=== PATIENT | female | born 1995 | race Caucasian/White ===

== ENCOUNTER 2023-12-08 09:33 | Outpatient (OUT) | payer MEDICAID, SELFPAY ==
--- NOTE | 2023-12-08 09:36 | US_ITS ---
[address] [address] Patient Name: ZAINAB SAAVEDRA MRN: [id number] date: 1995 Sex: F Assigned Patient Location: [facility] Current Patient Location: [facility] Accession/Order Number: [id number] Exam Date: 12/08/2023 09:40 Report Date: 12/08/2023 10:17 At the request of: SHERRY REYNA Procedure: US OB transvaginal EXAMINATION: US OB transvaginal HISTORY: MISSED MENSES COMPARISON: No relevant comparison available. FINDINGS: GESTATIONAL SAC: Present and normal appearing. YOLK SAC: Present and normal appearing. POLE: Present and normal appearing. CARDIAC: Present. UTERUS: Normal size and appearance. OVARIES: Right: Normal. Left: Normal. CERVIX: 3.9 cm in length and closed. CUL-DE-SAC: Normal. OTHER: None. AGE BY LMP: 9 weeks 3 days EBEN BY LMP: 07/09/2024 AGE BY US CRL: 9 weeks 3 days EBEN BY US CRL: 07/09/2024 US/US OB transvaginal IMPRESSION: 1. Single live intrauterine . Electronically authenticated by: SUKHWINDER RASHID Date: 12/08/2023 10:17
== END 2023-12-08 09:34 | disposition home or self-care (01) ==
LOC: NOMS 09:34
PROVIDERS: PCP Family Medicine; Visit Provider Obstetrics & Gynecology
DX: Z34.91 Encounter for supervision of normal pregnancy, unspecified, first trimester (principal); Z3A.09 9 weeks gestation of pregnancy; N92.6 Irregular menstruation, unspecified
CPT/HCPCS: 76817

== ENCOUNTER 2024-02-06 20:04 | Outpatient (REF) | payer MEDICAID, SELFPAY | END 2024-02-06 20:05 | disposition home or self-care (01) | LOC: LAB 20:04 | PROVIDERS: PCP Family Medicine; Visit Provider Obstetrics & Gynecology | DX: Z01.419 Encounter for gynecological examination (general) (routine) without abnormal findings (principal) | CPT/HCPCS: 87624; 88175 ==

== ENCOUNTER 2024-02-16 12:31 | Outpatient (OUT) | payer MEDICAID, SELFPAY ==
--- OUTSIDE RECORDS SUMMARY | 2024-02-16 12:39 | XMS_ITS | CCD ---
Author Organization [facility] Inform ion Partnership [facility] Care Team Providers Care Account Services Specialist Name Role Phone Trang Harrison Unavailable Unavailable Prema Abraham Unavailable Unavaila ble PREMA ABRAHAM Admitting Unavailable PREMA ABRAHAM Attending Unavailable PREMA ABRAHAM Primary Care Unavailable ALLISON TOWNSEND V Consulting Unavailable PREMA ABRAHAM Consulting Unavailable Prema Abraham MD Primary Care Provider Prema Abraham MD Primary Care Provider PREMA ABRAHAM Primary Care Unavailable SHERRY REYNA Referring Unavailable PREMA ABRAHAM Referring Unavailable PREMA ABRAHAM Primary Care Unavailable SURESH DIAZ Attending Unavailable PREMA ABRAHAM Referring Unavailable PREMA ABRAHAM Primary Care Unavailable PREMA ABRAHAM Referring Unavailable PREMA ABRAHAM Primary Care Unavailable PREMA ABRAHAM Referring Unavailable SHERRY REYNA Attending Unavailable Medications Current Medications Medication Drug Class(es) Dates Sig (Normalized) Sig (Original) benzonatate 100 mg oral capsule (2 sources) Non-narcotic Antitussive Start: 10-08-2023 take 1 capsule by mouth three times daily as needed for cough benzonatate (TESSALON PERLES) 100 mg capsule Take 1 capsule (100 mg total) by mouth 3 (three) times a day as needed for cough. 21 capsule 0 10/08/2023 Active cholecalciferol 0.025 mg chewable tablet (3 sources) Vitamin D cholecalciferol, vitamin D3, 25 mcg (1,000 unit) tablet,chewable Chew and swallow daily. 0 Active inFLIXimab-abda 100 mg injection (4 sources) Tumor Necrosis Factor Leo inFLIXimab-abda (RENFLEXIS) 100 mg injection Infuse 5 mg/kg into a venous catheter once. 0 Active inFLIXimab-axxq (AVSOLA) 100 mg injection Infuse 5 mg/kg into a venous catheter every 60 (sixty) days. 0 Active ondansetron 4 mg disintegrating oral tablet (2 sources) Serotonin-3 Receptor Antagonist Start: 10-08-2023 take 1 tablet by mouth every eight hours as needed for nausea ondansetron ODT (ZOFRAN ODT) 4 mg disintegrating tablet Dissolve 1 tablet (4 mg total) on tongue every 8 (eight) hours as needed for nausea for up to 10 doses. 10 tablet 0 10/08/2023 Active vit37/iron/folic acid (PRENATA ORAL) (3 sources) vit37/iron/folic acid (PRENATA ORAL) Take by mouth daily. 0 Active tiZANidine 4 mg oral tablet (3 sources) Central alpha-2 Adrenergic Agonist Start: 08-17-2021 tiZANidine (ZANAFLEX) 4 mg tablet Take 4 mg by mouth as needed in the morning and 4 mg as needed in the evening. 0 08/17/2021 Active vitamin b12 2.5 mg sublingual tablet (3 sources) Vitamin B12 take 1 tablet under the tongue once daily cyanocobalamin, vitamin B-12, 2,500 mcg tablet, sublingual Place 1 tablet under the tongue once daily. 0 Active Completed/Discontinued Medications Medication Drug Class(es) Dates Sig (Normalized) Sig (Original) inFLIXimab-axxq (AVSOLA) 5 mg/kg = 300 mg in sodium chloride 0.9 % 250 mL IVPB (2 sources) Start: 10-25-2023 End: 10-25-2023 inFLIXimab-axxq (AVSOLA) 5 mg/kg = 300 mg in sodium chloride 0.9 % 250 mL IVPB Start: 08-30-2023 End: 08-30-2023 inFLIXimab-axxq (AVSOLA) 5 m g/kg = 300 mg in sodium chloride 0.9 % 250 mL IVPB 1000 ml sodium chloride 9 mg /ml injection (2 sources) Start: 10-25-2023 End: 10-25-2023 sodium chloride 0.9 % infusi on Start: 08-30-2023 End: 08-30-2023 sodium chloride 0.9 % infusi on Problems Active Problems Problem Classification Problem Date Documented Da te Episodic/Chronic Genitourinary congenital anomalies (3 sources) Congenital hydronephrosis; Translations: [Congenital hydronephrosis] Onset: 12-03-2019 12-03-2019 Chronic Influenza (1 source) Influenza due to other identified influenza virus with other respiratory manifestations; Translations: [Influenza due to other identified influenza virus with other respiratory manifestations] Onset: 10-08-2023 Episodic Menstrual disorders (1 source) Irregular menstruation, unspecified; Translations: [Irregular menstruation, unspecified] Onset: 12-11-2023 Chronic Other skin disorders (1 source) Skin problem Onset: 10-08-2023 Episodic Regional enteritis and ulcerative colitis (11 sources) Crohn's disease of small AND large intestines; Translations: [Crohn's disease of both small and large intestine with unspecified complications] Onset: 12-03-2019 08-30-2023 Chronic Spondylosis; intervertebral disc disorders; other back problems (4 sources) Sciatica, right side; Translations: [SCIATICA RIGHT SIDE] Onset: 09-17-2019 Episodic Unclassified (1 source) Cold Like Symptoms Onset: 10-08-2023 Unclassified (1 source) Bleeding from stomach Onset: 10-08-2023 Unclassified (1 source) Outpatient Infusion Onset: 10-25-2023 Past or Other Problems Problem Classification Problem Date Documented Da te Episodic/Chronic Anal and rectal conditions (4 sources) Stricture of rectum; 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] Onset: 04-14-2020 04-14-2020 Episodic Mood disorders (3 sources) Mood disorders Onset: 03-04-2021 03-04-2021 Nutritional deficiencies (3 sources) Deficiency of macronutrients; Translations: [Unspecified severe protein-calorie malnutrition] Onset: 12-03-2019 Resolved: 04-14-2020 04-14-2020 Chronic Open wounds of head; neck; and trunk (3 sources) Finding of sacral region; Translations: [Unspecified open wound of lower back and pelvis without penetration into retroperitoneum, initial encounter] Onset: 10-30-2019 10-30-2019 Episodic Other gastrointestinal disorders (3 sources) Abdominal wall fistula; 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] Onset: 10-23-2019 10-23-2019 Episodic Ovarian cyst (3 sources) Cyst of right ovary; Translations: [Unspecified ovarian cyst, right side] Onset: 11-11-2021 11-11-2021 Episodic Results Test Name Value Interpretation Reference Range Facility CBC AND AUTO DIFFon 12-11-19 24 ABSOLUTE BASOPHIL 0.0 X10E9/L Normal 0.0-0.2 [facility] Comment on above: Performed By: #### C AGNES, 1989-11, HA1C, CBCA, 5196-1, 21065-8, 48657-0, 2132-9, 82358-1, 8014-3, 34411-9 #### [facility] ([id number]) [address], [address] [place] [address] ABSOLUTE NEUTROPHIL 5.5 X10E9/L Normal 1.5-6.6 [facility] Comment on above: Performed By: #### C AGNES, 1989-11, HA1C, CBCA, 5196-1, 32474-2, 82808-7, 2132-9, 91324-0, 8014-3, 42332-0 #### [facility] ([id number]) [address], [address] [place] [address] Basophils/100 WBC (Bld) 0.3 % Normal [facility] Comment on above: Performed By: #### C AGNES, 1989-11, HA1C, CBCA, 5196-1, 63778-4, 92825-1, 2132-9, 65954-3, 8014-3, 91949-6 #### [facility] ([id number]) [address], [address] [place] [address] Eosinophils (Bld) [#/Vol] 0.2 10*3/uL Normal 0.0-0.4 [facility] Comment on above: Performed By: #### C AGNES, 1989-11, HA1C, CBCA, 5196-1, 34427-1, 94072-8, 2132-9, 74564-6, 8014-3, 96368-6 #### [facility] ([id number]) [address], [address] [place] [address] Eosinophils/100 WBC (Bld) 2.6 % Normal [facility] Comment on above: Performed By: #### C AGNES, 1989-11, HA1C, CBCA, 5196-1, 42078-9, 19092-5, 2131-9, 99858-1, 8014-3, 33345-8 #### [facility] ([id number]) [address], [address] [place] [address] Erythrocyte distribution width (RBC) [Ratio] 13.3 % Normal 11.5-15.0 [facility] Comment on above: Performed By: #### C AGNES, 1989-11, HA1C, CBCA, 5196-1, 71765-4, 72496-2, 2131-9, 99952-6, 8014-3, 52204-0 #### [facility] ([id number]) [address], [address] [place] [address] Hematocrit (Bld) [Volume fraction] 40.5 % Normal 35-47 [facility] Comment on above: Performed By: #### C AGNES, 1989-11, HA1C, CBCA, 5196-1, 73974-4, 21716-7, 2131-9, 83025-6, 8014-3, 99526-5 #### [facility] ([id number]) [address], [address] [place] [address] Hemoglobin (Bld) [Mass/Vol] 14.2 g/dL Normal 11.7-15.5 [facility] Comment on above: Performed By: #### C AGNES, 1987-11, HA1C, CBCA, 5196-1, 57557-6, 94712-2, 2131-9, 75024-7, 8014-3, 25303-7 #### [facility] ([id number]) [address], [address] [place] [address] Lymphocytes (Bld) [#/Vol] 1.3 10*3/uL Normal 1.0-3.5 [facility] Comment on above: Performed By: #### C AGNES, 1989-11, HA1C, CBCA, 5196-1, 49663-0, 19788-8, 2132-9, 42611-1, 8014-3, 07313-4 #### [facility] ([id number]) [address], [address] [place] [address] Lymphocytes/100 WBC (Bld) 18.2 % Normal [facility] Comment on above: Performed By: #### C AGNES, 1989-11, HA1C, CBCA, 5196-1, 49403-5, 09577-8, 2131-9, 10137-5, 8014-3, 56070-0 #### [facility] ([id number]) [address], [address] [place] [address] MCH (RBC) [Entitic mass] 30.7 pg Normal 27-34 [facility] Comment on above: Performed By: #### C AGNES, 1989-11, HA1C, CBCA, 5196-1, 78969-2, 95433-6, 2131-9, 89809-3, 8014-3, 75008-0 #### [facility] ([id number]) [address], [address] [place] [address] MCHC (RBC) [Mass/Vol] 35.2 g/dL Normal 32-36 [facility] Comment on above: Performed By: #### C AGNES, 1987-11, HA1C, CBCA, 5196-1, 18303-8, 27340-7, 2131-9, 18804-9, 8014-3, 18515-1 #### [facility] ([id number]) [address], [address] [place] [address] MCV (RBC) [Entitic vol] 87 fL Normal 80-100 [facility] Comment on above: Performed By: #### C AGNES, 1989-11, HA1C, CBCA, 5196-1, 99455-0, 18931-7, 2131-9, 10852-2, 8014-3, 55783-6 #### [facility] ([id number]) [address], [address] [place] [address] Monocytes (Bld) [#/Vol] 0.4 10*3/uL Normal 0-0.9 [facility] Comment on above: Performed By: #### C AGNES, 1989-11, HA1C, CBCA, 5196-1, 23535-7, 36300-8, 2131-9, 93439-5, 8014-3, 63965-8 #### [facility] ([id number]) [address], [address] [place] [address] Monocytes/100 WBC (Bld) 5.1 % Normal [facility] Comment on above: Performed By: #### C AGNES, 1989-11, HA1C, CBCA, 5196-1, 25355-8, 91375-1, 9, 89821-1, 8014-3, 66545-6 #### [facility] ([id number]) [address], [address] [place] [address] Neutrophils/100 WBC (Bld) 73.8 % Normal [facility] Comment on above: Performed By: #### C AGNES, 1989-11, HA1C, CBCA, 5196-1, 71323-5, 79286-0, 2131-9, 96302-9, 8014-3, 45465-7 #### [facility] ([id number]) [address], [address] [place] [address] Platelet mean volume (Bld) [Entitic vol] 9.1 fL Normal 7-12 [facility] Comment on above: Performed By: #### C AGNES, 1987-11, HA1C, CBCA, 5196-1, 03702-1, 70917-5, 2131-9, 52284-0, 8014-3, 26244-3 #### [facility] ([id number]) [address], [address] [place] [address] Platelets (Bld) [#/Vol] 254 10*3/uL Normal 150-450 [facility] Comment on above: Performed By: #### C AGNES, 1987-11, HA1C, CBCA, 5196-1, 54621-5, 68928-7, 2132-9, 23664-5, 8014-3, 07660-3 #### [facility] ([id number]) [address], [address] [place] [address] RBC COUNT 4.63 X10E12/L Normal 3.80-5.20 [facility] Comment on above: Performed By: #### C AGNES, 1987-11, HA1C, CBCA, 5196-1, 63972-4, 00922-8, 2132-9, 33205-6, 8014-3, 71671-1 #### [facility] ([id number]) [address], [address] [place] [address] WBC (Bld) [#/Vol] 7.4 10*3/uL Normal 4.0-11.0 [facility] Comment on above: Performed By: #### Clyde ALARCON, 1989-11, HA1C, CBCA, 5196-1, 95210-5, 43082-2, 2132-9, 52359-5, 8014-3, 90216-0 #### [facility] ([id number]) [address], [address] [place] [address] COMPREHENSIVE METABOLIC PANE Jesse 12-11-2023 Albumin [Mass/Vol] 4.3 g/dL Normal 3.2-5.3 [facility] Comment on above: Performed By: #### Clyde ALARCON, 1989-11, HA1C, CBCA, 5196-1, 58150-4, 72415-5, 2132-9, 42190-6, 8014-3, 47990-0 #### [facility] ([id number]) [address], [address] [place] [address] ALP [Catalytic activity/Vol] 48 U/L Normal 39-130 [facility] Comment on above: Performed By: #### C AGNES, 1989-11, HA1C, CBCA, 5196-1, 38832-6, 96678-5, 2132-9, 45319-8, 8014-3, 29781-7 #### [facility] ([id number]) [address], [address] [place] [address] ALT [Catalytic activity/Vol] 13 U/L Normal 0-31 [facility] Comment on above: Performed By: #### C AGNES, 1989-11, HA1C, CBCA, 5196-1, 74949-6, 11632-0, 2131-9, 68250-9, 8014-3, 05873-4 #### [facility] ([id number]) [address], [address] [place] [address] Anion gap [Moles/Vol] 10 mmol/L Normal 5-15 [facility] Comment on above: Performed By: #### C AGNES, 1989-11, HA1C, CBCA, 5196-1, 02694-8, 86663-7, 2131-9, 46299-6, 8014-3, 15062-5 #### [facility] ([id number]) [address], [address] [place] [address] AST [Catalytic activity/Vol] 17 U/L Normal 0-41 [facility] Comment on above: Performed By: #### C AGNES, 1987-11, HA1C, CBCA, 5196-1, 40591-5, 69321-0, 2132-9, 69800-4, 8014-3, 11024-1 #### [facility] ([id number]) [address], [address] [place] [address] Bilirubin [Mass/Vol] 0.7 mg/dL Normal 0.3-1.2 [facility] Comment on above: Performed By: #### C AGNES, 1987-11, HA1C, CBCA, 5196-1, 49406-6, 33967-3, 2131-9, 55984-3, 8014-3, 62299-7 #### [facility] ([id number]) [address], [address] [place] [address] Calcium [Mass/Vol] 9.5 mg/dL Normal 8.5-10.5 [facility] Comment on above: Performed By: #### C AGNES, 1987-11, HA1C, CBCA, 5196-1, 81117-9, 06504-9, 2131-9, 94625-9, 8014-3, 89751-1 #### [facility] ([id number]) [address], [address] [place] [address] Chloride [Moles/Vol] 104 mmol/L Normal 98-109 [facility] Comment on above: Performed By: #### C AGNES, 1987-11, HA1C, CBCA, 5196-1, 80820-6, 92218-5, 2131-9, 70938-6, 8014-3, 11486-3 #### [facility] ([id number]) [address], [address] [place] [address] CO2 [Moles/Vol] 23 mmol/L Normal 22-32 [facility] Comment on above: Performed By: #### C AGNES, 1987-11, HA1C, CBCA, 5196-1, 07145-3, 28574-2, 2131-9, 20184-3, 8014-3, 03390-3 #### [facility] ([id number]) [address], [address] [place] [address] Creatinine [Mass/Vol] 0.49 mg/dL Normal 0.40-1.00 [facility] Comment on above: Result Comment: METH OD TRACEABLE TO IDMS STANDARD Performed By: #### C AGNES, 1989-11, HA1C, CBCA, 5196-1, 27619-3, 35257-8, 2131-9, 46241-1, 8014-3, 28849-7 #### [facility] ([id number]) [address], [address] [place] [address] eGFR (CKD-EPI) NON-RACE DEPENDENT >90 Normal >59 [facility] Comment on above: Result Comment: Reported eGFR is based on the CKD-EPI 2020 equation that does not use a race coefficient. Performed By: #### C AGNES, 1987-11, HA1C, CBCA, 5196-1, 90646-6, 06925-7, 2131-9, 17344-0, 8014-3, 98822-5 #### [facility] ([id number]) [address], [address] [place] [address] Glucose [Mass/Vol] 92 mg/dL Normal 65-99 [facility] Comment on above: Performed By: #### C AGNES, 1987-11, HA1C, CBCA, 5196-1, 99371-2, 62181-5, 2131-9, 17126-5, 8014-3, 06770-9 #### [facility] ([id number]) [address], [address] [place] [address] Potassium [Moles/Vol] 4.1 mmol/L Normal 3.5-5.0 [facility] Comment on above: Performed By: #### Clyde ALARCON, 1989-11, HA1C, CBCA, 5196-1, 59996-5, 87667-9, 2131-9, 35296-1, 8014-3, 29197-9 #### [facility] ([id number]) [address], [address] [place] [address] Protein [Mass/Vol] 7.5 g/dL Normal 6.0-8.0 [facility] Comment on above: Performed By: #### C AGNES, 1987-11, HA1C, CBCA, 5196-1, 64929-8, 12376-4, 2132-9, 04100-1, 8014-3, 68826-5 #### [facility] ([id number]) [address], [address] [place] [address] Sodium [Moles/Vol] 137 mmol/L Normal 134-146 [facility] Comment on above: Performed By: #### C AGNES, 1987-11, HA1C, CBCA, 5196-1, 50579-4, 55911-3, 2132-03, 55695-2, 8014-3, 93717-8 #### [facility] ([id number]) [address], [address] [place] [address] Urea nitrogen [Mass/Vol] 6 mg/dL Normal 5-23 [facility] Comment on above: Performed By: #### C AGNES, 1987-11, HA1C, CBCA, 5196-1, 64291-5, 65877-7, 2132-03, 49664-7, 8014-3, 58204-0 #### [facility] ([id number]) [address], [address] [place] [address] CRP [Mass/Vol]on 12-11-2023 C REACTIVE PROTEIN 0.5 mg/dL Normal 0.000-0.744 [facility] Comment on above: Performed By: #### C AGNES, 1989-11, HA1C, CBCA, 5196-1, 50935-0, 85963-8, 2132-03, 99426-2, 8014-3, 02537-3 #### [facility] ([id number]) [address], [address] [place] [address] HBV surface Ag IA Qlon 12-10 HEPATITIS B SURF AG Negative Normal NEG [facility] Comment on above: Performed By: #### C AGNES, 1989-11, HA1C, CBCA, 5196-1, 75589-7, 97315-5, 9, 59926-6, 8014-3, 93579-4 #### [facility] ([id number]) [address], [address] [place] [address] HCV Ab IA Qlon 12-11-2023 ANTI HCV W/PCR REFLX Non-Reactive Normal NRCT Pr [facility] Comment on above: Result Comment: If recent infection suspected, recommend repeat testing (>2 months). Cnkqgh-fh-bnrxec ratio is <0.80. Performed By: #### C AGNES, 1989-11, HA1C, CBCA, 5196-1, 95092-8, 05353-8, 2131-9, 14443-4, 8014-3, 09300-5 #### [facility] ([id number]) [address], [address] [place] [address] HGB A1C (GLYCO-HGB)on 2023 Glucose [Mass/Vol] 103 mg/dL Normal [facility] Comment on above: Performed By: #### C AGNES, 1989-11, HA1C, CBCA, 5196-1, 15038-3, 97354-9, 2131-9, 59523-3, 8014-3, 62162-3 #### [facility] ([id number]) [address], [address] [place] [address] HbA1c (Bld) [Mass fraction] 5.2 % Normal 4.4-5.6 [facility] Comment on above: Result Comment: NOTE ADA Guidelines Result HgbA1c Normal : less than 5.7 % Prediabetes : 5.7 % to 6.4 % Diabetes : > 6.4 % Use with caution in patients with abnormal hemoglobin variants as the half-life of red blood cells and in vivo glycation rates are affected. Performed By: #### C AGNES, 1989-11, HA1C, CBCA, 5196-1, 30034-5, 57187-7, 2131-9, 80978-1, 8014-3, 13463-8 #### [facility] ([id number]) [address] [place] [address], [address] [place] [address] HIV 1+2 Ab+HIV1 p24 Ag IA Ql on 12-11-2023 HIV 1 and 2 Ab/Ag Screen Non-Reactive Normal NRCT [facility] Comment on above: Result Comment: This information has been disclosed to you from confidential records protected from disclosure by state law. You shall make no further disclosure of this information without the specific, written and informed release of the individual to whom it pertains, or as otherwise permitted by state law. A general authorization for the release of medical or other information is not sufficient for the purpose of the release of HIV test results or diagnoses. Performed By: #### C AGNES, 1989-11, HA1C, CBCA, 5196-1, 16876-0, 80919-7, 2132-03, 57843-4, 8014-3, 76382-1 #### [facility] ([id number]) [address] [place] [address], [address] [place] [address] Rubella virus IgG Qn (S)on 0 12-11-2023 RUBELLA IgG 30 IU/mL Normal [facility] Comment on above: Result Comment: Interpretation-------- <8 NEGATIVE-considered Not Immune 8-9 EQUIVOCAL-consider retesting with new specimen >9 POSITIVE-considered Immune Performed By: #### C AGNES, 1987-11, HA1C, CBCA, 5196-1, 59774-9, 59898-1, 9, 02548-2, 8014-3, 11112-8 #### [facility] ([id number]) [address] [place] [address], [address] [place] [address] T. pallidum IgG+IgM IA Ql (S )on 12-11-2023 Syphilis Total <0.2 Normal 0.0-0.8 [facility] Comment on above: Result Comment: NON REACTIVE No serologic evidence of infection to Treponema pallidum (syphilis). Repeat testing may be considered in patients with suspected acute or primary syphilis in 2 to 4 weeks. Performed By: #### C AGNES, 1989-11, HA1C, CBCA, 5196-1, 24425-4, 69673-9, 9, 35411-9, 8014-3, 96190-1 #### [facility] ([id number]) [facility], [address] [place] [address] VITAMIN B12on 12-11-2023 Cobalamin (Vitamin B12) [Mass/Vol] 142 pg/mL Low 180-914 [facility] Comment on above: Performed By: #### C AGNES, 1989-11, HA1C, CBCA, 519-1, 75961-2, 66483-7, 2132-03, 70558-6, 8014-3, 29403-3 #### [facility] ([id number]) [address], [address] [place] [address] Vitamin D+Metabolites [Mass/ Vol]on 12-11-2023 VITAMIN D 25 HYD TOT 21.8 ng/mL Low 30-100 [facility] Comment on above: Result Comment: Vitamin D status 25 [place] Vitamin D Deficiency <20 ng/mL Insufficiency 20-29 ng/mL Sufficiency 30-100 ng/mL Toxicity >100 ng/mL NOTE: A pediatric reference range has not been established by the charter boat captain of this kit. The [employer] recommends a Vitamin D level of = or >20ng/mL in infants and children. Performed By: #### C AGNES, 1989-11, HA1C, CBCA, 5196-1, 13225-6, 08421-5, 9, 02368-7, 8014-3, 51243-7 #### [facility] ([id number]) [address], [address] [place] [address] SARS/FLU A+B/RSV by NAAT/Mol elanaularon 10-08-2023 SARS/FLU A+B/RSV by NAAT/Molecular FLU A PCR Negative (qualifier value) FLU B PCR Positive (qualifier value) RSV by PCR Negative (qualifier value) SARS CoV 2 Not detected (qualifier value) NOTE The Xpert Xpress SARS-CoV-2/Flu/RSV Plus test is a rapid, multiplexed real-time RT-PCR test intended for the simultaneous qualitative detection and differentiation of SARS-CoV-2, influenza A, influenza B and respiratory syncytial virus (RSV) viral RNA from individuals suspected of respiratory viral infection consistent with COVID-19 by their healthcare provider. This test has not been validated in asymptomatic patients. The Xpert Xpress SARS-CoV-2 test is intended for use by qualified and trained operators who are performing tests using either [employer] or [employer] systems and is limited to laboratories that meet the CLIA requirements to perform high and moderate complexity tests. The Xpert Xpress SARS-CoV-2/Flu/RSV Plus is only for use under the Food and Drug Administration's Emergency Use Authorization. Results are for the simultaneous detection and differentiation of SARS-CoV-2, influenza A, influenza B and RSV nucleic acids in clinical specimens. SARS-CoV-2, influenza A, influenza B and RSV RNA identified by this test are generally detectable in upper respiratory samples during the acute phase of infection. Positive results are indicative of the presence of the identified virus, but do not rule out bacterial infection or co-infection with other pathogens not detected by this test. Clinical correlation with patient history and other diagnostic information is necessary to determine patient infection status. The agent detected may not be the definite cause of disease. Negative results do not preclude SARS-CoV-2, influenza A, influenza B and RSV infection and should not be used as the sole basis for treatment or other patient management decisions. Negative results must be combined with clinical observations, patient history and epidemiological information. An Invalid result may occur with specimen-associated inhibition unable to be resolved with specimen repeat. Fact Sheet for Healthcare Providers: https://www.fda.gov/media /601956/download Fact Sheet for Patients: https://www.fda.gov/media /848761/download Normal [facility] Comment on above: Performed By: #### C OVFLR #### [facility] ([id number]) [address] [place] [address], [place] [address] Consultation Noteon 12-18-19 20 Consultation Note [id number] Normal [facility] Ambulatory Patient Education on 06-04-2018 Ambulatory Patient Education Patient Education MaterialsName: Zainab Maldonado Current Date: 06/04/2018 11:43:12 [place] 1995 following sheet(s) are the Patient Education Leaflets for Zainab Maldonado Normal [facility] Gastroenterology Office/Clin ic Noteon 06-04-2018 Gastroenterology Office/Clinic Note Chief Complaint CrohnsHistory of Present Illness Ms. Maldonado is a 22 year old who presents for management of her recently diagnosed Crohn's disease. She states that the pain started in September of 2017 - adding that prior to this she had no related symptoms. She states that she then developed vomiting which led to her visit to her PCP. She states that an MRI was ordered which showed that there were lesions in her bowels which led to her being referred to Dr. Bowers at [facility] in [place]. She states that she had a colonoscopy done and was told that she needed to start Prednisone 60mg daily and has been on that dose with no further instructions since her diagnostic colonoscopy in March 2018. She states that no other blood tests were done. IBD diagnosis year: 04/17/2018 Type of IBD: Crohn's ileo-colitis Surgeries: on October 2016; no other abdominal surgeries Medications for IBD: No medications other than steroids. Currently on 20mg three times a day which she states she was placed on indefinitely. Extra-intestinal manifestations: Denies any rashes or aphthous ulcers Blood in stool: None Number of BMs: About 2-3 per day Stool consistency: Loose stools History of C-diff: None Current Symptoms: She reports that her only symptoms are abdominal pain and cramping which is intermittent FH of IBD: None FH of colon cancer: None Tobacco use: Does not NSAID use: None DEXA: Never had one Vaccines: Never received vaccine Pap smear: Last done at the time of in 2017 Dermatology: None. No family history of skin cancer Nutrition: No dietary restrictions Anemia: Reports that she was told that she has anemia Imaging history: CT done in February 2018 Endoscopy history: Colonoscopy done on 04/17/2018 at [facility] Constitutional: 45 pound weight loss since September 2017, fever, malaise or weakness Head, Neck, Eyes: No sinus infections, redness, discharge, bleeding, hearing loss Respiratory: No wheezing, shortness of breath, or breathing difficulty. Cardiovascular: No chest pain, syncope, palpitations Gastrointestinal: See HPI Musculoskeletal: No degenerative bone disease, arthralgia, injury, deformity, muscle atrophy, no fibromyalgia Integument: No contact dermatitis, no melanoma, no rash, skin color changes Neurological: No focal weakness, numbness, tingling, seizure, no TIA, Parkinson?s disease Endocrine: No prior history of DM II, no hypo or hyperthyroid concerns Lymphatics: No prior history of lymphadenopathy Psychiatric: No history of depression, anxiety Hematologic/Oncologic: No easy bruising, no bleeding disorders All other systems are negativePhysical Exam Vitals & Measurements BP: 110/82 HT: 155 cm WT: 52.95 kg BMI: 22.04 General: Thin woman in no acute distress HEENT: PERRLA, EOMI Respiratory: CTABL, no wheezing Cardiovascular: RRR, no gallops or rubs Gastrointestinal: Non-distended, no surgical scars noted, positive bowel sounds on all quadrants, non-tender to palpation. Rectal/: Deferred Integument: No lesions noted Neurological: Alert and oriented to person, place and time. Lymphatics: No cervical or inguinal lymphadenopathy Psychiatric: Appropriate appearance, pleasant and conversational Additional Vitals Body Mass Index Measured: 22.04 kg/m2 BP Position/Location: Sitting, Left arm Peripheral Pulse Rate: 125 bpm HighAssessment/Plan Crohn's disease Ms. Maldonado is a 22 year old woman with a new diagnosis of Crohn's ileo-colitis who is biologic naive, on 60mg of oral steroids since 04/17/2018. She states that she has no health insurance and has no means of paying for any tests or medications. It is possible that this is the reason she was placed on steroids at the OSH GI physician. She states that she is about to apply for medicaid and will return for additional testing once this is done. - Will start with compassionate use application for Remicade or Humira. Likely Remicade since she will likely have medicaid. - She mentioned that she will refuse all vaccines; cannot start biologics without vaccination and testing for hepatitis viruses, TB testing and pneumonia testing. - Will hold off on additional tests as she has reported her financial concern and need to obtain her insurance first. F/U in 2-4 weeks - sooner if possible. Will order taper for steroids so she can some down to 40mg daily.Physician Comments Attestation: I attest that I saw the patient for the entirety of the clinic visit ? spending approximately 45 minutes with greater than 70% of the time spent being face to face. Labs, prior imaging, prior notes, pertinent additional OSH records were also reviewed.Problem List/Past Medical History Ongoing No qualifying data Historical No qualifying dataMedications predniSONE 20 mg oral tablet, 20 mg, 1 tabs, Oral, DailyAllergies No Known AllergiesSocial History Alcohol Never Substance Abuse Denies All Tobacco Never (less than 100 in lifetime) Use:. Stay at home motherFamily History Family history is unknown Brother (36) has DM II Mother (56) : IBS Father (57): GERDDiagnostic Results No qualifying data available. No qualifying data available. No qualifying data available. No qualifying data available.Electronically signed by _Hunter KHAN, Trang N 06/05/18 15:[facility] Crohn's disease involving the ascending colon, cecum, terminal ileum IC valve was visualized and abnormal with ulceration and stenosis Pathology report: Ileum:mild acute and chronic ileitis with tall and slender, intact intestinal villi lining the ileum Colon, ascending: active colitis with rare crypt abscesses, cryptitis and focal srchitectural distortion. Findings are consistent with CD in this settingElectronically signed by _Trang Harrison MD 06/05/18 15:58 EST [facility] Vital Signs Date Time Vital Sign Value Performing Clinician Yoseph bradford 10-25-2023 11:28-0400 Body temperature 99.1 [degF] [facility] 10-25-2023 11:28-0400 Diastolic blood pressure 62 mm[Hg] [facility] 2 [facility] 10-25-2023 11:28-0400 Heart rate 74 /min [facility] 10-25-2023 11:28-0400 Respiratory rate 18 /min [facility] 10-25-2023 11:28-0400 Systolic blood pressure 97 mm[Hg] [facility] 10-25-2023 08:54-0400 Body mass index (BMI) [Ratio] 25.32 kg/m2 [facility] 2 [facility] 10-25-2023 08:54-0400 Body weight 60.78 kg [facility] 2 [facility] 08-30-2023 11:44-0500 Body temperature 98.2 [degF] [facility] 1 [facility] 08-30-2023 11:44-0500 Diastolic blood pressure 68 mm[Hg] [facility] 1 [facility] 08-30-2023 11:44-0500 Heart rate 73 /min [facility] 1 [facility] 08-30-2023 11:44-0500 SaO2% (BldA) [Mass fraction] 98 % [facility] 1 [facility] 08-30-2023 11:44-0500 Systolic blood pressure 99 mm[Hg] [facility] 1 [facility] 08-30-2023 09:00-0500 Body mass index (BMI) [Ratio] 26.38 kg/m2 [facility] 1 [facility] 08-30-2023 09:00-0500 Body weight 63.32 kg [facility] 1 [facility] Encounters Encounter Date Encounter Type Care Provider Facility Start: 01-09-2024 End: 01-09-2024 ambulatory SHERRY IRVINGO Not Available Start: 12-20-2023 End: 12-20-2023 ambulatory PREMA Green JARAD [facility] Start: 12-11-2023 End: 12-12-2023 ambulatory SHERRY R AXEL [facility] Start: 12-08-2023 End: 12-08-2023 ambulatory SHERRY IRVINGO Not Available Start: 11-30-2023 End: 11-30-2023 ambulatory SURESH DIAZ [facility] Start: 10-25-2023 End: 10-25-2023 ambulatory [facility] 2 [facility] Comment on above: Crohn's disease of s mall and large intestines with complication (CMS-HCC) (Primary Dx) Start: 10-24-2023 Telephone encounter Amanda Khan [facility] Start: 10-08-2023 End: 10-08-2023 Emergency department patient visit PREMA ABRAHAM [facility] Start: 08-30-2023 End: 08-30-2023 [facility] Comment on above: Crohn's disease of s mall and large intestines with complication (CMS-HCC) (Primary Dx) Start: 09-17-2019 End: 09-18-2019 Patient encounter procedure PREMA ABRAHAM Facility: Start: 06-04-2018 End: 06-05-2018 Patient encounter procedure Trang Harrison Facility:[facility]astroenterol ogy [facility] Procedures Date Procedure Procedure Detail Performing Clinician Start: 11-30-2023 Follow-up visit Follow-up SURESH Noa VICFERNANDO Start: 11-11-2021 Microscopic observat ion [Identifier] in Cervix by Cyto stain [facility] 1 Start: 03-04-2021 Adult depression scr eening assessment [facility] 1 Start: 04-14-2020 H/O: colostomy Colostomy status [facility] 1 Start: 12-03-2019 H/O: ileostomy Ileostomy status [facility] 1 Plan of Treatment Date Care Activity Detail Author Start: 11-11-2024 Screening for malign ant neoplasm of cervix Pap Smear [facility] Start: 10-24-2024 Adult BMI Screening Adult BMI Screen ing [facility] Start: 10-07-2024 Tobacco Screening Tobacco Screening [facility] Start: 08-30-2024 Adult BMI Screening Adult BMI Screen ing [facility] Start: 05-10-2024 Tobacco Screening Tobacco Screening [facility] Start: 03-31-2024 Influenza vaccination Influenza Vacc ine [facility] Start: 12-20-2023 End: 12-20-2023 ambulatory 12/20/2023 9:00 AM EDT Infusion [facility] [address] [place] [phone] [facility] Start: 11-30-2023 End: 11-30-2023 Patient encounter procedure 11/30/2023 9:30 AM EDT Office Visit [facility] [address] [place] [phone] Suresh Diaz MD [address] [place] [place] [place] [address] [place] [address] [facility] Start: 10-25-2023 End: 10-25-2023 ambulatory 10/25/2023 9:00 AM EDT Infusion [facility] [address] [place] [phone] [facility] Start: 03-31-2023 Influenza vaccination Influenza Vacc [facility] Start: 03-04-2022 Depression Screening Depression Scre ening [facility] Start: 2012 DTaP,Tdap and Td Vaccines (1 - Tdap) DTaP,Tdap and Td Vaccines (1 - Tdap) [facility] End: 10-24-2024 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[employer] Lab Routine Crohn's disease of small and large intestines with complication (CMS-HCC) 1 Occurrences starting 10/25/2023 until 10/24/2024 [facility] Work Phone: Comment on above: 1 Occurrences starti ng 10/25/2023 until 10/24/2024 Payers Date Payer Category Payer Medicaid ANTH MEDICAID [facility] MEDICAID [id number] 2022-Present [address] [place] [address] [id number] 2022 Medicaid [id number] 1995 Unknown [id number] 1995 Unknown [id number] 1995 Unknown [id number] 1993 Unknown [id number] 1993 Unknown [id number] 1993 Unknown [id number] 1993 Unknown [id number] 1993 Unknown [id number] [id number] 1993 Unknown [id number] 1993 Unknown [id number] 1961 Self-pay [id number] 07-31-1799 Self-pay Social History Date Type Detail Facility Start: 07-05-2022 Tobacco smoking stat [facility] Never smoked tobacco [facility] Start: 07-05-2022 Tobacco use and exposure Smoke less tobacco non-user [facility] Start: 05-10-2023 End: 10-08-2023 Alcohol intake Current drinker of alcohol (finding) [facility] Start: 08-10-2020 End: 05-10-2023 Alcohol intake [facility] Start: 08-06-2020 End: 08-10-2020 Social connection and isolation panel [facility] Do you belong to any clubs or organizations such as hindu groups, unions, fraternal or athletic groups, or school groups? No [facility] Are you now , , , , never or living with a partner? [facility] How often to you hav e a drink containing alcohol? 2-4 times a month [facility] Average Number of Drinks Not on file [facility] Do you feel stress - tense, restless, nervous, or anxious, or unable to sleep at night because your mind is troubled all the time - these days [OSQ] Only a little [facility] Start: 12-22-2021 Alcohol Comment socially [facility] Start: 1995 Sex Assigned At Not on file [facility] Goals Date Patient Goal Desired Activity /State Personal health goal Comment on above: Formatting of this n ote might be different from the original. Evaluation of progress towards goal: Patient plans to return home with [facility] History of Present illness Narrative 10-25-2023 Paddy Vargas RN - 10/25/2023 9:00 AM EDTMbenedicto Osorio RN - 10/25/2023 9:00 AM Anika Vargas RN - 10/25/2023 9:00 AM EDT Note Date & Type Note Facility 10-25-2023 History of Presen t illness Narrative 0900 Patient here for Avsola infusion. Patient denies any recent infections, open wounds, recent/future surgery, or insurance changes . IV started with 22g needle to right AC by paddy gill x 1 attempt . Patient tolerated well. Avsola x 2 vials, lot# [id number], exp date Avsola x 1 vial, lot# [id number], exp date 02/27/2027 Time out performed with JAIRO Oh. 300 mg of avsola to be mixed and administered to patient per current treatment plan orders. 1128 am patient infusion complete. IV discontinued, catheter intact, vitals WNL. Patient tolerated infusion well Patient due for their Tuberculosis lab draw; order printed and given to patient. Instructed patient to have drawn; patient verbalized understanding of info given. documented in this encounter [facility] Note 10-24-2023 Telephone Encounter - Amanda Cole RN - 10/24/2023 1:26 PM EDTTelephone Encounter - Jayda Teixeira RN - 10/24/2023 1:26 PM EDT Note Date & Type Note Facility 10-24-2023 Miscellaneous Notes Formattin g of this note might be different from the original. Patient currently receiving Avsola 5mg/kg every 8 weeks. 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 Prior auth request forms completed for Remicade 5mg/kg to be given every 56 days, faxed to [phone] Remicade approved for 5mg/kg (400mg) for 7 visits from 10/25/2023-10/23/2024. Auth # [id number] Referral placed. Therapy plan updated. Flowsheet updated. documented in this encounter [facility] Telephone encounter Note 10-24-2023 Telephone Encounter - Amanda Cole RN - 10/24/2023 1:26 PM EDT Note Date & Type Note Facility 10-24-2023 Telephone encounter Note Patient currently receiving Avsola 5mg/kg every 8 weeks. 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 Prior auth request forms completed for Remicade 5mg/kg to be given every 56 days, faxed to [phone] [facility] Telephone encounter Note 10-24-2023 Telephone Encounter - Jayda Teixeira RN - 10/24/2023 1:26 PM EDT Note Date & Type Note Facility 10-24-2023 Telephone encount er Note Remicade approved for 5mg/kg (400mg) for 7 visits from 10/25/2023-10/23/2024. Auth # [id number] Referral placed. Therapy plan updated. Flowsheet updated. [facility] History of Present illness Narrative 08-30-2023 Juan M Osorio RN - 08/30/2023 9:00 AM ESTMocameron Osorio RN - 08/30/2023 9:00 AM EST Note Date & Type Note Facility 08-30-2023 History of Presen t illness Narrative 0906 Patient here for Avsola infusion. Patient denies any recent infections, open wounds, recent/future surgery, or insurance changes . Site cleansed with alcohol. IV started with 22g needle by Juan M GILL in right antecube. Patient tolerated well. 1142 patient infusion complete. IV discontinued at 1142. Patient tolerated infusion well. documented [facility] this [facility] Note Date & Type Note Facility Evaluation note Diagnosis Crohn's disease of small and large intestines with complication (CMS-HCC)- Primary documented in this encounter [facility] Evaluation note Note Date & Type Note Facility Evaluation note Diagnosis Crohn's disease of small and large intestines with complication (CMS-HCC)- Primary documented in this encounter [facility] Instructions Note Date & Type Note Facility Instructions Not on filedocumented in this en counter [facility] Instructions Note Date & Type Note Facility Instructions Not on filedocumented in this en counter [facility] Instructions Note Date & Type Note Facility Instructions Not on filedocumented in this en counter [facility] Summary Purpose Family History No Family History Records FoundNo Family History Records FoundNo Family History Records FoundNo Family History Records FoundNo Family History Records FoundNo Family History Records Found Advance Directives No Advanced Directives Records FoundLatest Code Status on File Code Status Date Activated Date Inactivated Comments Full Code 08/06/2020 1:34 PM 08/12/2020 7:54 PM Additional Source Comments INFORMATION SOURCE (unrecogn ized section and content) DATE CREATED AUTHOR 07/08/2018 [facility] DATE CREATED AUTHOR AUTHOR'S ORGANIZ ATION 09/20/2019 [facility] DATE CREATED AUTHOR AUTHOR'S ORGANIZ ATION 12/18/2019 [facility] DATE CREATED AUTHOR AUTHOR'S ORGANIZ ATION 12/12/2023 [facility] DATE CREATED AUTHOR AUTHOR'S ORGANIZ ATION 12/22/2023 [facility] DATE CREATED AUTHOR AUTHOR'S ORGANIZ ATION 01/09/2024 [facility] Specialists EPIC Reason for Visit (unrecogniz ed section and content) Reason Comments Outpatient Infusion [facility] Specialty Diagnoses / Procedures Referred By Theodore kohli Referred To Contact Gastroenterology Diagnoses Crohn's disease of both small and large intestine with unspecified complications Renflexis 400mg q8 weeks, 7 visits, 02.02.23 - 24, HK/CF, Crohn's Procedures INJECTION, INFLIXIMAB-AXXQ, BIOSIMILAR, (AVSOLA), 10 MG INFUSION Prema Abraham MD [address] [place] [id number] [facility] [address] [place] [id number] Referral ID Status Reason Start Date Expiration Date V isits Requested Visits Authorized [id number] Authorized 02/02/2023 02/02/2024 7 7 Reason Comments Outpatient Infusion [facility] Care Teams (unrecognized sec tion and content) Account Services Specialist Relationship Specialty Start Date End Date Prema Abraham MD [address] [place] [address] PCP - General Family Medicine 12/17/19 Account Services Specialist Relationship Specialty Start Date End Date Prema Abraham MD [address] [place] [address] PCP - General Family Medicine 10/08/23 Account Services Specialist Relationship Specialty Start Date End Date Prema Abraham MD [address] [place] [address] PCP - General Family Medicine 10/08/23 FOR RECORDS PERTAINING TO PATIENTS WHO ARE OR HAVE BEEN ENROLLED IN A CHEMICAL DEPENDENCY/SUBSTANCEABUSE PROGRAM, SOME INFORMATION MAY BE OMITTED. This clinical summary was aggregated from multiple sources. Caution should be exercised in using it in the provision of clinical care. This summary normalizes information from multiple sources, and as a consequence, information in this document may materially change the coding, format and clinical context of patient data. In addition, data may be omitted in some cases. CLINICAL DECISIONS SHOULD BE BASED ON THE PRIMARY CLINICAL RECORDS. [employer] provides no warranty or guarantee of the accuracy or completeness of information in this document.
[2024-02-19 18:08] LABS: AFP Value 80.1 ng/mL (.); Gest. Age on Collection Date 19.4 weeks (.); Insulin Dep Diabetes No (.); Maternal Age At EDD 30.9 yr (.); OSBR Risk 1 IN 3920 (.); Results Report (.)
== END 2024-02-16 12:32 | disposition home or self-care (01) ==
LOC: LAB 12:32
PROVIDERS: PCP Family Medicine; Visit Provider Obstetrics & Gynecology
DX: Z34.92 Encounter for supervision of normal pregnancy, unspecified, second trimester (principal); Z3A.18 18 weeks gestation of pregnancy
CPT/HCPCS: 36415; 82105

== ENCOUNTER 2024-03-27 09:31 | Outpatient (OUT) | payer MEDICAID, SELFPAY ==
--- OUTSIDE RECORDS SUMMARY | 2024-03-27 09:50 | XMS_ITS | CCD ---
Author Organization [facility] Inform ion Partnership [facility] Care Team Providers Care Distribution Agent Name Role Phone Trang Harrison Unavailable Unavailable Prema Abraham Unavailable UnavailPREMA Plasencia Admitting Unavailable PREMA ABRAHAM Attending Unavailable PREMA ABRAHAM Primary Care Unavailable ALLISON TOWNSEND V Consulting Unavailable PREMA ABRAHAM Consulting Unavailable Prema Abraham MD Primary Care Provider [phone] Prema Abraham MD Primary Care Provider PREMA ABRAHAM Primary Care Unavailable SHERRY REYNA Referring Unavailable PREMA ABRAHAM Referring Unavailable SHERRY REYNA Attending Unavailable SHERRY REYNA Attending Unavailable CARLOS ANDREWS Attending Unavailable PREMA ABRAHAM Referring Unavailable PREMA ABRAHAM Primary Care Unavailable SURESH DIAZ Attending Unavailable PREMA ABRAHAM Referring Unavailable PREMA ABRAHAM Primary Care Unavailable PREMA ABRAHAM Referring Unavailable SHERRY REYNA Referring Unavailable MAYCO ROMAN Attending Unavailable JANNA MACDONALD Referring Unavailab SURESH Garces Attending Unavailable PREMA ABRAHAM Primary Care Unavailable YADIRA CHAU Attending Unavaila MAYCO Veras Referring Unavailable PREMA ABRAHAM Primary Care Unavailable YADIRA CHAU Referring Unavaila PREMA Mahan Primary Care Unavailable PREMA ABRAHAM Referring Unavailable PREMA ABRAHAM Primary Care Unavailable Medications Current Medications Medication Drug Class(es) [...] Active Problems Problem Classification Problem Date Documented Date Episodic/Chronic Cardiac and circulatory congenital anomalies (1 source) Other specified congenital malformations of heart; Translations: [Other specified congenital malformations of heart] Onset: 03-19-2024 Chronic Genitourinary congenital anomalies (3 sources) Congenital hydronephrosis; Translations: [Congenital hydronephrosis] Onset: 12-03-2019 12-03-2019 Chronic Influenza (1 source) Influenza due to other identified influenza virus with other respiratory manifestations; Translations: [Influenza due to other identified influenza virus with other respiratory manifestations] Onset: 10-08-2023 Episodic Menstrual disorders (1 source) Irregular menstruation, unspecified; Translations: [Irregular menstruation, unspecified] Onset: 12-11-2023 Chronic Nutritional deficiencies (4 sources) Deficiency of macronutrients; Translations: [Unspecified severe protein-calorie malnutrition] Onset: 12-03-2019 Resolved: 04-14-2020 04-14-2020 Chronic Nutritional deficiencies (1 source) Deficiency of other specified B group vitamins; Translations: [Deficiency of other specified B group vitamins] Onset: 02-29-2024 Episodic Other complications of (1 source) Supervision of high risk , unspecified, unspecified trimester; Translations: [Supervision of high risk , unspecified, unspecified trimester] Onset: 02-20-2024 Episodic Other screening for suspected conditions (not mental disorders or infectious disease) (3 sources) Encounter for other specified screening; Translations: [Encounter for screening for congenital cardiac abnormalities] Onset: 02-20-2024 Episodic Other skin disorders (1 source) Skin problem Onset: 10-08-2023 Episodic Previous (1 source) Maternal care for unspecified type scar from previous delivery; Translations: [Maternal care for unspecified type scar from previous delivery] Onset: 02-20-2024 Episodic Regional enteritis and ulcerative colitis (13 sources) Crohn's disease of small AND large intestines; Translations: [Crohn's disease of both small and large intestine with unspecified complications] Onset: 12-03-2019 08-30-2023 Chronic Spondylosis; intervertebral disc disorders; other back problems (4 sources) Sciatica, right side; Translations: [SCIATICA RIGHT SIDE] Onset: 09-17-2019 Episodic Unclassified (1 source) Cold Like Symptoms Onset: 10-08-2023 Unclassified (1 source) Bleeding from stomach Onset: 10-08-2023 Unclassified (2 sources) Outpatient Infusion Onset: 10-25-2023 Unclassified (1 source) Maternal care for other (suspected) abnormality and damage, cardiac anomalies, not applicable or unspecified; Translations: [Maternal care for other (suspected) abnormality and damage, cardiac anomalies, not applicable or unspecified] Onset: 03-19-2024 Unclassified (1 source) Hx C/S Onset: 02-20-2024 Past or Other Problems Problem Classification Problem Date Documented Da te Episodic/Chronic Anal and rectal conditions (4 sources) Stricture of rectum; 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 Comment on above: Performed By: #### C AGNES, 1987-11, HA1C, CBCA, 5196-1, 61878-9, 37827-2, 2131-9, 03860-1, 8014-3, 42496-0 #### [facility] ([id number]) [address], [address] [place] [address] Basophils/100 WBC (Bld) 0.3 % Normal [facility] Comment on above: Performed By: #### C AGNES, 1987-11, HA1C, CBCA, 5196-1, 42987-4, 76107-8, 2131-9, 06793-2, 8014-3, 75949-9 #### [facility] ([id number]) [address], [address] [place] [address] Eosinophils (Bld) [#/Vol] 0.2 10*3/uL Normal 0.0-0.4 [facility] Comment on above: Performed By: #### C AGNES, 1987-11, HA1C, CBCA, 5196-1, 75877-0, 21761-6, 2131-9, 08340-0, 8014-3, 80621-8 #### [facility] ([id number]) [address], [address] [place] [address] Eosinophils/100 WBC (Bld) 2.6 % Normal [facility] Comment on above: Performed By: #### C AGNES, 1987-11, HA1C, CBCA, 5196-1, 08465-5, 29751-5, 2131-9, 77774-0, 8014-3, 99173-4 #### [facility] ([id number]) [address], [address] [place] [address] Erythrocyte distribution width (RBC) [Ratio] 13.3 % Normal 11.5-15.0 [facility] Comment on above: Performed By: #### Clyde ALARCON, 1989-11, HA1C, CBCA, 5196-1, 68757-4, 38995-1, 2132-9, 95524-5, 8014-3, 68881-0 #### [facility] ([id number]) [address], [address] [place] [address] Hematocrit (Bld) [Volume fraction] 40.5 % Normal 35-47 [facility] Comment on above: Performed By: #### C AGNES, 1987-11, HA1C, CBCA, 5196-1, 28810-2, 85898-7, 2132-9, 35688-9, 8014-3, 09805-9 #### [facility] ([id number]) [address], [address] [place] [address] Hemoglobin (Bld) [Mass/Vol] 14.2 g/dL Normal 11.7-15.5 [facility] Comment on above: Performed By: #### Clyde ALARCON, 1989-11, HA1C, CBCA, 5196-1, 76485-3, 21272-6, 2132-9, 45582-2, 8014-3, 67532-5 #### [facility] ([id number]) [address], [address] [place] [address] Lymphocytes (Bld) [#/Vol] 1.3 10*3/uL Normal 1.0-3.5 [facility] Comment on above: Performed By: #### Clyde ALARCON, 1989-11, HA1C, CBCA, 5196-1, 85893-2, 04541-8, 2132-9, 99455-1, 8014-3, 22171-1 #### [facility] ([id number]) [address], [address] [place] [address] Lymphocytes/100 WBC (Bld) 18.2 % Normal [facility] Comment on above: Performed By: #### C AGNES, 1987-11, HA1C, CBCA, 5196-1, 52007-1, 80845-4, 2132-9, 40698-3, 8014-3, 59002-2 #### [facility] ([id number]) [address], [address] [place] [address] MCH (RBC) [Entitic mass] 30.7 pg Normal 27-34 [facility] Comment on above: Performed By: #### C AGNES, 1987-11, HA1C, CBCA, 5196-1, 18852-1, 98126-9, 2131-9, 26620-0, 8014-3, 06294-6 #### [facility] ([id number]) [address], [address] [place] [address] MCHC (RBC) [Mass/Vol] 35.2 g/dL Normal 32-36 [facility] Comment on above: Performed By: #### C AGNES, 1987-11, HA1C, CBCA, 5196-1, 33738-4, 50801-7, 2131-9, 06790-3, 8014-3, 83393-1 #### [facility] ([id number]) [address], [address] [place] [address] MCV (RBC) [Entitic vol] 87 fL Normal 80-100 [facility] Comment on above: Performed By: #### C AGNES, 1987-11, HA1C, CBCA, 5196-1, 11132-1, 62376-0, 213-9, 88872-5, 8014-3, 65223-5 #### [facility] ([id number]) [address], [address] [place] [address] Monocytes (Bld) [#/Vol] 0.4 10*3/uL Normal 0-0.9 [facility] Comment on above: Performed By: #### C AGNES, 1987-11, HA1C, CBCA, 5196-1, 36244-0, 61985-3, 2132-9, 56812-7, 8014-3, 98477-7 #### [facility] ([id number]) [address], [address] [place] [address] Monocytes/100 WBC (Bld) 5.1 % Normal [facility] Comment on above: Performed By: #### C AGNES, 1987-11, HA1C, CBCA, 5196-1, 64333-4, 33498-6, 2132-9, 93491-2, 8014-3, 92983-9 #### [facility] ([id number]) [address], [address] [place] [address] Neutrophils/100 WBC (Bld) 73.8 % Normal [facility] Comment on above: Performed By: #### C AGNES, 1987-11, HA1C, CBCA, 5196-1, 75905-3, 93293-3, 2-9, 02773-1, 8014-3, 68618-5 #### [facility] ([id number]) [address], [address] [place] [address] Platelet mean volume (Bld) [Entitic vol] 9.1 fL Normal 7-12 [facility] Comment on above: Performed By: #### C AGNES, 1987-11, HA1C, CBCA, 5196-1, 23847-2, 85035-9, 2131-9, 59179-8, 8014-3, 29273-4 #### [facility] ([id number]) [address], [address] [place] [address] Platelets (Bld) [#/Vol] 254 10*3/uL Normal 150-450 [facility] Comment on above: Performed By: #### C AGNES, 1987-11, HA1C, CBCA, 5196-1, 90617-3, 91433-6, 2132-9, 32475-0, 8014-3, 40073-8 #### [facility] ([id number]) [address] [facility], [address] [place] [address] RBC COUNT 4.63 X10E12/L Normal 3.80-5.20 [facility] Comment on above: Performed By: #### C AGNES, 1987-11, HA1C, CBCA, 5196-1, 74197-8, 57472-0, 2131-9, 49228-3, 8014-3, 56351-2 #### [facility] ([id number]) [address] [facility], [address] [place] [address] WBC (Bld) [#/Vol] 7.4 10*3/uL Normal 4.0-11.0 [facility] Comment on above: Performed By: #### C AGNES, 1987-11, HA1C, CBCA, 5196-1, 54159-3, 83710-2, 2131-9, 72464-6, 8014-3, 34986-7 #### [facility] ([id number]) [address] [facility], [address] [place] [address] COMPREHENSIVE METABOLIC PANE Jesse 12-11-2023 Albumin [Mass/Vol] 4.3 g/dL Normal 3.2-5.3 [facility] Comment on above: Performed By: #### C AGNES, 1987-11, HA1C, CBCA, 5196-1, 58443-1, 23094-0, 9, 76598-2, 8014-3, 67855-7 #### [facility] ([id number]) [address] [facility], [address] [place] [address] ALP [Catalytic activity/Vol] 48 U/L Normal 39-130 [facility] Comment on above: Performed By: #### C AGNES, 1987-11, HA1C, CBCA, 5196-1, 32075-9, 70849-6, 2131-9, 39648-9, 8014-3, 57215-2 #### [facility] ([id number]) [address], [address] [place] [address] ALT [Catalytic activity/Vol] 13 U/L Normal 0-31 [facility] Comment on above: Performed By: #### C AGNES, 1987-11, HA1C, CBCA, 5196-1, 53888-6, 15654-7, 2132-9, 01729-1, 8014-3, 83485-2 #### [facility] ([id number]) [address], [address] [place] [address] Anion gap [Moles/Vol] 10 mmol/L Normal 5-15 [facility] Comment on above: Performed By: #### C AGNES, 1987-11, HA1C, CBCA, 5196-1, 59142-9, 77162-3, 2-9, 41891-7, 8014-3, 68964-9 #### [facility] ([id number]) [address], [address] [place] [address] AST [Catalytic activity/Vol] 17 U/L Normal 0-41 [facility] Comment on above: Performed By: #### C AGNES, 1987-11, HA1C, CBCA, 5196-1, 51219-5, 52366-3, 2132-9, 80156-9, 8014-3, 25609-0 #### [facility] ([id number]) [address], [address] [place] [address] Bilirubin [Mass/Vol] 0.7 mg/dL Normal 0.3-1.[address] [facility] Comment on above: Performed By: #### C AGNES, 1987-11, HA1C, CBCA, 5196-1, 13762-2, 83163-9, 2132-9, 99104-8, 8014-3, 24926-6 #### [facility] ([id number]) [address], [address] [place] [address] Calcium [Mass/Vol] 9.5 mg/dL Normal 8.5-10.5 [facility] Comment on above: Performed By: #### C MP, 1987-11, HA1C, CBCA, 5196-1, 19399-7, 79165-6, 2131-9, 13197-1, 8014-3, 89943-6 #### [facility] ([id number]) [address], [address] [place] [address] Chloride [Moles/Vol] 104 mmol/L Normal 98-[address] [facility] Comment on above: Performed By: #### C AGNES, 1987-11, HA1C, CBCA, 5196-1, 98736-4, 95384-7, 2131-9, 51031-9, 8014-3, 45756-9 #### [facility] ([id number]) [address], [address] [place] [address] CO2 [Moles/Vol] 23 mmol/L Normal 22-32 [facility] Comment on above: Performed By: #### C AGNES, 1987-11, HA1C, CBCA, 5196-1, 86503-2, 44262-6, 2131-9, 67634-4, 8014-3, 88249-3 #### [facility] ([id number]) [address], [address] [place] [address] Creatinine [Mass/Vol] 0.49 mg/dL Normal 0.40-1.00 [facility] Comment on above: Result Comment: METH OD TRACEABLE TO IDMS STANDARD Performed By: #### C AGNES, 1987-11, HA1C, CBCA, 5196-1, 76444-5, 85731-1, 2131-9, 14776-9, 8014-3, 63068-3 #### [facility] ([id number]) [address], [address] [place] [address] eGFR (CKD-EPI) NON-RACE DEPENDENT >90 Normal >59 [facility] Comment on above: Result Comment: Reported eGFR is based on the CKD-EPI 2020 equation that does not use a race coefficient. Performed By: #### C AGNES, 1987-11, HA1C, CBCA, 5196-1, 18051-4, 15126-3, 2131-9, 88856-1, 8014-3, 33366-6 #### [facility] ([id number]) [address], [address] [place] [address] Glucose [Mass/Vol] 92 mg/dL Normal 65-99 [facility] Comment on above: Performed By: #### C AGNES, 1987-11, HA1C, CBCA, 5196-1, 36220-5, 53545-8, 2131-9, 33121-2, 8014-3, 61225-8 #### [facility] ([id number]) [address], [address] [place] [address] Potassium [Moles/Vol] 4.1 mmol/L Normal 3.5-5.0 [facility] Comment on above: Performed By: #### C AGNES, 1987-11, HA1C, CBCA, 5196-1, 75156-4, 81241-1, 2131-9, 61367-4, 8014-3, 21564-5 #### [facility] ([id number]) [address], [address] [place] [address] Protein [Mass/Vol] 7.5 g/dL Normal 6.0-8.0 [facility] Comment on above: Performed By: #### C AGNES, 1987-11, HA1C, CBCA, 5196-1, 21695-1, 32303-0, 2131-9, 39458-1, 8014-3, 76775-8 #### [facility] ([id number]) [address], [address] [place] [address] Sodium [Moles/Vol] 137 mmol/L Normal 134-146 [facility] Comment on above: Performed By: #### C AGNES, 1987-11, HA1C, CBCA, 5196-1, 16179-0, 18195-7, 2132-9, 61121-5, 8014-3, 09263-1 #### [facility] ([id number]) [address] [facility], [address] [place] [address] Urea nitrogen [Mass/Vol] 6 mg/dL Normal 5-23 [facility] Comment on above: Performed By: #### C AGNES, 1987-11, HA1C, CBCA, 5196-1, 83947-1, 19741-9, 2132-9, 38893-6, 8014-3, 16333-5 #### [facility] ([id number]) [address] [facility], [address] [place] [address] CRP [Mass/Vol]on 12-11-2023 C REACTIVE PROTEIN 0.5 mg/dL Normal 0.000-0.744 [facility] Comment on above: Performed By: #### C AGNES, 1987-11, HA1C, CBCA, 5196-1, 54102-5, 09473-3, 2132-9, 76959-2, 8014-3, 02529-8 #### [facility] ([id number]) [address] [facility], [address] [place] [address] HBV surface Ag IA Qlon 12-10 HEPATITIS B SURF AG Negative Normal NEG [facility] Comment on above: Performed By: #### C AGNES, 1987-11, HA1C, CBCA, 5196-1, 69917-5, 52692-5, 2132-9, 17855-5, 8014-3, 07086-9 #### [facility] ([id number]) [address] [facility], [address] [place] [address] HCV Ab IA Qlon 12-11-2023 ANTI HCV W/PCR REFLX Non-Reactive Normal NRCT Pr [facility] Comment on above: Result Comment: If recent infection suspected, recommend repeat testing (>2 months). Caarcu-gf-rwkyge ratio is <0.80. Performed By: #### C AGNES, 1987-11, HA1C, CBCA, 5196-1, 74401-6, 40781-2, 2-9, 69006-8, 8014-3, 09921-0 #### [facility] ([id number]) [address] [facility], [address] [place] [address] HGB A1C (GLYCO-HGB)on 2023 Glucose [Mass/Vol] 103 mg/dL Normal [facility] Comment on above: Performed By: #### C AGNES, 1987-11, HA1C, CBCA, 5196-1, 45814-7, 48019-6, 2131-9, 97156-8, 8014-3, 54374-0 #### [facility] ([id number]) [address] [facility], [address] [place] [address] HbA1c (Bld) [Mass fraction] 5.2 % Normal 4.4-5.6 [facility] Comment on above: Result Comment: NOTE ADA Guidelines Result HgbA1c Normal : less than 5.7 % Prediabetes : 5.7 % to 6.4 % Diabetes : > 6.4 % Use with caution in patients with abnormal hemoglobin variants as the half-life of red blood cells and in vivo glycation rates are affected. Performed By: #### C AGNES, 1987-11, HA1C, CBCA, 5196-1, 82910-7, 54770-6, 2131-9, 67518-7, 8014-3, 08223-8 #### [facility] ([id number]) [address] [facility], [address] [place] [address] HIV 1+2 Ab+HIV1 p24 Ag IA Ql on 12-11-2023 HIV 1 and 2 Ab/Ag Screen Non-Reactive Normal NRCT [facility] Comment on above: Result Comment: This [...] #### C AGNES, 1987-11, HA1C, CBCA, 5196-1, 43529-0, 89513-8, 2131-9, 75691-3, 8014-3, 01726-1 #### [facility] ([id number]) [address] [place] [address], [address] [place] [address] Rubella virus IgG Qn (S)on 0 12-11-2023 RUBELLA IgG 30 IU/mL Normal [facility] Comment on above: Result Comment: Interpretation-------- <8 NEGATIVE-considered Not Immune 8-9 EQUIVOCAL-consider retesting with new specimen >9 POSITIVE-considered Immune Performed By: #### Clyde ALARCON, 1989-11, HA1C, CBCA, 5196-1, 49165-7, 09138-2, 9, 33992-4, 8014-3, 23236-4 #### [facility] ([id number]) [address] [place] [address], [address] [place] [address] T. pallidum IgG+IgM IA Ql (S )on 12-11-2023 Syphilis Total <0.2 Normal 0.0-0.8 [facility] Comment on above: Result Comment: NON REACTIVE No serologic evidence of infection to Treponema pallidum (syphilis). Repeat testing may be considered in patients with suspected acute or primary syphilis in 2 to 4 weeks. Performed By: ###Em Tang MP, 1989-11, HA1C, CBCA, 5196-1, 44931-3, 15941-6, 9, 70658-8, 8014-3, 62018-4 #### [facility] ([id number]) [address] [place] [address], [address] [place] [address] VITAMIN B12on 12-11-2023 Cobalamin (Vitamin B12) [Mass/Vol] 142 pg/mL Low 180-914 [facility] Comment on above: Performed By: #### C AGNES, 1989-11, HA1C, CBCA, 5196-1, 14610-0, 91581-8, 2132-03, 96678-8, 8014-3, 73651-4 #### [facility] ([id number]) [address] [place] [address], [address] [place] [address] Vitamin D+Metabolites [Mass/ Vol]on 12-11-2023 VITAMIN D 25 HYD TOT 21.8 ng/mL Low 30-[address] [facility] Comment on above: Result Comment: Vitamin D status 25 [place] Vitamin D Deficiency <20 ng/mL Insufficiency 20-29 ng/mL Sufficiency 30-100 ng/mL Toxicity >100 ng/mL NOTE: A pediatric reference range has not been established by the paste up copy camera operator of this kit. The [place] [employer] recommends a Vitamin D level of = or >20ng/mL in infants and children. Performed By: #### C AGNES, 1989-11, HA1C, CBCA, 5196-1, 55514-6, 75354-6, 9, 99182-8, 8014-3, 09110-1 #### [facility] ([id number]) [address] [place] [address], [address] [place] [address] SARS/FLU A+B/RSV by NAAT/Mol ecularon 10-08-2023 SARS/FLU A+B/RSV by NAAT/Molecular FLU A [...] operators who are performing tests using either [employer] or [employer] systems and is limited to laboratories that [...] repeat. Fact Sheet for Healthcare Providers: https://www.fda.gov/media /055019/download Fact Sheet for Patients: https://www.fda.gov/media /097405/download Normal [facility] Comment on above: Performed By: #### C OVFLR #### [facility] ([id number]) [address] [place] [address], [place] [address] Consultation Noteon 12-18-19 Consultation Note [id number] Normal [facility] Ambulatory Patient Education on 06-04-2018 Ambulatory Patient Education Patient Education MaterialsName: Zainab Maldonado Current Date: 06/04/2018 11:43:12 [place] 1995 following sheet(s) are the Patient Education Leaflets for Zainab Maldonado Normal [facility] Gastroenterology Office/Clin ic Noteon 06-04-2018 Gastroenterology Office/Clinic [...] her being referred to Dr. Bowers at [facility] in [place]. She states that she had a colonoscopy [...] Last done at the time of in 2016 Dermatology: None. No family history of skin cancer Nutrition: No dietary restrictions Anemia: Reports that she was told that she has anemia Imaging history: CT done in February 2018 Endoscopy history: Colonoscopy done on 04/17/2018 at [facility] Constitutional: 45 pound weight loss [...] she was placed on steroids at the [facility] physician. She states that she is [...] available. No qualifying data available.Electronically signed by _Trang Harrison MD 06/05/18 15:52 EST[facility] records: Colonoscopy 04/17/2018 Crohn's disease involving the [...] _Trang Harrison MD 06/05/18 15:58 EST [facility] Vital Signs Date Time Vital Sign Value Performing Clinician Daxi sanchez 10-25-2023 11:28-0400 Body temperature 99.1 [degF] [facility] 2 [facility] 10-25-2023 11:28-0400 Diastolic blood pressure 62 mm[Hg] [facility] 2 [facility] 10-25-2023 11:28-0400 Heart rate 74 /min [facility] 2 [facility] 10-25-2023 11:28-0400 Respiratory rate 18 /min [facility] 2 [facility] 10-25-2023 11:28-0400 Systolic blood pressure 97 mm[Hg] [facility] 2 [facility] 10-25-2023 08:54-0400 Body mass index (BMI) [Ratio] 25.32 kg/m2 [facility] 2 [facility] 10-25-2023 08:54-0400 Body weight 60.78 kg [facility] [place] [facility] 08-30-2023 11:44-0500 Body temperature 98.2 [degF] [facility] 1 [facility] 08-30-2023 11:44-0500 Diastolic blood pressure 68 mm[Hg] [facility] 1 [facility] 08-30-2023 11:44-0500 Heart rate 73 /min [facility] 1 [facility] 08-30-2023 11:44-0500 SaO2% (BldA) [Mass fraction] 98 % [facility] 1 [facility] 08-30-2023 11:44-0500 Systolic blood pressure 99 mm[Hg] [facility] 1 [facility] 08-30-2023 09:00-0500 Body mass index (BMI) [Ratio] 26.38 kg/m2 [facility] 1 [facility] 08-30-2023 09:00-0500 Body weight 63.32 kg [facility] 1 [facility] Encounters Encounter Date Encounter Type Care Provider Facility Start: 03-19-2024 End: 03-19-2024 ambulatory YADIRA CHAU [facility] Start: 03-05-2024 End: 03-05-2024 ambulatory CARLOS ANDREWS Not Available Start: 02-29-2024 End: 02-29-2024 ambulatory SURESH DIAZ [facility] Start: 02-20-2024 End: 02-20-2024 ambulatory SHERRY R AXEL [facility] Start: 02-14-2024 End: 02-14-2024 ambulatory PREMA E [facility] Start: 02-06-2024 End: 02-06-2024 ambulatory SHERRY AXEL Not Available Start: 01-09-2024 End: 01-09-2024 ambulatory SHERRY AXEL Not Available Start: 12-20-2023 End: 12-20-2023 ambulatory PREMA [facility] Start: 12-11-2023 End: 12-12-2023 ambulatory SHERRY R AXEL [facility] Start: 12-08-2023 End: 12-08-2023 ambulatory SHERRY AXEL Not Available Start: 11-30-2023 End: 11-30-2023 ambulatory SURESH Latham JOE [facility] Start: 10-25-2023 End: 10-25-2023 ambulatory [facility] Infusion Chair 2 [facility] Comment on above: Crohn's disease of s mall and large intestines with complication ([facility]) (Primary Dx) Start: 10-24-2023 Telephone encounter Amanda Cole RN [facility] Start: 10-08-2023 End: 10-08-2023 Emergency department patient visit PREMA ABRAHAM [facility] Start: 08-30-2023 End: 08-30-2023 [facility] 1 [facility] Comment on above: Crohn's disease of s mall and large intestines with complication ([facility]) (Primary Dx) Start: 09-17-2019 End: 09-18-2019 Patient encounter procedure PREMA ABRAHAM Facility:[facility] Start: 06-04-2018 End: 06-05-2018 Patient encounter procedure Trang Harrison Facility:[facility] Procedures Date Procedure Procedure Detail Performing Clinician Start: 11-30-2023 Follow-up visit Follow-up SURESH Noa JOE Start: 11-11-2021 Microscopic observat ion [Identifier] in Cervix by Cyto stain [facility] 1 Start: 03-04-2021 Adult depression scr eening assessment [facility] 1 Start: 04-14-2020 H/O: colostomy Colostomy status [facility] 1 Start: 12-03-2019 H/O: ileostomy Ileostomy status [facility] 1 Plan of Treatment Date Care Activity Detail Author Start: 11-11-2024 Screening for malign ant neoplasm of cervix Pap Smear [facility] Start: 10-24-2024 Adult BMI Screening Adult BMI Screen ing [facility] Start: 10-07-2024 Tobacco Screening Tobacco Screening [facility] Start: 08-30-2024 Adult BMI Screening Adult BMI Screen ing [facility] Start: 05-10-2024 Tobacco Screening Tobacco Screening [facility] Start: 03-31-2024 Influenza vaccination Influenza Vacc ine [facility] Start: 12-20-2023 End: 12-20-2023 ambulatory 12/20/2023 9:00 AM EDT Infusion [facility] [address] [place] [address] [address] [place] [phone] [facility] Start: 11-30-2023 End: 11-30-2023 Patient encounter procedure 11/30/2023 9:30 AM EDT Office Visit [facility] [address] [place] [address] [address] [place] [phone] Suresh Diaz MD [address] [facility] [address] [place] [address] [facility] Start: 10-25-2023 End: 10-25-2023 ambulatory 10/25/2023 9:00 AM EDT Infusion [facility] [address] [place] [address] [address] [place] [phone] [facility] Start: 03-31-2023 Influenza vaccination Influenza Vacc ine [facility] Start: 03-04-2022 Depression Screening Depression Scre ening [facility] Start: 2012 DTaP,Tdap and Td Vaccines (1 - Tdap) DTaP,Tdap and Td Vaccines (1 - Tdap) [facility] End: 10-24-2024 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[employer] [facility] Lab Routine Crohn's disease of small and large intestines with complication ([facility]) 1 Occurrences starting 10/25/2023 until 10/24/2024 [facility] Work Phone: Comment on above: 1 Occurrences starti ng 10/25/2023 until 10/24/2024 Payers Date Payer Category Payer Medicaid ANTH MEDICAID [facility] MEDICAID [id number] 2022-Present [address] [place] [address] [id number] 2022 Medicaid [id number] 1993 Unknown [id number] [id number] 1993 Unknown [id number] 2.16.840.1.872208.3.579.2.593 1993 Unknown [id number] 2.16.840.1.474609.3.579.2.1286 1993 Unknown [id number] 2.16.840.1.089015.3.579.2.1286 1993 Unknown [id number] 2.16.840.1.159502.3.579.2.1286 1993 Unknown [id number] 2.16.840.1.807411.3.579.2.1259 1993 Unknown [id number] 2.16.840.1.489941.3.579.2.1259 1993 Unknown [id number] 2.16.840.1.934499.3.579.2.1259 1993 Unknown [id number] 2.16.840.1.718531.3.579.2.1259 1993 Unknown [id number] 2.16.840.1.950566.3.579.2.1286 1993 Unknown [id number] 2.16.840.1.346148.3.579.2.1286 1993 Unknown [id number] 2.16.840.1.367105.3.579.2.1286 1993 Unknown [id number] 2.16.840.1.979852.3.579.2.1286 1993 Unknown [id number] 2.16.840.1.546813.3.579.2.1286 1993 Unknown [id number] 2.16.840.1.377151.3.579.2.1286 1993 Unknown [id number] 2.16.840.1.627696.3.579.2.1286 1993 Unknown [id number] 2.16.840.1.846959.3.579.2.1286 1993 Unknown [id number] 2.16.840.1.422283.3.579.2.1286 1959 Self-pay [id number] 07-31-1799 Self-pay Social History Date Type Detail Facility Start: 07-05-2022 Tobacco smoking stat [facility] Never smoked tobacco [facility] Start: 07-05-2022 Tobacco use and exposure Smoke less tobacco non-user [facility] Start: 05-10-2023 End: 10-08-2023 Alcohol intake Current drinker of alcohol (finding) [facility] Start: 08-10-2020 End: 05-10-2023 Alcohol intake [facility] Start: 08-06-2020 End: 08-10-2020 Social connection and isolation panel [facility] Do you belong to any clubs or organizations such as voodoo groups, unions, fraternal or athletic groups, or school groups? No [facility] Are you now , , , , never or living with a partner? [facility] How often to you hav e a drink containing alcohol? 2-4 times a month [facility] Average Number of Drinks Not on file [facility] Do you feel stress - tense, restless, nervous, or anxious, or unable to sleep at night because your mind is troubled all the time - these days [OSQ] Only a little [employer] [facility] Start: 12-22-2021 Alcohol Comment socially [employer] [facility] Start: 1995 Sex Assigned At Not on file [facility] [employer] [facility] Goals Date Patient Goal Desired Activity /State Personal health goal Comment on above: Formatting of this n ote might be different from the original. Evaluation of progress towards goal: Patient plans to return home with [facility] History of Present illness Narrative 10-25-2023 Paddy Vargas RN - 10/25/2023 9:00 AM EDShraddha Osorio RN - 10/25/2023 9:00 AM EDYoselyn Vargas RN - 10/25/2023 9:00 AM EDT Note Date & Type Note Facility 10-25-2023 History of Presen t illness Narrative 0900 Patient here for Avsola infusion. Patient denies any recent infections, open wounds, recent/future surgery, or insurance changes . IV started with 22g needle to right AC by paddy gill x 1 attempt . Patient tolerated well. Avsola x 2 vials, lot# [id number], exp date Avsola x 1 vial, lot# [id number], exp date 02/27/2027 Time out performed with [...] of info given. [facility] 10-24-2023 Telephone Encounter - Amanda Cole RN - 10/24/2023 1:26 PM EDTTelephone Encounter - Jayda Teixeira RN - 10/24/2023 1:26 PM EDT Note Date & Type Note Facility 10-24-2023 Miscellaneous Notes Formattin g of this note might be different from the original. Patient currently receiving Avsola 5mg/kg every 8 weeks. 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 Prior auth request forms completed for Remicade 5mg/kg to be given every 56 days, faxed to [phone] Remicade approved for 5mg/kg (400mg) for 7 visits from 10/25/2023-10/23/2024. Auth # [id number] Referral placed. Therapy plan updated. Flowsheet updated. documented in this encounter [facility] Telephone encounter Note 10-24-2023 Telephone Encounter - Amanda Cole RN - 10/24/2023 1:26 PM EDT Note Date & Type Note Facility 10-24-2023 Telephone encounter Note Patient currently receiving Avsola 5mg/kg every 8 weeks. 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 Prior auth request forms completed for Remicade 5mg/kg to be given every 56 days, faxed to [phone] [facility] Telephone encounter Note 10-24-2023 Telephone Encounter - Jayda Teixeira RN - 10/24/2023 1:26 PM EDT Note Date & Type Note Facility 10-24-2023 Telephone encount er Note Remicade approved for 5mg/kg (400mg) for 7 visits from 10/25/2023-10/23/2024. Auth # [id number] Referral placed. Therapy plan updated. Flowsheet updated. [facility] History of Present illness Narrative 08-30-2023 Juan [...] tolerated infusion well. documented in this encounter [facility] Evaluation note Note Date & Type Note Facility Evaluation note Diagnosis Crohn's disease of small and large intestines with complication (CMS-HCC)- Primary documented in this encounter [facility] Evaluation note Note Date & Type Note Facility Evaluation note Diagnosis Crohn's disease of small and large intestines with complication ([facility])- Primary documented in this encounter [facility] Instructions Note Date & Type Note Facility Instructions Not on filedocumented in this en counter [facility] Instructions Note Date & Type Note Facility Instructions Not on filedocumented in this en counter [facility] Instructions Note Date & Type Note Facility Instructions Not on filedocumented in this en counter [facility] Summary Purpose Family History No Family [...] section and content) DATE CREATED AUTHOR 07/08/2018 [facility] DATE CREATED AUTHOR AUTHOR'S ORGANIZ ATION 09/20/2019 [facility] [place] [facility] DATE CREATED AUTHOR AUTHOR'S ORGANIZ ATION 12/18/2019 Rashawn Butcher [facility] DATE CREATED AUTHOR AUTHOR'S ORGANIZ ATION 12/12/2023 [facility] DATE CREATED AUTHOR AUTHOR'S ORGANIZ ATION 02/17/2024 [facility] DATE CREATED AUTHOR AUTHOR'S ORGANIZ ATION 03/07/2024 [facility] DATE CREATED AUTHOR AUTHOR'S ORGANIZ ATION 03/20/2024 [facility] Reason for Visit (unrecogniz ed section and content) Reason Comments Outpatient Infusion [facility] Specialty Diagnoses / Procedures Referred By Theodore kohli Referred To Contact Gastroenterology Diagnoses Crohn's disease of both small and large intestine with unspecified complications Renflexis 400mg q8 weeks, 7 visits, 02.02.23 - 02.02.24, HK/CF, Crohn's Procedures INJECTION, INFLIXIMAB-AXXQ, BIOSIMILAR, (AVSOLA), 10 MG INFUSION Prema Abraham MD [address] [place] [id number] [phone] Referral ID Status Reason Start Date Expiration Date V isits Requested Visits Authorized [id number] Authorized 02/02/2023 02/02/2024 7 7 Reason Comments Outpatient Infusion [facility] Care Teams (unrecognized sec tion and content) Distribution Agent Relationship Specialty Start Date End Date Prema Abraham MD [address] [place], [place] [id number] PCP - General Family Medicine 12/17/19 Distribution Agent Relationship Specialty Start Date End Date Prema Abraham MD [address] [place] [id number] PCP - General Family Medicine 10/08/23 Distribution Agent Relationship Specialty Start Date End Date Prema Abraham MD [address] [place], [place] [phone] PCP - General Family Medicine 10/08/23 FOR [...] BE BASED ON THE PRIMARY CLINICAL RECORDS. [employer] [facility]. provides no warranty or guarantee of the accuracy or completeness of information in this document.
[2024-03-27 10:45] LABS: Basophils Percent Auto 0.2 % (0.2-2.0); Eosinophils Absolute Auto 0.1 10^3/uL (0.0-0.7); Eosinophils Percent Auto 1.2 % (0.9-7.0); Hematocrit 35.4 % (36.0-48.0); Hemoglobin 11.8 g/dL (12.0-16.0); Immature Granulocytes Abs Auto 0.02 10^3/uL (0.00-0.03); Immature Granulocytes Pct Auto 0.2 % (0.0-0.5); Lymphocytes Percent Auto 10.4 % (20.5-60.0); Mean Corpuscular HGB Conc 33.3 g/dL (29.9-35.2); Mean Corpuscular Hemoglobin 31.2 pg (26.7-34.0); Mean Corpuscular Volume 93.7 fL (81.0-99.0); Mean Platelet Volume 9.3 fL (9.5-13.5); Monocytes Absolute Auto 0.4 10^3/uL (0.3-0.8); Monocytes Percent Auto 3.5 % (1.7-12.0); Neutrophils Absolute Auto 8.5 10^3/uL (1.4-6.5); Neutrophils Percent Auto 84.5 % (43.0-75.0); Platelet Count 260 10^3/uL (150-450); Red Blood Count 3.78 10^6/uL (4.20-5.40); Red Cell Distribution Width 12.9 % (11.0-15.0)
[2024-03-27 11:22] LABS: Glucose 1 Hour 98 mg/dL (<130)
== END 2024-03-27 09:32 | disposition home or self-care (01) ==
LOC: LAB 09:31
PROVIDERS: PCP Family Medicine; Visit Provider Obstetrics & Gynecology
DX: Z13.1 Encounter for screening for diabetes mellitus (principal)
CPT/HCPCS: 36415; 82950; 85025

== ENCOUNTER 2024-05-21 07:03 | Outpatient (OUT) | payer MEDICAID, SELFPAY ==
--- OUTSIDE RECORDS SUMMARY | 2024-05-21 07:06 | XMS_ITS | CCD ---
Author Organization [facility] Care Team Providers Care Shotblast Equipment Operator Name Role Phone Trang Harrison Unavailable Unavailable Prema Abraham Unavailable Unavaila PREMA Mahan Admitting Unavailable PREMA ABRAHAM Attending Unavailable PREMA ABRAHAM Primary Care Unavailable ALLISON TOWNSEND V Consulting Unavailable PREMA ABRAHAM Consulting Unavailable Prema Abraham MD Primary Care Provider [phone] Prema Abraham MD Primary Care Provider PREMA ABRAHAM Primary Care Unavailable SHERRY HORAN Referring Unavailable PREMA ABRAHAM Referring Unavailable PREMA ABRAHAM Primary Care Unavailable PREMA ABRAHAM Referring Unavailable PREMA ABRAHAM Primary Care Unavailable SURESH DIAZ Referring Unavailable Unavailable Primary Care Provider UnavailPrema Sheriff MD Primary Care Provider [phone] PREMA ABRAHAM Referring Unavailable PREMA ABRAHAM Primary Care Unavailable SURESH DIAZ Attending Unavailable PREMA ABRAHAM Referring Unavailable PREMA ABRAHAM Primary Care Unavailable PREMA ABRAHAM Referring Unavailable SHERRY HORAN Referring Unavailable DEVYN ROMAN Attending Unavailable JANNA MACDONALD Referring Unavailab SURESH Garces Attending Unavailable PREMA ABRAHAM Primary Care Unavailable YADIRA CHAU Attending Unavaila ble DEVYN ROMAN Referring Unavailable PREMA ABRAHAM Primary Care Unavailable YADIRA CHAU Referring Unavaila ble PREMA ABRAHAM Primary Care Unavailable SHERRY HORAN Referring Unavailable PREMA ABRAHAM Primary Care Unavailable DEVYN ROMAN Attending Unavailable ANGEL KAUFMAN Referring Unavailable PREMA ABRAHAM Primary Care Unavailable SHERRY HORAN R Referring Unavailable PREMA ABRAHAM Primary Care Unavailable AUNG, SHERRY R Referring Unavailable ABRAHAM, PREMA E Primary Care Unavailable DEVYN ROMAN Attending Unavailable AUNG, SHERRY R Referring Unavailable ABRAHAM, PREMA E Primary Care Unavailable AUNG, SHERRY R Referring Unavailable ABRAHAM, PREMA E Primary Care Unavailable ABRAHAM, PREMA E Referring Unavailable ABRAHAM, PREMA E Primary Care Unavailable ARTPORTIA Referring Unavailable ABRAHAM, PREMA E Primary Care Unavailable ABRAHAM, PREMA E Referring Unavailable ABRAHAM, PREMA E Primary Care Unavailable AUNG, SHERRY Attending Unavailable AUNG, SHERRY Attending Unavailable SAYRA ANDREWS Attending Unavailable AUNG, SHERRY Attending Unavailable SAYRA ANDREWS Attending Unavailable AUNG, SHERRY Attending Unavailable Medications Current Medications Medication Drug [...] 10/08/2023 Active cholecalciferol 0.025 mg chewable tablet (11 sources) Vitamin D cholecalciferol, vitamin D3, 25 mcg (1,000 unit) tablet,chewable Chew and swallow daily. Active folic acid 1 mg oral tablet (2 sources) Start: 04-01-2024 folic acid (FOLVITE) 1 mg tablet Take 1 tablet (1,000 mcg total) by mouth. 04/01/2024 Active inFLIXimab-axxq 100 mg injection (13 sources) Tumor Necrosis Factor Leo Start: 12-06-2020 inFLIXimab-axxq (Avsola) 100 MG injection Infuse 5 mg/kg into a venous catheter every 2 months 12/06/2020 Active inFLIXimab-axxq (AVSOLA) 100 mg injection Infuse 5 mg/kg into a venous catheter every 60 (sixty) days. Active inFLIXimab-abda (RENFLEXIS) 100 mg injection Infuse 5 mg/kg into a venous catheter once. 0 Active ondansetron 4 mg disintegrating oral tablet (2 sources) Serotonin-3 Receptor Antagonist Start: 10-08-2023 take 1 tablet by mouth every eight hours as needed for nausea ondansetron ODT (ZOFRAN ODT) 4 mg disintegrating tablet Dissolve 1 tablet (4 mg total) on tongue every 8 (eight) hours as needed for nausea for up to 10 doses. 10 tablet 0 10/08/2023 Active Vit-Fe Fumarate-FA (GOODSENSE VITAMINS PO) (6 sources) Start: 11-16-2023 take 1 dose by mouth once daily Vit-Fe Fumarate-FA (GOODSENSE VITAMINS PO) 1 each Daily 11/16/2023 Active vit37/iron/folic acid (PRENATA ORAL) (6 sources) vit37/iron/folic acid (PRENATA ORAL) Take by mouth daily. Active vit37/i diana/folic acid (PRENATA ORAL) Take by mouth daily. 0 Active pyridoxine hydrochloride 25 mg oral tablet (2 sources) Start: 04-03-2024 vitamin B-6 25 MG tablet Take 1 tablet (25 mg total) by mouth. 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] Onset: 03-19-2024 05-17-2024 Chronic Genitourinary congenital anomalies (6 sources) Congenital hydronephrosis; Translations: [Congenital hydronephrosis] Onset: 12-03-2019 12-03-2019 Chronic Menstrual disorders (1 source) Irregular menstruation, unspecified; Translations: [Irregular menstruation, unspecified] Onset: 12-11-2023 Chronic Nutritional deficiencies (7 sources) Deficiency of macronutrients; Translations: [Unspecified severe protein-calorie malnutrition] Onset: 12-03-2019 Resolved: 04-14-2020 04-14-2020 Chronic Nutritional deficiencies (1 source) Deficiency of other specified B group vitamins; Translations: [Deficiency of other specified B group vitamins] Onset: 02-29-2024 Episodic Other complications of ; puerperium affecting management of mother (2 sources) 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 05-17-2024 Episodic Other complications of (6 sources) growth restriction; Translations: [Maternal care for other known or suspected poor growth, unspecified trimester, not applicable or unspecified] 05-15-2024 Episodic Other complications of (3 sources) Poor growth affecting management; Translations: [Maternal care for other known or suspected poor growth, third trimester, not applicable or unspecified] Onset: 04-17-2024 04-17-2024 Episodic Other complications of (1 source) Diseases of the digestive system complicating , third trimester; Translations: [Diseases of the digestive system complicating , third trimester] Onset: 04-30-2024 Episodic Other complications of (1 source) Abnormal ultrasonic finding on screening of mother; Translations: [Abnormal ultrasonic finding on screening of mother] Onset: 03-28-2024 Episodic Other complications of (1 source) Diseases of the digestive system complicating , second trimester; Translations: [Diseases of the digestive system complicating , second trimester] Onset: 03-28-2024 Episodic Other complications of (1 source) Maternal care for other known or suspected poor growth, unspecified trimester, not applicable or unspecified; Translations: [Maternal care for other known or suspected poor growth, unspecified trimester, not applicable or unspecified] Onset: 03-28-2024 Episodic Other complications of (1 source) Supervision of high risk , unspecified, unspecified trimester; Translations: [Supervision of high risk , unspecified, unspecified trimester] Onset: 02-20-2024 Episodic Other and delivery including normal (4 sources) Third trimester ; Translations: [Encounter for supervision of normal , unspecified, third trimester] 05-02-2024 Episodic Other screening for suspected conditions (not mental disorders or infectious disease) (4 sources) Encounter for other screening follow-up; Translations: [Encounter for other specified screening] Onset: 02-20-2024 Episodic Previous (1 source) Maternal care for unspecified type scar from previous delivery; Translations: [Maternal care for unspecified type scar from previous delivery] Onset: 02-20-2024 Episodic Regional enteritis and ulcerative colitis (20 sources) Crohn's disease of small AND large intestines; Translations: [Crohn's disease of both small and large intestine with unspecified complications] Onset: 12-03-2019 08-30-2023 Chronic Residual codes; unclassified (2 sources) Gestation period, 30 weeks; Translations: [30 weeks gestation of ] 05-02-2024 Episodic Residual codes; unclassified (2 sources) Gestation period, 32 weeks; Translations: [32 weeks gestation of ] 05-16-2024 Episodic Spondylosis; intervertebral disc disorders; other back problems [...] Da te Episodic/Chronic Anal and rectal conditions (7 sources) Stricture of rectum; 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] Onset: 04-14-2020 04-14-2020 Episodic Influenza (1 source) Influenza due to other identified influenza virus with other respiratory manifestations; Translations: [Influenza due to other identified influenza virus with other respiratory manifestations] Onset: 10-08-2023 Episodic Mood disorders (6 sources) Mood disorders Onset: 03-04-2021 03-04-2021 Open wounds of head; neck; and trunk (6 sources) Finding of sacral region; Translations: [Unspecified open wound of lower back and pelvis without penetration into retroperitoneum, initial encounter] Onset: 10-30-2019 10-30-2019 Episodic Other gastrointestinal disorders (6 sources) Abdominal wall fistula; 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] Onset: 10-23-2019 10-23-2019 Episodic Other skin disorders (1 source) Skin problem Onset: 10-08-2023 Episodic Ovarian cyst (6 sources) Cyst of right ovary; Translations: [Unspecified ovarian cyst, right side] Onset: 11-11-2021 11-11-2021 Episodic Results Test Name Value Interpretation Reference Range Facility Urinalysis macro (dipstick) panel (U)on 05-16-2024 Bilirubin, UA Negative Negative - 4(70) +++ mg/dL [facility] Blood, UA Positive Negative - 50 Kal/mcL [facility] Comment on above: trace-intact Clarity, UA Clear [facility] Color, UA Yellow [facility] Glucose, UA Negative Negative - 1999(110) ++++ mg/dL [facility] Interpretation and review of laboratory results Abnormal [facility] Ketones, UA Negative Negative - 160(16) ++++ mg/dL [facility] Leukocytes, UA Negative Negative - 500+++ Sandra/mcL [facility] Nitrite, UA Negative Negative - Positive [facility] pH, UA 6 5 - 9 [facility] Protein, UA Negative Negative - 2000(20) ++++ mg/dL [facility] Spec Grav, UA 1.025 1 - 1.03 [facility] Urobilinogen, UA 0.2 0.2 - 12 mg/dL [facility] No Panel Informationon 05-15 Patient Name: Kishor Maldonado Patient : 1995 NST Objective Findings: Variability: Moderate Decelerations: None Accelerations: Yes Acoustic Stimulator: No Baseline: 130 BPM Uterine Irritability: Yes Contractions: Not present Comments: Uterine irritability noted, intercourse this morning. [facility] instructions/handout and labor precautions reviewed. NST Interpretation: Nonstress Test Interpretation: Reactive (Devyn Roman MD) NST performed by: Aislinn Richardson RN 05/15/2024 4:30 PM [facility] stim IFN-g p venkat (Bld)on 03-29-2024 Mitogen minus Nil Result 1.22 IU/mL Normal [facility] Comment on above: Performed By: #### C AGNES, 1989-11, HA1C, CBCA, 5196-1, 21316-4, 64807-5, 2132-9, 93486-2, 8014-3, 59582-9 #### [facility] ([id number]) [address] [place] [address], [address] [place] [address] Nil Result 0.02 IU/mL Normal [facility] Comment on above: Result Comment: NOTE Test Performed by: [facility] [address] [place] [address] Hi Lo Driver: Donnie Sanon Ph.D.; CLIA# [id number] Performed By: #### C AGNES, 1989-11, HA1C, CBCA, 5196-1, 63945-4, 18871-5, 2-9, 01910-2, 8014-3, 45743-0 #### [facility] ([id number]) [address] [facility] [facility] [address], [address] [place] [address] QuantiFERON-Tb Gold Plus Result Negative Normal Negative [facility] Comment on above: Result Comment: NOTE No interferon-gamma response to M. tuberculosis antigens was detected. Latent infection with M. tuberculosis is unlikely. A single negative result does not exclude infection with M. tuberculosis. In patients at high risk for M.tuberculosis infection, a second test should be considered in accordance with the 2017 ATS/IDSA/CDC Clinical Practice Guidelines for Diagnosis of Tuberculosis in Adults and Children [Jenny GOMEZ et. al. Clin. Infect. Dis. 2017;64(2):111-115]. The reference range for the 'TB1 Ag minus Nil Result' and 'TB2 Ag minus Nil Result' is an Interferon-gamma level <0.35 IU/mL. Performed By: #### C AGNES, 1989-11, HA1C, CBCA, 5196-1, 37908-6, 27075-8, 2132-9, 54438-0, 8014-3, 75056-4 #### [facility] ([id number]) [address] [place] [address], [address] [place] [address] TB1 Ag minus Nil Result NEG 0.01 Normal [facility] Comment on above: Performed By: #### C AGNES, 1989-11, HA1C, CBCA, 5196-1, 94330-2, 23873-4, 2132-9, 57733-7, 8014-3, 85558-3 #### [facility] ([id number]) [address] [place] [address], [address] [place] [address] TB2 Ag minus Nil Result NEG 0.01 Normal [facility] Comment on above: Performed By: #### C AGNES, 1989-11, HA1C, CBCA, 5196-1, 95123-6, 56252-3, 2132-9, 61372-4, 8014-3, 09852-7 #### [facility] ([id number]) [address] [place] [address], [address] [place] [address] CBC AND AUTO DIFFon -13-20 24 ABSOLUTE BASOPHIL 0.0 X10E9/L Normal 0.0-0.2 [facility] Comment on above: Performed By: #### C AGNES, 1989-11, HA1C, CBCA, 5196-1, 67715-1, 13463-8, 2132-9, 09486-9, 8014-3, 03792-2 #### [facility] ([id number]) [address] [place] [address], [address] [place] [address] ABSOLUTE NEUTROPHIL 5.5 X10E9/L Normal 1.5-6.6 [facility] Comment on above: Performed By: #### C AGNES, 1989-11, HA1C, CBCA, 5196-1, 90566-3, 92280-6, 2132-9, 12134-8, 8014-3, 79871-1 #### [facility] ([id number]) [address], [address] [place] [address] Basophils/100 WBC (Bld) 0.3 % Normal [facility] Comment on above: Performed By: #### C AGNES, 1989-11, HA1C, CBCA, 5196-1, 23359-0, 03997-3, 2-9, 11927-9, 8014-3, 41027-5 #### [facility] ([id number]) [address], [address] [place] [address] Eosinophils (Bld) [#/Vol] 0.2 10*3/uL Normal 0.0-0.4 [facility] Comment on above: Performed By: #### C AGNES, 1989-11, HA1C, CBCA, 5196-1, 71292-9, 03364-9, 2-9, 75740-1, 8014-3, 13772-7 #### [facility] ([id number]) [address], [address] [place] [address] Eosinophils/100 WBC (Bld) 2.6 % Normal [facility] Comment on above: Performed By: #### C AGNES, 1989-11, HA1C, CBCA, 5196-1, 34949-8, 49872-7, 2132-9, 95358-3, 8014-3, 83498-3 #### [facility] ([id number]) [address], [address] [place] [address] Erythrocyte distribution width (RBC) [Ratio] 13.3 % Normal 11.5-15.0 [facility] Comment on above: Performed By: #### C AGNES, 1989-11, HA1C, CBCA, 5196-1, 61243-3, 77852-5, 2131-9, 55108-2, 8014-3, 96865-3 #### [facility] ([id number]) [address], [address] [place] [address] Hematocrit (Bld) [Volume fraction] 40.5 % Normal 35-47 [facility] Comment on above: Performed By: #### C AGNES, 1989-11, HA1C, CBCA, 5196-1, 97347-2, 48288-5, 2131-9, 67901-2, 8014-3, 88256-1 #### [facility] ([id number]) [address], [address] [place] [address] Hemoglobin (Bld) [Mass/Vol] 14.2 g/dL Normal 11.7-15.5 [facility] Comment on above: Performed By: #### C AGNES, 1989-11, HA1C, CBCA, 5196-1, 14713-7, 23818-2, 2131-9, 56886-3, 8014-3, 48911-2 #### [facility] ([id number]) [address], [address] [place] [address] Lymphocytes (Bld) [#/Vol] 1.3 10*3/uL Normal 1.0-3.5 [facility] Comment on above: Performed By: #### C AGNES, 1989-11, HA1C, CBCA, 5196-1, 07319-4, 84221-4, 2131-9, 26746-7, 8014-3, 37996-0 #### [facility] ([id number]) [address], [address] [place] [address] Lymphocytes/100 WBC (Bld) 18.2 % Normal [facility] Comment on above: Performed By: #### C AGNES, 1989-11, HA1C, CBCA, 5196-1, 13103-6, 54257-9, 2132-9, 82027-5, 8014-3, 40301-3 #### [facility] ([id number]) [address], [address] [place] [address] MCH (RBC) [Entitic mass] 30.7 pg Normal 27-34 [facility] Comment on above: Performed By: #### C AGNES, 1989-11, HA1C, CBCA, 5196-1, 31157-3, 92524-7, 2131-9, 61336-1, 8014-3, 01863-9 #### [facility] ([id number]) [address] [facility], [address] [place] [address] MCHC (RBC) [Mass/Vol] 35.2 g/dL Normal 32-36 [facility] Comment on above: Performed By: #### C AGNES, 1989-11, HA1C, CBCA, 5196-1, 80622-7, 20036-6, 2131-9, 65620-7, 8014-3, 72890-7 #### [facility] ([id number]) [address] [facility], [address] [place] [address] MCV (RBC) [Entitic vol] 87 fL Normal 80-100 [facility] Comment on above: Performed By: #### C AGNES, 1989-11, HA1C, CBCA, 5196-1, 69664-9, 24211-7, 2131-9, 20784-9, 8014-3, 26154-6 #### [facility] ([id number]) [address], [address] [place] [address] Monocytes (Bld) [#/Vol] 0.4 10*3/uL Normal 0-0.9 [facility] Comment on above: Performed By: #### C AGNES, 1989-11, HA1C, CBCA, 5196-1, 60736-3, 95103-5, 2132-9, 66879-3, 8014-3, 88661-9 #### [facility] ([id number]) [address], [address] [place] [address] Monocytes/100 WBC (Bld) 5.1 % Normal [facility] Comment on above: Performed By: #### C AGNES, 1989-11, HA1C, CBCA, 5196-1, 10204-8, 13280-1, 2131-9, 33011-5, 8014-3, 56545-3 #### [facility] ([id number]) [address], [address] [place] [address] Neutrophils/100 WBC (Bld) 73.8 % Normal [facility] Comment on above: Performed By: #### C AGNES, 1989-11, HA1C, CBCA, 5196-1, 39232-2, 30245-1, 2131-9, 25138-0, 8014-3, 76396-2 #### [facility] ([id number]) [address], [address] [place] [address] Platelet mean volume (Bld) [Entitic vol] 9.1 fL Normal 7-12 [facility] Comment on above: Performed By: #### C AGNES, 1989-11, HA1C, CBCA, 5196-1, 34486-8, 17129-0, 2131-9, 41486-4, 8014-3, 90390-8 #### [facility] ([id number]) [address], [address] [place] [address] Platelets (Bld) [#/Vol] 254 10*3/uL Normal 150-450 [facility] Comment on above: Performed By: #### C AGNES, 1989-11, HA1C, CBCA, 5196-1, 06861-7, 85902-3, 2131-9, 96803-3, 8014-3, 74166-8 #### [facility] ([id number]) [address], [address] [place] [address] RBC COUNT 4.63 X10E12/L Normal 3.80-5.20 [facility] Comment on above: Performed By: #### C AGNES, 1989-11, HA1C, CBCA, 5196-1, 53330-7, 18846-6, 2132-9, 36502-8, 8014-3, 87092-3 #### [facility] ([id number]) [address] [facility], [address] [place] [address] WBC (Bld) [#/Vol] 7.4 10*3/uL Normal 4.0-11.0 [facility] Comment on above: Performed By: #### C AGNES, 1989-11, HA1C, CBCA, 5196-1, 51077-0, 44616-3, 2131-9, 81354-6, 8014-3, 67201-8 #### [facility] ([id number]) [address] [facility], [address] [place] [address] COMPREHENSIVE METABOLIC PANE Jesse 12-11-2023 Albumin [Mass/Vol] 4.3 g/dL Normal 3.2-5.3 [facility] Comment on above: Performed By: #### C AGNES, 1989-11, HA1C, CBCA, 5196-1, 74906-6, 12644-6, 2131-9, 99765-3, 8014-3, 18549-7 #### [facility] ([id number]) [address] [facility], [address] [place] [address] ALP [Catalytic activity/Vol] 48 U/L Normal 39-130 [facility] Comment on above: Performed By: #### C AGNES, 1989-11, HA1C, CBCA, 5196-1, 31273-8, 85134-0, 2131-9, 97026-5, 8014-3, 04338-9 #### [facility] ([id number]) [address] [facility], [address] [place] [address] ALT [Catalytic activity/Vol] 13 U/L Normal 0-31 [facility] Comment on above: Performed By: #### C AGNES, 1989-11, HA1C, CBCA, 5196-1, 64476-3, 25924-2, 2131-9, 21859-5, 8014-3, 78023-6 #### [facility] ([id number]) [address], [address] [place] [address] Anion gap [Moles/Vol] 10 mmol/L Normal 5-15 [facility] Comment on above: Performed By: #### C AGNES, 1989-11, HA1C, CBCA, 5196-1, 27901-2, 81309-3, 2131-9, 05174-3, 8014-3, 56064-4 #### [facility] ([id number]) [address], [address] [place] [address] AST [Catalytic activity/Vol] 17 U/L Normal 0-41 [facility] Comment on above: Performed By: #### C AGNES, 1989-11, HA1C, CBCA, 5196-1, 35053-5, 87983-2, 2131-9, 42443-6, 8014-3, 36560-7 #### [facility] ([id number]) [address], [address] [place] [address] Bilirubin [Mass/Vol] 0.7 mg/dL Normal 0.3-1.2 [facility] Comment on above: Performed By: #### C AGNES, 1989-11, HA1C, CBCA, 5196-1, 12638-5, 93603-4, 2131-9, 19924-3, 8014-3, 56963-9 #### [facility] ([id number]) [address], [address] [place] [address] Calcium [Mass/Vol] 9.5 mg/dL Normal 8.5-10.5 [facility] Comment on above: Performed By: #### C AGNES, 1989-11, HA1C, CBCA, 5196-1, 13190-3, 98044-2, 2132-9, 63342-1, 8014-3, 23168-4 #### [facility] ([id number]) [address] [facility], [address] [place] [address] Chloride [Moles/Vol] 104 mmol/L Normal 98-109 [facility] Comment on above: Performed By: #### C AGNES, 1989-11, HA1C, CBCA, 5196-1, 01754-2, 05513-6, 2-9, 15502-9, 8014-3, 89198-8 #### [facility] ([id number]) [address] [address] [facility] [address] [place] [address] CO2 [Moles/Vol] 23 mmol/L Normal 22-32 [facility] Comment on above: Performed By: #### C AGNES, 1989-11, HA1C, CBCA, 5196-1, 91596-8, 66289-4, 2132-9, 99068-4, 8014-3, 98908-4 #### [facility] ([id number]) [address] [facility] [facility] [address] [place] [address] Creatinine [Mass/Vol] 0.49 mg/dL Normal 0.40-1.00 [facility] Comment on above: Result Comment: METH OD TRACEABLE TO IDMS STANDARD Performed By: #### C AGNES, 1989-11, HA1C, CBCA, 5196-1, 48558-4, 47056-7, 2-9, 78337-9, 8014-3, 97811-6 #### [facility] ([id number]) [address] [facility] [place] [address] eGFR (CKD-EPI) NON-RACE DEPENDENT >90 Normal >59 [facility] Comment on above: Result Comment: Reported eGFR is based on the CKD-EPI 2020 equation that does not use a race coefficient. Performed By: #### C AGNES, 1989-11, HA1C, CBCA, 5196-1, 36636-4, 06214-0, 2132-9, 92039-0, 8014-3, 56867-7 #### [facility] ([id number]) [address] [facility], [address] [place] [address] Glucose [Mass/Vol] 92 mg/dL Normal 65-99 [facility] Comment on above: Performed By: #### C AGNES, 1989-11, HA1C, CBCA, 5196-1, 62605-5, 47399-9, 2131-9, 85573-6, 8014-3, 48949-8 #### [facility] ([id number]) [address] [facility], [address] [place] [address] Potassium [Moles/Vol] 4.1 mmol/L Normal 3.5-5.0 [facility] Comment on above: Performed By: #### C AGNES, 1989-11, HA1C, CBCA, 5196-1, 85931-0, 37445-6, 2131-9, 84050-9, 8014-3, 89595-1 #### [facility] ([id number]) [address] [facility], [address] [place] [address] Protein [Mass/Vol] 7.5 g/dL Normal 6.0-8.0 [facility] Comment on above: Performed By: #### C AGNES, 1989-11, HA1C, CBCA, 5196-1, 41472-0, 76884-9, 2131-9, 34621-5, 8014-3, 07859-0 #### [facility] ([id number]) [address], [address] [place] [address] Sodium [Moles/Vol] 137 mmol/L Normal 134-146 [facility] Comment on above: Performed By: #### C AGNES, 1989-11, HA1C, CBCA, 5196-1, 49403-4, 06479-3, 2131-9, 05253-2, 8014-3, 68914-7 #### [facility] ([id number]) [address], [address] [place] [address] Urea nitrogen [Mass/Vol] 6 mg/dL Normal 5-23 [facility] Comment on above: Performed By: #### C AGNES, 1989-11, HA1C, CBCA, 5196-1, 68860-9, 81814-1, 2131-9, 52318-9, 8014-3, 56455-8 #### [facility] ([id number]) [address], [address] [place] [address] CRP [Mass/Vol]on 12-11-2023 C REACTIVE PROTEIN 0.5 mg/dL Normal 0.000-0.744 [facility] Comment on above: Performed By: #### C AGNES, 1989-11, HA1C, CBCA, 5196-1, 65465-1, 49609-4, 9, 01354-2, 8014-3, 09132-8 #### [facility] ([id number]) [address], [address] [place] [address] HBV surface Ag IA Qlon 12-10 HEPATITIS B SURF AG Negative Normal NEG [facility] Comment on above: Performed By: #### C AGNES, 1989-11, HA1C, CBCA, 5196-1, 67459-7, 35862-9, 9, 31751-2, 8014-3, 31535-3 #### [facility] ([id number]) [address], [address] [place] [address] HCV Ab IA Qlon 12-11-2023 ANTI HCV W/PCR REFLX Non-Reactive Normal NRCT Pr [facility] Comment on above: Result Comment: If recent infection suspected, recommend repeat testing (>2 months). Ifvuzm-tk-mycaen ratio is <0.80. Performed By: #### C AGNES, 1989-11, HA1C, CBCA, 5196-1, 35664-4, 18400-4, 2131-9, 46388-9, 8014-3, 83687-3 #### [facility] ([id number]) [address] [place] [address], [address] [place] [address] HGB A1C (GLYCO-HGB)on 2023 Glucose [Mass/Vol] 103 mg/dL Normal [facility] Comment on above: Performed By: #### C AGNES, 1989-11, HA1C, CBCA, 5196-1, 01139-9, 43385-2, 2131-9, 77678-3, 8014-3, 99920-7 #### [facility] ([id number]) [address] [place] [address], [facility] [address] [place] [address] HbA1c (Bld) [Mass fraction] 5.2 % Normal 4.4-5.6 [facility] Comment on above: Result Comment: NOTE ADA Guidelines Result HgbA1c Normal : less than 5.7 % Prediabetes : 5.7 % to 6.4 % Diabetes : > 6.4 % Use with caution in patients with abnormal hemoglobin variants as the half-life of red blood cells and in vivo glycation rates are affected. Performed By: #### C AGNES, 1989-11, HA1C, CBCA, 5196-1, 07902-0, 36079-9, 2131-9, 57729-4, 8014-3, 42879-3 #### [facility] ([id number]) [address], [address] [place] [address] HIV 1+2 Ab+HIV1 p24 Ag IA Ql on 12-11-2023 HIV 1 and 2 Ab/Ag Screen Non-Reactive Normal NRCT [facility] Comment on above: Result Comment: This [...] #### C AGNES, 1989-11, HA1C, CBCA, 5196-1, 96096-0, 77318-1, 9, 50916-6, 8014-3, 70284-4 #### [facility] ([id number]) [address] [place] [address], [address] [place] [address] Rubella virus IgG Qn (S)on 12-11-2023 RUBELLA IgG 30 IU/mL Normal [facility] Comment on above: Result Comment: Interpretation-------- <8 NEGATIVE-considered Not Immune 8-9 EQUIVOCAL-consider retesting with new specimen >9 POSITIVE-considered Immune Performed By: #### Clyde ALARCON, 1989-11, HA1C, CBCA, 5196-1, 02573-5, 94664-6, 9, 71267-0, 8014-3, 78711-0 #### [facility] ([id number]) [address] [place] [address], [address] [place] [address] T. pallidum IgG+IgM IA Ql (S )on 12-11-2023 Syphilis Total <0.2 Normal 0.0-0.8 [facility] Comment on above: Result Comment: NON REACTIVE No serologic evidence of infection to Treponema pallidum (syphilis). Repeat testing may be considered in patients with suspected acute or primary syphilis in 2 to 4 weeks. Performed By: #### Clyde ALARCON, 1989-11, HA1C, CBCA, 5196-1, 76165-2, 98528-3, 2131-9, 94231-6, 8014-3, 07297-8 #### [facility] ([id number]) [address], [address] [place] [address] VITAMIN B12on 12-11-2023 Cobalamin (Vitamin B12) [Mass/Vol] 142 pg/mL Low 180-914 [facility] Comment on above: Performed By: #### C AGNES, 1989-11, HA1C, CBCA, 5196-1, 37394-4, 58532-1, 9, 86512-2, 8014-3, 20685-3 #### [facility] ([id number]) [address], [address] [place] [address] Vitamin D+Metabolites [Mass/ Vol]on 12-11-2023 VITAMIN D 25 HYD TOT 21.8 ng/mL Low 30-100 [facility] Comment on above: Result Comment: Vitamin D status 25 [place] Vitamin D Deficiency <20 ng/mL Insufficiency 20-29 ng/mL Sufficiency 30-100 ng/mL Toxicity >100 ng/mL NOTE: A pediatric reference range has not been established by the hot car operator of this kit. The [place] [employer] recommends a Vitamin D level of = or >20ng/mL in infants and children. Performed By: #### C , 1989-11, HA1C, CBCA, 5196-1, 27940-7, 20779-1, 9, 96686-7, 8014-3, 81931-7 #### [facility] ([id number]) [address], [address] [place] [address] SARS/FLU A+B/RSV by NAAT/Mol ecularon 10-08-2023 SARS/FLU [...] operators who are performing tests using either [facility] or [employer] systems and is limited to laboratories that [...] repeat. Fact Sheet for Healthcare Providers: https://www.fda.gov/media /272558/download Fact Sheet for Patients: https://www.fda.gov/media /031175/download [facility] Comment on above: Performed By: #### C OVVAR #### [facility] ([id number]) [address] [place] [address], [place] [address] Consultation Noteon 12-18-19 20 Consultation Note [id number]:12 7 Normal [facility] Ambulatory Patient Education on 06-04-2018 Ambulatory Patient Education Patient Education MaterialsName: Comfort Maldonado Current Date: 06/04/2018 11:43:12 [place] 1995 following sheet(s) are the Patient Education Leaflets for Comfort Maldonado Normal [facility] Gastroenterology Office/Clin ic Noteon 06-04-2018 Gastroenterology [...] her being referred to Dr. Bowers at [facility] in [place]. She states that she had a colonoscopy [...] Endoscopy history: Colonoscopy done on 04/17/[address] [facility] Constitutional: 45 pound weight loss since September [...] she was placed on steroids at the [facility] GI physician. She states that she is [...] _Trang Harrison MD 06/05/18 15:58 EST Normal [facility] Vital Signs Date Time Vital Sign Value Performing Clinician Facility 05-16-2024 09:01-0400 Body weight 70.67 kg Sherry Horan [employer] Work Phone: [facility] 05-16-2024 09:01-0400 Diastolic blood pressure 64 mm[Hg] Sherry Aung DO Work Phone: [facility] 05-16-2024 09:01-0400 Systolic blood pressure 120 mm[Hg] Sherry Aung DO Work Phone: [facility] 05-15-2024 16:05-0400 Diastolic blood pressure 72 mm[Hg] [address] 05-15-2024 16:05-0400 Heart rate 93 /min [address] 05-15-2024 16:05-0400 Systolic blood pressure 110 mm[Hg] [address] 05-02-2024 09:35-0400 Body weight 68.58 kg Sayra BROWN Work Phone: [facility] 05-02-2024 09:35-0400 Diastolic blood pressure 68 mm[Hg] Sayra BROWN Work Phone: [facility] 05-02-2024 09:35-0400 Systolic blood pressure 110 mm[Hg] Sayra BROWN Work Phone: [facility] 10-25-2023 11:28-0400 Body temperature 99.1 [degF] [facility] 2 [facility] 10-25-2023 11:28-0400 Diastolic blood pressure 62 mm[Hg] [facility] 2 [facility] 10-25-2023 11:28-0400 Heart rate 74 /min [facility] 2 [facility] 10-25-2023 11:28-0400 Respiratory rate 18 /min [facility] 2 [facility] 10-25-2023 11:28-0400 Systolic blood pressure 97 mm[Hg] [facility] 2 [facility] 10-25-2023 08:54-0400 Body mass index (BMI) [Ratio] 25.32 kg/m2 [facility] 2 [facility] 10-25-2023 08:54-0400 Body weight 60.78 kg [facility] 2 [facility] 08-30-2023 11:44-0500 Body temperature 98.2 [degF] [facility] 1 [facility] 08-30-2023 11:44-0500 Diastolic blood pressure 68 mm[Hg] [facility] 1 [facility] 08-30-2023 11:44-0500 Heart rate 73 /min [facility] 1 [facility] 08-30-2023 11:44-0500 SaO2% (BldA) [Mass fraction] 98 % [facility] 1 [facility] 08-30-2023 11:44-0500 Systolic blood pressure 99 mm[Hg] [facility] 1 [facility] 08-30-2023 09:00-0500 Body mass index (BMI) [Ratio] 26.38 kg/m2 [facility] 1 [facility] 08-30-2023 09:00-0500 Body weight 63.32 kg [facility] 1 [facility] Encounters Encounter Date Encounter Type Care Provider Facility Start: 05-17-2024 End: 05-17-2024 Orders Only Akila Snider RN [facility] Comment on above: growth restric tion antepartum (Primary Dx); Crohn's disease of both small and large intestine with intestinal obstruction (CMS-HCC); 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 Start: 05-16-2024 End: 05-16-2024 Bamboo flowsheet Sherry Aung DO Work Phone: [facility] Start: 05-16-2024 End: 05-16-2024 Bamboo flowsheet Sherry Aung DO Work Phone: [facility] Start: 05-16-2024 End: 05-16-2024 Office outpatient visit 15 minutes Sherry Aung DO Work Phone: [facility] Comment on above: 32 weeks gestation o f ; Third trimester Start: 05-16-2024 End: 05-16-2024 ambulatory SHERRY AUNG Not Available Start: 05-15-2024 End: 05-15-2024 Orders Only Jenni Owen CMA [facility] Comment on above: growth restric tion antepartum (Primary Dx) Crohn's disease of b oth small and large intestine with intestinal obstruction (CMS-HCC) (Primary Dx); growth restriction antepartum Start: 05-02-2024 End: 05-02-2024 Bamboo flowsheet Sayra BROWN Work Phone: [facility] Start: 05-02-2024 End: 05-02-2024 Bamboo flowsheet Sayra BROWN Work Phone: [facility] Start: 05-02-2024 End: 05-02-2024 Office outpatient visit 15 minutes Sayra BROWN Work Phone: [facility] Comment on above: 30 weeks gestation o f (Primary Dx); Third trimester Start: 05-02-2024 End: 05-02-2024 ambulatory SAYRA ANDREWS Not Available Start: 04-30-2024 End: 04-30-2024 ambulatory [facility] Start: 04-17-2024 End: 04-17-2024 ambulatory [facility] Start: 04-10-2024 End: 04-10-2024 ambulatory [facility] Start: 04-04-2024 End: 04-04-2024 [facility] Start: 04-02-2024 End: 04-02-2024 ambulatory [facility] Start: 03-29-2024 End: 03-29-2024 ambulatory [facility] Start: 03-28-2024 End: 03-28-2024 ambulatory [facility] Start: 03-28-2024 End: 03-28-2024 ambulatory [facility] Start: 03-19-2024 End: 03-19-2024 ambulatory YADIRA CHAU [facility] Start: 03-05-2024 End: 03-05-2024 ambulatory SAYRA ANDREWS Not Available Start: 02-29-2024 End: 02-29-2024 ambulatory SURESH Noa HOIDJean [facility] Start: 02-20-2024 End: 02-20-2024 [facility] Start: 02-14-2024 End: 02-14-2024 ambulatory PREMA ABRAHAM [facility] Start: 02-06-2024 End: 02-06-2024 ambulatory SHERRY AUNG Not Available Start: 01-09-2024 End: 01-09-2024 ambulatory SHERRY AUNG Not Available Start: 12-20-2023 End: 12-20-2023 ambulatory PREMA ABRAHAM [facility] Start: 12-11-2023 End: 12-11-2023 ambulatory SHERRY R AUNG [facility] Start: 12-08-2023 End: 12-08-2023 ambulatory SHERRY AUNG Not Available Start: 11-30-2023 End: 11-30-2023 ambulatory SURESH DIAZ [facility] Start: 10-25-2023 End: 10-25-2023 ambulatory [facility] Dh Infusion Chair 2 [facility] Comment on above: Crohn's disease of s mall and large intestines with complication ([facility]) (Primary Dx) Start: 10-24-2023 Telephone encounter Amanda [facility] Start: 10-08-2023 End: 10-08-2023 Emergency department patient visit PREMA ABRAHAM [facility] Start: 08-30-2023 End: 08-30-2023 ambulatory [facility] Infusion Chair 1 [facility] Comment on above: Crohn's disease of s mall and large intestines with complication ([facility]) (Primary Dx) Start: 09-17-2019 End: 09-18-2019 Patient encounter procedure PREMA ABRAHAM Facility:[facility] Start: 06-04-2018 End: 06-05-2018 Patient encounter procedure Trang Harrison [facility] Procedures Date Procedure Procedure Detail Performing Clinician Start: 05-16-2024 Urnls dip stick/tabl et rgnt non-auto w/o micrscp Sherry Aung DO Work Phone: Start: 05-15-2024 nonstress test Na colin Roman MD Work Phone: Start: 02-06-2024 Microscopic observat ion [Identifier] in Cervix by Cyto stain Jenni Owen [facility] Start: 11-30-2023 Follow-up visit Follow-up SURESH DIAZ Start: 11-11-2021 Microscopic observat ion [Identifier] in Cervix by Cyto stain [facility] 1 Start: 03-04-2021 Adult depression scr eening assessment [facility] 1 Start: 04-14-2020 H/O: colostomy Colostomy status [facility] 1 Start: 12-03-2019 H/O: ileostomy Ileostomy status [facility] 1 Plan of Treatment Date Care Activity Detail Author Start: 02-05-2027 Screening for malign ant neoplasm of cervix Pap Smear [facility] [id number] Start: 05-17-2025 End: 05-17-2025 US MFM with or without consult US MFM with or without consult Imaging Routine growth restriction antepartum Crohn's disease of both small and large intestine with intestinal obstruction (CMS-HCC) 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 Expected: 05/17/2025 (Approximate), Expires: 05/17/2025 [employer] Work Phone: Comment on above: Expected: 05/17/2025 (Approximate), Expires: 05/17/2025 Start: 05-15-2025 Tobacco Screening Tobacco Screening [facility] [employer] [facility] Start: 04-17-2025 Adult BMI Screening Adult BMI Screen ing [facility] [employer] [facility] Start: 11-11-2024 Screening for malign ant neoplasm of cervix [facility] Start: 10-24-2024 Adult BMI Screening Adult BMI Screen ing [facility] [employer] [facility] Start: 10-07-2024 Tobacco Screening [facility] Screening [facility] Start: 08-30-2024 Adult BMI Screening Adult BMI Screen ing [facility] Start: 06-11-2024 End: 06-11-2024 Patient encounter procedure [facility] Start: 06-05-2024 End: 06-05-2024 ambulatory 06/05/2024 9:00 AM EST Infusion [facility] [address] [id number] [facility] Start: 06-03-2024 End: 06-03-2024 Patient encounter procedure 06/03/2024 8:30 AM EST Routine [facility] [address] [place] [address] Sherry Horan DO [address] [place] [address] [facility] Start: 05-30-2024 End: 05-30-2024 Patient encounter procedure 05/30/2024 3:00 PM EDT Appointment [facility] [address] [place] [id number] [facility] Start: 05-16-2024 End: 05-16-2024 Patient encounter procedure [facility] Comment on above: Arrived Start: 05-10-2024 Tobacco Screening Tobacco Screening [facility] Start: 05-02-2024 End: 05-02-2024 Patient encounter procedure 05/02/2024 9:30 AM EDT Routine [facility] [address] [place] [address] Sayra Andrews PA [address] [place] [address] Arrived [facility] Comment on above: Arrived Start: 03-31-2024 Influenza vaccination Influenza Vacc ine [facility] Start: 12-20-2023 End: 12-20-2023 ambulatory 12/20/2023 9:00 AM EDT Infusion [facility] [address] [place] [id number] [facility] Start: 11-30-2023 End: 11-30-2023 Patient encounter procedure 11/30/2023 9:30 AM EDT Office Visit [facility] [address] [place] [phone] Suresh Diaz MD [address] [place] [address] [facility] Start: 10-25-2023 End: 10-25-2023 ambulatory 10/25/2023 9:00 AM EDT Infusion [facility] [address] [place] [phone] [facility] Start: 03-31-2023 Influenza vaccination Influenza Vacc ine [facility] Start: 03-04-2022 Depression Screening Depression Scre ening [facility] Start: 2012 DTaP,Tdap and Td Vaccines (1 - Tdap) DTaP,Tdap and Td Vaccines (1 - Tdap) [facility] Start: 2011 Adult BMI Follow Up Plan Adult BMI Follow Up Plan [facility] Start: 2005 Depression Screening Depression Scre ening [facility] End: 10-24-2024 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[employer] Lab Routine Crohn's disease of small and large intestines with complication ([facility]-H[facility]) 1 Occurrences starting 10/25/2023 until 10/24/2024 [facility] Work Phone: Comment on above: 1 Occurrences starti ng 10/25/2023 until 10/24/2024 Payers Date Payer Category Payer Medicaid [id number] 2022 Medicaid [id number] 1995 Unknown [id number] 2.16.8 40.1.253945.3.579.2.196 1993 Unknown [id number] 2.16.84 0.1.148883.3.579.2.593 1993 Unknown [id number] 2.16.8 40.1.944667.3.579.2.1286 1993 Unknown [id number] 2.16.8 40.1.007714.3.579.2.1286 1993 Unknown [id number] 2.16.8 40.1.729156.3.579.2.1285 1993 Unknown [id number] 2.16.8 40.1.862024.3.579.2.1285 1993 Unknown [id number] 2.16.8 40.1.896556.3.579.2.1285 1993 Unknown [id number] 2.16.8 40.1.595795.3.579.2.1285 1993 Unknown [id number] 2.16.8 40.1.323515.3.579.2.1285 1993 Unknown [id number] 2.16.8 40.1.685597.3.579.2.1285 1993 Unknown [id number] 2.16.8 40.1.190966.3.579.2.1285 1993 Unknown [id number] 2.16.8 40.1.555370.3.579.2.1285 1993 Unknown [id number] 2.16.8 40.1.329140.3.579.2.1285 1993 Unknown [id number] 2.16.8 40.1.451098.3.579.2.1285 1993 Unknown [id number] 2.16.8 40.1.497212.3.579.2.1285 1993 Unknown [id number] 2.16.8 40.1.998740.3.579.2.1285 1993 Unknown [id number] 2.16.8 40.1.996725.3.579.2.1285 1993 Unknown [id number] 2.16.8 40.1.145320.3.579.2.1285 1993 Unknown [id number] 2.16.8 40.1.356654.3.579.2.1285 1993 Unknown [id number] 2.16.8 40.1.433697.3.579.2.1286 1993 Unknown [id number] 2.16.8 40.1.029967.3.579.2.1286 1993 Unknown [id number] 2.16.8 40.1.016915.3.579.2.1286 1993 Unknown [id number] 2.16.8 40.1.784858.3.579.2.1286 1993 Unknown [id number] 2.16.8 40.1.505118.3.579.2.1286 1993 Unknown [id number] 2.16.84 0.1.405998.3.579.2.1259 1993 Unknown [id number] 2.16.84 0.1.393295.3.579.2.1259 1993 Unknown [id number] 2.16.84 0.1.288379.3.579.2.9 1993 Unknown [id number] 2.16.84 0.1.756461.3.579.2.1259 1993 Unknown [id number] 2.16.84 0.1.101007.3.579.2.1259 1993 Unknown [id number] 2.16.84 0.1.577969.3.579.2.1259 1993 Unknown [id number] 2.16.84 0.1.223593.3.579.2.1259 1959 Self-pay [id number] 07-31-1799 Self-pay Social History Date Type Detail Facility Start: 07-05-2022 End: 12-08-2023 Tobacco smoking status NYIS Never smoked tobacco [facility] Start: 07-05-2022 End: 12-08-2023 Tobacco use and exposure Smokeless tobacco non-user [facility] Start: 05-10-2023 End: 10-08-2023 Alcohol intake Current drinker of alcohol (finding) [facility] Start: 08-10-2020 End: 05-10-2023 Alcohol intake [facility] Start: 08-06-2020 End: 08-10-2020 Social connection and isolation panel [facility] Do you belong to any clubs or organizations such as jew groups, unions, fraternal or athletic groups, or school groups? No [facility] Are you now , , , , never or living with a partner? [facility] How often to you hav e a drink containing alcohol? 2-4 times a month [facility] Average Number of Drinks Not on file [facility] Do you feel stress - tense, restless, nervous, or anxious, or unable to sleep at night because your mind is troubled all the time - these days [OSQ] Only a little [facility] Start: 12-22-2021 Alcohol Comment socially [facility] Start: 1995 Sex Assigned At Not on file [facility] Start: 05-02-2024 End: 05-15-2024 Alcoholic beverage intake Ex-drinker (finding) [facility] Start: 10-17-2023 [facility] Start: 10-16-2019 Sex Female (finding) [facility] Goals Date Patient Goal Desired Activity /State Personal health goal Comment on above: Formatting of this n ote might be different from the original. Evaluation of progress towards goal: Patient plans to return home with [facility] Clinical Notes 08-30-2023 to 05-16-2024 Paddy Garza LPN - 05/16/2024 9:00 AM Chandler Richardson RN - 05/15/2024 3:15 PM STEPHANIE Alarcon - 05/02/2024 9:30 AM Anika Vargas RN - 10/25/2023 9:00 AM EDT Note Date & Type Note Facility 05-16-2024 History of Presen t illness Narrative Reason for Appointment: Patient ID: Comfort Maldonado is a 28 y.o. female who presents for Routine Visit Patient presents today for Return OB appointment. MEDICATIONS Current Outpatient Medications Medication Instructions Cholecalciferol 25 MCG (1000 UT) chewable tablet Daily RT inFLIXimab-axxq (Avsola) 100 MG injection 5 mg/kg, Every 2 months Vit-Fe Fumarate-FA (GOODSENSE VITAMINS PO) 1 each, Daily ALLERGIES No Known Allergies PROBLEMS Active Ambulatory Problems Diagnosis Date Noted No Active Ambulatory Problems Resolved Ambulatory Problems Diagnosis Date Noted No Resolved Ambulatory Problems Past Medical History: Diagnosis Date Crohn's disease (CMS/HCC) Genital warts Herpes Ovarian cyst HISTORY PAST MEDICAL HISTORY SOCIAL HISTORY Past Medical History: Diagnosis Date Crohn's disease (CMS/HCC) Genital warts Herpes Ovarian cyst Social History Tobacco Use Smoking status: Never Smokeless tobacco: Never Substance Use Topics Alcohol use: Not Currently Drug use: Not Currently Types: Marijuana FAMILY HISTORY Family History Problem Relation Name Age of Onset Diabetes Father SURGICAL HISTORY Past Surgical History: Procedure Laterality Date ABDOMINAL SURGERY BOWEL RESECTION SECTION, LOW TRANSVERSE REVIEW OF SYSTEMS Review of Systems: Review of Systems All other systems reviewed and are negative. OBJECTIVE Objective: Physical Exam Constitutional: Appearance: Normal appearance. She is well-developed. Cardiovascular: Rate and Rhythm: Normal rate and regular rhythm. Pulmonary: Effort: Pulmonary effort is normal. Breath sounds: Normal breath sounds. Abdominal: General: Bowel sounds are normal. There is no distension. Palpations: Abdomen is soft. Tenderness: There is no abdominal tenderness. There is no guarding or rebound. Musculoskeletal: General: No swelling. Normal range of motion. Right lower leg: No edema. Left lower leg: No edema. Neurological: Mental Status: She is alert and oriented to person, place, and time. Skin: General: Skin is warm and dry. Psychiatric: Mood and Affect: Mood normal. Behavior: Behavior normal. Vitals and nursing note reviewed. Exam conducted with a spanish professor present. Vitals: There is no height or weight on file to calculate BMI. BP: 120/64 Patient's last menstrual period was 10/03/2023. ASSESSMENT & PLAN ICD-10-CM 1. 32 weeks gestation of Z3A.32 POCT urinalysis dipstick manually resulted 2. Third trimester Z34.93 POCT urinalysis dipstick manually resulted Patient presents today for a routine obstetrics appointment. Patient is currently 32w2d with a Estimated Date of Delivery: 07/09/24. Discussed recent [facility] appointment with patient and delivery due to SGA & Crohn's Disease. Nursing will obtain office note from MFM appointment yesterday. Patient given order to have NST/BPP done locally at [facility]. Documented by Paddy Garza LPN on behalf of: Sherry Horan DO documented in this encounter [facility] 05-15-2024 History of Presen t illness Narrative Denies cramping or contractions. Denies LOF, abnormal vaginal discharge or vaginal bleeding. +FM per patient. Denies headache, epigastric pain, visual disturbance or swelling. Uterine irritability noted, intercourse this morning. Instructed to notify physician if experiencing any of the following: intermittent low back pain abdominal or menstrual like cramping that is comes and goes or is constant vaginal pressure uterine contractions that are regular and timeable water breaks or feels a gush of fluid any vaginal bleeding that is heavier than a menstrual period decrease or absence of baby movement Advised to drink plenty of fluids, take all prescribed medications, and to keep all scheduled appointments documented in this encounter [facility] 05-02-2024 History of Presen t illness Narrative Reason for Appointment: Patient ID: Comfort Maldonado is a 28 y.o. female who presents for Routine Visit Patient presents today for Return OB appointment. MEDICATIONS Current Outpatient Medications Medication Instructions Cholecalciferol 25 MCG (1000 UT) chewable tablet Oral, Daily RT inFLIXimab-axxq (Avsola) 100 MG injection 5 mg/kg, Intravenous, Every 2 months Vit-Fe Fumarate-FA (GOODSENSE VITAMINS PO) 1 each, Daily ALLERGIES No Known Allergies PROBLEMS Active Ambulatory Problems Diagnosis Date Noted No Active Ambulatory Problems Resolved Ambulatory Problems Diagnosis Date Noted No Resolved Ambulatory Problems Past Medical History: Diagnosis Date Crohn's disease (CMS/HCC) Genital warts Herpes Ovarian cyst HISTORY PAST MEDICAL HISTORY SOCIAL HISTORY Past Medical History: Diagnosis Date Crohn's disease (CMS/HCC) Genital warts Herpes Ovarian cyst Social History Tobacco Use Smoking status: Never Smokeless tobacco: Never Substance Use Topics Alcohol use: Not Currently Drug use: Not Currently Types: Marijuana FAMILY HISTORY Family History Problem Relation Name Age of Onset Diabetes Father SURGICAL HISTORY Past Surgical History: Procedure Laterality Date ABDOMINAL SURGERY BOWEL RESECTION SECTION, LOW TRANSVERSE REVIEW OF SYSTEMS Review of Systems: Review of Systems Constitutional: Negative. HENT: Negative. Eyes: Negative. Respiratory: Negative. Cardiovascular: Negative. Gastrointestinal: Negative. Genitourinary: Negative. Musculoskeletal: Negative. Skin: Negative. Neurological: Negative. All other systems reviewed and are negative. Hematological: Negative. Endocrine: Negative. Allergic/Immunologic: Negative. OBJECTIVE Objective: Physical Exam Constitutional: Appearance: Normal appearance. She is normal weight. HENT: Head: Normocephalic. Cardiovascular: Rate and Rhythm: Normal rate. Pulses: Normal pulses. Pulmonary: Effort: Pulmonary effort is normal. Breath sounds: Normal breath sounds. Abdominal: Palpations: Abdomen is soft. Musculoskeletal: General: Normal range of motion. Neurological: General: No focal deficit present. Mental Status: She is alert and oriented to person, place, and time. Psychiatric: Mood and Affect: Mood normal. Behavior: Behavior normal. Thought Content: Thought content normal. Judgment: Judgment normal. Vitals and nursing note reviewed. Vitals: There is no height or weight on file to calculate BMI. BP: 110/68 Patient's last menstrual period was 10/03/2023. ASSESSMENT & PLAN ICD-10-CM 1. Third trimester Z34.93 Return OB: Patient presents today for a routine obstetrics appointment. Patient is currently 30w2d . Patient states she is doing well but has complaints of being tired due to current . Patient has verbalizes frequent movement. labor precautions was discussed/given and patient was instructed to perform kick counts three times a day. No orders of the defined types were placed in this encounter. Follow Up: Patient is to return to office in 2 week for routine OB appointment. Documented by STEPHANIE Thorne on behalf of: STEPHANIE Thorne documented in this encounter [facility] 10-25-2023 History of Presen t illness Narrative 0900 Patient here for Avsola infusion. Patient denies any recent infections, open wounds, recent/future surgery, or insurance changes . IV started with 22g needle to right AC by paddy gill x 1 attempt . Patient tolerated well. Avsola x 2 vials, lot# [id number], exp date Avsola x 1 vial, lot# [id number], exp date 02/27/2027 Time out performed with [...] of info given. [facility] Miscellaneous Notes Formattin g of this note might be different from the original. Patient currently receiving Avsola 5mg/kg every 8 weeks. However due to hot car operator delay we are unable to obtain medication. Prior auth request forms completed for Remicade 5mg/kg to be given every 56 days, faxed to [phone] Remicade approved for 5mg/kg (400mg) for 7 visits from 10/25/2023-10/23/2024. Auth # [id number] Referral placed. Therapy plan updated. Flowsheet updated. documented in this [facility]-24-2023 Telephone encount er Note Patient currently receiving Avsola 5mg/kg every 8 weeks. However due to hot car operator delay we are unable to obtain medication. Prior auth request forms completed for Remicade 5mg/kg to be given every 56 days, faxed to [phone] [facility] 10-24-2023 Telephone encount er Note Remicade approved for 5mg/kg (400mg) for 7 visits from 10/25/2023-10/23/2024. Auth # [id number] Referral placed. Therapy plan updated. Flowsheet updated. [facility] 08-30-2023 History of Presen t illness Narrative 0906 Patient here for Avsola infusion. Patient denies any recent infections, open wounds, recent/future surgery, or insurance changes . Site cleansed with alcohol. IV started with 22g needle by Juan M GILL in right antecube. Patient tolerated well. 1142 patient infusion complete. IV discontinued at 1142. Patient tolerated infusion well. documented in this encounter [facility] Evaluation note Diagnosis Crohn's disease of small and large intestines with complication (CMS-HCC)- Primary [facility] Diagnosis Crohn's disease of small and large intestines with complication (CMS-HCC)- Primary [facility] Diagnosis 30 weeks gestation of - Primary Third trimester state, incidental documented in this encounter [facility]* Diagnosis Crohn's disease of both small and large intestine with intestinal obstruction (CMS-HCC)- Primary growth restriction antepartum growth restriction antepartum- Primary [facility] Diagnosis Crohn's disease of both small and large intestine with intestinal obstruction (CMS-HCC)- Primary growth restriction antepartum [facility] Diagnosis 32 weeks gestation of Third trimester state, incidental documented [facility] encounter [facility] Diagnosis growth restriction antepartum- Primary Crohn's disease of both small and large intestine with intestinal obstruction (CMS-HCC) 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 [facility] filedocumented in this [facility] filedocumented in this [facility] filedocumented in this [facility] filedocumented in this encounter [facility] Summary Purpose Family History No Family History Records FoundNo Family History Records FoundNo Family History Records FoundNo Family History Records FoundNo Family History Records FoundNo Family History Records FoundNo Family History Records Found Advance Directives Latest Code Status on File Code Status Date Activated Date Inactivated Comments Full Code 08/06/2020 1:34 PM 08/12/2020 7:54 PM Date Activated Date Inactivated Comments 08/06/2020 1:34 PM 08/12/2020 7:54 PM Date Activated Date Inactivated Comments 08/06/2020 1:34 PM 08/12/2020 7:54 PM Additional Source Comments INFORMATION SOURCE (unrecogn ized section and content) DATE CREATED AUTHOR 07/08/2018 [facility] DATE CREATED AUTHOR AUTHOR'S ORGANIZ ATION 09/20/2019 [facility] DATE CREATED AUTHOR AUTHOR'S ORGANIZ ATION 12/18/2019 [facility] DATE CREATED AUTHOR AUTHOR'S ORGANIZ ATION 04/03/2024 [facility] DATE CREATED AUTHOR AUTHOR'S ORGANIZ ATION 04/12/2024 [facility] DATE CREATED AUTHOR AUTHOR'S ORGANIZ ATION 05/18/2024 [facility] DATE CREATED AUTHOR AUTHOR'S ORGANIZ ATION 05/18/2024 [facility] EPIC Reason for Visit (unrecogniz ed section and content) Reason Comments Outpatient Infusion Avsola Specialty Diagnoses / Procedures Referred By Theodore kohli Referred To Contact Gastroenterology Diagnoses Crohn's disease of both small and large intestine with unspecified complications Renflexis 400mg q8 weeks, 7 visits, 02.02.23 - 02.02.24, HK/CF, Crohn's Procedures INJECTION, INFLIXIMAB-AXXQ, BIOSIMILAR, (AVSOLA), 10 [place] [address] [place] [id number] [facility] [address] [place] [address] Referral ID Status Reason Start Date Expiration Date V isits Requested Visits Authorized [id number] Authorized 02/02/2023 02/02/2024 7 7 Reason Comments Outpatient Infusion Avsola Reason Comments Routine Visit Reason Comments add on NST for [facility]GR Specialty Diagnoses / Procedures Referred By Contac t Referred To Contact Maternal and Medicine Diagnoses growth restriction antepartum Procedures nonstress test - Maternal Medicine Devyn Roman MD [address] [facility] [address], [address] [place] [address] Phone: tel: fax: Maternal- Medicine at [address] [place] [address] Phone: tel: fax: Referral ID Status Reason Start Date Expiration Date V isits Requested Visits Authorized [id number] Pending Review 05/15/2024 05/15/2025 1 1 Care Teams (unrecognized sec tion and content) [employer] Operator Relationship Specialty Start Date End Date Prema Abraham MD [address] [place], [place] [id number] PCP - General Family Medicine 12/17/19 [employer] Operator Relationship Specialty [place] [address] [place] [id number] PCP - General Family Medicine 10/08/23 [employer] Operator Relationship Specialty [place] [address] [place] [id number] PCP - General Family Medicine 10/08/23 [employer] Equipment Operator Relationship Specialty Start Date End Date Prema Abraham MD [address] [place] [address] PCP - General Family Medicine 02/29/24 [employer] Equipment Operator Relationship Specialty Start Date End Date Prema Abraham MD [address] [place] [address] PCP - General Family Medicine 02/29/24 [employer] Equipment Operator Relationship Specialty Start Date End Date Prema Abraham MD [address] [place], [place] [id number] PCP - General Family Medicine 02/29/24 FOR RECORDS PERTAINING TO PATIENTS WHO ARE [...] BE BASED ON THE PRIMARY CLINICAL RECORDS. [email or web address] provides no warranty or guarantee of the accuracy or completeness of information in this document.
--- NOTE | 2024-05-21 08:28 | US_ITS ---
[address] [address] Patient Name: ZAINAB SAAVEDRA MRN: [id number] date: 1995 Sex: F Assigned Patient Location: US Current Patient Location: Accession/Order Number: [id number] Exam Date: 05/21/2024 09:00 Report Date: 05/21/2024 10:29 At the request of: SHERRY REYNA Procedure: US OB BPP w non-stress EXAMINATION: US OB BPP w non-stress HISTORY: Crohn's disease with complication COMPARISON: No relevant comparison available. TECHNIQUE: Ultrasound biophysical profile was performed in the radiology department. non-reactive stress testing was performed by nursing staff in the birthing center. FINDINGS: BREATHING MOVEMENTS: 2 GROSS BODY MOVEMENTS: 2 TONE: 2 QUALITATIVE AMNIOTIC FLUID VOLUME: 2 PRESENTATION: BREECH HEART RATE: 146.74 bpm AMNIOTIC FLUID VOLUME: 18.0 cm GESTATIONAL AGE: 33 weeks 0 days US/US OB BPP w non-stress IMPRESSION: Total biophysical profile score: 8 Electronically authenticated by: ALLISON TOWNSEND Date: 05/21/2024 10:29
[2024-05-21 09:23] VITALS: BP 126/85; PULSE 106
== END 2024-05-21 09:48 | disposition home or self-care (01) ==
LOC: US 07:03 → FBC 08:52
PROVIDERS: PCP Family Medicine; Visit Provider Obstetrics & Gynecology
DX: K50.919 Crohn's disease, unspecified, with unspecified complications (principal); O99.891 Other specified diseases and conditions complicating pregnancy; Z3A.33 33 weeks gestation of pregnancy
CPT/HCPCS: 76818

== ENCOUNTER 2024-05-24 07:15 | Outpatient (OUT) | payer MEDICAID, SELFPAY ==
--- OUTSIDE RECORDS SUMMARY | 2024-05-24 07:19 | XMS_ITS | CCD ---
Author Organization [facility] Care Team Providers Care Osteopathic Physician Name Role Phone Trang Harrison Unavailable Unavailable Prema Abraham Unavailable Unavaila PREMA Mahan Admitting Unavailable PREMA ABRAHAM Attending Unavailable PREMA ABRAHAM Primary Care Unavailable ALLISON TOWNSEND V Consulting Unavailable PREMA ABRAHAM Consulting Unavailable Prema Abraham MD Primary Care Provider [phone] Prema Abraham MD Primary Care Provider PREMA ABRAHAM Primary Care Unavailable SHERRY HORAN Referring Unavailable PREMA ABRAHAM Referring Unavailable PREMA ABRAHAM Primary Care Unavailable PREMA ABRAHAM Referring Unavailable PREMA ABRAHAM Primary Care Unavailable SURESH DIAZ Referring Unavailable Unavailable Primary Care Provider UnavailPrema Sheriff MD Primary Care Provider [phone] PREMA ABRAHAM Referring Unavailable PREMA ABRAHAM Primary [...] UA Negative Negative - 4(70) +++ mg/dL [facility] Blood, UA Positive Negative - 50 Kal/mcL [facility] Comment on above: trace-intact Clarity, UA Clear [facility] Color, UA Yellow [facility] Glucose, UA Negative Negative - 1999(110) ++++ mg/dL [facility] Interpretation and review of laboratory results Abnormal [facility] Ketones, UA Negative Negative - 160(16) ++++ mg/dL [facility] Leukocytes, UA Negative Negative - 500+++ Sandra/mcL [facility] Nitrite, UA Negative Negative - Positive [facility] pH, UA 6 5 - 9 [facility] Protein, UA Negative Negative - 2000(20) ++++ mg/dL [facility] Spec Grav, UA 1.025 1 - 1.03 [facility] Urobilinogen, UA 0.2 0.2 - 12 mg/dL [facility] No Panel Informationon 05-15 Patient Name: Kishor Maldonado Patient : 1995 NST Objective Findings: Variability: Moderate Decelerations: None Accelerations: Yes Acoustic Stimulator: No Baseline: 130 BPM Uterine Irritability: Yes Contractions: Not present Comments: Uterine irritability noted, intercourse this morning. [facility] instructions/handout and labor precautions reviewed. NST Interpretation: Nonstress Test Interpretation: Reactive (Devyn Roman MD) NST performed by: Aislinn Richardson RN 05/15/2024 4:30 PM [facility] M. tuberculosis stim IFN-g p venkat (Bld)on 03-29-2024 Mitogen minus Nil Result 1.22 IU/mL Normal [facility] Comment on above: Performed By: #### C AGNES, 1989-11, HA1C, CBCA, 5196-1, 59797-4, 90350-2, 2132-9, 42184-4, 8014-3, 02410-1 #### [facility] ([id number]) [address] [place] [address], [address] [place] [address] Nil Result 0.02 IU/mL Normal [facility] Comment on above: Result Comment: NOTE Test Performed by: [facility] [address] [place] [address] Financial Services Director: Donnie Sanon Ph.D.; CLIA# [id number] Performed By: #### C AGNES, 1989-11, HA1C, CBCA, 5196-1, 36883-8, 63614-3, 2-9, 75977-6, 8014-3, 64755-9 #### [facility] ([id number]) [address] [facility], [address] [place] [address] QuantiFERON-Tb Gold Plus Result Negative Normal Negative [facility] Comment on above: Result Comment: NOTE No [...] #### C AGNES, 1989-11, HA1C, CBCA, 5196-1, 93624-0, 61707-4, 2132-9, 80486-5, 8014-3, 73674-3 #### [facility] ([id number]) [address] [place] [address], [address] [place] [address] TB1 Ag minus Nil Result NEG 0.01 Normal [facility] Comment on above: Performed By: #### C AGNES, 1989-11, HA1C, CBCA, 5196-1, 68108-5, 12176-3, 2132-9, 96328-6, 8014-3, 25582-1 #### [facility] ([id number]) [address] [place] [address], [address] [place] [address] TB2 Ag minus Nil Result NEG 0.01 Normal [facility] Comment on above: Performed By: #### C AGNES, 1989-11, HA1C, CBCA, 5196-1, 39143-1, 09928-4, 2132-9, 48269-9, 8014-3, 44079-5 #### [facility] ([id number]) [address] [place] [address], [address] [place] [address] CBC AND AUTO DIFFon -13-20 24 ABSOLUTE BASOPHIL 0.0 X10E9/L Normal 0.0-0.2 [facility] Comment on above: Performed By: #### C AGNES, 1989-11, HA1C, CBCA, 5196-1, 01628-2, 85658-9, 2132-9, 94345-2, 8014-3, 28136-3 #### [facility] ([id number]) [address] [place] [address], [address] [place] [address] ABSOLUTE NEUTROPHIL 5.5 X10E9/L Normal 1.5-6.6 [facility] Comment on above: Performed By: #### C AGNES, 1989-11, HA1C, CBCA, 5196-1, 66141-3, 23867-2, 2132-9, 03550-6, 8014-3, 33721-9 #### [facility] ([id number]) [address], [address] [place] [address] Basophils/100 WBC (Bld) 0.3 % Normal [facility] Comment on above: Performed By: #### C AGNES, 1989-11, HA1C, CBCA, 5196-1, 23664-7, 98037-2, 2-9, 85065-6, 8014-3, 81707-4 #### [facility] ([id number]) [address], [address] [place] [address] Eosinophils (Bld) [#/Vol] 0.2 10*3/uL Normal 0.0-0.4 [facility] Comment on above: Performed By: #### C AGNES, 1989-11, HA1C, CBCA, 5196-1, 80571-2, 64810-5, 2-9, 26349-6, 8014-3, 49233-2 #### [facility] ([id number]) [address], [address] [place] [address] Eosinophils/100 WBC (Bld) 2.6 % Normal [facility] Comment on above: Performed By: #### C AGNES, 1989-11, HA1C, CBCA, 5196-1, 68388-8, 66747-7, 2132-9, 94861-0, 8014-3, 10111-1 #### [facility] ([id number]) [address], [address] [place] [address] Erythrocyte distribution width (RBC) [Ratio] 13.3 % Normal 11.5-15.0 [facility] Comment on above: Performed By: #### C AGNES, 1987-11, HA1C, CBCA, 5196-1, 24881-3, 95631-7, 2131-9, 66941-4, 8014-3, 38088-7 #### [facility] ([id number]) [address], [address] [place] [address] Hematocrit (Bld) [Volume fraction] 40.5 % Normal 35-47 [facility] Comment on above: Performed By: #### C AGNES, 1989-11, HA1C, CBCA, 5196-1, 86190-4, 98297-0, 2131-9, 74974-6, 8014-3, 79846-4 #### [facility] ([id number]) [address], [address] [place] [address] Hemoglobin (Bld) [Mass/Vol] 14.2 g/dL Normal 11.7-15.5 [facility] Comment on above: Performed By: #### C AGNES, 1989-11, HA1C, CBCA, 5196-1, 63171-5, 94015-2, 2131-9, 05684-3, 8014-3, 03124-0 #### [facility] ([id number]) [address], [address] [place] [address] Lymphocytes (Bld) [#/Vol] 1.3 10*3/uL Normal 1.0-3.5 [facility] Comment on above: Performed By: #### C AGNES, 1989-11, HA1C, CBCA, 5196-1, 56773-7, 04678-0, 2131-9, 05771-9, 8014-3, 07956-1 #### [facility] ([id number]) [address], [address] [place] [address] Lymphocytes/100 WBC (Bld) 18.2 % Normal [facility] Comment on above: Performed By: #### C AGNES, 1989-11, HA1C, CBCA, 5196-1, 76567-7, 54229-0, 2132-9, 13745-7, 8014-3, 69194-6 #### [facility] ([id number]) [address], [address] [place] [address] MCH (RBC) [Entitic mass] 30.7 pg Normal 27-34 [facility] Comment on above: Performed By: #### C AGNES, 1989-11, HA1C, CBCA, 5196-1, 49762-8, 42897-8, 2131-9, 59820-3, 8014-3, 47726-8 #### [facility] ([id number]) [address], [address] [place] [address] MCHC (RBC) [Mass/Vol] 35.2 g/dL Normal 32-36 [facility] Comment on above: Performed By: #### C AGNES, 1989-11, HA1C, CBCA, 5196-1, 67093-6, 15251-7, 2131-9, 37074-8, 8014-3, 22592-0 #### [facility] ([id number]) [address] [facility] [address], [address] [place] [address] MCV (RBC) [Entitic vol] 87 fL Normal 80-100 [facility] Comment on above: Performed By: #### C AGNES, 1989-11, HA1C, CBCA, 5196-1, 88027-9, 62953-7, 2131-9, 17980-8, 8014-3, 66277-6 #### [facility] ([id number]) [address], [address] [place] [address] Monocytes (Bld) [#/Vol] 0.4 10*3/uL Normal 0-0.9 [facility] Comment on above: Performed By: #### C AGNES, 1989-11, HA1C, CBCA, 5196-1, 67772-1, 68760-5, 2132-9, 78183-3, 8014-3, 94454-4 #### [facility] ([id number]) [address], [address] [place] [address] Monocytes/100 WBC (Bld) 5.1 % Normal [facility] Comment on above: Performed By: #### C AGNES, 1989-11, HA1C, CBCA, 5196-1, 87012-0, 84564-9, 2131-9, 75419-7, 8014-3, 60479-7 #### [facility] ([id number]) [address], [address] [place] [address] Neutrophils/100 WBC (Bld) 73.8 % Normal [facility] Comment on above: Performed By: #### C AGNES, 1989-11, HA1C, CBCA, 5196-1, 55460-6, 88333-9, 2131-9, 69210-5, 8014-3, 79006-4 #### [facility] ([id number]) [address], [address] [place] [address] Platelet mean volume (Bld) [Entitic vol] 9.1 fL Normal 7-12 [facility] Comment on above: Performed By: #### C AGNES, 1989-11, HA1C, CBCA, 5196-1, 71883-7, 88619-2, 2131-9, 35183-7, 8014-3, 08493-3 #### [facility] ([id number]) [address], [address] [place] [address] Platelets (Bld) [#/Vol] 254 10*3/uL Normal 150-450 [facility] Comment on above: Performed By: #### C AGNES, 1989-11, HA1C, CBCA, 5196-1, 97903-0, 29519-0, 2131-9, 78631-8, 8014-3, 02812-9 #### [facility] ([id number]) [address] [facility], [address] [place] [address] RBC COUNT 4.63 X10E12/L Normal 3.80-5.20 [facility] Comment on above: Performed By: #### C AGNES, 1989-11, HA1C, CBCA, 5196-1, 78414-8, 16188-0, 2132-9, 47380-5, 8014-3, 66164-0 #### [facility] ([id number]) [address], [address] [place] [address] WBC (Bld) [#/Vol] 7.4 10*3/uL Normal 4.0-11.0 [facility] Comment on above: Performed By: #### C AGNES, 1989-11, HA1C, CBCA, 5196-1, 73288-7, 67432-2, 2131-9, 11001-6, 8014-3, 03331-2 #### [facility] ([id number]) [address], [address] [place] [address] COMPREHENSIVE METABOLIC PANE Jesse 12-11-2023 Albumin [Mass/Vol] 4.3 g/dL Normal 3.2-5.3 [facility] Comment on above: Performed By: #### C AGNES, 1989-11, HA1C, CBCA, 5196-1, 91682-1, 06625-9, 2131-9, 54984-0, 8014-3, 19151-5 #### [facility] ([id number]) [address], [address] [place] [address] ALP [Catalytic activity/Vol] 48 U/L Normal 39-130 [facility] Comment on above: Performed By: #### C AGNES, 1989-11, HA1C, CBCA, 5196-1, 06122-8, 98997-1, 2131-9, 93028-1, 8014-3, 66506-6 #### [facility] ([id number]) [address], [address] [place] [address] ALT [Catalytic activity/Vol] 13 U/L Normal 0-31 [facility] Comment on above: Performed By: #### C AGNES, 1989-11, HA1C, CBCA, 5196-1, 73252-9, 06237-6, 2131-9, 68067-1, 8014-3, 31993-9 #### [facility] ([id number]) [address], [address] [place] [address] Anion gap [Moles/Vol] 10 mmol/L Normal 5-15 [facility] Comment on above: Performed By: #### C AGNES, 1989-11, HA1C, CBCA, 5196-1, 65533-0, 77517-9, 2131-9, 00802-6, 8014-3, 20300-7 #### [facility] ([id number]) [address], [address] [place] [address] AST [Catalytic activity/Vol] 17 U/L Normal 0-41 [facility] Comment on above: Performed By: #### C AGNES, 1989-11, HA1C, CBCA, 5196-1, 10259-3, 33986-8, 2131-9, 42455-5, 8014-3, 64757-3 #### [facility] ([id number]) [address], [address] [place] [address] Bilirubin [Mass/Vol] 0.7 mg/dL Normal 0.3-1.2 [facility] Comment on above: Performed By: #### C AGNES, 1989-11, HA1C, CBCA, 5196-1, 86951-4, 25730-9, 2131-9, 19140-1, 8014-3, 14495-8 #### [facility] ([id number]) [address], [address] [place] [address] Calcium [Mass/Vol] 9.5 mg/dL Normal 8.5-10.5 [facility] Comment on above: Performed By: #### C AGNES, 1989-11, HA1C, CBCA, 5196-1, 84741-6, 08253-8, 2132-9, 45711-3, 8014-3, 13779-2 #### [facility] ([id number]) [address], [address] [place] [address] Chloride [Moles/Vol] 104 mmol/L Normal 98-109 [facility] Comment on above: Performed By: #### C AGNES, 1989-11, HA1C, CBCA, 5196-1, 28656-1, 10523-8, 2-9, 41126-9, 8014-3, 66729-3 #### [facility] ([id number]) [address] [facility] [facility] [address] [place] [address] CO2 [Moles/Vol] 23 mmol/L Normal 22-32 [facility] Comment on above: Performed By: #### C AGNES, 1989-11, HA1C, CBCA, 5196-1, 41403-4, 17330-9, 2132-9, 65857-9, 8014-3, 39639-6 #### [facility] ([id number]) [address] [facility] [facility] [address] [place] [address] Creatinine [Mass/Vol] 0.49 mg/dL Normal 0.40-1.00 [facility] Comment on above: Result Comment: METH OD TRACEABLE TO IDMS STANDARD Performed By: #### C AGNES, 1989-11, HA1C, CBCA, 5196-1, 18424-9, 61369-9, 2-9, 32968-2, 8014-3, 20649-0 #### [facility] ([id number]) [address] [facility] [address] [place] [address] eGFR (CKD-EPI) NON-RACE DEPENDENT >90 Normal >59 [facility] Comment on above: Result Comment: Reported eGFR is based on the CKD-EPI 2020 equation that does not use a race coefficient. Performed By: #### C AGNES, 1989-11, HA1C, CBCA, 5196-1, 78950-1, 55345-4, 2132-9, 70480-4, 8014-3, 82814-4 #### [facility] ([id number]) [address] [place] [address] Glucose [Mass/Vol] 92 mg/dL Normal 65-99 [facility] Comment on above: Performed By: #### C AGNES, 1989-11, HA1C, CBCA, 5196-1, 21314-7, 81480-4, 2131-9, 66147-3, 8014-3, 74366-6 #### [facility] ([id number]) [address] [facility] [place] [address] Potassium [Moles/Vol] 4.1 mmol/L Normal 3.5-5.0 [facility] Comment on above: Performed By: #### C AGNES, 1989-11, HA1C, CBCA, 5196-1, 73429-2, 69873-5, 2131-9, 23428-3, 8014-3, 64744-6 #### [facility] ([id number]) [address] [facility] [address] [place] [address] Protein [Mass/Vol] 7.5 g/dL Normal 6.0-8.0 [facility] Comment on above: Performed By: #### C AGNES, 1989-11, HA1C, CBCA, 5196-1, 29336-8, 18547-7, 2131-9, 67777-1, 8014-3, 77933-9 #### [facility] ([id number]) [address], [address] [place] [address] Sodium [Moles/Vol] 137 mmol/L Normal 134-146 [facility] Comment on above: Performed By: #### C AGNES, 1989-11, HA1C, CBCA, 5196-1, 47555-5, 27704-4, 2131-9, 79343-0, 8014-3, 28681-3 #### [facility] ([id number]) [address], [address] [place] [address] Urea nitrogen [Mass/Vol] 6 mg/dL Normal 5-23 [facility] Comment on above: Performed By: #### C AGNES, 1989-11, HA1C, CBCA, 5196-1, 97319-7, 63130-3, 2131-9, 25296-9, 8014-3, 92711-8 #### [facility] ([id number]) [address], [address] [place] [address] CRP [Mass/Vol]on 12-11-2023 C REACTIVE PROTEIN 0.5 mg/dL Normal 0.000-0.744 [facility] Comment on above: Performed By: #### C AGNES, 1989-11, HA1C, CBCA, 5196-1, 04803-6, 31740-4, 9, 32773-1, 8014-3, 93569-3 #### [facility] ([id number]) [address], [address] [place] [address] HBV surface Ag IA Qlon 12-10 HEPATITIS B SURF AG Negative Normal NEG [facility] Comment on above: Performed By: #### C AGNES, 1989-11, HA1C, CBCA, 5196-1, 51424-6, 72040-2, 9, 23016-5, 8014-3, 88785-1 #### [facility] ([id number]) [address], [address] [place] [address] HCV Ab IA Qlon 12-11-2023 ANTI HCV W/PCR REFLX Non-Reactive Normal NRCT Pr [facility] Comment on above: Result Comment: If recent infection suspected, recommend repeat testing (>2 months). Mrpefg-zo-lmvtef ratio is <0.80. Performed By: #### C AGNES, 1989-11, HA1C, CBCA, 5196-1, 76569-6, 53177-6, 2131-9, 63637-2, 8014-3, 14169-9 #### [facility] ([id number]) [address] [place] [address], [address] [place] [address] HGB A1C (GLYCO-HGB)on 2023 Glucose [Mass/Vol] 103 mg/dL Normal [facility] Comment on above: Performed By: #### C AGNES, 1989-11, HA1C, CBCA, 5196-1, 74723-3, 00526-4, 2131-9, 47286-2, 8014-3, 32930-4 #### [facility] ([id number]) [address] [place] [address], [facility] [address] [place] [address] HbA1c (Bld) [Mass fraction] 5.2 % Normal 4.4-5.6 [facility] Comment on above: Result Comment: NOTE ADA Guidelines Result HgbA1c Normal : less than 5.7 % Prediabetes : 5.7 % to 6.4 % Diabetes : > 6.4 % Use with caution in patients with abnormal hemoglobin variants as the half-life of red blood cells and in vivo glycation rates are affected. Performed By: #### C AGNES, 1989-11, HA1C, CBCA, 5196-1, 14454-9, 93881-1, 2131-9, 45631-4, 8014-3, 51264-6 #### [facility] ([id number]) [address] [facility], [address] [place] [address] HIV 1+2 Ab+HIV1 p24 Ag IA Ql on 12-11-2023 HIV 1 and 2 Ab/Ag Screen Non-Reactive Normal NRCT [facility] Comment on above: Result Comment: This information [...] #### C AGNES, 1989-11, HA1C, CBCA, 5196-1, 38325-8, 63720-1, 9, 96678-3, 8014-3, 10181-5 #### [facility] ([id number]) [address] [place] [address], [address] [place] [address] Rubella virus IgG Qn (S)on 12-11-2023 RUBELLA IgG 30 IU/mL Normal [facility] Comment on above: Result Comment: Interpretation-------- <8 NEGATIVE-considered Not Immune 8-9 EQUIVOCAL-consider retesting with new specimen >9 POSITIVE-considered Immune Performed By: #### Clyde ALARCON, 1989-11, HA1C, CBCA, 5196-1, 29313-3, 61287-3, 9, 84224-5, 8014-3, 07041-7 #### [facility] ([id number]) [address] [place] [address], [address] [place] [address] T. pallidum IgG+IgM IA Ql (S )on 12-11-2023 Syphilis Total <0.2 Normal 0.0-0.8 [facility] Comment on above: Result Comment: NON REACTIVE No serologic evidence of infection to Treponema pallidum (syphilis). Repeat testing may be considered in patients with suspected acute or primary syphilis in 2 to 4 weeks. Performed By: #### Clyde ALARCON, 1989-11, HA1C, CBCA, 5196-1, 98522-6, 87166-6, 2131-9, 59049-0, 8014-3, 38492-6 #### [facility] ([id number]) [address] [facility], [address] [place] [address] VITAMIN B12on 12-11-2023 Cobalamin (Vitamin B12) [Mass/Vol] 142 pg/mL Low 180-914 [facility] Comment on above: Performed By: #### C AGNES, 1989-11, HA1C, CBCA, 5196-1, 63048-1, 58904-6, 9, 22442-6, 8014-3, 75842-0 #### [facility] ([id number]) [address] [facility], [address] [place] [address] Vitamin D+Metabolites [Mass/ Vol]on 12-11-2023 VITAMIN D 25 HYD TOT 21.8 ng/mL Low 30-100 [facility] Comment on above: Result Comment: Vitamin D status 25 [place] Vitamin D Deficiency <20 ng/mL Insufficiency 20-29 ng/mL Sufficiency 30-100 ng/mL Toxicity >100 ng/mL NOTE: A pediatric reference range has not been established by the bed laster of this kit. The [place] [employer] recommends a Vitamin D level of = or >20ng/mL in infants and children. Performed By: #### C , 1989-11, HA1C, CBCA, 5196-1, 34414-6, 70343-7, 9, 80671-8, 8014-3, 84947-8 #### [facility] ([id number]) [address] [facility], [address] [place] [address] SARS/FLU A+B/RSV by NAAT/Mol ecularon 10-08-2023 SARS/FLU [...] operators who are performing tests using either [employer] or [employer] systems and is limited to laboratories that [...] repeat. Fact Sheet for Healthcare Providers: https://www.fda.gov/media /114639/download Fact Sheet for Patients: https://www.fda.gov/media /246088/download [facility] Comment on above: Performed By: #### C OVAKR #### [facility] ([id number]) [address] [place] [address], [place] [address] Consultation Noteon 12-18-19 20 Consultation Note [id number]#[id number]:12 7 Normal [facility] Ambulatory Patient Education on 06-04-2018 Ambulatory Patient Education Patient Education MaterialsName: Comfort Maldonado Current Date: 06/04/2018 11:43:12 [place] 1995 following sheet(s) are the Patient Education Leaflets for Comfort Maldonado Normal [facility] Gastroenterology Office/Clin ic Noteon 06-04-2018 Gastroenterology [...] her being referred to Dr. Bowers at [facility] in [place]. She states that she had a colonoscopy [...] Endoscopy history: Colonoscopy done on 04/17/2018 at [facility] Constitutional: 45 pound weight loss since September [...] she was placed on steroids at the [facility] GI physician. She states that she is [...] MD 06/05/18 15:58 EST Normal [facility] Vital Signs Date Time Vital Sign Value Performing Clinician Facility 05-16-2024 09:01-0400 Body weight 70.67 kg Sherry Horan Jeeran Work Phone: [facility] 05-16-2024 09:01-0400 Diastolic blood pressure 64 mm[Hg] Sherry Aung DO Work Phone: [facility] 05-16-2024 09:01-0400 Systolic blood pressure 120 mm[Hg] Sherry Aung DO Work Phone: [facility] 05-15-2024 16:05-0400 Diastolic blood pressure 72 mm[Hg] [facility] 05-15-2024 16:05-0400 Heart rate 93 /min [address] 05-15-2024 16:05-0400 Systolic blood pressure 110 mm[Hg] [address] 05-02-2024 09:35-0400 Body weight 68.58 kg Sayra BROWN Work Phone: [facility] 05-02-2024 09:35-0400 Diastolic blood pressure 68 mm[Hg] Sayra BROWN Work Phone: [facility] 05-02-2024 09:35-0400 Systolic blood pressure 110 mm[Hg] Sayra BROWN Work Phone: [facility] 10-25-2023 11:28-0400 Body temperature 99.1 [degF] [facility] 2 [facility] 10-25-2023 11:28-0400 Diastolic blood pressure 62 mm[Hg] [facility] 2 [facility] 10-25-2023 11:28-0400 Heart rate 74 /min [facility] 2 [facility] 10-25-2023 11:28-0400 Respiratory rate 18 /min [facility] 2 [facility] 10-25-2023 11:28-0400 Systolic blood pressure 97 mm[Hg] [facility] 2 [facility] 10-25-2023 08:54-0400 Body mass index (BMI) [Ratio] 25.32 kg/m2 [facility] 2 [facility] 10-25-2023 08:54-0400 Body weight 60.[address] [facility] 2 [facility] 08-30-2023 11:44-0500 Body temperature 98.2 [degF] [facility] 1 [facility] 08-30-2023 11:44-0500 Diastolic blood pressure 68 mm[Hg] [facility] 1 [facility] 08-30-2023 11:44-0500 Heart rate 73 /min [facility] 1 [facility] 08-30-2023 11:44-0500 SaO2% (BldA) [Mass fraction] 98 % [facility] [facility] 1 [facility] 08-30-2023 11:44-0500 Systolic blood pressure 99 mm[Hg] [facility] 1 [facility] 08-30-2023 09:00-0500 Body mass index (BMI) [Ratio] 26.38 kg/m2 [facility] 1 [facility] 08-30-2023 09:00-0500 Body weight 63.[address] 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 Start: 05-16-2024 End: 05-16-2024 Bamboo flowsheet Sherry Aung DO Work Phone: [facility] Start: 05-16-2024 End: 05-16-2024 Bamboo flowsheet Sherry Aung DO Work Phone: [facility] Start: 05-16-2024 End: 05-16-2024 Office outpatient visit 15 minutes Sherry Aung DO Work Phone: [facility] Comment on above: 32 weeks gestation o f ; Third trimester Start: 05-16-2024 End: 05-16-2024 ambulatory SHERRY AUNG Not Available Start: 05-15-2024 End: 05-15-2024 Orders Only Jenni Owen CMA Maternal- Medicine at [facility] Comment on above: growth restric tion antepartum [...] Not Available Start: 04-30-2024 End: 04-30-2024 ambulatory [facility] Start: 04-17-2024 End: 04-17-2024 ambulatory [facility] Start: 04-10-2024 End: 04-10-[address] [facility] Start: 04-04-2024 End: 04-04-2024 [facility] Start: 04-02-2024 End: 04-02-2024 ambulatory [facility] Start: 03-29-2024 End: 03-29-2024 ambulatory [facility] Start: 03-28-2024 End: 03-28-[address] [facility] Start: 03-28-2024 End: 03-28-2024 ambulatory [facility] Start: 03-19-2024 End: 03-19-2024 ambulatory YADIRA CHAU [facility] Start: 03-05-2024 End: 03-05-2024 ambulatory SAYRA ANDREWS Not Available Start: 02-29-2024 End: 02-29-2024 ambulatory SURESH Noa HOTXJean [facility] Start: 02-20-2024 End: 02-20-2024 [facility] Start: 02-14-2024 End: 02-14-2024 ambulatory PREMA ABRAHAM [facility] Start: 02-06-2024 End: 02-06-2024 ambulatory SHERRY AUNG Not Available Start: 01-09-2024 End: 01-09-2024 ambulatory SHERRY AUNG Not Available Start: 12-20-2023 End: 12-20-2023 ambulatory PREMA ABRAHAM [facility] Start: 12-11-2023 End: 12-11-2023 ambulatory SHERRY R AUNG [facility] Start: 12-08-2023 End: 12-08-2023 ambulatory SHERRY AUNG Not Available Start: 11-30-2023 End: 11-30-2023 ambulatory SURESH DIAZ [facility] Start: 10-25-2023 End: 10-25-[address] [facility] Dh Infusion Chair 2 [facility] Comment on above: Crohn's disease of s mall and large intestines with complication ([facility]-HCC) (Primary Dx) Start: 10-24-2023 Telephone encounter Amanda [facility] Start: 10-08-2023 End: 10-08-2023 Emergency department patient visit PREMA ABRAHAM [facility] Start: 08-30-2023 End: 08-30-2023 ambulatory [facility] Infusion Chair 1 [facility] Comment on above: Crohn's disease of s mall and large intestines with complication ([facility]-HCC) (Primary Dx) Start: 09-17-2019 End: 09-18-2019 Patient encounter procedure PREMA ABRAHAM Facility:[facility] Start: 06-04-2018 End: 06-05-2018 Patient encounter procedure Trang Harrison Facility:[facility] Procedures Date Procedure Procedure Detail Performing Clinician Start: 05-16-2024 Urnls dip stick/tabl et rgnt non-auto w/o micrscp Sherry Aung DO Work Phone: Start: 05-15-2024 nonstress test Na colin Roman MD Work Phone: Start: 02-06-2024 Microscopic observat ion [Identifier] in Cervix by Cyto stain Jenni Owen [facility] Start: 11-30-2023 Follow-up visit Follow-up SURESH DIAZ Start: 11-11-2021 Microscopic observat ion [Identifier] in Cervix by Cyto stain [facility] 1 Start: 03-04-2021 Adult depression scr eening assessment [facility] 1 Start: 04-14-2020 H/O: colostomy Colostomy status [facility] 1 Start: 12-03-2019 H/O: ileostomy Ileostomy status 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 Expected: 05/17/2025 (Approximate), Expires: 05/17/2025 [employer] Work Phone: Comment on above: Expected: 05/17/2025 (Approximate), Expires: 05/17/2025 Start: 05-15-2025 Tobacco Screening Tobacco Screening [facility] [employer] [facility] Start: 04-17-2025 Adult BMI Screening Adult BMI Screen ing [facility] [employer] [facility] Start: 11-11-2024 Screening for malign ant neoplasm [facility] Start: 10-24-2024 Adult BMI Screening Adult BMI Screen ing [facility] [employer] [facility] Start: 10-07-2024 Tobacco [facility] Start: 08-30-2024 Adult BMI Screening [facility] Start: 06-11-2024 End: 06-11-2024 Patient encounter procedure [facility] Start: 06-05-2024 End: 06-05-2024 ambulatory 06/05/2024 9:00 AM EST Infusion [facility] [address] [id number] [facility] Start: 06-03-2024 End: 06-03-2024 Patient encounter procedure 06/03/2024 8:30 AM EST Routine [facility] [address] [place] [phone] Sherry Horan DO [address] [place] [address] [facility] Start: 05-30-2024 End: 05-30-2024 Patient encounter procedure 05/30/2024 3:00 PM EDT Appointment [facility] [address] [place] [phone] [facility] Start: 05-16-2024 End: 05-16-2024 Patient encounter procedure [facility] Comment on above: Arrived Start: 05-10-2024 Tobacco Screening Tobacco Screening [facility] Start: 05-02-2024 End: 05-02-2024 Patient encounter procedure 05/02/2024 9:30 AM EDT Routine [facility] [address] [place] [address] Sayra Andrews PA [address] [place] [address] Arrived [facility] Comment on above: Arrived Start: 03-31-2024 Influenza vaccination Influenza Vacc ine [facility] Start: 12-20-2023 End: 12-20-2023 ambulatory 12/20/2023 9:00 AM EDT Infusion [facility] [address] [place] [phone] [facility] Start: 11-30-2023 End: 11-30-2023 Patient encounter procedure 11/30/2023 9:30 AM EDT Office Visit [facility] [address] [place] [phone] Suresh Diaz MD [address] [place] [address] [facility] Start: 10-25-2023 End: 10-25-2023 ambulatory 10/25/2023 9:00 AM EDT Infusion [facility] [address] [place] [phone] [facility] Start: 03-31-2023 Influenza vaccination Influenza Vacc ine [facility] Start: 03-04-2022 Depression Screening Depression Scre ening [facility] Start: 2012 DTaP,Tdap and Td Vaccines (1 - Tdap) DTaP,Tdap and Td Vaccines (1 - Tdap) [facility] Start: 2011 Adult BMI Follow Up Plan Adult BMI Follow Up Plan [facility] Start: 2005 Depression Screening Depression Scre ening [facility] End: 10-24-2024 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[employer] Lab Routine Crohn's disease of small and large intestines with complication ([facility]-HCC) 1 Occurrences starting 10/25/2023 until 10/24/2024 [facility] Work Phone: Comment on above: 1 Occurrences starti ng 10/25/2023 until 10/24/2024 Payers Date Payer Category Payer Medicaid [id number] 2022 Medicaid [id number] 1993 Unknown [id number] 2.16.8 40.1.696444.3.579.2.196 1993 Unknown [id number] 2.16.84 0.1.945561.3.579.2.593 1993 Unknown [id number] 2.16.8 40.1.885371.3.579.2.1286 1993 Unknown [id number] 2.16.8 40.1.407158.3.579.2.1286 1993 Unknown [id number] 2.16.8 40.1.794799.3.579.2.1285 1993 Unknown [id number] 2.16.8 40.1.462072.3.579.2.1285 1993 Unknown [id number] 2.16.8 40.1.825249.3.579.2.1285 1993 Unknown [id number] 2.16.8 40.1.988426.3.579.2.1285 1993 Unknown [id number] 2.16.8 40.1.288465.3.579.2.1285 1993 Unknown [id number] 2.16.8 40.1.929152.3.579.2.1285 1993 Unknown [id number] 2.16.8 40.1.180724.3.579.2.1285 1993 Unknown [id number] 2.16.8 40.1.712622.3.579.2.1285 1993 Unknown [id number] 2.16.8 40.1.793746.3.579.2.1285 1993 Unknown [id number] 2.16.8 40.1.860062.3.579.2.1285 1993 Unknown [id number] 2.16.8 40.1.250012.3.579.2.1285 1993 Unknown [id number] 2.16.8 40.1.318200.3.579.2.1285 1993 Unknown [id number] 2.16.8 40.1.454133.3.579.2.1285 1993 Unknown [id number] 2.16.8 40.1.290341.3.579.2.1285 1993 Unknown [id number] 2.16.8 40.1.252313.3.579.2.1285 1993 Unknown [id number] 2.16.8 40.1.142484.3.579.2.1286 1993 Unknown [id number] 2.16.8 40.1.294839.3.579.2.1286 1993 Unknown [id number] 2.16.8 40.1.930724.3.579.2.1286 1993 Unknown [id number] 2.16.8 40.1.944775.3.579.2.1286 1993 Unknown [id number] 2.16.8 40.1.191079.3.579.2.1286 1993 Unknown [id number] 2.16.84 0.1.553398.3.579.2.1259 1993 Unknown [id number] 2.16.84 0.1.434875.3.579.2.1259 1993 Unknown [id number] 2.16.84 0.1.020544.3.579.2.9 1993 Unknown [id number] 2.16.84 0.1.344197.3.579.2.1259 1993 Unknown [id number] 2.16.84 0.1.030946.3.579.2.1259 1993 Unknown [id number] 2.16.84 0.1.564704.3.579.2.1259 1993 Unknown [id number] 2.16.84 0.1.331122.3.579.2.1259 1959 Self-pay [id number] 07-31-1799 Self-pay Social History Date Type Detail Facility Start: 07-05-2022 End: 12-08-2023 Tobacco smoking status MEIS Never smoked tobacco [facility] Start: 07-05-2022 End: 12-08-2023 Tobacco use and exposure Smokeless tobacco non-user [facility] Start: 05-10-2023 End: 10-08-2023 Alcohol intake Current drinker of alcohol (finding) [facility] Start: 08-10-2020 End: 05-10-2023 Alcohol intake [facility] Start: 08-06-2020 End: 08-10-2020 Social connection and isolation panel [facility] Do you belong to any clubs or organizations such as zoroastrian groups, unions, fraternal or athletic groups, or school groups? No [facility] Are you now , , , , never or living with a partner? [facility] How often to you hav e a drink containing alcohol? 2-4 times a month [facility] Average Number of Drinks Not on file [facility] Do you feel stress - tense, restless, nervous, or anxious, or unable to sleep at night because your mind is troubled all the time - these days [OSQ] Only a little [facility] Start: 12-22-2021 Alcohol Comment socially [facility] Start: 1993 Sex Assigned At Not on file P [facility] Start: 05-02-2024 End: 05-15-2024 Alcoholic beverage intake Ex-drinker (finding) [facility] Start: 10-17-2023 [facility] Start: 10-16-2019 Sex Female (finding) [facility] Goals Date Patient Goal Desired Activity /State Personal health goal Comment on above: Formatting of this n ote might be different from the original. Evaluation of progress towards goal: Patient plans to return home with [facility] Clinical Notes 08-30-2023 to 05-16-2024 Paddy Garza [...] nursing note reviewed. Exam conducted with a pastrycook's assistant present. Vitals: There is no height or [...] Estimated Date of Delivery: 07/09/24. Discussed recent [facility] appointment with patient and delivery due to SGA & Crohn's Disease. Nursing will obtain office note from MFM appointment yesterday. Patient given order to have NST/BPP done locally at [facility]. Documented by Paddy Garza LPN on behalf of: Sherry Horan DO documented in this encounter [facility] 05-15-2024 History of Presen t illness Narrative [...] all scheduled appointments documented in this encounter [facility] 05-02-2024 History of Presen t [...] of: STEPHANIE Thorne documented in this encounter [facility] 10-25-2023 History of Presen t illness Narrative 0900 Patient here for Avsola infusion. Patient denies any recent infections, open wounds, recent/future surgery, or insurance changes . IV started with 22g needle to right AC by paddy gill x 1 attempt . Patient tolerated well. Avsola x 2 vials, lot# [id number], exp date Avsola x 1 vial, lot# [id number], exp date 02/27/2027 Time out performed with [...] of info given. [facility] 10-24-2023 Miscellaneous Notes Formattin g of this note might be different from the original. Patient currently receiving Avsola 5mg/kg every 8 weeks. However due to bed laster delay we are unable to obtain medication. Prior auth request forms completed for Remicade 5mg/kg to be given every 56 days, faxed to [phone] Remicade approved for 5mg/kg (400mg) for 7 visits from 10/25/2023-10/23/2024. Auth # [id number] Referral placed. Therapy plan updated. Flowsheet updated. [facility] 10-24-2023 Telephone encount er Note Patient currently receiving Avsola 5mg/kg every 8 weeks. However due to bed laster delay we are unable to obtain medication. Prior auth request forms completed for Remicade 5mg/kg to be given every 56 days, faxed to [phone] [facility] 10-24-2023 Telephone encount er Note Remicade approved for 5mg/kg (400mg) for 7 visits from 10/25/2023-10/23/2024. Auth # [id number] Referral placed. Therapy plan updated. Flowsheet updated. [facility] 08-30-2023 History of Presen t illness Narrative 0906 Patient here for Avsola infusion. Patient denies any recent infections, open wounds, recent/future surgery, or insurance changes . Site cleansed with alcohol. IV started with 22g needle by Juan M GILL in right antecube. Patient tolerated well. 1142 patient infusion complete. IV discontinued at 1142. Patient tolerated infusion well. documented in this encounter [facility] Evaluation note Diagnosis Crohn's disease of small and large intestines with complication (CMS-HCC)- Primary documented in this encounter [facility]* Diagnosis Crohn's disease of small and large intestines with complication (CMS-HCC)- Primary documented in this encounter [facility]* Diagnosis 30 weeks gestation of - Primary Third trimester state, incidental documented in this encounter [facility]* Diagnosis Crohn's disease of both small and large intestine with intestinal obstruction (CMS-HCC)- Primary growth restriction antepartum growth restriction antepartum- Primary documented in this encounter [facility]* Diagnosis Crohn's disease of both small and large intestine with intestinal obstruction (CMS-HCC)- Primary growth restriction antepartum documented [facility] encounter [facility]* Diagnosis 32 weeks gestation of [...] Health SystemInstructionsNot on filedocumented in this encounter [facility] Summary Purpose Family History No [...] content) DATE CREATED AUTHOR 07/08/[address] [facility] DATE CREATED AUTHOR AUTHOR'S ORGANIZ ATION 09/20/2019 [facility] DATE CREATED AUTHOR AUTHOR'S ORGANIZ ATION 12/18/2019 [facility] DATE CREATED AUTHOR AUTHOR'S ORGANIZ ATION 04/03/2024 [facility] DATE CREATED AUTHOR AUTHOR'S ORGANIZ ATION 04/12/2024 [facility] DATE CREATED AUTHOR AUTHOR'S ORGANIZ ATION 05/18/2024 [facility] DATE CREATED AUTHOR AUTHOR'S ORGANIZ ATION 05/18/2024 [facility] dical Specialists EPIC Reason for Visit (unrecogniz ed section and content) Reason Comments Outpatient Infusion [facility] Specialty Diagnoses / Procedures Referred By Theodore kohli Referred To Contact Gastroenterology Diagnoses Crohn's disease of both small and large intestine with unspecified complications Renflexis 400mg q8 weeks, 7 visits, 02.02.23 - 02.02.24, HK/CF, Crohn's Procedures INJECTION, INFLIXIMAB-AXXQ, BIOSIMILAR, (AVSOLA), 10 [place] [address] [place] [address] [facility] [address] [place] [address] Referral ID Status Reason Start Date Expiration Date V isits Requested Visits Authorized [id number] Authorized 02/02/2023 02/02/2024 7 7 Reason Comments Outpatient Infusion [facility] Reason Comments Routine Visit Reason Comments add on NST for [facility] Specialty Diagnoses / Procedures Referred By Contac t Referred To Contact Maternal and Medicine Diagnoses growth restriction antepartum Procedures nonstress test - Maternal Medicine Devyn Roman MD [address] [facility] [place], [address] [place] [address] Phone: tel: fax: Maternal- Medicine at [address] [place] [address] Phone: tel: fax: Referral ID Status Reason Start Date Expiration Date V isits Requested Visits Authorized [id number] Pending Review 05/15/2024 05/15/2025 1 1 Care Teams (unrecognized sec tion and content) Osteopathic Physician Relationship Specialty Start Date End Date Prema Abraham MD [address] [place], [place] [id number] PCP - General Family Medicine 12/17/19 Osteopathic Physician Relationship Specialty [place] [address] [place] [address] PCP - General Family Medicine 10/08/23 Osteopathic Physician Relationship Specialty [place] [address] [place] [address] PCP - General Family Medicine 10/08/23 Osteopathic Physician Relationship Specialty Start Date End Date Prema Abraham MD [address] [place] [address] PCP - General Family Medicine 02/29/24 Osteopathic Physician Relationship Specialty Start Date End Date Prema Abraham MD [address] [place] [address] PCP - General Family Medicine 02/29/24 Osteopathic Physician Relationship Specialty Start Date End Date Prema Abraham MD [address] [place], [place] [phone] PCP - General Family Medicine 02/29/24 FOR [...] BE BASED ON THE PRIMARY CLINICAL RECORDS. [employer] provides no warranty or guarantee of the accuracy or completeness of information in this document.
[2024-05-24 15:18] VITALS: BP 123/75; PULSE 97
== END 2024-05-24 15:55 | disposition home or self-care (01) ==
LOC: FBCO 07:15 → FBC 15:12
PROVIDERS: PCP Family Medicine; Visit Provider Obstetrics & Gynecology
DX: O36.5930 Maternal care for other known or suspected poor fetal growth, third trimester, not applicable or unspecified (principal)
CPT/HCPCS: 59025

== ENCOUNTER 2024-05-28 07:10 | Outpatient (OUT) | payer MEDICAID, SELFPAY ==
--- OUTSIDE RECORDS SUMMARY | 2024-05-28 07:13 | XMS_ITS | CCD ---
Author Organization [facility] Care Team Providers Care Nut Roaster Name Role Phone Trang Harrison Unavailable Unavailable Prema Abraham Unavailable Unavaila PREMA Mahan Admitting Unavailable PREMA ABRAHAM Attending Unavailable PREMA ABRAHAM Primary Care Unavailable ALLISON TOWNSEND V Consulting Unavailable PREMA ABRAHAM Consulting Unavailable Prema Abraham MD Primary Care Provider [phone] Prema Abraham MD Primary Care Provider PREMA ABRAHAM Primary Care Unavailable SHERRY HORAN Referring Unavailable PREMA ABRAHAM Referring Unavailable PREMA ABRAHAM Primary Care Unavailable PREMA ABRAHAM Referring Unavailable PREMA ABRAHAM Primary Care Unavailable SURESH DIAZ Referring Unavailable Unavailable Primary Care Provider UnavailPrema Sheriff MD Primary Care Provider [phone] PREMA ABRAHAM Referring Unavailable PREMA ABRAHAM Primary Care Unavailable SURESH DIAZ Attending Unavailable PREMA ABRAHAM Referring Unavailable PREMA ABRAHAM Primary Care Unavailable PREMA ABRAHAM Referring Unavailable SHERRY HORAN Referring Unavailable EDVYN ROMAN Attending Unavailable JANNA MACDONALD Referring Unavailab [...] Unavailable ABRAHAM, PREMA E Primary Care Unavailable UANG, SHERRY R Referring Unavailable ABRAHAM, PREMA E Primary Care Unavailable ARBAHAM, PREMA E Referring Unavailable ABRAHAM, PREMA E [...] UA Negative Negative - 4(70) +++ mg/dL [facility] Blood, UA Positive Negative - 50 Kal/mcL [facility] Comment on above: trace-intact Clarity, UA Clear [facility] Color, UA Yellow [facility] Glucose, UA Negative Negative - 1999(110) ++++ mg/dL [facility] Interpretation and review of laboratory results Abnormal [facility] Ketones, UA Negative Negative - 160(16) ++++ mg/dL [facility] Leukocytes, UA Negative Negative - 500+++ Sandra/mcL [facility] Nitrite, UA Negative Negative - Positive [facility] pH, UA 6 5 - 9 [facility] Protein, UA Negative Negative - 2000(20) ++++ mg/dL [facility] Spec Grav, UA 1.025 1 - 1.03 [facility] Urobilinogen, UA 0.2 0.2 - 12 mg/dL [facility] No Panel Informationon 05-15 Patient Name: Kishor Maldonado Patient : 1995 NST Objective Findings: Variability: Moderate Decelerations: None Accelerations: Yes Acoustic Stimulator: No Baseline: 130 BPM Uterine Irritability: Yes Contractions: Not present Comments: Uterine irritability noted, intercourse this morning. [facility] instructions/handout and labor precautions reviewed. NST Interpretation: Nonstress Test Interpretation: Reactive (Devyn Roman MD) NST performed by: Aislinn Richardson RN 05/15/2024 4:30 PM [facility] M. tuberculosis stim IFN-g p venkat (Bld)on 03-29-2024 Mitogen minus Nil Result 1.22 IU/mL Normal [facility] Comment on above: Performed By: #### C AGNES, 1989-11, HA1C, CBCA, 5196-1, 20702-4, 92252-5, 2132-9, 11996-3, 8014-3, 53530-2 #### [facility] ([id number]) [address] [place] [address], [address] [place] [address] Nil Result 0.02 IU/mL Normal [facility] [place] Comment on above: Result Comment: NOTE Test Performed by: [facility] [address] [place] [address] Breadman: Donnie Sanon Ph.D.; CLIA# [id number] Performed By: #### C AGNES, 1989-11, HA1C, CBCA, 5196-1, 35086-7, 38311-0, 2-9, 61413-8, 8014-3, 53926-8 #### [facility] ([id number]) [address] [facility], [address] [place] [address] QuantiFERON-Tb Gold Plus Result Negative Normal Negative [facility] [place] Comment on above: Result Comment: NOTE No [...] #### C AGNES, 1989-11, HA1C, CBCA, 5196-1, 53909-3, 42786-1, 2132-9, 84397-6, 8014-3, 03148-8 #### [facility] ([id number]) [address] [place] [address], [address] [place] [address] TB1 Ag minus Nil Result NEG 0.01 Normal [facility] [place] Comment on above: Performed By: #### C AGNES, 1989-11, HA1C, CBCA, 5196-1, 67876-6, 78074-7, 2132-9, 88911-7, 8014-3, 84161-4 #### [facility] ([id number]) [address] [place] [address], [address] [place] [address] TB2 Ag minus Nil Result NEG 0.01 Normal [facility] Comment on above: Performed By: #### C AGNES, 1989-11, HA1C, CBCA, 5196-1, 23295-5, 65734-8, 2132-9, 19642-5, 8014-3, 11685-3 #### [facility] ([id number]) [address] [place] [address], [address] [place] [address] CBC AND AUTO DIFFon -13-20 24 ABSOLUTE BASOPHIL 0.0 X10E9/L Normal 0.0-0.2 [facility] Comment on above: Performed By: #### C AGNES, 1989-11, HA1C, CBCA, 5196-1, 63499-7, 16904-9, 2132-9, 68551-2, 8014-3, 61865-9 #### [facility] ([id number]) [address] [place] [address], [address] [place] [address] ABSOLUTE NEUTROPHIL 5.5 X10E9/L Normal 1.5-6.6 [facility] Comment on above: Performed By: #### C AGNES, 1989-11, HA1C, CBCA, 5196-1, 53328-6, 86653-9, 2132-9, 33107-6, 8014-3, 18397-7 #### [facility] ([id number]) [address], [address] [place] [address] Basophils/100 WBC (Bld) 0.3 % Normal [facility] [place] Comment on above: Performed By: #### C AGNES, 1989-11, HA1C, CBCA, 5196-1, 17836-1, 67906-1, 2-9, 41683-7, 8014-3, 02490-3 #### [facility] ([id number]) [address], [address] [place] [address] Eosinophils (Bld) [#/Vol] 0.2 10*3/uL Normal 0.0-0.4 [facility] [place] Comment on above: Performed By: #### C AGNES, 1989-11, HA1C, CBCA, 5196-1, 20141-1, 26592-7, 2-9, 00276-2, 8014-3, 45770-7 #### [facility] ([id number]) [address], [address] [place] [address] Eosinophils/100 WBC (Bld) 2.6 % Normal [facility] [place] Comment on above: Performed By: #### C AGNES, 1989-11, HA1C, CBCA, 5196-1, 08967-5, 24382-7, 2132-9, 37772-1, 8014-3, 39621-3 #### [facility] ([id number]) [address], [address] [place] [address] Erythrocyte distribution width (RBC) [Ratio] 13.3 % Normal 11.5-15.0 [facility] [place] Comment on above: Performed By: #### C AGNES, 1989-11, HA1C, CBCA, 5196-1, 92476-4, 85299-8, 2131-9, 40207-6, 8014-3, 10651-7 #### [facility] ([id number]) [address], [address] [place] [address] Hematocrit (Bld) [Volume fraction] 40.5 % Normal 35-47 [facility] [place] Comment on above: Performed By: #### C AGNES, 1989-11, HA1C, CBCA, 5196-1, 73123-1, 09624-9, 2131-9, 15176-9, 8014-3, 97865-0 #### [facility] ([id number]) [address], [address] [place] [address] Hemoglobin (Bld) [Mass/Vol] 14.2 g/dL Normal 11.7-15.5 [facility] [place] Comment on above: Performed By: #### C AGNES, 1989-11, HA1C, CBCA, 5196-1, 97494-3, 42354-2, 2131-9, 23644-1, 8014-3, 62113-0 #### [facility] ([id number]) [address], [address] [place] [address] Lymphocytes (Bld) [#/Vol] 1.3 10*3/uL Normal 1.0-3.5 [facility] [place] Comment on above: Performed By: #### C AGNES, 1989-11, HA1C, CBCA, 5196-1, 46384-7, 97627-4, 2131-9, 45241-3, 8014-3, 18754-2 #### [facility] ([id number]) [address], [address] [place] [address] Lymphocytes/100 WBC (Bld) 18.2 % Normal [facility] [place] Comment on above: Performed By: #### C AGNES, 1989-11, HA1C, CBCA, 5196-1, 87480-9, 35313-2, 2132-9, 85568-9, 8014-3, 73980-6 #### [facility] ([id number]) [address], [address] [place] [address] MCH (RBC) [Entitic mass] 30.7 pg Normal 27-34 [facility] [place] Comment on above: Performed By: #### C AGNES, 1989-11, HA1C, CBCA, 5196-1, 24634-7, 99534-9, 2131-9, 24703-9, 8014-3, 39343-7 #### [facility] ([id number]) [address] [facility], [address] [place] [address] MCHC (RBC) [Mass/Vol] 35.2 g/dL Normal 32-36 [facility] [place] Comment on above: Performed By: #### C AGNES, 1989-11, HA1C, CBCA, 5196-1, 72761-9, 20778-8, 2131-9, 47806-5, 8014-3, 06117-1 #### [facility] ([id number]) [address] [facility], [address] [place] [address] MCV (RBC) [Entitic vol] 87 fL Normal 80-100 [facility] Comment on above: Performed By: #### C AGNES, 1989-11, HA1C, CBCA, 5196-1, 38532-6, 38077-2, 2131-9, 52875-3, 8014-3, 10645-9 #### [facility] ([id number]) [address], [address] [place] [address] Monocytes (Bld) [#/Vol] 0.4 10*3/uL Normal 0-0.9 [facility] [place] Comment on above: Performed By: #### C AGNES, 1989-11, HA1C, CBCA, 5196-1, 47403-6, 68363-7, 2132-9, 76140-8, 8014-3, 28324-5 #### [facility] ([id number]) [address], [address] [place] [address] Monocytes/100 WBC (Bld) 5.1 % Normal [facility] Comment on above: Performed By: #### C AGNES, 1989-11, HA1C, CBCA, 5196-1, 00224-9, 62911-9, 2131-9, 03050-7, 8014-3, 43528-3 #### [facility] ([id number]) [address], [address] [place] [address] Neutrophils/100 WBC (Bld) 73.8 % Normal [facility] [place] Comment on above: Performed By: #### C AGNES, 1989-11, HA1C, CBCA, 5196-1, 06552-9, 80648-4, 2131-9, 14129-7, 8014-3, 74089-0 #### [facility] ([id number]) [address], [address] [place] [address] Platelet mean volume (Bld) [Entitic vol] 9.1 fL Normal 7-12 [facility] [place] Comment on above: Performed By: #### C AGNES, 1989-11, HA1C, CBCA, 5196-1, 08201-5, 25961-1, 2131-9, 86329-7, 8014-3, 74551-7 #### [facility] ([id number]) [address], [address] [place] [address] Platelets (Bld) [#/Vol] 254 10*3/uL Normal 150-450 [facility] [place] Comment on above: Performed By: #### C AGNES, 1989-11, HA1C, CBCA, 5196-1, 48626-0, 50320-7, 2131-9, 89301-5, 8014-3, 12025-2 #### [facility] ([id number]) [address] [facility], [address] [place] [address] RBC COUNT 4.63 X10E12/L Normal 3.80-5.20 [facility] Comment on above: Performed By: #### C AGNES, 1989-11, HA1C, CBCA, 5196-1, 94319-0, 27498-3, 2132-9, 18389-6, 8014-3, 80502-2 #### [facility] ([id number]) [address] [facility], [address] [place] [address] WBC (Bld) [#/Vol] 7.4 10*3/uL Normal 4.0-11.0 [facility] Comment on above: Performed By: #### C AGNES, 1989-11, HA1C, CBCA, 5196-1, 09130-9, 77221-9, 2131-9, 63277-6, 8014-3, 27687-6 #### [facility] ([id number]) [address] [facility], [address] [place] [address] COMPREHENSIVE METABOLIC PANE Jsese 12-11-2023 Albumin [Mass/Vol] 4.3 g/dL Normal 3.2-5.3 [facility] Comment on above: Performed By: #### C AGNES, 1989-11, HA1C, CBCA, 5196-1, 22004-4, 51626-2, 2131-9, 54237-2, 8014-3, 02485-5 #### [facility] ([id number]) [address] [facility], [address] [place] [address] ALP [Catalytic activity/Vol] 48 U/L Normal 39-130 [facility] [place] Comment on above: Performed By: #### C AGNES, 1989-11, HA1C, CBCA, 5196-1, 13958-8, 94163-3, 2131-9, 56892-8, 8014-3, 14560-4 #### [facility] ([id number]) [address] [facility], [address] [place] [address] ALT [Catalytic activity/Vol] 13 U/L Normal 0-31 [facility] [place] Comment on above: Performed By: #### C AGNES, 1989-11, HA1C, CBCA, 5196-1, 20228-0, 19332-8, 2131-9, 74372-3, 8014-3, 35774-2 #### [facility] ([id number]) [address], [address] [place] [address] Anion gap [Moles/Vol] 10 mmol/L Normal 5-15 [facility] [place] Comment on above: Performed By: #### C AGNES, 1989-11, HA1C, CBCA, 5196-1, 12787-2, 37686-1, 2131-9, 18733-6, 8014-3, 26728-2 #### [facility] ([id number]) [address], [address] [place] [address] AST [Catalytic activity/Vol] 17 U/L Normal 0-41 [facility] Comment on above: Performed By: #### C AGNES, 1989-11, HA1C, CBCA, 5196-1, 26812-8, 65795-1, 2131-9, 14611-6, 8014-3, 54343-5 #### [facility] ([id number]) [address], [address] [place] [address] Bilirubin [Mass/Vol] 0.7 mg/dL Normal 0.3-1.2 [facility] Comment on above: Performed By: #### C AGNES, 1989-11, HA1C, CBCA, 5196-1, 43635-1, 55126-8, 2131-9, 67744-8, 8014-3, 13700-2 #### [facility] ([id number]) [address], [address] [place] [address] Calcium [Mass/Vol] 9.5 mg/dL Normal 8.5-10.5 [facility] Comment on above: Performed By: #### C AGNES, 1989-11, HA1C, CBCA, 5196-1, 36567-1, 51071-9, 2132-9, 64013-6, 8014-3, 38268-6 #### [facility] ([id number]) [address] [facility], [address] [place] [address] Chloride [Moles/Vol] 104 mmol/L Normal 98-109 [facility] Comment on above: Performed By: #### C AGNES, 1989-11, HA1C, CBCA, 5196-1, 67662-4, 64103-0, 2-9, 20845-0, 8014-3, 91376-4 #### [facility] ([id number]) [address] [facility], [facility] [address] [place] [address] CO2 [Moles/Vol] 23 mmol/L Normal 22-32 [facility] Comment on above: Performed By: #### C AGNES, 1989-11, HA1C, CBCA, 5196-1, 84844-5, 28934-1, 2132-9, 77845-7, 8014-3, 21353-4 #### [facility] ([id number]) [address] [facility], [facility] [address] [place] [address] Creatinine [Mass/Vol] 0.49 mg/dL Normal 0.40-1.00 [facility] [place] Comment on above: Result Comment: METH OD TRACEABLE TO IDMS STANDARD Performed By: #### C AGNES, 1989-11, HA1C, CBCA, 5196-1, 15709-1, 79572-2, 2-9, 08076-9, 8014-3, 95407-6 #### [facility] ([id number]) [address] [facility] [address] [place] [address] eGFR (CKD-EPI) NON-RACE DEPENDENT >90 Normal >59 [facility] Comment on above: Result Comment: Reported eGFR is based on the CKD-EPI 2020 equation that does not use a race coefficient. Performed By: #### C AGNES, 1989-11, HA1C, CBCA, 5196-1, 24833-1, 48084-0, 2132-9, 96887-7, 8014-3, 58156-0 #### [facility] ([id number]) [address] [facility], [address] [place] [address] Glucose [Mass/Vol] 92 mg/dL Normal 65-99 [facility] Comment on above: Performed By: #### C AGNES, 1989-11, HA1C, CBCA, 5196-1, 42145-5, 09330-8, 2131-9, 89311-3, 8014-3, 02724-8 #### [facility] ([id number]) [address] [facility], [address] [place] [address] Potassium [Moles/Vol] 4.1 mmol/L Normal 3.5-5.0 [facility] Comment on above: Performed By: #### C AGNES, 1989-11, HA1C, CBCA, 5196-1, 75717-3, 44672-6, 2131-9, 21439-1, 8014-3, 07489-0 #### [facility] ([id number]) [address] [facility], [address] [place] [address] Protein [Mass/Vol] 7.5 g/dL Normal 6.0-8.0 [facility] Comment on above: Performed By: #### C AGNES, 1989-11, HA1C, CBCA, 5196-1, 68485-3, 22068-8, 2131-9, 89110-7, 8014-3, 75421-4 #### [facility] ([id number]) [address], [address] [place] [address] Sodium [Moles/Vol] 137 mmol/L Normal 134-146 [facility] Comment on above: Performed By: #### C AGNES, 1989-11, HA1C, CBCA, 5196-1, 60497-5, 71867-5, 2131-9, 85079-3, 8014-3, 14319-9 #### [facility] ([id number]) [address], [address] [place] [address] Urea nitrogen [Mass/Vol] 6 mg/dL Normal 5-23 [facility] Comment on above: Performed By: #### C AGNES, 1989-11, HA1C, CBCA, 5196-1, 22957-0, 40007-7, 2131-9, 91473-9, 8014-3, 85468-1 #### [facility] ([id number]) [address], [address] [place] [address] CRP [Mass/Vol]on 12-11-2023 C REACTIVE PROTEIN 0.5 mg/dL Normal 0.000-0.744 [facility] Comment on above: Performed By: #### C AGNES, 1989-11, HA1C, CBCA, 5196-1, 30817-8, 78846-4, 9, 12730-2, 8014-3, 67973-7 #### [facility] ([id number]) [address], [address] [place] [address] HBV surface Ag IA Qlon 12-10 HEPATITIS B SURF AG Negative Normal NEG [facility] Comment on above: Performed By: #### C AGNES, 1989-11, HA1C, CBCA, 5196-1, 81620-6, 10243-1, 9, 00637-3, 8014-3, 34575-0 #### [facility] ([id number]) [address], [address] [place] [address] HCV Ab IA Qlon 12-11-2023 ANTI HCV W/PCR REFLX Non-Reactive Normal NRCT Pr [facility] Comment on above: Result Comment: If recent infection suspected, recommend repeat testing (>2 months). Ywampv-ey-wzlffi ratio is <0.80. Performed By: #### C AGNES, 1989-11, HA1C, CBCA, 5196-1, 41299-4, 23583-3, 2131-9, 58455-3, 8014-3, 84636-8 #### [facility] ([id number]) [address] [place] [address], [address] [place] [address] HGB A1C (GLYCO-HGB)on 2023 Glucose [Mass/Vol] 103 mg/dL Normal [facility] Comment on above: Performed By: #### C AGNES, 1989-11, HA1C, CBCA, 5196-1, 17974-9, 17122-7, 2131-9, 04335-5, 8014-3, 69783-9 #### [facility] ([id number]) [address] [place] [address], [facility] [address] [place] [address] HbA1c (Bld) [Mass fraction] 5.2 % Normal 4.4-5.6 [facility] Comment on above: Result Comment: NOTE ADA Guidelines Result HgbA1c Normal : less than 5.7 % Prediabetes : 5.7 % to 6.4 % Diabetes : > 6.4 % Use with caution in patients with abnormal hemoglobin variants as the half-life of red blood cells and in vivo glycation rates are affected. Performed By: #### C AGNES, 1989-11, HA1C, CBCA, 5196-1, 44692-5, 75884-9, 2131-9, 19957-7, 8014-3, 39046-4 #### [facility] ([id number]) [address] [facility], [address] [place] [address] HIV 1+2 Ab+HIV1 p24 Ag IA Ql on 12-11-2023 HIV 1 and 2 Ab/Ag Screen Non-Reactive Normal NRCT [facility] Comment on above: Result Comment: This information [...] #### C AGNES, 1989-11, HA1C, CBCA, 5196-1, 57913-9, 38886-1, 9, 80168-4, 8014-3, 88339-6 #### [facility] ([id number]) [address] [place] [address], [address] [place] [address] Rubella virus IgG Qn (S)on 12-11-2023 RUBELLA IgG 30 IU/mL Normal [facility] Comment on above: Result Comment: Interpretation-------- <8 NEGATIVE-considered Not Immune 8-9 EQUIVOCAL-consider retesting with new specimen >9 POSITIVE-considered Immune Performed By: #### Clyde ALARCON, 1989-11, HA1C, CBCA, 5196-1, 22313-5, 24546-4, 9, 16389-0, 8014-3, 09762-2 #### [facility] ([id number]) [address] [place] [address], [address] [place] [address] T. pallidum IgG+IgM IA Ql (S )on 12-11-2023 Syphilis Total <0.2 Normal 0.0-0.8 [facility] Comment on above: Result Comment: NON REACTIVE No serologic evidence of infection to Treponema pallidum (syphilis). Repeat testing may be considered in patients with suspected acute or primary syphilis in 2 to 4 weeks. Performed By: #### Clyde ALARCON, 1989-11, HA1C, CBCA, 5196-1, 87059-5, 45466-0, 2131-9, 57603-7, 8014-3, 32959-5 #### [facility] ([id number]) [address] [facility], [address] [place] [address] VITAMIN B12on 12-11-2023 Cobalamin (Vitamin B12) [Mass/Vol] 142 pg/mL Low 180-914 [facility] Comment on above: Performed By: #### C AGNES, 1989-11, HA1C, CBCA, 5196-1, 26574-7, 00890-1, 9, 02485-4, 8014-3, 25997-9 #### [facility] ([id number]) [address] [facility], [address] [place] [address] Vitamin D+Metabolites [Mass/ Vol]on 12-11-2023 VITAMIN D 25 HYD TOT 21.8 ng/mL Low 30-100 [facility] Comment on above: Result Comment: Vitamin D status 25 [place] Vitamin D Deficiency <20 ng/mL Insufficiency 20-29 ng/mL Sufficiency 30-100 ng/mL Toxicity >100 ng/mL NOTE: A pediatric reference range has not been established by the nurse practitioner of this kit. The [place] [employer] recommends a Vitamin D level of = or >20ng/mL in infants and children. Performed By: #### C , 1989-11, HA1C, CBCA, 5196-1, 94973-6, 82502-7, 9, 60660-4, 8014-3, 06607-8 #### [facility] ([id number]) [address] [facility], [address] [place] [address] SARS/FLU A+B/RSV by NAAT/Mol ecularon 10-08-2023 SARS/FLU [...] operators who are performing tests using either [employer] or [employer] systems and is limited to laboratories that [...] repeat. Fact Sheet for Healthcare Providers: https://www.fda.gov/media /384080/download Fact Sheet for Patients: https://www.fda.gov/media /497405/download [facility] Comment on above: Performed By: #### C OVMOR #### [facility] ([id number]) [address] [place] [address], [place] [address] Consultation Noteon 12-18-19 20 Consultation Note [id number] 7 Normal [facility] Ambulatory Patient Education on 06-04-2018 Ambulatory Patient Education Patient Education MaterialsName: Comfort Maldonado Current Date: 06/04/2018 11:43:12 [place] 1995 following sheet(s) are the Patient Education Leaflets for Comfort Maldonado Normal [facility] Gastroenterology Office/Clin ic Noteon 06-04-2018 Gastroenterology [...] her being referred to Dr. Bowers at [facility] in [place]. She states that she had a colonoscopy [...] Colonoscopy done on 04/17/2018 at [facility] Constitutional: 45 pound weight loss since September [...] she was placed on steroids at the [facility] physician. She states that she is [...] MD 06/05/18 15:58 EST Normal [facility] Vital Signs Date Time Vital Sign Value Performing Clinician Facility 05-16-2024 09:01-0400 Body weight 70.67 kg Sherry Horan Changers Work Phone: [facility] 05-16-2024 09:01-0400 Diastolic blood pressure 64 mm[Hg] Sherry Aung DO Work Phone: [facility] 05-16-2024 09:01-0400 Systolic blood pressure 120 mm[Hg] Sherry Aung DO Work Phone: [facility] 05-15-2024 16:05-0400 Diastolic blood pressure 72 mm[Hg] [address] 05-15-2024 16:05-0400 Heart rate 93 /min [address] 05-15-2024 16:05-0400 Systolic blood pressure 110 mm[Hg] [address] 05-02-2024 09:35-0400 Body weight 68.58 kg Sayra BROWN Work Phone: [facility] 05-02-2024 09:35-0400 Diastolic blood pressure 68 mm[Hg] Sayra BROWN Work Phone: [facility] 05-02-2024 09:35-0400 Systolic blood pressure 110 mm[Hg] Sayra BROWN Work Phone: [facility] 10-25-2023 11:28-0400 Body temperature 99.1 [degF] [facility] [address] [facility] 10-25-2023 11:28-0400 Diastolic blood pressure 62 mm[Hg] [facility] 2 [facility] 10-25-2023 11:28-0400 Heart rate 74 /min [facility] 2 [facility] 10-25-2023 11:28-0400 Respiratory rate 18 /min [facility] [address] [facility] 10-25-2023 11:28-0400 Systolic blood pressure 97 mm[Hg] [facility] 2 [facility] 10-25-2023 08:54-0400 Body mass index (BMI) [Ratio] 25.32 kg/m2 [facility] 2 [facility] 10-25-2023 08:54-0400 Body weight 60.78 kg [facility] 2 [facility] 08-30-2023 11:44-0500 Body temperature 98.2 [degF] [facility] 1 [facility] 08-30-2023 11:44-0500 Diastolic blood pressure 68 mm[Hg] [facility] 1 [facility] 08-30-2023 11:44-0500 Heart rate 73 /min [facility] 1 [facility] 08-30-2023 11:44-0500 SaO2% (BldA) [Mass fraction] 98 % [facility] 1 [facility] 08-30-2023 11:44-0500 Systolic blood pressure 99 mm[Hg] [facility] 1 [facility] 08-30-2023 09:00-0500 Body mass index (BMI) [Ratio] 26.38 kg/m2 [facility] 1 [facility] 08-30-2023 09:00-0500 Body weight 63.32 kg [facility] 1 [facility] Encounters Encounter Date Encounter Type Care Provider Facility Start: 05-17-2024 End: 05-17-2024 Orders Only Akila Snider RN M[facility]- Medicine at [facility] Comment on above: growth restric tion antepartum (Primary Dx); Crohn's disease of both small and large intestine with intestinal obstruction (CMS-HCC); 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 Start: 05-16-2024 End: 05-16-2024 Bamboo flowsheet Sherry Aung DO Work Phone: [facility] Start: 05-16-2024 End: 05-16-2024 Bamboo flowsheet Sherry Aung DO Work Phone: [facility] Start: 05-16-2024 End: 05-16-2024 Office outpatient visit 15 minutes Sherry Aung DO Work Phone: [facility] Comment on above: 32 weeks gestation o f ; Third trimester Start: 05-16-2024 End: 05-16-2024 ambulatory SHERRY AUNG Not Available Start: 05-15-2024 End: 05-15-2024 Orders Only Jenni Owen CMA M[facility]- Medicine at [facility] Comment on above: growth restric [...] Not Available Start: 04-30-2024 End: 04-30-2024 ambulatory [facility] Start: 04-17-2024 End: 04-17-2024 ambulatory [facility] Start: 04-10-2024 End: 04-10-2024 ambulatory [facility] Start: 04-04-2024 End: 04-04-2024 [facility] Start: 04-02-2024 End: 04-02-2024 ambulatory [facility] Start: 03-29-2024 End: 03-29-2024 ambulatory [facility] Start: 03-28-2024 End: 03-28-2024 ambulatory [facility] Start: 03-28-2024 End: 03-28-2024 ambulatory [facility] Start: 03-19-2024 End: 03-19-2024 ambulatory YADIRA CHAU [facility] Start: 03-05-2024 End: 03-05-2024 ambulatory SAYRA ANDREWS Not Available Start: 02-29-2024 End: 02-29-2024 ambulatory SURESH Noa HOUTJean [facility] Start: 02-20-2024 End: 02-20-2024 ambulatory [facility] Start: 02-14-2024 End: 02-14-2024 ambulatory PREMA ABRAHAM [facility] Start: 02-06-2024 End: 02-06-2024 ambulatory SHERRY AUNG Not Available Start: 01-09-2024 End: 01-09-2024 ambulatory SHERRY AUNG Not Available Start: 12-20-2023 End: 12-20-2023 ambulatory PREMA ABRAHAM [facility] Start: 12-11-2023 End: 12-11-2023 ambulatory SHERRY R AUNG [facility] Start: 12-08-2023 End: 12-08-2023 ambulatory SHERRY AUNG Not Available Start: 11-30-2023 End: 11-30-2023 ambulatory SURESH DIAZ [facility] Start: 10-25-2023 End: 10-25-2023 ambulatory [facility] Dh Infusion Chair 2 [facility] Comment on above: Crohn's disease of s mall and large intestines with complication ([facility]-H[facility]) (Primary Dx) Start: 10-24-2023 Telephone encounter Amanda [facility] Start: 10-08-2023 End: 10-08-2023 Emergency department patient visit PREMA ABRAHAM [facility] Start: 08-30-2023 End: 08-30-2023 ambulatory [facility] Infusion Chair 1 [facility] Comment on above: Crohn's disease of s mall and large intestines with complication ([facility]-H[facility]) (Primary Dx) Start: 09-17-2019 End: 09-18-2019 Patient encounter procedure PREMA ABRAHAM Facility:[facility] Start: 06-04-2018 End: 06-05-2018 Patient encounter procedure Trang Harrison Facility:[facility] Procedures Date Procedure Procedure Detail Performing Clinician Start: 05-16-2024 Urnls dip stick/tabl et rgnt non-auto w/o micrscp Sherry Aung DO Work Phone: Start: 05-15-2024 nonstress test Na colin Roman MD Work Phone: Start: 02-06-2024 Microscopic observat ion [Identifier] in Cervix by Cyto stain Jenni Owen [facility] Start: 11-30-2023 Follow-up visit Follow-up SURESH DIAZ Start: 11-11-2021 Microscopic observat ion [Identifier] in Cervix by Cyto stain [facility] 1 Start: 03-04-2021 Adult depression scr eening assessment [facility] 1 Start: 04-14-2020 H/O: colostomy Colostomy status [facility] 1 Start: 12-03-2019 H/O: ileostomy Ileostomy status [facility] 1 Plan of Treatment Date Care Activity Detail Author Start: 02-05-2027 Screening for malign ant neoplasm of cervix Pap Smear [facility] [employer] Start: 05-17-2025 End: 05-17-2025 US MFM with or without consult US MFM with or without consult Imaging Routine growth restriction antepartum Crohn's disease of both small and large intestine with intestinal obstruction (CMS-HCC) 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 Work Phone: Comment on above: Expected: 05/17/2025 (Approximate), Expires: 05/17/2025 Start: 05-15-2025 Tobacco Screening Tobacco Screening [facility] [facility] Start: 04-17-2025 Adult BMI Screening Adult BMI Screen ing [facility] [employer] [facility] Start: 11-11-2024 Screening for malign ant neoplasm of cervix [facility] [employer] Start: 10-24-2024 Adult BMI Screening Adult BMI Screen ing [facility] [employer] [facility] Start: 10-07-2024 Tobacco Screening [facility] [employer] Start: 08-30-2024 Adult BMI Screening [facility] Screen [facility] Start: 06-11-2024 End: 06-11-2024 Patient encounter procedure [facility] Start: 06-05-2024 End: 06-05-2024 ambulatory 06/05/2024 9:00 AM EST Infusion [facility] [address] [id number] [facility] Start: 06-03-2024 End: 06-03-2024 Patient encounter procedure 06/03/2024 8:30 AM EST Routine [facility] [address] [place] [address] Sherry Horan DO [address] [place] [address] [facility] Start: 05-30-2024 End: 05-30-2024 Patient encounter procedure 05/30/2024 3:00 PM EDT Appointment [facility] [address] [place] [phone] [facility] Start: 05-16-2024 End: 05-16-2024 Patient encounter procedure [facility] Comment on above: Arrived Start: 05-10-2024 Tobacco Screening Tobacco Screening [facility] Start: 05-02-2024 End: 05-02-2024 Patient encounter procedure 05/02/2024 9:30 AM EDT Routine [facility] [address] [place] [address] Sayra Andrews PA [address] [place] [address] Arrived [facility] Comment on above: Arrived Start: 03-31-2024 Influenza vaccination Influenza Vacc ine [facility] Start: 12-20-2023 End: 12-20-2023 ambulatory 12/20/2023 9:00 AM EDT Infusion [facility] [address] [place] [id number] [facility] Start: 11-30-2023 End: 11-30-2023 Patient encounter procedure 11/30/2023 9:30 AM EDT Office Visit [facility] [address] [place] [phone] Suresh Diaz MD [address] [place] [address] [facility] Start: 10-25-2023 End: 10-25-2023 ambulatory 10/25/2023 9:00 AM EDT Infusion [facility] [address] [place] [phone] [facility] Start: 03-31-2023 Influenza vaccination Influenza Vacc ine [facility] Start: 03-04-2022 Depression Screening Depression Scre ening [facility] Start: 2012 DTaP,Tdap and Td Vaccines (1 - Tdap) DTaP,Tdap and Td Vaccines (1 - Tdap) [facility] Start: 2011 Adult BMI Follow Up Plan Adult BMI Follow Up Plan [facility] Start: 2005 Depression Screening Depression Scre ening [facility] End: 10-24-2024 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[employer] Lab Routine Crohn's disease of small and large intestines with complication ([facility]-HCC) 1 Occurrences starting 10/25/2023 until 10/24/2024 [facility] Work Phone: Comment on above: 1 Occurrences starti ng 10/25/2023 until 10/24/2024 Payers Date Payer Category Payer Medicaid [id number] 2022 Medicaid [id number] 1993 Unknown [id number] 2.16.8 40.1.966656.3.579.2.196 1993 Unknown [id number] 2.16.84 0.1.254635.3.579.2.593 1993 Unknown [id number] 2.16.8 40.1.362531.3.579.2.1286 1993 Unknown [id number] 2.16.8 40.1.326118.3.579.2.1286 1993 Unknown [id number] 2.16.8 40.1.645262.3.579.2.1285 1993 Unknown [id number] 2.16.8 40.1.305380.3.579.2.1285 1993 Unknown [id number] 2.16.8 40.1.490566.3.579.2.1285 1993 Unknown [id number] 2.16.8 40.1.487866.3.579.2.1285 1993 Unknown [id number] 2.16.8 40.1.042510.3.579.2.1285 1993 Unknown [id number] 2.16.8 40.1.966713.3.579.2.1285 1993 Unknown [id number] 2.16.8 40.1.294983.3.579.2.1285 1993 Unknown [id number] 2.16.8 40.1.966927.3.579.2.1285 1993 Unknown [id number] 2.16.8 40.1.395688.3.579.2.1285 1993 Unknown [id number] 2.16.8 40.1.467397.3.579.2.1285 1993 Unknown [id number] 2.16.8 40.1.437039.3.579.2.1285 1993 Unknown [id number] 2.16.8 40.1.519340.3.579.2.1285 1993 Unknown [id number] 2.16.8 40.1.686347.3.579.2.1285 1993 Unknown [id number] 2.16.8 40.1.680055.3.579.2.1285 1993 Unknown [id number] 2.16.8 40.1.677142.3.579.2.1285 1993 Unknown [id number] 2.16.8 40.1.929435.3.579.2.1286 1993 Unknown [id number] 2.16.8 40.1.052467.3.579.2.1286 1993 Unknown [id number] 2.16.8 40.1.408591.3.579.2.1286 1993 Unknown [id number] 2.16.8 40.1.603495.3.579.2.1286 1993 Unknown [id number] 2.16.8 40.1.451624.3.579.2.1286 1993 Unknown [id number] 2.16.84 0.1.019075.3.579.2.1259 1993 Unknown [id number] 2.16.84 0.1.554837.3.579.2.1259 1993 Unknown [id number] 2.16.84 0.1.849838.3.579.2.9 1993 Unknown [id number] 2.16.84 0.1.251560.3.579.2.1259 1993 Unknown [id number] 2.16.84 0.1.623475.3.579.2.1259 1993 Unknown [id number] 2.16.84 0.1.068245.3.579.2.1259 1993 Unknown [id number] 2.16.84 0.1.869395.3.579.2.1259 1959 Self-pay [id number] 07-31-1799 Self-pay Social History Date Type Detail Facility Start: 07-05-2022 End: 12-08-2023 Tobacco smoking status NVIS Never smoked tobacco [facility] Start: 07-05-2022 End: 12-08-2023 Tobacco use and exposure Smokeless tobacco non-user [facility] Start: 05-10-2023 End: 10-08-2023 Alcohol intake Current drinker of alcohol (finding) [facility] Start: 08-10-2020 End: 05-10-2023 Alcohol intake [facility] Start: 08-06-2020 End: 08-10-2020 Social connection and isolation panel [facility] Do you belong to any clubs or organizations such as yazdanism groups, unions, fraternal or athletic groups, or school groups? No [facility] Are you now , , , , never or living with a partner? [facility] How often to you hav e a drink containing alcohol? 2-4 times a month [facility] Average Number of Drinks Not on file [facility] Do you feel stress - tense, restless, nervous, or anxious, or unable to sleep at night because your mind is troubled all the time - these days [OSQ] Only a little [facility] Start: 12-22-2021 Alcohol Comment socially [facility] Start: 1995 Sex Assigned At Not on file P [facility] Start: 05-02-2024 End: 05-15-2024 Alcoholic beverage intake Ex-drinker (finding) [facility] Start: 10-17-2023 [facility] Start: 10-16-2019 Sex Female (finding) [facility] Goals Date Patient Goal Desired Activity /State Personal health goal Comment on above: Formatting of this n ote might be different from the original. Evaluation of progress towards goal: Patient plans to return home with [facility] Clinical Notes 08-30-2023 to 05-16-2024 Paddy Garza [...] nursing note reviewed. Exam conducted with a cashier and salesperson present. Vitals: There is no height or [...] Estimated Date of Delivery: 07/09/24. Discussed recent [facility] appointment with patient and delivery due to SGA & Crohn's Disease. Nursing will obtain office note from MFM appointment yesterday. Patient given order to have NST/BPP done locally at [facility]. Documented by Paddy Garza LPN on behalf of: Sherry Horan DO documented in this encounter [facility] 05-15-2024 History of Presen t illness [...] all scheduled appointments documented in this encounter [facility] 05-02-2024 History of Presen t illness [...] of: STEPHANIE Thorne documented in this encounter [facility] 10-25-2023 History of Presen t illness Narrative 0900 Patient here for Avsola infusion. Patient denies any recent infections, open wounds, recent/future surgery, or insurance changes . IV started with 22g needle to right AC by paddy gill x 1 attempt . Patient tolerated well. Avsola x 2 vials, lot# [id number], exp date Avsola x 1 vial, lot# [id number], exp date 02/27/2027 Time out performed with [...] of info given. documented [facility] this [facility] 10-24-2023 Miscellaneous Notes Formattin g of this note might be different from the original. Patient currently receiving Avsola 5mg/kg every 8 weeks. However due to nurse practitioner delay we are unable to obtain medication. Prior auth request forms completed for Remicade 5mg/kg to be given every 56 days, faxed to [phone] Remicade approved for 5mg/kg (400mg) for 7 visits from 10/25/2023-10/23/2024. Auth # [id number] Referral placed. Therapy plan updated. Flowsheet updated. documented in this encounter [facility] 10-24-2023 Telephone encount er Note Patient currently receiving Avsola 5mg/kg every 8 weeks. However due to nurse practitioner delay we are unable to obtain medication. Prior auth request forms completed for Remicade 5mg/kg to be given every 56 days, faxed to [phone] [facility] 10-24-2023 Telephone encount er Note Remicade approved for 5mg/kg (400mg) for 7 visits from 10/25/2023-10/23/2024. Auth # [id number] Referral placed. Therapy plan updated. Flowsheet updated. [facility] 08-30-2023 History of Presen t illness [...] well. documented in this encounter [facility] Evaluation note Diagnosis Crohn's disease of small and large intestines with complication (CMS-HCC)- Primary documented in this encounter [facility] Diagnosis Crohn's disease of small and large intestines with complication (CMS-HCC)- Primary documented in this encounter [facility]* Diagnosis 30 weeks gestation of - Primary Third trimester state, incidental documented in this encounter [facility]* Diagnosis Crohn's disease of both small and large intestine with intestinal obstruction (CMS-HCC)- Primary growth restriction antepartum growth restriction antepartum- Primary documented in this encounter [facility] Diagnosis Crohn's disease of both small and large intestine with intestinal obstruction (CMS-HCC)- Primary growth restriction antepartum documented in this encounter [facility] Diagnosis 32 weeks gestation [...] Health SystemInstructionsNot on filedocumented in this encounter [facility] Summary Purpose Family History [...] content) DATE CREATED AUTHOR 07/08/2018 [facility] DATE CREATED AUTHOR AUTHOR'S ORGANIZ ATION 09/20/2019 [facility] DATE CREATED AUTHOR AUTHOR'S ORGANIZ ATION 12/18/2019 [facility] DATE CREATED AUTHOR AUTHOR'S ORGANIZ ATION 04/03/2024 [facility] DATE CREATED AUTHOR AUTHOR'S ORGANIZ ATION 04/12/2024 [facility] DATE CREATED AUTHOR AUTHOR'S ORGANIZ ATION 05/18/2024 [facility] DATE CREATED AUTHOR AUTHOR'S ORGANIZ ATION 05/18/[address] [facility] dical Specialists EPIC Reason for [...] (AVSOLA), 10 [place] [address] [place] [address] [facility] [address] [place] [address] Referral ID Status Reason Start Date Expiration Date V isits Requested Visits Authorized [id number] Authorized 02/02/2023 02/02/2024 7 7 Reason Comments Outpatient Infusion Avsola Reason Comments Routine Visit Reason Comments add on NST for FGR Specialty Diagnoses / Procedures Referred By Contac t Referred To Contact Maternal and Medicine Diagnoses growth restriction antepartum Procedures nonstress test - Maternal Medicine Devyn Roman MD [address] [address] [place] [address] Phone: tel: fax: Maternal- Medicine at [address] [place] [address] Phone: tel: fax: Referral ID Status Reason Start Date Expiration Date V isits Requested Visits Authorized [id number] Pending Review 05/15/2024 05/15/2025 1 1 Care Teams (unrecognized sec tion and content) Nut Roaster Relationship Specialty Start Date End Date Prema Abraham MD [address] [place], [place] [id number] PCP - General Family Medicine 12/17/19 Nut Roaster Relationship Specialty [place] [address] [place] [address] PCP - General Family Medicine 10/08/23 Nut Roaster Relationship Specialty [place] [address] [place] [address] PCP - General Family Medicine 10/08/23 Nut Roaster Relationship Specialty Start Date End Date Prema Abraham MD [address] [place] [address] PCP - General Family Medicine 02/29/24 Nut Roaster Relationship Specialty Start Date End Date Prema Abraham MD [address] [place] [address] PCP - General Family Medicine 02/29/24 Nut Roaster Relationship Specialty Start Date End Date Prema Abraham MD [address] [place], [place] [id number] PCP - General Family Medicine 02/29/24 FOR [...] BE BASED ON THE PRIMARY CLINICAL RECORDS. [employer] To Get Approved For. provides no warranty or guarantee of the accuracy or completeness of information in this document.
--- NOTE | 2024-05-28 08:54 | US_ITS ---
[address] [address] Patient Name: ZAINAB SAAVEDRA MRN: [id number] date: 1995 Sex: F Assigned Patient Location: US Current Patient Location: US Accession/Order Number: [id number] Exam Date: 05/28/2024 09:15 Report Date: 05/28/2024 11:32 At the request of: SHERRY REYNA Procedure: US OB BPP w non-stress EXAMINATION: US OB BPP w non-stress HISTORY:Crohn's disease with complication COMPARISON: Ultrasound OB biophysical 05/21/2024 TECHNIQUE: Ultrasound biophysical profile was performed in the radiology department. BREATHING MOVEMENTS: 2 GROSS BODY MOVEMENTS: 2 TONE: 2 QUALITATIVE AMNIOTIC FLUID VOLUME: 2 PRESENTATION: BREECH HEART RATE: 135.68 bpm AMNIOTIC FLUID VOLUME: 16.72 cm GESTATIONAL AGE: 89 Day US/US OB BPP w non-stress IMPRESSION: Total biophysical profile score: 8 Electronically authenticated by: SUKHWINDER RASHID Date: 05/28/2024 11:32
[2024-05-28 08:58] VITALS: BP 138/74; PULSE 134
[2024-05-28 09:09] VITALS: BP 127/79; PULSE 118
== END 2024-05-28 09:49 | disposition home or self-care (01) ==
LOC: US 07:10 → FBC 08:50
PROVIDERS: PCP Family Medicine; Visit Provider Obstetrics & Gynecology
DX: O99.283 Endocrine, nutritional and metabolic diseases complicating pregnancy, third trimester (principal); Z3A.34 34 weeks gestation of pregnancy
CPT/HCPCS: 76818

== ENCOUNTER 2024-05-31 07:15 | Outpatient (OUT) | payer MEDICAID, SELFPAY ==
--- OUTSIDE RECORDS SUMMARY | 2024-05-31 07:18 | XMS_ITS | CCD ---
Author Organization [facility] Care Team Providers Care Client Retention Specialist Name Role Phone Trang Harrison Unavailable Unavailable Prema Abraham Unavailable Unavaila PREMA Mahan Admitting Unavailable PREMA ABRAHAM Attending Unavailable PREMA ABRAHAM Primary Care Unavailable ALLISON TOWNSEND V Consulting Unavailable PREMA ABRAHAM Consulting Unavailable Prema Abraham MD Primary Care Provider [phone] Prema Abraham MD Primary Care Provider PREMA ABRAHAM Primary Care Unavailable SHERRY HORAN Referring Unavailable PREMA ABRAHAM Referring Unavailable PREMA ABRAHAM Primary Care Unavailable PREMA ABRAHAM Referring Unavailable PREMA ABRAHAM Primary Care Unavailable SURESH DIAZ Referring Unavailable Unavailable Primary Care Provider UnavailPrema Sheriff MD Primary Care Provider [phone] PREMA ABRAHAM Referring Unavailable PREMA ABRAHAM Primary [...] UA Negative Negative - 4(70) +++ mg/dL [facility] Blood, UA Positive Negative - 50 Kal/mcL [facility] Comment on above: trace-intact Clarity, UA Clear [facility] Color, UA Yellow [facility] Glucose, UA Negative Negative - 1999(110) ++++ mg/dL [facility] Interpretation and review of laboratory results Abnormal [facility] Ketones, UA Negative Negative - 160(16) ++++ mg/dL [facility] Leukocytes, UA Negative Negative - 500+++ Sandra/mcL [facility] Nitrite, UA Negative Negative - Positive [facility] pH, UA 6 5 - 9 [facility] Protein, UA Negative Negative - 2000(20) ++++ mg/dL [facility] Spec Grav, UA 1.025 1 - 1.03 [facility] Urobilinogen, UA 0.2 0.2 - 12 mg/dL [facility] No Panel Informationon 05-15 Patient Name: Kishor Maldonado Patient : 1995 NST Objective Findings: Variability: Moderate Decelerations: None Accelerations: Yes Acoustic Stimulator: No Baseline: 130 BPM Uterine Irritability: Yes Contractions: Not present Comments: Uterine irritability noted, intercourse this morning. [facility] instructions/handout and labor precautions reviewed. NST Interpretation: Nonstress Test Interpretation: Reactive (Devyn Roman MD) NST performed by: Aislinn Richardson RN 05/15/2024 4:[address] [facility] IFN-g p venkat (Bld)on 03-29-2024 Mitogen minus Nil Result 1.22 IU/mL Normal [facility] Comment on above: Performed By: #### C AGNES, 1989-11, HA1C, CBCA, 5196-1, 63043-0, 62930-2, 2132-9, 81526-0, 8014-3, 13225-3 #### [facility] ([id number]) [address] [place] [address], [address] [place] [address] Nil Result 0.02 IU/mL Normal [facility] Comment on above: Result Comment: NOTE Test Performed by: [facility] [address] [place] [address] Medic Technician: Donnie Sanon Ph.D.; CLIA# [id number] Performed By: #### C AGNES, 1989-11, HA1C, CBCA, 5196-1, 80858-5, 80961-8, 2-9, 42987-3, 8014-3, 40614-8 #### [facility] ([id number]) [address] [facility], [address] [place] [address] QuantiFERON-Tb Gold Plus Result Negative Normal Negative [facility] Comment on above: Result Comment: [...] #### C AGNES, 1989-11, HA1C, CBCA, 5196-1, 29925-6, 70654-7, 2132-9, 69579-8, 8014-3, 12982-9 #### [facility] ([id number]) [address] [place] [address], [address] [place] [address] TB1 Ag minus Nil Result NEG 0.01 Normal [facility] Comment on above: Performed By: #### C AGNES, 1989-11, HA1C, CBCA, 5196-1, 92497-7, 82530-5, 2132-9, 33701-7, 8014-3, 83037-0 #### [facility] ([id number]) [address] [place] [address], [address] [place] [address] TB2 Ag minus Nil Result NEG 0.01 Normal [facility] Comment on above: Performed By: #### C AGNES, 1989-11, HA1C, CBCA, 5196-1, 50287-2, 56638-8, 2132-9, 30185-9, 8014-3, 72793-1 #### [facility] ([id number]) [address] [place] [address], [address] [place] [address] CBC AND AUTO DIFFon -13-20 24 ABSOLUTE BASOPHIL 0.0 X10E9/L Normal 0.0-0.2 [facility] Comment on above: Performed By: #### C AGNES, 1989-11, HA1C, CBCA, 5196-1, 16960-3, 80716-4, 2132-9, 45273-0, 8014-3, 01214-8 #### [facility] ([id number]) [address] [place] [address], [address] [place] [address] ABSOLUTE NEUTROPHIL 5.5 X10E9/L Normal 1.5-6.6 [facility] Comment on above: Performed By: #### C AGNES, 1989-11, HA1C, CBCA, 5196-1, 14681-7, 18517-1, 2132-9, 50073-6, 8014-3, 68655-4 #### [facility] ([id number]) [address], [address] [place] [address] Basophils/100 WBC (Bld) 0.3 % Normal [facility] Comment on above: Performed By: #### C AGNES, 1989-11, HA1C, CBCA, 5196-1, 62240-3, 60278-7, 2-9, 90921-9, 8014-3, 25922-2 #### [facility] ([id number]) [address], [address] [place] [address] Eosinophils (Bld) [#/Vol] 0.2 10*3/uL Normal 0.0-0.4 [facility] Comment on above: Performed By: #### C AGNES, 1989-11, HA1C, CBCA, 5196-1, 75106-4, 98292-9, 2-9, 22244-0, 8014-3, 30542-0 #### [facility] ([id number]) [address], [address] [place] [address] Eosinophils/100 WBC (Bld) 2.6 % Normal [facility] Comment on above: Performed By: #### C AGNES, 1989-11, HA1C, CBCA, 5196-1, 75427-8, 49335-4, 2132-9, 44619-3, 8014-3, 54423-1 #### [facility] ([id number]) [address], [address] [place] [address] Erythrocyte distribution width (RBC) [Ratio] 13.3 % Normal 11.5-15.0 [facility] Comment on above: Performed By: #### C AGNES, 1989-11, HA1C, CBCA, 5196-1, 33458-6, 18353-5, 2131-9, 41647-4, 8014-3, 74950-8 #### [facility] ([id number]) [address], [address] [place] [address] Hematocrit (Bld) [Volume fraction] 40.5 % Normal 35-47 [facility] Comment on above: Performed By: #### C AGNES, 1989-11, HA1C, CBCA, 5196-1, 95441-4, 25721-1, 2131-9, 88270-5, 8014-3, 80130-5 #### [facility] ([id number]) [address], [address] [place] [address] Hemoglobin (Bld) [Mass/Vol] 14.2 g/dL Normal 11.7-15.5 [facility] Comment on above: Performed By: #### C AGNES, 1989-11, HA1C, CBCA, 5196-1, 60735-3, 53467-2, 2131-9, 63633-4, 8014-3, 00003-3 #### [facility] ([id number]) [address], [address] [place] [address] Lymphocytes (Bld) [#/Vol] 1.3 10*3/uL Normal 1.0-3.5 [facility] Comment on above: Performed By: #### C AGNES, 1989-11, HA1C, CBCA, 5196-1, 47638-4, 13455-7, 2131-9, 82699-1, 8014-3, 80818-5 #### [facility] ([id number]) [address], [address] [place] [address] Lymphocytes/100 WBC (Bld) 18.2 % Normal [facility] Comment on above: Performed By: #### C AGNES, 1989-11, HA1C, CBCA, 5196-1, 59731-8, 14553-9, 2132-9, 80324-0, 8014-3, 02782-7 #### [facility] ([id number]) [address], [address] [place] [address] MCH (RBC) [Entitic mass] 30.7 pg Normal 27-34 [facility] Comment on above: Performed By: #### C AGNES, 1989-11, HA1C, CBCA, 5196-1, 66633-0, 57735-4, 2131-9, 22513-9, 8014-3, 14482-9 #### [facility] ([id number]) [address], [address] [place] [address] MCHC (RBC) [Mass/Vol] 35.2 g/dL Normal 32-36 [facility] Comment on above: Performed By: #### C AGNES, 1989-11, HA1C, CBCA, 5196-1, 92280-4, 49838-9, 2131-9, 90734-6, 8014-3, 76453-3 #### [facility] ([id number]) [address] [facility], [address] [place] [address] MCV (RBC) [Entitic vol] 87 fL Normal 80-100 [facility] Comment on above: Performed By: #### C AGNES, 1989-11, HA1C, CBCA, 5196-1, 71477-1, 69783-3, 2131-9, 04463-9, 8014-3, 22957-1 #### [facility] ([id number]) [address], [address] [place] [address] Monocytes (Bld) [#/Vol] 0.4 10*3/uL Normal 0-0.9 [facility] Comment on above: Performed By: #### C AGNES, 1989-11, HA1C, CBCA, 5196-1, 36994-2, 24104-6, 2132-9, 32466-9, 8014-3, 57912-4 #### [facility] ([id number]) [address], [address] [place] [address] Monocytes/100 WBC (Bld) 5.1 % Normal [facility] Comment on above: Performed By: #### C AGNES, 1989-11, HA1C, CBCA, 5196-1, 62250-7, 50619-6, 2131-9, 34580-1, 8014-3, 38098-4 #### [facility] ([id number]) [address], [address] [place] [address] Neutrophils/100 WBC (Bld) 73.8 % Normal [facility] Comment on above: Performed By: #### C AGNES, 1989-11, HA1C, CBCA, 5196-1, 41761-1, 17047-6, 2131-9, 34707-8, 8014-3, 47297-4 #### [facility] ([id number]) [address], [address] [place] [address] Platelet mean volume (Bld) [Entitic vol] 9.1 fL Normal 7-12 [facility] Comment on above: Performed By: #### C AGNES, 1989-11, HA1C, CBCA, 5196-1, 49844-3, 86206-2, 2131-9, 09709-4, 8014-3, 31473-6 #### [facility] ([id number]) [address], [address] [place] [address] Platelets (Bld) [#/Vol] 254 10*3/uL Normal 150-450 [facility] Comment on above: Performed By: #### C AGNES, 1989-11, HA1C, CBCA, 5196-1, 24069-2, 34723-5, 2131-9, 38727-5, 8014-3, 42753-8 #### [facility] ([id number]) [address] [facility], [address] [place] [address] RBC COUNT 4.63 X10E12/L Normal 3.80-5.20 [facility] Comment on above: Performed By: #### C AGNES, 1989-11, HA1C, CBCA, 5196-1, 22033-6, 05644-2, 2132-9, 44356-5, 8014-3, 92653-9 #### [facility] ([id number]) [address], [address] [place] [address] WBC (Bld) [#/Vol] 7.4 10*3/uL Normal 4.0-11.0 [facility] Comment on above: Performed By: #### C AGNES, 1989-11, HA1C, CBCA, 5196-1, 89979-5, 22130-3, 2131-9, 84311-4, 8014-3, 04626-1 #### [facility] ([id number]) [address], [address] [place] [address] COMPREHENSIVE METABOLIC PANE Jesse 12-11-2023 Albumin [Mass/Vol] 4.3 g/dL Normal 3.2-5.3 [facility] Comment on above: Performed By: #### C AGNES, 1989-11, HA1C, CBCA, 5196-1, 54344-2, 33040-7, 2131-9, 76729-0, 8014-3, 12591-9 #### [facility] ([id number]) [address], [address] [place] [address] ALP [Catalytic activity/Vol] 48 U/L Normal 39-130 [facility] Comment on above: Performed By: #### C AGNES, 1989-11, HA1C, CBCA, 5196-1, 47812-6, 91560-5, 2131-9, 95842-5, 8014-3, 40992-5 #### [facility] ([id number]) [address] [facility], [address] [place] [address] ALT [Catalytic activity/Vol] 13 U/L Normal 0-31 [facility] Comment on above: Performed By: #### C AGNES, 1989-11, HA1C, CBCA, 5196-1, 88661-4, 40011-7, 2131-9, 96670-8, 8014-3, 03589-2 #### [facility] ([id number]) [address], [address] [place] [address] Anion gap [Moles/Vol] 10 mmol/L Normal 5-15 [facility] Comment on above: Performed By: #### C AGNES, 1989-11, HA1C, CBCA, 5196-1, 29976-9, 89708-8, 2131-9, 21094-3, 8014-3, 11633-2 #### [facility] ([id number]) [address], [address] [place] [address] AST [Catalytic activity/Vol] 17 U/L Normal 0-41 [facility] Comment on above: Performed By: #### C AGNES, 1989-11, HA1C, CBCA, 5196-1, 13862-9, 38387-3, 2131-9, 90874-3, 8014-3, 92945-4 #### [facility] ([id number]) [address], [address] [place] [address] Bilirubin [Mass/Vol] 0.7 mg/dL Normal 0.3-1.2 [facility] Comment on above: Performed By: #### C AGNES, 1989-11, HA1C, CBCA, 5196-1, 59492-6, 84487-8, 2131-9, 02775-5, 8014-3, 33386-6 #### [facility] ([id number]) [address], [address] [place] [address] Calcium [Mass/Vol] 9.5 mg/dL Normal 8.5-10.5 [facility] Comment on above: Performed By: #### C AGNES, 1989-11, HA1C, CBCA, 5196-1, 27461-5, 23256-7, 2132-9, 91011-2, 8014-3, 98611-7 #### [facility] ([id number]) [address] [facility], [address] [place] [address] Chloride [Moles/Vol] 104 mmol/L Normal 98-109 [facility] Comment on above: Performed By: #### C AGNES, 1989-11, HA1C, CBCA, 5196-1, 76932-0, 67978-6, 2-9, 96528-9, 8014-3, 71480-9 #### [facility] ([id number]) [address] [facility] [facility] [address] [place] [address] CO2 [Moles/Vol] 23 mmol/L Normal 22-32 [facility] Comment on above: Performed By: #### C AGNES, 1989-11, HA1C, CBCA, 5196-1, 09386-8, 59011-6, 2132-9, 46757-5, 8014-3, 51807-2 #### [facility] ([id number]) [address] [facility] [facility] [address] [place] [address] Creatinine [Mass/Vol] 0.49 mg/dL Normal 0.40-1.00 [facility] Comment on above: Result Comment: METH OD TRACEABLE TO IDMS STANDARD Performed By: #### C AGNES, 1989-11, HA1C, CBCA, 5196-1, 44534-4, 33936-4, 2-9, 63168-4, 8014-3, 28663-9 #### [facility] ([id number]) [address] [facility] [address] [place] [address] eGFR (CKD-EPI) NON-RACE DEPENDENT >90 Normal >59 [facility] Comment on above: Result Comment: Reported eGFR is based on the CKD-EPI 2020 equation that does not use a race coefficient. Performed By: #### C AGNES, 1989-11, HA1C, CBCA, 5196-1, 43716-9, 24206-3, 2132-9, 89556-2, 8014-3, 14739-2 #### [facility] ([id number]) [address] [facility], [address] [place] [address] Glucose [Mass/Vol] 92 mg/dL Normal 65-99 [facility] Comment on above: Performed By: #### C AGNES, 1989-11, HA1C, CBCA, 5196-1, 35596-7, 43588-5, 2131-9, 11409-4, 8014-3, 68463-3 #### [facility] ([id number]) [address] [facility] [facility], [address] [place] [address] Potassium [Moles/Vol] 4.1 mmol/L Normal 3.5-5.0 [facility] Comment on above: Performed By: #### C AGNES, 1989-11, HA1C, CBCA, 5196-1, 55409-2, 93399-2, 2131-9, 03484-0, 8014-3, 18251-5 #### [facility] ([id number]) [address] [facility] [facility], [address] [place] [address] Protein [Mass/Vol] 7.5 g/dL Normal 6.0-8.0 [facility] Comment on above: Performed By: #### C AGNES, 1989-11, HA1C, CBCA, 5196-1, 17986-2, 09365-4, 2131-9, 27080-1, 8014-3, 70553-8 #### [facility] ([id number]) [address], [address] [place] [address] Sodium [Moles/Vol] 137 mmol/L Normal 134-146 [facility] Comment on above: Performed By: #### C AGNES, 1989-11, HA1C, CBCA, 5196-1, 54387-6, 75300-5, 2131-9, 43711-4, 8014-3, 39474-2 #### [facility] ([id number]) [address], [address] [place] [address] Urea nitrogen [Mass/Vol] 6 mg/dL Normal 5-23 [facility] Comment on above: Performed By: #### C AGNES, 1989-11, HA1C, CBCA, 5196-1, 49031-0, 74228-9, 2131-9, 24206-4, 8014-3, 14730-1 #### [facility] ([id number]) [address], [address] [place] [address] CRP [Mass/Vol]on 12-11-2023 C REACTIVE PROTEIN 0.5 mg/dL Normal 0.000-0.744 [facility] Comment on above: Performed By: #### C AGNES, 1989-11, HA1C, CBCA, 5196-1, 56679-8, 38732-0, 9, 36707-2, 8014-3, 03664-3 #### [facility] ([id number]) [address], [address] [place] [address] HBV surface Ag IA Qlon 12-10 HEPATITIS B SURF AG Negative Normal NEG [facility] Comment on above: Performed By: #### C AGNES, 1989-11, HA1C, CBCA, 5196-1, 45404-6, 82198-7, 9, 56335-4, 8014-3, 13648-5 #### [facility] ([id number]) [address], [address] [place] [address] HCV Ab IA Qlon 12-11-2023 ANTI HCV W/PCR REFLX Non-Reactive Normal NRCT Pr [facility] Comment on above: Result Comment: If recent infection suspected, recommend repeat testing (>2 months). Ahjmok-kb-bmisra ratio is <0.80. Performed By: #### C AGNES, 1989-11, HA1C, CBCA, 5196-1, 00455-3, 96880-9, 2131-9, 08022-2, 8014-3, 61406-3 #### [facility] ([id number]) [address] [place] [address], [address] [place] [address] HGB A1C (GLYCO-HGB)on 2023 Glucose [Mass/Vol] 103 mg/dL Normal [facility] Comment on above: Performed By: #### C AGNES, 1989-11, HA1C, CBCA, 5196-1, 79707-9, 23923-7, 2131-9, 37067-2, 8014-3, 84150-3 #### [facility] ([id number]) [address] [place] [address], [facility] [address] [place] [address] HbA1c (Bld) [Mass fraction] 5.2 % Normal 4.4-5.6 [facility] Comment on above: Result Comment: NOTE ADA Guidelines Result HgbA1c Normal : less than 5.7 % Prediabetes : 5.7 % to 6.4 % Diabetes : > 6.4 % Use with caution in patients with abnormal hemoglobin variants as the half-life of red blood cells and in vivo glycation rates are affected. Performed By: #### C AGNES, 1989-11, HA1C, CBCA, 5196-1, 36889-5, 98359-9, 2131-9, 27706-0, 8014-3, 01828-5 #### [facility] ([id number]) [address] [facility], [address] [place] [address] HIV 1+2 Ab+HIV1 p24 Ag IA Ql on 12-11-2023 HIV 1 and 2 Ab/Ag Screen Non-Reactive Normal NRCT [facility] Comment on above: Result Comment: [...] #### C AGNES, 1989-11, HA1C, CBCA, 5196-1, 78671-4, 24892-0, 9, 39299-6, 8014-3, 59759-1 #### [facility] ([id number]) [address] [place] [address], [address] [place] [address] Rubella virus IgG Qn (S)on 12-11-2023 RUBELLA IgG 30 IU/mL Normal [facility] Comment on above: Result Comment: Interpretation-------- <8 NEGATIVE-considered Not Immune 8-9 EQUIVOCAL-consider retesting with new specimen >9 POSITIVE-considered Immune Performed By: #### Clyde ALARCON, 1989-11, HA1C, CBCA, 5196-1, 14374-4, 65064-9, 9, 27507-0, 8014-3, 61807-9 #### [facility] ([id number]) [address] [place] [address], [address] [place] [address] T. pallidum IgG+IgM IA Ql (S )on 12-11-2023 Syphilis Total <0.2 Normal 0.0-0.8 [facility] Comment on above: Result Comment: NON REACTIVE No serologic evidence of infection to Treponema pallidum (syphilis). Repeat testing may be considered in patients with suspected acute or primary syphilis in 2 to 4 weeks. Performed By: #### Clyde ALARCON, 1989-11, HA1C, CBCA, 5196-1, 16601-5, 23640-6, 2131-9, 63766-1, 8014-3, 32127-4 #### [facility] ([id number]) [address] [facility], [address] [place] [address] VITAMIN B12on 12-11-2023 Cobalamin (Vitamin B12) [Mass/Vol] 142 pg/mL Low 180-914 [facility] Comment on above: Performed By: #### C AGNES, 1989-11, HA1C, CBCA, 5196-1, 26576-9, 44501-5, 9, 72469-2, 8014-3, 41458-1 #### [facility] ([id number]) [address] [facility], [address] [place] [address] Vitamin D+Metabolites [Mass/ Vol]on 12-11-2023 VITAMIN D 25 HYD TOT 21.8 ng/mL Low 30-100 [facility] Comment on above: Result Comment: Vitamin D status 25 [place] Vitamin D Deficiency <20 ng/mL Insufficiency 20-29 ng/mL Sufficiency 30-100 ng/mL Toxicity >100 ng/mL NOTE: A pediatric reference range has not been established by the rock mason apprentice of this kit. The [place] [employer] recommends a Vitamin D level of = or >20ng/mL in infants and children. Performed By: #### C , 1989-11, HA1C, CBCA, 5196-1, 14213-4, 12064-9, 9, 96358-3, 8014-3, 80497-6 #### [facility] ([id number]) [address] [facility], [address] [place] [address] SARS/FLU A+B/RSV by NAAT/Mol ecularon 10-08-2023 SARS/FLU [...] operators who are performing tests using either Sprooki or Leikr systems and is limited to laboratories that [...] repeat. Fact Sheet for Healthcare Providers: https://www.fda.gov/media /472070/download Fact Sheet for Patients: https://www.fda.gov/media /254536/download [facility] Comment on above: Performed By: #### C OVMIR #### [facility] ([id number]) [address] [place] [address], [place] [address] Consultation Noteon 12-18-19 20 Consultation Note [id number]:12 7 Normal [facility] Ambulatory Patient Education on 06-04-2018 Ambulatory Patient Education Patient Education MaterialsName: Comfort Maldonado Current Date: 06/04/2018 11:43:12 [place] 1995 following sheet(s) are the Patient Education Leaflets for Comfort Maldonado Normal [facility] Gastroenterology Office/Clin ic Noteon 06-04-2018 Gastroenterology Office/Clinic [...] her being referred to Dr. Bowers at [facility] in [place]. She states that she had a colonoscopy [...] Endoscopy history: Colonoscopy done on 04/17/2018 at [facility] Constitutional: 45 pound weight loss since [...] she was placed on steroids at the [facility] GI physician. She states that she is [...] _Trang Harrison MD 06/05/18 15:58 EST Normal [facility] Vital Signs Date Time Vital Sign Value Performing Clinician Facility 05-16-2024 09:01-0400 Body weight 70.67 kg Sherry Horan [facility] Work Phone: [facility] 05-16-2024 09:01-0400 Diastolic blood pressure 64 mm[Hg] Sherry Aung DO Work Phone: [facility] 05-16-2024 09:01-0400 Systolic blood pressure 120 mm[Hg] Sherry Aung DO Work Phone: [facility] 05-15-2024 16:05-0400 Diastolic blood pressure 72 mm[Hg] [address] 05-15-2024 16:05-0400 Heart rate 93 /min [address] 05-15-2024 16:05-0400 Systolic blood pressure 110 mm[Hg] [address] 05-02-2024 09:35-0400 Body weight 68.58 kg Sayra BROWN Work Phone: [facility] 05-02-2024 09:35-0400 Diastolic blood pressure 68 mm[Hg] Sayra BROWN Work Phone: [facility] 05-02-2024 09:35-0400 Systolic blood pressure 110 mm[Hg] Sayra BROWN Work Phone: [facility] 10-25-2023 11:28-0400 Body temperature 99.1 [degF] [facility] 10-25-2023 11:28-0400 Diastolic blood pressure 62 mm[Hg] [facility] 10-25-2023 11:28-0400 Heart rate 74 /min [facility] 10-25-2023 11:28-0400 Respiratory rate 18 /min [facility] 10-25-2023 11:28-0400 Systolic blood pressure 97 mm[Hg] [facility] 10-25-2023 08:54-0400 Body mass index (BMI) [Ratio] 25.32 kg/m2 [facility] 10-25-2023 08:54-0400 Body weight 60.78 kg [facility] 08-30-2023 11:44-0500 Body temperature 98.2 [degF] [facility] 08-30-2023 11:44-0500 Diastolic blood pressure 68 mm[Hg] [facility] 08-30-2023 11:44-0500 Heart rate 73 /min [facility] 08-30-2023 11:44-0500 SaO2% (BldA) [Mass fraction] 98 % [facility] 08-30-2023 11:44-0500 Systolic blood pressure 99 mm[Hg] [facility] 08-30-2023 09:00-0500 Body mass index (BMI) [Ratio] 26.38 kg/m2 [facility] 08-30-2023 09:00-0500 Body weight 63.32 kg [facility] Encounters Encounter Date Encounter Type Care Provider Facility Start: 05-17-2024 End: 05-17-2024 Orders Only Akila Snider RN [facility] Comment on above: growth restric tion antepartum (Primary Dx); Crohn's disease of both small and large intestine with intestinal obstruction (CMS-HCC); 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 Start: 05-16-2024 End: 05-16-2024 Bamboo flowsheet Sherry Aung DO Work Phone: [facility] Start: 05-16-2024 End: 05-16-2024 Bamboo flowsheet Sherry Aung DO Work Phone: [facility] Start: 05-16-2024 End: 05-16-2024 Office outpatient visit 15 minutes Sherry Aung DO Work Phone: [facility] OB Comment on above: 32 weeks gestation o f ; Third trimester Start: 05-16-2024 End: 05-16-2024 ambulatory SHERRY AUNG Not Available Start: 05-15-2024 End: 05-15-2024 Orders Only Jenni Owen CMA [facility] Comment on above: growth restric tion antepartum [...] Not Available Start: 04-30-2024 End: 04-30-2024 ambulatory [facility] Start: 04-17-2024 End: 04-17-2024 ambulatory [facility] Start: 04-10-2024 End: 04-10-2024 ambulatory [facility] Start: 04-04-2024 End: 04-04-2024 [facility] Start: 04-02-2024 End: 04-02-2024 ambulatory [facility] Start: 03-29-2024 End: 03-29-2024 ambulatory [facility] Start: 03-28-2024 End: 03-28-2024 ambulatory [facility] Start: 03-28-2024 End: 03-28-2024 ambulatory [facility] Start: 03-19-2024 End: 03-19-2024 ambulatory YADIRA CHAU [facility] Start: 03-05-2024 End: 03-05-2024 ambulatory SAYRA ANDREWS Not Available Start: 02-29-2024 End: 02-29-2024 ambulatory SURESH Noa HOWIJean [facility] Start: 02-20-2024 End: 02-20-2024 ambulatory [facility] Start: 02-14-2024 End: 02-14-2024 ambulatory PREMA ABRAHAM [facility] Start: 02-06-2024 End: 02-06-2024 ambulatory SHERRY AUNG Not Available Start: 01-09-2024 End: 01-09-2024 ambulatory SHERRY AUNG Not Available Start: 12-20-2023 End: 12-20-2023 ambulatory PREMA ABRAHAM [facility] Start: 12-11-2023 End: 12-11-2023 ambulatory SHERRY R AUNG [facility] Start: 12-08-2023 End: 12-08-2023 ambulatory SHERRY AUNG Not Available Start: 11-30-2023 End: 11-30-2023 ambulatory SURESH DIAZ [facility] Start: 10-25-2023 End: 10-25-2023 ambulatory [facility] Dh Infusion Chair 2 [facility] Comment on above: Crohn's disease of s mall and large intestines with complication ([facility]) (Primary Dx) Start: 10-24-2023 Telephone encounter Amanda [facility] Start: 10-08-2023 End: 10-08-2023 Emergency department patient visit PREMA ABRAHAM [facility] Start: 08-30-2023 End: 08-30-2023 ambulatory [facility] Infusion Chair 1 [facility] Comment on above: Crohn's disease of s mall and large intestines with complication ([facility]) (Primary Dx) Start: 09-17-2019 End: 09-18-2019 Patient [...] in Cervix by Cyto stain Jenni Owen [facility] Start: 11-30-2023 Follow-up visit Follow-up SURESH DIAZ Start: 11-11-2021 Microscopic observat ion [Identifier] in Cervix by Cyto stain [facility] 1 Start: 03-04-2021 Adult depression scr eening assessment [facility] 1 Start: 04-14-2020 H/O: colostomy Colostomy status [facility] 1 Start: 12-03-2019 H/O: ileostomy Ileostomy status [facility] 1 Plan of Treatment Date Care Activity Detail Author Start: 02-05-2027 Screening for malign ant neoplasm of cervix Pap Smear [facility] Peixe Urbano Start: 05-17-2025 End: 05-17-2025 US MFM with or without consult US MFM with or without consult Imaging Routine growth restriction antepartum Crohn's disease of both small and large intestine with intestinal obstruction (CMS-HCC) 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 Expected: 05/17/2025 (Approximate), Expires: 05/17/2025 [email or web address] Work Phone: Comment on above: Expected: 05/17/2025 (Approximate), Expires: 05/17/2025 Start: 05-15-2025 Tobacco Screening Tobacco Screening [facility] [employer] [facility] Start: 04-17-2025 Adult BMI Screening Adult BMI Screen ing [facility] [employer] [facility] Start: 11-11-2024 Screening for malign ant neoplasm of cervix [facility] Start: 10-24-2024 Adult BMI Screening Adult BMI Screen ing [facility] [employer] [facility] Start: 10-07-2024 Tobacco Screening [facility] Start: 08-30-2024 Adult BMI Screening [facility] Start: 06-11-2024 End: 06-11-2024 Patient encounter procedure [facility] Start: 06-05-2024 End: 06-05-2024 ambulatory 06/05/2024 9:00 AM EST Infusion [facility] [address] [phone] [facility] Start: 06-03-2024 End: 06-03-2024 Patient encounter procedure 06/03/2024 8:30 AM EST Routine [facility] [address] [place] [id number] Sherry Horan DO [address] [place] [address] [facility] Start: 05-30-2024 End: 05-30-2024 Patient encounter procedure 05/30/2024 3:00 PM EDT Appointment [facility] [address] [place] [phone] [facility] Start: 05-16-2024 End: 05-16-2024 Patient encounter procedure [facility] Comment on above: Arrived Start: 05-10-2024 Tobacco Screening Tobacco Screening [facility] Start: 05-02-2024 End: 05-02-2024 Patient encounter procedure 05/02/2024 9:30 AM EDT Routine [facility] [address] [place] [id number] Sayra Andrews PA [address] [place] [address] Arrived [facility] Comment on above: Arrived Start: 03-31-2024 Influenza vaccination Influenza Vacc ine [facility] Start: 12-20-2023 End: 12-20-2023 ambulatory 12/20/2023 9:00 AM EDT Infusion [facility] [address] [place] [phone] [facility] Start: 11-30-2023 End: 11-30-2023 Patient encounter procedure 11/30/2023 9:30 AM EDT Office Visit [facility] [address] [place] [phone] Suresh Diaz MD [address] [place] [address] [facility] Start: 10-25-2023 End: 10-25-2023 ambulatory 10/25/2023 9:00 AM EDT Infusion [facility] [address] [place] [phone] [facility] Start: 03-31-2023 Influenza vaccination Influenza Vacc ine [facility] Start: 03-04-2022 Depression Screening Depression Scre ening [facility] Start: 2012 DTaP,Tdap and Td Vaccines (1 - Tdap) DTaP,Tdap and Td Vaccines (1 - Tdap) [facility] Start: 2011 Adult BMI Follow Up Plan Adult BMI Follow Up Plan [facility] Start: 2005 Depression Screening Depression Scre ening [facility] End: 10-24-2024 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[employer] Lab Routine Crohn's disease of small and large intestines with complication ([facility]) 1 Occurrences starting 10/25/2023 until 10/24/2024 [facility] Work Phone: Comment on above: 1 Occurrences starti ng 10/25/2023 until 10/24/2024 Payers Date Payer Category Payer Medicaid [id number] 2022 Medicaid [id number] 1993 Unknown [id number] 2.16.8 40.1.913645.3.579.2.196 1993 Unknown [id number] 2.16.84 0.1.605175.3.579.2.593 1993 Unknown [id number] 2.16.8 40.1.436177.3.579.2.1286 1993 Unknown [id number] 2.16.8 40.1.382947.3.579.2.1286 1993 Unknown [id number] 2.16.8 40.1.903202.3.579.2.1285 1993 Unknown [id number] 2.16.8 40.1.887969.3.579.2.1285 1993 Unknown [id number] 2.16.8 40.1.618854.3.579.2.1285 1993 Unknown [id number] 2.16.8 40.1.349811.3.579.2.1285 1993 Unknown [id number] 2.16.8 40.1.961466.3.579.2.1285 1993 Unknown [id number] 2.16.8 40.1.152770.3.579.2.1285 1993 Unknown [id number] 2.16.8 40.1.958682.3.579.2.1285 1993 Unknown [id number] 2.16.8 40.1.229309.3.579.2.1285 1993 Unknown [id number] 2.16.8 40.1.949697.3.579.2.1285 1993 Unknown [id number] 2.16.8 40.1.176653.3.579.2.1285 1993 Unknown [id number] 2.16.8 40.1.304344.3.579.2.1285 1993 Unknown [id number] 2.16.8 40.1.141763.3.579.2.1285 1993 Unknown [id number] 2.16.8 40.1.900022.3.579.2.1285 1993 Unknown [id number] 2.16.8 40.1.841380.3.579.2.1285 1993 Unknown [id number] 2.16.8 40.1.838788.3.579.2.1285 1993 Unknown [id number] 2.16.8 40.1.496087.3.579.2.1286 1993 Unknown [id number] 2.16.8 40.1.918929.3.579.2.1286 1993 Unknown [id number] 2.16.8 40.1.938838.3.579.2.1286 1993 Unknown [id number] 2.16.8 40.1.821128.3.579.2.1286 1993 Unknown [id number] 2.16.8 40.1.024052.3.579.2.1286 1993 Unknown [id number] 2.16.84 0.1.328784.3.579.2.1259 1993 Unknown [id number] 2.16.84 0.1.272307.3.579.2.1259 1993 Unknown [id number] 2.16.84 0.1.068554.3.579.2.9 1993 Unknown [id number] 2.16.84 0.1.358812.3.579.2.1259 1993 Unknown [id number] 2.16.84 0.1.700182.3.579.2.1259 1993 Unknown [id number] 2.16.84 0.1.586172.3.579.2.1259 1993 Unknown [id number] 2.16.84 0.1.493839.3.579.2.1259 1959 Self-pay [id number] 07-31-1799 Self-pay Social History Date Type Detail Facility Start: 07-05-2022 End: 12-08-2023 Tobacco smoking status NMIS Never smoked tobacco [facility] Start: 07-05-2022 End: 12-08-2023 Tobacco use and exposure Smokeless tobacco non-user [facility] Start: 05-10-2023 End: 10-08-2023 Alcohol intake Current drinker of alcohol (finding) [facility] Start: 08-10-2020 End: 05-10-2023 Alcohol intake [facility] Start: 08-06-2020 End: 08-10-2020 Social connection and isolation panel [facility] Do you belong to any clubs or organizations such as anabaptist groups, unions, fraternal or athletic groups, or school groups? No [facility] Are you now , , , , never or living with a partner? [facility] How often to you hav e a drink containing alcohol? 2-4 times a month [facility] Average Number of Drinks Not on file [facility] Do you feel stress - tense, restless, nervous, or anxious, or unable to sleep at night because your mind is troubled all the time - these days [OSQ] Only a little [facility] Start: 12-22-2021 Alcohol Comment socially [facility] Start: 1995 Sex Assigned At Not on file P [facility] Start: 05-02-2024 End: 05-15-2024 Alcoholic beverage intake Ex-drinker (finding) [facility] Start: 10-17-2023 [facility] Start: 10-16-2019 Sex Female (finding) [facility] Goals Date Patient Goal Desired Activity /State Personal health goal Comment on above: Formatting of this n ote might be different from the original. Evaluation of progress towards goal: Patient plans to return home with [facility] Clinical Notes 08-30-2023 to 05-16-2024 Paddy [...] nursing note reviewed. Exam conducted with a industrial engineer present. Vitals: There is no height or [...] Estimated Date of Delivery: 07/09/24. Discussed recent [facility] appointment with patient and delivery due to SGA & Crohn's Disease. Nursing will obtain office note from MFM appointment yesterday. Patient given order to have NST/BPP done locally at [facility]. Documented by Paddy Garza LPN on behalf of: Sherry Horan DO documented in this encounter [facility] 05-15-2024 History of Presen t illness [...] all scheduled appointments documented in this encounter [facility] 05-02-2024 History of Presen t illness [...] of: STEPHANIE Thorne documented in this encounter [facility] 10-25-2023 History of Presen t illness Narrative 0900 Patient here for Avsola infusion. Patient denies any recent infections, open wounds, recent/future surgery, or insurance changes . IV started with 22g needle to right AC by paddy gill x 1 attempt . Patient tolerated well. Avsola x 2 vials, lot# [id number], exp date Avsola x 1 vial, lot# [id number], exp date 02/27/2027 Time out performed with [...] of info given. [facility] 10-24-2023 Miscellaneous Notes Formattin g of this note might be different from the original. Patient currently receiving Avsola 5mg/kg every 8 weeks. 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 Prior auth request forms completed for Remicade 5mg/kg to be given every 56 days, faxed to [phone] Remicade approved for 5mg/kg (400mg) for 7 visits from 10/25/2023-10/23/2024. Auth # [id number] Referral placed. Therapy plan updated. Flowsheet updated. documented [facility] this [facility] 10-24-2023 Telephone encount er Note Patient currently receiving Avsola 5mg/kg every 8 weeks. 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 Prior auth request forms completed for Remicade 5mg/kg to be given every 56 days, faxed to [phone] [facility] 10-24-2023 Telephone encount er Note Remicade approved for 5mg/kg (400mg) for 7 visits from 10/25/2023-10/23/2024. Auth # [id number] Referral placed. Therapy plan updated. Flowsheet updated. [facility] 08-30-2023 History of Presen t illness Narrative 0906 Patient here for Avsola infusion. Patient denies any recent infections, open wounds, recent/future surgery, or insurance changes . Site cleansed with alcohol. IV started with 22g needle by Juan M GILL in right antecube. Patient tolerated well. 1142 patient infusion complete. IV discontinued at 1142. Patient tolerated infusion well. documented in this encounter [facility] Evaluation note Diagnosis Crohn's disease of small and large intestines with complication (CMS-HCC)- Primary documented in this encounter [facility]* Diagnosis Crohn's disease of small and large intestines with complication (CMS-HCC)- Primary documented in this encounter [facility]* Diagnosis 30 weeks gestation of - Primary Third trimester state, incidental documented in this encounter [facility]* Diagnosis Crohn's disease of both small and large intestine with intestinal obstruction (CMS-HCC)- Primary growth restriction antepartum growth restriction antepartum- Primary documented in this encounter [facility]* Diagnosis Crohn's disease of both small and large intestine with intestinal obstruction (CMS-HCC)- Primary growth restriction antepartum documented in this encounter [facility]* Diagnosis 32 weeks gestation of [...] Health SystemInstructionsNot on filedocumented in this encounter [facility] Summary Purpose Family History No [...] section and content) DATE CREATED AUTHOR 07/08/2018 [facility] DATE CREATED AUTHOR AUTHOR'S ORGANIZ ATION 09/20/2019 [facility] DATE CREATED AUTHOR AUTHOR'S ORGANIZ ATION 12/18/2019 [facility] DATE CREATED AUTHOR AUTHOR'S ORGANIZ ATION 04/03/2024 [facility] DATE CREATED AUTHOR AUTHOR'S ORGANIZ ATION 04/12/2024 [facility] DATE CREATED AUTHOR AUTHOR'S ORGANIZ ATION 05/18/2024 [facility] DATE CREATED AUTHOR AUTHOR'S ORGANIZ ATION 05/18/2024 [facility] dical Specialists EPIC Reason for [...] (AVSOLA), 10 [place] [address] [place] [id number] [facility] [address] [place] [address] Referral ID Status Reason Start Date Expiration Date V isits Requested Visits Authorized [id number] Authorized 02/02/2023 02/02/2024 7 7 Reason Comments Outpatient Infusion Avsola Reason Comments Routine Visit Reason Comments add on NST for FGR Specialty Diagnoses / Procedures Referred By Contac t Referred To Contact [facility]aternal and Medicine Diagnoses growth restriction antepartum Procedures nonstress test - Maternal Medicine Devyn Roman MD [address] [facility] [address] [address] [place] [place] [address] Phone: tel: fax: Maternal- Medicine at [address] [place] [address] Phone: tel: fax: Referral ID Status Reason Start Date Expiration Date V isits Requested Visits Authorized [id number] Pending Review 05/15/2024 05/15/2025 1 1 Care Teams (unrecognized sec tion and content) Client Retention Specialist Relationship Specialty Start Date End Date Prema Abraham MD [address] [place], [place] [id number] PCP - General Family Medicine 12/17/19 Client Retention Specialist Relationship Specialty [place] [address] [place] [address] PCP - General Family Medicine 10/08/23 Client Retention Specialist Relationship Specialty [place] [address] [place] [address] PCP - General Family Medicine 10/08/23 Client Retention Specialist Relationship Specialty Start Date End Date Prema Abraham MD [address] [place] [address] PCP - General Family Medicine 02/29/24 Client Retention Specialist Relationship Specialty Start Date End Date Prema Abraham MD [address] [place] [address] PCP - General Family Medicine 02/29/24 Client Retention Specialist Relationship Specialty Start Date End Date Prema Abraham MD [address] [place], [place] [phone] PCP - General Family Medicine 02/29/24 FOR [...] BE BASED ON THE PRIMARY CLINICAL RECORDS. [employer] provides no warranty or guarantee of the accuracy or completeness of information in this document.
[2024-05-31 08:55] VITALS: BP 129/87; PULSE 117
== END 2024-05-31 09:18 | disposition home or self-care (01) ==
LOC: FBCO 07:15 → FBC 08:49
PROVIDERS: PCP Family Medicine; Visit Provider Obstetrics & Gynecology
DX: O99.613 Diseases of the digestive system complicating pregnancy, third trimester (principal); K50.90 Crohn's disease, unspecified, without complications; Z3A.34 34 weeks gestation of pregnancy
CPT/HCPCS: 59025

== ENCOUNTER 2024-06-04 07:09 | Outpatient (OUT) | payer MEDICAID, SELFPAY ==
--- OUTSIDE RECORDS SUMMARY | 2024-06-04 07:12 | XMS_ITS | CCD ---
Author Organization [facility] Care Team Providers Care Supervisor Evaporator Name Role Phone Trang Harrison Unavailable Unavailable Prema Abraham Unavailable Unavaila PREMA Mahan Admitting Unavailable PREMA ABRAHAM Attending Unavailable PREMA ABRAHAM Primary Care Unavailable ALLISON TOWNSEND V Consulting Unavailable PREMA ABRAHAM Consulting Unavailable Prema Abraham MD Primary Care Provider [phone] Prema Abraham MD Primary Care Provider PREMA ABRAHAM Primary Care Unavailable SHERRY HORAN Referring Unavailable PREMA ABRAHAM Referring Unavailable PREMA ABRAHAM Primary Care Unavailable PREMA ABRAHAM Referring Unavailable PREMA ABRAHAM Primary Care Unavailable SURESH DIAZ Referring Unavailable Unavailable Primary Care Provider UnavailPrema Sheriff MD Primary Care Provider [phone] PREMA ABRAHAM Referring Unavailable PREMA ABRAHAM Primary Care Unavailable SURESH DIAZ Attending Unavailable PREMA ABRAHAM Referring Unavailable PREMA ABRAHAM Primary Care Unavailable PREMA ABRAHAM Referring Unavailable SHERRY HORAN Referring Unavailable DEVYN ROMAN Attending Unavailable JANNA MACDONALD Referring Unavailable SURESH DIAZ Attending Unavailable PREMA ABRAHAM Primary Care Unavailable YADIRA CHAU Attending Unavaila ble DEVYN ROMAN Referring Unavailable PREMA ABRAHAM Primary Care Unavailable YADIRA CHAU Referring Unavaila PREMA Mahan Primary Care Unavailable SHERRY HORAN R Referring Unavailable PREMA ABRAHAM Primary Care Unavailable DEVYN ROMAN Attending Unavailable ANGEL KAUFMAN Referring Unavailable PREMA ABRAHAM E Primary Care Unavailable SHERRY HORAN R Referring Unavailable PREMA ABRAHAM Primary Care Unavailable SHERRY HORAN R Referring Unavailable ABRAHAM, PREMA E Primary Care Unavailable DEVYN ROMAN Attending Unavailable AUNG, SHERRY R Referring Unavailable ABRAHAM, PREMA E Primary Care Unavailable AUNG, SHERRY R Referring Unavailable ABRAHAM, PREMA E Primary Care Unavailable ABRAHAM, PREMA E Referring Unavailable ABRAHAM, PREMA E Primary Care Unavailable PORTIA CORDOVA Referring Unavailable ABRAHAM, PREMA E Primary Care Unavailable ABRAHAM, PREMA E Referring Unavailable ABRAHAM, PREMA E Primary Care Unavailable AUNG, SHERRY R Referring Unavailable ABRAHAM, PREMA E Primary Care Unavailable AUNG, SHERRY Attending Unavailable AUNG, SHERRY Attending Unavailable JULIANA, SAYRA Attending Unavailable AUNG, SHERRY Attending Unavailable JULIANA, SAYRA Attending Unavailable AUNG, SHERRY Attending Unavailable AUNG, SHERRY Attending Unavailable Medications [...] 10/08/2023 Active cholecalciferol 0.025 mg chewable tablet (12 sources) Vitamin D Cholecalciferol 25 MCG (1000 UT) chewable tablet Chew Daily Active folic acid 1 mg oral tablet (2 sources) Start: 04-01-2024 folic acid (FOLVITE) 1 mg tablet Take 1 tablet (1,000 mcg total) by mouth. 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] Onset: 03-19-2024 05-17-2024 Chronic Genitourinary congenital anomalies (6 sources) Congenital hydronephrosis; Translations: [Congenital hydronephrosis] Onset: 12-03-2019 12-03-2019 Chronic Menstrual disorders (1 source) Irregular menstruation, unspecified; Translations: [Irregular menstruation, unspecified] Onset: 12-11-2023 Chronic Nutritional deficiencies (7 sources) Deficiency of macronutrients; Translations: [Unspecified severe protein-calorie malnutrition] Onset: 12-03-2019 Resolved: 04-14-2020 04-14-2020 Chronic Other complications of ; puerperium affecting management [...] applicable or unspecified] Onset: 03-28-2024 Episodic Other and delivery including normal (4 sources) Third trimester ; Translations: [Encounter for supervision of normal , unspecified, third trimester] 05-02-2024 Episodic Other screening for suspected conditions (not mental disorders or infectious disease) (4 sources) Encounter for other screening follow-up; Translations: [Encounter for other specified screening] Onset: 02-20-2024 Episodic Regional enteritis and ulcerative [...] (6 sources) Mood disorders Onset: 03-04-2021 03-04-2021 Nutritional deficiencies (1 source) Deficiency of other specified B group vitamins; Translations: [Deficiency of other specified B group vitamins] Onset: 02-29-2024 Episodic Open wounds of head; neck; and trunk (6 sources) Finding of sacral region; Translations: [Unspecified open wound of lower back and pelvis without penetration into retroperitoneum, initial encounter] Onset: 10-30-2019 10-30-2019 Episodic Other complications of (1 source) Supervision of high risk , unspecified, unspecified trimester; Translations: [Supervision of high risk , unspecified, unspecified trimester] Onset: 02-20-2024 Episodic Other gastrointestinal disorders (6 sources) Abdominal wall fistula; 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] Onset: 10-23-2019 10-23-2019 Episodic Other skin disorders (1 source) Skin problem Onset: 10-08-2023 Episodic Ovarian cyst (6 sources) Cyst of right ovary; Translations: [Unspecified ovarian cyst, right side] Onset: 11-11-2021 11-11-2021 Episodic Previous (1 source) Maternal care for unspecified type scar from previous delivery; Translations: [Maternal care for unspecified type scar from previous delivery] Onset: 02-20-2024 Episodic Results Test Name Value Interpretation Reference Range Facility Urinalysis macro (dipstick) panel (U)on 05-16-2024 Bilirubin, UA Negative Negative - 4(70) +++ mg/dL [facility] Blood, UA Positive Negative - 50 Kal/mcL [facility] Comment on above: trace-intact Clarity, UA Clear [facility] Color, UA Yellow [facility] Glucose, UA Negative Negative - 1999(110) ++++ mg/dL [facility] Interpretation and review of laboratory results Abnormal [facility] Ketones, UA Negative Negative - 160(16) ++++ mg/dL [facility] Leukocytes, UA Negative Negative - 500+++ Sandra/mcL [facility] Nitrite, UA Negative Negative - Positive [facility] pH, UA 6 5 - 9 [facility] Protein, UA Negative Negative - 2000(20) ++++ mg/dL [facility] Spec Grav, UA 1.025 1 - 1.03 [facility] Urobilinogen, UA 0.2 0.2 - 12 mg/dL [facility] No Panel Informationon 05-15 Patient Name: Kishor Maldonado Patient : 1995 NST Objective Findings: Variability: Moderate Decelerations: None Accelerations: Yes Acoustic Stimulator: No Baseline: 130 BPM Uterine Irritability: Yes Contractions: Not present Comments: Uterine irritability noted, intercourse this morning. [facility] instructions/handout and labor precautions reviewed. NST Interpretation: Nonstress Test Interpretation: Reactive (Devyn Roman MD) NST performed by: Aislinn Richardson RN 05/15/2024 4:30 PM [facility] M. tuberculosis stim IFN-g p venkat (Bld)on 03-29-2024 Mitogen minus Nil Result 1.22 IU/mL Normal [facility] Comment on above: Performed By: #### C AGNES, 1989-11, HA1C, CBCA, 5196-1, 19487-4, 41432-5, 2132-9, 69694-4, 8014-3, 16660-5 #### [facility] ([id number]) [address], [address] [place] [address] Nil Result 0.02 IU/mL Normal [facility] Comment on above: Result Comment: NOTE Test Performed by: [facility] [address] [place] [address] Contact Center Specialist: Donnie Sanon Ph.D.; CLIA# [id number] Performed By: #### C AGNES, 1989-11, HA1C, CBCA, 5196-1, 03379-7, 72002-1, 2-9, 52564-0, 8014-3, 27991-0 #### [facility] ([id number]) [address], [address] [place] [address] QuantiFERON-Tb Gold Plus Result Negative Normal Negative [facility] Comment on above: Result Comment: NOTE [...] #### C AGNES, 1989-11, HA1C, CBCA, 5196-1, 49886-7, 22880-0, 2132-9, 49652-9, 8014-3, 87086-2 #### [facility] ([id number]) Counts include 234 beds at the [facility], [address] [place] [address] TB1 Ag minus Nil Result NEG 0.01 Normal [facility] Comment on above: Performed By: #### C AGNES, 1989-11, HA1C, CBCA, 5196-1, 61179-1, 40061-2, 2132-9, 32907-9, 8014-3, 11445-1 #### [facility] ([id number]) [address], [address] [place] [address] TB2 Ag minus Nil Result NEG 0.01 Normal [facility] Comment on above: Performed By: #### C AGNES, 1989-11, HA1C, CBCA, 5196-1, 94375-6, 96279-8, 2132-9, 28432-0, 8014-3, 42016-7 #### [facility] ([id number]) [address], [address] [place] [address] CBC AND AUTO DIFFon 12-11-19 24 ABSOLUTE BASOPHIL 0.0 X10E9/L Normal 0.0-0.2 [facility] Comment on above: Performed By: #### C AGNES, 1989-11, HA1C, CBCA, 5196-1, 23236-1, 04485-7, 2132-9, 84008-4, 8014-3, 47013-6 #### [facility] ([id number]) [address], [address] [place] [address] ABSOLUTE NEUTROPHIL 5.5 X10E9/L Normal 1.5-6.6 [facility] Comment on above: Performed By: #### C AGNES, 1989-11, HA1C, CBCA, 5196-1, 28447-3, 61057-3, 2132-9, 88201-4, 8014-3, 07362-8 #### [facility] ([id number]) [address], [address] [place] [address] Basophils/100 WBC (Bld) 0.3 % Normal [facility] Comment on above: Performed By: #### C AGNES, 1989-11, HA1C, CBCA, 5196-1, 20652-0, 88601-4, 2-9, 55486-2, 8014-3, 41126-9 #### [facility] ([id number]) [address], [address] [place] [address] Eosinophils (Bld) [#/Vol] 0.2 10*3/uL Normal 0.0-0.4 [facility] Comment on above: Performed By: #### C AGNES, 1989-11, HA1C, CBCA, 5196-1, 39618-3, 14025-5, 2-9, 82740-8, 8014-3, 40127-2 #### [facility] ([id number]) [address], [address] [place] [address] Eosinophils/100 WBC (Bld) 2.6 % Normal [facility] Comment on above: Performed By: #### C AGNES, 1989-11, HA1C, CBCA, 5196-1, 79959-6, 43524-9, 2-9, 46251-4, 8014-3, 13868-4 #### [facility] ([id number]) [address], [address] [place] [address] Erythrocyte distribution width (RBC) [Ratio] 13.3 % Normal 11.5-15.0 [facility] Comment on above: Performed By: #### C AGNES, 1989-11, HA1C, CBCA, 5196-1, 17706-8, 09505-2, 2131-9, 81447-4, 8014-3, 19495-9 #### [facility] ([id number]) [address], [address] [place] [address] Hematocrit (Bld) [Volume fraction] 40.5 % Normal 35-47 [facility] Comment on above: Performed By: #### C AGNES, 1989-11, HA1C, CBCA, 5196-1, 36849-6, 79026-5, 2131-9, 30979-3, 8014-3, 58645-0 #### [facility] ([id number]) [address], [address] [place] [address] Hemoglobin (Bld) [Mass/Vol] 14.2 g/dL Normal 11.7-15.5 [facility] Comment on above: Performed By: #### C AGNES, 1989-11, HA1C, CBCA, 5196-1, 46459-0, 48701-0, 2131-9, 88151-4, 8014-3, 02344-1 #### [facility] ([id number]) [address], [address] [place] [address] Lymphocytes (Bld) [#/Vol] 1.3 10*3/uL Normal 1.0-3.5 [facility] Comment on above: Performed By: #### C AGNES, 1989-11, HA1C, CBCA, 5196-1, 78136-5, 40618-5, 2131-9, 56695-8, 8014-3, 88689-8 #### [facility] ([id number]) [address], [address] [place] [address] Lymphocytes/100 WBC (Bld) 18.2 % Normal [facility] Comment on above: Performed By: #### C AGNES, 1989-11, HA1C, CBCA, 5196-1, 50703-0, 43175-4, 2132-9, 77781-3, 8014-3, 06438-8 #### [facility] ([id number]) [address], [address] [place] [address] MCH (RBC) [Entitic mass] 30.7 pg Normal 27-34 [facility] Comment on above: Performed By: #### C AGNES, 1989-11, HA1C, CBCA, 5196-1, 98595-4, 13193-5, 2132-9, 77773-3, 8014-3, 97504-4 #### [facility] ([id number]) [address], [address] [place] [address] MCHC (RBC) [Mass/Vol] 35.2 g/dL Normal 32-36 [facility] Comment on above: Performed By: #### C AGNES, 1989-11, HA1C, CBCA, 5196-1, 77680-7, 02898-7, 2132-9, 83445-1, 8014-3, 81309-0 #### [facility] ([id number]) [address], [address] [place] [address] MCV (RBC) [Entitic vol] 87 fL Normal 80-100 [facility] Comment on above: Performed By: #### C AGNES, 1989-11, HA1C, CBCA, 5196-1, 07221-2, 13547-7, 2132-9, 80710-1, 8014-3, 51769-0 #### [facility] ([id number]) [address], [address] [place] [address] Monocytes (Bld) [#/Vol] 0.4 10*3/uL Normal 0-0.9 [facility] Comment on above: Performed By: #### C AGNES, 1989-11, HA1C, CBCA, 5196-1, 20829-1, 08404-9, 2132-9, 24162-3, 8014-3, 91735-5 #### [facility] ([id number]) [address], [address] [place] [address] Monocytes/100 WBC (Bld) 5.1 % Normal [facility] Comment on above: Performed By: #### C AGNES, 1989-11, HA1C, CBCA, 5196-1, 88110-0, 67807-4, 2132-9, 02361-6, 8014-3, 73297-9 #### [facility] ([id number]) [address], [address] [place] [address] Neutrophils/100 WBC (Bld) 73.8 % Normal [facility] Comment on above: Performed By: #### C AGNES, 1989-11, HA1C, CBCA, 5196-1, 61874-4, 80498-1, 2131-9, 50812-7, 8014-3, 32187-4 #### [facility] ([id number]) [address], [address] [place] [address] Platelet mean volume (Bld) [Entitic vol] 9.1 fL Normal 7-12 [facility] Comment on above: Performed By: #### C AGNES, 1989-11, HA1C, CBCA, 5196-1, 04914-9, 73486-5, 2131-9, 38521-6, 8014-3, 12150-8 #### [facility] ([id number]) [address], [address] [place] [address] Platelets (Bld) [#/Vol] 254 10*3/uL Normal 150-450 [facility] Comment on above: Performed By: #### C AGNES, 1989-11, HA1C, CBCA, 5196-1, 98614-4, 15490-9, 2132-9, 71432-7, 8014-3, 77734-0 #### [facility] ([id number]) [address], [address] [place] [address] RBC COUNT 4.63 X10E12/L Normal 3.80-5.20 [facility] Comment on above: Performed By: #### C AGNES, 1989-11, HA1C, CBCA, 5196-1, 75139-2, 84466-5, 2132-9, 18248-7, 8014-3, 27136-3 #### [facility] ([id number]) [address], [address] [place] [address] WBC (Bld) [#/Vol] 7.4 10*3/uL Normal 4.0-11.0 [facility] Comment on above: Performed By: #### C AGNES, 1989-11, HA1C, CBCA, 5196-1, 17106-0, 01314-6, 2132-9, 33635-6, 8014-3, 81349-0 #### [facility] ([id number]) [address], [address] [place] [address] COMPREHENSIVE METABOLIC PANE Jesse 12-11-2023 Albumin [Mass/Vol] 4.3 g/dL Normal 3.2-5.3 [facility] Comment on above: Performed By: #### C AGNES, 1989-11, HA1C, CBCA, 5196-1, 02071-9, 49121-9, 2132-9, 77312-4, 8014-3, 52680-0 #### [facility] ([id number]) [address], [address] [place] [address] ALP [Catalytic activity/Vol] 48 U/L Normal 39-130 [facility] Comment on above: Performed By: #### C AGNES, 1989-11, HA1C, CBCA, 5196-1, 56790-2, 21228-8, 2132-9, 85216-0, 8014-3, 51423-6 #### [facility] ([id number]) [address], [address] [place] [address] ALT [Catalytic activity/Vol] 13 U/L Normal 0-31 [facility] Comment on above: Performed By: #### C AGNES, 1989-11, HA1C, CBCA, 5196-1, 97804-7, 60809-9, 2131-9, 64329-9, 8014-3, 31604-4 #### [facility] ([id number]) [address], [address] [place] [address] Anion gap [Moles/Vol] 10 mmol/L Normal 5-15 [facility] Comment on above: Performed By: #### C AGNES, 1989-11, HA1C, CBCA, 5196-1, 91079-2, 53636-4, 2131-9, 81920-3, 8014-3, 43273-2 #### [facility] ([id number]) [address], [address] [place] [address] AST [Catalytic activity/Vol] 17 U/L Normal 0-41 [facility] Comment on above: Performed By: #### C AGNES, 1989-11, HA1C, CBCA, 5196-1, 15809-0, 76608-9, 2131-9, 21507-7, 8014-3, 63445-3 #### [facility] ([id number]) [address], [address] [place] [address] Bilirubin [Mass/Vol] 0.7 mg/dL Normal 0.3-1.2 [facility] Comment on above: Performed By: #### C AGNES, 1989-11, HA1C, CBCA, 5196-1, 71418-2, 73349-1, 2131-9, 89670-6, 8014-3, 56212-4 #### [facility] ([id number]) [address], [address] [place] [address] Calcium [Mass/Vol] 9.5 mg/dL Normal 8.5-10.5 [facility] Comment on above: Performed By: #### C MP, 1989-11, HA1C, CBCA, 5196-1, 94731-0, 87908-4, 2132-9, 16066-7, 8014-3, 24506-0 #### [facility] ([id number]) [address], [address] [place] [address] Chloride [Moles/Vol] 104 mmol/L Normal 98-109 [facility] Comment on above: Performed By: #### C AGNES, 1989-11, HA1C, CBCA, 5196-1, 42266-7, 70544-7, 2132-9, 64545-0, 8014-3, 23211-3 #### [facility] ([id number]) [address] [place] [address] CO2 [Moles/Vol] 23 mmol/L Normal 22-32 [facility] Comment on above: Performed By: #### C AGNES, 1989-11, HA1C, CBCA, 5196-1, 10503-3, 89157-4, 2132-9, 45469-1, 8014-3, 72186-0 #### [facility] ([id number]) [address], [address] [place] [address] Creatinine [Mass/Vol] 0.49 mg/dL Normal 0.40-1.00 [facility] Comment on above: Result Comment: METH OD TRACEABLE TO IDMS STANDARD Performed By: #### C AGNES, 1989-11, HA1C, CBCA, 5196-1, 91513-5, 53505-6, 2132-9, 72128-5, 8014-3, 67198-8 #### [facility] ([id number]) [address], [address] [place] [address] eGFR (CKD-EPI) NON-RACE DEPENDENT >90 Normal >59 [facility] Comment on above: Result Comment: Reported eGFR is based on the CKD-EPI 2020 equation that does not use a race coefficient. Performed By: #### C AGNES, 1989-11, HA1C, CBCA, 5196-1, 22779-0, 78413-5, 2131-9, 53467-2, 8014-3, 77143-6 #### [facility] ([id number]) [address], [address] [place] [address] Glucose [Mass/Vol] 92 mg/dL Normal 65-99 [facility] Comment on above: Performed By: #### C AGNES, 1989-11, HA1C, CBCA, 5196-1, 51388-7, 95148-5, 2131-9, 62309-0, 8014-3, 89884-5 #### [facility] ([id number]) [address], [address] [place] [address] Potassium [Moles/Vol] 4.1 mmol/L Normal 3.5-5.0 [facility] Comment on above: Performed By: #### C AGNES, 1989-11, HA1C, CBCA, 5196-1, 83032-9, 61221-9, 2131-9, 90033-3, 8014-3, 40203-4 #### [facility] ([id number]) [address], [address] [place] [address] Protein [Mass/Vol] 7.5 g/dL Normal 6.0-8.0 [facility] Comment on above: Performed By: #### C AGNES, 1989-11, HA1C, CBCA, 5196-1, 45916-2, 86247-3, 2131-9, 80280-2, 8014-3, 70401-5 #### [facility] ([id number]) [address], [address] [place] [address] Sodium [Moles/Vol] 137 mmol/L Normal 134-146 [facility] Comment on above: Performed By: #### C AGNES, 1989-11, HA1C, CBCA, 5196-1, 32854-8, 07534-1, 2131-9, 12888-2, 8014-3, 95708-8 #### [facility] ([id number]) [address], [address] [place] [address] Urea nitrogen [Mass/Vol] 6 mg/dL Normal 5-23 [facility] Comment on above: Performed By: #### C AGNES, 1989-11, HA1C, CBCA, 5196-1, 74779-4, 81976-8, 2131-9, 45590-0, 8014-3, 63357-4 #### [facility] ([id number]) [address], [address] [place] [address] CRP [Mass/Vol]on 12-11-2023 C REACTIVE PROTEIN 0.5 mg/dL Normal 0.000-0.744 [facility] Comment on above: Performed By: #### C AGNES, 1989-11, HA1C, CBCA, 5196-1, 97989-1, 60558-7, 9, 66459-1, 8014-3, 87550-4 #### [facility] ([id number]) [address], [address] [place] [address] HBV surface Ag IA [facility] 12-10 HEPATITIS B SURF AG Negative Normal NEG [facility] Comment on above: Performed By: #### C AGNES, 1989-11, HA1C, CBCA, 5196-1, 70202-4, 15258-2, 9, 40671-3, 8014-3, 72694-6 #### [facility] ([id number]) [address], [address] [place] [address] HCV Ab IA [facility] 12-11-2023 ANTI HCV W/PCR REFLX Non-Reactive Normal NRCT Pr [facility] Comment on above: Result Comment: If recent infection suspected, recommend repeat testing (>2 months). Qpynps-lv-eeopok ratio is <0.80. Performed By: #### C AGNES, 1989-11, HA1C, CBCA, 5196-1, 24270-5, 37851-5, 2132-9, 77815-0, 8014-3, 10359-9 #### [facility] ([id number]) [address] [place] [address], [address] [place] [address] HGB A1C (GLYCO-HGB)on 2023 Glucose [Mass/Vol] 103 mg/dL Normal [facility] Comment on above: Performed By: #### C AGNES, 1989-11, HA1C, CBCA, 5196-1, 45746-4, 23938-7, 2131-9, 54699-6, 8014-3, 44508-1 #### [facility] ([id number]) [address] [place] [address], [facility] [address] [place] [address] HbA1c (Bld) [Mass fraction] 5.2 % Normal 4.4-5.6 [facility] Comment on above: Result Comment: NOTE ADA Guidelines Result HgbA1c Normal : less than 5.7 % Prediabetes : 5.7 % to 6.4 % Diabetes : > 6.4 % Use with caution in patients with abnormal hemoglobin variants as the half-life of red blood cells and in vivo glycation rates are affected. Performed By: #### C AGNES, 1989-11, HA1C, CBCA, 5196-1, 19916-6, 92505-7, 2131-9, 31931-1, 8014-3, 33163-3 #### [facility] ([id number]) [address] [place] [address], [facility] [address] [place] [address] HIV 1+2 Ab+HIV1 p24 Ag IA Ql on 12-11-2023 HIV 1 and 2 Ab/Ag Screen Non-Reactive Normal NRCT [facility] Comment on above: Result Comment: This [...] test results or diagnoses. Performed By: #### Clyde ALARCON, 1989-11, HA1C, CBCA, 5196-1, 76635-9, 32100-4, 2131-9, 73327-2, 8014-3, 12865-4 #### [facility] ([id number]) [address] [place] [address], [address] [place] [address] Rubella virus IgG Qn (S)on 0 12-11-2023 RUBELLA IgG 30 IU/mL Normal [facility] Comment on above: Result Comment: Interpretation-------- <8 NEGATIVE-considered Not Immune 8-9 EQUIVOCAL-consider retesting with new specimen >9 POSITIVE-considered Immune Performed By: #### Clyde ALARCON, 1989-11, HA1C, CBCA, 5196-1, 08374-9, 53215-7, 2131-9, 96816-3, 8014-3, 59628-9 #### [facility] ([id number]) [address] [place] [address], [address] [place] [address] T. pallidum IgG+IgM IA Ql (S )on 12-11-2023 Syphilis Total <0.2 Normal 0.0-0.8 [facility] Comment on above: Result Comment: NON REACTIVE No serologic evidence of infection to Treponema pallidum (syphilis). Repeat testing may be considered in patients with suspected acute or primary syphilis in 2 to 4 weeks. Performed By: ###Em Tang MP, 1989-11, HA1C, CBCA, 5196-1, 00940-0, 49597-7, 2131-9, 30921-0, 8014-3, 48191-0 #### [facility] ([id number]) [address] [facility], [address] [place] [address] VITAMIN B12on 12-11-2023 Cobalamin (Vitamin B12) [Mass/Vol] 142 pg/mL Low [phone] [facility] Comment on above: Performed By: #### C AGNES, 1989-11, HA1C, CBCA, 5196-1, 80853-1, 45460-3, 2132-03, 09152-3, 8014-3, 82465-9 #### [facility] ([id number]) [address] [facility], [address] [place] [address] Vitamin D+Metabolites [Mass/ Vol]on 12-11-2023 VITAMIN D 25 HYD TOT 21.8 ng/mL Low 30-100 [facility] Comment on above: Result Comment: Vitamin D status 25 [place] Vitamin D Deficiency <20 ng/mL Insufficiency 20-29 ng/mL Sufficiency 30-100 ng/mL Toxicity >100 ng/mL NOTE: A pediatric reference range has not been established by the laser beam machine operator of this kit. The [place] [employer] recommends a Vitamin D level of = or >20ng/mL in infants and children. Performed By: #### C , 1989-11, HA1C, CBCA, 5196-1, 04266-8, 73204-2, 2132-03, 07729-8, 8014-3, 88869-2 #### [facility] ([id number]) [address] [facility], [address] [place] [address] SARS/FLU A+B/RSV by NAAT/Mol ecularon 10-08-2023 SARS/FLU [...] operators who are performing tests using either Sinch or Novalact systems and is limited to laboratories that [...] repeat. Fact Sheet for Healthcare Providers: https://www.fda.gov/media /488348/download Fact Sheet for Patients: https://www.fda.gov/media /523616/download Normal [facility] Comment on above: Performed By: #### C OVFLR #### [facility] ([id number]) [address] [place] [address], [place] [address] Consultation Noteon 12-18-19 20 Consultation Note [id number]:12 7 Normal [facility] Ambulatory Patient Education on 06-04-2018 Ambulatory Patient Education Patient Education MaterialsName: Comfort Maldonado Current Date: 06/04/2018 11:43:12 [place] 1995 following sheet(s) are the Patient Education Leaflets for Comfort Maldonado [facility] Gastroenterology Office/Clin ic Noteon 06-04-2018 Gastroenterology Office/Clinic [...] her being referred to Dr. Bowers at [facility] in [place]. She states that she had a colonoscopy [...] Endoscopy history: Colonoscopy done on 04/17/2018 at [facility] Constitutional: 45 pound weight loss [...] she was placed on steroids at the [facility] GI physician. She states that she is [...] _Trang Harrison MD 06/05/18 15:58 EST Normal [facility] Vital Signs Date Time Vital Sign Value Performing Clinician Facility 05-16-2024 09:01-0400 Body weight 70.67 kg Sherry Horan DO Work Phone: [facility] 05-16-2024 09:01-0400 Diastolic blood pressure 64 mm[Hg] Sherry Aung DO Work Phone: [facility] 05-16-2024 09:01-0400 Systolic blood pressure 120 mm[Hg] Sherry Aung DO Work Phone: [facility] 05-15-2024 16:05-0400 Diastolic blood pressure 72 mm[Hg] [facility] 05-15-2024 16:05-0400 Heart rate 93 /min [address] 05-15-2024 16:05-0400 Systolic blood pressure 110 mm[Hg] [address] 05-02-2024 09:35-0400 Body weight 68.58 kg Sayra BROWN Work Phone: [facility] 05-02-2024 09:35-0400 Diastolic blood pressure 68 mm[Hg] Sayra BROWN Work Phone: [facility] 05-02-2024 09:35-0400 Systolic blood pressure 110 mm[Hg] Sayra BROWN Work Phone: [facility] 10-25-2023 11:28-0400 Body temperature 99.1 [degF] [facility] 10-25-2023 11:28-0400 Diastolic blood pressure 62 mm[Hg] [facility] 10-25-2023 11:28-0400 Heart rate 74 /min [facility] 10-25-2023 11:28-0400 Respiratory rate 18 /min [facility] 10-25-2023 11:28-0400 Systolic blood pressure 97 mm[Hg] [facility] 10-25-2023 08:54-0400 Body mass index (BMI) [Ratio] 25.32 kg/m2 [facility] 10-25-2023 08:54-0400 Body weight 60.[address] [facility] 08-30-2023 11:44-0500 Body temperature 98.2 [degF] [facility] 08-30-2023 11:44-0500 Diastolic blood pressure 68 mm[Hg] [facility] 08-30-2023 11:44-0500 Heart rate 73 /min [facility] 08-30-2023 11:44-0500 SaO2% (BldA) [Mass fraction] 98 % [facility] 08-30-2023 11:44-0500 Systolic blood pressure 99 mm[Hg] [facility] 08-30-2023 09:00-0500 Body mass index (BMI) [Ratio] 26.38 kg/m2 [facility] 08-30-2023 09:00-0500 Body weight 63.[address] [facility] Encounters Encounter Date Encounter Type Care Provider Facility Start: 06-03-2024 End: 06-03-2024 Bamboo Digitalsmithsheet Sherry Aung DO Work Phone: [facility] Start: 06-03-2024 End: 06-03-2024 Bamboo flowsheet Sherry Aung DO Work Phone: [facility] Start: 06-03-2024 End: 06-03-2024 ambulatory SHERRY AUNG Not Available Start: 05-30-2024 End: 05-30-2024 ambulatory SHERRY R [facility] Start: 05-17-2024 End: 05-17-2024 Orders Only Akila Snider RN Maternal- Medicine at [facility] Comment on above: growth restric tion antepartum (Primary Dx); Crohn's disease of both small and large intestine with intestinal obstruction (CMS-HCC); 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 Start: 05-16-2024 End: 05-16-2024 Bamboo flowsheet Sherry Aung DO Work Phone: [facility] Start: 05-16-2024 End: 05-16-2024 Bamboo flowsheet Sherry Aung DO Work Phone: [facility] Start: 05-16-2024 End: 05-16-2024 Office outpatient visit 15 minutes Sherry Aung DO Work Phone: [facility] Comment on above: 32 weeks gestation o f ; Third trimester Start: 05-16-2024 End: 05-16-2024 ambulatory SHERRY AUNG Not Available Start: 05-15-2024 End: 05-15-2024 Orders Only Jenni Owen [facility] Maternal- Medicine at [facility] Comment on above: growth restric tion antepartum [...] Not Available Start: 04-30-2024 End: 04-30-2024 ambulatory [facility] Start: 04-17-2024 End: 04-17-2024 ambulatory SHERRY R [facility] Start: 04-10-2024 End: 04-10-2024 ambulatory [facility] Start: 04-04-2024 End: 04-04-2024 ambulatory SHERRY AUNG Not Available Start: 04-02-2024 End: 04-02-[address] [facility] Start: 03-29-2024 End: 03-29-2024 ambulatory [facility] Start: 03-28-2024 End: 03-28-2024 ambulatory DEVYN ROMAN [facility] Start: 03-28-2024 End: 03-28-2024 ambulatory SHERRY R [facility] Start: 03-19-2024 End: 03-19-2024 ambulatory YADIRA CHAU [facility] Start: 03-05-2024 End: 03-05-2024 ambulatory SAYRA ANDREWS Not Available Start: 02-29-2024 End: 02-29-2024 ambulatory SURESH DIAZ [facility] Start: 02-20-2024 End: 02-20-2024 ambulatory SHERRY R [facility] Start: 02-14-2024 End: 02-14-2024 ambulatory PREMA [facility] Start: 02-06-2024 End: 02-06-2024 ambulatory SHERRY AUNG Not Available Start: 01-09-2024 End: 01-09-2024 ambulatory SHERRY AUNG Not Available Start: 12-20-2023 End: 12-20-2023 ambulatory PREMA Green ABRAHAM [facility] Start: 12-11-2023 End: 12-11-2023 ambulatory SHERRY R [facility] Start: 12-08-2023 End: 12-08-2023 ambulatory SHERRY AUNG Not Available Start: 11-30-2023 End: 11-30-[address] [facility] Start: 10-25-2023 End: 10-25-2023 [facility] 2 [facility] Comment on above: Crohn's disease of s mall and large intestines with complication (CMS-HCC) (Primary Dx) Start: 10-24-2023 Telephone encounter Amanda [facility] Start: 10-08-2023 End: 10-08-2023 Emergency department patient visit PREMA ABRAHAM [facility] Start: 08-30-2023 End: 08-30-[address] [facility] Infusion Chair 1 [facility] Comment on above: Crohn's disease of s mall and large intestines with complication (CMS-HCC) (Primary Dx) Start: 09-17-2019 End: 09-18-2019 Patient encounter procedure PREMA ABARHAM Facility: Start: 06-04-2018 End: 06-05-2018 Patient encounter procedure Trang Cornelius Terrazasdi Facility:[facility] Procedures Date Procedure Procedure Detail Performing Clinician Start: 05-16-2024 Urnls dip stick/tabl et rgnt non-auto w/o micrscp Sherry Horan DO Work Phone: Start: 05-15-2024 nonstress test Na colin Roman MD Work Phone: Start: 02-06-2024 Microscopic observat ion [Identifier] in Cervix by Cyto stain Jenni Owen CMA Start: 11-30-2023 Follow-up visit Follow-up SURESH Latham JOE Start: 11-11-2021 Microscopic observat ion [Identifier] in Cervix by Cyto stain Wlc 1 Start: 03-04-2021 Adult depression scr eening assessment Wl 1 Start: 04-14-2020 H/O: colostomy Colostomy status Wlc 1 Start: 12-03-2019 H/O: ileostomy Ileostomy status Wlc 1 Plan of Treatment Date Care Activity Detail Author Start: 02-05-2027 Screening for malign ant neoplasm of cervix Pap Smear [facility] Start: 05-17-2025 End: 05-17-2025 US MFM with or without consult US MFM with or without consult Imaging Routine growth restriction antepartum Crohn's disease of both small and large intestine with intestinal obstruction (CMS-HCC) 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 Expected: 05/17/2025 (Approximate), Expires: 05/17/2025 Cylex Work Phone: Comment on above: Expected: 05/17/2025 (Approximate), Expires: 05/17/2025 Start: 05-15-2025 Tobacco Screening Tobacco Screening [facility] Start: 04-17-2025 Adult BMI Screening Adult BMI Screen ing [facility] Start: 11-11-2024 Screening for malign ant neoplasm of cervix Pap Smear [facility] Start: 10-24-2024 Adult BMI Screening Adult BMI Screen ing [facility] Start: 10-07-2024 Tobacco Screening Tobacco Screening [facility] Start: 08-30-2024 Adult BMI Screening Adult BMI Screen ing [facility] Start: 06-11-2024 End: 06-11-2024 Patient encounter procedure Maternal- Medicine at [facility] Start: 06-05-2024 End: 06-05-2024 ambulatory 06/05/2024 9:00 AM EST Infusion [facility] [address] [facility] [address] [place] [address] [facility] Start: 06-03-2024 End: 06-03-2024 Patient encounter procedure [facility] Comment on above: Arrived Start: 05-30-2024 End: 05-30-2024 Patient encounter procedure 05/30/2024 3:00 PM EDT Appointment [facility] [address] [place] [address] [facility] Start: 05-16-2024 End: 05-16-2024 Patient encounter procedure [facility] Comment on above: Arrived Start: 05-10-2024 Tobacco Screening Tobacco Screening [facility] Start: 05-02-2024 End: 05-02-2024 Patient encounter procedure 05/02/2024 9:30 AM EDT Routine [facility] [address] [place] [address] Sayra Andrews PA [address] [place] [address] Arrived [facility] Comment on above: Arrived Start: 03-31-2024 Influenza vaccination Influenza Vacc ine [facility] Start: 12-20-2023 End: 12-20-2023 ambulatory 12/20/2023 9:00 AM EDT Infusion [facility] [address] [place] [address] [facility] Start: 11-30-2023 End: 11-30-2023 Patient encounter procedure 11/30/2023 9:30 AM EDT Office Visit [facility] [address] [place] [address] Suresh Diaz MD [address] [facility] [address] [place] [address] [facility] Start: 10-25-2023 End: 10-25-2023 ambulatory 10/25/2023 9:00 AM EDT Infusion [facility] [address] [place] [address] [facility] Start: 03-31-2023 Influenza vaccination Influenza Vacc ine [facility] Start: 03-04-2022 Depression Screening Depression Scre ing [facility] Start: 2012 DTaP,Tdap and Td Vaccines (1 - Tdap) DTaP,Tdap and Td Vaccines (1 - Tdap) [facility] Start: 2011 Adult BMI Follow Up Plan Adult BMI Follow Up Plan [facility] Start: 2005 Depression Screening Depression Scre [facility] End: 10-24-2024 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Quantiferon Gold Lab Routine Crohn's disease of small and large intestines with complication ([facility]-HCC) 1 Occurrences starting 10/25/2023 until 10/24/2024 [facility] Work Phone: Comment on above: 1 Occurrences starti ng 10/25/2023 until 10/24/2024 Payers Date Payer Category Payer Medicaid [id number] 2022 Medicaid [id number] 1995 Unknown [id number] 2.16.8 40.1.705079.3.579.2.196 1993 Unknown [id number] 2.16.84 0.1.614980.3.579.2.593 1993 Unknown [id number] 2.16.8 40.1.297624.3.579.2.1285 1993 Unknown [id number] 2.16.8 40.1.254244.3.579.2.1285 1993 Unknown [id number] 2.16.8 40.1.776664.3.579.2.1285 1993 Unknown [id number] 2.16.8 40.1.912641.3.579.2.1285 1993 Unknown [id number] 2.16.8 40.1.760283.3.579.2.1285 1993 Unknown [id number] 2.16.8 40.1.579793.3.579.2.1285 1993 Unknown [id number] 2.16.8 40.1.124671.3.579.2.1285 1993 Unknown [id number] 2.16.8 40.1.275478.3.579.2.1285 1993 Unknown [id number] 2.16.8 40.1.244072.3.579.2.1285 1993 Unknown [id number] 2.16.8 40.1.363326.3.579.2.1285 1993 Unknown [id number] 2.16.8 40.1.880148.3.579.2.1285 1993 Unknown [id number] 2.16.8 40.1.720857.3.579.2.1285 1993 Unknown [id number] 2.16.8 40.1.788616.3.579.2.1285 1993 Unknown [id number] 2.16.8 40.1.328819.3.579.2.1285 1993 Unknown [id number] 2.16.8 40.1.617210.3.579.2.1285 1993 Unknown [id number] 2.16.8 40.1.391103.3.579.2.1286 1993 Unknown [id number] 2.16.8 40.1.276266.3.579.2.1286 1993 Unknown [id number] 2.16.8 40.1.651004.3.579.2.1286 1993 Unknown [id number] 2.16.8 40.1.852575.3.579.2.1286 1993 Unknown [id number] 2.16.8 40.1.779357.3.579.2.1286 1993 Unknown [id number] 2.16.8 40.1.683573.3.579.2.1286 1993 Unknown [id number] 2.16.8 40.1.027492.3.579.2.1286 1993 Unknown [id number] 2.16.8 40.1.201621.3.579.2.1286 1993 Unknown [id number] 2.16.84 0.1.258636.3.579.2.1259 1993 Unknown [id number] 2.16.84 0.1.529380.3.579.2.9 1993 Unknown [id number] 2.16.84 0.1.972616.3.579.2.1259 1993 Unknown [id number] 2.16.84 0.1.308664.3.579.2.9 1993 Unknown [id number] 2.16.84 0.1.830059.3.579.2.1259 1993 Unknown [id number] 2.16.84 0.1.328622.3.579.2.1258 1993 Unknown [id number] 2.16.84 0.1.092081.3.579.2.9 1993 Unknown [id number] 2.16.84 0.1.314710.3.579.2.1259 1959 Self-pay [id number] 07-31-1799 Self-pay Social History Date Type Detail Facility Start: 07-05-2022 End: 12-08-2023 Tobacco smoking status NHIS Never smoked tobacco [facility] Start: 07-05-2022 End: 12-08-2023 Tobacco use and exposure Smokeless tobacco non-user [facility] Start: 05-10-2023 End: 10-08-2023 Alcohol intake Current drinker of alcohol (finding) [facility] Start: 05-10-2023 End: 12-08-2023 Alcohol intake [facility] Start: 08-06-2020 End: 12-08-2023 Social connection and isolation panel [facility] Do you belong to any clubs or organizations such as sikhism groups, unions, fraternal or athletic groups, or school groups? No [facility] Are you now , , , , never or living with a partner? [facility] How often to you hav e a drink containing alcohol? 2-4 times a month [facility] Average Number of Drinks Not on file [facility] Do you feel stress - tense, restless, nervous, or anxious, or unable to sleep at night because your mind is troubled all the time - these days [OSQ] Only a little [facility] Start: 12-22-2021 Alcohol Comment socially [facility] Start: 1995 Sex Assigned At Not on file P [facility] Start: 05-02-2024 End: 05-16-2024 Alcoholic beverage intake Ex-drinker (finding) [facility] Start: 10-17-2023 [facility] Start: 10-16-2019 Sex Female (finding) [facility] Goals Date Patient Goal Desired Activity /State Personal health goal Comment on above: Formatting of this n ote might be different from the original. Evaluation of progress towards goal: Patient plans to return home with [facility] Clinical Notes 08-30-2023 to 05-16-2024 Paddy [...] nursing note reviewed. Exam conducted with a customer quality specialist present. Vitals: There is no height or [...] Estimated Date of Delivery: 07/09/24. Discussed recent [facility] appointment with patient and delivery due to SGA & Crohn's Disease. Nursing will obtain office note from MFM appointment yesterday. Patient given order to have NST/BPP done locally at [facility]. Documented by Paddy Garza LPN on behalf of: Sherry Horan DO documented in this encounter [facility] 05-15-2024 History of Presen t illness Narrative [...] all scheduled appointments documented in this encounter [facility] 05-02-2024 History of Presen t illness [...] of: STEPHANIE Thorne documented in this encounter [facility] 10-25-2023 History of Presen t illness Narrative 0900 Patient here for Avsola infusion. Patient denies any recent infections, open wounds, recent/future surgery, or insurance changes . IV started with 22g needle to right AC by paddy gill x 1 attempt . Patient tolerated well. Avsola x 2 vials, lot# [id number], exp date Avsola x 1 vial, lot# [id number], exp date 02/27/2027 Time out performed with [...] of info given. documented in this encounter [facility] 10-24-2023 Miscellaneous Notes Formattin g of this note might be different from the original. Patient currently receiving Avsola 5mg/kg every 8 weeks. 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 Prior auth request forms completed for Remicade 5mg/kg to be given every 56 days, faxed to [phone] Remicade approved for 5mg/kg (400mg) for 7 visits from 10/25/2023-10/23/2024. Auth # [id number] Referral placed. Therapy plan updated. Flowsheet updated. documented in this encounter [facility] 10-24-2023 Telephone encount er Note Patient currently receiving Avsola 5mg/kg every 8 weeks. 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 Prior auth request forms completed for Remicade 5mg/kg to be given every 56 days, faxed to [phone] [facility] 10-24-2023 Telephone encount er Note Remicade approved for 5mg/kg (400mg) for 7 visits from 10/25/2023-10/23/2024. Auth # [id number] Referral placed. Therapy plan updated. Flowsheet updated. [facility] 08-30-2023 History of Presen t illness Narrative 0906 Patient here for Avsola infusion. Patient denies any recent infections, open wounds, recent/future surgery, or insurance changes . Site cleansed with alcohol. IV started with 22g needle by Juan M GILL in right antecube. Patient tolerated well. 1142 patient infusion complete. IV discontinued at 1142. Patient tolerated infusion well. documented in this encounter [facility] Evaluation note Diagnosis Crohn's disease of small and large intestines with complication (CMS-HCC)- Primary documented in this encounter [facility]* Diagnosis Crohn's disease of small and large intestines with complication (CMS-HCC)- Primary documented in this encounter [facility]* Diagnosis 30 weeks gestation of - Primary Third trimester state, incidental documented in this encounter [facility] Healthcare[facility]* Diagnosis Crohn's disease of both small and large intestine with intestinal obstruction (CMS-HCC)- Primary growth restriction antepartum growth restriction antepartum- Primary [facility] Diagnosis Crohn's disease of both small and large intestine with intestinal obstruction (CMS-HCC)- Primary growth restriction antepartum [facility] Diagnosis 32 weeks [...] Health SystemInstructionsNot on filedocumented in this encounter [facility] Summary Purpose Family History No [...] section and content) DATE CREATED AUTHOR 07/08/2018 [facility] DATE CREATED AUTHOR AUTHOR'S ORGANIZ ATION 09/20/2019 [facility] DATE CREATED AUTHOR AUTHOR'S ORGANIZ ATION 12/18/2019 [facility] DATE CREATED AUTHOR AUTHOR'S ORGANIZ ATION 04/03/2024 [facility] DATE CREATED AUTHOR AUTHOR'S ORGANIZ ATION 04/12/20[facility] DATE CREATED AUTHOR AUTHOR'S ORGANIZ ATION 06/01/2024 [facility] DATE CREATED AUTHOR AUTHOR'S ORGANIZ ATION 06/03/2024 [facility] d[facility] Specialists EPIC Reason for Visit (unrecogniz ed section and content) Reason Comments Outpatient Infusion [facility] Specialty Diagnoses / Procedures Referred By Contac t Referred To Contact Gastroenterology Diagnoses Crohn's disease of both small and large intestine with unspecified complications Renflexis 400mg q8 weeks, 7 visits, 02.02.23 - 24, HK/CF, Crohn's Procedures INJECTION, INFLIXIMAB-AXXQ, BIOSIMILAR, (AVSOLA), 10 MG INFUSION Prema Abraham MD [address] [place] [address] [address] Referral ID Status Reason Start Date Expiration Date V isits Requested Visits Authorized [id number] Authorized 02/02/2023 02/02/2024 7 7 Reason Comments Outpatient Infusion [facility] Reason Comments Routine Visit Reason Comments add on NST for [facility] Specialty Diagnoses / Procedures Referred By Contac t Referred To Contact Maternal and Medicine Diagnoses growth restriction antepartum Procedures nonstress test - Maternal Medicine Devyn Roman MD [address] [facility] [address] [place] [address] Phone: tel: fax: Maternal- Medicine at [facility] [address] [place] [address] Phone: tel: fax: Referral ID Status Reason Start Date Expiration Date V isits Requested Visits Authorized [id number] Pending Review 05/15/2024 05/15/2025 1 1 Care Teams (unrecognized sec tion and content) Supervisor Evaporator Relationship Specialty Start Date End Date Prema Abraham MD [address] [place] [address] PCP - General Family Medicine 5/19/20 Supervisor Evaporator Relationship Specialty Start Date End Date Prema Abraham MD [address] [place] [address] PCP - General Family Medicine 10/08/23 Supervisor Evaporator Relationship Specialty Start Date End Date Prema Abraham MD [address] [place] [address] [id number] PCP - General Family [place] [facility] 10/08/23 Supervisor Evaporator Relationship Specialty Start Date End Date Prema Abraham MD [address] [place] [address] [phone] PCP - General Family [facility] 02/29/24 Supervisor Evaporator Relationship Specialty Start Date End Date Prema Abraham MD [address] [place] [address] [phone] PCP - [facility] 02/29/24 Supervisor Evaporator Relationship Specialty Start Date End Date Prema Abraham MD [address] [place] [address] [phone] PCP - General Family [facility] 02/29/24 FOR RECORDS PERTAINING TO PATIENTS WHO [...] BE BASED ON THE PRIMARY CLINICAL RECORDS. [employer] [facility]. provides no warranty or guarantee of the accuracy or completeness of information in this document.
--- NOTE | 2024-06-04 08:57 | US_ITS ---
[address] [address] Patient Name: ZAINAB SAAVEDRA MRN: [id number] date: 1995 Sex: F Assigned Patient Location: [facility] Current Patient Location: Accession/Order Number: [id number] Exam Date: 06/04/2024 09:00 Report Date: 06/04/2024 09:51 At the request of: SHERRY REYNA Procedure: US OB BPP w non-stress EXAMINATION: US OB BPP w non-stress HISTORY: Crohn's disease with complication COMPARISON: No relevant comparison available. TECHNIQUE: Ultrasound biophysical profile was performed in the radiology department. non-reactive stress testing was performed by nursing staff in the birthing center. FINDINGS: BREATHING MOVEMENTS: 2 GROSS BODY MOVEMENTS: 2 TONE: 2 QUALITATIVE AMNIOTIC FLUID VOLUME: 2 PRESENTATION: CEPHALIC HEART RATE: 133.00 bpm AMNIOTIC FLUID VOLUME: 15.9 cm GESTATIONAL AGE: 35 weeks 0 days US/US OB BPP w non-stress IMPRESSION: Total biophysical profile score: 8 Electronically authenticated by: ALLISON TOWNSEND Date: 06/04/2024 09:51
[2024-06-04 09:00] VITALS: BP 127/87; PULSE 110
== END 2024-06-04 09:38 | disposition home or self-care (01) ==
LOC: US 07:09 → FBC 08:55
PROVIDERS: PCP Family Medicine; Visit Provider Obstetrics & Gynecology
DX: O99.613 Diseases of the digestive system complicating pregnancy, third trimester (principal); Z3A.35 35 weeks gestation of pregnancy
CPT/HCPCS: 76818

== ENCOUNTER 2024-06-07 07:07 | Outpatient (OUT) | payer MEDICAID, SELFPAY ==
--- OUTSIDE RECORDS SUMMARY | 2024-06-07 07:10 | XMS_ITS | CCD ---
Author Organization [facility] Care Team Providers Care Card Services Specialist Name Role Phone Trang Harrison Unavailable Unavailable Prema Abraham Unavailable Unavaila PREMA Mahan Admitting Unavailable PREMA ABRAHAM Attending Unavailable PREMA ABRAHAM Primary Care Unavailable ALLISON TOWNSEND V Consulting Unavailable PREMA ABRAHAM Consulting Unavailable Prema Abraham MD Primary Care Provider Prema Abraham MD Primary Care Provider PREMA ABRAHAM Primary Care Unavailable AUNG, SHERRY R Referring Unavailable PREMA ABRAHAM Referring Unavailable PREMA ABRAHAM Primary Care Unavailable Unavailable Primary Care Provider UnavailPrema Sheriff MD Primary Care Provider PREMA ABRAHAM Referring Unavailable PREMA ABRAHAM Primary Care Unavailable SURESH DIAZ Attending Unavailable PREMA ABRAHAM Referring Unavailable PREMA ABRAHAM E Primary Care Unavailable PREMA ABRAHAM Referring Unavailable AUNG, SHERRY R Referring Unavailable DEVYN ROMAN Attending Unavailable JANNA MACDONALD Referring Unavailable SURESH DIAZ Attending Unavailable PREMA ABRAHAM E Primary Care Unavailable YADIRA CHAU Attending Unavaila ble DEVYN ROMAN Referring Unavailable PREMA ABRAHAM E Primary Care Unavailable YADIRA CHAU Referring Unavaila ble PREMA ABRAHAM E Primary Care Unavailable AUNG, SHERRY R Referring Unavailable PREMA ABRAHAM E Primary Care Unavailable DEVYN ROMAN Attending Unavailable ANGEL KAUFMAN Referring Unavailable PREMA ABRAHAM E Primary Care Unavailable AUNG, SHERRY R Referring Unavailable PREMA ABRAHAM E Primary Care Unavailable AUNG, SHERRY R Referring Unavailable PREMA ABRAHAM E Primary Care Unavailable DEVYN ROMAN Attending [...] SHERRY Attending Unavailable AUNG, SHERRY Attending Unavailable ABRAHAM, PREMA E Referring Unavailable ABRAHAM, PREMA E Primary Care Unavailable LIVIAVINCESURESH KING Referring Unavailable ABRAHAM, PREMA E Referring Unavailable ABRAHAM, PREMA E Primary Care Unavailable Medications Current Medications Medication [...] 10/08/2023 Active cholecalciferol 0.025 mg chewable tablet (15 sources) Vitamin D cholecalciferol, vitamin D3, 25 mcg (1,000 unit) tablet,chewable Chew and swallow daily. Active folic acid 1 mg oral tablet (3 sources) Start: 04-01-2024 folic acid (FOLVITE) 1 mg tablet Take 1 tablet (1,000 mcg total) by mouth. 04/01/2024 Active inFLIXimab-axxq 100 mg injection (17 sources) Tumor Necrosis Factor Leo Start: 12-06-2020 [...] 10 tablet 0 10/08/2023 Active Vit-Fe Fumarate-FA ([employer] VITAMINS PO) (9 sources) Start: 11-16-2023 take 1 dose by mouth once daily Vit-Fe Fumarate-FA ([employer] VITAMINS PO) 1 each Daily 11/16/2023 Active vit37/iron/folic acid (PRENATA ORAL) (7 sources) vit37/iron/folic acid (PRENATA ORAL) Take by mouth daily. Active vit37/i diana/folic acid (PRENATA ORAL) Take by mouth daily. 0 Active pyridoxine hydrochloride 25 mg oral tablet (3 sources) Start: 04-03-2024 vitamin B-6 25 MG [...] Drug Class(es) Dates Sig (Normalized) Sig (Original) inFLIXimab (REMICADE) 5 mg/kg = 300 mg in sodium chloride 0.9 % 250 mL IVPB (1 source) Start: 06-05-2024 End: 06-05-2024 300 mg (rounded from 319 mg = 5 mg/kg 63.8 kg), intravenous, Once, On Mon06/05/24 at 0930, For 1 dose, Infuse over at least 2 hours: For 250 mL total volume: 10 mL/hr x 15 min, then 20 mL/hr x 15 min, then 40 mL/hr x 15 min, then 80 mL/hr x 15 min, then 150 mL/hr x 30 min, then 250 mL/hr until infusion complete. Adjust rates respectively for other volumes. Look-alike/sound-ali ke medication - verify indication for use. Administer using 0.2 - 1.2 micron filter. 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] Onset: 12-03-2019 12-03-2019 Chronic Menstrual disorders (1 source) Irregular menstruation, unspecified; Translations: [Irregular menstruation, unspecified] Onset: 12-11-2023 Chronic Other complications of ; puerperium affecting management of mother (2 sources) 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 05-17-2024 Episodic Other complications of (6 sources) growth restriction; Translations: [Maternal care for other known or suspected poor growth, unspecified trimester, not applicable or unspecified] 05-15-2024 Episodic Other complications of (4 sources) Poor growth affecting management; Translations: [Maternal [...] 03-28-2024 Episodic Other and delivery including normal (6 sources) Third trimester ; Translations: [Encounter for [...] [32 weeks gestation of ] 05-16-2024 Episodic Residual codes; unclassified (2 sources) Gestation period, 34 weeks; Translations: [34 weeks gestation of ] 06-03-2024 Episodic Spondylosis; intervertebral disc disorders; other back problems (4 sources) Sciatica, right side; Translations: [SCIATICA RIGHT SIDE] Onset: 09-17-2019 Episodic Unclassified (1 source) Cold Like Symptoms Onset: 10-08-2023 Unclassified (1 source) Bleeding from stomach Onset: 10-08-2023 Unclassified (1 source) Maternal care for other (suspected) abnormality and damage, cardiac anomalies, not applicable or unspecified; Translations: [Maternal care for other (suspected) abnormality and damage, cardiac anomalies, not applicable or unspecified] Onset: 03-19-2024 Unclassified (1 source) Hx C/S Onset: 02-20-2024 Unclassified (2 sources) Outpatient Infusion Onset: 10-25-2023 Past or Other Problems Problem Classification Problem Date Documented Da te Episodic/Chronic Anal and rectal conditions (8 sources) Stricture of rectum; 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] Onset: 04-14-2020 04-14-2020 Episodic Influenza (1 source) Influenza due to other identified influenza virus with other respiratory manifestations; Translations: [Influenza due to other identified influenza virus with other respiratory manifestations] Onset: 10-08-2023 Episodic Mood disorders (7 sources) Mood disorders Onset: 03-04-2021 03-04-2021 Nutritional deficiencies (8 sources) Deficiency of macronutrients; Translations: [Unspecified severe protein-calorie malnutrition] Onset: 12-03-2019 Resolved: 04-14-2020 04-14-2020 Chronic Nutritional deficiencies (1 source) Deficiency of other specified B group vitamins; Translations: [Deficiency of other specified B group vitamins] Onset: 02-29-2024 Episodic Open wounds of head; neck; and trunk (7 sources) Finding of sacral region; Translations: [Unspecified open wound of lower back and pelvis without penetration into retroperitoneum, initial encounter] Onset: 10-30-2019 10-30-2019 Episodic Other complications of (1 source) Supervision of high risk , unspecified, unspecified trimester; Translations: [Supervision of high risk , unspecified, unspecified trimester] Onset: 02-20-2024 Episodic Other gastrointestinal disorders (7 sources) Abdominal wall fistula; 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] Onset: 10-23-2019 10-23-2019 Episodic Other skin disorders (1 source) Skin problem Onset: 10-08-2023 Episodic Ovarian cyst (7 sources) Cyst of right ovary; Translations: [Unspecified ovarian cyst, right side] Onset: 11-11-2021 11-11-2021 Episodic Previous (1 source) Maternal care for unspecified type scar from previous delivery; Translations: [Maternal care for unspecified type scar from previous delivery] Onset: 02-20-2024 Episodic Results Test Name Value Interpretation Reference Range Facility Urinalysis macro (dipstick) panel (U)on 06-03-2024 Bilirubin, UA Negative Negative - 4(70) +++ mg/dL [facility] Blood, UA Negative Negative - 50 Kal/mcL [facility] Clarity, UA Clear [facility] Color, UA Yellow [facility] Glucose, UA Negative Negative - 1999(110) ++++ mg/dL [facility] Interpretation and review of laboratory results Normal [facility] Ketones, UA Negative Negative - 160(16) ++++ mg/dL [facility] Leukocytes, UA Negative Negative - 500+++ Sandra/mcL [facility] Nitrite, UA Negative Negative - Positive [facility] pH, UA 5.5 5 - 9 [facility] Protein, UA Negative Negative - 1999(20) ++++ mg/dL [facility] Spec Grav, UA 1.03 1 - 1.03 [facility] Urobilinogen, UA 0.2 0.2 - 12 mg/dL [facility] Urinalysis macro (dipstick) panel (U)on 05-16-2024 Bilirubin, UA Negative Negative - 4(70) +++ mg/dL [facility] Blood, UA Positive Negative - 50 Kal/mcL [facility] Comment on above: trace-intact Clarity, UA Clear [facility] Color, UA Yellow [facility] Glucose, UA Negative Negative - 1999(110) ++++ mg/dL [facility] Interpretation and review of laboratory results Abnormal [facility] Ketones, UA Negative Negative - 160(16) ++++ mg/dL [facility] Leukocytes, UA Negative Negative - 500+++ Sandra/mcL [facility] Nitrite, UA Negative Negative - Positive [facility] pH, UA 6 5 - 9 [facility] Protein, UA Negative Negative - 1999(20) ++++ mg/dL [facility] Spec Grav, UA 1.025 1 - 1.03 [facility] Urobilinogen, UA 0.2 0.2 - 12 mg/dL [facility] No Panel Informationon 05-15 Patient Name: Kishor Maldonado Patient : 1995 NST Objective Findings: Variability: Moderate Decelerations: None Accelerations: Yes Acoustic Stimulator: No Baseline: 130 BPM Uterine Irritability: Yes Contractions: Not present Comments: Uterine irritability noted, intercourse this morning. [facility] instructions/handout and labor precautions reviewed. NST Interpretation: Nonstress Test Interpretation: Reactive (Devyn Roman MD) NST performed by: Aislinn Richardson RN 05/15/2024 4:30 PM [facility] M. tuberculosis stim IFN-g p venkat (Bld)on 03-29-2024 Mitogen minus Nil Result 1.22 IU/mL Normal [facility] Comment on above: Performed By: #### C AGNES, 1989-11, HA1C, CBCA, 5196-1, 39525-6, 06314-6, 2132-9, 79496-1, 8014-3, 43766-7 #### [facility] ([id number]) [address], [address] [place] [address] Nil Result 0.02 IU/mL Normal [facility] Comment on above: Result Comment: NOTE Test Performed by: [facility] [address] [facility] [address] [place] [address] Principal Statistical Programmer: Donnie Sanon Ph.D.; CLIA# [id number] Performed By: #### C AGNES, 1989-11, HA1C, CBCA, 5196-1, 31942-9, 01693-4, 2132-9, 98849-5, 8014-3, 86902-4 #### [facility] ([id number]) [address], [address] [place] [address] QuantiFERON-Tb Gold Plus Result Negative Normal Negative [facility] Comment on above: Result Comment: [...] #### C AGNES, 1989-11, HA1C, CBCA, 5196-1, 49864-4, 90546-8, 2132-9, 06009-3, 8014-3, 15524-2 #### [facility] ([id number]) [address], [address] [place] [address] TB1 Ag minus Nil Result NEG 0.01 Normal [facility] Comment on above: Performed By: #### C AGNES, 1989-11, HA1C, CBCA, 5196-1, 65613-4, 27377-8, 2132-9, 75731-5, 8014-3, 40047-0 #### [facility] ([id number]) [address], [address] [place] [address] TB2 Ag minus Nil Result NEG 0.01 Normal [facility] Comment on above: Performed By: #### C AGNES, 1989-11, HA1C, CBCA, 5196-1, 22089-2, 14701-9, 2132-9, 64035-3, 8014-3, 42137-8 #### [facility] ([id number]) [address], [address] [place] [address] CBC AND AUTO DIFFon 12-11-19 24 ABSOLUTE BASOPHIL 0.0 X10E9/L Normal 0.0-0.2 [facility] Comment on above: Performed By: #### C AGNES, 1989-11, HA1C, CBCA, 5196-1, 03598-4, 88917-8, 2132-9, 64525-3, 8014-3, 50595-6 #### [facility] ([id number]) [address], [address] [place] [address] ABSOLUTE NEUTROPHIL 5.5 X10E9/L Normal 1.5-6.6 [facility] Comment on above: Performed By: #### C AGNES, 1989-11, HA1C, CBCA, 5196-1, 81870-5, 46107-6, 2-9, 01409-9, 8014-3, 53683-6 #### [facility] ([id number]) [address], [address] [place] [address] Basophils/100 WBC (Bld) 0.3 % Normal [facility] Comment on above: Performed By: #### C AGNES, 1989-11, HA1C, CBCA, 5196-1, 65333-6, 92727-1, 2-9, 13406-8, 8014-3, 22710-1 #### [facility] ([id number]) [address], [address] [place] [address] Eosinophils (Bld) [#/Vol] 0.2 10*3/uL Normal 0.0-0.4 [facility] Comment on above: Performed By: #### C AGNES, 1989-11, HA1C, CBCA, 5196-1, 99142-4, 21032-4, 2131-9, 96350-9, 8014-3, 21204-8 #### [facility] ([id number]) [address], [address] [place] [address] Eosinophils/100 WBC (Bld) 2.6 % Normal [facility] Comment on above: Performed By: #### C AGNES, 1989-11, HA1C, CBCA, 5196-1, 55233-1, 98099-3, 2-9, 60952-1, 8014-3, 21322-9 #### [facility] ([id number]) [address], [address] [place] [address] Erythrocyte distribution width (RBC) [Ratio] 13.3 % Normal 11.5-15.0 [facility] Comment on above: Performed By: #### C AGNES, 1989-11, HA1C, CBCA, 5196-1, 01787-6, 45407-4, 2132-9, 59991-1, 8014-3, 81952-5 #### [facility] ([id number]) [address], [address] [place] [address] Hematocrit (Bld) [Volume fraction] 40.5 % Normal 35-47 [facility] Comment on above: Performed By: #### C AGNES, 1989-11, HA1C, CBCA, 5196-1, 32173-7, 04409-5, 2-9, 68889-8, 8014-3, 86811-4 #### [facility] ([id number]) [address], [address] [place] [address] Hemoglobin (Bld) [Mass/Vol] 14.2 g/dL Normal 11.7-15.5 [facility] Comment on above: Performed By: #### Clyde ALARCON, 1989-11, HA1C, CBCA, 5196-1, 13929-0, 09469-3, 2-9, 71453-5, 8014-3, 87624-1 #### [facility] ([id number]) [address], [address] [place] [address] Lymphocytes (Bld) [#/Vol] 1.3 10*3/uL Normal 1.0-3.5 [facility] Comment on above: Performed By: #### Clyde ALARCON, 1989-11, HA1C, CBCA, 5196-1, 05869-2, 79412-5, 2131-9, 45850-0, 8014-3, 96935-2 #### [facility] ([id number]) [address], [address] [place] [address] Lymphocytes/100 WBC (Bld) 18.2 % Normal [facility] Comment on above: Performed By: #### Clyde ALARCON, 1989-11, HA1C, CBCA, 5196-1, 20732-8, 43821-9, 2132-9, 64982-1, 8014-3, 97541-4 #### [facility] ([id number]) [address], [address] [place] [address] MCH (RBC) [Entitic mass] 30.7 pg Normal 27-34 [facility] Comment on above: Performed By: #### C AGNES, 1989-11, HA1C, CBCA, 5196-1, 90337-3, 32733-7, 2131-9, 29111-8, 8014-3, 17440-6 #### [facility] ([id number]) [address], [address] [place] [address] MCHC (RBC) [Mass/Vol] 35.2 g/dL Normal 32-36 [facility] Comment on above: Performed By: #### C AGNES, 1989-11, HA1C, CBCA, 5196-1, 88870-4, 45455-8, 2131-9, 81520-7, 8014-3, 79901-5 #### [facility] ([id number]) [address], [address] [place] [address] MCV (RBC) [Entitic vol] 87 fL Normal 80-100 [facility] Comment on above: Performed By: #### C AGNES, 1989-11, HA1C, CBCA, 5196-1, 87434-0, 18152-3, 2131-9, 74459-0, 8014-3, 44895-1 #### [facility] ([id number]) [address], [address] [place] [address] Monocytes (Bld) [#/Vol] 0.4 10*3/uL Normal 0-0.9 [facility] Comment on above: Performed By: #### C AGNES, 1989-11, HA1C, CBCA, 5196-1, 28722-6, 03389-8, 2131-9, 85846-7, 8014-3, 89247-6 #### [facility] ([id number]) [address], [address] [place] [address] Monocytes/100 WBC (Bld) 5.1 % Normal [facility] Comment on above: Performed By: #### C AGNES, 1989-11, HA1C, CBCA, 5196-1, 42481-1, 76460-0, 2-9, 77095-6, 8014-3, 96138-2 #### [facility] ([id number]) [address], [address] [place] [address] Neutrophils/100 WBC (Bld) 73.8 % Normal [facility] Comment on above: Performed By: #### C AGNES, 1989-11, HA1C, CBCA, 5196-1, 86224-0, 39045-3, 2131-9, 16402-0, 8014-3, 70352-3 #### [facility] ([id number]) [address], [address] [place] [address] Platelet mean volume (Bld) [Entitic vol] 9.1 fL Normal 7-12 [facility] Comment on above: Performed By: #### C AGNES, 1989-11, HA1C, CBCA, 5196-1, 73620-4, 11778-2, 2131-9, 58359-2, 8014-3, 51939-7 #### [facility] ([id number]) [address], [address] [place] [address] Platelets (Bld) [#/Vol] 254 10*3/uL Normal 150-450 [facility] Comment on above: Performed By: #### C AGNES, 1989-11, HA1C, CBCA, 5196-1, 85810-9, 23000-7, 2131-9, 82691-7, 8014-3, 43044-3 #### [facility] ([id number]) [address], [address] [place] [address] RBC COUNT 4.63 X10E12/L Normal 3.80-5.20 [facility] Comment on above: Performed By: #### C AGNES, 1989-11, HA1C, CBCA, 5196-1, 15972-9, 27478-1, 2131-9, 62420-7, 8014-3, 97888-6 #### [facility] ([id number]) [address], [address] [place] [address] WBC (Bld) [#/Vol] 7.4 10*3/uL Normal 4.0-11.0 [facility] Comment on above: Performed By: #### C AGNES, 1989-11, HA1C, CBCA, 5196-1, 40590-9, 74629-4, 2131-9, 13177-2, 8014-3, 47112-7 #### [facility] ([id number]) [address], [address] [place] [address] COMPREHENSIVE METABOLIC PANE Jesse 12-11-2023 Albumin [Mass/Vol] 4.3 g/dL Normal 3.2-5.3 [facility] Comment on above: Performed By: #### C AGNES, 1989-11, HA1C, CBCA, 5196-1, 39707-8, 87757-8, 2131-9, 03912-8, 8014-3, 70748-1 #### [facility] ([id number]) [address], [address] [place] [address] ALP [Catalytic activity/Vol] 48 U/L Normal 39-130 [facility] Comment on above: Performed By: #### C AGNES, 1989-11, HA1C, CBCA, 5196-1, 85739-4, 26795-5, 2131-9, 14040-1, 8014-3, 87098-7 #### [facility] ([id number]) [address], [address] [place] [address] ALT [Catalytic activity/Vol] 13 U/L Normal 0-31 [facility] Comment on above: Performed By: #### C AGNES, 1989-11, HA1C, CBCA, 5196-1, 89989-4, 46295-7, 2132-9, 25634-7, 8014-3, 71260-6 #### [facility] ([id number]) [address] [place] [address] Anion gap [Moles/Vol] 10 mmol/L Normal 5-15 [facility] Comment on above: Performed By: #### C AGNES, 1989-11, HA1C, CBCA, 5196-1, 16063-3, 40429-9, 2131-9, 16813-5, 8014-3, 48327-0 #### [facility] ([id number]) [address] [place] [address] AST [Catalytic activity/Vol] 17 U/L Normal 0-41 [facility] Comment on above: Performed By: #### C AGNES, 1989-11, HA1C, CBCA, 5196-1, 97428-6, 87202-9, 2131-9, 54989-9, 8014-3, 99991-3 #### [facility] ([id number]) [address] [place] [address] Bilirubin [Mass/Vol] 0.7 mg/dL Normal 0.3-1.2 [facility] Comment on above: Performed By: #### C AGNES, 1989-11, HA1C, CBCA, 5196-1, 60162-0, 28134-7, 2131-9, 25703-0, 8014-3, 94227-0 #### [facility] ([id number]) [address], [address] [place] [address] Calcium [Mass/Vol] 9.5 mg/dL Normal 8.5-10.5 [facility] Comment on above: Performed By: #### C AGNES, 1989-11, HA1C, CBCA, 5196-1, 41155-7, 36458-1, 2131-9, 42897-6, 8014-3, 90810-2 #### [facility] ([id number]) [address], [address] [place] [address] Chloride [Moles/Vol] 104 mmol/L Normal 98-109 [facility] Comment on above: Performed By: #### C AGNES, 1989-11, HA1C, CBCA, 5196-1, 73142-1, 32854-6, 2132-03, 01333-0, 8014-3, 41417-1 #### [facility] ([id number]) [address], [address] [place] [address] CO2 [Moles/Vol] 23 mmol/L Normal 22-32 [facility] Comment on above: Performed By: #### C AGNES, 1989-11, HA1C, CBCA, 5196-1, 97878-0, 97928-1, 2132-03, 60659-8, 8014-3, 12119-0 #### [facility] ([id number]) [address], [address] [place] [address] Creatinine [Mass/Vol] 0.49 mg/dL Normal 0.40-1.00 [facility] Comment on above: Result Comment: METH OD TRACEABLE TO IDMS STANDARD Performed By: #### C AGNES, 1989-11, HA1C, CBCA, 5196-1, 73446-7, 36576-3, 2132-03, 22708-9, 8014-3, 41498-4 #### [facility] ([id number]) [address], [address] [place] [address] eGFR (CKD-EPI) NON-RACE DEPENDENT >90 Normal >59 [facility] Comment on above: Result Comment: Reported eGFR is based on the CKD-EPI 2020 equation that does not use a race coefficient. Performed By: #### C AGNES, 1989-11, HA1C, CBCA, 5196-1, 73045-7, 97313-1, 2132-03, 54197-9, 8014-3, 72008-7 #### [facility] ([id number]) [address], [address] [place] [address] Glucose [Mass/Vol] 92 mg/dL Normal 65-99 [facility] Comment on above: Performed By: #### C AGNES, 1989-11, HA1C, CBCA, 5196-1, 21639-5, 15780-9, 2131-9, 49569-8, 8014-3, 28935-4 #### [facility] ([id number]) [address], [address] [place] [address] Potassium [Moles/Vol] 4.1 mmol/L Normal 3.5-5.0 [facility] Comment on above: Performed By: #### C AGNES, 1989-11, HA1C, CBCA, 5196-1, 94235-2, 92817-8, 2131-9, 97902-8, 8014-3, 46897-7 #### [facility] ([id number]) [address], [address] [place] [address] Protein [Mass/Vol] 7.5 g/dL Normal 6.0-8.0 [facility] Comment on above: Performed By: #### C AGNES, 1989-11, HA1C, CBCA, 5196-1, 98206-2, 18379-0, 2131-9, 86801-8, 8014-3, 00115-5 #### [facility] ([id number]) [address], [address] [place] [address] Sodium [Moles/Vol] 137 mmol/L Normal 134-146 [facility] Comment on above: Performed By: #### C AGNES, 1989-11, HA1C, CBCA, 5196-1, 78704-9, 47712-4, 2131-9, 06128-4, 8014-3, 00315-9 #### [facility] ([id number]) [address], [address] [place] [address] Urea nitrogen [Mass/Vol] 6 mg/dL Normal 5-23 [facility] Comment on above: Performed By: #### C AGNES, 1989-11, HA1C, CBCA, 5196-1, 25999-7, 24626-5, 2132-9, 32978-8, 8014-3, 28153-2 #### [facility] ([id number]) [address], [address] [place] [address] CRP [Mass/Vol]on 12-11-2023 C REACTIVE PROTEIN 0.5 mg/dL Normal 0.000-0.744 [facility] [place] Comment on above: Performed By: #### C AGNES, 1989-11, HA1C, CBCA, 5196-1, 08001-1, 91123-1, 2132-9, 19175-8, 8014-3, 52312-5 #### [facility] ([id number]) [address], [address] [place] [address] HBV surface Ag IA Qlon 12-10 HEPATITIS B SURF AG Negative Normal NEG [facility] Comment on above: Performed By: #### C AGNES, 1989-11, HA1C, CBCA, 5196-1, 81676-5, 50951-4, 2132-9, 10255-9, 8014-3, 92039-3 #### [facility] ([id number]) [address], [address] [place] [address] HCV Ab IA Qlon 12-11-2023 ANTI HCV W/PCR REFLX Non-Reactive Normal NRCT Pr [facility] Comment on above: Result Comment: If recent infection suspected, recommend repeat testing (>2 months). Cfhmnu-vr-eocwhs ratio is <0.80. Performed By: #### C AGNES, 1989-11, HA1C, CBCA, 5196-1, 51922-3, 89637-0, 2132-9, 42203-2, 8014-3, 85543-4 #### [facility] ([id number]) [address] [place] [address], [address] [place] [address] HGB A1C (GLYCO-HGB)on 2023 Glucose [Mass/Vol] 103 mg/dL Normal [facility] Comment on above: Performed By: #### C AGNES, 1989-11, HA1C, CBCA, 5196-1, 41986-4, 74650-1, 2131-9, 25629-1, 8014-3, 78752-9 #### [facility] ([id number]) [address] [place] [address], [address] [place] [address] HbA1c (Bld) [Mass fraction] 5.2 % Normal 4.4-5.6 [facility] Comment on above: Result Comment: NOTE ADA Guidelines Result HgbA1c Normal : less than 5.7 % Prediabetes : 5.7 % to 6.4 % Diabetes : > 6.4 % Use with caution in patients with abnormal hemoglobin variants as the half-life of red blood cells and in vivo glycation rates are affected. Performed By: #### C AGNSE, 1989-11, HA1C, CBCA, 5196-1, 72059-4, 93348-7, 2131-9, 98091-7, 8014-3, 37283-7 #### [facility] ([id number]) [address] [place] [address], [address] [place] [address] HIV 1+2 Ab+HIV1 p24 Ag IA Ql on 12-11-2023 HIV 1 and 2 Ab/Ag Screen Non-Reactive Normal NRCT [facility] Comment on above: Result Comment: [...] #### Clyde ALARCON, 1989-11, HA1C, CBCA, 5196-1, 39891-6, 41476-5, 2132-9, 63750-2, 8014-3, 11167-4 #### [facility] ([id number]) [address] [place] [address], [address] [place] [address] Rubella virus IgG Qn (S)on 0 12-11-2023 RUBELLA IgG 30 IU/mL Normal [facility] Comment on above: Result Comment: Interpretation-------- <8 NEGATIVE-considered Not Immune 8-9 EQUIVOCAL-consider retesting with new specimen >9 POSITIVE-considered Immune Performed By: #### Clyde ALARCON, 1989-11, HA1C, CBCA, 5196-1, 27166-5, 62736-8, 2132-9, 81461-5, 8014-3, 90464-4 #### [facility] ([id number]) [address] [place] [address], [address] [place] [address] T. pallidum IgG+IgM IA Ql (S )on 12-11-2023 Syphilis Total <0.2 Normal 0.0-0.8 [facility] Comment on above: Result Comment: NON REACTIVE No serologic evidence of infection to Treponema pallidum (syphilis). Repeat testing may be considered in patients with suspected acute or primary syphilis in 2 to 4 weeks. Performed By: ###Em Tang MP, 1989-11, HA1C, CBCA, 5196-1, 61496-4, 15974-7, 2132-9, 67387-5, 8014-3, 94557-3 #### [facility] ([id number]) [address] [place] [address], [address] [place] [address] VITAMIN B12on 12-11-2023 Cobalamin (Vitamin B12) [Mass/Vol] 142 pg/mL Low 180-914 [facility] Comment on above: Performed By: #### C AGNES, 1989-11, HA1C, CBCA, 5196-1, 15494-8, 03256-1, 2132-9, 91878-1, 8014-3, 19854-0 #### [facility] ([id number]) [address] [place] [address], [address] [place] [address] Vitamin D+Metabolites [Mass/ Vol]on 12-11-2023 VITAMIN D 25 HYD TOT 21.8 ng/mL Low 30-100 [facility] Comment on above: Result Comment: Vitamin D status 25 [place] Vitamin D Deficiency <20 ng/mL Insufficiency 20-29 ng/mL Sufficiency 30-100 ng/mL Toxicity >100 ng/mL NOTE: A pediatric reference range has not been established by the regional otr company driver of this kit. The [place] [employer] recommends a Vitamin D level of = or >20ng/mL in infants and children. Performed By: #### C AGNES, 1989-11, HA1C, CBCA, 5196-1, 04306-2, 93408-3, 2-9, 45038-9, 8014-3, 15070-4 #### [facility] ([id number]) [address] [place] [address], [address] [place] [address] SARS/FLU A+B/RSV by NAAT/Mol ecularon 10-08-2023 SARS/FLU [...] operators who are performing tests using either [employer] or [employer] systems and is limited to laboratories that [...] repeat. Fact Sheet for Healthcare Providers: https://www.fda.gov/media /403830/download Fact Sheet for Patients: https://www.fda.gov/media /565993/download Normal [facility] Comment on above: Performed By: #### C OVFLR #### [facility] ([id number]) [address] [place] [address], [place] [address] Consultation Noteon 12-18-19 Consultation Note [id number] 7 Normal [facility] Ambulatory Patient Education on 06-04-2018 Ambulatory Patient Education Patient Education MaterialsName: Comfort Maldonado Current Date: 06/04/2018 11:43:12 [place] 1995 following sheet(s) are the Patient Education Leaflets for Comfort Maldonado Normal [facility] Gastroenterology Office/Clin ic Noteon 06-04-2018 Gastroenterology [...] her being referred to Dr. Bowers at [facility] in [place]. She states that she had a colonoscopy [...] Endoscopy history: Colonoscopy done on 04/17/2018 at [facility] Constitutional: 45 pound weight loss since [...] was placed on steroids at the [facility] GI physician. She states that she [...] _Trang Harrison MD 06/05/18 15:58 EST Normal [facility] Vital Signs Date Time Vital Sign Value Performing Clinician Facility 06-05-2024 09:00-0500 Body mass index (BMI) [Ratio] 26.55 kg/m2 [facility] 06-05-2024 09:00-0500 Body temperature 98.4 [degF] [facility] [address] [facility] 06-05-2024 09:00-0500 Body weight 63.78 kg [facility] 1 [facility] 06-05-2024 09:00-0500 Diastolic blood pressure 73 mm[Hg] [facility] 1 [facility] 06-05-2024 09:00-0500 Heart rate 99 /min [facility] 1 [facility] 06-05-2024 09:00-0500 Respiratory rate 16 /min [facility] 1 [facility] 06-05-2024 09:00-0500 Systolic blood pressure 114 mm[Hg] [facility] 1 [facility] 06-03-2024 08:25-0500 Body weight 70.76 kg Sherry Aung DO Work Phone: [facility] 06-03-2024 08:25-0500 Diastolic blood pressure 68 mm[Hg] Sherry Aung DO Work Phone: [facility] 06-03-2024 08:25-0500 Systolic blood pressure 114 mm[Hg] Sherry Aung DO Work Phone: [facility] 05-16-2024 09:01-0400 Body weight 70.67 kg Sherry Aung DO Work Phone: [facility] 05-16-2024 09:01-0400 Diastolic blood pressure 64 mm[Hg] Sherry Aung DO Work Phone: [facility] 05-16-2024 09:01-0400 Systolic blood pressure 120 mm[Hg] Sherry Aung DO Work Phone: [facility] 05-15-2024 16:05-0400 Diastolic blood pressure 72 mm[Hg] [address] 05-15-2024 16:05-0400 Heart rate 93 /min [address] 05-15-2024 16:05-0400 Systolic blood pressure 110 mm[Hg] [address] 05-02-2024 09:35-0400 Body weight 68.58 kg Sayra BROWN Work Phone: [facility] 05-02-2024 09:35-0400 Diastolic blood pressure 68 mm[Hg] Sayra BROWN Work Phone: [facility] 05-02-2024 09:35-0400 Systolic blood pressure 110 mm[Hg] Sayra BROWN Work Phone: [facility] 10-25-2023 11:28-0400 Body temperature 99.1 [degF] [facility] 2 [facility] 10-25-2023 11:28-0400 Diastolic blood pressure 62 mm[Hg] [facility] 10-25-2023 11:28-0400 Heart rate 74 /min [facility] 10-25-2023 11:28-0400 Respiratory rate 18 /min [facility] 2 [facility] 10-25-2023 11:28-0400 Systolic blood pressure 97 mm[Hg] [facility] 2 [facility] 10-25-2023 08:54-0400 Body mass index (BMI) [Ratio] 25.32 kg/m2 [facility] 2 [facility] 10-25-2023 08:54-0400 Body weight 60.78 kg [facility] 2 [facility] 08-30-2023 11:44-0500 Body temperature 98.2 [degF] [facility] 1 [facility] 08-30-2023 11:44-0500 Diastolic blood pressure 68 mm[Hg] [facility] 1 [facility] 08-30-2023 11:44-0500 Heart rate 73 /min [facility] 1 [facility] 08-30-2023 11:44-0500 SaO2% (BldA) [Mass fraction] 98 % [facility] 1 [facility] 08-30-2023 11:44-0500 Systolic blood pressure 99 mm[Hg] [facility] 1 [facility] 08-30-2023 09:00-0500 Body mass index (BMI) [Ratio] 26.38 kg/m2 [facility] 1 [facility] 08-30-2023 09:00-0500 Body weight 63.32 kg [facility] 1 [facility] Encounters Encounter Date Encounter Type Care Provider Facility Start: 06-05-2024 End: [facility]05[facility] [address] [facility] Comment on above: Crohn's disease of s mall and large intestines with complication (CMS-HCC) (Primary Dx) Start: 06-03-2024 End: 06-03-2024 Bamboo flowsheet Sherry Aung DO Work Phone: [facility] Start: 06-03-2024 End: 06-03-2024 Bamboo flowsheet Sherry Aung DO Work Phone: [facility] Start: 06-03-2024 End: 06-03-2024 Office outpatient visit 15 minutes Sherry Aung DO Work Phone: [facility] Comment on above: Third trimester preg delfina; 34 weeks gestation of Start: 06-03-2024 End: 06-03-2024 ambulatory SHERRY AUNG Not Available Start: 05-30-2024 End: 05-30[facility] Start: 05-17-2024 End: 05-17-2024 Orders Only Akila Snider RN [facility] Comment on above: growth restric tion antepartum (Primary Dx); Crohn's disease of both small and large intestine with intestinal obstruction (CMS-HCC); 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 Start: 05-16-2024 End: 05-16-2024 Bamboo flowsheet Sherry Aung DO Work Phone: [facility] Start: 05-16-2024 End: 05-16-2024 Bamboo flowsheet Sherry Aung DO Work Phone: [facility] Start: 05-16-2024 End: 05-16-2024 Office outpatient visit 15 minutes Sherry Aung DO Work Phone: [facility] Comment on above: 32 weeks gestation o f ; Third trimester Start: 05-16-2024 End: 05-16-2024 ambulatory SHERRY AUNG Not Available Start: 05-15-2024 End: 05-15-2024 Orders Only Jenni Owen CMA [facility] at [facility] Comment on above: growth restric tion antepartum [...] Not Available Start: 04-30-2024 End: 04-30-2024 ambulatory [facility] Start: 04-17-2024 End: 04-17-2024 ambulatory [facility] Start: 04-10-2024 End: 04-10-2024 ambulatory [facility] Start: 04-04-2024 End: 04-04-2024 ambulatory [facility] Not Available Start: 04-02-2024 End: 04-02-2024 ambulatory [facility] Start: 03-29-2024 End: 03-29-2024 ambulatory [facility] Start: 03-28-2024 End: 03-28-2024 ambulatory [facility] Start: 03-28-2024 End: 03-28-2024 ambulatory [facility] Start: 03-19-2024 End: 03-19-2024 ambulatory YADIRA Miranda [facility] Start: 03-05-2024 End: 03-05-2024 ambulatory SAYRA ANDREWS Not Available Start: 02-29-2024 End: 02-29-2024 ambulatory SURESH L [facility] Start: 02-20-2024 End: 02-20-2024 ambulatory SHERRY R [facility] Start: 02-14-2024 End: 02-14-2024 ambulatory [facility] Start: 02-06-2024 End: 02-06-2024 ambulatory SHERRY AUNG Not Available Start: 01-09-2024 End: 01-09-2024 ambulatory SHERRY AUNG Not Available Start: 12-20-2023 End: 12-20-2023 ambulatory [facility] Start: 12-11-2023 End: 12-11-2023 [facility] Start: 12-08-2023 End: 12-08-2023 ambulatory SHERRY AUNG Not Available Start: 11-30-2023 End: 11-30-2023 ambulatory [facility] Start: 10-25-2023 End: 10-25-2023 ambulatory [facility] Infusion Chair 2 [facility] Comment on above: Crohn's disease of s mall and large intestines with complication ([facility]-H[facility]) (Primary Dx) Start: 10-24-2023 Telephone encounter [facility] Start: 10-08-2023 End: 10-08-2023 Emergency department patient visit PREMAANKIT ABRAHAM [facility] Start: 08-30-2023 End: 08-30-2023 ambulatory [facility] Infusion [facility] 1 [facility] Comment on above: Crohn's disease of s mall and large intestines with complication ([facility]-HCC) (Primary Dx) Start: 09-17-2019 End: 09-18-2019 Patient encounter procedure PREMA ABRAHAM Facility:[facility] Start: 06-04-2018 End: 06-05-2018 Patient encounter procedure Trang Harrison [facility] Procedures Date Procedure Procedure Detail Performing Clinician Start: 06-03-2024 Urnls dip stick/tabl et rgnt non-auto w/o micrscp Sherry Aung DO Work Phone: Start: 05-16-2024 Urnls dip stick/tabl et rgnt non-auto w/o micrscp Sherry Aung DO Work Phone: Start: 05-15-2024 nonstress test Na colin Roman MD Work Phone: Start: 02-06-2024 Microscopic observat ion [Identifier] in Cervix by Cyto stain Jenni Owen CMA Start: 11-30-2023 Follow-up visit Follow-up SURESH DIAZ Start: 11-11-2021 Microscopic observat ion [Identifier] in Cervix by Cyto stain [facility] 1 Start: 03-04-2021 Adult depression scr eening assessment [facility] 1 Start: 04-14-2020 H/O: colostomy Colostomy status [facility] 1 Start: 12-03-2019 H/O: ileostomy Ileostomy status [facility] 1 Plan of Treatment Date Care Activity Detail Author Start: 02-05-2027 Screening for malign ant neoplasm of cervix Pap Smear [facility] Start: 06-05-2025 Adult BMI Screening Adult [facility] Screen [facility] Start: 05-17-2025 End: 05-17-2025 US MFM with or without consult US MFM with or without consult Imaging Routine growth restriction antepartum Crohn's disease of both small and large intestine with intestinal obstruction (CMS-HCC) 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 Expected: 05/17/2025 (Approximate), Expires: 05/17/2025 [employer] Work Phone: Comment on above: Expected: 05/17/2025 (Approximate), Expires: 05/17/2025 Start: 05-15-2025 Tobacco Screening Tobacco Screening [facility] Start: 04-17-2025 Adult BMI Screening Adult BMI Screen ing [facility] Start: 11-11-2024 Screening for malign ant neoplasm of cervix Pap Smear [employer] Start: 10-24-2024 Adult BMI Screening Adult BMI Screen ing [facility] Start: 10-07-2024 Tobacco Screening Tobacco Screening [facility] Start: 08-30-2024 Adult BMI Screening Adult BMI Screen ing [facility] Start: 08-12-2024 End: 08-12-2024 Patient encounter procedure 08/12/2024 8:30 AM EST Office Visit [facility] [address] [place] [phone] Suresh Diaz MD [address] [facility] [address] [place] [address] [facility] Start: 08-01-2024 End: 08-01-2024 ambulatory 08/01/2024 9:30 AM EST Infusion [facility] [address] [place] [phone] [facility] Start: 06-11-2024 End: 06-11-2024 Patient encounter procedure [facility] Start: 06-10-2024 End: 06-10-2024 Patient encounter procedure 06/10/2024 8:30 AM EST Routine [facility] [address] [place] [address] Sherry Horan DO [address] [place] [address] [facility] Start: 06-05-2024 End: 06-05-2024 ambulatory 06/05/2024 9:00 AM EST Infusion [facility] [address] [address] [place] [address] [facility] Start: 06-03-2024 End: 06-03-2024 Patient encounter procedure [facility] Comment on above: Arrived Start: 05-30-2024 End: 05-30-2024 Patient encounter procedure 05/30/2024 3:00 PM EDT Appointment [facility] [address] [place] [address] [facility] Start: 05-16-2024 End: 05-16-2024 Patient encounter procedure [facility] Comment on above: Arrived Start: 05-10-2024 Tobacco Screening Tobacco Screening [facility] Start: 05-02-2024 End: 05-02-2024 Patient encounter procedure 05/02/2024 9:30 AM EDT Routine [facility] [address] [place] [address] Sayra Andrews PA [address] [place], [place] [id number] Arrived [facility] Comment on above: Arrived Start: 03-31-2024 Influenza vaccination Influenza Vacc ine [facility] Start: 12-20-2023 End: 12-20-2023 ambulatory 12/20/2023 9:00 AM EDT Infusion [facility] [address] [place] [phone] [facility] Start: 11-30-2023 End: 11-30-2023 Patient encounter procedure 11/30/2023 9:30 AM EDT Office Visit [facility] [address] [facility] [address] [place] [phone] Suresh Diaz MD [address] [facility] [address] [place] [address] [facility] Start: 10-25-2023 End: 10-25-2023 ambulatory 10/25/2023 9:00 AM EDT Infusion [facility] [address] [place] [phone] [facility] Start: 03-31-2023 Influenza vaccination Influenza Vacc ine [facility] Start: 03-04-2022 Depression Screening Depression Scre [facility] Start: 2012 DTaP,Tdap and Td Vaccines (1 - Tdap) DTaP,Tdap and Td Vaccines (1 - Tdap) [facility] Start: 2011 Adult BMI Follow Up Plan Adult BMI Follow Up Plan [facility] Start: 2005 Depression Screening Depression Scre mamie [facility] End: 10-24-2024 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[employer] [facility] Lab Routine Crohn's disease of small and large intestines with complication ([facility]-H[facility]) 1 Occurrences starting 10/25/2023 until 10/24/2024 [employer] Work Phone: Comment on above: 1 Occurrences starti ng 10/25/2023 until 10/24/2024 Payers Date Payer Category Payer Medicaid [id number] 2022 Medicaid [id number] 1995 Unknown [id number] 2.16.8 40.1.638897.3.579.2.196 1993 Unknown [id number] 2.16.84 0.1.896050.3.579.2.593 1993 Unknown [id number] 2.16.8 40.1.938624.3.579.2.1286 1993 Unknown [id number] 2.16.8 40.1.282751.3.579.2.1286 1993 Unknown [id number] 2.16.8 40.1.900352.3.579.2.1286 1993 Unknown [id number] 2.16.8 40.1.491671.3.579.2.1286 1993 Unknown [id number] 2.16.8 40.1.086640.3.579.2.1286 1993 Unknown [id number] 2.16.8 40.1.419899.3.579.2.1286 1993 Unknown [id number] 2.16.8 40.1.425023.3.579.2.1286 1993 Unknown [id number] 2.16.8 40.1.932033.3.579.2.1286 1993 Unknown [id number] 2.16.8 40.1.589893.3.579.2.1286 1993 Unknown [id number] 2.16.8 40.1.516642.3.579.2.1285 1993 Unknown [id number] 2.16.8 40.1.464865.3.579.2.1285 1993 Unknown [id number] 2.16.8 40.1.858315.3.579.2.1285 1993 Unknown [id number] 2.16.8 40.1.254723.3.579.2.1285 1993 Unknown [id number] 2.16.8 40.1.599732.3.579.2.1285 1993 Unknown [id number] 2.16.8 40.1.535685.3.579.2.1285 1993 Unknown [id number] 2.16.8 40.1.881589.3.579.2.1285 1993 Unknown [id number] 2.16.8 40.1.008708.3.579.2.1285 1993 Unknown [id number] 2.16.8 40.1.320711.3.579.2.1285 1993 Unknown [id number] 2.16.8 40.1.916201.3.579.2.1285 1993 Unknown [id number] 2.16.8 40.1.847935.3.579.2.1285 1993 Unknown [id number] 2.16.8 40.1.244638.3.579.2.128 1993 Unknown [id number] 2.16.84 0.1.381069.3.579.2.9 1993 Unknown [id number] 2.16.84 0.1.702022.3.579.2.1259 1993 Unknown [id number] 2.16.84 0.1.309475.3.579.2.1259 1993 Unknown [id number] 2.16.84 0.1.151630.3.579.2.1259 1993 Unknown [id number] 2.16.84 0.1.769384.3.579.2.1259 1993 Unknown [id number] 2.16.84 0.1.763762.3.579.2.1259 1993 Unknown [id number] 2.16.84 0.1.493922.3.579.2.1259 1993 Unknown [id number] 2.16.84 0.1.771462.3.579.2.1259 1993 Unknown [id number] 2.16.8 40.1.108301.3.579.2.1286 1993 Unknown [id number] 2.16.8 40.1.778134.3.579.2.1286 1993 Unknown [id number] 2.16.8 40.1.893943.3.579.2.1286 1959 Self-pay [id number] 07-31-1799 Self-pay Social History Date Type Detail Facility Start: 07-05-2022 End: 12-08-2023 Tobacco smoking status AZIS Never smoked tobacco [facility] Start: 07-05-2022 End: 12-08-2023 Tobacco use and exposure Smokeless tobacco non-user [facility] Start: 05-10-2023 End: 10-08-2023 Alcohol intake Current drinker of alcohol (finding) [facility] Start: 08-10-2020 End: 05-10-2023 Alcohol intake [facility] Start: 08-06-2020 End: 08-10-2020 Social connection and isolation panel [facility] Do you belong to any clubs or organizations such as pentecostalism groups, unions, fraternal or athletic groups, or school groups? No [facility] Are you now , , , , never or living with a partner? [facility] How often to you hav e a drink containing alcohol? 2-4 times a month [facility] Average Number of Drinks Not on file [facility] Do you feel stress - tense, restless, nervous, or anxious, or unable to sleep at night because your mind is troubled all the time - these days [OSQ] Only a little [facility] Start: 12-22-2021 Alcohol Comment socially [facility] Start: 1995 Sex Assigned At Not on file [facility] Start: 05-02-2024 End: 05-15-2024 Alcoholic beverage intake Ex-drinker (finding) [facility] Start: 10-17-2023 [facility] Start: 10-16-2019 Sex Female (finding) [facility] Goals Date Patient Goal Desired Activity /State Personal health goal Comment on above: Formatting of this n ote might be different from the original. Evaluation of progress towards goal: Patient plans to return home with [facility] Clinical Notes 08-30-2023 to 06-05-2024 Renuka Abdalla RN - 06/05/2024 9:00 AM Amador Abdalla RN - 06/05/2024 9:00 AM Eleazar Garza LPN - 06/03/2024 8:30 AM Eleazar Garza LPN - 05/16/2024 9:00 AM EDT Note Date & Type Note Facility 06-05-2024 History of Presen t illness Narrative IV Infusion START time: 914 Patient here for Entyvio infusion. Patient denies any recent infections, open wounds, recent/future surgery, or insurance changes. IV started with 22g needle to Right AC by Renuka Middleton RN x1 attempt. Patient tolerated well. Remicade Lot# [id number] Exp- 08/27/2026 Time out performed prior to medication administration. Name, , medication(s) verified IV Infusion END time: 1125 patient infusion complete. IV discontinued, catheter intact, vitals WNL. Patient tolerated infusion well PIV flushed with 10 ml of 0.9% NS after medication infused documented in this encounter [facility] 06-03-2024 History of Presen t illness Narrative Reason [...] nursing note reviewed. Exam conducted with a tong carrier present. Vitals: There is no height or weight on file to calculate BMI. BP: 114/68 Patient's last menstrual period was 10/03/2023. ASSESSMENT & PLAN ICD-10-CM 1. Third trimester Z34.93 POCT urinalysis dipstick manually resulted 2. 34 weeks gestation of Z3A.34 Patient presents today for a routine obstetrics appointment. Patient is currently 34w6d with a Estimated Date of Delivery: 07/09/24. Patient to return to clinic in 1 weeks for routine OB appointment with GBS and LARS's consent to be signed. Documented by Paddy Garza LPN on behalf of: Sherry Horan DO documented in this encounter [facility] 05-16-2024 History of Presen t illness Narrative [...] nursing note reviewed. Exam conducted with a tong carrier present. Vitals: There is no height or [...] Estimated Date of Delivery: 07/09/24. Discussed recent [facility] appointment with patient and delivery due to SGA & Crohn's Disease. Nursing will obtain office note from MFM appointment yesterday. Patient given order to have NST/BPP done locally at [facility]. Documented by Paddy Garza LPN on behalf of: Sherry Horan DO documented in this encounter [facility] 05-15-2024 History of Presen t illness Narrative [...] all scheduled appointments documented in this encounter [facility] 05-02-2024 History of Presen t illness [...] of: STEPHANIE Thorne documented in this encounter [facility] 10-25-2023 History of Presen t illness Narrative 0900 Patient here for Avsola infusion. Patient denies any recent infections, open wounds, recent/future surgery, or insurance changes . IV started with 22g needle to right AC by paddy gill x 1 attempt . Patient tolerated well. Avsola x 2 vials, lot# [id number], exp date Avsola x 1 vial, lot# [id number], exp date 02/27/2027 Time out performed with AJIRO Oh. 300 mg of avsola to be [...] [facility] Miscellaneous Notes Formattin g of this note might be different from the original. Patient currently receiving Avsola 5mg/kg every 8 weeks. 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 Prior auth request forms completed for Remicade 5mg/kg to be given every 56 days, faxed to [phone] Remicade approved for 5mg/kg (400mg) for 7 visits from 10/25/2023-10/23/2024. Auth # [id number] Referral placed. Therapy plan updated. Flowsheet updated. documented in this encounter [facility] 10-24-2023 Telephone encount er Note Patient currently receiving Avsola 5mg/kg every 8 weeks. 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 Prior auth request forms completed for Remicade 5mg/kg to be given every 56 days, faxed to [phone] [facility] 10-24-2023 Telephone encount er Note Remicade approved for 5mg/kg (400mg) for 7 visits from 10/25/2023-10/23/2024. Auth # [id number] Referral placed. Therapy plan updated. Flowsheet updated. [facility] 08-30-2023 History of Presen t illness Narrative 0906 Patient here for Avsola infusion. Patient denies any recent infections, open wounds, recent/future surgery, or insurance changes . Site cleansed with alcohol. IV started with 22g needle by Juan M GILL in right antecube. Patient tolerated well. 1142 patient infusion complete. IV discontinued at 1142. Patient tolerated infusion well. documented in this encounter [facility] Evaluation note Diagnosis Crohn's disease of small and large intestines with complication (CMS-HCC)- Primary [facility] Diagnosis Crohn's disease of small and large intestines with complication (CMS-HCC)- Primary [facility] Diagnosis 30 weeks gestation of - Primary Third trimester state, incidental [facility] Diagnosis Crohn's disease of both small and large intestine with intestinal obstruction (CMS-HCC)- Primary growth restriction antepartum growth restriction antepartum- Primary [facility] Diagnosis Crohn's disease of both small and large intestine with intestinal obstruction (CMS-HCC)- Primary growth restriction antepartum [facility] Diagnosis 32 weeks gestation of Third trimester state, incidental documented in this encounter [facility]* Diagnosis growth restriction antepartum- Primary Crohn's disease of both small and large intestine with intestinal obstruction (CMS-HCC) 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 [facility] Diagnosis Third trimester state, incidental 34 weeks gestation of documented in this encounter [facility]* Diagnosis Crohn's disease of small and large intestines with complication (CMS-HCC)- Primary [facility] filedocumented in this [facility] filedocumented in this [facility] filedocumented in this encounter [facility] filedocumented in this [facility] filed[facility]ed in this encounter [facility] Summary Purpose Family History No [...] section and content) DATE CREATED AUTHOR 07/08/2018 [facility] DATE CREATED AUTHOR AUTHOR'S ORGANIZ ATION [facility] DATE CREATED AUTHOR AUTHOR'S ORGANIZ ATION 12/18/2019 [facility] DATE CREATED AUTHOR AUTHOR'S ORGANIZ ATION 04/03/2024 [facility] DATE CREATED AUTHOR AUTHOR'S ORGANIZ ATION 06/01/2024 [facility] DATE CREATED AUTHOR AUTHOR'S ORGANIZ ATION 06/03/2024 [facility] EPIC DATE CREATED AUTHOR AUTHOR'S ORGANIZ ATION 06/06/2024 [facility] Reason for Visit (unrecogniz ed section and content) Reason Comments Outpatient Infusion Avsola Specialty Diagnoses / Procedures Referred By Theodore kohli Referred To Contact Gastroenterology Diagnoses Crohn's disease of both small and large intestine with unspecified complications Renflexis 400mg q8 weeks, 7 visits, 02.02.23 - 24, HK/CF, Crohn's Procedures INJECTION, INFLIXIMAB-AXXQ, BIOSIMILAR, (AVSOLA), 10 MG INFUSION Prema Abraham MD [address] [place] [address] [address] Referral ID Status Reason Start Date Expiration Date V isits Requested Visits Authorized [id number] Authorized 02/02/2023 02/02/2024 7 7 Reason Comments Outpatient Infusion Avsola Reason Comments Routine Visit Reason Comments add on NST for [facility] Specialty Diagnoses / Procedures Referred By Theodore kohli Referred To Contact Maternal and Medicine Diagnoses growth restriction antepartum Procedures nonstress test - Maternal Medicine Devyn Roman MD [address], [address] [place] [address] Phone: tel: fax: [facility]- Medicine at [facility] [address] [place] [address] Phone: tel: fax: Referral ID Status Reason Start Date Expiration Date V isits Requested Visits Authorized [id number] Pending Review 05/15/2024 05/15/2025 1 1 Reason Comments Outpatient Infusion Remicade Specialty Diagnoses / Procedures Referred By Theodore kohli Referred To Contact Gastroenterology Diagnoses Crohn's disease of both small and large intestine with unspecified complications Remicade 5mg/kg every 56 days ( 400 mg) Auth'd from 10/25/2023-10/23/2024 for 7 Visits, HK/CF, Crohn's Procedures [place] INFLIXIMAB [place] [address] [place] [id number] Phone: tel: fax: [facility] [address] [address] Phone: tel: fax: Referral ID Status Reason Start Date Expiration Date V isits Requested Visits Authorized [id number] Authorized 12/20/2023 12/19/2024 7 7 Care Teams (unrecognized sec tion and content) Card Services Specialist Relationship Specialty Start Date End Date Prema Abraham MD [address] [place], [place] [id number] PCP - General Family Medicine 12/17/19 Card Services Specialist Relationship Specialty Start Date End Date Prema Abraham MD [address] [place] [address] [phone] PCP - General Family Medicine 10/08/23 Card Services Specialist Relationship Specialty Start Date End Date Prema Abraham MD [address] [place] [address] [phone] PCP - General Family Medicine 10/08/23 Card Services Specialist Relationship Specialty Start Date End Date Prema Abraham MD [address] [place] [address] [phone] PCP - General Family Medicine 02/29/24 Card Services Specialist Relationship Specialty Start Date End Date Prema Abraham MD [address] [place] [id number] PCP - General Family Medicine 02/29/24 Card Services Specialist Relationship Specialty Start Date End Date Prema Abraham MD [address] [place] [address] [id number] PCP - General Family Medicine 02/29/24 Card Services Specialist Relationship Specialty Start Date End Date Prema Abraham MD [address] [place] [address] [phone] PCP - General Family Medicine 02/29/24 FOR [...] BE BASED ON THE PRIMARY CLINICAL RECORDS. [employer] [facility]. provides no warranty or guarantee of the accuracy or completeness of information in this document.
[2024-06-07 09:05] VITALS: BP 131/88; PULSE 95
== END 2024-06-07 10:01 | disposition home or self-care (01) ==
LOC: FBCO 07:07 → FBC 08:50
PROVIDERS: PCP Family Medicine; Visit Provider Obstetrics & Gynecology
DX: O26.893 Other specified pregnancy related conditions, third trimester (principal); O99.613 Diseases of the digestive system complicating pregnancy, third trimester; Z3A.35 35 weeks gestation of pregnancy
CPT/HCPCS: 59025

== ENCOUNTER 2024-06-10 20:29 | Outpatient (REF) | payer MEDICAID, SELFPAY ==
--- OUTSIDE RECORDS SUMMARY | 2024-06-10 20:33 | XMS_ITS | CCD ---
Author Organization [facility] Care Team Providers Care Workcell Operator Name Role Phone Trang Harrison Unavailable Unavailable Prema Abraham Unavailable Unavaila PREMA Mahan Admitting Unavailable PREMA ABRAHAM Attending Unavailable PREMA ABRAHAM Primary Care Unavailable ALLISON TOWNSEND V Consulting Unavailable PREMA ABRAHAM Consulting Unavailable Prema Abraham MD Primary Care Provider [phone] Prema Abraham MD Primary Care Provider [phone] PREMA ABRAHAM Primary Care Unavailable AUNG, SHERRY [...] Care Unavailable YADIRA CHAU Attending Unavaila ble ABEL, DEVYN Referring Unavailable PREMA ABRAHAM E Primary Care Unavailable YADIRA CHAU Referring Unavaila ble PREMA ABRAHAM E Primary Care Unavailable AUNG, SHERRY R Referring Unavailable PREMA ABRAHAM E Primary Care Unavailable DEVYN ROMAN Attending Unavailable ANGEL KAUFMAN Referring Unavailable VIGNESH ABRAHAMIA E Primary Care Unavailable AUNG, SEHRRY R Referring Unavailable VIGNESH ABRAHAMIA E Primary Care Unavailable AUNG, SHERRY R [...] 10/08/2023 Active cholecalciferol 0.025 mg chewable tablet (18 sources) Vitamin D Cholecalciferol 25 MCG (1000 UT) chewable tablet Chew Daily Active folic acid 1 mg oral tablet (3 sources) Start: 04-01-2024 folic acid (FOLVITE) 1 mg tablet Take 1 tablet (1,000 mcg total) by mouth. 04/01/2024 Active inFLIXimab-axxq 100 mg injection (20 sources) Tumor Necrosis Factor Leo Start: 12-06-2020 [...] 10 tablet 0 10/08/2023 Active Vit-Fe Fumarate-FA ([employer] TechnologiesENSE VITAMINS PO) (12 sources) Start: 11-16-2023 take 1 dose by mouth once daily Vit-Fe Fumarate-FA (Ocision VITAMINS PO) 1 each Daily 11/16/2023 Active [...] needed in the evening. 0 08/17/2021 Active valACYclovir 1000 mg oral tablet (2 sources) Herpesvirus Nucleoside Analog DNA Polymerase Inhibitor, Herpes Simplex Virus Nucleoside Analog DNA Polymerase Inhibitor, Herpes Zoster Virus Nucleoside Analog DNA Polymerase Inhibitor Start: 06-10-2024 End: 06-20-2024 valACYclovir (Valtrex) 1 g tablet Indications: Herpes Take 0.5 tablets (500 mg) by mouth in the morning and 0.5 tablets (500 mg) before bedtime. Do all this for 10 days. AFTER 10 days then daily until delivery.. 50 tablet 1 06/10/2024 06/20/2024 Active vitamin b12 2.5 mg sublingual tablet [...] 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 10-18-2024 Episodic Other complications of (6 sources) growth [...] 03-28-2024 Episodic Other and delivery including normal (8 sources) Third trimester ; Translations: [Encounter for [...] [34 weeks gestation of ] 06-03-2024 Episodic Residual codes; unclassified (2 sources) Gestation period, 35 weeks; Translations: [35 weeks gestation of ] 06-10-2024 Episodic Spondylosis; intervertebral disc disorders; other back [...] Unclassified (2 sources) Outpatient Infusion Onset: 10-25-2023 Viral infection (2 sources) Herpes simplex; Translations: [Herpesviral infection, unspecified] 06-10-2024 Episodic Past or Other Problems Problem Classification Problem [...] Range Facility Urinalysis macro (dipstick) panel (U)on 06-10-2024 Bilirubin, UA Negative Negative - 4(70) +++ mg/dL [facility] Blood, UA Positive Negative - 50 Kal/mcL [facility] Clarity, UA Clear [facility] Color, UA Yellow [facility] Glucose, UA Negative Negative - 1999(110) ++++ mg/dL [facility] Interpretation and review of laboratory results Abnormal [facility] Ketones, UA Negative Negative - 160(16) ++++ mg/dL [facility] Leukocytes, UA Negative Negative - 500+++ Sandra/mcL [facility] Nitrite, UA Negative Negative - Positive [facility] pH, UA 6 5 - 9 [facility] Protein, UA Negative Negative - 2000(20) ++++ mg/dL [facility] Spec Grav, UA 1.02 1 - 1.03 [facility] Urobilinogen, UA 1.0 0.2 - 12 mg/dL [facility] Urinalysis macro (dipstick) panel (U)on 06-03-2024 Bilirubin, UA Negative Negative - 4(70) +++ mg/dL [facility] Blood, UA Negative Negative - 50 Kal/mcL [facility] Clarity, UA Clear [facility] Color, UA Yellow [facility] Glucose, UA Negative Negative - 1999(110) ++++ mg/dL [facility] Interpretation and review of laboratory results Normal [facility] Ketones, UA Negative Negative - 160(16) ++++ mg/dL [facility] Leukocytes, UA Negative Negative - 500+++ Sandra/mcL [facility] Nitrite, UA Negative Negative - Positive [facility] pH, UA 5.5 5 - 9 [facility] Protein, UA Negative Negative - 1999(20) ++++ mg/dL [facility] Spec Grav, UA 1.03 1 - 1.03 [facility] Urobilinogen, UA 0.2 0.2 - 12 mg/dL [facility] Urinalysis macro (dipstick) panel (U)on 05-16-2024 Bilirubin, UA Negative Negative - 4(70) +++ mg/dL [facility] Blood, UA Positive Negative - 50 Kal/mcL [facility] Comment on above: trace-intact Clarity, UA Clear [facility] Color, UA Yellow [facility] Glucose, UA Negative Negative - 1999(110) ++++ mg/dL [facility] Interpretation and review of laboratory results Abnormal [facility] Ketones, UA Negative Negative - 160(16) ++++ mg/dL [facility] Leukocytes, UA Negative Negative - 500+++ Sandra/mcL [facility] Nitrite, UA Negative Negative - Positive [facility] pH, UA 6 5 - 9 [facility] Protein, UA Negative Negative - 1999(20) ++++ mg/dL [facility] Spec Grav, UA 1.025 1 - 1.03 [facility] Urobilinogen, UA 0.2 0.2 - 12 mg/dL [facility] No Panel Informationon 05-15 Patient Name: Kishor Maldonado Patient : 1995 NST Objective Findings: Variability: Moderate Decelerations: None Accelerations: Yes Acoustic Stimulator: No Baseline: 130 BPM Uterine Irritability: Yes Contractions: Not present Comments: Uterine irritability noted, intercourse this morning. [facility] instructions/handout and labor precautions reviewed. NST Interpretation: Nonstress Test Interpretation: Reactive (Devyn Roman MD) NST performed by: Aislinn Richardson RN 05/15/2024 4:30 PM [facility] M. tuberculosis stim IFN-g p venkat (Bld)on 03-29-2024 Mitogen minus Nil Result 1.22 IU/mL Normal [facility] Comment on above: Performed By: #### C AGNES, 1989-11, HA1C, CBCA, 5196-1, 55474-9, 41077-0, 2132-9, 30721-0, 8014-3, 68883-8 #### [facility] ([id number]) [address] [facility], [address] [place] [address] Nil Result 0.02 IU/mL Normal [facility] Comment on above: Result Comment: NOTE Test Performed by: [facility] [address] [place] [address] Assistant Professor Of Physics: Donnie Sanon Ph.D.; CLIA# [id number] Performed By: #### C AGNES, 1989-11, HA1C, CBCA, 5196-1, 06472-0, 80071-5, 2131-9, 16388-0, 8014-3, 39773-8 #### [facility] ([id number]) [address] [place] [address], [address] [place] [address] QuantiFERON-Tb Gold Plus Result Negative Normal Negative [facility] Comment on above: Result Comment: NOTE [...] #### C AGNES, 1989-11, HA1C, CBCA, 5196-1, 48214-7, 80035-6, 2-9, 48885-5, 8014-3, 62852-2 #### [facility] ([id number]) [address] [facility], [address] [place] [address] TB1 Ag minus Nil Result NEG 0.01 Normal [facility] Comment on above: Performed By: #### C AGNES, 1989-11, HA1C, CBCA, 5196-1, 90104-3, 91343-6, 2-9, 19786-3, 8014-3, 93119-2 #### [facility] ([id number]) [address], [address] [place] [address] TB2 Ag minus Nil Result NEG 0.01 Normal [facility] Comment on above: Performed By: #### C AGNES, 1989-11, HA1C, CBCA, 5196-1, 32444-6, 94439-0, 2131-9, 18652-8, 8014-3, 65694-6 #### [facility] ([id number]) [address], [address] [place] [address] CBC AND AUTO DIFFon 12-11-19 24 ABSOLUTE BASOPHIL 0.0 X10E9/L Normal 0.0-0.2 [facility] Comment on above: Performed By: #### Clyde ALARCON, 1989-11, HA1C, CBCA, 5196-1, 06530-5, 07074-1, 2131-9, 32746-4, 8014-3, 47062-6 #### [facility] ([id number]) [address], [address] [place] [address] ABSOLUTE NEUTROPHIL 5.5 X10E9/L Normal 1.5-6.6 [facility] Comment on above: Performed By: #### C AGNES, 1989-11, HA1C, CBCA, 5196-1, 13216-7, 00319-4, 2131-9, 98236-5, 8014-3, 20826-6 #### [facility] ([id number]) [address], [address] [place] [address] Basophils/100 WBC (Bld) 0.3 % Normal [facility] Comment on above: Performed By: #### C AGNES, 1989-11, HA1C, CBCA, 5196-1, 34859-3, 29314-0, 2132-9, 57594-4, 8014-3, 50462-4 #### [facility] ([id number]) [address], [address] [place] [address] Eosinophils (Bld) [#/Vol] 0.2 10*3/uL Normal 0.0-0.4 [facility] Comment on above: Performed By: #### C AGNES, 1989-11, HA1C, CBCA, 5196-1, 09626-9, 76403-1, 2131-9, 68648-3, 8014-3, 20457-0 #### [facility] ([id number]) [address], [address] [place] [address] Eosinophils/100 WBC (Bld) 2.6 % Normal [facility] Comment on above: Performed By: #### C AGNES, 1989-11, HA1C, CBCA, 5196-1, 27245-2, 43755-3, 2131-9, 33779-8, 8014-3, 07840-4 #### [facility] ([id number]) [address], [address] [place] [address] Erythrocyte distribution width (RBC) [Ratio] 13.3 % Normal 11.5-15.0 [facility] Comment on above: Performed By: #### C AGNES, 1989-11, HA1C, CBCA, 5196-1, 84283-4, 75655-5, 2131-9, 77947-5, 8014-3, 05906-8 #### [facility] ([id number]) [address], [address] [place] [address] Hematocrit (Bld) [Volume fraction] 40.5 % Normal 35-47 [facility] Comment on above: Performed By: #### C AGNES, 1989-11, HA1C, CBCA, 5196-1, 77592-3, 38112-0, 2132-9, 30984-9, 8014-3, 75911-6 #### [facility] ([id number]) [address] [facility], [address] [place] [address] Hemoglobin (Bld) [Mass/Vol] 14.2 g/dL Normal 11.7-15.5 [facility] Comment on above: Performed By: #### C AGNES, 1989-11, HA1C, CBCA, 5196-1, 07033-7, 09230-0, 2132-9, 21542-8, 8014-3, 99391-8 #### [facility] ([id number]) [address] [facility], [address] [place] [address] Lymphocytes (Bld) [#/Vol] 1.3 10*3/uL Normal 1.0-3.5 [facility] Comment on above: Performed By: #### C AGNES, 1989-11, HA1C, CBCA, 5196-1, 79052-9, 93748-0, 2-9, 74503-7, 8014-3, 40844-7 #### [facility] ([id number]) [address] [facility], [address] [place] [address] Lymphocytes/100 WBC (Bld) 18.2 % Normal [facility] Comment on above: Performed By: #### C AGNES, 1989-11, HA1C, CBCA, 5196-1, 72757-9, 88733-9, 2-9, 15294-8, 8014-3, 53296-7 #### [facility] ([id number]) [address] [facility], [address] [place] [address] MCH (RBC) [Entitic mass] 30.7 pg Normal 27-34 [facility] Comment on above: Performed By: #### C AGNES, 1989-11, HA1C, CBCA, 5196-1, 10675-4, 11665-2, 2132-9, 05863-0, 8014-3, 99701-3 #### [facility] ([id number]) [address], [address] [place] [address] MCHC (RBC) [Mass/Vol] 35.2 g/dL Normal 32-36 [facility] Comment on above: Performed By: #### C AGNES, 1989-11, HA1C, CBCA, 5196-1, 90473-1, 83267-2, 2131-9, 11957-1, 8014-3, 59150-6 #### [facility] ([id number]) [address], [address] [place] [address] MCV (RBC) [Entitic vol] 87 fL Normal 80-100 [facility] Comment on above: Performed By: #### C AGNES, 1989-11, HA1C, CBCA, 5196-1, 52307-3, 91367-3, 2131-9, 52279-8, 8014-3, 40046-5 #### [facility] ([id number]) [address], [address] [place] [address] Monocytes (Bld) [#/Vol] 0.4 10*3/uL Normal 0-0.9 [facility] Comment on above: Performed By: #### C AGNES, 1989-11, HA1C, CBCA, 5196-1, 81982-5, 68183-6, 2131-9, 72248-7, 8014-3, 04809-2 #### [facility] ([id number]) [address], [address] [place] [address] Monocytes/100 WBC (Bld) 5.1 % Normal [facility] Comment on above: Performed By: #### C AGNES, 1989-11, HA1C, CBCA, 5196-1, 46958-0, 77159-1, 2131-9, 13492-1, 8014-3, 91537-7 #### [facility] ([id number]) [address], [address] [place] [address] Neutrophils/100 WBC (Bld) 73.8 % Normal [facility] Comment on above: Performed By: #### Clyde ALARCON, 1989-11, HA1C, CBCA, 5196-1, 86128-6, 73695-0, 2131-9, 21413-1, 8014-3, 91943-0 #### [facility] ([id number]) [address], [address] [place] [address] Platelet mean volume (Bld) [Entitic vol] 9.1 fL Normal 7-12 [facility] Comment on above: Performed By: #### Clyde ALARCON, 1989-11, HA1C, CBCA, 5196-1, 13886-9, 72787-7, 2131-9, 98819-9, 8014-3, 16106-1 #### [facility] ([id number]) [address] [address] [place] [address] Platelets (Bld) [#/Vol] 254 10*3/uL Normal 150-450 [facility] Comment on above: Performed By: #### Clyde ALARCON, 1989-11, HA1C, CBCA, 5196-1, 22162-5, 59291-0, 2131-9, 38700-2, 8014-3, 87812-1 #### [facility] ([id number]) [address], [address] [place] [address] RBC COUNT 4.63 X10E12/L Normal 3.80-5.20 [facility] Comment on above: Performed By: #### Clyde ALARCON, 1989-11, HA1C, CBCA, 5196-1, 86077-8, 98417-2, 2131-9, 99821-9, 8014-3, 31807-6 #### [facility] ([id number]) [address], [address] [place] [address] WBC (Bld) [#/Vol] 7.4 10*3/uL Normal 4.0-11.0 [facility] Comment on above: Performed By: #### C MP, 1989-11, HA1C, CBCA, 5196-1, 62713-5, 89652-2, 2131-9, 43559-4, 8014-3, 58169-2 #### [facility] ([id number]) [address], [address] [place] [address] COMPREHENSIVE METABOLIC PANE Jesse 12-11-2023 Albumin [Mass/Vol] 4.3 g/dL Normal 3.2-5.3 [facility] Comment on above: Performed By: #### C AGNES, 1989-11, HA1C, CBCA, 5196-1, 54323-9, 63506-9, 2131-9, 00083-1, 8014-3, 77726-8 #### [facility] ([id number]) [address], [address] [place] [address] ALP [Catalytic activity/Vol] 48 U/L Normal 39-130 [facility] Comment on above: Performed By: #### C AGNES, 1989-11, HA1C, CBCA, 5196-1, 64548-1, 05829-2, 2131-9, 44885-9, 8014-3, 51778-3 #### [facility] ([id number]) [address], [address] [place] [address] ALT [Catalytic activity/Vol] 13 U/L Normal 0-31 [facility] Comment on above: Performed By: #### C AGNES, 1989-11, HA1C, CBCA, 5196-1, 43451-7, 60209-4, 2131-9, 93800-7, 8014-3, 34610-2 #### [facility] ([id number]) [address], [address] [place] [address] Anion gap [Moles/Vol] 10 mmol/L Normal 5-15 [facility] Comment on above: Performed By: #### C AGNES, 1989-11, HA1C, CBCA, 5196-1, 85837-5, 70800-9, 213-9, 74515-8, 8014-3, 96613-3 #### [facility] ([id number]) [address] [facility], [address] [place] [address] AST [Catalytic activity/Vol] 17 U/L Normal 0-41 [facility] Comment on above: Performed By: #### C AGNES, 1989-11, HA1C, CBCA, 5196-1, 82194-7, 41505-2, 2131-9, 90320-1, 8014-3, 76736-0 #### [facility] ([id number]) [address] [facility], [address] [place] [address] Bilirubin [Mass/Vol] 0.7 mg/dL Normal 0.3-1.2 [facility] Comment on above: Performed By: #### C AGNES, 1989-11, HA1C, CBCA, 5196-1, 28471-1, 46589-5, 2131-9, 83012-5, 8014-3, 41767-2 #### [facility] ([id number]) [address] [facility], [address] [place] [address] Calcium [Mass/Vol] 9.5 mg/dL Normal 8.5-10.5 [facility] Comment on above: Performed By: #### C AGNES, 1989-11, HA1C, CBCA, 5196-1, 76145-6, 47014-1, 2131-9, 89413-5, 8014-3, 19603-9 #### [facility] ([id number]) [address], [address] [place] [address] Chloride [Moles/Vol] 104 mmol/L Normal 98-109 [facility] Comment on above: Performed By: #### C AGNES, 1989-11, HA1C, CBCA, 5196-1, 26978-1, 89705-6, 2131-9, 93508-4, 8014-3, 75476-2 #### [facility] ([id number]) [address], [address] [place] [address] CO2 [Moles/Vol] 23 mmol/L Normal 22-32 [facility] Comment on above: Performed By: #### C AGNES, 1989-11, HA1C, CBCA, 5196-1, 02438-1, 51333-8, 2131-9, 23521-5, 8014-3, 56759-9 #### [facility] ([id number]) [address], [address] [place] [address] Creatinine [Mass/Vol] 0.49 mg/dL Normal 0.40-1.00 [facility] Comment on above: Result Comment: METH OD TRACEABLE TO IDMS STANDARD Performed By: #### C AGNES, 1989-11, HA1C, CBCA, 5196-1, 21223-1, 18742-3, 2131-9, 26239-7, 8014-3, 55918-5 #### [facility] ([id number]) [address], [address] [place] [address] eGFR (CKD-EPI) NON-RACE DEPENDENT >90 Normal >59 [facility] Comment on above: Result Comment: Reported eGFR is based on the CKD-EPI 2020 equation that does not use a race coefficient. Performed By: #### C AGNES, 1989-11, HA1C, CBCA, 5196-1, 43939-7, 93489-2, 2131-9, 44608-2, 8014-3, 04187-4 #### [facility] ([id number]) [address], [address] [place] [address] Glucose [Mass/Vol] 92 mg/dL Normal 65-99 [facility] Comment on above: Performed By: #### C AGNES, 1989-11, HA1C, CBCA, 5196-1, 75245-9, 46495-8, 2131-9, 52929-4, 8014-3, 02040-3 #### [facility] ([id number]) [address], [address] [place] [address] Potassium [Moles/Vol] 4.1 mmol/L Normal 3.5-5.0 [facility] Comment on above: Performed By: #### C AGNES, 1989-11, HA1C, CBCA, 5196-1, 23156-2, 34440-3, 2131-9, 08498-5, 8014-3, 40983-3 #### [facility] ([id number]) [address], [address] [place] [address] Protein [Mass/Vol] 7.5 g/dL Normal 6.0-8.0 [facility] Comment on above: Performed By: #### C AGNES, 1989-11, HA1C, CBCA, 5196-1, 42246-0, 01908-1, 2131-9, 80925-7, 8014-3, 14374-6 #### [facility] ([id number]) [address], [address] [place] [address] Sodium [Moles/Vol] 137 mmol/L Normal 134-146 [facility] Comment on above: Performed By: #### C AGNES, 1989-11, HA1C, CBCA, 5196-1, 61531-0, 24424-3, 2131-9, 96735-3, 8014-3, 08285-3 #### [facility] ([id number]) [address], [address] [place] [address] Urea nitrogen [Mass/Vol] 6 mg/dL Normal 5-23 [facility] Comment on above: Performed By: #### C AGNES, 1989-11, HA1C, CBCA, 5196-1, 42710-9, 27552-5, 2131-9, 75849-2, 8014-3, 46929-6 #### [facility] ([id number]) [address], [address] [place] [address] CRP [Mass/Vol]on 12-11-2023 C REACTIVE PROTEIN 0.5 mg/dL Normal 0.000-0.744 [facility] Comment on above: Performed By: #### C AGNES, 1989-11, HA1C, CBCA, 5196-1, 15869-3, 59492-1, 2132-9, 61087-3, 8014-3, 13079-3 #### [facility] ([id number]) [address] [facility], [address] [place] [address] HBV surface Ag IA Qlon 12-10 HEPATITIS B SURF AG Negative Normal NEG [facility] Comment on above: Performed By: #### C AGNES, 1989-11, HA1C, CBCA, 5196-1, 37077-3, 58327-5, 2131-9, 13755-4, 8014-3, 14790-1 #### [facility] ([id number]) [address] [place] [address], [address] [place] [address] HCV Ab IA Qlon 12-11-2023 ANTI HCV W/PCR REFLX Non-Reactive Normal NRCT [facility] Comment on above: Result Comment: If recent infection suspected, recommend repeat testing (>2 months). Xrbyja-hg-ojijul ratio is <0.80. Performed By: #### C AGNES, 1989-11, HA1C, CBCA, 5196-1, 49303-3, 88693-8, 2131-9, 70522-1, 8014-3, 56996-9 #### [facility] ([id number]) [address] [place] [address], [address] [place] [address] HGB A1C (GLYCO-HGB)on 2023 Glucose [Mass/Vol] 103 mg/dL Normal [facility] Comment on above: Performed By: #### C AGNES, 1989-11, HA1C, CBCA, 5196-1, 88127-0, 28626-8, 2132-9, 33628-7, 8014-3, 09404-2 #### [facility] ([id number]) [address] [facility], [address] [place] [address] HbA1c (Bld) [Mass fraction] 5.2 % Normal 4.4-5.6 [facility] Comment on above: Result Comment: NOTE ADA Guidelines Result HgbA1c Normal : less than 5.7 % Prediabetes : 5.7 % to 6.4 % Diabetes : > 6.4 % Use with caution in patients with abnormal hemoglobin variants as the half-life of red blood cells and in vivo glycation rates are affected. Performed By: #### Clyde ALARCON, 1989-11, HA1C, CBCA, 6-1, 76436-8, 20443-2, 9, 61284-6, 8014-3, 41280-8 #### [facility] ([id number]) [address] [facility], [address] [place] [address] HIV 1+2 Ab+HIV1 p24 Ag IA Ql on 12-11-2023 HIV 1 and 2 Ab/Ag Screen Non-Reactive Normal NRCT [facility] Comment on above: Result Comment: This [...] By: #### Clyde ALARCON, 1989-11, HA1C, CBCA, 6-1, 33346-3, 96492-0, 9, 26039-0, 8014-3, 81025-2 #### [facility] ([id number]) [address] [facility], [address] [place] [address] Rubella virus IgG Qn (S)on 0 12-11-2023 RUBELLA IgG 30 IU/mL Normal [facility] Comment on above: Result Comment: Interpretation-------- <8 NEGATIVE-considered Not Immune 8-9 EQUIVOCAL-consider retesting with new specimen >9 POSITIVE-considered Immune Performed By: #### C AGNES, 1989-11, HA1C, CBCA, 5196-1, 15819-7, 46921-8, 2131-9, 75003-6, 8014-3, 55708-4 #### [facility] ([id number]) [address] [facility], [address] [address] T. pallidum IgG+IgM IA Ql (S )on 12-11-2023 Syphilis Total <0.2 Normal 0.0-0.8 [facility] Comment on above: Result Comment: NON REACTIVE No serologic evidence of infection to Treponema pallidum (syphilis). Repeat testing may be considered in patients with suspected acute or primary syphilis in 2 to 4 weeks. Performed By: #### C AGNES, 1989-11, HA1C, CBCA, 5196-1, 26718-4, 88780-5, 2131-9, 60323-1, 8014-3, 50723-3 #### [facility] ([id number]) [address] [facility] [address] [place] [address] VITAMIN B12on 12-11-2023 Cobalamin (Vitamin B12) [Mass/Vol] 142 pg/mL Low 180-914 [facility] Comment on above: Performed By: #### C ANGES, 1989-11, HA1C, CBCA, 5196-1, 32506-9, 36032-9, 2131-9, 35938-9, 8014-3, 50547-0 #### [facility] ([id number]) [address] [facility], [address] [place] [address] Vitamin D+Metabolites [Mass/ Vol]on 12-11-2023 VITAMIN D 25 HYD TOT 21.8 ng/mL Low 30-100 [facility] Comment on above: Result Comment: Vitamin D status 25 [place] Vitamin D Deficiency <20 ng/mL Insufficiency 20-29 ng/mL Sufficiency 30-100 ng/mL Toxicity >100 ng/mL NOTE: A pediatric reference range has not been established by the telecommunicator supervisor of this kit. The [place] [employer] recommends a Vitamin D level of = or >20ng/mL in infants and children. Performed By: #### C MP, 1989-, HA1C, CBCA, 5196-1, 48655-3, 10696-4, 2132-9, 93323-8, 8014-3, 96855-7 #### [facility] ([id number]) [address], [address] [place] [address] SARS/FLU A+B/RSV by NAAT/Mol ecularon 10-08-2023 SARS/FLU [...] operators who are performing tests using either SimuForm DX or LicenseMetrics systems and is limited to laboratories that [...] repeat. Fact Sheet for Healthcare Providers: https://www.fda.gov/media /526961/download Fact Sheet for Patients: https://www.fda.gov/media /756682/download [facility] Comment on above: Performed By: #### C OVFLR #### [facility] ([id number]) [address] [place] [address], [place] [address] Consultation Noteon 12-18-19 20 Consultation Note [id number] Normal [facility] Ambulatory Patient Education on 06-04-2018 Ambulatory Patient Education Patient Education MaterialsName: Comfort Maldonado Current Date: 06/04/2018 11:43:12 [place] 1995 following sheet(s) are the Patient Education Leaflets for Comfort Maldonado Normal [facility] Gastroenterology Office/Clin ic Noteon 06-04-2018 Gastroenterology Office/Clinic [...] her being referred to Dr. Bowers at [facility] in [place]. She states that she had a colonoscopy [...] _Trang Harrison MD 06/05/18 15:58 EST Normal [facility] Vital Signs Date Time Vital Sign Value Performing Clinician Facility 06-10-2024 08:43-0500 Body weight 72.12 kg Sherry Aung DO Work Phone: [facility] 06-10-2024 08:43-0500 Diastolic blood pressure 70 mm[Hg] Sherry Aung DO Work Phone: [facility] 06-10-2024 08:43-0500 Systolic blood pressure 110 mm[Hg] Sherry Aung DO Work Phone: [facility] 06-05-2024 09:00-0500 Body mass index (BMI) [Ratio] 26.55 kg/m2 [facility] 1 [facility] 06-05-2024 09:00-0500 Body temperature 98.4 [degF] [facility] 1 [facility] 06-05-2024 09:00-0500 Body weight 63.78 kg Ppl[facility] 1 [facility] 06-05-2024 09:00-0500 Diastolic blood pressure 73 mm[Hg] [facility] 1 [facility] 06-05-2024 09:00-0500 Heart rate 99 /min [facility] 1 [facility] 06-05-2024 09:00-0500 Respiratory rate 16 /min [facility] 1 [facility] 06-05-2024 09:00-0500 Systolic blood pressure 114 mm[Hg] [facility] 1 [facility] 06-03-2024 08:25-0500 Body weight 70.76 kg Sherry Aung DO Work Phone: [facility] 06-03-2024 08:25-0500 Diastolic blood pressure 68 mm[Hg] Sherry Aung DO Work Phone: [facility] 06-03-2024 08:25-0500 Systolic blood pressure 114 mm[Hg] Sherry Aung DO Work Phone: [facility] 05-16-2024 09:01-0400 Body weight 70.67 kg Sherry Uang DO Work Phone: [facility] 05-16-2024 09:01-0400 Diastolic blood pressure 64 mm[Hg] Sherry Aung DO Work Phone: [facility] 05-16-2024 09:01-0400 Systolic blood pressure 120 mm[Hg] Sherry Aung DO Work Phone: [facility] 05-15-2024 16:05-0400 Diastolic blood pressure 72 mm[Hg] [address] 05-15-2024 16:05-0400 Heart rate 93 /min [address] 05-15-2024 16:05-0400 Systolic blood pressure 110 mm[Hg] [address] 05-02-2024 09:35-0400 Body weight 68.58 kg Sayra BROWN Work Phone: [facility] 05-02-2024 09:35-0400 Diastolic blood pressure 68 mm[Hg] Sayra BROWN Work Phone: [facility] 05-02-2024 09:35-0400 Systolic blood pressure 110 mm[Hg] Sayra BROWN Work Phone: [facility] 10-25-2023 11:28-0400 Body temperature 99.1 [degF] Wl 2 [facility] 10-25-2023 11:28-0400 Diastolic blood pressure 62 mm[Hg] [facility] 2 [facility] 10-25-2023 11:28-0400 Heart rate 74 /min Wl 2 [facility] 10-25-2023 11:28-0400 Respiratory rate 18 /min Wl 2 [facility] 10-25-2023 11:28-0400 Systolic blood pressure 97 mm[Hg] [facility] 2 [facility] 10-25-2023 08:54-0400 Body mass index (BMI) [Ratio] 25.32 kg/m2 [facility] 2 [facility] 10-25-2023 08:54-0400 Body weight 60.78 kg [facility] 2 [facility] 08-30-2023 11:44-0500 Body temperature 98.2 [degF] [facility] 1 [facility] 08-30-2023 11:44-0500 Diastolic blood pressure 68 mm[Hg] [facility] 1 [facility] 08-30-2023 11:44-0500 Heart rate 73 /min [facility] 1 [facility] 08-30-2023 11:44-0500 SaO2% (BldA) [Mass fraction] 98 % [facility] 1 [facility] 08-30-2023 11:44-0500 Systolic blood pressure 99 mm[Hg] [facility] 1 [facility] 08-30-2023 09:00-0500 Body mass index (BMI) [Ratio] 26.38 kg/m2 [facility] 1 [facility] 08-30-2023 09:00-0500 Body weight 63.32 kg [facility] 1 [facility] Encounters Encounter Date Encounter Type Care Provider Facility Start: 06-10-2024 End: 06-10-2024 Carlosboo flowsheet Sherry Horan DO Work Phone: [facility] Start: 06-10-2024 End: 06-10-2024 Bamboo flowsheet Sherry Aung DO Work Phone: [facility] Start: 06-10-2024 End: 06-10-2024 Office outpatient visit 15 minutes Sherry Aung DO Work Phone: [facility] Comment on above: Third trimester preg delfina; 35 weeks gestation of ; Herpes Start: 06-05-2024 End: 06-05-[address] [facility] Infusion Chair 1 [facility] Comment on above: Crohn's disease of s mall and large intestines with complication (CMS-HCC) (Primary Dx) Start: 06-03-2024 End: 06-03-2024 Bamboo flowsheet Sherry Aung DO Work Phone: [facility] Start: 06-03-2024 End: 06-03-2024 Bamboo flowsheet Sherry Aung DO Work Phone: [facility] Start: 06-03-2024 End: 06-03-2024 Office outpatient visit 15 minutes Sherry Aung DO Work Phone: [facility] Comment on above: Third trimester preg delfina; 34 weeks gestation of Start: 06-03-2024 End: 06-03-2024 ambulatory SHERRY AUNG Not Available Start: 05-30-2024 End: 05-30-2024 ambulatory SHERRY R AUNG [facility] Start: 05-17-2024 End: 05-17-2024 Orders Only Akila Snider RN [facility] at [facility] Comment on above: growth restric tion antepartum (Primary Dx); Crohn's disease of both small and large intestine with intestinal obstruction (CMS-HCC); 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 Start: 05-16-2024 End: 05-16-2024 Bamboo flowsheet Sherry Aung DO Work Phone: [facility] Start: 05-16-2024 End: 05-16-2024 Bamboo flowsheet Sherry Aung DO Work Phone: [facility] Start: 05-16-2024 End: 05-16-2024 Office outpatient visit 15 minutes Sherry Aung DO Work Phone: [facility] Comment on above: 32 weeks gestation o f ; Third trimester Start: 05-16-2024 End: 05-16-2024 ambulatory SHERRY AUNG Not Available Start: 05-15-2024 End: 05-15-2024 Orders Only Jenni Brayden [facility]- [facility] at [facility] Comment on above: growth restric tion antepartum (Primary Dx) Crohn's disease of b oth small and large intestine with intestinal obstruction (CMS-HCC) (Primary Dx); growth restriction antepartum Start: 05-02-2024 End: 05-02-2024 Bamboo flowsheet Sayra BROWN Work Phone: [facility] Start: 05-02-2024 End: 05-02-2024 Bamboo flowsheet Sayra BROWN Work Phone: [facility] Start: 05-02-2024 End: 05-02-2024 Office outpatient visit 15 minutes Sayra BROWN Work Phone: [facility] Comment on above: 30 weeks gestation o f (Primary Dx); Third trimester Start: 05-02-2024 End: 05-02-2024 ambulatory SAYRA ANDREWS Not Available Start: 04-30-2024 End: 04-30-2024 ambulatory SHERRY R [facility] Start: 04-17-2024 End: 04-17-2024 ambulatory SHERRY R [facility] Start: 04-10-2024 End: 04-10-2024 ambulatory PREMA ABRAHAM [facility] Start: 04-04-2024 End: 04-04-2024 ambulatory SHERRY AUNG Not Available Start: 04-02-2024 End: 04-02-2024 ambulatory SHERRY [facility] Start: 03-29-2024 End: 03-29-2024 ambulatory [facility] Start: 03-28-2024 End: 03-28-2024 ambulatory DEVYN NICOLASHID [facility] Start: 03-28-2024 End: 03-28-2024 ambulatory SHERRY R [facility] Start: 03-19-2024 End: 03-19-2024 ambulatory YADIRA CHAU [facility] Start: 03-05-2024 End: 03-05-2024 ambulatory SAYRA ANDREWS Not Available Start: 02-29-2024 End: 02-29-2024 ambulatory SURESH [facility] Start: 02-20-2024 End: 02-20-2024 ambulatory SHERRY R [facility] Start: 02-14-2024 End: 02-14-2024 ambulatory [facility] Start: 02-06-2024 End: 02-06-2024 ambulatory SHERRY AUNG Not Available Start: 01-09-2024 End: 01-09-2024 ambulatory SHERRY AUNG Not Available Start: 12-20-2023 End: 12-20-2023 ambulatory PREMA [facility] Start: 12-11-2023 End: 12-11-2023 ambulatory SHERRY R [facility] Start: 12-08-2023 End: 12-08-2023 ambulatory SHERRY AUNG Not Available Start: 11-30-2023 End: 11-30-2023 [facility] Start: 10-25-2023 End: 10-25-2023 ambulatory [facility] Comment on above: Crohn's disease of s mall and large intestines with complication ([facility]-HCC) (Primary Dx) Start: 10-24-2023 Telephone encounter Amanda [facility] Start: 10-08-2023 End: 10-08-2023 Emergency department patient visit PREMA Peter ABRAHAM [facility] Start: 08-30-2023 End: 08-30-2023 ambulatory [facility] Infusion Chair 1 [facility] Comment on above: Crohn's disease of s mall and large intestines with complication (CMS-HCC) (Primary Dx) Start: 09-17-2019 End: 09-18-2019 Patient encounter procedure PREMA ABRAHAM Facility: Start: 06-04-2018 End: 06-05-2018 Patient encounter procedure Trang Harrison Facility:[facility] Procedures Date Procedure Procedure Detail Performing Clinician Start: 06-10-2024 Urnls dip stick/tabl et rgnt non-auto w/o micrscp Sherry Aung DO Work Phone: Start: 06-03-2024 Urnls dip stick/tabl et rgnt non-auto w/o micrscp Sherry Aung DO Work Phone: Start: 05-16-2024 Urnls dip stick/tabl et rgnt non-auto w/o micrscp Sherry Aung DO Work Phone: Start: 05-15-2024 nonstress test Na colin Roman MD Work Phone: Start: 02-06-2024 Microscopic observat ion [Identifier] in Cervix by Cyto stain Jenni Owen DIALYSIS TECHNICIAN Start: 11-30-2023 Follow-up visit Follow-up SURESH Noa JOE Start: 11-11-2021 Microscopic observat ion [Identifier] in Cervix by Cyto stain [facility] 1 Start: 03-04-2021 Adult depression scr eening assessment [facility] 1 Start: 04-14-2020 H/O: colostomy Colostomy status [facility] 1 Start: 12-03-2019 H/O: ileostomy Ileostomy status [facility] 1 Plan of Treatment Date Care Activity Detail Author Start: 02-05-2027 Screening for malign ant neoplasm of cervix Pap Smear [facility] Start: 06-05-2025 Adult BMI Screening Adult BMI Screen ing [facility] Start: 05-17-2025 End: 05-17-2025 US MFM with or without consult US MFM with or without consult Imaging Routine growth restriction antepartum Crohn's disease of both small and large intestine with intestinal obstruction (CMS-HCC) 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 Expected: 05/17/2025 (Approximate), Expires: 05/17/2025 [facility] Work Phone: Comment on above: Expected: 05/17/2025 (Approximate), Expires: 05/17/2025 Start: 05-15-2025 Tobacco Screening Tobacco Screening [facility] Start: 04-17-2025 Adult BMI Screening Adult BMI Screen ing [facility] Start: 11-11-2024 Screening for malign ant neoplasm of cervix Pap Smear [facility] Start: 10-24-2024 Adult BMI Screening Adult BMI Screen ing [facility] Start: 10-07-2024 Tobacco Screening Tobacco Screening [facility] Start: 08-30-2024 Adult BMI Screening Adult BMI Screen ing [facility] Start: 08-12-2024 End: 08-12-2024 Patient encounter procedure 08/12/2024 8:30 AM EST Office Visit [facility] [address] [facility] [facility] [address] [place] [address] Suresh Diaz MD [address], [facility] [address] [place] [address] [facility] Start: 08-01-2024 End: 08-01-2024 ambulatory 08/01/2024 9:30 AM EST Infusion [facility] [address] [facility] [place] [id number] [facility] Start: 06-17-2024 End: 06-17-2024 Patient encounter procedure 06/17/2024 1:50 PM EST Routine [facility] [address] [place] [address] Sayra Andrews PA [address] [place] [address] [facility] Start: 06-11-2024 End: 06-11-2024 Patient encounter procedure [facility] Start: 06-10-2024 End: 06-10-2025 Strep B DNA probe, amplification Strep B DNA probe, amplification Lab Routine Third trimester Expected: 06/10/2024 (Approximate), Expires: 06/10/2025 [facility] Work Phone: Comment on above: Expected: 06/10/2024 (Approximate), Expires: 06/10/2025 Start: 06-10-2024 End: 06-10-2024 Patient encounter procedure [facility] Comment on above: Arrived Start: 06-05-2024 End: 06-05-2024 ambulatory 06/05/2024 9:00 AM EST Infusion [facility] [address] [address] [facility] Start: 06-03-2024 End: 06-03-2024 Patient encounter procedure [facility] Comment on above: Arrived Start: 05-30-2024 End: 05-30-2024 Patient encounter procedure 05/30/2024 3:00 PM EDT Appointment [facility] [address] [facility] [place] [address] [facility] Start: 05-16-2024 End: 05-16-2024 Patient encounter procedure [facility] Comment on above: Arrived Start: 05-10-2024 Tobacco Screening Tobacco Screening [facility] Start: 05-02-2024 End: 05-02-2024 Patient encounter procedure 05/02/2024 9:30 AM EDT Routine [facility] [address] [place] [id number] Sayra Andrews PA [address] [place] [address] Arrived [facility] Comment on above: Arrived Start: 03-31-2024 Influenza vaccination Influenza Vacc ine [facility] Start: 12-20-2023 End: 12-20-2023 ambulatory 12/20/2023 9:00 AM EDT Infusion [facility] [address] [facility] [place] [address] [facility] Start: 11-30-2023 End: 11-30-2023 Patient encounter procedure 11/30/2023 9:30 AM EDT Office Visit [facility] [address] [facility] [place] [address] Suresh Diaz MD [address] [facility], [place] [place] [address] [facility] Start: 10-25-2023 End: 10-25-2023 ambulatory 10/25/2023 9:00 AM EDT Infusion [facility] [address] [facility] [place] [address] [facility] Start: 03-31-2023 Influenza vaccination Influenza Vacc ine [facility] Start: 03-04-2022 Depression Screening Depression Scre ening [facility] Start: 2012 DTaP,Tdap and Td Vaccines (1 - Tdap) DTaP,Tdap and Td Vaccines (1 - Tdap) [facility] Start: 2011 Adult BMI Follow Up Plan Adult BMI Follow Up Plan [facility] Start: 2005 Depression Screening Depression Scre ening [facility] End: 10-24-2024 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Quantiferon Gold Lab Routine Crohn's disease of small and large intestines with complication ([facility]-HCC) 1 Occurrences starting 10/25/2023 until 10/24/2024 [facility] Work Phone: Comment on above: 1 Occurrences starti ng 10/25/2023 until 10/24/2024 Payers Date Payer Category Payer Medicaid [id number] 2022 Medicaid [id number] 1995 Unknown [id number] 2.16.8 40.1.297076.3.579.2.196 1993 Unknown [id number] 2.16.84 0.1.977621.3.579.2.593 1993 Unknown [id number] 2.16.8 40.1.978635.3.579.2.1286 1993 Unknown [id number] 2.16.8 40.1.422020.3.579.2.1285 1993 Unknown [id number] 2.16.8 40.1.070562.3.579.2.1285 1993 Unknown [id number] 2.16.8 40.1.078284.3.579.2.1285 1993 Unknown [id number] 2.16.8 40.1.657647.3.579.2.1285 1993 Unknown [id number] 2.16.8 40.1.852932.3.579.2.1285 1993 Unknown [id number] 2.16.8 40.1.056129.3.579.2.1285 1993 Unknown [id number] 2.16.8 40.1.081124.3.579.2.1285 1993 Unknown [id number] 2.16.8 40.1.126866.3.579.2.1285 1993 Unknown [id number] 2.16.8 40.1.946266.3.579.2.1285 1993 Unknown [id number] 2.16.8 40.1.375875.3.579.2.1285 1993 Unknown [id number] 2.16.8 40.1.814278.3.579.2.1285 1993 Unknown [id number] 2.16.8 40.1.242449.3.579.2.1285 1993 Unknown [id number] 2.16.8 40.1.909258.3.579.2.1285 1993 Unknown [id number] 2.16.8 40.1.025340.3.579.2.1286 1993 Unknown [id number] 2.16.8 40.1.269928.3.579.2.1286 1993 Unknown [id number] 2.16.8 40.1.786996.3.579.2.1286 1993 Unknown [id number] 2.16.8 40.1.478963.3.579.2.1286 1993 Unknown [id number] 2.16.8 40.1.117202.3.579.2.1286 1993 Unknown [id number] 2.16.8 40.1.420393.3.579.2.1286 1993 Unknown [id number] 2.16.8 40.1.626214.3.579.2.1286 1993 Unknown [id number] 2.16.84 0.1.827266.3.579.2.1259 1993 Unknown [id number] 2.16.84 0.1.227649.3.579.2.1259 1993 Unknown [id number] 2.16.84 0.1.917250.3.579.2.1259 1993 Unknown [id number] 2.16.84 0.1.739735.3.579.2.9 1993 Unknown [id number] 2.16.84 0.1.126850.3.579.2.1259 1993 Unknown [id number] 2.16.84 0.1.725806.3.579.2.1259 1993 Unknown [id number] 2.16.84 0.1.200421.3.579.2.1259 1993 Unknown [id number] 2.16.84 0.1.521697.3.579.2.1259 1993 Unknown [id number] 2.16.8 40.1.208857.3.579.2.1286 1993 Unknown [id number] 2.16.8 40.1.911957.3.579.2.1286 1993 Unknown [id number] 2.16.8 40.1.451803.3.579.2.1286 1959 Self-pay [id number] 07-31-1799 Self-pay Social History Date Type Detail Facility Start: 07-05-2022 End: 12-08-2023 Tobacco smoking status NHIS Never smoked tobacco [facility] Start: 07-05-2022 End: 12-08-2023 Tobacco use and exposure Smokeless tobacco non-user [facility] Start: 05-10-2023 End: 10-08-2023 Alcohol intake Current drinker of alcohol (finding) [facility] Start: 05-10-2023 End: 12-08-2023 Alcohol intake [facility] Start: 08-06-2020 End: 12-08-2023 Social connection and isolation panel [facility] Do you belong to any clubs or organizations such as buddhism groups, unions, fraMENA OPPORTUNITIES or athletic groups, or school groups? No [facility] Are you now , , , , never or living with a partner? [facility] How often to you hav e a drink containing alcohol? 2-4 times a month [facility] Average Number of Drinks Not on file [facility] Do you feel stress - tense, restless, nervous, or anxious, or unable to sleep at night because your mind is troubled all the time - these days [OSQ] Only a little [facility] Start: 12-22-2021 Alcohol Comment socially [facility] Start: 1995 Sex Assigned At Not on file P [facility] Start: 05-02-2024 End: 06-03-2024 Alcoholic beverage intake Ex-drinker (finding) [facility] Start: 10-17-2023 [facility] Start: 10-16-2019 Sex Female (finding) [facility] Goals Date Patient Goal Desired Activity /State Personal health goal Comment on above: Formatting of this n ote might be different from the original. Evaluation of progress towards goal: Patient plans to return home with [facility] Clinical Notes 08-30-2023 to 06-10-2024 Paddy Garza LPN - 06/10/2024 8:30 AM Amador Abdalla RN - 06/05/2024 9:00 AM Amador Abdalla RN - 06/05/2024 9:00 AM Eleazar Garza LPN - 06/03/2024 8:30 AM EST Note Date & Type Note Facility 06-10-2024 History of Presen t illness Narrative Reason [...] Constitutional: Appearance: Normal appearance. She is well-developed. Genitourinary: Vulva normal. Cardiovascular: Rate and Rhythm: Normal rate and [...] nursing note reviewed. Exam conducted with a machinist set up present. Vitals: There is no height or weight on file to calculate BMI. BP: 110/70 Patient's last menstrual period was 10/03/2023. ASSESSMENT & PLAN ICD-10-CM 1. Third trimester Z34.93 POCT urinalysis dipstick manually resulted Strep B DNA probe, amplification 2. 35 weeks gestation of Z3A.35 POCT urinalysis dipstick manually resulted Patient is doing well but has complaints of being tired and having maternal discomfort due to . Patient verbalized frequent movement and was instructed to perform kick counts three times per day. labor precautions were given, LARC consent was signed/declined, and GBS was obtained. Patient is setup for on 07/19/2024 Orders Placed This Encounter Procedures Strep B DNA probe, amplification POCT urinalysis dipstick manually resulted Follow Up: Patient is to return to office in 1 week for routine OB appointment Documented by Paddy Garza LPN on behalf of: Sherry Horan DO documented in this encounter [facility] 06-05-2024 History of Presen t illness Narrative IV Infusion START time: 914 Patient here for Entyvio infusion. Patient denies any recent infections, open wounds, recent/future surgery, or insurance changes. IV started with 22g needle to Right AC by Renuka Middleton RN x1 attempt. Patient tolerated well. Remicade Lot# [id number] Exp- 08/27/2026 Time out performed prior to medication administration. Name, , medication(s) verified IV Infusion END time: 1125 patient infusion complete. IV discontinued, catheter intact, vitals WNL. Patient tolerated infusion well PIV flushed with 10 ml of 0.9% NS after medication infused documented in this encounter [facility] 06-03-2024 History of Presen t illness Narrative [...] nursing note reviewed. Exam conducted with a machinist set up present. Vitals: There is no height or [...] Sherry Horan DO documented in this encounter [facility] 05-16-2024 History of Presen t illness Narrative [...] nursing note reviewed. Exam conducted with a machinist set up present. Vitals: There is no height or [...] Estimated Date of Delivery: 07/09/24. Discussed recent [facility] appointment with patient and delivery due to SGA & Crohn's Disease. Nursing will obtain office note from MFM appointment yesterday. Patient given order to have NST/BPP done locally at [facility]. Documented by Paddy Garza LPN on behalf of: Sherry Horan DO documented in this encounter [facility] 05-15-2024 History of Presen t [...] all scheduled appointments documented in this encounter [facility] 05-02-2024 History of Presen t illness [...] of: STEPHANIE Thorne documented in this encounter [facility] 10-25-2023 History of Presen t illness Narrative 0900 Patient here for Avsola infusion. Patient denies any recent infections, open wounds, recent/future surgery, or insurance changes . IV started with 22g needle to right AC by paddy gill x 1 attempt . Patient tolerated well. Avsola x 2 vials, lot# [id number], exp date Avsola x 1 vial, lot# [id number], exp date 02/27/2027 Time out performed with [...] of info given. documented in this encounter [facility] 10-24-2023 Miscellaneous Notes Formattin g of this note might be different from the original. Patient currently receiving Avsola 5mg/kg every 8 weeks. However due to telecommunicator supervisor delay we are unable to obtain medication. Prior auth request forms completed for Remicade 5mg/kg to be given every 56 days, faxed to [phone] Remicade approved for 5mg/kg (400mg) for 7 visits from 10/25/2023-10/23/2024. Auth # [id number] Referral placed. Therapy plan updated. Flowsheet updated. documented in this encounter [facility] 10-24-2023 Telephone encount er Note Patient currently receiving Avsola 5mg/kg every 8 weeks. However due to telecommunicator supervisor delay we are unable to obtain medication. Prior auth request forms completed for Remicade 5mg/kg to be given every 56 days, faxed to [phone] [facility] 10-24-2023 Telephone encount er Note Remicade approved for 5mg/kg (400mg) for 7 visits from 10/25/2023-10/23/2024. Auth # [id number] Referral placed. Therapy plan updated. Flowsheet updated. [facility] 08-30-2023 History of Presen t illness Narrative 0906 Patient here for Avsola infusion. Patient denies any recent infections, open wounds, recent/future surgery, or insurance changes . Site cleansed with alcohol. IV started with 22g needle by Juan M GILL in right antecube. Patient tolerated well. 1142 patient infusion complete. IV discontinued at 1142. Patient tolerated infusion well. documented in this encounter [facility] Evaluation note Diagnosis Crohn's disease of small and large intestines with complication (CMS-HCC)- Primary [facility] Diagnosis Crohn's disease of small and large intestines with complication (CMS-HCC)- Primary [facility]* Diagnosis 30 weeks gestation of - Primary Third trimester state, incidental documented in this encounter [facility]* Diagnosis Crohn's disease of both small and large intestine with intestinal obstruction (CMS-HCC)- Primary growth restriction antepartum growth restriction antepartum- Primary documented in [facility] Diagnosis Crohn's disease of both small and large intestine with intestinal obstruction (CMS-HCC)- Primary growth restriction antepartum [facility] Diagnosis 32 weeks gestation of Third trimester state, incidental documented in this encounter [facility]* Diagnosis growth restriction antepartum- Primary Crohn's disease of both small and large intestine with intestinal obstruction (CMS-HCC) 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 documented in this encounter [facility]* Diagnosis Third trimester state, incidental 34 weeks gestation of documented in this encounter [facility]* Diagnosis Crohn's disease of small and large intestines with complication (CMS-HCC)- Primary [facility]* Diagnosis Third trimester state, incidental 35 weeks gestation of Herpes Herpes simplex without mention of complication documented in this encounter [facility] HealthcareInstructionsNot on filedocumented in this encounterPro[facility] SystemInstructionsNot on filedocumented in this encounterProSt. [facility] SystemInstructionsNot on filedocumented in this encounterProSt. [facility] SystemInstructionsNot on filedocumented in this encounterProMer[facility] InstructionsNot on filedocumented in this encounterProMercy Health St[facility] Summary Purpose Family History No Family [...] section and content) DATE CREATED AUTHOR 07/08/2018 [facility] DATE CREATED AUTHOR AUTHOR'S ORGANIZ ATION 09/20/2019 [facility] DATE CREATED AUTHOR AUTHOR'S ORGANIZ ATION 12/18/2019 [facility] DATE CREATED AUTHOR AUTHOR'S ORGANIZ ATION 04/03/2024 [facility] DATE CREATED AUTHOR AUTHOR'S ORGANIZ ATION 06/01/2024 [facility] DATE CREATED AUTHOR AUTHOR'S ORGANIZ ATION 06/03/2024 [facility] EPIC DATE CREATED AUTHOR AUTHOR'S ORGANIZ ATION 06/06/2024 [facility] Reason for Visit (unrecogniz ed section and content) Reason Comments Outpatient Infusion Avsola Specialty Diagnoses / Procedures Referred By Contac t Referred To Contact Gastroenterology Diagnoses Crohn's disease of both small and large intestine with unspecified complications Renflexis 400mg q8 weeks, 7 visits, 02.02.23 - 24, [facility], Crohn's Procedures INJECTION, INFLIXIMAB-AXXQ, BIOSIMILAR, (AVSOLA), 10 MG INFUSION Prema Abraham MD [address] [place] [address] [facility] [address] [address] Referral ID Status Reason Start Date Expiration Date V isits Requested Visits Authorized [id number] Authorized 02/02/2023 02/02/2024 7 7 Reason Comments Outpatient Infusion Avsola Reason Comments Routine Visit Reason Comments add on NST for [facility] Specialty Diagnoses / Procedures Referred By Contac t Referred To Contact Maternal and Medicine Diagnoses growth restriction antepartum Procedures nonstress test - Maternal Medicine Devyn Roman MD [address] [place] [address] Phone: tel: fax: Maternal- Medicine at [facility] [address] [place] [address] Phone: tel: fax: Referral ID Status Reason Start Date Expiration Date V isits Requested Visits Authorized [id number] Pending Review 05/15/2024 05/15/2025 1 1 Reason Comments Outpatient Infusion Remicade Specialty Diagnoses / Procedures Referred By Contmarkus t Referred To Contact Gastroenterology Diagnoses Crohn's disease of both small and large intestine with unspecified complications Remicade 5mg/kg every 56 days ( 400 mg) Auth'd from 10/25/2023-10/23/2024 for 7 Visits, [facility], Crohn's Procedures RI INFLIXIMAB INJECTION INFUSION Prema Abraham MD [address] [place] [id number] Phone: tel: fax: [facility] [address] [place] [phone] Phone: tel: fax: Referral ID Status Reason Start Date Expiration Date V isits Requested Visits Authorized [id number] Authorized 12/20/2023 12/19/2024 7 7 Care Teams (unrecognized sec tion and content) Workcell Operator Relationship Specialty Start Date End Date Prema Abraham MD [address] [place], [place] [id number] PCP - General Family Medicine 12/17/19 Workcell Operator Relationship Specialty Start Date End Date Prema Abraham MD [address] [place] [id number] PCP - General Family Medicine 10/08/23 Workcell Operator Relationship Specialty Start Date End Date Prema Abraham MD [address] [place] [address] PCP - General Family Medicine 10/08/23 Workcell Operator Relationship Specialty Start Date End Date Prema Abraham MD [address] [place] [address] PCP - General Family Medicine 02/29/24 Workcell Operator Relationship Specialty Start Date End Date Prema Abraham MD [address] [place] [address] PCP - General Family Medicine 02/29/24 Workcell Operator Relationship Specialty Start Date End Date Prema Abraham MD [address] [place], [place] [id number] PCP - General Family Medicine 02/29/24 Workcell Operator Relationship Specialty Start Date End Date Prema Abraham MD [address] [place] [phone] PCP - General Family Medicine 02/29/24 FOR [...] BE BASED ON THE PRIMARY CLINICAL RECORDS. [employer] [facility]. provides no warranty or guarantee of the accuracy or completeness of information in this document.
== END 2024-06-10 20:30 | disposition home or self-care (01) ==
LOC: LAB 20:29
PROVIDERS: PCP Family Medicine; Visit Provider Obstetrics & Gynecology
DX: Z34.93 Encounter for supervision of normal pregnancy, unspecified, third trimester (principal); Z3A.35 35 weeks gestation of pregnancy
CPT/HCPCS: 87081; 87150

== ENCOUNTER 2024-06-11 07:38 | Outpatient (OUT) | payer MEDICAID, SELFPAY ==
--- OUTSIDE RECORDS SUMMARY | 2024-06-11 07:42 | XMS_ITS | CCD ---
Author Organization [facility] Care Team Providers Care Outreach Director Name Role Phone Trang Harrison Unavailable Unavailable Prema Abraham Unavailable Unavaila PREMA Mahan Admitting Unavailable PREMA ABRAHAM Attending Unavailable PREMA ABRAHAM Primary Care Unavailable ALLISON TOWNSEND V Consulting Unavailable PREMA ABRAHAM Consulting Unavailable Prema Abraham MD Primary Care Provider [phone] Prema Abraham MD Primary Care Provider [phone] PREMA ABRAHAM Primary Care Unavailable AUNG, SHERRY [...] Care Unavailable AUNG, SHERRY R Referring Unavailable VIGNESH ABRAHAMIA E Primary [...] Unavailable ABRAHAM, PREMA E Primary Care Unavailable SURESH DIAZ Referring Unavailable ABRAHAM, PREMA E Referring Unavailable ABRAHAM, PREMA E Primary Care Unavailable AUNG, SHERRY Attending Unavailable AUNG, SHERRY Attending Unavailable JULIANA, SAYRA Attending Unavailable AUNG, SHERRY Attending Unavailable JULIANA, SAYRA Attending Unavailable AUNG, SHERRY Attending Unavailable AUNG, SHERRY Attending Unavailable AUNG, [...] 10 tablet 0 10/08/2023 Active Vit-Fe Fumarate-FA (KlipfolioENSE VITAMINS PO) (12 sources) Start: 11-16-2023 take 1 dose by mouth once daily Vit-Fe Fumarate-FA (Curverider VITAMINS PO) 1 each Daily 11/16/2023 Active [...] UA Negative Negative - 4(70) +++ mg/dL [facility] Blood, UA Positive Negative - 50 Kal/mcL [facility] Clarity, UA Clear [facility] Color, UA Yellow [facility] Glucose, UA Negative Negative - 1999(110) ++++ mg/dL [facility] Interpretation and review of laboratory results Abnormal [facility] Ketones, UA Negative Negative - 160(16) ++++ mg/dL [facility] Leukocytes, UA Negative Negative - 500+++ Sandra/mcL [facility] Nitrite, UA Negative Negative - Positive [facility] pH, UA 6 5 - 9 [facility] Protein, UA Negative Negative - 2000(20) ++++ mg/dL [facility] Spec Grav, UA 1.02 1 - 1.03 [facility] Urobilinogen, UA 1.0 0.2 - 12 mg/dL [facility] Urinalysis macro (dipstick) panel (U)on 06-03-2024 Bilirubin, UA Negative Negative - 4(70) +++ mg/dL [facility] Blood, UA Negative Negative - 50 Kal/mcL [facility] Clarity, UA Clear [facility] Color, UA Yellow [facility] Glucose, UA Negative Negative - 1999(110) ++++ mg/dL [facility] Interpretation and review of laboratory results Normal [facility] Ketones, UA Negative Negative - 160(16) ++++ mg/dL [facility] Leukocytes, UA Negative Negative - 500+++ Sandra/mcL [facility] Nitrite, UA Negative Negative - Positive [facility] pH, UA 5.5 5 - 9 [facility] Protein, UA Negative Negative - 2000(20) ++++ mg/dL [facility] Spec Grav, UA 1.03 1 - 1.03 [facility] Urobilinogen, UA 0.2 0.2 - 12 mg/dL [facility] Urinalysis macro (dipstick) panel (U)on 05-16-2024 Bilirubin, UA Negative Negative - 4(70) +++ mg/dL [facility] Blood, UA Positive Negative - 50 Kal/mcL [facility] Comment on above: trace-intact Clarity, UA Clear [facility] Color, UA Yellow [facility] Glucose, UA Negative Negative - 1999(110) ++++ mg/dL [facility] Interpretation and review of laboratory results Abnormal [facility] Ketones, UA Negative Negative - 160(16) ++++ mg/dL [facility] Leukocytes, UA Negative Negative - 500+++ Sandra/mcL [facility] Nitrite, UA Negative Negative - Positive [facility] pH, UA 6 5 - 9 [facility] Protein, UA Negative Negative - 2000(20) ++++ mg/dL [facility] Spec Grav, UA 1.025 1 - 1.03 [facility] Urobilinogen, UA 0.2 0.2 - 12 mg/dL [facility] No Panel Informationon 05-15 Patient Name: Kishor Maldonado Patient : 1995 NST Objective Findings: Variability: Moderate Decelerations: None Accelerations: Yes Acoustic Stimulator: No Baseline: 130 BPM Uterine Irritability: Yes Contractions: Not present Comments: Uterine irritability noted, intercourse this morning. [facility] instructions/handout and labor precautions reviewed. NST Interpretation: Nonstress Test Interpretation: Reactive (Devyn Roman MD) NST performed by: Aislinn Richardson RN 05/15/2024 4:30 PM [facility] M. tuberculosis stim IFN-g p venkat (Kwadwod)on 03-29-2024 Mitogen minus Nil Result 1.22 IU/mL Normal [facility] Comment on above: Performed By: #### C AGNES, 1989-11, HA1C, CBCA, 5196-1, 93470-1, 32583-7, 2132-9, 55083-5, 8014-3, 42957-5 #### [facility] ([id number]) [address] [facility], [address] [place] [address] Nil Result 0.02 IU/mL Normal [facility] Comment on above: Result Comment: NOTE Test Performed by: [facility] [address] [place] [address] Rugby Union Footballer: Donnie Sanon Ph.D.; CLIA# [id number] Performed By: #### C AGNES, 1989-11, HA1C, CBCA, 5196-1, 85730-8, 63527-9, 2131-9, 87778-1, 8014-3, 46285-7 #### [facility] ([id number]) [address] [facility], [address] [place] [address] QuantiFERON-Tb Gold Plus Result Negative Normal Negative [facility] Comment on above: Result Comment: NOTE [...] Diagnosis of Tuberculosis in Adults and Children [Messiinsohkanu GOMEZ et. al. Clin. Infect. Dis. 2017;64(2):111-115]. The reference range for the 'TB1 Ag minus Nil Result' and 'TB2 Ag minus Nil Result' is an Interferon-gamma level <0.35 IU/mL. Performed By: #### C AGNES, 1989-11, HA1C, CBCA, 5196-1, 36116-2, 83076-4, 2132-9, 52573-6, 8014-3, 22844-0 #### [facility] ([id number]) [address], [address] [place] [address] TB1 Ag minus Nil Result NEG 0.01 Normal [facility] Comment on above: Performed By: #### C AGNES, 1989-11, HA1C, CBCA, 5196-1, 14523-9, 15314-1, 2132-9, 01821-5, 8014-3, 15947-1 #### [facility] ([id number]) [address], [address] [place] [address] TB2 Ag minus Nil Result NEG 0.01 Normal [facility] Comment on above: Performed By: #### C AGNES, 1989-11, HA1C, CBCA, 5196-1, 54502-4, 06200-2, 2-9, 63050-5, 8014-3, 52184-2 #### [facility] ([id number]) [address], [address] [place] [address] CBC AND AUTO DIFFon 12-11-19 24 ABSOLUTE BASOPHIL 0.0 X10E9/L Normal 0.0-0.2 [facility] Comment on above: Performed By: #### C AGNES, 1989-11, HA1C, CBCA, 5196-1, 92319-1, 71253-7, 2-9, 87133-8, 8014-3, 07604-5 #### [facility] ([id number]) [address], [address] [place] [address] ABSOLUTE NEUTROPHIL 5.5 X10E9/L Normal 1.5-6.6 [facility] Comment on above: Performed By: #### C AGNES, 1989-11, HA1C, CBCA, 5196-1, 62708-4, 57844-6, 2131-9, 54518-9, 8014-3, 26562-1 #### [facility] ([id number]) [address], [address] [place] [address] Basophils/100 WBC (Bld) 0.3 % Normal [facility] Comment on above: Performed By: #### C AGNES, 1989-11, HA1C, CBCA, 5196-1, 70268-0, 59394-6, 2-9, 25973-8, 8014-3, 57778-7 #### [facility] ([id number]) [address], [address] [place] [address] Eosinophils (Bld) [#/Vol] 0.2 10*3/uL Normal 0.0-0.4 [facility] Comment on above: Performed By: #### C AGNES, 1989-11, HA1C, CBCA, 5196-1, 55884-6, 49026-6, 2131-9, 01939-6, 8014-3, 32944-5 #### [facility] ([id number]) [address], [address] [place] [address] Eosinophils/100 WBC (Bld) 2.6 % Normal [facility] Comment on above: Performed By: #### C AGNES, 1989-11, HA1C, CBCA, 5196-1, 45268-2, 63724-2, 2131-9, 24521-2, 8014-3, 65496-6 #### [facility] ([id number]) [address], [address] [place] [address] Erythrocyte distribution width (RBC) [Ratio] 13.3 % Normal 11.5-15.0 [facility] Comment on above: Performed By: #### C AGNES, 1989-11, HA1C, CBCA, 5196-1, 27641-9, 47897-1, 2131-9, 66155-5, 8014-3, 54393-3 #### [facility] ([id number]) [address], [address] [place] [address] Hematocrit (Bld) [Volume fraction] 40.5 % Normal 35-47 [facility] Comment on above: Performed By: #### C AGNES, 1989-11, HA1C, CBCA, 5196-1, 12499-6, 96290-6, 2132-9, 72644-4, 8014-3, 56857-0 #### [facility] ([id number]) [address], [address] [place] [address] Hemoglobin (Bld) [Mass/Vol] 14.2 g/dL Normal 11.7-15.5 [facility] Comment on above: Performed By: #### C AGNES, 1989-11, HA1C, CBCA, 5196-1, 34863-2, 82360-6, 2131-9, 72873-6, 8014-3, 08854-5 #### [facility] ([id number]) [address] [facility], [address] [place] [address] Lymphocytes (Bld) [#/Vol] 1.3 10*3/uL Normal 1.0-3.5 [facility] Comment on above: Performed By: #### C AGNES, 1989-11, HA1C, CBCA, 5196-1, 29159-6, 33024-0, 2131-9, 75657-7, 8014-3, 41581-1 #### [facility] ([id number]) [address] [facility], [address] [place] [address] Lymphocytes/100 WBC (Bld) 18.2 % Normal [facility] Comment on above: Performed By: #### C AGNES, 1989-11, HA1C, CBCA, 5196-1, 42884-0, 68644-9, 2131-9, 51877-6, 8014-3, 35505-5 #### [facility] ([id number]) [address], [address] [place] [address] MCH (RBC) [Entitic mass] 30.7 pg Normal 27-34 [facility] Comment on above: Performed By: #### C AGNES, 1989-11, HA1C, CBCA, 5196-1, 18818-0, 13279-7, 2132-9, 46872-1, 8014-3, 44193-4 #### [facility] ([id number]) [address], [address] [place] [address] MCHC (RBC) [Mass/Vol] 35.2 g/dL Normal 32-36 [facility] Comment on above: Performed By: #### C AGNES, 1989-11, HA1C, CBCA, 5196-1, 22588-5, 59603-2, 2132-03, 61088-3, 8014-3, 52303-0 #### [facility] ([id number]) [address], [address] [place] [address] MCV (RBC) [Entitic vol] 87 fL Normal 80-100 [facility] Comment on above: Performed By: #### C AGNES, 1989-11, HA1C, CBCA, 6-1, 40142-1, 25997-4, 2132-03, 08915-1, 8014-3, 98326-9 #### [facility] ([id number]) [address], [address] [place] [address] Monocytes (Bld) [#/Vol] 0.4 10*3/uL Normal 0-0.9 [facility] Comment on above: Performed By: #### C AGNES, 1989-11, HA1C, CBCA, 5196-1, 02260-9, 70086-1, 2132-03, 60121-7, 8014-3, 40047-5 #### [facility] ([id number]) [address], [address] [place] [address] Monocytes/100 WBC (Bld) 5.1 % Normal [facility] Comment on above: Performed By: #### C AGNES, 1989-11, HA1C, CBCA, 5196-1, 26120-4, 41669-2, 9, 00634-6, 8014-3, 48561-5 #### [facility] ([id number]) [address], [address] [place] [address] Neutrophils/100 WBC (Bld) 73.8 % Normal [facility] Comment on above: Performed By: #### C AGNES, 1989-11, HA1C, CBCA, 5196-1, 35366-6, 58879-9, 2132-9, 60973-7, 8014-3, 18953-0 #### [facility] ([id number]) [address], [address] [place] [address] Platelet mean volume (Bld) [Entitic vol] 9.1 fL Normal 7-12 [facility] Comment on above: Performed By: #### C AGNES, 1989-11, HA1C, CBCA, 5196-1, 36079-5, 37758-5, 2-9, 47468-6, 8014-3, 30751-4 #### [facility] ([id number]) [address], [address] [place] [address] Platelets (Bld) [#/Vol] 254 10*3/uL Normal 150-450 [facility] Comment on above: Performed By: #### C AGNES, 1989-11, HA1C, CBCA, 5196-1, 41719-2, 55371-2, 2132-9, 66542-4, 8014-3, 82923-3 #### [facility] ([id number]) [address], [address] [place] [address] RBC COUNT 4.63 X10E12/L Normal 3.80-5.20 [facility] Comment on above: Performed By: #### C AGNES, 1989-11, HA1C, CBCA, 5196-1, 05395-6, 00255-4, 2132-9, 40674-6, 8014-3, 96508-6 #### [facility] ([id number]) [address], [address] [place] [address] WBC (Bld) [#/Vol] 7.4 10*3/uL Normal 4.0-11.0 [facility] Comment on above: Performed By: #### C AGNES, 1989-11, HA1C, CBCA, 5196-1, 09396-0, 70663-4, 2132-9, 77105-6, 8014-3, 91254-2 #### [facility] ([id number]) [address], [address] [place] [address] COMPREHENSIVE METABOLIC PANE Jesse 12-11-2023 Albumin [Mass/Vol] 4.3 g/dL Normal 3.2-5.3 [facility] Comment on above: Performed By: #### C AGNES, 1989-11, HA1C, CBCA, 5196-1, 48187-0, 27390-5, 2131-9, 79933-6, 8014-3, 13452-4 #### [facility] ([id number]) [address], [address] [place] [address] ALP [Catalytic activity/Vol] 48 U/L Normal 39-130 [facility] Comment on above: Performed By: #### C AGNES, 1989-11, HA1C, CBCA, 5196-1, 48278-3, 42361-2, 2131-9, 09695-9, 8014-3, 91023-6 #### [facility] ([id number]) [address], [address] [place] [address] ALT [Catalytic activity/Vol] 13 U/L Normal 0-31 [facility] Comment on above: Performed By: #### C AGNES, 1989-11, HA1C, CBCA, 5196-1, 19196-2, 84929-5, 2131-9, 91232-7, 8014-3, 09258-2 #### [facility] ([id number]) [address], [address] [place] [address] Anion gap [Moles/Vol] 10 mmol/L Normal 5-15 [facility] Comment on above: Performed By: #### C AGNES, 1989-11, HA1C, CBCA, 5196-1, 62979-9, 84620-4, 2131-9, 81658-4, 8014-3, 00737-2 #### [facility] ([id number]) [address], [address] [place] [address] AST [Catalytic activity/Vol] 17 U/L Normal 0-41 [facility] Comment on above: Performed By: #### C AGNES, 1989-11, HA1C, CBCA, 5196-1, 95925-0, 79650-2, 2131-9, 61867-7, 8014-3, 29251-9 #### [facility] ([id number]) [address] [facility], [address] [place] [address] Bilirubin [Mass/Vol] 0.7 mg/dL Normal 0.3-1.2 [facility] Comment on above: Performed By: #### C AGNES, 1989-11, HA1C, CBCA, 5196-1, 87178-2, 59502-9, 2131-9, 40004-0, 8014-3, 76638-5 #### [facility] ([id number]) [address] [facility], [address] [place] [address] Calcium [Mass/Vol] 9.5 mg/dL Normal 8.5-10.5 [facility] Comment on above: Performed By: #### C AGNES, 1989-11, HA1C, CBCA, 5196-1, 99372-0, 01389-1, 2131-9, 02158-4, 8014-3, 85515-0 #### [facility] ([id number]) [address], [address] [place] [address] Chloride [Moles/Vol] 104 mmol/L Normal 98-109 [facility] Comment on above: Performed By: #### C AGNES, 1989-11, HA1C, CBCA, 5196-1, 31481-9, 17680-1, 2132-9, 70732-6, 8014-3, 35538-0 #### [facility] ([id number]) [address] [facility], [address] [place] [address] CO2 [Moles/Vol] 23 mmol/L Normal 22-32 [facility] Comment on above: Performed By: #### C AGNES, 1989-11, HA1C, CBCA, 5196-1, 92068-6, 04367-0, 9, 37314-9, 8014-3, 82206-9 #### [facility] ([id number]) [address] [facility], [address] [place] [address] Creatinine [Mass/Vol] 0.49 mg/dL Normal 0.40-1.00 [facility] Comment on above: Result Comment: METH OD TRACEABLE TO IDMS STANDARD Performed By: #### C AGNES, 1989-11, HA1C, CBCA, 5196-1, 62261-0, 63185-9, 2132-03, 63779-8, 8014-3, 17421-1 #### [facility] ([id number]) [address] [facility], [address] [place] [address] eGFR (CKD-EPI) NON-RACE DEPENDENT >90 Normal >59 [facility] Comment on above: Result Comment: Reported eGFR is based on the CKD-EPI 2020 equation that does not use a race coefficient. Performed By: #### C AGNES, 1989-11, HA1C, CBCA, 5196-1, 06476-3, 38473-3, 2132-03, 46534-1, 8014-3, 00470-2 #### [facility] ([id number]) [address] [facility], [address] [place] [address] Glucose [Mass/Vol] 92 mg/dL Normal 65-99 [facility] Comment on above: Performed By: #### C AGNES, 1989-11, HA1C, CBCA, 5196-1, 30564-5, 09368-1, 9, 37165-7, 8014-3, 31798-6 #### [facility] ([id number]) [address], [address] [place] [address] Potassium [Moles/Vol] 4.1 mmol/L Normal 3.5-5.0 [facility] Comment on above: Performed By: #### C AGNES, 1989-11, HA1C, CBCA, 5196-1, 33926-2, 64929-7, 9, 96238-3, 8014-3, 78252-8 #### [facility] ([id number]) [address], [address] [place] [address] Protein [Mass/Vol] 7.5 g/dL Normal 6.0-8.0 [facility] Comment on above: Performed By: #### C AGNES, 1989-11, HA1C, CBCA, 5196-1, 01185-6, 90833-0, 9, 91079-7, 8014-3, 43253-2 #### [facility] ([id number]) [address], [address] [place] [address] Sodium [Moles/Vol] 137 mmol/L Normal 134-146 [facility] Comment on above: Performed By: #### C AGNES, 1989-11, HA1C, CBCA, 5196-1, 60978-7, 40167-4, 9, 03916-4, 8014-3, 76534-1 #### [facility] ([id number]) [address], [address] [place] [address] Urea nitrogen [Mass/Vol] 6 mg/dL Normal 5-23 [facility] Comment on above: Performed By: #### C AGNES, 1989-11, HA1C, CBCA, 5196-1, 03368-8, 39747-0, 2131-9, 72398-9, 8014-3, 97412-2 #### [facility] ([id number]) [address] [place] [address], [address] [place] [address] CRP [Mass/Vol]on 12-11-2023 C REACTIVE PROTEIN 0.5 mg/dL Normal 0.000-0.744 [facility] Comment on above: Performed By: #### C AGNES, 1989-11, HA1C, CBCA, 5196-1, 69795-7, 98744-2, 2132-9, 16489-4, 8014-3, 78568-3 #### [facility] ([id number]) [address] [facility], [address] [place] [address] HBV surface Ag IA Qlon 12-10 HEPATITIS B SURF AG Negative Normal NEG [facility] Comment on above: Performed By: #### C AGNES, 1989-11, HA1C, CBCA, 5196-1, 46382-5, 61972-3, 2131-9, 85135-0, 8014-3, 22574-6 #### [facility] ([id number]) [address] [facility], [address] [place] [address] HCV Ab IA Qlon 12-11-2023 ANTI HCV W/PCR REFLX Non-Reactive Normal NRCT Pr [facility] Comment on above: Result Comment: If recent infection suspected, recommend repeat testing (>2 months). Jmwetg-lb-qpfdve ratio is <0.80. Performed By: #### C AGNES, 1989-11, HA1C, CBCA, 5196-1, 20360-9, 61559-1, 2131-9, 45496-6, 8014-3, 93484-0 #### [facility] ([id number]) [address] [facility], [address] [place] [address] HGB A1C (GLYCO-HGB)on 2023 Glucose [Mass/Vol] 103 mg/dL Normal [facility] Comment on above: Performed By: #### C AGNES, 1989-11, HA1C, CBCA, 5196-1, 44928-6, 47805-4, 213-9, 58865-6, 8014-3, 27904-7 #### [facility] ([id number]) [address] [place] [address], [address] [place] [address] HbA1c (Bld) [Mass fraction] 5.2 % Normal 4.4-5.6 [facility] Comment on above: Result Comment: NOTE ADA Guidelines Result HgbA1c Normal : less than 5.7 % Prediabetes : 5.7 % to 6.4 % Diabetes : > 6.4 % Use with caution in patients with abnormal hemoglobin variants as the half-life of red blood cells and in vivo glycation rates are affected. Performed By: #### Clyde ALARCON, 1989-11, HA1C, CBCA, 5196-1, 04300-5, 91996-2, 2131-9, 27569-4, 4-3, 80339-9 #### [facility] ([id number]) [address] [place] [address], [address] [place] [address] HIV 1+2 Ab+HIV1 p24 Ag IA Ql on 12-11-2023 HIV 1 and 2 Ab/Ag Screen Non-Reactive Normal NRCT [facility] Comment on above: Result Comment: This [...] #### Clyde ALARCON, 1989-11, HA1C, CBCA, 5196-1, 17257-2, 29406-9, 2131-9, 90933-1, 8014-3, 81640-4 #### [facility] ([id number]) [address] [place] [address], [address] [place] [address] Rubella virus IgG Qn (S)on 0 12-11-2023 RUBELLA IgG 30 IU/mL Normal [facility] Comment on above: Result Comment: Interpretation-------- <8 NEGATIVE-considered Not Immune 8-9 EQUIVOCAL-consider retesting with new specimen >9 POSITIVE-considered Immune Performed By: #### C AGNES, 1989-11, HA1C, CBCA, 5196-1, 57090-2, 59973-0, 2131-9, 28661-4, 8014-3, 31132-8 #### [facility] ([id number]) [address] [place] [address], [address] [address] T. pallidum IgG+IgM IA Ql (S )on 12-11-2023 Syphilis Total <0.2 Normal 0.0-0.8 [facility] Comment on above: Result Comment: NON REACTIVE No serologic evidence of infection to Treponema pallidum (syphilis). Repeat testing may be considered in patients with suspected acute or primary syphilis in 2 to 4 weeks. Performed By: #### C AGNES, 1989-11, HA1C, CBCA, 5196-1, 19627-2, 61895-4, 2131-9, 72922-5, 8014-3, 57400-5 #### [facility] ([id number]) [address] [place] [address], [address] [place] [address] VITAMIN B12on 12-11-2023 Cobalamin (Vitamin B12) [Mass/Vol] 142 pg/mL Low 180-914 [facility] Comment on above: Performed By: #### C AGNES, 1989-11, HA1C, CBCA, 5196-1, 08655-8, 66791-1, 2131-9, 10176-4, 8014-3, 54296-4 #### [facility] ([id number]) [address] [place] [address], [address] [place] [address] Vitamin D+Metabolites [Mass/ Vol]on 12-11-2023 VITAMIN D 25 HYD TOT 21.8 ng/mL Low 30-100 [facility] Comment on above: Result Comment: Vitamin D status 25 [place] Vitamin D Deficiency <20 ng/mL Insufficiency 20-29 ng/mL Sufficiency 30-100 ng/mL Toxicity >100 ng/mL NOTE: A pediatric reference range has not been established by the capsule machine operator of this kit. The [place] [employer] recommends a Vitamin D level of = or >20ng/mL in infants and children. Performed By: #### C MP, 1989-5, HA1C, CBCA, 5196-1, 35020-2, 21823-5, 2132-9, 66741-4, 8014-3, 73119-7 #### [facility] ([id number]) [address] [place] [address], [address] [place] [address] SARS/FLU A+B/RSV by NAAT/Mol ecularon 10-08-2023 SARS/FLU [...] operators who are performing tests using either [employer] or [employer] systems and is limited to laboratories that [...] repeat. Fact Sheet for Healthcare Providers: https://www.fda.gov/media /732046/download Fact Sheet for Patients: https://www.fda.gov/media /225654/download [facility] Comment on above: Performed By: #### C OVFLR #### [facility] ([id number]) [address] [place] [address] Consultation Noteon 12-18-19 Consultation Note [id number] [facility] Ambulatory Patient Education on 06-04-2018 Ambulatory Patient Education Patient Education MaterialsName: Comfort Maldonado Current Date: 06/04/2018 11:43:12 [place] 1995 following sheet(s) are the Patient Education Leaflets for Comfort Maldonado Normal [facility] Gastroenterology Office/Clin ic Noteon 06-04-2018 [...] her being referred to Dr. Bowers at [facility] in [place]. She states that she had a colonoscopy [...] Endoscopy history: Colonoscopy done on 04/17/2018 at [facility] Constitutional: 45 pound weight loss since September [...] _Trang Harrison MD 06/05/18 15:58 EST Normal [facility] Vital Signs Date Time Vital Sign Value Performing Clinician Facility 06-10-2024 08:43-0500 Body weight 72.12 kg [employer] Work Phone: [facility] 06-10-2024 08:43-0500 Diastolic blood pressure 70 mm[Hg] [employer] DO Work Phone: [facility] 06-10-2024 08:43-0500 Systolic blood pressure 110 mm[Hg] [employer] Work Phone: [facility] 06-05-2024 09:00-0500 Body mass index (BMI) [Ratio] 26.55 kg/m2 [facility] 1 [facility] 06-05-2024 09:00-0500 Body temperature 98.4 [degF] [facility] 1 [facility] [place] [facility] 06-05-2024 09:00-0500 Body weight 63.78 kg [facility] 1 [facility] 06-05-2024 09:00-0500 Diastolic blood pressure 73 mm[Hg] [facility] 1 [facility] 06-05-2024 09:00-0500 Heart rate 99 /min [facility] 1 [facility] 06-05-2024 09:00-0500 Respiratory rate 16 /min [facility] 1 [facility] 06-05-2024 09:00-0500 Systolic blood pressure 114 mm[Hg] [facility] 1 [facility] 06-03-2024 08:25-0500 Body weight 70.76 kg Sherry Aung DO Work Phone: [facility] 06-03-2024 08:25-0500 Diastolic blood pressure 68 mm[Hg] Sherry Aung DO Work Phone: [facility] 06-03-2024 08:25-0500 Systolic blood pressure 114 mm[Hg] Sherry Aung DO Work Phone: [facility] 05-16-2024 09:01-0400 Body weight 70.67 kg Sherry Aung DO Work Phone: [facility] 05-16-2024 09:01-0400 Diastolic blood pressure 64 mm[Hg] Sherry Aung DO Work Phone: [facility] 05-16-2024 09:01-0400 Systolic blood pressure 120 mm[Hg] Sherry Aung DO Work Phone: [facility] 05-15-2024 16:05-0400 Diastolic blood pressure 72 mm[Hg] [facility] [address] 05-15-2024 16:05-0400 Heart rate 93 /min [address] 05-15-2024 16:05-0400 Systolic blood pressure 110 mm[Hg] [address] 05-02-2024 09:35-0400 Body weight 68.58 kg Sayra BROWN Work Phone: [facility] 05-02-2024 09:35-0400 Diastolic blood pressure 68 mm[Hg] Sayra BROWN Work Phone: [facility] 05-02-2024 09:35-0400 Systolic blood pressure 110 mm[Hg] Sayra BROWN Work Phone: [facility] 10-25-2023 11:28-0400 Body temperature 99.1 [degF] [facility] 2 [facility] 10-25-2023 11:28-0400 Diastolic blood pressure 62 mm[Hg] [facility] 2 [facility] 10-25-2023 11:28-0400 Heart rate 74 /min [facility] 2 [facility] 10-25-2023 11:28-0400 Respiratory rate 18 /min [facility] 2 [facility] 10-25-2023 11:28-0400 Systolic blood pressure 97 mm[Hg] [facility] 2 [facility] 10-25-2023 08:54-0400 Body mass index (BMI) [Ratio] 25.32 kg/m2 [facility] 2 [facility] 10-25-2023 08:54-0400 Body weight 60.78 kg [facility] 2 [facility] 08-30-2023 11:44-0500 Body temperature 98.2 [degF] [facility] 1 [facility] 08-30-2023 11:44-0500 Diastolic blood pressure 68 mm[Hg] [facility] 1 [facility] 08-30-2023 11:44-0500 Heart rate 73 /min [facility] 1 [facility] 08-30-2023 11:44-0500 SaO2% (BldA) [Mass fraction] 98 % [facility] 1 [facility] 08-30-2023 11:44-0500 Systolic blood pressure 99 mm[Hg] [facility] 1 [facility] 08-30-2023 09:00-0500 Body mass index (BMI) [Ratio] 26.38 kg/m2 [facility] 1 [facility] 08-30-2023 09:00-0500 Body weight 63.32 kg [facility] 1 [facility] Encounters Encounter Date Encounter Type Care Provider Facility Start: 06-10-2024 End: 06-10-2024 Bamboo flowsheet Sherry Aung DO Work Phone: [facility] Start: 06-10-2024 End: 06-10-2024 Bamboo flowsheet Sherry Aung DO Work Phone: [facility] Start: 06-10-2024 End: 06-10-2024 Office outpatient visit 15 minutes Sherry Aung DO Work Phone: [facility] Comment on above: Third trimester preg delfina; 35 weeks gestation of ; Herpes Start: 06-10-2024 End: 06-10-2024 ambulatory SHERRY AUNG Not Available Start: 06-05-2024 End: 06-05-2024 ambulatory Pplc [facility] Infusion Chair 1 [facility] Comment on above: Crohn's disease of s mall and large intestines with complication (CMS-HCC) (Primary Dx) Start: 06-03-2024 End: 06-03-2024 Bamboo flowsheet Sherry Aung DO Work Phone: [facility] Start: 06-03-2024 End: 06-03-2024 Bamboo flowsheet Sherry Aung DO Work Phone: [facility] Start: 06-03-2024 End: 06-03-2024 Office outpatient visit 15 minutes Hserry Aung DO Work Phone: [facility] Comment on above: Third trimester preg delfina; 34 weeks gestation of Start: 06-03-2024 End: 06-03-2024 ambulatory SHERRY AUNG Not Available Start: 05-30-2024 End: 05-30-2024 ambulatory SHERRY R AUNG [facility] Start: 05-17-2024 End: 05-17-2024 Orders Only Akila Snider RN [facility]- [facility] at [facility] Comment on above: growth restric tion [...] 05-15-2024 End: 05-15-2024 Orders Only Jenni Owen [facility] Maternal- Medicine at [facility] Comment on above: growth restric tion antepartum (Primary Dx) Crohn's disease of b oth small and large intestine with intestinal obstruction (CMS-HCC) (Primary Dx); growth restriction antepartum Start: 05-02-2024 End: 05-02-2024 Bamboo flowsheet Sayra BROWN Work Phone: [facility] Start: 05-02-2024 End: 05-02-2024 Bamboo flowsheet Sayra BROWN Work Phone: [facility] Start: 05-02-2024 End: 05-02-2024 Office outpatient visit 15 minutes Sayra BROWN Work Phone: [facility] Comment on above: 30 weeks gestation o f (Primary Dx); Third trimester Start: 05-02-2024 End: 05-02-2024 ambulatory SAYRA ANDREWS Not Available Start: 04-30-2024 End: 04-30-2024 ambulatory SHERRY [facility] Start: 04-17-2024 End: 04-17-2024 ambulatory SHERRY [facility] Start: 04-10-2024 End: 04-10-2024 ambulatory PREMA ABRAHAM [facility] Start: 04-04-2024 End: 04-04-2024 ambulatory SHERRY AUNG Not Available Start: 04-02-2024 End: 04-02-2024 ambulatory SHERRY R [facility] Start: 03-29-2024 End: 03-29-2024 ambulatory [facility] Start: 03-28-2024 End: 03-28-2024 ambulatory DEVYN [facility] Start: 03-28-2024 End: 03-28-2024 ambulatory SHERRY R [facility] Start: 03-19-2024 End: 03-19-2024 ambulatory YADIRA CHAU [facility] Start: 03-05-2024 End: 03-05-2024 ambulatory SAYRA ANDREWS Not Available Start: 02-29-2024 End: 02-29-2024 ambulatory [facility] Start: 02-20-2024 End: 02-20-2024 ambulatory SHERRY R [facility] Start: 02-14-2024 End: 02-14-[address] [facility] Start: 02-06-2024 End: 02-06-2024 ambulatory SHERRY AUNG Not Available Start: 01-09-2024 End: 01-09-2024 ambulatory SHERRY AUNG Not Available Start: 12-20-2023 End: 12-20-2023 ambulatory [facility] Start: 12-11-2023 End: 12-11-2023 [facility] Start: 12-08-2023 End: 12-08-2023 ambulatory SHERRY AUNG Not Available Start: 11-30-2023 End: 11-30-2023 ambulatory SURESH [facility] Start: 10-25-2023 End: 10-25-2023 ambulatory [facility] Chair 2 [facility] Comment on above: Crohn's disease of s mall and large intestines with complication ([facility]-HCC) (Primary Dx) Start: 10-24-2023 Telephone encounter [facility] Start: 10-08-2023 End: 10-08-2023 Emergency department patient visit PREMA ABRAHAM [facility] Start: 08-30-2023 End: 08-30-2023 ambulatory [facility] In[facility] Chair 1 [facility] Comment on above: Crohn's disease of s mall and large intestines with complication (CMS-HCC) (Primary Dx) Start: 09-17-2019 End: 09-18-2019 Patient encounter procedure PREMA ABRAHAM Facility: Start: 06-04-2018 End: 06-05-2018 Patient encounter procedure Trang Harrison Facility:[facility] Procedures Date Procedure Procedure Detail Performing Clinician [...] ion [Identifier] in Cervix by Cyto stain [facility] 1 Start: 03-04-2021 Adult depression scr eening assessment [facility] 1 Start: 04-14-2020 H/O: colostomy Colostomy status [facility] 1 Start: 12-03-2019 H/O: ileostomy Ileostomy status [facility] 1 Plan of Treatment Date Care Activity Detail Author Start: 02-05-2027 Screening for malign ant neoplasm of cervix Pap Smear [facility] Start: 06-05-2025 Adult BMI Screening Adult BMI Screen ing [facility] Start: 05-17-2025 End: 05-17-2025 US MFM [...] 05/17/2025 Start: 05-15-2025 Tobacco Screening Tobacco Screening [facility] Start: 04-17-2025 Adult BMI Screening Adult BMI Screen ing [facility] Start: 11-11-2024 Screening for malign ant neoplasm of cervix Pap Smear [facility] Start: 10-24-2024 Adult BMI Screening Adult BMI Screen ing [facility] Start: 10-07-2024 Tobacco Screening Tobacco Screening [facility] Start: 08-30-2024 Adult BMI Screening Adult BMI Screen ing [facility] Start: 08-12-2024 End: 08-12-2024 Patient encounter procedure 08/12/2024 8:30 AM EST Office Visit [facility] [address] [place] [phone] Suresh Diaz MD [address] [facility] [address] [place] [address] [facility] Start: 08-01-2024 End: 08-01-2024 ambulatory 08/01/2024 9:30 AM EST Infusion [facility] [address] [place] [address] [address] [place] [address] [facility] Start: 06-17-2024 End: 06-17-2024 Patient encounter procedure 06/17/2024 1:50 PM EST Routine [facility] [address] [place] [id number] Sayra Andrews PA [address] [place] [address] [facility] Start: 06-11-2024 End: 06-11-2024 Patient encounter procedure [facility] at [facility] Start: 06-10-2024 End: 06-10-2025 Strep B DNA probe, amplification Strep B DNA probe, amplification Lab Routine Third trimester Expected: 06/10/2024 (Approximate), Expires: 06/10/2025 [facility] Work Phone: Comment on above: Expected: 06/10/2024 (Approximate), Expires: 06/10/2025 Start: 06-10-2024 End: 06-10-2024 Patient encounter procedure [facility] Comment on above: Arrived Start: 06-05-2024 End: 06-05-2024 ambulatory 06/05/2024 9:00 AM EST Infusion [facility] [address] [phone] [facility] Start: 06-03-2024 End: 06-03-2024 Patient encounter procedure [facility] Comment on above: Arrived Start: 05-30-2024 End: 05-30-2024 Patient encounter procedure 05/30/2024 3:00 PM EDT Appointment [facility] [address] [place] [address] [facility] Start: 05-16-2024 End: 05-16-2024 Patient encounter procedure [facility] Comment on above: Arrived Start: 05-10-2024 Tobacco Screening Tobacco Screening [facility] Start: 05-02-2024 End: 05-02-2024 Patient encounter procedure 05/02/2024 9:30 AM EDT Routine [facility] [address] [place] [address] Sayra Andrews PA [address] [place], [place] [id number] Arrived [facility] Comment on above: Arrived Start: 03-31-2024 Influenza vaccination Influenza Vacc ine [facility] Start: 12-20-2023 End: 12-20-2023 ambulatory 12/20/2023 9:00 AM EDT Infusion [facility] [address] [facility] [address] [place] [phone] [facility] Start: 11-30-2023 End: 11-30-2023 Patient encounter procedure 11/30/2023 9:30 AM EDT Office Visit [facility] [address] [facility] [address] [place] [address] Suresh Diaz MD [address] [facility] [address] [place] [address] [facility] Start: 10-25-2023 End: 10-25-2023 ambulatory 10/25/2023 9:00 AM EDT Infusion [facility] [address] [phone] [facility] Start: 03-31-2023 Influenza vaccination Influenza Vacc ine [facility] Start: 03-04-2022 Depression Screening Depression Scre [facility] Start: 2012 DTaP,Tdap and Td Vaccines (1 - Tdap) DTaP,Tdap and Td Vaccines (1 - Tdap) [facility] Start: 2011 Adult BMI Follow Up Plan Adult BMI Follow Up Plan [facility] Start: 2005 Depression Screening Depression Scre [facility] End: 10-24-2024 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Quantiferon Gold Lab Routine Crohn's disease of small and large intestines with complication ([facility]-HCC) 1 Occurrences starting 10/25/2023 until 10/24/2024 [facility] Work Phone: Comment on above: 1 Occurrences starti ng 10/25/2023 until 10/24/2024 Payers Date Payer Category Payer Medicaid [id number] 2022 Medicaid [id number] 1993 Unknown [id number] 2.16.8 40.1.024666.3.579.2.196 1993 Unknown [id number] 2.16.84 0.1.388679.3.579.2.593 1993 Unknown [id number] 2.16.8 40.1.224279.3.579.2.1286 1993 Unknown [id number] 2.16.8 40.1.119332.3.579.2.1286 1993 Unknown [id number] 2.16.8 40.1.729780.3.579.2.1285 1993 Unknown [id number] 2.16.8 40.1.011278.3.579.2.1285 1993 Unknown [id number] 2.16.8 40.1.985345.3.579.2.1285 1993 Unknown [id number] 2.16.8 40.1.450307.3.579.2.1285 1993 Unknown [id number] 2.16.8 40.1.412638.3.579.2.1285 1993 Unknown [id number] 2.16.8 40.1.491690.3.579.2.1285 1993 Unknown [id number] 2.16.8 40.1.973573.3.579.2.1285 1993 Unknown [id number] 2.16.8 40.1.664346.3.579.2.128 1993 Unknown [id number] 2.16.8 40.1.829057.3.579.2.1285 1993 Unknown [id number] 2.16.8 40.1.670733.3.579.2.1285 1993 Unknown [id number] 2.16.8 40.1.790030.3.579.2.1285 1993 Unknown [id number] 2.16.8 40.1.402689.3.579.2.1286 1993 Unknown [id number] 2.16.8 40.1.587045.3.579.2.6 1993 Unknown [id number] 2.16.8 40.1.528842.3.579.2.128 1993 Unknown [id number] 2.16.8 40.1.102836.3.579.2.1286 1993 Unknown [id number] 2.16.8 40.1.156201.3.579.2.128 1993 Unknown [id number] 2.16.8 40.1.001808.3.579.2.1285 1993 Unknown [id number] 2.16.8 40.1.740309.3.579.2.1285 1993 Unknown [id number] 2.16.8 40.1.118744.3.579.2.1285 1993 Unknown [id number] 2.16.8 40.1.684374.3.579.2.128 1993 Unknown [id number] 2.16.8 40.1.689772.3.579.2.1286 1993 Unknown [id number] 2.16.8 40.1.393164.3.579.2.1286 1993 Unknown [id number] 2.16.84 0.1.577062.3.579.2.9 1993 Unknown [id number] 2.16.84 0.1.835135.3.579.2.1259 1993 Unknown [id number] 2.16.84 0.1.716298.3.579.2.9 1993 Unknown [id number] 2.16.84 0.1.483330.3.579.2.9 1993 Unknown [id number] 2.16.84 0.1.497038.3.579.2.1259 1993 Unknown [id number] 2.16.84 0.1.012207.3.579.2.1259 1993 Unknown [id number] 2.16.84 0.1.858694.3.579.2.9 1993 Unknown [id number] 2.16.84 0.1.083197.3.579.2.9 1993 Unknown [id number] 2.16.84 0.1.923319.3.579.2.1259 1959 Self-pay [id number] 07-31-1799 Self-pay Social History Date Type Detail Facility Start: 07-05-2022 End: 12-08-2023 Tobacco smoking status MAIS Never smoked tobacco [facility] Start: 07-05-2022 End: 12-08-2023 Tobacco use and exposure Smokeless tobacco non-user [facility] Start: 05-10-2023 End: 10-08-2023 Alcohol intake Current drinker of alcohol (finding) [facility] Start: 05-10-2023 End: 12-08-2023 Alcohol intake [facility] Start: 08-06-2020 End: 12-08-2023 Social connection and isolation panel [facility] Do you belong to any clubs or organizations such as lutheran groups, unions, fraternal or athletic groups, or school groups? No [facility] Are you now , , , , never or living with a partner? [facility] How often to you hav e a drink containing alcohol? 2-4 times a month [facility] Average Number of Drinks Not on file [facility] Do you feel stress - tense, restless, nervous, or anxious, or unable to sleep at night because your mind is troubled all the time - these days [OSQ] Only a little [facility] Start: 12-22-2021 Alcohol Comment socially [facility] Start: 1995 Sex Assigned At Not on file [facility] Start: 05-02-2024 End: 06-03-2024 Alcoholic beverage intake Ex-drinker (finding) [facility] Start: 10-17-2023 [facility] Start: 10-16-2019 Sex [facility] (finding[facility] Goals Date Patient Goal Desired Activity /State Personal health goal Comment on above: Formatting of this n ote might be different from the original. Evaluation of progress towards goal: Patient plans to return home with [facility] Clinical Notes 08-30-2023 to 06-10-2024 Paddy Garza, WENDY - 06/10/2024 8:30 AM Amador Abdalla RN [...] nursing note reviewed. Exam conducted with a grinding wheel operator present. Vitals: There is no height or [...] Sherry Horan DO documented in this encounter [facility] 06-05-2024 History of Presen t illness Narrative IV Infusion START time: 15 Patient here for Entyvio infusion. Patient denies any recent infections, open wounds, recent/future surgery, or insurance changes. IV started with 22g needle to Right AC by Renuka Middleton RN x1 attempt. Patient tolerated well. Remicade Lot# [id number] Exp- 08/27/2026 Time out performed prior to medication administration. Name, , medication(s) verified IV Infusion END time: 1125 patient infusion complete. IV discontinued, catheter intact, vitals WNL. Patient tolerated infusion well PIV flushed with 10 ml of 0.9% NS after medication infused documented in this encounter [facility] 06-03-2024 History of Presen t illness Narrative [...] nursing note reviewed. Exam conducted with a grinding wheel operator present. Vitals: There is no height or [...] 1 weeks for routine OB appointment with ADRIANNA and WALTER's consent to be signed. Documented by Paddy Garza LPN on behalf of: Sherry Horan DO documented in this encounter [facility] 05-16-2024 History of Presen t illness Narrative [...] nursing note reviewed. Exam conducted with a grinding wheel operator present. Vitals: There is no height or [...] Estimated Date of Delivery: 07/09/24. Discussed recent M appointment with patient and delivery due to SGA & Crohn's Disease. Nursing will obtain office note from MFM appointment yesterday. Patient given order to have NST/BPP done locally at [facility]. Documented by Paddy Garza LPN on behalf of: Sherry Horan DO documented in this encounter [facility] 05-15-2024 History of Presen t illness [...] all scheduled appointments documented in this encounter [facility] 05-02-2024 History of Presen t illness Narrative [...] of: STEPHANIE Thorne documented in this encounter [facility] 10-25-2023 History of Presen t illness Narrative 0900 Patient here for Avsola infusion. Patient denies any recent infections, open wounds, recent/future surgery, or insurance changes . IV started with 22g needle to right AC by paddy gill x 1 attempt . Patient tolerated well. Avsola x 2 vials, lot# [id number], exp date Avsola x 1 vial, lot# [id number], exp date 02/27/2027 Time out performed with [...] of info given. documented in this encounter [facility] 10-24-2023 Miscellaneous Notes Formattin g of this note might be different from the original. Patient currently receiving Avsola 5mg/kg every 8 weeks. However due to capsule machine operator delay we are unable to obtain medication. Prior auth request forms completed for Remicade 5mg/kg to be given every 56 days, faxed to [phone] Remicade approved for 5mg/kg (400mg) for 7 visits from 10/25/2023-10/23/2024. Auth # [id number] Referral placed. Therapy plan updated. Flowsheet updated. documented in this encounter [facility] 10-24-2023 Telephone encount er Note Patient currently receiving Avsola 5mg/kg every 8 weeks. However due to capsule machine operator delay we are unable to obtain medication. Prior auth request forms completed for Remicade 5mg/kg to be given every 56 days, faxed to [phone] [facility] 10-24-2023 Telephone encount er Note Remicade approved for 5mg/kg (400mg) for 7 visits from 10/25/2023-10/23/2024. Auth # [id number] Referral placed. Therapy plan updated. Flowsheet updated. [facility] 08-30-2023 History of Presen t illness Narrative 0906 Patient here for Avsola infusion. Patient denies any recent infections, open wounds, recent/future surgery, or insurance changes . Site cleansed with alcohol. IV started with 22g needle by Juan M GILL in right antecube. Patient tolerated well. 1142 patient infusion complete. IV discontinued at 1142. Patient tolerated infusion well. documented in this encounter [facility] Evaluation note Diagnosis Crohn's disease of small and large intestines with complication (CMS-HCC)- Primary [facility] Diagnosis Crohn's disease of small and large intestines with complication (CMS-HCC)- Primary [facility]* Diagnosis 30 weeks gestation of - Primary Third trimester state, incidental documented in this encounter [facility]* Diagnosis Crohn's disease of both small and large intestine with intestinal obstruction (CMS-HCC)- Primary growth restriction antepartum growth restriction antepartum- Primary [facility] Diagnosis Crohn's disease of both small and large intestine with intestinal obstruction (CMS-HCC)- Primary growth restriction antepartum documented in this encounter [facility]* Diagnosis 32 weeks gestation of Third trimester state, incidental documented in this encounter [facility]* Diagnosis growth restriction antepartum- Primary Crohn's disease of both small and large intestine with intestinal obstruction (CMS-HCC) 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 documented in this encounter [facility]* Diagnosis Third trimester state, incidental 34 weeks gestation of documented in this encounter [facility]* Diagnosis Crohn's disease of small and large intestines with complication (CMS-HCC)- Primary documented in this encounter [facility]* Diagnosis Third trimester state, incidental 35 weeks gestation of Herpes Herpes simplex without mention of complication documented in this encounter [facility]ructionsNot on filedocumented in [facility]ructionsNot on filedocumented in this encounter[facility] SystemInstructionsNot on filedocumented in this encounterPro[facility] SystemInstructionsNot on filedocumented in this [facility] InstructionsNot on filedocumented in this [facility] Summary Purpose Family History No [...] section and content) DATE CREATED AUTHOR 07/08/2018 [facility] DATE CREATED AUTHOR AUTHOR'S ORGANIZ ATION 09/20/2019 [facility] DATE CREATED AUTHOR AUTHOR'S ORGANIZ ATION 12/18/2019 [facility] DATE CREATED AUTHOR AUTHOR'S ORGANIZ ATION 04/03/2024 [facility] DATE CREATED AUTHOR AUTHOR'S ORGANIZ ATION 06/01/[address] [facility] DATE CREATED AUTHOR AUTHOR'S ORGANIZ ATION 06/06/2024 [facility] DATE CREATED AUTHOR AUTHOR'S ORGANIZ ATION 06/11/2024 [facility] EPIC Reason for Visit (unrecogniz ed section and content) Reason Comments Outpatient Infusion [facility] Specialty Diagnoses / Procedures Referred By Theodore kohli Referred To Contact Gastroenterology Diagnoses Crohn's disease of both small and large intestine with unspecified complications Renflexis 400mg q8 weeks, 7 visits, 02.02.23 - 24, HK/CF, Crohn's Procedures INJECTION, INFLIXIMAB-AXXQ, BIOSIMILAR, ([facility]), 10 MG INFUSION Prema Abraham MD [address] [place] [address] [facility] [address] [address] Referral ID Status Reason Start Date Expiration Date V isits Requested Visits Authorized [id number] Authorized 02/02/2023 02/02/2024 7 7 Reason Comments Outpatient Infusion [facility] Reason Comments Routine Visit Reason Comments add on NST for [facility] Specialty Diagnoses / Procedures Referred By Contac t Referred To Contact Maternal and Medicine Diagnoses growth restriction antepartum Procedures nonstress test - Maternal Medicine Devyn Roman MD [address] [facility] [address], [address] [place] [address] Phone: tel: fax: Maternal- Medicine at [facility] [address] [place] [address] Phone: tel: fax: Referral ID Status Reason Start Date Expiration Date V isits Requested Visits Authorized [id number] Pending Review 05/15/2024 05/15/2025 1 1 Reason Comments Outpatient Infusion [facility] Specialty Diagnoses / Procedures Referred By Contac t Referred To Contact Gastroenterology Diagnoses Crohn's disease of both small and large intestine with unspecified complications Remicade 5mg/kg every 56 days ( 400 mg) Auth'd from 10/25/2023-10/23/2024 for 7 Visits, HK/CF, Crohn's Procedures [place] INFLIXIMAB INJECTION INFUSION Prema Abraham MD [address] [place] [address] Phone: tel: fax: [facility] [address] [address] Phone: tel: fax: Referral ID Status Reason Start Date Expiration Date V isits Requested Visits Authorized [id number] Authorized 12/20/2023 12/19/2024 7 7 Care Teams (unrecognized sec tion and content) Outreach Director Relationship Specialty Start Date End Date Prema Abraham MD [address] [place] [address] PCP - General Family Medicine 12/17/19 Outreach Director Relationship Specialty [place] [address] [place] [address] [phone] PCP - General Family Medicine 10/08/23 Outreach Director Relationship Specialty [place] [address] [place] [phone] PCP - General Family Medicine 10/08/23 Outreach Director Relationship Specialty Start [place] [address] [place] [address] [phone] PCP - General Family Medicine 02/29/24 Outreach Director Relationship Specialty Start Date End Date Prema Abraham MD [address] [place] [address] [phone] PCP - General Family Medicine 02/29/24 Outreach Director Relationship Specialty Start [place] [address] [place] [address] [phone] PCP - General Family Medicine 02/29/24 Outreach Director Relationship Specialty Start Date End Date Prema Abraham MD [address] [place] [address] [phone] PCP - General Family Medicine 02/29/24 FOR [...] BE BASED ON THE PRIMARY CLINICAL RECORDS. [facility]. provides no warranty or guarantee of the accuracy or completeness of information in this document.
--- NOTE | 2024-06-11 16:54 | US_ITS ---
[address] [address] Patient Name: ZAINAB SAAVEDRA MRN: [id number] date: 1995 Sex: F Assigned Patient Location: [facility] Current Patient Location: Accession/Order Number: [id number] Exam Date: 06/11/2024 17:05 Report Date: 06/12/2024 08:24 At the request of: SHERRY REYNA Procedure: US OB BPP w non-stress EXAMINATION: US OB BPP w non-stress HISTORY: CHRON'S DISEASE WITH COMPLICATION K50.919 COMPARISON: No relevant comparison available. TECHNIQUE: Ultrasound biophysical profile was performed in the radiology department. non-reactive stress testing was performed by nursing staff in the birthing center. FINDINGS: BREATHING MOVEMENTS: 2 GROSS BODY MOVEMENTS: 2 TONE: 2 QUALITATIVE AMNIOTIC FLUID VOLUME: 2 PRESENTATION: TRANSVERSE HEART RATE: 137.76 bpm AMNIOTIC FLUID VOLUME: 15.9 cm GESTATIONAL AGE: 36 weeks 0 days US/US OB BPP w non-stress IMPRESSION: Total biophysical profile score: 8 Electronically authenticated by: ALLISON TOWNSEND Date: 06/12/2024 08:24
[2024-06-11 17:22] VITALS: BP 113/73; PULSE 123
== END 2024-06-11 17:45 | disposition home or self-care (01) ==
LOC: US 07:38 → FBC 16:50
PROVIDERS: PCP Family Medicine; Visit Provider Obstetrics & Gynecology
DX: O99.613 Diseases of the digestive system complicating pregnancy, third trimester (principal); Z3A.35 35 weeks gestation of pregnancy; K50.919 Crohn's disease, unspecified, with unspecified complications
CPT/HCPCS: 76818

== ENCOUNTER 2024-06-14 06:40 | Outpatient (OUT) | payer MEDICAID, SELFPAY ==
--- OUTSIDE RECORDS SUMMARY | 2024-06-14 06:43 | XMS_ITS | CCD ---
Author Organization [facility] Inform ion Partnership [facility] Care Team Providers Care 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 Feeder Name Role Phone Hunter Trang Cornelius Unavailable Unavailable Prema Abraham Unavailable Unavaila PREMA Mahan Admitting Unavailable PREMA ABRAHAM Attending Unavailable PREMA ABRAHAM Primary Care Unavailable ALLISON TOWNSEND V Consulting Unavailable PREMA ABRAHAM Consulting Unavailable Prema Abarham MD Primary Care Provider [phone] Prema Abraham MD Primary Care Provider [phone] PREMA ABRAHAM Primary Care Unavailable SHERRY HORAN R Referring Unavailable PREMA ABRAHAM Referring Unavailable PREMA ABRAHAM Primary Care Unavailable Unavailable Primary Care Provider UnavailPrema Sheriff MD Primary Care Provider [phone] PREMA ABRAHAM Referring Unavailable PREMA ABRAHAM Primary Care Unavailable SURESH DIAZ Referring Unavailable PREMA ABRAHAM Referring Unavailable PREMA ABRAHAM Primary Care Unavailable SHERRY HORAN Attending Unavailable AUNG, SHERRY Attending Unavailable JULIANASAYRA BAKER Attending Unavailable AUNG, SHERRY Attending Unavailable JULIANA, SAYRA Attending Unavailable AUNG, SHERRY Attending Unavailable AUNG, SHERRY Attending Unavailable AUNG, SHERRY Attending Unavailable PREMA ABRAHAM Referring Unavailable PREMA ABRAHAM Primary Care Unavailable SURESH DIAZ Attending Unavailable PREMA ABRAHAM Referring Unavailable PREMA ABRAHAM Primary Care Unavailable PREMA ABRAHAM Referring Unavailable SHERRY HORAN R Referring Unavailable DEVYN ROMAN Attending Unavailable JANNA MACDONALD Referring Unavailab le SURESH DIAZ Attending Unavailable PREMA ABRAHAM Primary Care Unavailable YADIRA CHAU Attending Unavaila DEVYN Veras Referring Unavailable ABRAHAM, PREMA E Primary Care Unavailable YADIRA CHAU Ruben Referring Unavaila ble ABRAHAM, PREMA E Primary Care Unavailable AUNG, SHERRY R Referring Unavailable ABRAHAM, PREMA E Primary Care Unavailable DEVYN ROMAN Attending Unavailable ANGEL KAUFMAN Referring Unavailable ABRAHAM, PREMA E Primary Care [...] 10/08/2023 Active cholecalciferol 0.025 mg chewable tablet (19 sources) Vitamin D cholecalciferol, vitamin D3, 25 mcg (1,000 unit) tablet,chewable Chew and swallow daily. Active folic acid 1 mg oral tablet (4 sources) Start: 04-01-2024 folic acid (FOLVITE) 1 [...] 10 tablet 0 10/08/2023 Active Vit-Fe Fumarate-FA ([employer] VITAMINS PO) (12 sources) Start: 11-16-2023 take 1 dose by mouth once daily Vit-Fe Fumarate-FA ([employer] VITAMINS PO) 1 each Daily 11/16/2023 Active vit37/iron/folic acid (PRENATA ORAL) (8 sources) vit37/iron/folic acid (PRENATA ORAL) Take by mouth daily. Active vit37/i diana/folic acid (PRENATA ORAL) Take by mouth daily. 0 Active pyridoxine hydrochloride 25 mg oral tablet (4 sources) Start: 04-03-2024 vitamin B-6 25 MG tablet Take 1 tablet (25 mg total) by mouth. 04/03/2024 Active tiZANidine 4 mg oral tablet (3 sources) Central alpha-2 Adrenergic Agonist Start: 08-17-2021 tiZANidine (ZANAFLEX ) 4 mg tablet Take 4 mg by mouth as needed in the morning and 4 mg as needed in the evening. 0 08/17/2021 Active valACYclovir 1000 mg oral tablet (3 sources) Herpesvirus Nucleoside Analog DNA Polymerase Inhibitor, [...] delivery.. 50 tablet 1 06/10/2024 06/20/2024 Active take 1 tablet by randall th in the morning, then take 1 tablet by mouth at bedtime valACYclovir (VALTREX) 500 mg tablet Erik e 1 tablet (500 mg total) by mouth in the morning and 1 tablet (500 mg total) before bedtime. 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] Onset: 12-03-2019 12-03-2019 Chronic Menstrual disorders (1 source) Irregular menstruation, unspecified; Translations: [Irregular menstruation, unspecified] Onset: 12-11-2023 Chronic Nutritional deficiencies (9 sources) Deficiency of macronutrients; Translations: [Unspecified severe protein-calorie malnutrition] Onset: 12-03-2019 Resolved: 04-14-2020 04-14-2020 Chronic Other complications of ; puerperium affecting management of mother (2 sources) 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 05-17-2024 Episodic Other complications of (6 sources) growth restriction; Translations: [Maternal care for other known or suspected poor growth, unspecified trimester, not applicable or unspecified] 05-15-2024 Episodic Other complications of (5 sources) Poor growth affecting management; Translations: [Maternal [...] Unclassified (1 source) Hx C/S Onset: 02-20-2024 Viral infection (2 sources) Herpes simplex; Translations: [Herpesviral infection, unspecified] 06-10-2024 Episodic Past or Other Problems Problem Classification Problem Date Documented Da te Episodic/Chronic Anal and rectal conditions (9 sources) Stricture of rectum; 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] Onset: 04-14-2020 04-14-2020 Episodic Influenza (1 source) Influenza due to other identified influenza virus with other respiratory manifestations; Translations: [Influenza due to other identified influenza virus with other respiratory manifestations] Onset: 10-08-2023 Episodic Mood disorders (8 sources) Mood disorders Onset: 03-04-2021 03-04-2021 Nutritional deficiencies (1 source) Deficiency of other specified B group vitamins; Translations: [Deficiency of other specified B group vitamins] Onset: 02-29-2024 Episodic Open wounds of head; neck; and trunk (8 sources) Finding of sacral region; Translations: [Unspecified open wound of lower back and pelvis without penetration into retroperitoneum, initial encounter] Onset: 10-30-2019 10-30-2019 Episodic Other complications of (1 source) Supervision of high risk , unspecified, unspecified trimester; Translations: [Supervision of high risk , unspecified, unspecified trimester] Onset: 02-20-2024 Episodic Other gastrointestinal disorders (8 sources) Abdominal wall fistula; 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] Onset: 10-23-2019 10-23-2019 Episodic Other skin disorders (1 source) Skin problem Onset: 10-08-2023 Episodic Ovarian cyst (8 sources) Cyst of right ovary; Translations: [Unspecified [...] UA Negative Negative - 1999(20) ++++ mg/dL [facility] Spec Grav, UA 1.02 1 - 1.03 [facility] Urobilinogen, UA 1.0 0.2 - 12 mg/dL [facility] Urinalysis macro (dipstick) panel (U)on 06-03-2024 Bilirubin, UA Negative Negative - 4(70) +++ mg/dL [facility] Blood, UA Negative Negative - 50 Kal/mcL [facility] Clarity, UA Clear [facility] Color, [...] Urobilinogen, UA 0.2 0.2 - 12 mg/dL [facility] Urinalysis macro (dipstick) panel (U)on 05-16-2024 Bilirubin, UA Negative Negative - 4(70) +++ mg/dL [facility] Blood, UA Positive Negative - 50 Kal/mcL [facility] Comment on above: trace-intact Clarity, UA [...] Center pH, UA 6 5 - 9 [facility] Protein, UA Negative Negative - 1999(20) ++++ mg/dL [facility] Spec Grav, UA 1.025 1 - 1.03 [facility] Urobilinogen, UA 0.2 0.2 - 12 mg/dL [facility] No Panel Informationon 05-15 Patient Name: Kishor Maldonado Patient : 1995 NST Objective Findings: Variability: Moderate Decelerations: None Accelerations: Yes Acoustic Stimulator: No Baseline: 130 BPM Uterine Irritability: Yes Contractions: Not present Comments: Uterine irritability noted, intercourse this morning. [facility] instructions/handout and labor precautions reviewed. NST Interpretation: Nonstress Test Interpretation: Reactive (Devyn Roman MD) NST performed by: Aislinn Richardson RN 05/15/2024 4:30 PM [employer] [facility] M. tuberculosis stim IFN-g p venkat (Bld)on 03-29-2024 Mitogen minus Nil Result 1.22 IU/mL Normal [facility] Comment on above: Performed By: #### C AGNES, 1989-11, HA1C, CBCA, 5196-1, 80356-9, 99464-4, 2132-9, 55967-3, 8014-3, 90986-2 #### [facility] ([id number]) [address] [place] [address], [address] [place] [address] Nil Result 0.02 IU/mL Normal [facility] Comment on above: Result Comment: NOTE Test Performed by: [facility] [address] [place] [address] Bag Patcher: Donnie Sanon Ph.D.; CLIA# [id number] Performed By: #### C AGNES, 1989-11, HA1C, CBCA, 5196-1, 66404-3, 99885-9, 2-9, 14435-0, 8014-3, 76621-2 #### [facility] ([id number]) [address] [facility], [address] [place] [address] QuantiFERON-Tb Gold Plus Result Negative Normal Negative [facility] Comment on above: Result Comment: NOTE [...] #### C AGNES, 1989-11, HA1C, CBCA, 5196-1, 45537-1, 38508-9, 2132-9, 39102-9, 8014-3, 48881-4 #### [facility] ([id number]) [address] [facility] [facility], [address] [place] [address] TB1 Ag minus Nil Result NEG 0.01 Normal [facility] Comment on above: Performed By: #### C AGNES, 1989-11, HA1C, CBCA, 5196-1, 47108-6, 54193-3, 2132-9, 63705-4, 8014-3, 37478-4 #### [facility] ([id number]) [address] [facility] [facility], [address] [place] [address] TB2 Ag minus Nil Result NEG 0.01 Normal [facility] Comment on above: Performed By: #### C AGNES, 1989-11, HA1C, CBCA, 5196-1, 17820-6, 49749-4, 2132-9, 92758-3, 8014-3, 83554-3 #### [facility] ([id number]) [address], [address] [place] [address] CBC AND AUTO DIFFon 12-11-19 24 ABSOLUTE BASOPHIL 0.0 X10E9/L Normal 0.0-0.2 [facility] Comment on above: Performed By: #### C AGNES, 1989-11, HA1C, CBCA, 5196-1, 69130-6, 63996-8, 2132-9, 88146-8, 8014-3, 43484-5 #### [facility] ([id number]) [address], [address] [place] [address] ABSOLUTE NEUTROPHIL 5.5 X10E9/L Normal 1.5-6.6 [facility] Comment on above: Performed By: #### C AGNES, 1989-11, HA1C, CBCA, 5196-1, 38749-6, 00718-6, 2-9, 01715-1, 8014-3, 32648-6 #### [facility] ([id number]) [address], [address] [place] [address] Basophils/100 WBC (Bld) 0.3 % Normal [facility] Comment on above: Performed By: #### C AGNES, 1989-11, HA1C, CBCA, 5196-1, 71460-8, 19170-0, 2131-9, 69897-4, 8014-3, 04962-1 #### [facility] ([id number]) [address], [address] [place] [address] Eosinophils (Bld) [#/Vol] 0.2 10*3/uL Normal 0.0-0.4 [facility] Comment on above: Performed By: #### C AGNES, 1989-11, HA1C, CBCA, 5196-1, 01629-3, 28557-7, 2131-9, 75347-8, 8014-3, 89405-6 #### [facility] ([id number]) [address], [address] [place] [address] Eosinophils/100 WBC (Bld) 2.6 % Normal [facility] Comment on above: Performed By: #### C AGNES, 1989-11, HA1C, CBCA, 5196-1, 35068-8, 42740-4, 2131-9, 11078-3, 8014-3, 42341-6 #### [facility] ([id number]) [address], [address] [place] [address] Erythrocyte distribution width (RBC) [Ratio] 13.3 % Normal 11.5-15.0 [facility] Comment on above: Performed By: #### C AGNES, 1989-11, HA1C, CBCA, 5196-1, 72625-1, 63339-5, 2132-9, 00263-3, 8014-3, 75579-4 #### [facility] ([id number]) [address], [address] [place] [address] Hematocrit (Bld) [Volume fraction] 40.5 % Normal 35-47 [facility] Comment on above: Performed By: #### C AGNES, 1989-11, HA1C, CBCA, 5196-1, 52854-9, 38192-4, 2131-9, 96141-1, 8014-3, 83893-7 #### [facility] ([id number]) [address] [facility], [address] [place] [address] Hemoglobin (Bld) [Mass/Vol] 14.2 g/dL Normal 11.7-15.5 [facility] Comment on above: Performed By: #### C AGNES, 1989-11, HA1C, CBCA, 5196-1, 71394-5, 77187-8, 2-9, 40586-8, 8014-3, 40737-0 #### [facility] ([id number]) [address], [address] [place] [address] Lymphocytes (Bld) [#/Vol] 1.3 10*3/uL Normal 1.0-3.5 [facility] Comment on above: Performed By: #### C AGNES, 1989-11, HA1C, CBCA, 5196-1, 34025-6, 06699-0, 2-9, 02388-9, 8014-3, 26119-9 #### [facility] ([id number]) [address], [address] [place] [address] Lymphocytes/100 WBC (Bld) 18.2 % Normal [facility] Comment on above: Performed By: #### Clyde ALARCON, 1989-11, HA1C, CBCA, 5196-1, 20669-2, 85873-7, 2132-9, 79809-7, 8014-3, 16853-6 #### [facility] ([id number]) [address], [address] [place] [address] MCH (RBC) [Entitic mass] 30.7 pg Normal 27-34 [facility] Comment on above: Performed By: #### C AGNES, 1989-11, HA1C, CBCA, 5196-1, 97269-1, 05636-3, 2-9, 10350-4, 8014-3, 01545-4 #### [facility] ([id number]) [address], [address] [place] [address] MCHC (RBC) [Mass/Vol] 35.2 g/dL Normal 32-36 [facility] Comment on above: Performed By: #### C AGNES, 1989-11, HA1C, CBCA, 5196-1, 04769-8, 42653-3, 2131-9, 38392-5, 8014-3, 44932-2 #### [facility] ([id number]) [address], [address] [place] [address] MCV (RBC) [Entitic vol] 87 fL Normal 80-100 [facility] Comment on above: Performed By: #### C AGNES, 1989-11, HA1C, CBCA, 5196-1, 43812-3, 47729-5, 2131-9, 29808-5, 8014-3, 96443-5 #### [facility] ([id number]) [address], [address] [place] [address] Monocytes (Bld) [#/Vol] 0.4 10*3/uL Normal 0-0.9 [facility] Comment on above: Performed By: #### C AGNES, 1989-11, HA1C, CBCA, 5196-1, 45687-2, 65722-5, 2-9, 41468-5, 8014-3, 34290-7 #### [facility] ([id number]) [address], [address] [place] [address] Monocytes/100 WBC (Bld) 5.1 % Normal [facility] Comment on above: Performed By: #### C AGNES, 1989-11, HA1C, CBCA, 5196-1, 80292-8, 61922-6, 2132-9, 28658-7, 8014-3, 10561-0 #### [facility] ([id number]) [address], [address] [place] [address] Neutrophils/100 WBC (Bld) 73.8 % Normal [facility] Comment on above: Performed By: #### C AGNES, 1989-11, HA1C, CBCA, 5196-1, 64480-5, 53992-0, 2132-9, 86746-9, 8014-3, 87667-6 #### [facility] ([id number]) [address], [address] [place] [address] Platelet mean volume (Bld) [Entitic vol] 9.1 fL Normal 7-12 [facility] Comment on above: Performed By: #### C AGNES, 1989-11, HA1C, CBCA, 5196-1, 96136-4, 35656-8, 2132-9, 95592-2, 8014-3, 23193-9 #### [facility] ([id number]) [address], [address] [place] [address] Platelets (Bld) [#/Vol] 254 10*3/uL Normal 150-450 [facility] Comment on above: Performed By: #### C AGNES, 1989-11, HA1C, CBCA, 5196-1, 39669-8, 05116-6, 2132-9, 28767-5, 8014-3, 93621-2 #### [facility] ([id number]) [address], [address] [place] [address] RBC COUNT 4.63 X10E12/L Normal 3.80-5.20 [facility] Comment on above: Performed By: #### C AGNES, 1989-11, HA1C, CBCA, 5196-1, 36028-4, 89644-1, 2132-9, 31031-3, 8014-3, 05190-8 #### [facility] ([id number]) [address], [address] [place] [address] WBC (Bld) [#/Vol] 7.4 10*3/uL Normal 4.0-11.0 [facility] Comment on above: Performed By: #### C AGNES, 1989-11, HA1C, CBCA, 5196-1, 71552-7, 78763-5, 2131-9, 61495-8, 8014-3, 83130-0 #### [facility] ([id number]) [address], [address] [place] [address] COMPREHENSIVE METABOLIC PANE Jesse 12-11-2023 Albumin [Mass/Vol] 4.3 g/dL Normal 3.2-5.3 [facility] Comment on above: Performed By: #### C AGNES, 1989-11, HA1C, CBCA, 5196-1, 03047-2, 60953-3, 2131-9, 17815-3, 8014-3, 47164-2 #### [facility] ([id number]) [address], [address] [place] [address] ALP [Catalytic activity/Vol] 48 U/L Normal 39-130 [facility] Comment on above: Performed By: #### C AGNES, 1989-11, HA1C, CBCA, 5196-1, 29062-3, 77268-4, 2131-9, 44941-8, 8014-3, 76830-2 #### [facility] ([id number]) [address], [address] [place] [address] ALT [Catalytic activity/Vol] 13 U/L Normal 0-31 [facility] Comment on above: Performed By: #### C AGNES, 1989-11, HA1C, CBCA, 5196-1, 45361-6, 34222-5, 2132-9, 07666-1, 8014-3, 39081-3 #### [facility] ([id number]) [address], [address] [place] [address] Anion gap [Moles/Vol] 10 mmol/L Normal 5-15 [facility] Comment on above: Performed By: #### C AGNES, 1989-11, HA1C, CBCA, 5196-1, 20767-4, 44766-4, 2-9, 56412-3, 8014-3, 69795-7 #### [facility] ([id number]) [address], [address] [place] [address] AST [Catalytic activity/Vol] 17 U/L Normal 0-41 [facility] Comment on above: Performed By: #### C AGNES, 1989-11, HA1C, CBCA, 5196-1, 51401-8, 53603-6, 2132-9, 42950-4, 8014-3, 93048-1 #### [facility] ([id number]) [address], [address] [place] [address] Bilirubin [Mass/Vol] 0.7 mg/dL Normal 0.3-1.2 [facility] Comment on above: Performed By: #### C AGNES, 1989-11, HA1C, CBCA, 5196-1, 68175-9, 90731-6, 2132-9, 21841-9, 8014-3, 14412-7 #### [facility] ([id number]) [address], [address] [place] [address] Calcium [Mass/Vol] 9.5 mg/dL Normal 8.5-10.5 [facility] Comment on above: Performed By: #### C AGNES, 1989-11, HA1C, CBCA, 5196-1, 52317-5, 10731-7, 2131-9, 12682-5, 8014-3, 14396-7 #### [facility] ([id number]) [address] [facility], [address] [place] [address] Chloride [Moles/Vol] 104 mmol/L Normal 98-109 [facility] Comment on above: Performed By: #### C AGNES, 1989-11, HA1C, CBCA, 5196-1, 29674-5, 69432-6, 2131-9, 87232-9, 8014-3, 86922-6 #### [facility] ([id number]) [address] [facility], [address] [place] [address] CO2 [Moles/Vol] 23 mmol/L Normal 22-32 [facility] Comment on above: Performed By: #### C AGNES, 1989-11, HA1C, CBCA, 5196-1, 49079-1, 37596-3, 2131-9, 58868-3, 8014-3, 31575-5 #### [facility] ([id number]) [address] [facility], [address] [place] [address] Creatinine [Mass/Vol] 0.49 mg/dL Normal 0.40-1.00 [facility] Comment on above: Result Comment: METH OD TRACEABLE TO IDMS STANDARD Performed By: #### C AGNES, 1989-11, HA1C, CBCA, 5196-1, 84033-9, 52606-6, 2131-9, 98365-5, 8014-3, 80596-2 #### [facility] ([id number]) [address], [address] [place] [address] eGFR (CKD-EPI) NON-RACE DEPENDENT >90 Normal >59 [facility] Comment on above: Result Comment: Reported eGFR is based on the CKD-EPI 2020 equation that does not use a race coefficient. Performed By: #### C AGNES, 1989-11, HA1C, CBCA, 5196-1, 05605-3, 45376-7, 2131-9, 55189-7, 8014-3, 39093-2 #### [facility] ([id number]) [address], [address] [place] [address] Glucose [Mass/Vol] 92 mg/dL Normal 65-99 [facility] Comment on above: Performed By: #### Clyde ALARCON, 1989-11, HA1C, CBCA, 5196-1, 84756-8, 71858-6, 2131-9, 78130-0, 8014-3, 01169-5 #### [facility] ([id number]) [address] [facility], [address] [place] [address] Potassium [Moles/Vol] 4.1 mmol/L Normal 3.5-5.0 [facility] Comment on above: Performed By: #### Clyde ALARCON, 1989-11, HA1C, CBCA, 5196-1, 93774-0, 39259-4, 2131-9, 10889-0, 8014-3, 62663-6 #### [facility] ([id number]) [address] [facility], [address] [place] [address] Protein [Mass/Vol] 7.5 g/dL Normal 6.0-8.0 [facility] Comment on above: Performed By: #### Clyde ALARCON, 1989-11, HA1C, CBCA, 5196-1, 58505-8, 62783-1, 2131-9, 87771-8, 8014-3, 07063-0 #### [facility] ([id number]) [address], [address] [place] [address] Sodium [Moles/Vol] 137 mmol/L Normal 134-146 [facility] Comment on above: Performed By: #### Clyde ALARCON, 1989-11, HA1C, CBCA, 5196-1, 73634-1, 55383-1, 2131-9, 58016-6, 8014-3, 92191-3 #### [facility] ([id number]) [address] [facility], [address] [place] [address] Urea nitrogen [Mass/Vol] 6 mg/dL Normal 5-23 [facility] Comment on above: Performed By: #### C AGNES, 1989-11, HA1C, CBCA, 5196-1, 62015-1, 36006-6, 2132-9, 25090-8, 8014-3, 77125-6 #### [facility] ([id number]) [address] [facility], [address] [place] [address] CRP [Mass/Vol]on 12-11-2023 C REACTIVE PROTEIN 0.5 mg/dL Normal 0.000-0.744 [facility] Comment on above: Performed By: #### C AGNES, 1989-11, HA1C, CBCA, 5196-1, 48694-1, 11376-6, 2131-9, 42399-2, 8014-3, 51533-5 #### [facility] ([id number]) [address] [facility], [address] [place] [address] HBV surface Ag IA Qlon 12-10 HEPATITIS B SURF AG Negative Normal NEG [facility] Comment on above: Performed By: #### C AGNES, 1989-11, HA1C, CBCA, 5196-1, 92468-9, 71139-9, 2132-9, 79854-5, 8014-3, 54985-2 #### [facility] ([id number]) [address] [facility], [address] [place] [address] HCV Ab IA Qlon 12-11-2023 ANTI HCV W/PCR REFLX Non-Reactive Normal NRCT Pr [facility] Comment on above: Result Comment: If recent infection suspected, recommend repeat testing (>2 months). Fcroda-qd-ozigxm ratio is <0.80. Performed By: #### C AGNES, 1989-11, HA1C, CBCA, 5196-1, 84931-8, 11996-5, 2132-9, 30108-0, 8014-3, 94258-3 #### [facility] ([id number]) [address] [place] [address], [address] [place] [address] HGB A1C (GLYCO-HGB)on 2023 Glucose [Mass/Vol] 103 mg/dL Normal [facility] Comment on above: Performed By: #### C AGNES, 1989-11, HA1C, CBCA, 5196-1, 22051-7, 14703-0, 9, 90706-2, 8014-3, 30046-7 #### [facility] ([id number]) [address] [place] [address], [address] [place] [address] HbA1c (Bld) [Mass fraction] 5.2 % Normal 4.4-5.6 [facility] Comment on above: Result Comment: NOTE ADA Guidelines Result HgbA1c Normal : less than 5.7 % Prediabetes : 5.7 % to 6.4 % Diabetes : > 6.4 % Use with caution in patients with abnormal hemoglobin variants as the half-life of red blood cells and in vivo glycation rates are affected. Performed By: #### C AGNES, 1989-11, HA1C, CBCA, 5196-1, 50997-0, 08667-7, 2131-9, 75952-0, 8014-3, 08450-6 #### [facility] ([id number]) [address] [place] [address], [address] [place] [address] HIV 1+2 Ab+HIV1 p24 Ag IA Ql on 12-11-2023 HIV 1 and 2 Ab/Ag Screen Non-Reactive Normal NRCT [facility] Comment on above: Result Comment: This [...] #### Clyde ALARCON, 1989-11, HA1C, CBCA, 5196-1, 67740-7, 17627-0, 2132-9, 33874-3, 8014-3, 75065-7 #### [facility] ([id number]) [address] [place] [address], [address] [place] [place] [address] Rubella virus IgG Qn (S)on 0 12-11-2023 RUBELLA IgG 30 IU/mL Normal [facility] Comment on above: Result Comment: Interpretation-------- <8 NEGATIVE-considered Not Immune 8-9 EQUIVOCAL-consider retesting with new specimen >9 POSITIVE-considered Immune Performed By: #### C AGNES, 1989-11, HA1C, CBCA, 5196-1, 40862-1, 97921-5, 2131-9, 17155-7, 8014-3, 64111-3 #### [facility] ([id number]) [address] [place] [address], [address] [place] [address] T. pallidum IgG+IgM IA Ql (S )on 12-11-2023 Syphilis Total <0.2 Normal 0.0-0.8 [facility] Comment on above: Result Comment: NON REACTIVE No serologic evidence of infection to Treponema pallidum (syphilis). Repeat testing may be considered in patients with suspected acute or primary syphilis in 2 to 4 weeks. Performed By: #### Clyde ALARCON, 1989-11, HA1C, CBCA, 5196-1, 11583-8, 58000-7, 2132-9, 81558-6, 8014-3, 21488-3 #### [facility] ([id number]) [address] [place] [address], [address] [place] [address] VITAMIN B12on 12-11-2023 Cobalamin (Vitamin B12) [Mass/Vol] 142 pg/mL Low 180-914 [facility] Comment on above: Performed By: #### C , 1989-11, HA1C, CBCA, 5196-1, 66619-0, 68542-4, 2-9, 35531-5, 8014-3, 63700-6 #### [facility] ([id number]) [address] [facility], [address] [place] [address] Vitamin D+Metabolites [Mass/ Vol]on 12-11-2023 VITAMIN D 25 HYD TOT 21.8 ng/mL Low 30-100 [facility] Comment on above: Result Comment: Vitamin D status 25 [place] Vitamin D Deficiency <20 ng/mL Insufficiency 20-29 ng/mL Sufficiency 30-100 ng/mL Toxicity >100 ng/mL NOTE: A pediatric reference range has not been established by the accounting practice manager of this kit. The [place] [employer] recommends a Vitamin D level of = or >20ng/mL in infants and children. Performed By: #### C , 1989-11, HA1C, CBCA, 5196-1, 70808-2, 76469-4, 2131-9, 50265-6, 8014-3, 65146-7 #### [facility] ([id number]) [address] [facility], [address] [place] [address] SARS/FLU A+B/RSV by NAAT/Mol ecularon 10-08-2023 SARS/FLU [...] operators who are performing tests using either GeneHallspot DX or GeneLocately systems and is limited to laboratories that [...] repeat. Fact Sheet for Healthcare Providers: https://www.fda.gov/media /294208/download Fact Sheet for Patients: https://www.fda.gov/media /950785/download Normal [facility] Comment on above: Performed By: #### C OVFLR #### [facility] ([id number]) [address] [place] [address], [place] [address] Consultation Noteon 12-18-19 Consultation Note [id number]:12 7 Normal [facility] Ambulatory Patient Education on 06-04-2018 Ambulatory Patient Education Patient Education MaterialsName: Zainab Maldonado Current Date: 06/04/2018 11:43:12 [place] 1995 following sheet(s) are the Patient Education Leaflets for Zainab Maldonado [facility] Gastroenterology Office/Clin ic Noteon 06-04-2018 Gastroenterology Office/Clinic [...] led to her being referred to Dr. Boewrs at [facility] in [place]. She states that she had a colonoscopy [...] Endoscopy history: Colonoscopy done on 04/17/2018 at [facility] Constitutional: 45 pound weight loss since September [...] she was placed on steroids at the [facility] GI physician. She states that she [...] _Trang Harrison MD 06/05/18 15:58 EST Normal [facility] Vital Signs Date Time Vital Sign Value Performing Clinician Facility 06-11-2024 10:48-0500 Body height 155 cm Devyn Roman MD Work Phone: [facility] [address] [facility] 06-11-2024 10:48-0500 Body mass index (BMI) [Ratio] 29.98 kg/m2 Devyn Roman MD Work Phone: [facility] 06-11-2024 10:48-0500 Body weight 72.03 kg Devyn Roman MD Work Phone: [facility] 06-11-2024 10:48-0500 Diastolic blood pressure 83 mm[Hg] Devyn Roman MD Work Phone: [facility] 06-11-2024 10:48-0500 Heart rate 105 /min Devyn Roman MD Work Phone: [facility] 06-11-2024 10:48-0500 Systolic blood pressure 118 mm[Hg] Devyn Roman MD Work Phone: [facility] 06-10-2024 08:43-0500 Body weight 72.12 kg Sherry Aung DO Work Phone: [facility] 06-10-2024 08:43-0500 Diastolic blood pressure 70 mm[Hg] Sherry Aung DO Work Phone: [facility] 06-10-2024 08:43-0500 Systolic blood pressure 110 mm[Hg] Sherry Aung DO Work Phone: [facility] 06-05-2024 09:00-0500 Body mass index (BMI) [Ratio] 26.55 kg/m2 [facility] 1 [facility] 06-05-2024 09:00-0500 Body temperature 98.4 [degF] [facility] 1 [facility] 06-05-2024 09:00-0500 Body weight 63.78 kg [facility]pl[facility] 1 [facility] 06-05-2024 09:00-0500 Diastolic blood pressure 73 mm[Hg] [facility] 1 [facility] 06-05-2024 09:00-0500 Heart rate 99 /min [facility] 1 [facility] 06-05-2024 09:00-0500 Respiratory rate 16 /min [facility] 1 [facility] 06-05-2024 09:00-0500 Systolic blood pressure 114 mm[Hg] [facility]pl[facility] 1 [facility] 06-03-2024 08:25-0500 Body weight 70.76 kg Sherry Aung DO Work Phone: [facility] 06-03-2024 08:25-0500 Diastolic blood pressure 68 mm[Hg] Sherry Aung DO Work Phone: [facility] 06-03-2024 08:25-0500 Systolic blood pressure 114 mm[Hg] Sherry Aung DO Work Phone: [facility] 05-16-2024 09:01-0400 Body weight 70.67 kg Sherry Aung DO Work Phone: [facility] 05-16-2024 09:01-0400 Diastolic blood pressure 64 mm[Hg] Sherry Aung DO Work Phone: [facility] 05-16-2024 09:01-0400 Systolic blood pressure 120 mm[Hg] Sherry Aung DO Work Phone: [facility] 05-15-2024 16:05-0400 Diastolic blood pressure 72 mm[Hg] [address] 05-15-2024 16:05-0400 Heart rate 93 /min [address] 05-15-2024 16:05-0400 Systolic blood pressure 110 mm[Hg] [address] 05-02-2024 09:35-0400 Body weight 68.58 kg Sayra BROWN Work Phone: [facility] 05-02-2024 09:35-0400 Diastolic blood pressure 68 mm[Hg] Sayra BROWN Work Phone: [facility] 05-02-2024 09:35-0400 Systolic blood pressure 110 mm[Hg] Sayra BROWN Work Phone: [facility] 10-25-2023 11:28-0400 Body temperature 99.1 [degF] Wl 2 [facility] 10-25-2023 11:28-0400 Diastolic blood pressure 62 mm[Hg] Wlc 2 [facility] 10-25-2023 11:28-0400 Heart rate 74 /min [facility] 2 [facility] 10-25-2023 11:28-0400 Respiratory rate 18 /min [facility] 2 [facility] 10-25-2023 11:28-0400 Systolic blood pressure 97 mm[Hg] [facility] 2 [facility] 10-25-2023 08:54-0400 Body mass index (BMI) [Ratio] 25.32 kg/m2 [facility] 2 [facility] 10-25-2023 08:54-0400 Body weight 60.78 kg [facility] 2 [facility] 08-30-2023 11:44-0500 Body temperature 98.2 [degF] [facility] 1 [facility] 08-30-2023 11:44-0500 Diastolic blood pressure 68 mm[Hg] [facility] 1 [facility] 08-30-2023 11:44-0500 Heart rate 73 /min [facility] 1 [facility] 08-30-2023 11:44-0500 SaO2% (BldA) [Mass fraction] 98 % [facility] 1 [facility] 08-30-2023 11:44-0500 Systolic blood pressure 99 mm[Hg] [facility] 1 [facility] 08-30-2023 09:00-0500 Body mass index (BMI) [Ratio] 26.38 kg/m2 [facility] 1 [facility] 08-30-2023 09:00-0500 Body weight 63.32 kg [facility] 1 [facility] Encounters Encounter Date Encounter Type Care Provider Facility Start: 06-11-2024 End: 06-11-2024 Office outpatient visit 15 minutes Devyn Roman MD Work Phone: [facility] Comment on above: Crohn's disease of b oth small and large intestine with intestinal obstruction (CMS-HCC) (Primary Dx) Start: 06-11-2024 End: 06-11-2024 ambulatory SHERRY FIGUEREDOZIO [facility] Start: 06-10-2024 End: 06-10-2024 Bamboo flowsheet Sherry Horan DO Work Phone: [facility] Start: 06-10-2024 End: 06-10-2024 Bamboo flowsheet Sherry Aung DO Work Phone: [facility] Start: 06-10-2024 End: 06-10-2024 Office outpatient visit 15 minutes Sherry Aung DO Work Phone: [facility] Comment on above: Third trimester preg delfina; 35 weeks gestation of ; Herpes Start: 06-10-2024 End: 06-10-2024 ambulatory SHERRY AUNG Not Available Start: 06-05-2024 End: 06-05-2024 ambulatory Pplc [facility] Infusion Chair 1 [facility] Comment on above: Crohn's disease of s mall and large intestines with complication (CMS-HCC) (Primary Dx) Start: 06-03-2024 End: 06-03-2024 Bamboo flowsheet Sherry Aung DO Work Phone: [facility] Start: 06-03-2024 End: 06-03-2024 Bamboo flowsheet Sherry Aung DO Work Phone: [facility] Start: 06-03-2024 End: 06-03-2024 Office outpatient visit 15 minutes Sherry Aung DO Work Phone: [facility] Comment on above: Third trimester preg delfina; 34 weeks gestation of Start: 06-03-2024 End: 06-03-2024 ambulatory SHERRY AUNG Not Available Start: 05-30-2024 End: 05-30-2024 ambulatory SHERRY R AUNG [facility] Start: 05-17-2024 End: 05-17-2024 Orders Only Akila Snider RN [facility] Comment on above: growth restric tion [...] 05-15-2024 End: 05-15-2024 Orders Only Jenni Owen [facility] Comment on above: growth restric tion antepartum (Primary Dx) Crohn's disease of b oth small and large intestine with intestinal obstruction (CMS-HCC) (Primary Dx); growth restriction antepartum Start: 05-02-2024 End: 05-02-2024 Bamboo flowsheet Sayra BROWN Work Phone: [facility] Start: 05-02-2024 End: 05-02-2024 Bamboo flowsheet Sayra BROWN Work Phone: [facility] Start: 05-02-2024 End: 05-02-2024 Office outpatient visit 15 minutes Sayra BROWN Work Phone: [facility] Comment on above: 30 weeks gestation o f (Primary Dx); Third trimester Start: 05-02-2024 End: 05-02-2024 ambulatory SAYRA ANDREWS Not Available Start: 04-30-2024 End: 04-30-2024 [facility] Start: 04-17-2024 End: 04-17-2024 ambulatory SHERRY R [facility] Start: 04-10-2024 End: 04-10-2024 ambulatory PREMA ABRAHAM [facility] Start: 04-04-2024 End: 04-04-2024 ambulatory SHERRY AUNG Not Available Start: 04-02-2024 End: 04-02-2024 [facility] Start: 03-29-2024 End: 03-29-2024 ambulatory [facility] Peter [facility] Start: 03-28-2024 End: 03-28-2024 ambulatory DEVYN NICOLASHID [facility] Start: 03-28-2024 End: 03-28-2024 ambulatory SHERRY R [facility] Start: 03-19-2024 End: 03-19-2024 ambulatory YADIRA CHAU [facility] Start: 03-05-2024 End: 03-05-2024 ambulatory SAYRA ANDREWS Not Available Start: 02-29-2024 End: 02-29-2024 ambulatory SURESH Noa [facility] Start: 02-20-2024 End: 02-20-2024 ambulatory SHERRY R [facility] Start: 02-14-2024 End: 02-14-2024 ambulatory [facility] Start: 02-06-2024 End: 02-06-2024 ambulatory SHERRY AUNG Not Available Start: 01-09-2024 End: 01-09-2024 ambulatory SHERRY AUNG Not Available Start: 12-20-2023 End: 12-20-2023 ambulatory [facility] Peter [facility] Start: 12-11-2023 End: 12-11-2023 ambulatory SHERRY R [facility] Start: 12-08-2023 End: 12-08-2023 ambulatory SHERRY AUNG Not Available Start: 11-30-2023 End: 11-30-2023 ambulatory SURESH L[facility] Start: 10-25-2023 End: 10-25-2023 ambulatory [facility] Infusion Chair 2 [facility] Comment on above: Crohn's disease of s mall and large intestines with complication ([facility]-HCC) (Primary Dx) Start: 10-24-2023 Telephone encounter Amanda Khan [facility] Start: 10-08-2023 End: 10-08-2023 Emergency department patient visit PREMA ABRAHAM [facility] Start: 08-30-2023 End: 08-30-2023 ambulatory [facility] Infusion Chair 1 [facility] Comment on above: Crohn's disease of s mall and large intestines with complication (CMS-HCC) (Primary Dx) Start: 09-17-2019 End: 09-18-2019 Patient encounter procedure PREMA ABRAHAM Facility: Start: 06-04-2018 End: 06-05-2018 Patient encounter procedure Trang Harrison Facility:[facility] Procedures Date Procedure Procedure Detail [...] in Cervix by Cyto stain Jenni Owen [facility] Start: 11-30-2023 Follow-up visit Follow-up SURESH DIAZ [...] malign ant neoplasm of cervix Pap Smear [facility] Start: 06-11-2025 Adult BMI Screening Adult BMI Screen ing [facility] Start: 06-11-2025 Tobacco Screening Tobacco Screening [facility] Start: 06-05-2025 Adult BMI Screening Adult BMI Screen ing [facility] Start: 05-17-2025 End: 05-17-2025 US MFM with or without consult US MFM with or without consult Imaging Routine growth restriction antepartum Crohn's disease of both small and large intestine with intestinal obstruction (CMS-HCC) 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 Expected: 05/17/2025 (Approximate), Expires: 05/17/2025 [employer] Work Phone: Comment on above: Expected: 05/17/2025 (Approximate), Expires: 05/17/2025 Start: 05-15-2025 Tobacco Screening Tobacco Screening [facility] Start: 04-17-2025 Adult BMI Screening Adult BMI Screen ing [facility] Start: 11-11-2024 Screening for malign ant neoplasm of cervix Pap Smear [facility] Start: 10-24-2024 Adult BMI Screening Adult BMI Screen ing [facility] Start: 10-07-2024 Tobacco Screening Tobacco Screening [facility] Start: 08-30-2024 Adult BMI Screening Adult BMI Screen ing [facility] Start: 08-12-2024 End: 08-12-2024 Patient encounter procedure 08/12/2024 8:30 AM EST Office Visit [facility] [address] [facility] [phone] Suresh Diaz MD [address] [address] [facility] Start: 08-01-2024 End: 08-01-2024 ambulatory 08/01/2024 9:30 AM EST Infusion [facility] [address] [facility] [facility] [address] [place] [address] [facility] Start: 06-17-2024 End: 06-17-2024 Patient encounter procedure 06/17/2024 1:50 PM EST Routine [facility] [address] [place] [address] Sayra Andrews PA [address] [place] [address] [facility] Start: 06-11-2024 End: 06-11-2024 Patient encounter procedure [facility] Start: 06-10-2024 End: 06-10-2025 Strep B DNA probe, amplification Strep B DNA probe, amplification Lab Routine Third trimester Expected: 06/10/2024 (Approximate), Expires: 06/10/2025 [facility] Work Phone: Comment on above: Expected: 06/10/2024 (Approximate), Expires: 06/10/2025 Start: 06-10-2024 End: 06-10-2024 Patient encounter procedure [facility] Comment on above: Arrived Start: 06-05-2024 End: 06-05-2024 ambulatory 06/05/2024 9:00 AM EST Infusion [facility] [address] [phone] [facility] Start: 06-03-2024 End: 06-03-2024 Patient encounter procedure [facility] Comment on above: Arrived Start: 05-30-2024 End: 05-30-2024 Patient encounter procedure 05/30/2024 3:00 PM EDT Appointment [facility] [address] [place] [phone] [facility] Start: 05-16-2024 End: 05-16-2024 Patient encounter procedure [facility] Comment on above: Arrived Start: 05-10-2024 Tobacco Screening Tobacco Screening [facility] Start: 05-02-2024 End: 05-02-2024 Patient encounter procedure 05/02/2024 9:30 AM EDT Routine [facility] [address] [place] [phone] Sayra Andrews PA [address] [place] [address] Arrived [facility] Comment on above: Arrived Start: 03-31-2024 Influenza vaccination Influenza Vacc ine [facility] Start: 12-20-2023 End: 12-20-2023 ambulatory 12/20/2023 9:00 AM EDT Infusion [facility] [address] [facility] [place] [phone] [facility] Start: 11-30-2023 End: 11-30-2023 Patient encounter procedure 11/30/2023 9:30 AM EDT Office Visit [facility] [address] [facility] [place] [phone] Suresh Diaz MD [address] [facility] [address] [place] [address] [facility] Start: 10-25-2023 End: 10-25-2023 ambulatory 10/25/2023 9:00 AM EDT Infusion [facility] [address] 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 2022 Medicaid [id number] 1995 Unknown [id number] 2.16.8 40.1.797921.3.579.2.196 1993 Unknown [id number] 2.16.84 0.1.475204.3.579.2.593 1993 Unknown [id number] 2.16.8 40.1.969986.3.579.2.1286 1993 Unknown [id number] 2.16.8 40.1.856314.3.579.2.1286 1993 Unknown [id number] 2.16.8 40.1.547811.3.579.2.1286 1993 Unknown [id number] 2.16.8 40.1.319577.3.579.2.1286 1993 Unknown [id number] 2.16.8 40.1.646645.3.579.2.1286 1993 Unknown [id number] 2.16.8 40.1.732394.3.579.2.1286 1993 Unknown [id number] 2.16.84 0.1.615013.3.579.2.1259 1993 Unknown [id number] 2.16.84 0.1.607305.3.579.2.1259 1993 Unknown [id number] 2.16.84 0.1.152756.3.579.2.1259 1993 Unknown [id number] 2.16.84 0.1.613620.3.579.2.1259 1993 Unknown [id number] 2.16.84 0.1.452868.3.579.2.1259 1993 Unknown [id number] 2.16.84 0.1.045479.3.579.2.1259 1993 Unknown [id number] 2.16.84 0.1.331731.3.579.2.1259 1993 Unknown [id number] 2.16.84 0.1.521864.3.579.2.1259 1993 Unknown [id number] 2.16.84 0.1.283398.3.579.2.1259 1993 Unknown [id number] 2.16.8 40.1.511205.3.579.2.1285 1993 Unknown [id number] 2.16.8 40.1.466556.3.579.2.1285 1993 Unknown [id number] 2.16.8 40.1.903192.3.579.2.1285 1993 Unknown [id number] 2.16.8 40.1.383359.3.579.2.1285 1993 Unknown [id number] 2.16.8 40.1.839728.3.579.2.1285 1993 Unknown [id number] 2.16.8 40.1.798563.3.579.2.1285 1993 Unknown [id number] 2.16.8 40.1.579098.3.579.2.1285 1993 Unknown [id number] 2.16.8 40.1.251224.3.579.2.1285 1993 Unknown [id number] 2.16.8 40.1.568764.3.579.2.1285 1993 Unknown [id number] 2.16.8 40.1.911857.3.579.2.1285 1993 Unknown [id number] 2.16.8 40.1.140247.3.579.2.1285 1993 Unknown [id number] 2.16.8 40.1.372719.3.579.2.1285 1993 Unknown [id number] 2.16.8 40.1.816560.3.579.2.1285 1993 Unknown [id number] 2.16.8 40.1.661270.3.579.2.1286 1993 Unknown [id number] 2.16.8 40.1.975407.3.579.2.1286 1993 Unknown [id number] 2.16.8 40.1.595330.3.579.2.1285 1993 Unknown [id number] 2.16.8 40.1.030929.3.579.2.1286 1993 Unknown [id number] 2.16.8 40.1.051919.3.579.2.128 1993 Unknown [id number] 2.16.8 40.1.345417.3.579.2.1286 1993 Unknown [id number] 2.16.8 40.1.566954.3.579.2.1286 1959 Self-pay [id number] 07-31-1799 Self-pay Social History Date Type Detail Facility Start: 07-05-2022 End: 12-08-2023 Tobacco smoking status [facility] Never smoked tobacco [facility] Start: 07-05-2022 End: 12-08-2023 Tobacco use and exposure Smokeless tobacco non-user [facility] Start: 05-10-2023 End: 10-08-2023 Alcohol intake Current drinker of alcohol (finding) [facility] Start: 08-10-2020 End: 05-10-2023 Alcohol intake [facility] Start: 08-06-2020 End: 08-10-2020 Social connection and isolation panel [facility] Do you belong to any clubs or organizations such as adventist groups, unions, fraternal or athletic groups, or school groups? No [facility] Are you now , , , , never or living with a partner? [facility] How often to you hav e a drink containing alcohol? 2-4 times a month [facility] Average Number of Drinks Not on file [facility] Do you feel stress - tense, restless, nervous, or anxious, or unable to sleep at night because your mind is troubled all the time - these days [OSQ] Only a little [facility] Start: 12-22-2021 Alcohol Comment socially [facility] Start: 1995 Sex Assigned At Not on file P [facility] Start: 05-02-2024 End: 06-11-2024 Alcoholic beverage intake Ex-drinker (finding) [facility] Start: 10-17-2023 [facility] Start: 10-16-2019 Sex Female (finding) [facility] Goals Date Patient Goal Desired Activity /State Personal health goal Comment on above: Formatting of this n ote might be different from the original. Evaluation of progress towards goal: Patient plans to return home with [facility] Clinical Notes 08-30-2023 to 06-11-2024 Aklia Snider RN - 06/11/2024 11:30 AM Joseline Roman MD - 06/11/2024 11:30 AM Eleazar Garza LPN - 06/10/2024 8:30 AM Amador Abdalla RN - 06/05/2024 9:00 AM EST Note Date & Type Note Facility 06-11-2024 History of Presen t illness Narrative Headache/epigastric pain/blurry vision/swelling? no Cramping/contractions? no Abnormal vaginal discharge? no Spotting or vaginal bleeding? no Loss or gush of fluid like your water may have broken? no Recent ER visits or hospitalizations? no Any concerns that you would like me to mention to the provider today? no REASON FOR OFFICE VISIT: growth restriction has resolved. HISTORY OF PRESENT ILLNESS: Zainab Maldonado is a pleasant 28 y.o. G 2 P1 001 at 36w0d due on Estimated Date of Delivery: 07/09/24 . has been complicated with Initially seen growth restriction which has resolved now. Estimated weight at the 12th percentile with normal amniotic fluid index. 2. Complex Crohn's disease that has required multiple surgical interventions currently in remission. No active flare Currently the patient has no complaints. The patient denies nausea, vomiting, abdominal pain, vaginal bleeding, SOB or chest pain. Patient Active Problem List Diagnosis Abdominal fistula Sacral wound Primary hydronephrosis Crohn's disease of both small and large intestine with intestinal obstruction ([facility]) Ileostomy status ([facility] Colostomy status ([facility]) Rectal stricture Crohn's disease of small and large intestines with complication ([facility]) Cyst of right ovary Poor growth affecting management of mother in third trimester ALLERGIES: No Known Allergies CURRENT MEDICATIONS: Current Outpatient Medications: vit37/iron/folic acid (PRENATA ORAL), Take by mouth daily., Disp: , Rfl: valACYclovir (VALTREX) 500 mg tablet, Take 1 tablet (500 mg total) by mouth in the morning and 1 tablet (500 mg total) before bedtime., Disp: , Rfl: cholecalciferol, vitamin D3, 25 mcg (1,000 unit) tablet,chewable, Chew and swallow daily. (Patient not taking: Reported on 06/11/2024), Disp: , Rfl: folic acid (FOLVITE) 1 mg tablet, Take 1 tablet (1,000 mcg total) by mouth. (Patient not taking: Reported on 06/11/2024), Disp: , Rfl: inFLIXimab-axxq (AVSOLA) 100 mg injection, Infuse 5 mg/kg into a venous catheter every 60 (sixty) days. (Patient not taking: Reported on 05/15/2024), Disp: , Rfl: vitamin B-6 25 MG tablet, Take 1 tablet (25 mg total) by mouth. (Patient not taking: Reported on 06/11/2024), Disp: , Rfl: Past Medical History: Diagnosis Date Crohn's colitis ([facility]) Fibromyalgia, primary Herpes Ovarian cyst REVIEW OF SYSTEMS: Head and Neck: Negative for any dizziness and headaches. Cardiovascular and Respiratory System: Denies any chest pain, shortness of breath, and coughing. Abdominal and System: Denies any abdominal pain, nausea, vomiting, vaginal bleeding, and vaginal discharge REVIEW OF ULTRASOUND. Pertinent Ultrasound findings are see report. PHYSICAL EXAMINATION: BP 118/83 Pulse 105 Ht 155 cm (5' 1.02 ) Wt 72 kg (158 lb 12.8 oz) LMP 10/03/2023 (Exact Date) BMI 29.98 kg/m . Gravid abdomen, Respirations not labored. Normal gait well oriented in time place and person. RECOMMENDATION: 1. Routine care OB provider. 2. Since growth restriction has resolved patient is considered low risk and can be delivered at her local hospital at term. Recommendation for early delivery for growth restriction has been discontinued 3. Patient is scheduled for repeat at her local hospital with general surgery as backup 4. Patient does not have any future appointment scheduled with us Thank you for allowing me to participate in Zainab Maldonado care. If there are any questions, please do not hesitate to call me. Sincerely, DEVYN ROMAN MD documented in this encounter [facility] 06-10-2024 History of Presen t illness Narrative Reason for Appointment: Patient ID: Zainab Maldonado is a 28 y.o. female who [...] Past Medical History: Diagnosis Date Crohn's disease ([facility]) Genital warts Herpes Ovarian cyst HISTORY PAST [...] nursing note reviewed. Exam conducted with a health service worker present. Vitals: There is no height or [...] x1 attempt. Patient tolerated well. Remicade Lot# [id number] Exp- 08/27/2026 Time out performed prior to medication administration. Name, , medication(s) verified IV Infusion END time: 1125 patient infusion complete. IV discontinued, catheter intact, vitals WNL. Patient tolerated infusion well PIV flushed with 10 ml of 0.9% NS after medication infused documented in this encounter [facility] 06-03-2024 History of Presen t illness Narrative Reason for Appointment: Patient ID: Zainab Maldonado is a 28 y.o. female who [...] nursing note reviewed. Exam conducted with a health service worker present. Vitals: There is no height or [...] illness Narrative Reason for Appointment: Patient ID: Zainab Maldonado is a 28 y.o. female who [...] nursing note reviewed. Exam conducted with a health service worker present. Vitals: There is no height or [...] order to have NST/BPP done locally at [facility]. Documented by Paddy Garza LPN on [...] all scheduled appointments documented in this encounter [facility] 05-02-2024 History of Presen t illness Narrative Reason for Appointment: Patient ID: Zainab Maldonado is a 28 y.o. female who [...] tolerated well. Avsola x 2 vials, lot# [id number], exp date Avsola x 1 vial, lot# [id number], exp date 02/27/2027 Time out performed with [...] of info given. documented in this encounter [facility] 10-24-2023 Miscellaneous Notes Formattin g of this note might be different from the original. Patient currently receiving Avsola 5mg/kg every 8 weeks. However due to accounting practice manager delay we are unable to obtain medication. Prior auth request forms completed for Remicade 5mg/kg to be given every 56 days, faxed to [phone] Remicade approved for 5mg/kg (400mg) for 7 visits from 10/25/2023-10/23/2024. Auth # [id number] Referral placed. Therapy plan updated. Flowsheet updated. documented in this encounter [facility] 10-24-2023 Telephone encount er Note Patient currently receiving Avsola 5mg/kg every 8 weeks. However due to accounting practice manager delay we are unable to obtain medication. Prior auth request forms completed for Remicade 5mg/kg to be given every 56 days, faxed to [phone] [facility] 10-24-2023 Telephone encount er Note Remicade approved for 5mg/kg (400mg) for 7 visits from 10/25/2023-10/23/2024. Auth # [id number] Referral placed. Therapy plan updated. Flowsheet updated. [facility] 08-30-2023 History of Presen t illness Narrative 0906 Patient here for Avsola infusion. Patient denies any recent infections, open wounds, recent/future surgery, or insurance changes . Site cleansed with alcohol. IV started with 22g needle by Juan M GILL in right antecube. Patient tolerated well. 1142 patient infusion complete. IV discontinued at 1142. Patient tolerated infusion well. documented in this encounter [facility] Evaluation note Diagnosis Crohn's disease of small and large intestines with complication (CMS-HCC)- Primary [facility] Diagnosis Crohn's disease of small and large intestines with complication (CMS-HCC)- Primary [facility]* Diagnosis 30 weeks gestation of - Primary Third trimester state, incidental [facility] Diagnosis Crohn's disease of both small and large intestine with intestinal obstruction (CMS-HCC)- Primary growth restriction antepartum growth restriction antepartum- Primary [facility]* Diagnosis Crohn's disease of both small and large intestine with intestinal obstruction (CMS-HCC)- Primary growth restriction antepartum [facility]* Diagnosis 32 weeks gestation of Third trimester state, incidental [facility] Diagnosis growth restriction antepartum- Primary Crohn's disease of both small and large intestine with intestinal obstruction (CMS-HCC) 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 [facility] Diagnosis Third trimester state, incidental 34 weeks gestation of documented in this encounter [facility]* Diagnosis Crohn's disease of small and large intestines with complication (CMS-HCC)- Primary [facility]* Diagnosis Third trimester state, incidental 35 weeks gestation of Herpes Herpes simplex without mention of complication [facility] Diagnosis Crohn's disease of both small and large intestine with intestinal obstruction (CMS-HCC)- Primary [facility] filed[facility] filedocumented in this [facility] filedocumented in this encounter [facility] on filedocumented in this encounter [facility] on filedocumented in [facility] encounter [facility] on filedocumented in this encounter [facility] Summary Purpose Family History [...] section and content) DATE CREATED AUTHOR 07/08/2018 [facility] DATE CREATED AUTHOR AUTHOR'S ORGANIZ ATION 09/20/2019 [facility] DATE CREATED AUTHOR AUTHOR'S ORGANIZ ATION 12/18/2019 [facility] DATE CREATED AUTHOR AUTHOR'S ORGANIZ ATION 04/03/2024 [facility] DATE CREATED AUTHOR AUTHOR'S ORGANIZ ATION 06/06/2024 [facility] DATE CREATED AUTHOR AUTHOR'S ORGANIZ ATION 06/11/2024 [facility] EPIC DATE CREATED AUTHOR AUTHOR'S ORGANIZ ATION 06/13/2024 [facility] Reason for Visit (unrecogniz ed section and content) Reason Comments Outpatient Infusion Avsola Specialty Diagnoses / Procedures Referred By Theodore kohli Referred To Contact Gastroenterology Diagnoses Crohn's disease of both small and large intestine with unspecified complications Renflexis 400mg q8 weeks, 7 visits, 02.02.23 - 24, HK/CF, Crohn's Procedures INJECTION, INFLIXIMAB-AXXQ, BIOSIMILAR, (AVSOLA), 10 MG INFUSION Prema Abraham MD [address] [place] [address] [facility] [address] [phone] Referral ID Status Reason Start Date Expiration Date V isits Requested Visits Authorized [id number] Authorized 02/02/2023 02/02/2024 7 7 Reason Comments Outpatient Infusion Avsola Reason Comments Routine Visit Reason Comments add on NST for FGR Specialty Diagnoses / Procedures Referred By Contac t Referred To Contact Maternal and Medicine Diagnoses growth restriction antepartum Procedures nonstress test - Maternal Medicine Devyn Roman MD [address] [facility] [address] [place] [address] Phone: tel: fax: Maternal- Medicine at [address] [phone] Phone: tel: fax: Referral ID Status Reason Start Date Expiration Date V isits Requested Visits Authorized [id number] Pending Review 05/15/2024 05/15/2025 1 1 Reason Comments Outpatient Infusion Remicade Specialty Diagnoses / Procedures Referred By Contac t Referred To Contact Gastroenterology Diagnoses Crohn's disease of both small and large intestine with unspecified complications Remicade 5mg/kg every 56 days ( 400 mg) Auth'd from 10/25/2023-10/23/2024 for 7 Visits, HK/CF, Crohn's Procedures OK INFLIXIMAB INJECTION INFUSION Prema Abraham MD [facility] [place] [address] Phone: tel: fax: [facility] [address] [place] [phone] Phone: tel: fax: Referral ID Status Reason Start Date Expiration Date V isits Requested Visits Authorized [id number] Authorized 12/20/2023 12/19/2024 7 7 Reason Comments growth restriction history of bowel resection Chrohns disease Care Teams (unrecognized sec tion and content) 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 Specialty Start Date End Date Prema Abraham MD [address] [place] [address] PCP - General Family Medicine 12/17/19 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 Specialty Start Date End Date Prema Abraham MD [address] [place] [address] PCP - General Family Medicine 10/08/23 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 Specialty [place] [address] [place] [address] PCP - General Family Medicine 10/08/23 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 Specialty [place] [address] [place] [address] PCP - General Family Medicine 02/29/24 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 Specialty [place] [address] [place] [address] PCP - General Family Medicine 02/29/24 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 Specialty Start Date End Date Prema Abraham MD [address] [place] [address] PCP - General Family Medicine 02/29/24 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 Specialty Start Date End Date Prema Abraham MD [address] [place] [address] PCP - General Family Medicine 02/29/24 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 Specialty Start Date End Date Prema Abraham MD [address] [place] [address] PCP - General Family Medicine 02/29/24 FOR [...] BE BASED ON THE PRIMARY CLINICAL RECORDS. [facility] [employer] [facility]. provides no warranty or guarantee of the accuracy or completeness of information in this document.
[2024-06-14 08:53] VITALS: BP 132/86; PULSE 115
== END 2024-06-14 09:40 | disposition home or self-care (01) ==
LOC: FBCO 06:40 → FBC 08:47
PROVIDERS: PCP Family Medicine; Visit Provider Obstetrics & Gynecology
DX: O26.893 Other specified pregnancy related conditions, third trimester (principal); Z3A.36 36 weeks gestation of pregnancy
CPT/HCPCS: 59025

== ENCOUNTER 2024-06-18 08:51 | Outpatient (OUT) | payer MEDICAID, SELFPAY ==
--- NOTE | 2024-06-18 08:56 | US_ITS ---
[address] [address] Patient Name: ZAINAB SAAVEDRA MRN: [id number] date: 1995 Sex: F Assigned Patient Location: [facility] Current Patient Location: [facility] Accession/Order Number: [id number] Exam Date: 06/18/2024 09:00 Report Date: 06/19/2024 03:36 At the request of: SHERRY REYNA Procedure: US OB BPP w non-stress EXAMINATION: US OB BPP w non-stress HISTORY:Crohn's disease with complication K50.919 COMPARISON: Ultrasound OB biophysical 06/11/2024 TECHNIQUE: Ultrasound biophysical profile was performed in the radiology department. BREATHING MOVEMENTS: 2 GROSS BODY MOVEMENTS: 2 TONE: 2 QUALITATIVE AMNIOTIC FLUID VOLUME: 2 PRESENTATION: CEPHALIC HEART RATE: 161.68 bpm AMNIOTIC FLUID VOLUME: 18.55 cm GESTATIONAL AGE: 37 weeks 0 days US/US OB BPP w non-stress IMPRESSION: Total biophysical profile score: 8 Electronically authenticated by: SUKHWINDER RASHID Date: 06/19/2024 03:36
--- OUTSIDE RECORDS SUMMARY | 2024-06-18 09:14 | XMS_ITS | CCD ---
Author Organization [facility] Care Team Providers Care Dormitory Keeper Name Role Phone Trang Harrison Unavailable Unavailable [...] HORAN Attending Unavailable AUNG, SHERRY Attending Unavailable JULIANA, [...] CHAU Attending Unavaila DEVYN Veras Referring Unavailable PREMA ABRAHAM Primary Care Unavailable YADIRA CHAU Referring Unavaila ble ABRAHAM, PREMA E Primary [...] Unavailable ABRAHAM, PREMA E Primary Care Unavailable ART PORTIA Referring Unavailable ABRAHAM, PREMA E Primary Care [...] for cough. 21 capsule 0 10/08/2023 Active folic acid 1 mg oral tablet [...] 10 tablet 0 10/08/2023 Active Vit-Fe Fumarate-FA (RADLIVE VITAMINS PO) (14 sources) Start: 11-16-2023 take 1 dose by mouth once daily Vit-Fe Fumarate-FA (RADLIVE VITAMINS PO) 1 each Daily 11/16/2023 Active [...] 08/17/2021 Active valACYclovir 1000 mg oral tablet (5 sources) Herpesvirus Nucleoside Analog DNA Polymerase Inhibitor, [...] Drug Class(es) Dates Sig (Normalized) Sig (Original) cholecalciferol 0.025 mg chewable tablet (20 sources) Vitamin D End: 06-17-2024 Cholecalciferol 25 MCG (1000 UT) chewable tablet Chew Daily 06/17/2024 Discontinued inFLIXimab (REMICADE) 5 mg/kg = 300 mg [...] complete. Adjust rates respectively for other volumes. Look-alike/sound-carol e medication - verify indication for use. Administer [...] 03-28-2024 Episodic Other and delivery including normal (10 sources) Third trimester ; Translations: [Encounter for [...] [35 weeks gestation of ] 06-10-2024 Episodic Residual codes; unclassified (2 sources) Gestation period, 36 weeks; Translations: [36 weeks gestation of ] 06-17-2024 Episodic Spondylosis; intervertebral disc disorders; other back [...] Range Facility Urinalysis macro (dipstick) panel (U)on 06-17-2024 Bilirubin, UA Negative Negative - 4(70) +++ mg/dL [facility] Blood, UA Positive Negative - 50 Kal/mcL [facility] Comment on above: trace-intact Clarity, UA Clear [facility] Color, UA Yellow [facility] Glucose, UA Negative Negative - 2000(110) ++++ mg/dL [facility] Interpretation and review of laboratory results Abnormal [facility] Ketones, UA Positive Negative - 160(16) ++++ mg/dL [facility] Comment on above: trace Leukocytes, UA Negative Negative - 500+++ Sandra/mcL [facility] Nitrite, UA Negative Negative - Positive [facility] pH, UA 5.5 5 - 9 [facility] Protein, UA Negative Negative - 1999(20) ++++ mg/dL [facility] Spec Grav, UA 1.01 1 - 1.03 [facility] Urobilinogen, UA 0.2 0.2 - 12 mg/dL [facility] Urinalysis macro (dipstick) panel (U)on 06-10-2024 Bilirubin, UA Negative Negative - 4(70) +++ mg/dL [facility] Blood, UA Positive Negative - 50 Kal/mcL [facility] Clarity, UA Clear [facility] Color, UA Yellow [facility] Glucose, UA Negative Negative - 1999(110) ++++ mg/dL [facility] Interpretation and review of laboratory results Abnormal [facility] Ketones, UA Negative Negative - 160(16) ++++ mg/dL [facility] Leukocytes, UA Negative Negative - 500+++ Sandra/mcL [facility] Nitrite, UA Negative Negative - Positive [facility] pH, UA 6 5 - 9 [facility] Protein, UA Negative Negative - 1999(20) ++++ mg/dL [facility] Spec Grav, UA 1.02 1 - 1.03 [facility] Urobilinogen, UA 1.0 0.2 - 12 mg/dL [facility] Urinalysis macro (dipstick) panel (U)on 06-03-2024 Bilirubin, UA Negative Negative - 4(70) +++ mg/dL [facility] Blood, UA Negative Negative - 50 Kal/mcL [facility] Clarity, UA Clear [facility] Color, UA Yellow [facility] Glucose, UA Negative Negative - 1999(110) ++++ mg/dL [facility] Interpretation and review of laboratory results Normal [facility] Ketones, UA Negative Negative - 160(16) ++++ mg/dL [facility] Leukocytes, UA Negative Negative - 500+++ Sandra/mcL [facility] Nitrite, UA Negative Negative - Positive [facility] pH, UA 5.5 5 - 9 [facility] Protein, UA Negative Negative - 1999(20) ++++ mg/dL [facility] Spec Grav, UA 1.03 1 - 1.03 [facility] Urobilinogen, UA 0.2 0.2 - 12 mg/dL [facility] Urinalysis macro (dipstick) panel (U)on 05-16-2024 Bilirubin, UA Negative Negative - 4(70) +++ mg/dL [facility] Blood, UA Positive Negative - 50 Kal/mcL [facility] Comment on above: trace-intact Clarity, UA Clear [facility] Color, UA Yellow [facility] Glucose, UA Negative Negative - 1999(110) ++++ mg/dL [facility] Interpretation and review of laboratory results Abnormal [facility] Ketones, UA Negative Negative - 160(16) ++++ mg/dL [facility] Leukocytes, UA Negative Negative - 500+++ Sandra/mcL [facility] Nitrite, UA Negative Negative - Positive [facility] pH, UA 6 5 - 9 [facility] Protein, UA Negative Negative - 1999(20) ++++ mg/dL [facility] Spec Grav, UA 1.025 1 - 1.03 [facility] Urobilinogen, UA 0.2 0.2 - 12 mg/dL [facility] No Panel Informationon 05-15 Patient Name: Kishor Maldonado Patient : 1995 NST Objective Findings: Variability: Moderate Decelerations: None Accelerations: Yes Acoustic Stimulator: No Baseline: 130 BPM Uterine Irritability: Yes Contractions: Not present Comments: Uterine irritability noted, intercourse this morning. [facility] instructions/handout and labor precautions reviewed. NST Interpretation: Nonstress Test Interpretation: Reactive (Devyn Roman MD) NST performed by: Aislinn Richardson RN 05/15/2024 4:30 PM [facility] M. tuberculosis stim IFN-g p venkat (Bld)on 03-29-2024 Mitogen minus Nil Result 1.22 IU/mL Normal [facility] Comment on above: Performed By: #### C MP, 1988-5, HA1C, CBCA, 5196-1, 26713-6, 70973-0, 2132-9, 17703-6, 8014-3, 41690-0 #### [facility] ([id number]) [address] [facility] [address], [address] [place] [address] Nil Result 0.02 IU/mL Normal [facility] Comment on above: Result Comment: NOTE Test Performed by: [facility] [place] [address] [place] [address] Clerk Cashier: Donnie Sanon Ph.D.; CLIA# [id number] Performed By: #### C AGNES, 1989-11, HA1C, CBCA, 5196-1, 80260-9, 39312-2, 2132-9, 83167-6, 8014-3, 82773-5 #### [facility] ([id number]) [address] [facility] [address], [address] [place] [address] QuantiFERON-Tb Gold Plus Result Negative Normal Negative [facility] Comment on above: Result Comment: [...] Diagnosis of Tuberculosis in Adults and Children [Messiinsohn PATRICIA et. al. Clin. Infect. Dis. 2017;64(2):111-115]. The reference range for the 'TB1 Ag minus Nil Result' and 'TB2 Ag minus Nil Result' is an Interferon-gamma level <0.35 IU/mL. Performed By: #### C AGNES, 1989-11, HA1C, CBCA, 5196-1, 99716-0, 54194-2, 2-9, 97133-0, 8014-3, 52047-4 #### [facility] ([id number]) [address] [facility], [address] [place] [address] TB1 Ag minus Nil Result NEG 0.01 Normal [facility] Comment on above: Performed By: #### C AGNES, 1989-11, HA1C, CBCA, 5196-1, 90249-8, 55788-2, 2132-9, 17111-3, 8014-3, 42819-8 #### [facility] ([id number]) [address] [facility] [facility], [address] [place] [address] TB2 Ag minus Nil Result NEG 0.01 Normal [facility] Comment on above: Performed By: #### C AGNES, 1989-11, HA1C, CBCA, 5196-1, 01199-3, 94764-4, 2132-9, 19334-6, 8014-3, 32772-6 #### [facility] ([id number]) [address] [facility] [address] [place] [address] CBC AND AUTO DIFFon 12-11-19 24 ABSOLUTE BASOPHIL 0.0 X10E9/L Normal 0.0-0.2 [facility] Comment on above: Performed By: #### C AGNES, 1989-11, HA1C, CBCA, 5196-1, 02610-4, 59935-0, 2131-9, 49487-6, 8014-3, 32029-5 #### [facility] ([id number]) [address] [place] [address] ABSOLUTE NEUTROPHIL 5.5 X10E9/L Normal 1.5-6.6 [facility] Comment on above: Performed By: #### Clyde ALARCON, 1989-11, HA1C, CBCA, 5196-1, 85202-1, 59031-6, 2131-9, 82427-4, 8014-3, 97571-2 #### [facility] ([id number]) [address] [address] [place] [address] Basophils/100 WBC (Bld) 0.3 % Normal [facility] Comment on above: Performed By: #### C AGNES, 1989-11, HA1C, CBCA, 5196-1, 04214-7, 15929-9, 2131-9, 23354-4, 8014-3, 03183-7 #### [facility] ([id number]) [address] [place] [address] Eosinophils (Bld) [#/Vol] 0.2 10*3/uL Normal 0.0-0.4 [facility] Comment on above: Performed By: #### C AGNES, 1989-11, HA1C, CBCA, 5196-1, 07483-7, 80504-7, 2132-9, 09128-3, 8014-3, 07290-5 #### [facility] ([id number]) [address], [address] [place] [address] Eosinophils/100 WBC (Bld) 2.6 % Normal [facility] Comment on above: Performed By: #### C AGNES, 1989-11, HA1C, CBCA, 5196-1, 07349-7, 64382-9, 2-9, 62153-1, 8014-3, 90470-8 #### [facility] ([id number]) [address], [address] [place] [address] Erythrocyte distribution width (RBC) [Ratio] 13.3 % Normal 11.5-15.0 [facility] Comment on above: Performed By: #### C AGNES, 1989-11, HA1C, CBCA, 5196-1, 34948-2, 84751-3, 2-9, 98705-0, 8014-3, 40268-3 #### [facility] ([id number]) [address], [address] [place] [address] Hematocrit (Bld) [Volume fraction] 40.5 % Normal 35-47 [facility] Comment on above: Performed By: #### C AGNES, 1989-11, HA1C, CBCA, 5196-1, 46801-6, 68040-7, 2132-9, 84423-9, 8014-3, 57700-4 #### [facility] ([id number]) [address], [address] [place] [address] Hemoglobin (Bld) [Mass/Vol] 14.2 g/dL Normal 11.7-15.5 [facility] Comment on above: Performed By: #### C AGNES, 1989-11, HA1C, CBCA, 5196-1, 48802-6, 74098-9, 2132-9, 59184-8, 8014-3, 37722-8 #### [facility] ([id number]) [address], [address] [place] [address] Lymphocytes (Bld) [#/Vol] 1.3 10*3/uL Normal 1.0-3.5 [facility] Comment on above: Performed By: #### C AGNES, 1989-11, HA1C, CBCA, 5196-1, 64404-8, 05625-6, 2131-9, 06050-3, 8014-3, 41282-5 #### [facility] ([id number]) [address], [address] [place] [address] Lymphocytes/100 WBC (Bld) 18.2 % Normal [facility] Comment on above: Performed By: #### C AGNES, 1989-11, HA1C, CBCA, 5196-1, 50223-0, 01561-2, 2131-9, 53093-7, 8014-3, 52448-3 #### [facility] ([id number]) [address], [address] [place] [address] MCH (RBC) [Entitic mass] 30.7 pg Normal 27-34 [facility] Comment on above: Performed By: #### C AGNES, 1989-11, HA1C, CBCA, 5196-1, 47670-2, 60603-5, 2131-9, 97601-8, 8014-3, 98974-2 #### [facility] ([id number]) [address], [address] [place] [address] MCHC (RBC) [Mass/Vol] 35.2 g/dL Normal 32-36 [facility] Comment on above: Performed By: #### C AGNES, 1989-11, HA1C, CBCA, 5196-1, 30851-9, 55315-6, 2131-9, 94454-0, 8014-3, 39582-9 #### [facility] ([id number]) [address], [address] [place] [address] MCV (RBC) [Entitic vol] 87 fL Normal 80-100 [facility] Comment on above: Performed By: #### C AGNES, 1989-11, HA1C, CBCA, 5196-1, 95420-9, 00017-2, 2131-9, 43307-4, 8014-3, 45662-6 #### [facility] ([id number]) [address], [address] [place] [address] Monocytes (Bld) [#/Vol] 0.4 10*3/uL Normal 0-0.9 [facility] Comment on above: Performed By: #### C AGNES, 1989-11, HA1C, CBCA, 5196-1, 85617-6, 42888-4, 2131-9, 70612-8, 8014-3, 22700-3 #### [facility] ([id number]) [address], [address] [place] [address] Monocytes/100 WBC (Bld) 5.1 % Normal [facility] Comment on above: Performed By: #### C AGNES, 1989-11, HA1C, CBCA, 5196-1, 41866-1, 19910-8, 2131-9, 79102-1, 8014-3, 25599-4 #### [facility] ([id number]) [address], [address] [place] [address] Neutrophils/100 WBC (Bld) 73.8 % Normal [facility] Comment on above: Performed By: #### C AGNES, 1989-11, HA1C, CBCA, 5196-1, 60312-6, 01096-6, 2131-9, 40245-5, 8014-3, 14507-9 #### [facility] ([id number]) [address], [address] [place] [address] Platelet mean volume (Bld) [Entitic vol] 9.1 fL Normal 7-12 [facility] Comment on above: Performed By: #### C AGNES, 1989-11, HA1C, CBCA, 5196-1, 80945-0, 47524-3, 2132-9, 08327-7, 8014-3, 13550-3 #### [facility] ([id number]) [address], [address] [place] [address] Platelets (Bld) [#/Vol] 254 10*3/uL Normal 150-450 [facility] Comment on above: Performed By: #### C AGNES, 1989-11, HA1C, CBCA, 5196-1, 30523-2, 86175-0, 2132-9, 18289-4, 8014-3, 76841-9 #### [facility] ([id number]) [address], [address] [place] [address] RBC COUNT 4.63 X10E12/L Normal 3.80-5.20 [facility] Comment on above: Performed By: #### Clyde ALARCON, 1989-11, HA1C, CBCA, 5196-1, 63541-0, 37952-1, 2132-9, 36913-4, 8014-3, 62104-4 #### [facility] ([id number]) [address], [address] [place] [address] WBC (Bld) [#/Vol] 7.4 10*3/uL Normal 4.0-11.0 [facility] Comment on above: Performed By: #### C AGNES, 1989-11, HA1C, CBCA, 5196-1, 07837-0, 51046-9, 2132-9, 92856-9, 8014-3, 93571-7 #### [facility] ([id number]) [address], [address] [place] [address] COMPREHENSIVE METABOLIC PANE Jesse 12-11-2023 Albumin [Mass/Vol] 4.3 g/dL Normal 3.2-5.3 [facility] Comment on above: Performed By: #### C AGNES, 1989-11, HA1C, CBCA, 5196-1, 64405-5, 97947-0, 2131-9, 44476-8, 8014-3, 00642-2 #### [facility] ([id number]) [address], [address] [place] [address] ALP [Catalytic activity/Vol] 48 U/L Normal 39-130 [facility] Comment on above: Performed By: #### C AGNES, 1989-11, HA1C, CBCA, 5196-1, 98878-2, 43884-6, 2131-9, 93524-3, 8014-3, 57387-2 #### [facility] ([id number]) [address], [address] [place] [address] ALT [Catalytic activity/Vol] 13 U/L Normal 0-31 [facility] Comment on above: Performed By: #### C AGNES, 1989-11, HA1C, CBCA, 5196-1, 46575-0, 44187-5, 2131-9, 14479-6, 8014-3, 82102-3 #### [facility] ([id number]) [address], [address] [place] [address] Anion gap [Moles/Vol] 10 mmol/L Normal 5-15 [facility] Comment on above: Performed By: #### C AGNES, 1989-11, HA1C, CBCA, 5196-1, 33065-4, 55154-7, 2131-9, 87937-4, 8014-3, 29574-5 #### [facility] ([id number]) [address], [address] [place] [address] AST [Catalytic activity/Vol] 17 U/L Normal 0-41 [facility] Comment on above: Performed By: #### C AGNES, 1989-11, HA1C, CBCA, 5196-1, 12028-0, 83256-2, 2132-9, 71319-4, 8014-3, 95356-4 #### [facility] ([id number]) [address] [facility] [facility], [address] [place] [address] Bilirubin [Mass/Vol] 0.7 mg/dL Normal 0.3-1.2 [facility] Comment on above: Performed By: #### C AGNES, 1989-11, HA1C, CBCA, 5196-1, 28309-4, 85897-1, 2131-9, 78841-3, 8014-3, 33066-1 #### [facility] ([id number]) [address] [facility] [facility] [place] [address] Calcium [Mass/Vol] 9.5 mg/dL Normal 8.5-10.5 [facility] Comment on above: Performed By: #### C AGNES, 1989-11, HA1C, CBCA, 5196-1, 14496-0, 58328-0, 2131-9, 63846-2, 8014-3, 27064-7 #### [facility] ([id number]) [address] [facility] [facility], [address] [place] [address] Chloride [Moles/Vol] 104 mmol/L Normal 98-109 [facility] Comment on above: Performed By: #### C AGNES, 1989-11, HA1C, CBCA, 5196-1, 82124-6, 67792-3, 2131-9, 46023-3, 8014-3, 76503-9 #### [facility] ([id number]) [address], [address] [place] [address] CO2 [Moles/Vol] 23 mmol/L Normal 22-32 [facility] Comment on above: Performed By: #### C AGNES, 1989-11, HA1C, CBCA, 5196-1, 63600-9, 40863-9, 2131-9, 11071-4, 8014-3, 00810-7 #### [facility] ([id number]) [address] [facility] [facility], [address] [place] [address] Creatinine [Mass/Vol] 0.49 mg/dL Normal 0.40-1.00 [facility] Comment on above: Result Comment: METH OD TRACEABLE TO IDMS STANDARD Performed By: #### C AGNES, 1989-11, HA1C, CBCA, 5196-1, 70424-6, 24856-3, 2131-9, 44225-7, 8014-3, 92101-2 #### [facility] ([id number]) [address] [facility], [address] [place] [address] eGFR (CKD-EPI) NON-RACE DEPENDENT >90 Normal >59 [facility] Comment on above: Result Comment: Reported eGFR is based on the CKD-EPI 2020 equation that does not use a race coefficient. Performed By: #### C AGNES, 1989-11, HA1C, CBCA, 5196-1, 55144-8, 94400-2, 2131-9, 28622-2, 8014-3, 25591-8 #### [facility] ([id number]) [address] [facility], [address] [place] [address] Glucose [Mass/Vol] 92 mg/dL Normal 65-99 [facility] Comment on above: Performed By: #### C AGNES, 1989-11, HA1C, CBCA, 5196-1, 37650-3, 09405-1, 2131-9, 97017-2, 8014-3, 49446-9 #### [facility] ([id number]) [address], [address] [place] [address] Potassium [Moles/Vol] 4.1 mmol/L Normal 3.5-5.0 [facility] Comment on above: Performed By: #### C AGNES, 1989-11, HA1C, CBCA, 5196-1, 45203-5, 33714-9, 2132-9, 45662-6, 8014-3, 47592-5 #### [facility] ([id number]) [address], [address] [place] [address] Protein [Mass/Vol] 7.5 g/dL Normal 6.0-8.0 [facility] Comment on above: Performed By: #### C AGNES, 1989-11, HA1C, CBCA, 5196-1, 52262-2, 58321-9, 2131-9, 35574-1, 8014-3, 47630-5 #### [facility] ([id number]) [address], [address] [place] [address] Sodium [Moles/Vol] 137 mmol/L Normal 134-146 [facility] Comment on above: Performed By: #### C AGNES, 1989-11, HA1C, CBCA, 5196-1, 78643-5, 72644-8, 2131-9, 33492-0, 8014-3, 75877-4 #### [facility] ([id number]) [address], [address] [place] [address] Urea nitrogen [Mass/Vol] 6 mg/dL Normal 5-23 [facility] Comment on above: Performed By: #### C AGNES, 1989-11, HA1C, CBCA, 5196-1, 76129-7, 63027-5, 2131-9, 32689-9, 8014-3, 46666-1 #### [facility] ([id number]) [address], [address] [place] [address] CRP [Mass/Vol]on 12-11-2023 C REACTIVE PROTEIN 0.5 mg/dL Normal 0.000-0.744 [facility] Comment on above: Performed By: #### C AGNES, 1989-11, HA1C, CBCA, 5196-1, 96148-4, 34432-1, 2131-9, 90332-5, 8014-3, 39133-6 #### [facility] ([id number]) [address] [facility], [address] [place] [address] HBV surface Ag IA Qlon 12-10 HEPATITIS B SURF AG Negative Normal NEG [facility] Comment on above: Performed By: #### C AGNES, 1989-11, HA1C, CBCA, 5196-1, 51103-6, 02268-1, 2132-9, 21703-7, 8014-3, 86367-9 #### [facility] ([id number]) [address] [facility], [address] [place] [address] HCV Ab IA Qlon 12-11-2023 ANTI HCV W/PCR REFLX Non-Reactive Normal NRCT Pr [facility] Comment on above: Result Comment: If recent infection suspected, recommend repeat testing (>2 months). Ixckue-je-vtokjj ratio is <0.80. Performed By: #### C AGNES, 1989-11, HA1C, CBCA, 5196-1, 96831-4, 87601-7, 2-9, 56476-1, 8014-3, 07940-8 #### [facility] ([id number]) [address] [facility], [address] [place] [address] HGB A1C (GLYCO-HGB)on 2023 Glucose [Mass/Vol] 103 mg/dL Normal [facility] Comment on above: Performed By: #### C AGNES, 1989-11, HA1C, CBCA, 5196-1, 03758-9, 49471-3, 2-9, 56923-5, 8014-3, 48185-5 #### [facility] ([id number]) [address] [facility], [address] [place] [address] HbA1c (Bld) [Mass fraction] 5.2 % Normal 4.4-5.6 [facility] Comment on above: Result Comment: NOTE ADA Guidelines Result HgbA1c Normal : less than 5.7 % Prediabetes : 5.7 % to 6.4 % Diabetes : > 6.4 % Use with caution in patients with abnormal hemoglobin variants as the half-life of red blood cells and in vivo glycation rates are affected. Performed By: #### C AGNES, 1989-11, HA1C, CBCA, 5196-1, 51943-7, 32967-4, 2132-9, 81843-0, 8014-3, 94267-7 #### [facility] ([id number]) [address], [address] [place] [address] HIV 1+2 Ab+HIV1 p24 Ag IA Ql on 12-11-2023 HIV 1 and 2 Ab/Ag Screen Non-Reactive Normal NRCT [facility] Comment on above: Result Comment: [...] #### C AGNES, 1989-11, HA1C, CBCA, 5196-1, 19828-5, 49137-4, 2-9, 28584-0, 8014-3, 84730-6 #### [facility] ([id number]) [address] [place] [address], [address] [place] [address] Rubella virus IgG Qn (S)on 0 12-11-2023 RUBELLA IgG 30 IU/mL Normal [facility] Comment on above: Result Comment: Interpretation-------- <8 NEGATIVE-considered Not Immune 8-9 EQUIVOCAL-consider retesting with new specimen >9 POSITIVE-considered Immune Performed By: #### C AGNES, 1989-11, HA1C, CBCA, 5196-1, 13609-4, 16200-3, 2131-9, 21417-0, 8014-3, 30093-3 #### [facility] ([id number]) [address], [address] [place] [address] T. pallidum IgG+IgM IA Ql (S )on 12-11-2023 Syphilis Total <0.2 Normal 0.0-0.8 [facility] Comment on above: Result Comment: NON REACTIVE No serologic evidence of infection to Treponema pallidum (syphilis). Repeat testing may be considered in patients with suspected acute or primary syphilis in 2 to 4 weeks. Performed By: #### C AGNES, 1989-11, HA1C, CBCA, 5196-1, 01060-2, 04237-9, 2-9, 02091-5, 8014-3, 80158-7 #### [facility] ([id number]) [facility], [address] [place] [address] VITAMIN B12on 12-11-2023 Cobalamin (Vitamin B12) [Mass/Vol] 142 pg/mL Low 180-914 [facility] Comment on above: Performed By: #### C AGNES, 1989-11, HA1C, CBCA, 5196-1, 11288-4, 71222-1, 2-9, 75950-6, 8014-3, 77543-5 #### [facility] ([id number]) [address], [address] [place] [address] Vitamin D+Metabolites [Mass/ Vol]on 12-11-2023 VITAMIN D 25 HYD TOT 21.8 ng/mL Low 30-100 [facility] Comment on above: Result Comment: Vitamin D status 25 [place] Vitamin D Deficiency <20 ng/mL Insufficiency 20-29 ng/mL Sufficiency 30-100 ng/mL Toxicity >100 ng/mL NOTE: A pediatric reference range has not been established by the interactive media designer of this kit. The [place] [employer] recommends a Vitamin D level of = or >20ng/mL in infants and children. Performed By: #### C MP, 1989-5, HA1C, CBCA, 5196-1, 86459-4, 26546-4, 2132-9, 76760-6, 8014-3, 13620-0 #### [facility] ([id number]) [address], [address] [place] [address] SARS/FLU A+B/RSV by NAAT/Mol ecularon 10-08-2023 SARS/FLU [...] operators who are performing tests using either [employer] or [employer] systems and is limited to laboratories that [...] repeat. Fact Sheet for Healthcare Providers: https://www.fda.gov/media /001102/download Fact Sheet for Patients: https://www.fda.gov/media /311630/download Normal [facility] Comment on above: Performed By: #### C OVFLR #### [facility] ([id number]) [address] [place] [address], [place] [address] Consultation Noteon 12-18-19 Consultation Note [id number]:12 [id number] Normal [facility] Patient Education on 06-04-2018 Ambulatory Patient Education Patient Education MaterialsName: Comfort Maldonado Current Date: 06/04/2018 11:43:12 [place]OB: 1995 following sheet(s) are the Patient Education Leaflets for Comfort Maldonado Normal [facility] Gastroenterology Office/Clin ic Noteon 06-04-2018 Gastroenterology [...] her being referred to Dr. Bowers at [facility] in [place]. She states that she had a colonoscopy [...] Endoscopy history: Colonoscopy done on 04/17/2018 at [facility] Constitutional: 45 pound weight loss [...] this settingElectronically signed by _Trang Harrison MD N 06/05/18 15:58 EST Normal [facility] Vital Signs Date Time Vital Sign Value Performing Clinician Facility 06-17-2024 14:18-0500 Body weight 73.21 kg Sayra BROWN Work Phone: [facility] 06-17-2024 14:18-0500 Diastolic blood pressure 62 mm[Hg] Sayra BROWN Work Phone: [facility] 06-17-2024 14:18-0500 Systolic blood pressure 100 mm[Hg] Sayra BROWN Work Phone: [facility] 06-11-2024 10:48-0500 Body height 155 cm Devyn Roman MD Work Phone: [facility] 06-11-2024 10:48-0500 Body mass index (BMI) [Ratio] 29.98 kg/m2 Devyn Roman MD Work Phone: [facility] 06-11-2024 10:48-0500 Body weight 72.03 kg Devyn Roman MD Work Phone: [facility] 06-11-2024 10:48-0500 Diastolic blood pressure 83 mm[Hg] Devyn Roman MD Work Phone: [facility] 06-11-2024 10:48-0500 Heart rate 105 /min Devyn Roman MD Work Phone: [facility] 06-11-2024 10:48-0500 Systolic blood pressure 118 mm[Hg] Devyn Roman MD Work Phone: [facility] 06-10-2024 08:43-0500 Body weight 72.12 kg Sherry Aung DO Work Phone: [facility] 06-10-2024 08:43-0500 Diastolic blood pressure 70 mm[Hg] Sherry Aung DO Work Phone: [facility] 06-10-2024 08:43-0500 Systolic blood pressure 110 mm[Hg] Sherry Aung DO Work Phone: [facility] 06-05-2024 09:00-0500 Body mass index (BMI) [Ratio] 26.55 kg/m2 [facility] 1 [facility] 06-05-2024 09:00-0500 Body temperature 98.4 [degF] [facility] 1 [facility] 06-05-2024 09:00-0500 Body weight 63.78 kg [facility] 1 [facility] 06-05-2024 09:00-0500 Diastolic blood pressure 73 mm[Hg] [facility] 1 [facility] 06-05-2024 09:00-0500 Heart rate 99 /min [facility] 1 [facility] 06-05-2024 09:00-0500 Respiratory rate 16 /min [facility] 1 [facility] 06-05-2024 09:00-0500 Systolic blood pressure 114 mm[Hg] [facility] 1 [facility] 06-03-2024 08:25-0500 Body weight 70.76 kg Sherry Aung DO Work Phone: [facility] 06-03-2024 08:25-0500 Diastolic blood pressure 68 mm[Hg] Sherry Aung DO Work Phone: [facility] 06-03-2024 08:25-0500 Systolic blood pressure 114 mm[Hg] Sherry Aung DO Work Phone: [facility] 05-16-2024 09:01-0400 Body weight 70.67 kg Sherry Aung DO Work Phone: [facility] 05-16-2024 09:01-0400 Diastolic blood pressure 64 mm[Hg] Sherry Aung DO Work Phone: [facility] 05-16-2024 09:01-0400 Systolic blood pressure 120 mm[Hg] Sherry Aung DO Work Phone: [facility] 05-15-2024 16:05-0400 Diastolic blood pressure 72 mm[Hg] [address] 05-15-2024 16:05-0400 Heart rate 93 /min [address] 05-15-2024 16:05-0400 Systolic blood pressure 110 mm[Hg] [address] 05-02-2024 09:35-0400 Body weight 68.58 kg Sayra BROWN Work Phone: [facility] 05-02-2024 09:35-0400 Diastolic blood pressure 68 mm[Hg] Sayra BROWN Work Phone: [facility] 05-02-2024 09:35-0400 Systolic blood pressure 110 mm[Hg] Sayra BROWN Work Phone: [facility] 10-25-2023 11:28-0400 Body temperature 99.1 [degF] [facility] 2 [facility] 10-25-2023 11:28-0400 Diastolic blood pressure 62 mm[Hg] [facility] 2 [facility] 10-25-2023 11:28-0400 Heart rate 74 /min [facility] 2 [facility] 10-25-2023 11:28-0400 Respiratory rate 18 /min [facility] 2 [facility] 10-25-2023 11:28-0400 Systolic blood pressure 97 mm[Hg] [facility] 2 [facility] 10-25-2023 08:54-0400 Body mass index (BMI) [Ratio] 25.32 kg/m2 [facility] 2 [facility] 10-25-2023 08:54-0400 Body weight 60.78 kg [facility] 2 [facility] 08-30-2023 11:44-0500 Body temperature 98.2 [degF] [facility] 1 [facility] 08-30-2023 11:44-0500 Diastolic blood pressure 68 mm[Hg] [facility] 1 [facility] 08-30-2023 11:44-0500 Heart rate 73 /min [facility] 1 [facility] 08-30-2023 11:44-0500 SaO2% (BldA) [Mass fraction] 98 % [facility] 1 [facility] 08-30-2023 11:44-0500 Systolic blood pressure 99 mm[Hg] [facility] 1 [facility] 08-30-2023 09:00-0500 Body mass index (BMI) [Ratio] 26.38 kg/m2 [facility] 1 [facility] 08-30-2023 09:00-0500 Body weight 63.32 kg [facility] 1 [facility] Encounters Encounter Date Encounter Type Care Provider Facility Start: 06-17-2024 End: 06-17-2024 Office outpatient visit 15 minutes Sayra BROWN Work Phone: [facility] Comment on above: 36 weeks gestation o f ; Third trimester Start: 06-11-2024 End: 06-11-2024 Office outpatient visit 15 minutes Devyn Roman MD Work Phone: [facility] Comment on above: Crohn's disease of b oth small and large intestine with intestinal obstruction (CMS-HCC) (Primary Dx) Start: 06-11-2024 End: 06-11-2024 ambulatory SHERRY R AUNG [facility] Start: 06-10-2024 End: 06-10-2024 Bamboo flowsheet Sherry Aung DO Work Phone: [facility] Start: 06-10-2024 End: 06-10-2024 Bamboo flowsheet Sherry Aung DO Work Phone: [facility] Start: 06-10-2024 End: 06-10-2024 Office outpatient visit 15 minutes Sherry Aung DO Work Phone: [facility] Comment on above: Third trimester preg delfina; 35 weeks gestation of ; Herpes Start: 06-10-2024 End: 06-10-2024 ambulatory SHERRY AUNG Not Available Start: 06-05-2024 End: 06-05-2024 ambulatory Pplc [facility] Infusion Chair 1 [facility] Comment on above: Crohn's disease of s mall and large intestines with complication ([facility]) (Primary Dx) Start: 06-03-2024 End: 06-03-2024 Bamboo flowsheet Sherry Aung DO Work Phone: [facility] Start: 06-03-2024 End: 06-03-2024 Bamboo flowsheet Sherry Aung DO Work Phone: [facility] Start: 06-03-2024 End: 06-03-2024 Office outpatient visit 15 minutes Sherry Aung DO Work Phone: [facility] Comment on above: Third trimester preg delfina; 34 weeks gestation of Start: 06-03-2024 End: 06-03-2024 ambulatory SHERRY AUNG Not Available Start: 05-30-2024 End: 05-30-2024 ambulatory SHERRY R AUNG [facility] Start: 05-17-2024 End: 05-17-2024 Orders Only Akila Snider RN [facility] Comment on above: growth restric tion antepartum (Primary Dx); Crohn's disease of both small and large intestine with intestinal obstruction ([facility]); Deviation of long axis of heart of [...] 05-15-2024 End: 05-15-2024 Orders Only Jenni Owen [facility] Comment on above: growth restric [...] Start: 04-30-2024 End: 04-30-2024 ambulatory SHERRY R [facility] Start: 04-17-2024 End: 04-17-2024 ambulatory SHERRY R [facility] Start: 04-10-2024 End: 04-10-2024 ambulatory [facility] Start: 04-04-2024 End: 04-04-2024 ambulatory SHERRY AUNG Not Available Start: 04-02-2024 End: 04-02-2024 ambulatory SHERRY R [facility] Start: 03-29-2024 End: 03-29-2024 ambulatory [facility] Start: 03-28-2024 End: 03-28-2024 ambulatory [facility] Start: 03-28-2024 End: 03-28-20[facility] Start: 03-19-2024 End: 03-19-2024 ambulatory YADIRA CHAU [facility] Start: 03-05-2024 End: 03-05-2024 ambulatory SAYRA ANDREWS Not Available Start: 02-29-2024 End: 02-29-2024 ambulatory [facility] Start: 02-20-2024 End: 02-20-2024 [facility] Start: 02-14-2024 End: 02-14-2024 ambulatory [facility] Start: 02-06-2024 End: 02-06-2024 ambulatory SHERRY AUNG Not Available Start: 01-09-2024 End: 01-09-2024 ambulatory SHERRY AUNG Not Available Start: 12-20-2023 End: 12-20-2023 ambulatory PREMA [facility] Start: 12-11-2023 End: 12-11-2023 [facility] Start: 12-08-2023 End: 12-08-2023 ambulatory SHERRY AUNG Not Available Start: 11-30-2023 End: 11-30-2023 ambulatory [facility] Start: 10-25-2023 End: 10-25-2023 ambulatory [facility] Infusion Chair 2 [facility] Comment on above: Crohn's disease of s mall and large intestines with complication ([facility]) (Primary Dx) Start: 10-24-2023 Telephone encounter Amanda Khan [facility] Start: 10-08-2023 End: 10-08-2023 Emergency department patient visit PREMA ABRAHAM [facility] Start: 08-30-2023 End: 08-30-2023 ambulatory [facility] Infusion Chair 1 [facility] Comment on above: Crohn's disease of s mall and large intestines with complication ([facility]) (Primary Dx) Start: 09-17-2019 End: 09-18-2019 Patient encounter procedure PREMA E ABRAHAM Facility:[facility] Start: 06-04-2018 End: 06-05-2018 Patient encounter procedure Trang Harrison Facility:Gastroenterol ogy [facility] Procedures Date Procedure Procedure Detail Performing Clinician Start: 06-17-2024 Urnls dip stick/tabl et rgnt non-auto w/o micrscp Sayra BROWN Work Phone: Start: 06-10-2024 Urnls dip stick/tabl et rgnt [...] in Cervix by Cyto stain Jenni Owen [facility] Start: 11-30-2023 Follow-up visit Follow-up SURESH DIAZ Start: 11-11-2021 Microscopic observat ion [Identifier] in Cervix by Cyto stain [facility] Start: 03-04-2021 Adult depression scr eening assessment [facility] Start: 04-14-2020 H/O: colostomy Colostomy status [facility] Start: 12-03-2019 H/O: ileostomy Ileostomy status [facility] Plan of Treatment Date Care Activity Detail Author Start: 02-05-2027 Screening for malign ant neoplasm of cervix [facility] Start: 06-11-2025 Adult BMI Screening Adult [facility] Screen ing [facility] Start: 06-11-2025 Tobacco Screening Tobacco Screening [facility] Start: 06-05-2025 Adult BMI Screening Adult [facility] Screen ing [facility] Start: 05-17-2025 End: 05-17-2025 US MFM with or without consult US MFM with or without consult Imaging Routine growth restriction antepartum Crohn's disease of both small and large intestine with intestinal obstruction (CMS-HCC) 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 Expected: 05/17/2025 (Approximate), Expires: 05[facility]17/2025 [facility] Work [facility]: Comment on above: Expected: 05/17/2025 (Approximate), Expires: 05/17/2025 Start: 05-15-2025 Tobacco Screening Tobacco Screening [facility] Start: 04-17-2025 Adult BMI Screening Adult BMI Screen ing [facility] Start: 11-11-2024 Screening for malign ant neoplasm of cervix Pap Smear [facility] Start: 10-24-2024 Adult BMI Screening Adult BMI Screen ing [facility] Start: 10-07-2024 Tobacco Screening Tobacco Screening [facility] Start: 08-30-2024 Adult BMI Screening Adult BMI Screen ing [facility] Start: 08-12-2024 End: 08-12-2024 Patient encounter procedure 08/12/2024 8:30 AM EST Office Visit [facility] [address] [place] [phone] Suresh Diaz MD [address] [facility] [address] [place] [address] [facility] Start: 08-01-2024 End: 08-01-2024 ambulatory 08/01/2024 9:30 AM EST Infusion [facility] [address] [place] [phone] [facility] Start: 06-24-2024 End: 06-24-2024 Patient encounter procedure 06/24/2024 2:40 PM EST Routine [facility] [address] [place] [phone] Sherry Horan DO [address] [place] [address] [facility] Start: 06-17-2024 End: 06-17-2024 Patient encounter procedure 06/17/2024 1:50 PM EST Routine [facility] [address] [place] [phone] Sayra Andrews PA [address] [place] [address] [facility] Start: 06-11-2024 End: 06-11-2024 Patient encounter procedure [facility] Start: 06-10-2024 End: 06-10-2025 Strep B DNA probe, amplification Strep B DNA probe, amplification Lab Routine Third trimester Expected: 06/10/2024 (Approximate), Expires: 06/10/2025 [facility] Work Phone: Comment on above: Expected: 06/10/2024 (Approximate), Expires: 06/10/2025 Start: 06-10-2024 End: 06-10-2024 Patient encounter procedure [facility] Comment on above: Arrived Start: 06-05-2024 End: 06-05-2024 ambulatory 06/05/2024 9:00 AM EST [facility] [address] [phone] [facility] Start: 06-03-2024 End: 06-03-2024 Patient encounter procedure [facility] Comment on above: Arrived Start: 05-30-2024 End: 05-30-2024 Patient encounter procedure 05/30/2024 3:00 PM EDT Appointment [facility] [address] [place] [address] [facility] Start: 05-16-2024 End: 05-16-2024 Patient encounter procedure [facility] Comment on above: Arrived Start: 05-10-2024 Tobacco Screening Tobacco Screening [facility] Start: 05-02-2024 End: 05-02-2024 Patient encounter procedure 05/02/2024 9:30 AM EDT Routine [facility] [address] [place] [phone] Sayra Andrews PA [address] [place] [address] Arrived [facility] Comment on above: Arrived Start: 03-31-2024 Influenza vaccination Influenza Vacc ine [facility] Start: 12-20-2023 End: 12-20-2023 ambulatory 12/20/2023 9:00 AM EDT Infusion [facility] [address] [facility] [place] [phone] [facility] Start: 11-30-2023 End: 11-30-2023 Patient encounter procedure 11/30/2023 9:30 AM EDT Office Visit [facility] [address] [facility] [place] [phone] Suresh Diaz MD [address] [facility] [address] [place] [address] [facility] Start: 10-25-2023 End: 10-25-2023 ambulatory 10/25/2023 9:00 AM EDT Infusion [facility] [address] [facility] [place] [phone] [facility] Start: 03-31-2023 Influenza vaccination Influenza Vacc ine [facility] Start: 03-04-2022 Depression Screening Depression Scre [facility] Start: 2012 DTaP,Tdap and Td Vaccines (1 - Tdap) DTaP,Tdap and Td Vaccines (1 - Tdap) [facility] Start: 2011 Adult BMI Follow Up Plan Adult BMI Follow Up Plan [facility] Start: 2005 Depression Screening Depression Scre ening [facility] End: 10-24-2024 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[employer]ifer[employer] Gold Lab Routine Crohn's disease of small and large intestines with complication (CMS-HCC) 1 Occurrences starting 10/25/2023 until 10/24/2024 [facility] Work Phone: Comment on above: 1 Occurrences starti ng 10/25/2023 until 10/24/2024 Payers Date Payer Category Payer Medicaid [id number] 2022 Medicaid [id number] 1995 Unknown [id number] 2.16.8 40.1.547609.3.579.2.196 1993 Unknown [id number] 2.16.84 0.1.496190.3.579.2.593 1993 Unknown [id number] 2.16.8 40.1.309396.3.579.2.1286 1993 Unknown [id number] 2.16.8 40.1.101252.3.579.2.1286 1993 Unknown [id number] 2.16.8 40.1.208655.3.579.2.1286 1993 Unknown [id number] 2.16.8 40.1.275722.3.579.2.1286 1993 Unknown [id number] 2.16.8 40.1.504911.3.579.2.1286 1993 Unknown [id number] 2.16.8 40.1.167514.3.579.2.1286 1993 Unknown [id number] 2.16.84 0.1.528247.3.579.2.1259 1993 Unknown [id number] 2.16.84 0.1.454769.3.579.2.1259 1993 Unknown [id number] 2.16.84 0.1.320262.3.579.2.1259 1993 Unknown [id number] 2.16.84 0.1.683413.3.579.2.1259 1993 Unknown [id number] 2.16.84 0.1.094753.3.579.2.1259 1993 Unknown [id number] 2.16.84 0.1.632115.3.579.2.1259 1993 Unknown [id number] 2.16.84 0.1.404509.3.579.2.1259 1993 Unknown [id number] 2.16.84 0.1.862585.3.579.2.1259 1993 Unknown [id number] 2.16.84 0.1.217674.3.579.2.1259 1993 Unknown [id number] 2.16.8 40.1.739172.3.579.2.1285 1993 Unknown [id number] 2.16.8 40.1.127135.3.579.2.1285 1993 Unknown [id number] 2.16.8 40.1.323994.3.579.2.1285 1993 Unknown [id number] 2.16.8 40.1.635366.3.579.2.1285 1993 Unknown [id number] 2.16.8 40.1.847805.3.579.2.1285 1993 Unknown [id number] 2.16.8 40.1.372046.3.579.2.1285 1993 Unknown [id number] 2.16.8 40.1.557904.3.579.2.1285 1993 Unknown [id number] 2.16.8 40.1.445190.3.579.2.1285 1993 Unknown [id number] 2.16.8 40.1.289456.3.579.2.1285 1993 Unknown [id number] 2.16.8 40.1.972294.3.579.2.1285 1993 Unknown [id number] 2.16.8 40.1.612153.3.579.2.1285 1993 Unknown [id number] 2.16.8 40.1.026782.3.579.2.1286 1993 Unknown [id number] 2.16.8 40.1.193065.3.579.2.1286 1993 Unknown [id number] 2.16.8 40.1.030867.3.579.2.128 1993 Unknown [id number] 2.16.8 40.1.858861.3.579.2.1286 1993 Unknown [id number] 2.16.8 40.1.505202.3.579.2.128 1993 Unknown [id number] 2.16.8 40.1.849110.3.579.2.6 1993 Unknown [id number] 2.16.8 40.1.888783.3.579.2.1285 1993 Unknown [id number] 2.16.8 40.1.091745.3.579.2.1286 1993 Unknown [id number] 2.16.8 40.1.535318.3.579.2.1286 1959 Self-pay [id number] 07-31-1799 Self-pay Social History Date Type Detail Facility Start: 07-05-2022 End: 12-08-2023 Tobacco smoking status MTIS Never smoked tobacco [facility] Start: 07-05-2022 End: 12-08-2023 Tobacco use and exposure Smokeless tobacco non-user [facility] Start: 05-10-2023 End: 10-08-2023 Alcohol intake Current drinker of alcohol (finding) [facility] Start: 05-10-2023 End: 12-08-2023 Alcohol intake [facility] Start: 08-06-2020 End: 12-08-2023 Social connection and isolation panel [facility] Do you belong to any clubs or organizations such as protestant groups, unions, fraternal or athletic groups, or school groups? No [facility] Are you now , , , , never or living with a partner? [facility] How often to you hav e a drink containing alcohol? 2-4 times a month [facility] Average Number of Drinks Not on file [facility] Do you feel stress - tense, restless, nervous, or anxious, or unable to sleep at night because your mind is troubled all the time - these days [OSQ] Only a little [facility] Start: 12-22-2021 Alcohol Comment socially [facility] Start: 1995 Sex Assigned At Not on file P [facility] Start: 05-02-2024 End: 06-17-2024 Alcoholic beverage intake Ex-drinker (finding) [facility] Start: 10-17-2023 [facility] Start: 10-16-2019 Sex Female (finding) [facility] Goals Date Patient Goal Desired Activity /State Personal health goal Comment on above: Formatting of this n ote might be different from the original. Evaluation of progress towards goal: Patient plans to return home with [facility] Clinical Notes 08-30-2023 to 06-17-2024 STEPHANIE Thorne - 06/17/2024 1:50 PM Suzy Snider RN - 06/11/2024 11:30 AM Joseline Roman MD - 06/11/2024 11:30 AM Eleazar Garza LPN - 06/10/2024 8:30 AM EST Note Date & Type Note Facility 06-17-2024 History of Presen t illness Narrative Reason for Appointment: Patient ID: Comfort Maldonado is a 28 y.o. female who presents for Routine Visit Patient presents today for Return OB appointment. MEDICATIONS Current Outpatient Medications Medication Instructions inFLIXimab-axxq (Avsola) 100 MG injection 5 mg/kg, Every 2 months Vit-Fe Fumarate-FA (GOODSENSE VITAMINS PO) 1 each, Daily valACYclovir (VALTREX) 500 mg, Oral, 2 times daily, AFTER 10 days then daily until delivery. ALLERGIES No Known Allergies PROBLEMS Active Ambulatory Problems Diagnosis Date Noted No Active Ambulatory Problems Resolved Ambulatory Problems Diagnosis Date Noted No Resolved Ambulatory Problems Past Medical History: Diagnosis Date Crohn's disease ([facility]/HCC) Genital warts Herpes Ovarian cyst HISTORY PAST MEDICAL HISTORY SOCIAL HISTORY Past Medical History: Diagnosis Date Crohn's disease ([facility]) Genital warts Herpes Ovarian cyst Social History [...] weight on file to calculate BMI. BP: 100/62 Patient's last menstrual period was 10/03/2023. ASSESSMENT & PLAN ICD-10-CM 1. 36 weeks gestation of Z3A.36 POCT urinalysis dipstick manually resulted 2. Third trimester Z34.93 POCT urinalysis dipstick manually resulted Return OB: Patient presents today for a routine obstetrics appointment. Patient is currently 36w6d . Patient states she is doing well but has complaints of being tired due to current . Patient has verbalizes frequent movement. labor precautions was discussed/given and patient was instructed to perform kick counts three times a day. growth restriction has resolved and schedule to Deliver via c section on 12-3 Orders Placed This Encounter Procedures POCT urinalysis dipstick manually resulted Follow Up: Patient is to return to office in 1 week for routine OB appointment. Documented by STEPHANIE Thorne on behalf of: STEPHANIE Thorne documented in this encounter [facility] 11-12-2024 History of Presen t illness Narrative Headache/epigastric [...] restriction has resolved. HISTORY OF PRESENT ILLNESS: Comfort Maldonado is a pleasant 28 y.o. G [...] and large intestine with intestinal obstruction (CMS-HCC) Ileostomy status (CMS-HCC) Colostomy status (CMS-HCC) Rectal stricture Crohn's disease of small and large intestines with complication (CMS-HCC) Cyst of right ovary Poor growth affecting [...] Past Medical History: Diagnosis Date Crohn's colitis ([facility]) Fibromyalgia, primary Herpes Ovarian cyst REVIEW OF [...] you for allowing me to participate in [facility] care. If there are any questions, please do not hesitate to call me. Sincerely, DEVYN ROMAN MD documented in this encounter [facility] 06-10-2024 History of Presen t illness Narrative [...] nursing note reviewed. Exam conducted with a back digger operator present. Vitals: There is no height [...] Sherry Horan DO documented in this encounter [facility] 06-05-2024 History of Presen t illness Narrative IV Infusion START time: 914 Patient here for Entyvio infusion. Patient denies any recent infections, open wounds, recent/future surgery, or insurance changes. IV started with 22g needle to Right AC by Renuka Middleton RN x1 attempt. Patient tolerated well. Remicade Lot# [id number] Exp- 08/27/2026 Time out performed prior to medication administration. Name, , medication(s) verified IV Infusion END time: 1124 patient infusion complete. IV discontinued, catheter intact, vitals WNL. Patient tolerated infusion well PIV flushed with 10 ml of 0.9% NS after medication infused documented in this encounter [facility] 06-03-2024 History of Presen t illness Narrative [...] nursing note reviewed. Exam conducted with a back digger operator present. Vitals: There is no height [...] 1 weeks for routine OB appointment with Jayy's consent to be signed. Documented by Paddy Garza LPN on behalf of: Sherry Horan DO documented in this encounter [facility] 05-16-2024 History of Presen t illness [...] nursing note reviewed. Exam conducted with a back digger operator present. Vitals: There is no height [...] Estimated Date of Delivery: 07/09/24. Discussed recent [facility] appointment with patient and delivery due to SGA & Crohn's Disease. Nursing will obtain office note from MFM appointment yesterday. Patient given order to have NST/BPP done locally at [facility]. Documented by Paddy Garza LPN on behalf of: Sherry Horan DO documented in this encounter [facility] 05-15-2024 History of Presen t [...] scheduled appointments documented in this encounter [facility] 05-02-2024 History of Presen t illness [...] of: STEPHANIE Thorne documented in this encounter [facility] 10-25-2023 History of Presen t illness Narrative 0900 Patient here for Avsola infusion. Patient denies any recent infections, open wounds, recent/future surgery, or insurance changes . IV started with 22g needle to right AC by paddy gill x 1 attempt . Patient tolerated well. Avsola x 2 vials, lot# [id number], exp date Avsola x 1 vial, lot# [id number], exp date 02/27/2027 Time out performed with [...] of info given. [facility] Miscellaneous Notes Formattin g of this note might be different from the original. Patient currently receiving Avsola 5mg/kg every 8 weeks. 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 Prior auth request forms completed for Remicade 5mg/kg to be given every 56 days, faxed to [phone] Remicade approved for 5mg/kg (400mg) for 7 visits from 10/25/2023-10/23/2024. Auth # [id number] Referral placed. Therapy plan updated. Flowsheet updated. [facility] er Note Patient currently receiving Avsola 5mg/kg every 8 weeks. 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 Prior auth request forms completed for Remicade 5mg/kg to be given every 56 days, faxed to [phone] [facility] 10-24-2023 Telephone encount er Note Remicade approved for 5mg/kg (400mg) for 7 visits from 10/25/2023-10/23/2024. Auth # [id number] Referral placed. Therapy plan updated. Flowsheet updated. [facility] 08-30-2023 History of Presen t illness [...] complication (CMS-HCC)- Primary [facility] Diagnosis Crohn's disease of small and large intestines with complication (CMS-HCC)- Primary [facility] Diagnosis 30 weeks gestation of - Primary Third trimester state, incidental documented in this encounter [facility]* Diagnosis Crohn's disease of both small and large intestine with intestinal obstruction (CMS-HCC)- Primary growth restriction antepartum growth restriction antepartum- Primary [facility] Diagnosis Crohn's disease of both small and large intestine with intestinal obstruction (CMS-HCC)- Primary growth restriction antepartum [facility] Diagnosis 32 [...] weeks gestation of documented [facility]* Diagnosis Crohn's disease of small and large intestines with complication (CMS-HCC)- Primary [facility]* Diagnosis Third trimester state, incidental 35 weeks gestation of Herpes Herpes simplex without mention of complication documented [facility]* Diagnosis Crohn's disease of both small and large intestine with intestinal obstruction (CMS-HCC)- Primary [facility] Diagnosis 36 weeks gestation of Third trimester state, incidental documented in this encounter [facility] HealthcareInstructionsNot on filedocumented in this [facility] System[facility]ructionsNot on filedocumented in [facility] SystemInstructionsNot on filedocumented in this encounter[facility] SystemInstructionsNot on filedocumented in [facility] InstructionsNot on filedocumented in [facility] InstructionsNot on filedocumented in this [facility] Summary Purpose Family History [...] section and content) DATE CREATED AUTHOR 07/08/2018 [facility] DATE CREATED AUTHOR AUTHOR'S ORGANIZ ATION 09/20/2019 [facility] DATE CREATED AUTHOR AUTHOR'S ORGANIZ ATION 12/18/2019 [facility] DATE CREATED AUTHOR AUTHOR'S ORGANIZ ATION 04/03/2024 [facility] DATE CREATED AUTHOR AUTHOR'S ORGANIZ ATION 06/06/2024 [facility] DATE CREATED AUTHOR AUTHOR'S ORGANIZ ATION 06/11/2024 [facility] DATE CREATED AUTHOR AUTHOR'S ORGANIZ ATION 06/13/2024 [facility] Reason for Visit (unrecogniz ed section and content) Reason Comments Outpatient Infusion Avsola Specialty Diagnoses / Procedures Referred By Theodore kohli Referred To Contact Gastroenterology Diagnoses Crohn's disease of both small and large intestine with unspecified complications Renflexis 400mg q8 weeks, 7 visits, 02.02.23 - 02.02.24, HK/CF, Crohn's Procedures INJECTION, INFLIXIMAB-AXXQ, BIOSIMILAR, (AVSOLA), 10 MG INFUSION Prema Abraham MD [address] [place] [address] [address] Referral ID Status Reason Start Date Expiration Date V isits Requested Visits Authorized [id number] Authorized 02/02/2023 02/02/2024 7 7 Reason Comments Outpatient Infusion Avsola Reason Comments Routine Visit Reason Comments add on NST for [facility]GR Specialty Diagnoses / Procedures Referred By Theodore kohli Referred To Contact Maternal and Medicine Diagnoses growth restriction antepartum Procedures nonstress test - Maternal Medicine Devyn Roman MD [address], [address] [place] [address] Phone: tel: fax: Maternal- Medicine at [facility] [address] [place] [address] Phone: tel: fax: Referral ID Status Reason Start Date Expiration Date V isits Requested Visits Authorized [id number] Pending Review 05/15/2024 05/15/2025 1 1 Reason Comments Outpatient Infusion Remicade Specialty Diagnoses / Procedures Referred By Theodore kohli Referred To Contact Gastroenterology Diagnoses Crohn's disease of both small and large intestine with unspecified complications Remicade 5mg/kg every 56 days ( 400 mg) Auth'd from 10/25/2023-10/23/2024 for 7 Visits, HK/CF, Crohn's Procedures RI INFLIXIMAB INJECTION INFUSION Prema Abraham MD [address] [place] [id number] Phone: tel: fax: [facility] [place] [address] [address] Phone: tel: fax: Referral ID Status Reason Start Date Expiration Date V isits Requested Visits Authorized [id number] Authorized 12/20/2023 12/19/2024 7 7 Reason Comments growth restriction history of bowel resection Chrohns disease Care Teams (unrecognized sec tion and content) Dormitory Keeper Relationship Specialty Start Date End Date Prema Abraham MD [address] [place] [address] PCP - General Family Medicine 12/17/19 Dormitory Keeper Relationship Specialty Start Date End Date Prema Abraham MD [address] [place] [address] PCP - General Family Medicine 10/08/23 Dormitory Keeper Relationship Specialty Start Date End Date Prema Abraham MD [address] [place], [place] [phone] PCP - General Family Medicine 10/08/23 Dormitory Keeper Relationship Specialty Start Date End Date Prema Abraham MD [address] [place], [place] [phone] PCP - General Family Medicine 02/29/24 Dormitory Keeper Relationship Specialty Start Date End Date Prema Abraham MD [address] [place] [id number] PCP - General Family Medicine 02/29/24 Dormitory Keeper Relationship Specialty [place] [address] [place] [id number] PCP - General Family Medicine 02/29/24 Dormitory Keeper Relationship Specialty Start Date End Date Prema Abraham MD [address] [place] [address] PCP - General Family Medicine 02/29/24 Dormitory Keeper Relationship Specialty [place] [address] [place] [address] PCP - General Family Medicine 02/29/24 FOR [...] BE BASED ON THE PRIMARY CLINICAL RECORDS. [employer] [facility]. provides no warranty or guarantee of the accuracy or completeness of information in this document.
[2024-06-18 09:19] VITALS: BP 125/82; PULSE 96
== END 2024-06-18 09:50 | disposition home or self-care (01) ==
LOC: US 08:52 → FBC 08:56
PROVIDERS: PCP Family Medicine; Visit Provider Obstetrics & Gynecology
DX: O99.613 Diseases of the digestive system complicating pregnancy, third trimester (principal); Z3A.37 37 weeks gestation of pregnancy; K50.919 Crohn's disease, unspecified, with unspecified complications
CPT/HCPCS: 76818

== ENCOUNTER 2024-06-21 08:23 | Outpatient (OUT) | payer MEDICAID, SELFPAY ==
--- OUTSIDE RECORDS SUMMARY | 2024-06-21 00:34 | XMS_ITS | CCD ---
Author Organization [facility] Care Team Providers Care Coater Smoking Pipe Name Role Phone Trang Harrison Unavailable Unavailable Prmea Abraham Unavailable Unavaila PREMA Mahan Admitting Unavailable PREMA ABRHAAM Attending Unavailable PREMA ABRAHAM Primary Care Unavailable ALLISON TOWNSEND V Consulting Unavailable PREMA ABRAHAM Consulting Unavailable Prema Abraham MD Primary Care Provider Prema Abraham MD Primary Care Provider [phone] PREMA ABRAHAM Primary Care Unavailable SHERRY HORAN [...] Primary Care Unavailable SHERRY HORAN Referring Unavailable ABRAHAM, PREMA E Primary Care [...] SHERRY Attending Unavailable JULIANA, SAYRA Attending Unavailable Medications Current Medications Medication Drug [...] 10 tablet 0 10/08/2023 Active Vit-Fe Fumarate-FA (Kitchensurfing VITAMINS PO) (14 sources) Start: 11-16-2023 take 1 dose by mouth once daily Vit-Fe Fumarate-FA (Kitchensurfing VITAMINS PO) 1 each Daily 11/16/2023 Active [...] Negative Negative - 4(70) +++ mg/dL [facility] Blood, UA Positive Negative - 50 Kal/mcL [facility] Comment on above: trace-intact Clarity, UA Clear [facility] Color, UA Yellow [facility] Glucose, UA Negative Negative - 2000(110) ++++ mg/dL [facility] Interpretation and review of laboratory results Abnormal [facility] Ketones, UA Positive Negative - 160(16) ++++ mg/dL [facility] Comment on above: trace Leukocytes, UA Negative Negative - 500+++ Sandra/mcL [facility] Nitrite, UA Negative Negative - Positive [facility] pH, UA 5.5 5 - 9 [facility] Protein, UA Negative Negative - 1999(20) ++++ mg/dL [facility] Spec Grav, UA 1.01 1 - 1.03 [facility] Urobilinogen, UA 0.2 0.2 - 12 mg/dL [facility] Urinalysis macro (dipstick) panel (U)on 06-10-2024 Bilirubin, UA Negative Negative - 4(70) +++ mg/dL [facility] Blood, UA Positive Negative - 50 Kal/mcL [facility] Clarity, UA Clear [facility] Color, UA Yellow [facility] Glucose, UA Negative Negative - 1999(110) ++++ mg/dL [facility] Interpretation and review of laboratory results Abnormal [facility] Ketones, UA Negative Negative - 160(16) ++++ mg/dL [facility] Leukocytes, UA Negative Negative - 500+++ Sandra/mcL [facility] Nitrite, UA Negative Negative - Positive [facility] pH, UA 6 5 - 9 [facility] Protein, UA Negative Negative - 1999(20) ++++ mg/dL [facility] Spec Grav, UA 1.02 1 - 1.03 [facility] Urobilinogen, UA 1.0 0.2 - 12 mg/dL [facility] Urinalysis macro (dipstick) panel (U)on 06-03-2024 Bilirubin, UA Negative Negative - 4(70) +++ mg/dL [facility] Blood, UA Negative Negative - 50 Kal/mcL [facility] Clarity, UA Clear [facility] Color, UA Yellow [facility] Glucose, UA Negative Negative - 1999(110) ++++ mg/dL [facility] Interpretation and review of laboratory results Normal [facility] Ketones, UA Negative Negative - 160(16) ++++ mg/dL [facility] Leukocytes, UA Negative Negative - 500+++ Sandra/mcL [facility] Nitrite, UA Negative Negative - Positive [facility] pH, UA 5.5 5 - 9 [facility] Protein, UA Negative Negative - 1999(20) ++++ mg/dL [facility] Spec Grav, UA 1.03 1 - 1.03 [facility] Urobilinogen, UA 0.2 0.2 - 12 mg/dL [facility] Urinalysis macro (dipstick) panel (U)on 05-16-2024 Bilirubin, UA Negative Negative - 4(70) +++ mg/dL [facility] Blood, UA Positive Negative - 50 Kal/mcL [facility] Comment on above: trace-intact Clarity, UA Clear [facility] Color, UA Yellow [facility] Glucose, UA Negative Negative - 1999(110) ++++ mg/dL [facility] Interpretation and review of laboratory results Abnormal [facility] Ketones, UA Negative Negative - 160(16) ++++ mg/dL [facility] Leukocytes, UA Negative Negative - 500+++ Sandra/mcL [facility] Nitrite, UA Negative Negative - Positive [facility] pH, UA 6 5 - 9 [facility] Protein, UA Negative Negative - 1999(20) ++++ mg/dL [facility] Spec Grav, UA 1.025 1 - 1.03 [facility] Urobilinogen, UA 0.2 0.2 - 12 mg/dL [facility] No Panel Informationon 05-15 Patient Name: Kishor Maldonado Patient : 1995 NST Objective Findings: Variability: Moderate Decelerations: None Accelerations: Yes Acoustic Stimulator: No Baseline: 130 BPM Uterine Irritability: Yes Contractions: Not present Comments: Uterine irritability noted, intercourse this morning. [facility] instructions/handout and labor precautions reviewed. NST Interpretation: Nonstress Test Interpretation: Reactive (Devyn Roman MD) NST performed by: Aislinn Richardson RN 05/15/2024 4:30 PM [facility] M. tuberculosis stim IFN-g p venkat (Bld)on 03-29-2024 Mitogen minus Nil Result 1.22 IU/mL Normal [facility] Comment on above: Performed By: #### C MP, 1989-, HA1C, CBCA, 5196-1, 14083-7, 72239-3, 2132-9, 15452-2, 8014-3, 62336-1 #### [facility] ([id number]) [address] [facility], [address] [place] [address] Nil Result 0.02 IU/mL Normal [facility] Comment on above: Result Comment: NOTE Test Performed by: [facility] [address] [place] [address] Automotive Sales Professional: Donnie Sanon Ph.D.; CLIA# [id number] Performed By: #### C AGNES, 1989-11, HA1C, CBCA, 5196-1, 67832-3, 66028-3, 2131-9, 29653-5, 8014-3, 23144-8 #### [facility] ([id number]) [address] [place] [address], [address] [place] [address] QuantiFERON-Tb Gold Plus Result Negative Normal Negative [facility] Comment on above: Result Comment: NOTE [...] Diagnosis of Tuberculosis in Adults and Children [Messiinsyissel GOMEZ et. al. Clin. Infect. Dis. 2017;64(2):111-115]. The reference range for the 'TB1 Ag minus Nil Result' and 'TB2 Ag minus Nil Result' is an Interferon-gamma level <0.35 IU/mL. Performed By: #### C AGNES, 1989-11, HA1C, CBCA, 5196-1, 70322-4, 51003-8, 2131-9, 13186-7, 8014-3, 29698-8 #### [facility] ([id number]) [address] [facility], [address] [place] [address] TB1 Ag minus Nil Result NEG 0.01 Normal [facility] Comment on above: Performed By: #### C AGNES, 1989-11, HA1C, CBCA, 5196-1, 02149-6, 57833-8, 2131-9, 55476-8, 8014-3, 80162-8 #### [facility] ([id number]) [address] [facility], [address] [place] [address] TB2 Ag minus Nil Result NEG 0.01 Normal [facility] Comment on above: Performed By: #### C AGNES, 1989-11, HA1C, CBCA, 5196-1, 06939-5, 02087-6, 2132-9, 42712-9, 8014-3, 27606-1 #### [facility] ([id number]) [address], [address] [place] [address] CBC AND AUTO DIFFon 12-11-19 24 ABSOLUTE BASOPHIL 0.0 X10E9/L Normal 0.0-0.2 [facility] Comment on above: Performed By: #### Clyde ALARCON, 1989-11, HA1C, CBCA, 5196-1, 09775-3, 55866-0, 2-9, 35297-0, 8014-3, 42913-7 #### [facility] ([id number]) [address], [address] [place] [address] ABSOLUTE NEUTROPHIL 5.5 X10E9/L Normal 1.5-6.6 [facility] Comment on above: Performed By: #### Clyde ALARCON, 1989-11, HA1C, CBCA, 5196-1, 54154-5, 93028-9, 2132-9, 20934-2, 8014-3, 89290-0 #### [facility] ([id number]) [address], [address] [place] [address] Basophils/100 WBC (Bld) 0.3 % Normal [facility] Comment on above: Performed By: #### Clyde ALARCON, 1989-11, HA1C, CBCA, 5196-1, 08358-5, 77605-8, 2132-9, 67547-8, 8014-3, 49995-5 #### [facility] ([id number]) [address] [address] [place] [address] Eosinophils (Bld) [#/Vol] 0.2 10*3/uL Normal 0.0-0.4 [facility] Comment on above: Performed By: #### C AGNES, 1989-11, HA1C, CBCA, 5196-1, 41671-2, 79980-4, 2132-9, 84285-6, 8014-3, 27007-9 #### [facility] ([id number]) [address], [address] [place] [address] Eosinophils/100 WBC (Bld) 2.6 % Normal [facility] Comment on above: Performed By: #### C AGNES, 1989-11, HA1C, CBCA, 5196-1, 96967-8, 97148-9, 2131-9, 75278-6, 8014-3, 09044-2 #### [facility] ([id number]) [address], [address] [place] [address] Erythrocyte distribution width (RBC) [Ratio] 13.3 % Normal 11.5-15.0 [facility] Comment on above: Performed By: #### C AGNES, 1989-11, HA1C, CBCA, 5196-1, 60409-5, 53736-0, 2131-9, 24625-2, 8014-3, 36194-0 #### [facility] ([id number]) [address], [address] [place] [address] Hematocrit (Bld) [Volume fraction] 40.5 % Normal 35-47 [facility] Comment on above: Performed By: #### Clyde ALARCON, 1989-11, HA1C, CBCA, 5196-1, 30720-9, 76397-4, 2132-9, 88364-9, 8014-3, 64528-9 #### [facility] ([id number]) [address], [address] [place] [address] Hemoglobin (Bld) [Mass/Vol] 14.2 g/dL Normal 11.7-15.5 [facility] Comment on above: Performed By: #### Clyde ALARCON, 1989-11, HA1C, CBCA, 5196-1, 24808-4, 91545-3, 2132-9, 37111-7, 8014-3, 43533-9 #### [facility] ([id number]) [address], [address] [place] [address] Lymphocytes (Bld) [#/Vol] 1.3 10*3/uL Normal 1.0-3.5 [facility] Comment on above: Performed By: #### C AGNES, 1989-11, HA1C, CBCA, 5196-1, 14849-7, 21180-9, 2131-9, 79833-6, 8014-3, 72065-9 #### [facility] ([id number]) [address], [address] [place] [address] Lymphocytes/100 WBC (Bld) 18.2 % Normal [facility] Comment on above: Performed By: #### C AGNES, 1989-11, HA1C, CBCA, 5196-1, 20716-8, 39134-3, 2131-9, 11470-0, 8014-3, 40356-6 #### [facility] ([id number]) [address], [address] [place] [address] MCH (RBC) [Entitic mass] 30.7 pg Normal 27-34 [facility] Comment on above: Performed By: #### C AGNES, 1989-11, HA1C, CBCA, 5196-1, 95249-7, 13747-5, 2131-9, 19938-3, 8014-3, 32990-8 #### [facility] ([id number]) [address], [address] [place] [address] MCHC (RBC) [Mass/Vol] 35.2 g/dL Normal 32-36 [facility] Comment on above: Performed By: #### C AGNES, 1989-11, HA1C, CBCA, 5196-1, 51061-3, 99794-4, 2131-9, 39722-6, 8014-3, 19548-0 #### [facility] ([id number]) [address], [address] [place] [address] MCV (RBC) [Entitic vol] 87 fL Normal 80-100 [facility] Comment on above: Performed By: #### C AGNES, 1989-11, HA1C, CBCA, 5196-1, 60142-0, 49463-3, 2131-9, 66618-2, 8014-3, 92307-7 #### [facility] ([id number]) [address], [address] [place] [address] Monocytes (Bld) [#/Vol] 0.4 10*3/uL Normal 0-0.9 [facility] Comment on above: Performed By: #### C AGNES, 1989-11, HA1C, CBCA, 5196-1, 06266-6, 74085-1, 2131-9, 95963-1, 8014-3, 19501-9 #### [facility] ([id number]) [address], [address] [place] [address] Monocytes/100 WBC (Bld) 5.1 % Normal [facility] Comment on above: Performed By: #### C AGNES, 1989-11, HA1C, CBCA, 5196-1, 23753-6, 96737-9, 2131-9, 50643-2, 8014-3, 28331-5 #### [facility] ([id number]) [address], [address] [place] [address] Neutrophils/100 WBC (Bld) 73.8 % Normal [facility] Comment on above: Performed By: #### C AGNES, 1989-11, HA1C, CBCA, 5196-1, 67165-8, 70021-2, 2131-9, 15951-5, 8014-3, 18022-9 #### [facility] ([id number]) [address], [address] [place] [address] Platelet mean volume (Bld) [Entitic vol] 9.1 fL Normal 7-12 [facility] Comment on above: Performed By: #### C AGNES, 1989-11, HA1C, CBCA, 5196-1, 28251-3, 39974-2, 2132-9, 05436-1, 8014-3, 89125-2 #### [facility] ([id number]) [address], [address] [place] [address] Platelets (Bld) [#/Vol] 254 10*3/uL Normal 150-450 [facility] Comment on above: Performed By: #### C AGNES, 1989-11, HA1C, CBCA, 5196-1, 83890-0, 09990-4, 2132-9, 09642-6, 8014-3, 64064-8 #### [facility] ([id number]) [address] [facility], [address] [place] [address] RBC COUNT 4.63 X10E12/L Normal 3.80-5.20 [facility] Comment on above: Performed By: #### Clyde ALARCON, 1989-11, HA1C, CBCA, 5196-1, 03763-7, 33469-9, 2132-9, 30109-7, 8014-3, 24923-5 #### [facility] ([id number]) [address], [address] [place] [address] WBC (Bld) [#/Vol] 7.4 10*3/uL Normal 4.0-11.0 [facility] Comment on above: Performed By: #### Clyde ALARCON, 1989-11, HA1C, CBCA, 5196-1, 76921-3, 71820-6, 2132-9, 34820-1, 8014-3, 95858-5 #### [facility] ([id number]) [address] [facility], [address] [place] [address] COMPREHENSIVE METABOLIC PANE Jesse 12-11-2023 Albumin [Mass/Vol] 4.3 g/dL Normal 3.2-5.3 [facility] Comment on above: Performed By: #### C AGNES, 1989-11, HA1C, CBCA, 5196-1, 73053-1, 24749-8, 2132-9, 11783-0, 8014-3, 59530-2 #### [facility] ([id number]) [address], [address] [place] [address] ALP [Catalytic activity/Vol] 48 U/L Normal 39-130 [facility] Comment on above: Performed By: #### C AGNES, 1989-11, HA1C, CBCA, 5196-1, 88227-8, 60392-0, 2-9, 96845-5, 8014-3, 14707-2 #### [facility] ([id number]) [address], [address] [place] [address] ALT [Catalytic activity/Vol] 13 U/L Normal 0-31 [facility] Comment on above: Performed By: #### C AGNES, 1989-11, HA1C, CBCA, 5196-1, 26591-3, 25410-7, 2-9, 04248-2, 8014-3, 81498-6 #### [facility] ([id number]) [address], [address] [place] [address] Anion gap [Moles/Vol] 10 mmol/L Normal 5-15 [facility] Comment on above: Performed By: #### C AGNES, 1989-11, HA1C, CBCA, 5196-1, 09832-8, 37742-6, 2132-9, 58541-0, 8014-3, 73801-1 #### [facility] ([id number]) [address], [address] [place] [address] AST [Catalytic activity/Vol] 17 U/L Normal 0-41 [facility] Comment on above: Performed By: #### C AGNES, 1989-11, HA1C, CBCA, 5196-1, 63630-7, 68899-1, 2132-9, 93430-4, 8014-3, 52188-2 #### [facility] ([id number]) [address], [address] [place] [address] Bilirubin [Mass/Vol] 0.7 mg/dL Normal 0.3-1.2 [facility] Comment on above: Performed By: #### C AGNES, 1989-11, HA1C, CBCA, 5196-1, 88439-3, 24191-5, 2131-9, 43035-4, 8014-3, 11256-8 #### [facility] ([id number]) [address], [address] [place] [address] Calcium [Mass/Vol] 9.5 mg/dL Normal 8.5-10.5 [facility] Comment on above: Performed By: #### C AGNES, 1989-11, HA1C, CBCA, 5196-1, 28118-9, 99641-0, 2131-9, 43520-5, 8014-3, 35648-4 #### [facility] ([id number]) [address], [address] [place] [address] Chloride [Moles/Vol] 104 mmol/L Normal 98-109 [facility] Comment on above: Performed By: #### C AGNES, 1989-11, HA1C, CBCA, 5196-1, 02043-4, 43148-1, 2131-9, 45278-4, 8014-3, 31236-4 #### [facility] ([id number]) [address], [address] [place] [address] CO2 [Moles/Vol] 23 mmol/L Normal 22-32 [facility] Comment on above: Performed By: #### C AGNES, 1989-11, HA1C, CBCA, 5196-1, 29033-3, 84343-4, 2132-9, 71139-6, 8014-3, 73220-0 #### [facility] ([id number]) [address] [facility], [address] [place] [address] Creatinine [Mass/Vol] 0.49 mg/dL Normal 0.40-1.00 [facility] Comment on above: Result Comment: METH OD TRACEABLE TO IDMS STANDARD Performed By: #### C AGNES, 1989-11, HA1C, CBCA, 5196-1, 21701-3, 79680-0, 9, 57665-9, 8014-3, 77509-1 #### [facility] ([id number]) [address] [facility], [address] [address] eGFR (CKD-EPI) NON-RACE DEPENDENT >90 Normal >59 [facility] Comment on above: Result Comment: Reported eGFR is based on the CKD-EPI 2020 equation that does not use a race coefficient. Performed By: #### C AGNES, 1989-11, HA1C, CBCA, 5196-1, 94482-2, 81104-0, 9, 70311-4, 8014-3, 80241-5 #### [facility] ([id number]) [address] [facility], [address] [place] [address] Glucose [Mass/Vol] 92 mg/dL Normal 65-99 [facility] Comment on above: Performed By: #### C AGNES, 1989-11, HA1C, CBCA, 5196-1, 23831-0, 81735-4, 9, 09565-7, 8014-3, 93742-0 #### [facility] ([id number]) [address] [facility], [address] [place] [address] Potassium [Moles/Vol] 4.1 mmol/L Normal 3.5-5.0 [facility] Comment on above: Performed By: #### C AGNES, 1989-11, HA1C, CBCA, 5196-1, 80487-5, 55290-4, 2132-9, 31918-7, 8014-3, 79869-6 #### [facility] ([id number]) [address], [address] [place] [address] Protein [Mass/Vol] 7.5 g/dL Normal 6.0-8.0 [facility] Comment on above: Performed By: #### C AGNES, 1989-11, HA1C, CBCA, 5196-1, 62729-8, 28453-0, 2131-9, 48010-5, 8014-3, 96966-5 #### [facility] ([id number]) [address], [address] [place] [address] Sodium [Moles/Vol] 137 mmol/L Normal 134-146 [facility] Comment on above: Performed By: #### C AGNES, 1989-11, HA1C, CBCA, 5196-1, 65366-2, 02007-5, 2131-9, 99842-2, 8014-3, 92077-0 #### [facility] ([id number]) [address], [address] [place] [address] Urea nitrogen [Mass/Vol] 6 mg/dL Normal 5-23 [facility] Comment on above: Performed By: #### C AGNES, 1989-11, HA1C, CBCA, 5196-1, 23676-3, 56853-1, 2131-9, 94131-0, 8014-3, 34183-7 #### [facility] ([id number]) [address], [address] [place] [address] CRP [Mass/Vol]on 12-11-2023 C REACTIVE PROTEIN 0.5 mg/dL Normal 0.000-0.744 [facility] Comment on above: Performed By: #### Clyde ALARCON, 1989-11, HA1C, CBCA, 5196-1, 09844-2, 78413-0, 2131-9, 69697-5, 8014-3, 76491-4 #### [facility] ([id number]) [address], [address] [place] [address] HBV surface Ag IA Qlon 12-10 HEPATITIS B SURF AG Negative Normal NEG [facility] Comment on above: Performed By: #### C AGNES, 1989-11, HA1C, CBCA, 5196-1, 87682-6, 24258-3, 2132-9, 47325-8, 8014-3, 52470-4 #### [facility] ([id number]) [address] [facility], [address] [place] [address] HCV Ab IA Qlon 12-11-2023 ANTI HCV W/PCR REFLX Non-Reactive Normal NRCT Pr [facility] Comment on above: Result Comment: If recent infection suspected, recommend repeat testing (>2 months). Kdcstg-ej-fxddbx ratio is <0.80. Performed By: #### C AGNES, 1989-11, HA1C, CBCA, 5196-1, 57248-6, 11859-4, 2-9, 30619-3, 8014-3, 68898-4 #### [facility] ([id number]) [address] [facility], [address] [place] [address] HGB A1C (GLYCO-HGB)on 2023 Glucose [Mass/Vol] 103 mg/dL Normal [facility] Comment on above: Performed By: #### C AGNES, 1989-11, HA1C, CBCA, 5196-1, 56827-5, 59786-2, 2-9, 69389-4, 8014-3, 66319-8 #### [facility] ([id number]) [address] [facility], [address] [place] [address] HbA1c (Bld) [Mass fraction] 5.2 % Normal 4.4-5.6 [facility] Comment on above: Result Comment: NOTE ADA Guidelines Result HgbA1c Normal : less than 5.7 % Prediabetes : 5.7 % to 6.4 % Diabetes : > 6.4 % Use with caution in patients with abnormal hemoglobin variants as the half-life of red blood cells and in vivo glycation rates are affected. Performed By: #### C AGNES, 1989-11, HA1C, CBCA, 5196-1, 48244-1, 52891-6, 2132-9, 79238-8, 8014-3, 20811-7 #### [facility] ([id number]) [address] [place] [address], [address] [place] [address] HIV 1+2 Ab+HIV1 p24 Ag IA Ql on 12-11-2023 HIV 1 and 2 Ab/Ag Screen Non-Reactive Normal NRCT [facility] Comment on above: Result Comment: This [...] #### C AGNES, 1989-11, HA1C, CBCA, 5196-1, 25053-2, 95254-5, 2131-9, 58210-4, 8014-3, 60046-0 #### [facility] ([id number]) [address] [place] [address], [address] [place] [address] Rubella virus IgG Qn (S)on 0 12-11-2023 RUBELLA IgG 30 IU/mL Normal [facility] Comment on above: Result Comment: Interpretation-------- <8 NEGATIVE-considered Not Immune 8-9 EQUIVOCAL-consider retesting with new specimen >9 POSITIVE-considered Immune Performed By: #### C AGNES, 1989-11, HA1C, CBCA, 5196-1, 33050-0, 59555-8, 2131-9, 73718-5, 8014-3, 38670-8 #### [facility] ([id number]) [address], [address] [place] [address] T. pallidum IgG+IgM IA Ql (S )on 12-11-2023 Syphilis Total <0.2 Normal 0.0-0.8 [facility] Comment on above: Result Comment: NON REACTIVE No serologic evidence of infection to Treponema pallidum (syphilis). Repeat testing may be considered in patients with suspected acute or primary syphilis in 2 to 4 weeks. Performed By: #### C AGNES, 1989-11, HA1C, CBCA, 5196-1, 42167-2, 06990-7, 2-9, 08014-1, 8014-3, 90552-8 #### [facility] ([id number]) [address] [facility], [address] [place] [address] VITAMIN B12on 12-11-2023 Cobalamin (Vitamin B12) [Mass/Vol] 142 pg/mL Low 180-914 [facility] Comment on above: Performed By: #### C AGNES, 1989-11, HA1C, CBCA, 5196-1, 40491-6, 54854-1, 2131-9, 32068-5, 8014-3, 91138-7 #### [facility] ([id number]) [address], [address] [place] [address] Vitamin D+Metabolites [Mass/ Vol]on 12-11-2023 VITAMIN D 25 HYD TOT 21.8 ng/mL Low 30-100 [facility] Comment on above: Result Comment: Vitamin D status 25 [place] Vitamin D Deficiency <20 ng/mL Insufficiency 20-29 ng/mL Sufficiency 30-100 ng/mL Toxicity >100 ng/mL NOTE: A pediatric reference range has not been established by the shop tech of this kit. The [place] [employer] recommends a Vitamin D level of = or >20ng/mL in infants and children. Performed By: #### C MP, 1990-5, HA1C, CBCA, 5196-1, 44422-5, 15018-0, 2132-9, 10192-6, 8014-3, 70180-5 #### [facility] ([id number]) [address] [place] [address], [address] [place] [address] SARS/FLU A+B/RSV by NAAT/Mol ecularon 10-08-2023 SARS/FLU [...] operators who are performing tests using either GeneDoocuments DX or GeneCheckiO systems and is limited to laboratories that [...] repeat. Fact Sheet for Healthcare Providers: https://www.fda.gov/media /708777/download Fact Sheet for Patients: https://www.fda.gov/media /070077/download Normal [facility] Comment on above: Performed By: #### C OVFLR #### [facility] ([id number]) [address] [place] [address], [place] [address] Consultation Noteon 12-18-19 Consultation Note [id number]:12 7 Normal [facility] Ambulatory Patient Education on 06-04-2018 Ambulatory Patient Education Patient Education MaterialsName: Comfort Maldonado Current Date: 06/04/2018 11:43:12 [place] 1995 following sheet(s) are the Patient Education Leaflets for Comfort Maldonado Normal [facility] Gastroenterology Office/Clin ic Noteon 06-04-2018 Gastroenterology [...] her being referred to Dr. Bowers at [facility] in [place]. She states that she had a colonoscopy [...] Endoscopy history: Colonoscopy done on 04/17/2018 at [facility] Constitutional: 45 pound weight loss since [...] available. No qualifying data available.Electronically signed by _Chidi MD, Trang N 06/05/18 15:52 ESTOSH records: Colonoscopy 04/17/2018 Crohn's [...] with CD in this settingElectronically signed by _Hunter KHAN Trang N 06/05/18 15:58 EST Normal [facility] Vital Signs Date Time Vital Sign Value Performing Clinician Facility 06-17-2024 14:18-0500 Body weight 73.21 kg Sayra BROWN Work Phone: [facility] 06-17-2024 14:18-0500 Diastolic blood pressure 62 mm[Hg] Sayra BROWN Work Phone: [facility] 06-17-2024 14:18-0500 Systolic blood pressure 100 mm[Hg] Sayra BROWN Work Phone: [facility] 06-11-2024 10:48-0500 Body height 155 cm Devyn Roman MD Work Phone: [facility] 06-11-2024 10:48-0500 Body mass index (BMI) [Ratio] 29.98 kg/m2 Devyn Roman MD Work Phone: [facility] 06-11-2024 10:48-0500 Body weight 72.03 kg Devyn Roman MD Work Phone: [facility] 06-11-2024 10:48-0500 Diastolic blood pressure 83 mm[Hg] Devyn Roman MD Work Phone: [facility] 06-11-2024 10:48-0500 Heart rate 105 /min Devyn Roman MD Work Phone: [facility] 06-11-2024 10:48-0500 Systolic blood pressure 118 mm[Hg] Devyn Roman MD Work Phone: [facility] 06-10-2024 08:43-0500 Body weight 72.12 kg Sherry Aung DO Work Phone: [facility] 06-10-2024 08:43-0500 Diastolic blood pressure 70 mm[Hg] Sherry Aung DO Work Phone: [facility] 06-10-2024 08:43-0500 Systolic blood pressure 110 mm[Hg] Sherry Aung DO Work Phone: [facility] 06-05-2024 09:00-0500 Body mass index (BMI) [Ratio] 26.55 kg/m2 [facility] 1 [facility] 06-05-2024 09:00-0500 Body temperature 98.4 [degF] [facility]pl[facility] 1 [facility] 06-05-2024 09:00-0500 Body weight 63.78 kg Pplc 1 [facility] 06-05-2024 09:00-0500 Diastolic blood pressure 73 mm[Hg] Pplc 1 [facility] 06-05-2024 09:00-0500 Heart rate 99 /min Ppl[facility] 1 [facility] 06-05-2024 09:00-0500 Respiratory rate 16 /min Pplc 1 [facility] 06-05-2024 09:00-0500 Systolic blood pressure 114 mm[Hg] Pplc 1 [facility] 06-03-2024 08:25-0500 Body weight 70.76 kg Sherry Aung DO Work Phone: [facility] 06-03-2024 08:25-0500 Diastolic blood pressure 68 mm[Hg] Sherry Aung DO Work Phone: [facility] 06-03-2024 08:25-0500 Systolic blood pressure 114 mm[Hg] Sherry Aung DO Work Phone: [facility] 05-16-2024 09:01-0400 Body weight 70.67 kg Sherry Aung DO Work Phone: [facility] 05-16-2024 09:01-0400 Diastolic blood pressure 64 mm[Hg] Sherry Aung DO Work Phone: [facility] 05-16-2024 09:01-0400 Systolic blood pressure 120 mm[Hg] Sherry Aung DO Work Phone: [facility] 05-15-2024 16:05-0400 Diastolic blood pressure 72 mm[Hg] [address] 05-15-2024 16:05-0400 Heart rate 93 /min [address] 05-15-2024 16:05-0400 Systolic blood pressure 110 mm[Hg] [address] 05-02-2024 09:35-0400 Body weight 68.58 kg Sayra BROWN Work Phone: [facility] 05-02-2024 09:35-0400 Diastolic blood pressure 68 mm[Hg] Sayra BROWN Work Phone: [facility] 05-02-2024 09:35-0400 Systolic blood pressure 110 mm[Hg] Sayra BROWN Work Phone: [facility] 10-25-2023 11:28-0400 Body temperature 99.1 [degF] [facility] 2 [facility] 10-25-2023 11:28-0400 Diastolic blood pressure 62 mm[Hg] [facility] 2 [facility] 10-25-2023 11:28-0400 Heart rate 74 /min [facility] 2 [facility] 10-25-2023 11:28-0400 Respiratory rate 18 /min [facility] 2 [facility] 10-25-2023 11:28-0400 Systolic blood pressure 97 mm[Hg] [facility] 2 [facility] 10-25-2023 08:54-0400 Body mass index (BMI) [Ratio] 25.32 kg/m2 [facility] 2 [facility] 10-25-2023 08:54-0400 Body weight 60.78 kg [facility] 2 [facility] 08-30-2023 11:44-0500 Body temperature 98.2 [degF] [facility] 1 [facility] 08-30-2023 11:44-0500 Diastolic blood pressure 68 mm[Hg] [facility] 1 [facility] 08-30-2023 11:44-0500 Heart rate 73 /min [facility] 1 [facility] 08-30-2023 11:44-0500 SaO2% (BldA) [Mass fraction] 98 % [facility] 1 [facility] 08-30-2023 11:44-0500 Systolic blood pressure 99 mm[Hg] [facility] 1 [facility] 08-30-2023 09:00-0500 Body mass index (BMI) [Ratio] 26.38 kg/m2 [facility] 1 [facility] 08-30-2023 09:00-0500 Body weight 63.32 kg [facility] 1 [facility] Encounters Encounter Date Encounter Type Care Provider Facility Start: 06-17-2024 End: 06-17-2024 Office outpatient visit 15 minutes Sayra BROWN Work Phone: [facility] Comment on above: 36 weeks gestation o f ; Third trimester Start: 06-17-2024 End: 06-17-2024 ambulatory SAYRA ANDREWS Not Available Start: 06-11-2024 End: 06-11-2024 Office outpatient visit 15 minutes Devyn Roman MD Work Phone: [facility] Comment on above: Crohn's disease of b oth small and large intestine with intestinal obstruction (CMS-HCC) (Primary Dx) Start: 06-11-2024 End: 06-11-2024 ambulatory SHERRY R [facility] Start: 06-10-2024 End: 06-10-2024 Bamboo flowsheet Sherry [...] Available Start: 06-05-2024 End: 06-05-2024 ambulatory Ppl[facility] Infusion Chair 1 [facility] Comment on above: Crohn's disease [...] 05-30-2024 End: 05-30-2024 ambulatory SHERRY R AUNG [facility] Start: 05-17-2024 End: 05-17-2024 Orders Only Akila Snider RN [facility] Comment on above: growth restric tion antepartum (Primary Dx); Crohn's disease of both small and large intestine with intestinal obstruction ([facility]); Deviation of long axis of heart [...] 05-15-2024 End: 05-15-2024 Orders Only Jenni Owen [facility] Comment on above: growth restric [...] Not Available Start: 04-30-2024 End: 04-30-2024 [facility] Start: 04-17-2024 End: 04-17-2024 ambulatory SHERRY R [facility] Start: 04-10-2024 End: 04-10-2024 ambulatory [facility] Start: 04-04-2024 End: 04-04-2024 ambulatory SHERRY AUNG Not Available Start: 04-02-2024 End: 04-02-2024 ambulatory SHERRY R [facility] Start: 03-29-2024 End: 03-29-2024 ambulatory [facility] Start: 03-28-2024 End: 03-28-2024 ambulatory DEVYN ROMAN [facility] Start: 03-28-2024 End: 03-28-2024 ambulatory SHERRY R [facility] Start: 03-19-2024 End: 03-19-2024 ambulatory YADIRA CHAU [facility] Start: 03-05-2024 End: 03-05-2024 ambulatory SAYRA ANDREWS Not Available Start: 02-29-2024 End: 02-29-2024 [facility] Start: 02-20-2024 End: 02-20-2024 ambulatory SHERRY R [facility] Start: 02-14-2024 End: 02-14-2024 ambulatory [facility] Start: 02-06-2024 End: 02-06-2024 ambulatory SHERRY AUNG Not Available Start: 01-09-2024 End: 01-09-2024 ambulatory SHERRY AUNG Not Available Start: 12-20-2023 End: 12-20-2023 ambulatory [facility] Start: 12-11-2023 End: 12-11-2023 ambulatory SHERRY R [facility] Start: 12-08-2023 End: 12-08-2023 ambulatory SHERRY AUNG Not Available Start: 11-30-2023 End: 11-30-2023 ambulatory [facility] Start: 10-25-2023 End: 10-25-2023 ambulatory [facility] Infusion Chair 2 [facility] Comment on above: Crohn's disease of s mall and large intestines with complication ([facility]) (Primary Dx) Start: 10-24-2023 Telephone encounter Amanda [facility] Start: 10-08-2023 End: 10-08-2023 Emergency department patient visit PREMA ABRAHAM [facility] Start: 08-30-2023 End: 08-30-2023 ambulatory [facility] Infusion Chair 1 [facility] Comment on above: Crohn's disease of s mall and large intestines with complication (CMS-HCC) (Primary Dx) Start: 09-17-2019 End: 09-18-2019 Patient encounter procedure PREMA ABRAHAM Facility: Start: 06-04-2018 End: 06-05-2018 Patient encounter procedure Trang Cornelius Terrazasdi Facility:Gastroenterol ogy [facility] Procedures Date Procedure Procedure Detail Performing [...] Phone: Start: 05-15-2024 nonstress test Na colin Roamn MD Work Phone: Start: 02-06-2024 Microscopic observat ion [Identifier] in Cervix by Cyto stain Jenni Owen CMA Start: 11-30-2023 Follow-up visit Follow-up SURESH Noa JOE Start: 11-11-2021 Microscopic observat ion [Identifier] in Cervix by Cyto stain Wl 1 Start: 03-04-2021 Adult depression scr eening assessment Wl 1 Start: 04-14-2020 H/O: colostomy Colostomy status Wlc 1 Start: 12-03-2019 H/O: ileostomy Ileostomy status Wl 1 Plan of Treatment Date Care Activity Detail Author Start: 02-05-2027 Screening for malign ant neoplasm of cervix Pap Smear [facility] Start: 06-11-2025 Adult BMI Screening Adult BMI Screen ing [facility] Start: 06-11-2025 Tobacco Screening Tobacco Screening [facility] Start: 06-05-2025 Adult BMI Screening Adult BMI Screen ing [facility] Start: 05-17-2025 End: 05-17-2025 US MFM [...] 05/17/2025 Start: 05-15-2025 Tobacco Screening Tobacco Screening [facility] Start: 04-17-2025 Adult BMI Screening Adult BMI Screen ing [facility] Start: 11-11-2024 Screening for malign ant neoplasm of cervix Pap Smear [facility] Start: 10-24-2024 Adult BMI Screening Adult BMI Screen ing [facility] Start: 10-07-2024 Tobacco Screening Tobacco Screening [facility] Start: 08-30-2024 Adult BMI Screening Adult BMI Screen ing [facility] Start: 08-12-2024 End: 08-12-2024 Patient encounter procedure 08/12/2024 8:30 AM EST Office Visit [facility] [address] [place] [phone] Suresh Diaz MD [address] [facility] [address] [place] [address] [facility] Start: 08-01-2024 End: 08-01-2024 ambulatory 08/01/2024 9:30 AM EST Infusion [facility] [address] [facility] [address] [place] [phone] [facility] Start: 06-24-2024 End: 06-24-2024 Patient encounter procedure 06/24/2024 2:40 PM EST Routine [facility] [address] [place] [phone] Sherry Horan, DO [address] [place], [place] [id number] [facility] Start: 06-17-2024 End: 06-17-2024 Patient encounter procedure 06/17/2024 1:50 PM EST Routine [facility] [address] [facility] [phone] Sayra Andrews PA [address] [facility] [address] [place] [address] [facility] Start: 06-11-2024 End: 06-11-2024 Patient encounter procedure [facility] Start: 06-10-2024 End: 06-10-2025 Strep [...] EST Infusion [facility] [address] [phone] [facility] Start: 06-03-2024 End: 06-03-2024 Patient encounter procedure [facility] Comment on above: Arrived Start: 05-30-2024 End: 05-30-2024 Patient encounter procedure 05/30/2024 3:00 PM EDT Appointment [facility] [address] [facility] [place] [address] [facility] Start: 05-16-2024 End: 05-16-2024 Patient encounter procedure [facility] Comment on above: Arrived Start: 05-10-2024 Tobacco Screening Tobacco Screening [facility] Start: 05-02-2024 End: 05-02-2024 Patient encounter procedure 05/02/2024 9:30 AM EDT Routine [facility] [address] [facility] [address] Sayra Andrews PA [address] [facility] [place] [address] Arrived [facility] Comment on above: Arrived Start: 03-31-2024 Influenza vaccination Influenza Vacc ine [facility] Start: 12-20-2023 End: 12-20-2023 ambulatory 12/20/2023 9:00 AM EDT Infusion [facility] [address] [facility] [phone] [facility] Start: 11-30-2023 End: 11-30-2023 Patient encounter procedure 11/30/2023 9:30 AM EDT Office Visit [facility] [address] [facility] [phone] Suresh Diaz MD [address] [facility] [address] [place] [address] [facility] Start: 10-25-2023 End: 10-25-2023 ambulatory 10/25/2023 9:00 AM EDT Infusion [facility] [address] [facility] [place] [phone] [facility] Start: 03-31-2023 Influenza vaccination Influenza Vacc ine [facility] Start: 03-04-2022 Depression Screening Depression Scre [facility] Start: 2012 DTaP,Tdap and Td Vaccines (1 - Tdap) DTaP,Tdap and Td Vaccines (1 - Tdap) [facility] Start: 2011 Adult BMI Follow Up Plan Adult BMI Follow Up Plan [facility] Start: 2005 Depression Screening Depression Scre [facility] End: 10-24-2024 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Quantiferon Gold Lab Routine Crohn's disease of small and large intestines with complication ([facility]) 1 Occurrences starting 10/25/2023 until 10/24/2024 [facility] Work Phone: Comment on above: 1 Occurrences starti ng 10/25/2023 until 10/24/2024 Payers Date Payer Category Payer Medicaid [id number] 2022 Medicaid [id number] 1995 Unknown [id number] 2.16.8 40.1.460482.3.579.2.196 1993 Unknown [id number] 2.16.84 0.1.950577.3.579.2.593 1993 Unknown [id number] 2.16.8 40.1.566285.3.579.2.1286 1993 Unknown [id number] 2.16.8 40.1.031107.3.579.2.1286 1993 Unknown [id number] 2.16.8 40.1.051842.3.579.2.1286 1993 Unknown [id number] 2.16.8 40.1.298798.3.579.2.1286 1993 Unknown [id number] 2.16.8 40.1.561934.3.579.2.1286 1993 Unknown [id number] 2.16.8 40.1.887724.3.579.2.1286 1993 Unknown [id number] 2.16.8 40.1.032536.3.579.2.1286 1993 Unknown [id number] 2.16.8 40.1.913749.3.579.2.1286 1993 Unknown [id number] 2.16.8 40.1.841935.3.579.2.1286 1993 Unknown [id number] 2.16.8 40.1.930510.3.579.2.1285 1993 Unknown [id number] 2.16.8 40.1.204213.3.579.2.1285 1993 Unknown [id number] 2.16.8 40.1.140707.3.579.2.1285 1993 Unknown [id number] 2.16.8 40.1.753913.3.579.2.1285 1993 Unknown [id number] 2.16.8 40.1.735687.3.579.2.1285 1993 Unknown [id number] 2.16.8 40.1.221168.3.579.2.1285 1993 Unknown [id number] 2.16.8 40.1.330429.3.579.2.1285 1993 Unknown [id number] 2.16.8 40.1.678017.3.579.2.1285 1993 Unknown [id number] 2.16.8 40.1.060083.3.579.2.1285 1993 Unknown [id number] 2.16.8 40.1.475286.3.579.2.1285 1993 Unknown [id number] 2.16.8 40.1.565218.3.579.2.1285 1993 Unknown [id number] 2.16.8 40.1.271192.3.579.2.1285 1993 Unknown [id number] 2.16.8 40.1.034082.3.579.2.1285 1993 Unknown [id number] 2.16.8 40.1.707440.3.579.2.1285 1993 Unknown [id number] 2.16.8 40.1.459686.3.579.2.1285 1993 Unknown [id number] 2.16.8 40.1.851141.3.579.2.1285 1993 Unknown [id number] 2.16.8 40.1.003226.3.579.2.1286 1993 Unknown [id number] 2.16.84 0.1.707207.3.579.2.1259 1993 Unknown [id number] 2.16.84 0.1.220987.3.579.2.1259 1993 Unknown [id number] 2.16.84 0.1.557272.3.579.2.9 1993 Unknown [id number] 2.16.84 0.1.019408.3.579.2.1259 1993 Unknown [id number] 2.16.84 0.1.964812.3.579.2.1259 1993 Unknown [id number] 2.16.84 0.1.953978.3.579.2.9 1993 Unknown [id number] 2.16.84 0.1.181660.3.579.2.9 1993 Unknown [id number] 2.16.84 0.1.893074.3.579.2.1259 1993 Unknown [id number] 2.16.84 0.1.493676.3.579.2.9 1993 Unknown [id number] 2.16.84 0.1.114913.3.579.2.1259 1959 Self-pay [id number] 07-31-1799 Self-pay Social History Date Type Detail Facility Start: 07-05-2022 End: 12-08-2023 Tobacco smoking status UTIS Never smoked tobacco [facility] Start: 07-05-2022 End: 12-08-2023 Tobacco use and exposure Smokeless tobacco non-user [facility] Start: 05-10-2023 End: 10-08-2023 Alcohol intake Current drinker of alcohol (finding) [facility] Start: 05-10-2023 End: 12-08-2023 Alcohol intake [facility] Start: 08-06-2020 End: 12-08-2023 Social connection and isolation panel [facility] Do you belong to any clubs or organizations such as episcopalian groups, unions, fraternal or athletic groups, or school groups? No [facility] Are you now , , , , never or living with a partner? [facility] How often to you hav e a drink containing alcohol? 2-4 times a month [facility] Average Number of Drinks Not on file [facility] Do you feel stress - tense, restless, nervous, or anxious, or unable to sleep at night because your mind is troubled all the time - these days [OSQ] Only a little [facility] Start: 12-22-2021 Alcohol Comment socially [facility] Start: 1995 Sex Assigned At Not on file [facility] Start: 05-02-2024 End: 06-17-2024 Alcoholic beverage intake Ex-drinker (finding) [facility] Start: 10-17-2023 [facility] Start: 10-16-2019 Sex Female (finding) [facility] Goals Date Patient Goal Desired Activity /State Personal health goal Comment on above: Formatting of this n ote might be different from the original. Evaluation of progress towards goal: Patient plans to return home with [facility] Clinical Notes 08-30-2023 to 06-17-2024 STEPHANIE Thorne [...] STEPHANIE Thorne documented in this encounter [facility] 06-11-2024 History of Presen t illness Narrative [...] Past Medical History: Diagnosis Date Crohn's colitis ([facility]) Fibromyalgia, primary Herpes Ovarian cyst REVIEW OF [...] DEVYN ROMAN MD documented in this encounter [facility] 06-10-2024 History of Presen t illness Narrative [...] nursing note reviewed. Exam conducted with a clip baker present. Vitals: There is no height or [...] Horan DO documented in this encounter [facility] 06-05-2024 History of Presen t illness Narrative IV Infusion START time: 914 Patient here for Entyvio infusion. Patient denies any recent infections, open wounds, recent/future surgery, or insurance changes. IV started with 22g needle to Right AC by Renuka Middleton RN x1 attempt. Patient tolerated well. Remicade Lot# [id number] Exp- 08/27/2026 Time out performed prior to medication administration. Name, , medication(s) verified IV Infusion END time: 1124 patient infusion complete. IV discontinued, catheter intact, vitals WNL. Patient tolerated infusion well PIV flushed with 10 ml of 0.9% NS after medication infused documented in this encounter [facility] 06-03-2024 History of Presen t illness [...] nursing note reviewed. Exam conducted with a clip baker present. Vitals: There is no height or [...] Horan DO documented in this encounter [facility] 05-16-2024 History of Presen t [...] nursing note reviewed. Exam conducted with a clip baker present. Vitals: There is no height or [...] order to have NST/BPP done locally at [facility]. Documented by Paddy Garza LPN on behalf of: Sherry Horan DO documented in this encounter [facility] 05-15-2024 History of Presen t [...] all scheduled appointments documented in this encounter [facility] 05-02-2024 History of Presen t illness [...] Past Medical History: Diagnosis Date Crohn's disease ([facility]) Genital warts Herpes Ovarian cyst HISTORY PAST MEDICAL HISTORY SOCIAL HISTORY Past Medical History: Diagnosis Date Crohn's disease ([facility]) Genital warts Herpes Ovarian cyst [...] STEPHANIE Thorne documented in this encounter [facility] 10-25-2023 History of Presen t illness Narrative 0900 Patient here for Avsola infusion. Patient denies any recent infections, open wounds, recent/future surgery, or insurance changes . IV started with 22g needle to right AC by paddy gill x 1 attempt . Patient tolerated well. Avsola x 2 vials, lot# [id number], exp date Avsola x 1 vial, lot# [id number], exp date 02/27/2027 Time out performed with [...] of info given. documented in this encounter [employer] 10-24-2023 Miscellaneous Notes Formattin g of this note might be different from the original. Patient currently receiving Avsola 5mg/kg every 8 weeks. However due to shop tech delay we are unable to obtain medication. Prior auth request forms completed for Remicade 5mg/kg to be given every 56 days, faxed to [phone] Remicade approved for 5mg/kg (400mg) for 7 visits from 10/25/2023-10/23/2024. Auth # [id number] Referral placed. Therapy plan updated. Flowsheet updated. documented in this encounter [facility] 10-24-2023 Telephone encount er Note Patient currently receiving Avsola 5mg/kg every 8 weeks. However due to shop tech delay we are unable to obtain medication. Prior auth request forms completed for Remicade 5mg/kg to be given every 56 days, faxed to [phone] [facility] 10-24-2023 Telephone encount er Note Remicade approved for 5mg/kg (400mg) for 7 visits from 10/25/2023-10/23/2024. Auth # [id number] Referral placed. Therapy plan updated. Flowsheet updated. [facility] 08-30-2023 History of Presen t illness Narrative 0906 Patient here for Avsola infusion. Patient denies any recent infections, open wounds, recent/future surgery, or insurance changes . Site cleansed with alcohol. IV started with 22g needle by Juan M GILL in right antecube. Patient tolerated well. 1142 patient infusion complete. IV discontinued at 1142. Patient tolerated infusion well. documented in this encounter [facility] Evaluation note Diagnosis Crohn's disease of small and large intestines with complication (CMS-HCC)- Primary [facility] Diagnosis Crohn's disease of small and large intestines with complication (CMS-HCC)- Primary [facility]* Diagnosis 30 weeks gestation of - Primary Third trimester state, incidental documented in this encounter [facility]* Diagnosis Crohn's disease of both small and large intestine with intestinal obstruction (CMS-HCC)- Primary growth restriction antepartum growth restriction antepartum- Primary documented [facility]* Diagnosis Crohn's disease of both small and large intestine with intestinal obstruction (CMS-HCC)- Primary growth restriction antepartum [facility] in this encounter [facility] Diagnosis 32 weeks gestation of Third trimester state, incidental documented in this encounter [facility]* Diagnosis growth restriction antepartum- Primary Crohn's disease of both small and large intestine with intestinal obstruction (CMS-HCC) 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 [facility] Diagnosis Third trimester state, incidental 34 weeks gestation of documented in this encounter [facility]* Diagnosis Crohn's disease of small and large intestines with complication (CMS-HCC)- Primary [facility]* Diagnosis Third trimester state, incidental 35 weeks gestation of Herpes Herpes simplex without mention of complication documented in this encounter [facility]* Diagnosis Crohn's disease of both small and large intestine with intestinal obstruction (CMS-HCC)- Primary [facility] Diagnosis 36 weeks gestation of Third trimester state, incidental documented in this encounter [facility] HealthcareInstructionsNot on filedocumented in this encounter[facility]ructionsNot on filedocumented in this [facility] SystemInstructionsNot on filedocumented in this encounterPro[facility] System[facility]ructionsNot on filedocumented in [facility] InstructionsNot on filedocumented in this [facility] InstructionsNot on filedocumented in this encounterL[facility] Summary Purpose Family History [...] section and content) DATE CREATED AUTHOR 07/08/2018 [facility] DATE CREATED AUTHOR AUTHOR'S ORGANIZ ATION 09/20/2019 [facility] DATE CREATED AUTHOR AUTHOR'S ORGANIZ ATION 12/18/2019 Rashawn Butcher [facility] DATE CREATED AUTHOR AUTHOR'S ORGANIZ ATION 04/03/2024 [facility] DATE CREATED AUTHOR AUTHOR'S ORGANIZ ATION 06/06/2024 [facility] DATE CREATED AUTHOR AUTHOR'S ORGANIZ ATION 06/13/2024 [facility] DATE CREATED AUTHOR AUTHOR'S ORGANIZ ATION 06/19/2024 [facility] Specialists EPIC Reason for Visit (unrecogniz ed section and content) Reason Comments Outpatient Infusion [facility] Specialty Diagnoses / Procedures Referred By Theodore kolhi Referred To Contact Gastroenterology Diagnoses Crohn's disease of both small and large intestine with unspecified complications Renflexis 400mg q8 weeks, 7 visits, 02.02.23 - 24, HK/CF, Crohn's Procedures INJECTION, INFLIXIMAB-AXXQ, BIOSIMILAR, (AVSOLA), 10 MG INFUSION Prema Abraham MD [address] [place] [address] [address] Referral ID Status Reason Start Date Expiration Date V isits Requested Visits Authorized [id number] Authorized 02/02/2023 02/02/2024 7 7 Reason Comments Outpatient Infusion [facility] Reason Comments Routine Visit Reason Comments add on NST for FGR Specialty Diagnoses / Procedures Referred By Theodore kohli Referred To Contact Maternal and Medicine Diagnoses growth restriction antepartum Procedures nonstress test - Maternal Medicine Devyn Roman MD [address] [place] [address] Phone: tel: fax: Maternal- Medicine at [facility] [address] [place] [address] Phone: tel: fax: Referral ID Status Reason Start Date Expiration Date V isits Requested Visits Authorized [id number] Pending Review 05/15/2024 05/15/2025 1 1 Reason Comments Outpatient Infusion Remicade Specialty Diagnoses / Procedures Referred By Theodore kohli Referred To Contact Gastroenterology Diagnoses Crohn's disease of both small and large intestine with unspecified complications Remicade 5mg/kg every 56 days ( 400 mg) Auth'd from 10/25/2023-10/23/2024 for 7 Visits, HK/CF, Crohn's Procedures NM INFLIXIMAB INJECTION INFUSION Prema Abraham MD [address] [place] [id number] Phone: tel: fax: [facility] [place] [address] [address] Phone: tel: fax: Referral ID Status Reason Start Date Expiration Date V isits Requested Visits Authorized [id number] Authorized 12/20/2023 12/19/2024 7 7 Reason Comments growth restriction history of bowel resection Chrohns disease Care Teams (unrecognized sec tion and content) [employer] Sm[employer] Pipe Relationship Specialty Start Date End Date Prema Abraham MD [address] [place] [address] PCP - General Family Medicine 12/17/19 [employer] Sm[employer]ipe Relationship Specialty Start Date End Date Prema Abraham MD [address] [place], [place] [id number] PCP - General Family Medicine 10/08/23 Coater Smoking Pipe Relationship Specialty Start Date End Date Prema Abraham MD [address] [place], [place] [id number] PCP - General Family Medicine 10/08/23 Coater Smoking Pipe Relationship Specialty Start Date End Date Prema Abraham MD [address] [place] [id number] PCP - General Family Medicine 02/29/24 Coater Smoking Pipe Relationship Specialty Start Date End Date Prema Abraham MD [address] [place] [id number] PCP - General Family Medicine 02/29/24 Coater Smoking Pipe Relationship Specialty Start Date End Date Prema Abraham MD [address] [place] [id number] PCP - General Family Medicine 02/29/24 Coater Smoking Pipe Relationship Specialty Start Date End Date Prema Abraham MD [address] [place] [phone] PCP - General Family Medicine 02/29/24 Coater Smoking Pipe Relationship Specialty Start Date End Date Prema Abraham MD [address] [place] [id number] PCP - General Family Medicine 02/29/24 FOR [...] BE BASED ON THE PRIMARY CLINICAL RECORDS. [email or web address] [facility] provides no warranty or guarantee of the accuracy or completeness of information in this document.
[2024-06-21 08:58] VITALS: BP 130/77; PULSE 105
== END 2024-06-21 09:20 | disposition home or self-care (01) ==
LOC: FBCO 08:23 → FBC 08:48
PROVIDERS: PCP Family Medicine; Visit Provider Obstetrics & Gynecology
DX: O26.893 Other specified pregnancy related conditions, third trimester (principal)
CPT/HCPCS: 59025

== ENCOUNTER 2024-06-25 06:23 | Outpatient (OUT) | payer MEDICAID, SELFPAY ==
--- OUTSIDE RECORDS SUMMARY | 2024-06-25 06:25 | XMS_ITS | CCD ---
Author Organization [facility] Care Team Providers Care Department Administrator Name Role Phone Trang Harrison Unavailable Unavailable [...] 10 tablet 0 10/08/2023 Active Vit-Fe Fumarate-FA (Workfolio VITAMINS PO) (18 sources) Start: 11-16-2023 take 1 dose by mouth once daily Vit-Fe Fumarate-FA (Workfolio VITAMINS PO) 1 each Daily 11/16/2023 Active [...] 08/17/2021 Active valACYclovir 1000 mg oral tablet (8 sources) Herpesvirus Nucleoside Analog DNA Polymerase Inhibitor, Herpes Simplex Virus Nucleoside Analog DNA Polymerase Inhibitor, Herpes Zoster Virus Nucleoside Analog DNA Polymerase Inhibitor Start: 06-10-2024 End: 06-24-2024 valACYclovir (Valtrex) 1 g tablet Indications: Herpes Take 0.5 tablets (500 mg) by mouth in the morning and 0.5 tablets (500 mg) before bedtime. Do all this for 10 days. AFTER 10 days then daily until delivery.. 50 tablet 1 06/10/2024 06/24/2024 Active take 1 tablet by randall th [...] 03-28-2024 Episodic Other and delivery including normal (12 sources) Third trimester ; Translations: [Encounter for [...] [36 weeks gestation of ] 06-17-2024 Episodic Residual codes; unclassified (2 sources) Gestation period, 37 weeks; Translations: [37 weeks gestation of ] 06-24-2024 Episodic Spondylosis; intervertebral disc disorders; other back [...] Range Facility Urinalysis macro (dipstick) panel (U)on 06-24-2024 Bilirubin, UA Negative Negative - 4(70) +++ mg/dL [facility] Blood, UA Positive Negative - 50 Kal/mcL [facility] Comment on above: large Clarity, UA Clear [facility] Color, UA Yellow [facility] Glucose, UA Negative Negative - 2000(110) ++++ mg/dL [facility] Interpretation and review of laboratory results Abnormal [facility] Ketones, UA Positive Negative - 160(16) ++++ mg/dL [facility] Comment on above: trace Leukocytes, UA Negative Negative - 500+++ Sandra/mcL [facility] Nitrite, UA Negative Negative - Positive [facility] pH, UA 6.5 5 - 9 [facility] Protein, UA Negative Negative - 1999(20) ++++ mg/dL [facility] Spec Grav, UA 1.02 1 - 1.03 [facility] Urobilinogen, UA 0.2 0.2 - 12 mg/dL [facility] Urinalysis macro (dipstick) panel (U)on 06-17-2024 Bilirubin, UA Negative Negative - 4(70) +++ mg/dL [facility] Blood, UA Positive Negative - 50 Kal/mcL [facility] Comment on above: trace-intact Clarity, UA Clear [facility] Color, UA Yellow [facility] Glucose, UA Negative Negative - 1999(110) ++++ mg/dL [facility] Interpretation and review of laboratory results Abnormal [facility] Ketones, UA Positive Negative - 160(16) ++++ mg/dL [facility] Comment on above: trace Leukocytes, UA Negative Negative - 500+++ Sandra/mcL [facility] Nitrite, UA Negative Negative - Positive [facility] pH, UA 5.5 5 - 9 [facility] Protein, UA Negative Negative - 1999(20) ++++ mg/dL [facility] Spec Grav, UA 1.01 1 - 1.03 [facility] Urobilinogen, UA 0.2 0.2 - 12 mg/dL [facility] Urinalysis macro (dipstick) panel (U)on 06-10-2024 Bilirubin, [...] Center pH, UA 6 5 - 9 [facility] Protein, UA Negative Negative - 1999(20) ++++ mg/dL [facility] Spec Grav, UA 1.02 1 - 1.03 [facility] Urobilinogen, UA 1.0 0.2 - 12 mg/dL [facility] Urinalysis macro (dipstick) panel (U)on 06-03-2024 Bilirubin, UA Negative Negative - 4(70) +++ mg/dL [facility] Blood, UA Negative Negative - 50 Kal/mcL [facility] Clarity, UA Clear [facility] UA Negative Negative - 1999(20) ++++ mg/dL [facility] Spec Grav, UA 1.03 1 - 1.03 [facility] Urobilinogen, UA 0.2 0.2 - 12 mg/dL [facility] Urinalysis macro (dipstick) panel (U)on 05-16-2024 Bilirubin, UA Negative Negative - 4(70) +++ mg/dL [facility] Blood, UA Positive Negative - 50 Kal/mcL [facility] Comment on above: trace-intact Clarity, [...] Center pH, UA 6 5 - 9 [facility] Protein, UA Negative Negative - 1999(20) ++++ mg/dL [facility] Spec Grav, UA 1.025 1 - 1.03 [facility] Urobilinogen, UA 0.2 0.2 - 12 mg/dL [facility] No Panel Informationon 05-15 Patient Name: Kishor Maldonado Patient : 1995 NST Objective Findings: Variability: Moderate Decelerations: None Accelerations: Yes Acoustic Stimulator: No Baseline: 130 BPM Uterine Irritability: Yes Contractions: Not present Comments: Uterine irritability noted, intercourse this morning. [facility] instructions/handout and labor precautions reviewed. NST Interpretation: Nonstress Test Interpretation: Reactive (Devyn Roman MD) NST performed by: Aislinn Richardson RN 05/15/2024 4:30 PM [facility] M. tuberculosis stim IFN-g p venkat (Bld)on 03-29-2024 Mitogen minus Nil Result 1.22 IU/mL Normal [facility] Comment on above: Performed By: #### C AGNES, 1989-11, HA1C, CBCA, 5196-1, 65086-0, 53644-5, 2132-9, 10003-8, 8014-3, 29103-5 #### [facility] ([id number]) [address] [place] [address], [address] [place] [address] Nil Result 0.02 IU/mL Normal [facility] Comment on above: Result Comment: NOTE Test Performed by: [facility] [address] [place] [address] Bun Panner: Donnie Sanon Ph.D.; CLIA# [id number] Performed By: #### C AGNES, 1989-11, HA1C, CBCA, 5196-1, 96876-5, 07912-7, 2-9, 26130-6, 8014-3, 20311-1 #### [facility] ([id number]) [address] [place] [address], [address] [place] [address] QuantiFERON-Tb Gold Plus Result Negative Normal Negative [facility] Comment on above: Result Comment: NOTE [...] of Tuberculosis in Adults and Children [Jenny GMOEZ et. al. Clin. Infect. Dis. 2017;64(2):111-115]. The reference range for the 'TB1 Ag minus Nil Result' and 'TB2 Ag minus Nil Result' is an Interferon-gamma level <0.35 IU/mL. Performed By: #### C AGNES, 1989-11, HA1C, CBCA, 5196-1, 41787-6, 91174-0, 2132-9, 23104-4, 8014-3, 93783-4 #### [facility] ([id number]) [address] [facility], [address] [place] [address] TB1 Ag minus Nil Result NEG 0.01 Normal [facility] Comment on above: Performed By: #### C AGNES, 1989-11, HA1C, CBCA, 5196-1, 18606-8, 43171-6, 2132-9, 33679-4, 8014-3, 85002-6 #### [facility] ([id number]) [address] [facility], [address] [place] [address] TB2 Ag minus Nil Result NEG 0.01 Normal [facility] Comment on above: Performed By: #### C AGNES, 1989-11, HA1C, CBCA, 5196-1, 84111-8, 99577-8, 2132-9, 33182-9, 8014-3, 68684-2 #### [facility] ([id number]) [address], [address] [place] [address] CBC AND AUTO DIFFon -13-20 24 ABSOLUTE BASOPHIL 0.0 X10E9/L Normal 0.0-0.2 [facility] Comment on above: Performed By: #### C AGNES, 1989-11, HA1C, CBCA, 5196-1, 77476-5, 58553-0, 2132-9, 75060-4, 8014-3, 07844-5 #### [facility] ([id number]) [address], [address] [place] [address] ABSOLUTE NEUTROPHIL 5.5 X10E9/L Normal 1.5-6.6 [facility] Comment on above: Performed By: #### C AGNES, 1989-11, HA1C, CBCA, 5196-1, 39007-1, 27473-7, 2-9, 23169-8, 8014-3, 19627-9 #### [facility] ([id number]) [address], [address] [place] [address] Basophils/100 WBC (Bld) 0.3 % Normal [facility] Comment on above: Performed By: #### C AGNES, 1989-11, HA1C, CBCA, 5196-1, 66407-0, 77633-0, 2131-9, 99717-4, 8014-3, 53522-7 #### [facility] ([id number]) [address], [address] [place] [address] Eosinophils (Bld) [#/Vol] 0.2 10*3/uL Normal 0.0-0.4 [facility] Comment on above: Performed By: #### C AGNES, 1989-11, HA1C, CBCA, 5196-1, 78329-0, 39741-5, 2131-9, 79816-0, 8014-3, 92180-6 #### [facility] ([id number]) [address], [address] [place] [address] Eosinophils/100 WBC (Bld) 2.6 % Normal [facility] Comment on above: Performed By: #### C AGNES, 1989-11, HA1C, CBCA, 5196-1, 87440-1, 31830-4, 2131-9, 70794-7, 8014-3, 18588-7 #### [facility] ([id number]) [address], [address] [place] [address] Erythrocyte distribution width (RBC) [Ratio] 13.3 % Normal 11.5-15.0 [facility] Comment on above: Performed By: #### C AGNES, 1989-11, HA1C, CBCA, 5196-1, 54688-3, 69716-0, 2131-9, 02081-3, 8014-3, 83538-1 #### [facility] ([id number]) [address], [address] [place] [address] Hematocrit (Bld) [Volume fraction] 40.5 % Normal 35-47 [facility] Comment on above: Performed By: #### C AGNES, 1989-11, HA1C, CBCA, 5196-1, 27200-6, 54239-8, 2131-9, 42434-2, 8014-3, 55636-2 #### [facility] ([id number]) [address], [address] [place] [address] Hemoglobin (Bld) [Mass/Vol] 14.2 g/dL Normal 11.7-15.5 [facility] Comment on above: Performed By: #### C AGNES, 1989-11, HA1C, CBCA, 5196-1, 38622-4, 61997-7, 2131-9, 31493-3, 8014-3, 37502-4 #### [facility] ([id number]) [address], [address] [place] [address] Lymphocytes (Bld) [#/Vol] 1.3 10*3/uL Normal 1.0-3.5 [facility] Comment on above: Performed By: #### C AGNES, 1989-11, HA1C, CBCA, 5196-1, 71576-8, 44049-3, 2131-9, 53053-2, 8014-3, 56886-1 #### [facility] ([id number]) [address], [address] [place] [address] Lymphocytes/100 WBC (Bld) 18.2 % Normal [facility] Comment on above: Performed By: #### C AGNES, 1989-11, HA1C, CBCA, 5196-1, 44306-8, 15325-3, 2132-9, 65826-3, 8014-3, 76932-8 #### [facility] ([id number]) [address], [address] [place] [address] MCH (RBC) [Entitic mass] 30.7 pg Normal 27-34 [facility] Comment on above: Performed By: #### C AGNES, 1989-11, HA1C, CBCA, 5196-1, 17761-8, 35840-1, 2-9, 97870-9, 8014-3, 73710-5 #### [facility] ([id number]) [address] [address] [facility], [address] [place] [address] MCHC (RBC) [Mass/Vol] 35.2 g/dL Normal 32-36 [facility] Comment on above: Performed By: #### C AGNES, 1989-11, HA1C, CBCA, 5196-1, 20508-3, 81142-1, 2131-9, 81951-2, 8014-3, 73266-3 #### [facility] ([id number]) [address] [facility], [address] [place] [address] MCV (RBC) [Entitic vol] 87 fL Normal 80-100 [facility] Comment on above: Performed By: #### C AGNES, 1989-11, HA1C, CBCA, 5196-1, 64942-9, 54063-6, 2131-9, 78139-8, 8014-3, 27061-3 #### [facility] ([id number]) [address], [address] [place] [address] Monocytes (Bld) [#/Vol] 0.4 10*3/uL Normal 0-0.9 [facility] Comment on above: Performed By: #### C AGNES, 1989-11, HA1C, CBCA, 5196-1, 74862-5, 61318-9, 2132-9, 11685-0, 8014-3, 85200-1 #### [facility] ([id number]) [address], [address] [place] [address] Monocytes/100 WBC (Bld) 5.1 % Normal [facility] Comment on above: Performed By: #### C AGNES, 1989-11, HA1C, CBCA, 5196-1, 92792-6, 57561-3, 2-9, 83301-9, 8014-3, 71982-8 #### [facility] ([id number]) [address], [address] [place] [address] Neutrophils/100 WBC (Bld) 73.8 % Normal [facility] Comment on above: Performed By: #### C AGNES, 1989-11, HA1C, CBCA, 5196-1, 95028-7, 34304-7, 2131-9, 91788-7, 8014-3, 14273-7 #### [facility] ([id number]) [address], [address] [place] [address] Platelet mean volume (Bld) [Entitic vol] 9.1 fL Normal 7-12 [facility] Comment on above: Performed By: #### C AGNES, 1989-11, HA1C, CBCA, 5196-1, 42498-6, 00281-3, 2131-9, 67155-3, 8014-3, 34292-6 #### [facility] ([id number]) [address], [address] [place] [address] Platelets (Bld) [#/Vol] 254 10*3/uL Normal 150-450 [facility] Comment on above: Performed By: #### C AGNES, 1989-11, HA1C, CBCA, 5196-1, 05383-3, 59187-6, 2132-9, 38057-5, 8014-3, 34435-3 #### [facility] ([id number]) [address], [address] [place] [address] RBC COUNT 4.63 X10E12/L Normal 3.80-5.20 [facility] Comment on above: Performed By: #### C AGNES, 1989-11, HA1C, CBCA, 5196-1, 99516-5, 80641-7, 2132-9, 28091-3, 8014-3, 84550-0 #### [facility] ([id number]) [address], [address] [place] [address] WBC (Bld) [#/Vol] 7.4 10*3/uL Normal 4.0-11.0 [facility] Comment on above: Performed By: #### C AGNES, 1989-11, HA1C, CBCA, 5196-1, 68781-4, 55281-1, 2132-9, 85638-8, 8014-3, 58967-2 #### [facility] ([id number]) [address], [address] [place] [address] COMPREHENSIVE METABOLIC PANE Jesse 12-11-2023 Albumin [Mass/Vol] 4.3 g/dL Normal 3.2-5.3 [facility] Comment on above: Performed By: #### C AGNES, 1989-11, HA1C, CBCA, 5196-1, 17914-0, 27744-6, 2132-9, 99399-0, 8014-3, 94815-5 #### [facility] ([id number]) [address], [address] [place] [address] ALP [Catalytic activity/Vol] 48 U/L Normal 39-130 [facility] Comment on above: Performed By: #### C AGNES, 1989-11, HA1C, CBCA, 5196-1, 92996-6, 68202-8, 2132-9, 97525-1, 8014-3, 37592-6 #### [facility] ([id number]) [address], [address] [place] [address] ALT [Catalytic activity/Vol] 13 U/L Normal 0-31 [facility] Comment on above: Performed By: #### C AGNES, 1989-11, HA1C, CBCA, 5196-1, 19630-0, 61804-5, 2131-9, 70406-9, 8014-3, 82766-5 #### [facility] ([id number]) [address], [address] [place] [address] Anion gap [Moles/Vol] 10 mmol/L Normal 5-15 [facility] Comment on above: Performed By: #### C AGNES, 1989-11, HA1C, CBCA, 5196-1, 52845-4, 34300-2, 2131-9, 03778-0, 8014-3, 84779-6 #### [facility] ([id number]) [address], [address] [place] [address] AST [Catalytic activity/Vol] 17 U/L Normal 0-41 [facility] Comment on above: Performed By: #### C AGNES, 1989-11, HA1C, CBCA, 5196-1, 83762-2, 14587-5, 2131-9, 78702-7, 8014-3, 27792-1 #### [facility] ([id number]) [address], [address] [place] [address] Bilirubin [Mass/Vol] 0.7 mg/dL Normal 0.3-1.2 [facility] Comment on above: Performed By: #### C AGNES, 1989-11, HA1C, CBCA, 5196-1, 92263-1, 42317-9, 2131-9, 94484-8, 8014-3, 77405-3 #### [facility] ([id number]) [address], [address] [place] [address] Calcium [Mass/Vol] 9.5 mg/dL Normal 8.5-10.5 [facility] Comment on above: Performed By: #### C AGNES, 1989-11, HA1C, CBCA, 5196-1, 72799-6, 18761-2, 2132-9, 52335-7, 8014-3, 09745-0 #### [facility] ([id number]) [address], [address] [place] [address] Chloride [Moles/Vol] 104 mmol/L Normal 98-109 [facility] Comment on above: Performed By: #### C AGNES, 1989-11, HA1C, CBCA, 5196-1, 31623-4, 58470-3, 2131-9, 80772-4, 8014-3, 14183-0 #### [facility] ([id number]) [address] [facility] [place] [address] CO2 [Moles/Vol] 23 mmol/L Normal 22-32 [facility] Comment on above: Performed By: #### C AGNES, 1989-11, HA1C, CBCA, 5196-1, 89728-9, 02032-3, 2131-9, 25176-1, 8014-3, 58854-2 #### [facility] ([id number]) [address] [facility], [address] [place] [address] Creatinine [Mass/Vol] 0.49 mg/dL Normal 0.40-1.00 [facility] Comment on above: Result Comment: METH OD TRACEABLE TO IDMS STANDARD Performed By: #### C AGNES, 1989-11, HA1C, CBCA, 5196-1, 62494-7, 11288-6, 2131-9, 56289-8, 8014-3, 46038-4 #### [facility] ([id number]) [address], [address] [place] [address] eGFR (CKD-EPI) NON-RACE DEPENDENT >90 Normal >59 [facility] Comment on above: Result Comment: Reported eGFR is based on the CKD-EPI 2020 equation that does not use a race coefficient. Performed By: #### C AGNES, 1989-11, HA1C, CBCA, 5196-1, 55953-7, 87576-1, 2132-9, 23845-7, 8014-3, 98051-3 #### [facility] ([id number]) [address], [address] [place] [address] Glucose [Mass/Vol] 92 mg/dL Normal 65-99 [facility] Comment on above: Performed By: #### C AGNES, 1989-11, HA1C, CBCA, 5196-1, 02843-2, 15567-9, 2131-9, 03539-7, 8014-3, 92025-2 #### [facility] ([id number]) [address] [facility] [place] [address] Potassium [Moles/Vol] 4.1 mmol/L Normal 3.5-5.0 [facility] Comment on above: Performed By: #### C AGNES, 1989-11, HA1C, CBCA, 5196-1, 59847-5, 64669-6, 2131-9, 69567-0, 8014-3, 09733-9 #### [facility] ([id number]) [address] [facility], [address] [place] [address] Protein [Mass/Vol] 7.5 g/dL Normal 6.0-8.0 [facility] Comment on above: Performed By: #### C AGNES, 1989-11, HA1C, CBCA, 5196-1, 14096-8, 70193-2, 2131-9, 35893-6, 8014-3, 56002-4 #### [facility] ([id number]) [address], [address] [place] [address] Sodium [Moles/Vol] 137 mmol/L Normal 134-146 [facility] Comment on above: Performed By: #### C AGNES, 1989-11, HA1C, CBCA, 5196-1, 94048-5, 83704-4, 2131-9, 09585-7, 8014-3, 59983-7 #### [facility] ([id number]) [address], [address] [place] [address] Urea nitrogen [Mass/Vol] 6 mg/dL Normal 5-23 [facility] Comment on above: Performed By: #### C AGNES, 1989-11, HA1C, CBCA, 5196-1, 48740-5, 19550-7, 2131-9, 63666-0, 8014-3, 63783-6 #### [facility] ([id number]) [address], [address] [place] [address] CRP [Mass/Vol]on 12-11-2023 C REACTIVE PROTEIN 0.5 mg/dL Normal 0.000-0.744 [facility] Comment on above: Performed By: #### C AGNES, 1989-11, HA1C, CBCA, 5196-1, 26713-2, 78248-0, 9, 76625-2, 8014-3, 56040-3 #### [facility] ([id number]) [address], [address] [place] [address] HBV surface Ag IA Qlon 12-10 HEPATITIS B SURF AG Negative Normal NEG [facility] Comment on above: Performed By: #### C AGNES, 1989-11, HA1C, CBCA, 5196-1, 28489-4, 74812-8, 9, 55384-7, 8014-3, 44815-0 #### [facility] ([id number]) [address], [address] [place] [address] HCV Ab IA Qlon 12-11-2023 ANTI HCV W/PCR REFLX Non-Reactive Normal NRCT Pr [facility] Comment on above: Result Comment: If recent infection suspected, recommend repeat testing (>2 months). Bajaui-cx-mlarpt ratio is <0.80. Performed By: #### C AGNES, 1989-11, HA1C, CBCA, 5196-1, 54517-1, 44737-2, 2132-9, 96222-4, 8014-3, 58008-6 #### [facility] ([id number]) [address] [place] [address], [address] [place] [address] HGB A1C (GLYCO-HGB)on 2023 Glucose [Mass/Vol] 103 mg/dL Normal [facility] Comment on above: Performed By: #### C AGNES, 1989-11, HA1C, CBCA, 5196-1, 59884-4, 22308-3, 9, 12040-9, 8014-3, 76861-6 #### [facility] ([id number]) [address] [place] [address], [facility] [address] [place] [address] HbA1c (Bld) [Mass fraction] 5.2 % Normal 4.4-5.6 [facility] Comment on above: Result Comment: NOTE ADA Guidelines Result HgbA1c Normal : less than 5.7 % Prediabetes : 5.7 % to 6.4 % Diabetes : > 6.4 % Use with caution in patients with abnormal hemoglobin variants as the half-life of red blood cells and in vivo glycation rates are affected. Performed By: #### C AGNES, 1989-11, HA1C, CBCA, 5196-1, 06444-7, 44603-0, 2131-9, 18879-4, 8014-3, 43841-3 #### [facility] ([id number]) [address] [place] [address], [address] [place] [address] HIV 1+2 Ab+HIV1 p24 Ag IA Ql on 12-11-2023 HIV 1 and 2 Ab/Ag Screen Non-Reactive Normal NRCT [facility] Comment on above: Result Comment: This [...] #### Clyde ALARCON, 1989-11, HA1C, CBCA, 5196-1, 76950-1, 76354-7, 2131-9, 70956-1, 8014-3, 79064-7 #### [facility] ([id number]) [address] [place] [address], [address] [place] [address] Rubella virus IgG Qn (S)on 0 12-11-2023 RUBELLA IgG 30 IU/mL Normal [facility] Comment on above: Result Comment: Interpretation-------- <8 NEGATIVE-considered Not Immune 8-9 EQUIVOCAL-consider retesting with new specimen >9 POSITIVE-considered Immune Performed By: #### Clyde ALARCON, 1989-11, HA1C, CBCA, 5196-1, 50216-8, 26759-5, 9, 66105-0, 8014-3, 30613-8 #### [facility] ([id number]) [address] [place] [address], [address] [place] [address] T. pallidum IgG+IgM IA Ql (S )on 12-11-2023 Syphilis Total <0.2 Normal 0.0-0.8 [facility] Comment on above: Result Comment: NON REACTIVE No serologic evidence of infection to Treponema pallidum (syphilis). Repeat testing may be considered in patients with suspected acute or primary syphilis in 2 to 4 weeks. Performed By: ###Em Tang MP, 1989-11, HA1C, CBCA, 5196-1, 47054-6, 64645-3, 2132-9, 38297-0, 8014-3, 01177-8 #### [facility] ([id number]) [address] [facility], [address] [place] [address] VITAMIN B12on 12-11-2023 Cobalamin (Vitamin B12) [Mass/Vol] 142 pg/mL Low 180-914 [facility] Comment on above: Performed By: #### C AGNES, 1989-11, HA1C, CBCA, 5196-1, 41328-9, 79640-3, 9, 67799-9, 8014-3, 14591-8 #### [facility] ([id number]) [address] [facility], [address] [place] [address] Vitamin D+Metabolites [Mass/ Vol]on 12-11-2023 VITAMIN D 25 HYD TOT 21.8 ng/mL Low 30-100 [facility] Comment on above: Result Comment: Vitamin D status 25 [place] Vitamin D Deficiency <20 ng/mL Insufficiency 20-29 ng/mL Sufficiency 30-100 ng/mL Toxicity >100 ng/mL NOTE: A pediatric reference range has not been established by the pipe stem sawyer of this kit. The [employer] recommends a Vitamin D level of = or >20ng/mL in infants and children. Performed By: #### C AGNES, 1989-11, HA1C, CBCA, 5196-1, 72681-1, 07245-2, 9, 80464-5, 8014-3, 85094-9 #### [facility] ([id number]) [address] [facility], [address] [place] [address] SARS/FLU A+B/RSV by NAAT/Mol ecularon 10-08-2023 SARS/FLU [...] operators who are performing tests using either [employer] or [employer] systems and is limited to laboratories that [...] repeat. Fact Sheet for Healthcare Providers: https://www.fda.gov/media /456481/download Fact Sheet for Patients: https://www.fda.gov/media /408817/download [facility] Comment on above: Performed By: #### C OVFLR #### [facility] ([id number]) [address] [place] [address], [place] [address] Consultation Noteon 12-18-19 Consultation Note [id number]#1.00CD:12 7 Normal [facility] Ambulatory Patient Education on 06-04-2018 Ambulatory Patient Education Patient Education MaterialsName: Comfort Maldonado Current Date: 06/04/2018 11:43:12 [place] 1995 following sheet(s) are the Patient Education Leaflets for Comfort Maldonado Normal [facility] Gastroenterology Office/Clin ic Noteon 06-04-2018 Gastroenterology [...] her being referred to Dr. Bowers at [facility] in [place]. She states that she had a colonoscopy [...] Endoscopy history: Colonoscopy done on 04/17/2018 at [facility] Constitutional: 45 pound weight loss since [...] she was placed on steroids at the [facility] GI physician. She states that [...] _Trang Harrison MD 06/05/18 15:58 EST Normal [facility] Vital Signs Date Time Vital Sign Value Performing Clinician Facility 06-24-2024 15:02-0500 Body weight 72.12 kg Sherry LivingstonKraken Work Phone: [facility] 06-24-2024 15:02-0500 Diastolic blood pressure 70 mm[Hg] Sherry Aung DO Work Phone: [facility] 06-24-2024 15:02-0500 Systolic blood pressure 120 mm[Hg] Sherry Aung DO Work Phone: [facility] 06-17-2024 14:18-0500 Body weight 73.21 kg Sayra Andrews PA Work Phone: [facility] 06-17-2024 14:18-0500 Diastolic blood pressure 62 mm[Hg] Sayra Andrews PA Work Phone: [facility] 06-17-2024 14:18-0500 Systolic blood pressure 100 mm[Hg] Sayra Andrews PA Work Phone: [facility] 06-11-2024 10:48-0500 Body height 155 cm Devyn Roman MD Work Phone: [facility] 06-11-2024 10:48-0500 Body mass index (BMI) [Ratio] 29.98 kg/m2 Devyn Roman MD Work Phone: [facility] 06-11-2024 10:48-0500 Body weight 72.03 kg Dveyn Roman MD Work Phone: [facility] 06-11-2024 10:48-0500 Diastolic blood pressure 83 mm[Hg] Devyn Roman MD Work Phone: [facility] 06-11-2024 10:48-0500 Heart rate 105 /min Devyn Roman MD Work Phone: [facility] 06-11-2024 10:48-0500 Systolic blood pressure 118 mm[Hg] Devyn Roman MD Work Phone: [facility] 06-10-2024 08:43-0500 Body weight 72.12 kg Sherry Aung DO Work Phone: [facility] 06-10-2024 08:43-0500 Diastolic blood pressure 70 mm[Hg] Sherry Aung DO Work Phone: [facility] 06-10-2024 08:43-0500 Systolic blood pressure 110 mm[Hg] Sherry Aung DO Work Phone: [facility] 06-05-2024 09:00-0500 Body mass index (BMI) [Ratio] 26.55 kg/m2 [facility] 1 [facility] 06-05-2024 09:00-0500 Body temperature 98.4 [degF] [facility] 1 [facility] 06-05-2024 09:00-0500 Body weight 63.78 kg [facility] 1 [facility] 06-05-2024 09:00-0500 Diastolic blood pressure 73 mm[Hg] [facility] 1 [facility] 06-05-2024 09:00-0500 Heart rate 99 /min [facility] 1 [facility] 06-05-2024 09:00-0500 Respiratory rate 16 /min [facility] 1 [facility] 06-05-2024 09:00-0500 Systolic blood pressure 114 mm[Hg] [facility] 1 [facility] 06-03-2024 08:25-0500 Body weight 70.76 kg Sherry [...] 05-15-2024 16:05-0400 Diastolic blood pressure 72 mm[Hg] [address] 05-15-2024 16:05-0400 Heart rate 93 /min [address] 05-15-2024 16:05-0400 Systolic blood pressure 110 mm[Hg] [address] 05-02-2024 09:35-0400 Body weight 68.58 kg Sayra BROWN Work Phone: [facility] 05-02-2024 09:35-0400 Diastolic blood pressure 68 mm[Hg] Sayra BROWN Work Phone: [facility] 05-02-2024 09:35-0400 Systolic blood pressure 110 mm[Hg] Sayra BROWN Work Phone: [facility] 10-25-2023 11:28-0400 Body temperature 99.1 [degF] [facility] 2 [facility] 10-25-2023 11:28-0400 Diastolic blood pressure 62 mm[Hg] [facility] 2 [facility] 10-25-2023 11:28-0400 Heart rate 74 /min [facility] 2 [facility] 10-25-2023 11:28-0400 Respiratory rate 18 /min [facility] 2 [facility] 10-25-2023 11:28-0400 Systolic blood pressure 97 mm[Hg] [facility] 2 [facility] 10-25-2023 08:54-0400 Body mass index (BMI) [Ratio] 25.32 kg/m2 [facility] 2 [facility] 10-25-2023 08:54-0400 Body weight 60.78 kg [facility] 2 [facility] 08-30-2023 11:44-0500 Body temperature 98.2 [degF] [facility] 1 [facility] 08-30-2023 11:44-0500 Diastolic blood pressure 68 mm[Hg] [facility] 1 [facility] 08-30-2023 11:44-0500 Heart rate 73 /min [facility] 1 [facility] 08-30-2023 11:44-0500 SaO2% (BldA) [Mass fraction] 98 % [facility] 1 [facility] 08-30-2023 11:44-0500 Systolic blood pressure 99 mm[Hg] [facility] 1 [facility] 08-30-2023 09:00-0500 Body mass index (BMI) [Ratio] 26.38 kg/m2 [facility] 1 [facility] 08-30-2023 09:00-0500 Body weight 63.32 kg [facility] 1 [facility] Encounters Encounter Date Encounter Type Care Provider Facility Start: 06-24-2024 End: 06-24-2024 Office outpatient visit 15 minutes Sherry Aung DO Work Phone: [facility] Comment on above: 37 weeks gestation o f ; Third trimester Start: 06-24-2024 End: 06-24-2024 Bamboo flowsheet Sherry Aung DO Work Phone: [facility] Start: 06-24-2024 End: 06-24-2024 Bamboo flowsheet Sherry Aung DO Work Phone: [facility] Start: 06-17-2024 End: 06-17-2024 Bamboo flowsheet Sayra BROWN Work Phone: [facility] Start: 06-17-2024 End: 06-17-2024 Bamboo flowsheet Sayra BROWN Work Phone: [facility] Start: 06-17-2024 End: 06-17-2024 Office outpatient visit 15 minutes Sayra BROWN Work Phone: [facility] Comment on above: 36 weeks gestation o f ; Third trimester Start: 06-17-2024 End: 06-17-2024 ambulatory SAYRA ANDREWS Not Available Start: 06-11-2024 End: 06-11-2024 Office outpatient visit 15 minutes Devyn Roman MD Work Phone: [facility] Comment on above: Crohn's disease of b oth small and large intestine with intestinal obstruction (CMS-HCC) (Primary Dx) Start: 06-11-2024 End: 06-11-2024 ambulatory SHERRY [facility] Start: 06-10-2024 End: 06-10-2024 Bamboo flowsheet Sherry Aung DO Work Phone: [facility] Start: 06-10-2024 End: 06-10-2024 Bamboo flowsheet Sherry Aung DO Work Phone: [facility] Start: 06-10-2024 End: 06-10-2024 Office outpatient visit 15 minutes Sherry Aung DO Work Phone: [facility] Comment on above: Third trimester preg delfina; 35 weeks gestation of ; Herpes Start: 06-10-2024 End: 06-10-2024 ambulatory SHERRY AUNG Not Available Start: 06-05-2024 End: 06-05-2024 ambulatory Pplc [facility] Infusion Chair 1 [facility] Comment on above: Crohn's disease of s mall and large intestines with complication (CMS-HCC) (Primary Dx) Start: 06-03-2024 End: 06-03-2024 Bamboo flowsheet Sherry Aung DO Work Phone: [facility] Start: 06-03-2024 End: 06-03-2024 Bamboo flowsheet Sherry Aung DO Work Phone: [facility] Start: 06-03-2024 End: 06-03-2024 Office outpatient visit 15 minutes Sherry Aung DO Work Phone: [facility] Comment on above: Third trimester preg delfina; 34 weeks gestation of Start: 06-03-2024 End: 06-03-2024 ambulatory SHERRY AUNG Not Available Start: 05-30-2024 End: 05-30-2024 ambulatory SHERRY R AUNG [facility] Start: 05-17-2024 End: 05-17-2024 Orders Only Akila Snider RN [facility] Comment on above: growth restric tion antepartum (Primary Dx); Crohn's disease of both small and large intestine with intestinal obstruction (CMS-HCC); 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 Start: 05-16-2024 End: 05-16-2024 Bamboo flowsheet Sherry Aung DO Work Phone: [facility] Start: 05-16-2024 End: 05-16-2024 Bamboo flowsheet Sherry Aung DO Work Phone: [facility] Start: 05-16-2024 End: 05-16-2024 Office outpatient visit 15 minutes Sherry Aung DO Work Phone: [facility] Comment on above: 32 weeks gestation o f ; Third trimester Start: 05-16-2024 End: 05-16-2024 ambulatory SHERRY AUNG Not Available Start: 05-15-2024 End: 05-15-2024 Orders Only Jenni Owen [facility] at [facility] Comment on above: growth restric tion antepartum (Primary Dx) Crohn's disease of b oth small and large intestine with intestinal obstruction (CMS-HCC) (Primary Dx); growth restriction antepartum Start: 05-02-2024 End: 05-02-2024 Bamboo flowsheet Sayra BROWN Work Phone: [facility] Start: 05-02-2024 End: 05-02-2024 Bamboo flowsheet Sayra BROWN Work Phone: [facility] Start: 05-02-2024 End: 05-02-2024 Office outpatient visit 15 minutes Sayra BROWN Work Phone: [facility] Comment on above: 30 weeks gestation o f (Primary Dx); Third trimester Start: 05-02-2024 End: 05-02-2024 ambulatory SAYRA ANDREWS Not Available Start: 04-30-2024 End: 04-30-2024 ambulatory [facility] Start: 04-17-2024 End: 04-17-2024 ambulatory [facility] Start: 04-10-2024 End: 04-10-2024 ambulatory PREMA ABRAHAM [facility] Start: 04-04-2024 End: 04-04-2024 ambulatory SHERRY AUNG Not Available Start: 04-02-2024 End: 04-02-2024 ambulatory SHERRY R [facility] Start: 03-29-2024 End: 03-29-2024 ambulatory [facility] Start: 03-28-2024 End: 03-28-2024 ambulatory DEVYN NICOLASHID [facility] Start: 03-28-2024 End: 03-28-2024 ambulatory SHERRY R [facility] Start: 03-19-2024 End: 03-19-[address] [facility] Start: 03-05-2024 End: 03-05-2024 ambulatory SAYRA ANDREWS Not Available Start: 02-29-2024 End: 02-29-2024 ambulatory [facility] Start: 02-20-2024 End: 02-20-2024 ambulatory SHERRY R [facility] Start: 02-14-2024 End: 02-14-2024 ambulatory [facility] Start: 02-06-2024 End: 02-06-2024 ambulatory SHERRY AUNG Not Available Start: 01-09-2024 End: 01-09-2024 ambulatory SHERRY AUNG Not Available Start: 12-20-2023 End: 12-20-2023 ambulatory [facility] Start: 12-11-2023 End: 12-11-2023 [facility] Start: 12-08-2023 End: 12-08-2023 ambulatory SHERRY AUNG Not Available Start: 11-30-2023 End: 11-30-2023 ambulatory [facility] Start: 10-25-2023 End: 10-25-2023 ambulatory [facility] Infusion Chair 2 [facility] Comment on above: Crohn's disease of s mall and large intestines with complication (CMS-HCC) (Primary Dx) Start: 10-24-2023 Telephone encounter Amanda Cole RN [facility] Start: 10-08-2023 End: 10-08-2023 Emergency department patient visit PREMA ABRAHAM [facility] Start: 08-30-2023 End: 08-30-2023 ambulatory [facility] Infusion Chair 1 [facility] Comment on above: Crohn's disease of s mall and large intestines with complication (CMS-HCC) (Primary Dx) Start: 09-17-2019 End: 09-18-2019 Patient encounter procedure PREMA ABRAHAM Facility: Start: 06-04-2018 End: 06-05-2018 Patient encounter procedure Trang Harrison [facility] Procedures Date Procedure Procedure Detail Performing Clinician Start: 06-24-2024 Urnls dip stick/tabl et rgnt non-auto w/o micrscp Sherry Aung DO Work Phone: Start: 06-17-2024 Urnls dip stick/tabl et rgnt [...] ion [Identifier] in Cervix by Cyto stain [facility] 1 Start: 03-04-2021 Adult depression scr eening assessment [facility] 1 Start: 04-14-2020 H/O: colostomy Colostomy status [facility] 1 Start: 12-03-2019 H/O: ileostomy Ileostomy status [facility] 1 Plan of Treatment Date Care Activity Detail Author Start: 02-05-2027 Screening for malign ant neoplasm of cervix Pap Smear [facility] Start: 06-11-2025 Adult BMI Screening Adult BMI Screen ing [facility] Start: 06-11-2025 Tobacco Screening Tobacco Screening [facility] Start: 06-05-2025 Adult BMI Screening Adult BMI Screen ing [facility] Start: 05-17-2025 End: 05-17-2025 US MFM with or without consult US MFM with or without consult Imaging Routine growth restriction antepartum Crohn's disease of both small and large intestine with intestinal obstruction (CMS-HCC) 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 Expected: 05/17/2025 (Approximate), Expires: 05/17/2025 [facility] Comment on above: Expected: 05/17/2025 (Approximate), Expires: 05/17/2025 Start: 05-15-2025 Tobacco Screening Tobacco Screening [facility] Start: 04-17-2025 Adult BMI Screening Adult BMI Screen ing [facility] Start: 11-11-2024 Screening for malign ant neoplasm of cervix Pap Smear [facility] Start: 10-24-2024 Adult BMI Screening Adult BMI Screen ing [facility] Start: 10-07-2024 Tobacco Screening Tobacco Screening [facility] Start: 08-30-2024 Adult BMI Screening Adult BMI Screen ing [facility] Start: 08-12-2024 End: 08-12-2024 Patient encounter procedure 08/12/2024 8:30 AM EST Office Visit [facility] [address] [facility] [address] [place] [address] Suresh Diaz MD [address] [facility] [address] [place] [address] [facility] Start: 08-01-2024 End: 08-01-2024 ambulatory 08/01/2024 9:30 AM EST Infusion [facility] [address] [place] [phone] [facility] Start: 07-01-2024 End: 07-01-2024 Patient encounter procedure 07/01/2024 1:50 PM EST Routine [facility] [address] [place] [address] Sayra Andrews PA [address] [place], [place] [address] [facility] Start: 06-24-2024 End: 06-24-2024 Patient encounter procedure [facility] Comment on above: Arrived Start: 06-17-2024 End: 06-17-2024 Patient encounter procedure 06/17/2024 1:50 PM EST Routine [facility] [address] [place] [address] Sayra Andrews, PA [address] [place], [place] [id number] [facility] Start: 06-11-2024 End: 06-11-2024 Patient encounter procedure [facility] Start: 06-10-2024 End: 06-10-2025 Strep B DNA [...] EST Infusion [facility] [address] [facility] [facility] [address] [place] [phone] [facility] Start: 06-03-2024 End: 06-03-2024 Patient encounter procedure [facility] Comment on above: Arrived Start: 05-30-2024 End: 05-30-2024 Patient encounter procedure 05/30/2024 3:00 PM EDT Appointment [facility] [address] [place] [address] [facility] Start: 05-16-2024 End: 05-16-2024 Patient encounter procedure [facility] Comment on above: Arrived Start: 05-10-2024 Tobacco Screening Tobacco Screening [facility] Start: 05-02-2024 End: 05-02-2024 Patient encounter procedure 05/02/2024 9:30 AM EDT Routine [facility] [address] [place] [phone] Sayra Andrews PA [address] [place] [address] Arrived [facility] Comment on above: Arrived Start: 03-31-2024 Influenza vaccination Influenza Vacc ine [facility] Start: 12-20-2023 End: 12-20-2023 ambulatory 12/20/2023 9:00 AM EDT Infusion [facility] [address] [place] [address] [facility] Start: 11-30-2023 End: 11-30-2023 Patient encounter procedure 11/30/2023 9:30 AM EDT Office Visit [facility] [address] [place] [address] Suresh Diaz MD [address] [facility] [address] [place] [address] [facility] Start: 10-25-2023 End: 10-25-2023 ambulatory 10/25/2023 9:00 AM EDT Infusion [facility] [address] [place] [phone] [facility] Start: 03-31-2023 Influenza vaccination Influenza Vacc ine [facility] Start: 03-04-2022 Depression Screening Depression Scre ening [facility] Start: 2012 DTaP,Tdap and Td Vaccines (1 - Tdap) DTaP,Tdap and Td Vaccines (1 - Tdap) [facility] Start: 2011 Adult BMI Follow Up Plan Adult BMI Follow Up Plan [facility] Start: 2005 Depression Screening Depression Scre ening [facility] End: 10-24-2024 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[employer] Lab Routine Crohn's disease of small and large intestines with complication ([facility]-HCC) 1 Occurrences starting 10/25/2023 until 10/24/2024 [facility]: Comment on above: 1 Occurrences starti ng 10/25/2023 until 10/24/2024 Payers Date Payer Category Payer Medicaid [id number] 2022 Medicaid [id number] 1995 Unknown [id number] 2.16.8 40.1.220413.3.579.2.196 1993 Unknown [id number] 2.16.84 0.1.932340.3.579.2.593 1993 Unknown [id number] 2.16.8 40.1.703238.3.579.2.1286 1993 Unknown [id number] 2.16.8 40.1.339463.3.579.2.1286 1993 Unknown [id number] 2.16.8 40.1.773961.3.579.2.1286 1993 Unknown [id number] 2.16.8 40.1.018088.3.579.2.1286 1993 Unknown [id number] 2.16.8 40.1.807173.3.579.2.1285 1993 Unknown [id number] 2.16.8 40.1.257669.3.579.2.1285 1993 Unknown [id number] 2.16.8 40.1.655286.3.579.2.1285 1993 Unknown [id number] 2.16.8 40.1.853260.3.579.2.1285 1993 Unknown [id number] 2.16.8 40.1.991405.3.579.2.1285 1993 Unknown [id number] 2.16.8 40.1.014425.3.579.2.1285 1993 Unknown [id number] 2.16.8 40.1.291642.3.579.2.1285 1993 Unknown [id number] 2.16.8 40.1.474949.3.579.2.1285 1993 Unknown [id number] 2.16.8 40.1.068663.3.579.2.1285 1993 Unknown [id number] 2.16.8 40.1.564465.3.579.2.1285 1993 Unknown [id number] 2.16.8 40.1.623070.3.579.2.1285 1993 Unknown [id number] 2.16.8 40.1.044244.3.579.2.1285 1993 Unknown [id number] 2.16.8 40.1.421218.3.579.2.1285 1993 Unknown [id number] 2.16.8 40.1.618277.3.579.2.1285 1993 Unknown [id number] 2.16.8 40.1.814087.3.579.2.1285 1993 Unknown [id number] 2.16.8 40.1.670003.3.579.2.1286 1993 Unknown [id number] 2.16.8 40.1.644508.3.579.2.1286 1993 Unknown [id number] 2.16.8 40.1.991547.3.579.2.1286 1993 Unknown [id number] 2.16.8 40.1.171140.3.579.2.1286 1993 Unknown [id number] 2.16.8 40.1.731674.3.579.2.1286 1993 Unknown [id number] 2.16.8 40.1.721498.3.579.2.1286 1993 Unknown [id number] 2.16.8 40.1.351161.3.579.2.1286 1993 Unknown [id number] 2.16.84 0.1.148286.3.579.2.9 1993 Unknown [id number] 2.16.84 0.1.300796.3.579.2.1259 1993 Unknown [id number] 2.16.84 0.1.504076.3.579.2.9 1993 Unknown [id number] 2.16.84 0.1.829303.3.579.2.9 1993 Unknown [id number] 2.16.84 0.1.669639.3.579.2.9 1993 Unknown [id number] 2.16.84 0.1.171389.3.579.2.1259 1993 Unknown [id number] 2.16.84 0.1.569079.3.579.2.9 1993 Unknown [id number] 2.16.84 0.1.302001.3.579.2.9 1993 Unknown [id number] 2.16.84 0.1.381560.3.579.2.1259 1993 Unknown [id number] 2.16.84 0.1.737766.3.579.2.1259 1959 Self-pay [id number] 07-31-1799 Self-pay Social History Date Type Detail Facility Start: 07-05-2022 End: 12-08-2023 Tobacco smoking status NHIS Never smoked tobacco [facility] Start: 07-05-2022 End: 12-08-2023 Tobacco use and exposure Smokeless tobacco non-user [facility] Start: 05-10-2023 End: 10-08-2023 Alcohol intake Current drinker of alcohol (finding) [facility] Start: 05-10-2023 End: 12-08-2023 Alcohol intake [facility] Start: 08-06-2020 End: 12-08-2023 Social connection and isolation panel [facility] Do you belong to any clubs or organizations such as baptism groups, unions, fraternal or athletic groups, or school groups? No [facility] Are you now , , , , never or living with a partner? [facility] How often to you hav e a drink containing alcohol? 2-4 times a month [facility] Average Number of Drinks Not on file [facility] Do you feel stress - tense, restless, nervous, or anxious, or unable to sleep at night because your mind is troubled all the time - these days [OSQ] Only a little [facility] Start: 12-22-2021 Alcohol Comment socially [facility] Start: 1995 Sex Assigned At Not on file P [facility] Start: 05-02-2024 End: 06-24-2024 Alcoholic beverage intake Ex-drinker (finding) [facility] Start: 10-17-2023 [facility] Start: 10-16-2019 Sex Female (finding) [facility] Goals Date Patient Goal Desired Activity /State Personal health goal Comment on above: Formatting of this n ote might be different from the original. Evaluation of progress towards goal: Patient plans to return home with [facility] Clinical Notes 08-30-2023 to 06-24-2024 Paddy Garza LPN - 06/24/2024 2:40 PM STEPHANIE Cleaning - 06/17/2024 1:50 PM Suzy Snider RN - 06/11/2024 11:30 AM Joseline Roman MD - 06/11/2024 11:30 AM EST Note Date & Type Note Facility 06-24-2024 History of Presen t illness Narrative Reason [...] nursing note reviewed. Exam conducted with a breakfast and room attendant present. Vitals: There is no height or weight on file to calculate BMI. BP: 120/70 Patient's last menstrual period was 10/03/2023. ASSESSMENT & PLAN ICD-10-CM 1. 37 weeks gestation of Z3A.37 POCT urinalysis dipstick manually resulted 2. Third trimester Z34.93 POCT urinalysis dipstick manually resulted Patient presents today for a routine obstetrics appointment. Patient is currently 37w6d with a Estimated Date of Delivery: 07/09/24. RTC in 1 week. Documented by Paddy Garza LPN on behalf of: Sherry Horan DO documented in this encounter [facility] 06-17-2024 History of Presen t illness Narrative [...] Past Medical History: Diagnosis Date Crohn's disease ([facility]) Genital warts Herpes Ovarian cyst HISTORY PAST [...] documented in this encounter [facility] 06-11-2024 History of Presen t [...] small and large intestine with intestinal obstruction ([facility]) Ileostomy status ([facility]) Colostomy status ([facility]) Rectal stricture Crohn's disease of small and large intestines with complication ([facility]) Cyst of right ovary Poor growth affecting [...] Past Medical History: Diagnosis Date Crohn's colitis ([facility]-H[facility]) Fibromyalgia, primary Herpes Ovarian cyst REVIEW OF [...] DEVYN ROMAN MD documented in this encounter [email or web address] 06-10-[facility]24 History of Presen t illness Narrative [...] nursing note reviewed. Exam conducted with a breakfast and room attendant present. Vitals: There is no height or [...] x1 attempt. Patient tolerated well. Remicade Lot# [id number] Exp- 08/27/2026 Time out performed prior to medication administration. Name, , medication(s) verified IV Infusion END time: 1125 patient infusion complete. IV discontinued, catheter intact, vitals WNL. Patient tolerated infusion well PIV flushed with 10 ml of 0.9% NS after medication infused documented in this encounter [employer] 06-03-2024 History of Presen t illness Narrative [...] nursing note reviewed. Exam conducted with a breakfast and room attendant present. Vitals: There is no height or [...] for routine OB appointment with ADRIANNA and LARS's consent to be signed. Documented [...] nursing note reviewed. Exam conducted with a breakfast and room attendant present. Vitals: There is no height or [...] Estimated Date of Delivery: 07/09/24. Discussed recent [facility] appointment with patient and delivery due to SGA & Crohn's Disease. Nursing will obtain office note from MFM appointment yesterday. Patient given order to have NST/BPP done locally at [facility]. Documented by Paddy Garza LPN on behalf [...] all scheduled appointments documented in this encounter [facility] [employer] 05-02-2024 History of Presen t illness Narrative [...] tolerated well. Avsola x 2 vials, lot# [id number], exp date Avsola x 1 vial, lot# [id number], exp date 02/27/2027 Time out performed with JARIO Oh. 300 mg of avsola to be mixed and administered to patient per current treatment plan orders. 1128 am patient infusion complete. IV discontinued, catheter intact, vitals WNL. Patient tolerated infusion well Patient due for their Tuberculosis lab draw; order printed and given to patient. Instructed patient to have drawn; patient verbalized understanding of info given. documented in this encounter [facility] 10-24-2023 Miscellaneous Notes Formattin g of this note might be different from the original. Patient currently receiving Avsola 5mg/kg every 8 weeks. 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 Prior auth request forms completed for Remicade 5mg/kg to be given every 56 days, faxed to [phone] Remicade approved for 5mg/kg (400mg) for 7 visits from 10/25/2023-10/23/2024. Auth # [id number] Referral placed. Therapy plan updated. Flowsheet updated. documented in this encounter [facility] 10-24-2023 Telephone encount er Note Patient currently receiving Avsola 5mg/kg every 8 weeks. 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 Prior auth request forms completed for Remicade 5mg/kg to be given every 56 days, faxed to [phone] [facility] 10-24-2023 Telephone encount er Note Remicade approved for 5mg/kg (400mg) for 7 visits from 10/25/2023-10/23/2024. Auth # [id number] Referral placed. Therapy plan updated. Flowsheet updated. [facility] 08-30-2023 History of Presen t illness Narrative [...] (CMS-HCC)- Primary documented [facility] Diagnosis Crohn's disease of small and large intestines with complication (CMS-HCC)- [facility] Diagnosis 30 weeks gestation of - Primary Third trimester state, incidental [facility] Diagnosis Crohn's disease of both small and large intestine with intestinal obstruction (CMS-HCC)- Primary growth restriction antepartum growth restriction antepartum- Primary [facility] Diagnosis Crohn's disease [...] fetus to left [facility] Diagnosis Third trimester state, incidental 34 weeks gestation of [facility] Diagnosis Crohn's disease of small and large intestines with complication (CMS-HCC)- Primary [facility] Diagnosis Third trimester state, incidental 35 weeks gestation of Herpes Herpes simplex without mention of complication [facility] Diagnosis Crohn's disease of both small and large intestine with intestinal obstruction (CMS-HCC)- Primary [facility] Diagnosis 36 weeks gestation of Third trimester state, incidental [facility] Diagnosis 37 weeks gestation of Third trimester state, incidental documented in this [facility]ructions[facility] on filedocumented in [facility] on filedocumented in this [facility] SystemInstructionsNot on filedocumented in this encounterProOhio[facility] SystemInstructionsNot on filedocumented in this [facility] InstructionsNot on filedocumented in this [facility] InstructionsNot on filedocumented in [facility] Summary Purpose Family History [...] section and content) DATE CREATED AUTHOR 07/08/2018 [facility] DATE CREATED AUTHOR AUTHOR'S ORGANIZ ATION 09/20/2019 [facility] DATE CREATED AUTHOR AUTHOR'S ORGANIZ ATION 12/18/2019 [facility] DATE CREATED AUTHOR AUTHOR'S ORGANIZ ATION 04/03/2024 [facility] DATE CREATED AUTHOR AUTHOR'S ORGANIZ ATION 06/06/2024 [facility] DATE CREATED AUTHOR AUTHOR'S ORGANIZ ATION 06/13/2024 [facility] DATE CREATED AUTHOR AUTHOR'S ORGANIZ ATION 06/19/2024 [facility] Special[facility] EPIC Reason for [...] 10 MG INFUSION Prema Abraham MD [address] [place] [address] [facility] [address] [facility] [place] [phone] Referral ID Status Reason Start Date Expiration Date V isits Requested Visits Authorized [id number] Authorized 02/02/2023 02/02/2024 7 7 Reason Comments Outpatient Infusion Avsola Reason Comments Routine Visit Reason Comments add on NST for FGR Specialty Diagnoses / Procedures Referred By Theodore kohli Referred To Contact Maternal and Medicine Diagnoses growth restriction antepartum Procedures nonstress test - Maternal Medicine Devyn Roman MD [address] [facility] [address] [place] [address] Phone: tel: fax: Maternal- Medicine at [facility] [address] [place] [address] Phone: tel: fax: Referral ID Status Reason Start Date Expiration Date V isits Requested Visits Authorized [id number] Pending Review 05/15/2024 05/15/2025 1 1 Reason Comments Outpatient Infusion Remicade Specialty Diagnoses / Procedures Referred By Theodore kohli Referred To Contact Gastroenterology Diagnoses Crohn's disease of both small and large intestine with unspecified complications Remicade 5mg/kg every 56 days ( 400 mg) Auth'd from 10/25/2023-10/23/2024 for 7 Visits, HK/CF, Crohn's Procedures RI INFLIXIMAB INJECTION INFUSION Prema Abraham MD [address] [place] [address] Phone: tel: fax: [facility] [address] [place] [phone] Phone: tel: fax: Referral ID Status Reason Start Date Expiration Date V isits Requested Visits Authorized [id number] Authorized 12/20/2023 12/19/2024 7 7 Reason Comments growth restriction history of bowel resection Chrohns disease Care Teams (unrecognized sec tion and content) Department Administrator Relationship Specialty Start Date End Date Prema Abraham MD [address] [place] [phone] PCP - General Family Medicine 12/17/19 Department Administrator Relationship Specialty Start Date End Date Prema Abraham MD [address] [place] [id number] PCP - General Family Medicine 10/08/23 Department Administrator Relationship Specialty Start Date End Date Prema Abraham MD [address] [place] [id number] PCP - General Family Medicine 10/08/23 Department Administrator Relationship Specialty Start Date End Date Prema Abraham MD [address] [place] [id number] PCP - General Family Medicine 02/29/24 Department Administrator Relationship Specialty Start Date End Date Prema Abraham MD [address] [place] [id number] PCP - General Family Medicine 02/29/24 Department Administrator Relationship Specialty Start Date End Date Prema Abraham MD [address] [place] [id number] PCP - General Family Medicine 02/29/24 Department Administrator Relationship Specialty Start Date End Date Prema Abrhaam MD [address] [place] [id number] PCP - General Family Medicine 02/29/24 Department Administrator Relationship Specialty Start Date End Date Prema Abraham MD [address] [place] [address] PCP - General Family Medicine 02/29/24 FOR [...] BE BASED ON THE PRIMARY CLINICAL RECORDS. [employer] [facility]. provides no warranty or guarantee of the accuracy or completeness of information in this document.
--- NOTE | 2024-06-25 08:55 | US_ITS ---
[place] [id number] Patient Name: ZAINAB SAAVEDRA MRN: [id number] date: 1995 Sex: F [facility] Current Patient Location: Accession/Order Number: [id number] Exam Date: 06/25/2024 09:00 Report Date: 06/26/2024 06:17 At the request of: SHERRY REYNA Procedure: US OB BPP w non-stress EXAMINATION: US OB BPP w non-stress HISTORY:Crohn's disease with complication COMPARISON: Ultrasound biophysical 06/18/2024 TECHNIQUE: Ultrasound biophysical profile was performed in the radiology department. BREATHING MOVEMENTS: 2 GROSS BODY MOVEMENTS: 2 TONE: 2 QUALITATIVE AMNIOTIC FLUID VOLUME: 2 PRESENTATION: CEPHALIC HEART RATE: 162.65 bpm AMNIOTIC FLUID VOLUME: 10.93 cm GESTATIONAL AGE: 38 weeks 0 days US/US OB BPP w non-stress IMPRESSION: Total biophysical profile score: 8 Electronically authenticated by: SUKHWINDER RASHID Date: 06/26/2024 06:17
[2024-06-25 09:16] VITALS: BP 119/78; PULSE 125
== END 2024-06-25 10:00 | disposition home or self-care (01) ==
LOC: US 06:24 → FBC 08:47
PROVIDERS: PCP Family Medicine; Visit Provider Obstetrics & Gynecology
DX: O26.893 Other specified pregnancy related conditions, third trimester (principal); Z3A.38 38 weeks gestation of pregnancy
CPT/HCPCS: 76818

== ENCOUNTER 2024-06-28 08:16 | Outpatient (OUT) | payer MEDICAID, SELFPAY ==
--- OUTSIDE RECORDS SUMMARY | 2024-06-28 08:20 | XMS_ITS | CCD ---
Author Organization [facility] Care Team Providers Care Police Shift Commander Name Role Phone Trang Harrison Unavailable Unavailable Prema Abraham Unavailable Unavaila PREMA Mahan Admitting Unavailable PREMA ABRAHAM Attending Unavailable PREMA ABRAHAM Primary Care Unavailable ALLISON TOWNSEND V Consulting Unavailable PREMA ABRAHAM Consulting Unavailable Prema Abraham MD Primary Care Provider Prema Abraham MD Primary Care Provider [phone] PREMA ABRAHAM Primary Care Unavailable SHERRY HORAN Referring Unavailable PREMA ABRAHAM Referring Unavailable PREMA ABRAHAM Primary Care Unavailable Unavailable Primary Care Provider UnavailPrema Sheriff MD Primary Care Provider [phone] PREMA ABRAHAM Referring Unavailable PREMA ABRAHAM Primary [...] SAYRA Attending Unavailable AUNG, SHERRY Attending Unavailable Medications [...] 10 tablet 0 10/08/2023 Active Vit-Fe Fumarate-FA (CamStent VITAMINS PO) (18 sources) Start: 11-16-2023 take 1 dose by mouth once daily Vit-Fe Fumarate-FA (CamStent VITAMINS PO) 1 each Daily 11/16/2023 Active [...] [facility] Comment on above: large Clarity, UA Clear [facility] Color, UA Yellow [facility] Glucose, UA Negative Negative - 2000(110) ++++ mg/dL [facility] Interpretation and review of laboratory results Abnormal [facility] Ketones, UA Positive Negative - 160(16) ++++ mg/dL [facility] Comment on above: trace Leukocytes, UA Negative Negative - 500+++ Sandra/mcL [facility] Nitrite, UA Negative Negative - Positive [facility] pH, UA 6.5 5 - 9 [facility] Protein, UA Negative Negative - 1999(20) ++++ mg/dL [facility] Spec Grav, UA 1.02 1 - 1.03 [facility] Urobilinogen, UA 0.2 0.2 - 12 mg/dL [facility] Urinalysis macro (dipstick) panel (U)on 06-17-2024 [...] Abnormal [facility] Ketones, UA Positive Negative - 160(16) ++++ mg/dL [facility] Comment on above: trace Leukocytes, UA Negative Negative - 500+++ Sandra/mcL [facility] Nitrite, UA Negative Negative - Positive [facility] pH, UA 5.5 5 - 9 [facility] Protein, UA Negative Negative - 1999(20) ++++ mg/dL [facility] Spec Grav, UA 1.01 1 - 1.03 [facility] Urobilinogen, UA 0.2 0.2 - 12 mg/dL [facility] Urinalysis macro (dipstick) panel (U)on 06-10-2024 Bilirubin, UA Negative Negative - 4(70) +++ mg/dL [facility] Blood, UA Positive Negative - 50 Kal/mcL [facility] Clarity, UA Clear [facility] Color, UA Yellow [facility] Glucose, UA Negative Negative - 1999(110) ++++ mg/dL [facility] Interpretation and review of laboratory results Abnormal [facility] Ketones, UA Negative Negative - 160(16) ++++ mg/dL [facility] Leukocytes, UA Negative Negative - 500+++ Sandar/mcL [facility] Nitrite, UA Negative Negative - Positive [facility] pH, UA 6 5 - 9 [facility] Protein, UA Negative Negative - 1999(20) ++++ mg/dL [facility] Healthcare Spec Grav, UA 1.02 1 - 1.03 [facility] Urobilinogen, UA 1.0 0.2 - 12 mg/dL [facility] Urinalysis macro (dipstick) panel (U)on 06-03-2024 Bilirubin, UA Negative Negative - 4(70) +++ mg/dL [facility] Blood, UA Negative Negative - 50 Kal/mcL [facility] Healthcare Clarity, UA Clear [facility] Color, UA Yellow [facility] Glucose, UA Negative Negative - 1999(110) ++++ mg/dL [facility] Interpretation and review of laboratory results Normal [facility] Ketones, UA Negative Negative - 160(16) ++++ mg/dL [facility] Leukocytes, UA Negative Negative - 500+++ Sandra/mcL [facility] Nitrite, UA Negative Negative - Positive [facility] pH, UA 5.5 5 - 9 [facility] Protein, UA Negative Negative - 1999(20) ++++ mg/dL [facility] Spec Grav, UA 1.03 1 - 1.03 [facility] Urobilinogen, UA 0.2 0.2 - 12 mg/dL [facility] Urinalysis macro (dipstick) panel (U)on 05-16-2024 Bilirubin, UA Negative Negative - 4(70) +++ mg/dL [facility] Blood, UA Positive Negative - 50 Kal/mcL [facility] Healthcare Comment on above: trace-intact Clarity, UA [...] Hospital pH, UA 6 5 - 9 [facility] Protein, UA Negative Negative - 1999(20) ++++ mg/dL [facility] Healthcare Spec Grav, UA 1.025 1 - 1.03 [facility] Urobilinogen, UA 0.2 0.2 - 12 mg/dL [facility] No Panel Informationon 05-15 Patient Name: Kishor Maldonado Patient : 1995 NST Objective Findings: Variability: Moderate Decelerations: None Accelerations: Yes Acoustic Stimulator: No Baseline: 130 BPM Uterine Irritability: Yes Contractions: Not present Comments: Uterine irritability noted, intercourse this morning. [facility] instructions/handout and labor precautions reviewed. NST Interpretation: Nonstress Test Interpretation: Reactive (Devyn Roman MD) NST performed by: Aislinn Richardson RN 05/15/2024 4:30 PM [facility] M. tuberculosis stim IFN-g p venkat (Bld)on 03-29-2024 Mitogen minus Nil Result 1.22 IU/mL Normal [facility] Comment on above: Performed By: #### C AGNES, 1989-11, HA1C, CBCA, 5196-1, 80739-6, 43452-6, 2132-9, 88327-4, 8014-3, 13853-1 #### [facility] ([id number]) [address] [place] [address], [address] [place] [address] Nil Result 0.02 IU/mL Normal [facility] Comment on above: Result Comment: NOTE Test Performed by: [facility] [place] [address] [place] [address] Public Accountant: Donnie Sanon Ph.D.; CLIA# [id number] Performed By: #### C AGNES, 1989-11, HA1C, CBCA, 5196-1, 92498-2, 09953-8, 2-9, 56768-9, 8014-3, 55042-8 #### [facility] ([id number]) [address] [facility], [address] [place] [address] QuantiFERON-Tb Gold Plus Result Negative Normal Negative [facility] Comment on above: Result Comment: [...] #### C AGNES, 1989-11, HA1C, CBCA, 5196-1, 79238-9, 47855-8, 2132-9, 81467-7, 8014-3, 05994-6 #### [facility] ([id number]) [address], [address] [place] [address] TB1 Ag minus Nil Result NEG 0.01 Normal [facility] Comment on above: Performed By: #### C AGNES, 1989-11, HA1C, CBCA, 5196-1, 26186-2, 35344-7, 2132-9, 25861-1, 8014-3, 79747-5 #### [facility] ([id number]) [address] [facility] [facility], [address] [place] [address] TB2 Ag minus Nil Result NEG 0.01 Normal [facility] Comment on above: Performed By: #### C AGNES, 1989-11, HA1C, CBCA, 5196-1, 45505-1, 74863-9, 2132-9, 73193-0, 8014-3, 64902-8 #### [facility] ([id number]) [address] [facility], [address] [place] [address] CBC AND AUTO DIFFon 12-10- 24 ABSOLUTE BASOPHIL 0.0 X10E9/L Normal 0.0-0.2 [facility] Comment on above: Performed By: #### C AGNES, 1989-11, HA1C, CBCA, 5196-1, 17745-3, 41199-6, 2132-9, 18843-3, 8014-3, 06987-2 #### [facility] ([id number]) [address], [address] [place] [address] ABSOLUTE NEUTROPHIL 5.5 X10E9/L Normal 1.5-6.6 [facility] Comment on above: Performed By: #### C AGNES, 1989-11, HA1C, CBCA, 5196-1, 89889-2, 99217-2, 2132-9, 76620-9, 8014-3, 37382-2 #### [facility] ([id number]) [address], [address] [place] [address] Basophils/100 WBC (Bld) 0.3 % Normal [facility] Comment on above: Performed By: #### C AGNES, 1989-11, HA1C, CBCA, 5196-1, 78113-6, 51680-5, 2132-9, 99874-3, 8014-3, 58678-2 #### [facility] ([id number]) [address], [address] [place] [address] Eosinophils (Bld) [#/Vol] 0.2 10*3/uL Normal 0.0-0.4 [facility] Comment on above: Performed By: #### C AGNES, 1989-11, HA1C, CBCA, 5196-1, 52632-2, 24307-7, 2132-9, 30382-7, 8014-3, 21408-7 #### [facility] ([id number]) [address], [address] [place] [address] Eosinophils/100 WBC (Bld) 2.6 % Normal [facility] Comment on above: Performed By: #### C AGNES, 1989-11, HA1C, CBCA, 5196-1, 37166-8, 54610-4, 2132-9, 11316-3, 8014-3, 10719-5 #### [facility] ([id number]) [address], [address] [place] [address] Erythrocyte distribution width (RBC) [Ratio] 13.3 % Normal 11.5-15.0 [facility] Comment on above: Performed By: #### C AGNES, 1989-11, HA1C, CBCA, 5196-1, 75752-4, 51750-0, 2131-9, 61764-9, 8014-3, 02659-2 #### [facility] ([id number]) [address], [address] [place] [address] Hematocrit (Bld) [Volume fraction] 40.5 % Normal 35-47 [facility] Comment on above: Performed By: #### C AGNES, 1989-11, HA1C, CBCA, 5196-1, 13495-9, 30313-8, 2131-9, 20150-6, 8014-3, 75283-2 #### [facility] ([id number]) [address], [address] [place] [address] Hemoglobin (Bld) [Mass/Vol] 14.2 g/dL Normal 11.7-15.5 [facility] Comment on above: Performed By: #### C AGNES, 1989-11, HA1C, CBCA, 5196-1, 45856-7, 80809-7, 2131-9, 71291-2, 8014-3, 08878-4 #### [facility] ([id number]) [address], [address] [place] [address] Lymphocytes (Bld) [#/Vol] 1.3 10*3/uL Normal 1.0-3.5 [facility] Comment on above: Performed By: #### C AGNES, 1989-11, HA1C, CBCA, 5196-1, 72827-4, 41636-3, 2131-9, 60803-9, 8014-3, 26173-6 #### [facility] ([id number]) [address], [address] [place] [address] Lymphocytes/100 WBC (Bld) 18.2 % Normal [facility] Comment on above: Performed By: #### C AGNES, 1989-11, HA1C, CBCA, 5196-1, 82915-7, 34092-5, 213-9, 10410-9, 8014-3, 39685-4 #### [facility] ([id number]) [address], [address] [place] [address] MCH (RBC) [Entitic mass] 30.7 pg Normal 27-34 [facility] Comment on above: Performed By: #### C AGNES, 1989-11, HA1C, CBCA, 5196-1, 72755-2, 25302-5, 2131-9, 54428-8, 8014-3, 89769-5 #### [facility] ([id number]) [address], [address] [place] [address] MCHC (RBC) [Mass/Vol] 35.2 g/dL Normal 32-36 [facility] Comment on above: Performed By: #### C AGNES, 1989-11, HA1C, CBCA, 5196-1, 75330-5, 56048-1, 2131-9, 66932-2, 8014-3, 87780-8 #### [facility] ([id number]) [address], [address] [place] [address] MCV (RBC) [Entitic vol] 87 fL Normal 80-100 [facility] Comment on above: Performed By: #### C AGNES, 1989-11, HA1C, CBCA, 5196-1, 39938-0, 49248-8, 2131-9, 03772-8, 8014-3, 05770-2 #### [facility] ([id number]) [address], [address] [place] [address] Monocytes (Bld) [#/Vol] 0.4 10*3/uL Normal 0-0.9 [facility] Comment on above: Performed By: #### C AGNES, 1989-11, HA1C, CBCA, 5196-1, 55509-0, 75159-6, 2132-9, 26333-7, 8014-3, 61133-2 #### [facility] ([id number]) [address], [address] [place] [address] Monocytes/100 WBC (Bld) 5.1 % Normal [facility] Comment on above: Performed By: #### C AGNES, 1989-11, HA1C, CBCA, 5196-1, 98364-9, 83794-6, 2131-9, 47768-5, 8014-3, 45843-6 #### [facility] ([id number]) [address], [address] [place] [address] Neutrophils/100 WBC (Bld) 73.8 % Normal [facility] Comment on above: Performed By: #### C AGNES, 1989-11, HA1C, CBCA, 5196-1, 24728-8, 24182-9, 2131-9, 30051-7, 8014-3, 02840-4 #### [facility] ([id number]) [address], [address] [place] [address] Platelet mean volume (Bld) [Entitic vol] 9.1 fL Normal 7-12 [facility] Comment on above: Performed By: #### C AGNES, 1989-11, HA1C, CBCA, 5196-1, 51426-7, 95192-1, 2131-9, 42992-1, 8014-3, 28487-8 #### [facility] ([id number]) [address], [address] [place] [address] Platelets (Bld) [#/Vol] 254 10*3/uL Normal 150-450 [facility] Comment on above: Performed By: #### C AGNES, 1989-11, HA1C, CBCA, 5196-1, 54746-4, 12976-4, 2131-9, 65384-1, 8014-3, 04366-3 #### [facility] ([id number]) [address], [address] [place] [address] RBC COUNT 4.63 X10E12/L Normal 3.80-5.20 [facility] Comment on above: Performed By: #### C AGNES, 1989-11, HA1C, CBCA, 5196-1, 04941-3, 60148-2, 2132-9, 45763-4, 8014-3, 50394-1 #### [facility] ([id number]) [address], [address] [place] [address] WBC (Bld) [#/Vol] 7.4 10*3/uL Normal 4.0-11.0 [facility] Comment on above: Performed By: #### C AGNES, 1989-11, HA1C, CBCA, 5196-1, 90006-6, 45137-0, 2-9, 69018-8, 8014-3, 31932-6 #### [facility] ([id number]) [address], [address] [place] [address] COMPREHENSIVE METABOLIC PANE Jesse 12-11-2023 Albumin [Mass/Vol] 4.3 g/dL Normal 3.2-5.3 [facility] Comment on above: Performed By: #### C AGNES, 1989-11, HA1C, CBCA, 5196-1, 31165-7, 70015-9, 2-9, 93729-7, 8014-3, 89949-2 #### [facility] ([id number]) [address] [place] [address], [address] [place] [address] ALP [Catalytic activity/Vol] 48 U/L Normal 39-130 [facility] Comment on above: Performed By: #### C AGNES, 1989-11, HA1C, CBCA, 5196-1, 59029-0, 27776-9, 2132-9, 90740-7, 8014-3, 75447-4 #### [facility] ([id number]) [address] [facility] [facility], [address] [place] [address] ALT [Catalytic activity/Vol] 13 U/L Normal 0-31 [facility] Comment on above: Performed By: #### C AGNES, 1989-11, HA1C, CBCA, 5196-1, 01895-6, 83128-8, 2131-9, 11648-7, 8014-3, 04705-9 #### [facility] ([id number]) [address], [address] [place] [address] Anion gap [Moles/Vol] 10 mmol/L Normal 5-15 [facility] Comment on above: Performed By: #### C AGNES, 1989-11, HA1C, CBCA, 5196-1, 16178-5, 97705-5, 2131-9, 55623-4, 8014-3, 85615-1 #### [facility] ([id number]) [address], [address] [place] [address] AST [Catalytic activity/Vol] 17 U/L Normal 0-41 [facility] Comment on above: Performed By: #### C AGNES, 1989-11, HA1C, CBCA, 5196-1, 87758-1, 98633-1, 2131-9, 21318-6, 8014-3, 41177-3 #### [facility] ([id number]) [address], [address] [place] [address] Bilirubin [Mass/Vol] 0.7 mg/dL Normal 0.3-1.2 [facility] Comment on above: Performed By: #### C AGNES, 1989-11, HA1C, CBCA, 5196-1, 49136-8, 18211-0, 2131-9, 12903-9, 8014-3, 88717-3 #### [facility] ([id number]) [address], [address] [place] [address] Calcium [Mass/Vol] 9.5 mg/dL Normal 8.5-10.5 [facility] Comment on above: Performed By: #### C AGNES, 1989-11, HA1C, CBCA, 5196-1, 90879-6, 46963-9, 2132-9, 96684-0, 8014-3, 34826-7 #### [facility] ([id number]) [address], [address] [place] [address] Chloride [Moles/Vol] 104 mmol/L Normal 98-109 [facility] Comment on above: Performed By: #### C AGNES, 1989-11, HA1C, CBCA, 5196-1, 53067-6, 04969-4, 2132-9, 06438-3, 8014-3, 19264-0 #### [facility] ([id number]) [address] [facility] [address], [address] [place] [address] CO2 [Moles/Vol] 23 mmol/L Normal 22-32 [facility] Comment on above: Performed By: #### C AGNES, 1989-11, HA1C, CBCA, 5196-1, 94517-6, 49788-7, 2132-9, 68530-6, 8014-3, 23278-5 #### [facility] ([id number]) [address] [facility], [address] [place] [address] Creatinine [Mass/Vol] 0.49 mg/dL Normal 0.40-1.00 [facility] Comment on above: Result Comment: METH OD TRACEABLE TO IDMS STANDARD Performed By: #### C AGNES, 1989-11, HA1C, CBCA, 5196-1, 62006-2, 10828-2, 2132-9, 19839-5, 8014-3, 64836-5 #### [facility] ([id number]) [address], [address] [place] [address] eGFR (CKD-EPI) NON-RACE DEPENDENT >90 Normal >59 [facility] Comment on above: Result Comment: Reported eGFR is based on the CKD-EPI 2020 equation that does not use a race coefficient. Performed By: #### C AGNES, 1989-11, HA1C, CBCA, 5196-1, 29822-0, 76840-7, 2131-9, 09688-2, 8014-3, 02795-3 #### [facility] ([id number]) [address], [address] [place] [address] Glucose [Mass/Vol] 92 mg/dL Normal 65-99 [facility] Comment on above: Performed By: #### C AGNES, 1989-11, HA1C, CBCA, 5196-1, 12852-0, 20731-2, 2131-9, 26157-3, 8014-3, 11244-9 #### [facility] ([id number]) [address] [facility], [address] [place] [address] Potassium [Moles/Vol] 4.1 mmol/L Normal 3.5-5.0 [facility] Comment on above: Performed By: #### C AGNES, 1989-11, HA1C, CBCA, 5196-1, 29353-1, 35251-8, 2131-9, 17961-6, 8014-3, 83561-6 #### [facility] ([id number]) [address] [facility], [address] [place] [address] Protein [Mass/Vol] 7.5 g/dL Normal 6.0-8.0 [facility] Comment on above: Performed By: #### C AGNES, 1989-11, HA1C, CBCA, 5196-1, 69095-4, 29269-8, 2131-9, 98736-8, 8014-3, 39824-8 #### [facility] ([id number]) [address], [address] [place] [address] Sodium [Moles/Vol] 137 mmol/L Normal 134-146 [facility] Comment on above: Performed By: #### C AGNES, 1989-11, HA1C, CBCA, 5196-1, 92869-8, 87991-7, 2131-9, 28153-9, 8014-3, 64887-1 #### [facility] ([id number]) [address], [address] [place] [address] Urea nitrogen [Mass/Vol] 6 mg/dL Normal 5-23 [facility] Comment on above: Performed By: #### C AGNES, 1989-11, HA1C, CBCA, 5196-1, 74374-9, 14906-0, 2131-9, 42999-0, 8014-3, 15954-7 #### [facility] ([id number]) [address] [facility], [address] [place] [address] CRP [Mass/Vol]on 12-11-2023 C REACTIVE PROTEIN 0.5 mg/dL Normal 0.000-0.744 [facility] Comment on above: Performed By: #### C AGNES, 1989-11, HA1C, CBCA, 5196-1, 93631-5, 69400-4, 9, 64600-8, 8014-3, 50883-9 #### [facility] ([id number]) [address] [facility], [address] [place] [address] HBV surface Ag IA [facility] 12-10 HEPATITIS B SURF AG Negative Normal NEG [facility] Comment on above: Performed By: #### C AGNES, 1989-11, HA1C, CBCA, 5196-1, 39054-7, 33962-7, 9, 34711-0, 8014-3, 67057-1 #### [facility] ([id number]) [address], [address] [place] [address] HCV Ab IA Qlon 12-11-2023 ANTI HCV W/PCR REFLX Non-Reactive Normal NRCT [facility] Comment on above: Result Comment: If recent infection suspected, recommend repeat testing (>2 months). Yupmln-ft-kdtwll ratio is <0.80. Performed By: #### C AGNES, 1989-11, HA1C, CBCA, 5196-1, 19111-9, 07915-2, 2131-9, 29365-6, 8014-3, 77190-6 #### [facility] ([id number]) [address] [place] [address], [address] [place] [address] HGB A1C (GLYCO-HGB)on 2023 Glucose [Mass/Vol] 103 mg/dL Normal [facility] Comment on above: Performed By: #### Clyde ALARCON, 1989-11, HA1C, CBCA, 5196-1, 68048-8, 81336-1, 2131-9, 01180-9, 8014-3, 22679-2 #### [facility] ([id number]) [address] [place] [address], [facility] [address] [place] [address] HbA1c (Bld) [Mass fraction] 5.2 % Normal 4.4-5.6 [facility] Comment on above: Result Comment: NOTE ADA Guidelines Result HgbA1c Normal : less than 5.7 % Prediabetes : 5.7 % to 6.4 % Diabetes : > 6.4 % Use with caution in patients with abnormal hemoglobin variants as the half-life of red blood cells and in vivo glycation rates are affected. Performed By: #### C AGNES, 1989-11, HA1C, CBCA, 5196-1, 66235-5, 40652-2, 2131-9, 08908-8, 8014-3, 03258-3 #### [facility] ([id number]) [address] [place] [address], [address] [place] [address] HIV 1+2 Ab+HIV1 p24 Ag IA Ql on 12-11-2023 HIV 1 and 2 Ab/Ag Screen Non-Reactive Normal NRCT [facility] Comment on above: Result Comment: [...] #### C AGNES, 1989-11, HA1C, CBCA, 5196-1, 54461-8, 00386-8, 9, 61450-4, 8014-3, 65277-7 #### [facility] ([id number]) [address] [place] [address], [address] [place] [address] Rubella virus IgG Qn (S)on 12-11-2023 RUBELLA IgG 30 IU/mL Normal [facility] Comment on above: Result Comment: Interpretation-------- <8 NEGATIVE-considered Not Immune 8-9 EQUIVOCAL-consider retesting with new specimen >9 POSITIVE-considered Immune Performed By: #### C AGNES, 1989-11, HA1C, CBCA, 5196-1, 33539-8, 50939-6, 9, 69239-7, 8014-3, 47498-3 #### [facility] ([id number]) [address] [place] [address], [address] [place] [address] T. pallidum IgG+IgM IA Ql (S )on 12-11-2023 Syphilis Total <0.2 Normal 0.0-0.8 [facility] Comment on above: Result Comment: NON REACTIVE No serologic evidence of infection to Treponema pallidum (syphilis). Repeat testing may be considered in patients with suspected acute or primary syphilis in 2 to 4 weeks. Performed By: #### Clyde ALARCON, 1989-11, HA1C, CBCA, 5196-1, 16456-5, 03441-5, 2131-9, 61398-6, 8014-3, 01957-1 #### [facility] ([id number]) [address] [facility] [address], [address] [place] [address] VITAMIN B12on 12-11-2023 Cobalamin (Vitamin B12) [Mass/Vol] 142 pg/mL Low 180-914 [facility] Comment on above: Performed By: #### C AGNES, 1989-11, HA1C, CBCA, 5196-1, 14092-7, 33001-8, 2132-03, 93979-6, 8014-3, 58781-8 #### [facility] ([id number]) [address] [facility] [address], [address] [place] [address] Vitamin D+Metabolites [Mass/ Vol]on 12-11-2023 VITAMIN D 25 HYD TOT 21.8 ng/mL Low 30-100 [facility] Comment on above: Result Comment: Vitamin D status 25 [place] Vitamin D Deficiency <20 ng/mL Insufficiency 20-29 ng/mL Sufficiency 30-100 ng/mL Toxicity >100 ng/mL NOTE: A pediatric reference range has not been established by the electrical tester battery of this kit. The [place] [employer] recommends a Vitamin D level of = or >20ng/mL in infants and children. Performed By: #### C , 1989-11, HA1C, CBCA, 5196-1, 95686-1, 46799-2, 2132-03, 14528-6, 8014-3, 07796-9 #### [facility] ([id number]) [address] [facility] [address], [address] [place] [address] SARS/FLU A+B/RSV by NAAT/Mol ecularon 10-08-2023 SARS/FLU [...] operators who are performing tests using either [employer] or [employer] systems and is limited to laboratories that [...] repeat. Fact Sheet for Healthcare Providers: https://www.fda.gov/media /971719/download Fact Sheet for Patients: https://www.fda.gov/media /381424/download Normal [facility] Comment on above: Performed By: #### C OVFLR #### [facility] ([id number]) [address] [place] [address], [place] [address] Consultation Noteon 12-18-19 Consultation Note [id number] 7 Normal [facility] Ambulatory Patient Education on 06-04-2018 Ambulatory Patient Education Patient Education MaterialsName: Comfort Maldonado Current Date: 06/04/2018 11:43:12 [place] 1995 following sheet(s) are the Patient Education Leaflets for Cmofort Maldonado Normal [facility] Gastroenterology Office/Clin ic Noteon 06-04-2018 [...] her being referred to Dr. Bowers at [facility] in [place]. She states that she had a colonoscopy [...] Endoscopy history: Colonoscopy done on 04/17/2018 at [facility] Constitutional: 45 pound weight loss [...] she was placed on steroids at the [facility]. She states that she is [...] _Trang Harrison MD 06/05/18 15:58 EST Normal [facility] Vital Signs Date Time Vital Sign Value Performing Clinician Facility 06-24-2024 15: Body weight 72.12 kg Sherry Livingstono DO Work Phone: [facility] 06-24-2024 15:02-0500 Diastolic blood pressure 70 mm[Hg] Sherry Aung DO Work Phone: [facility] 06-24-2024 15:02-0500 Systolic blood pressure 120 mm[Hg] Sherry Aung DO Work Phone: [facility] 06-17-2024 14:18-0500 Body weight 73.21 kg Sayra Juliana PA Work Phone: [facility] 06-17-2024 14:18-0500 Diastolic blood pressure 62 mm[Hg] Sayra Juliana PA Work Phone: [facility] 06-17-2024 14:18-0500 Systolic blood pressure 100 mm[Hg] Sayra Andrews PA Work Phone: [facility] 06-11-2024 10:48-0500 Body height 155 cm Devyn Roman MD Work Phone: [facility] 06-11-2024 10:48-0500 Body mass index (BMI) [Ratio] 29.98 kg/m2 Devyn Roman MD Work Phone: [facility] 06-11-2024 10:48-0500 Body weight 72.03 kg Devyn Roman MD Work Phone: [facility] 06-11-2024 10:48-0500 Diastolic blood pressure 83 mm[Hg] Devyn Roman MD Work Phone: [facility] 06-11-2024 10:48-0500 Heart rate 105 /min Devyn Roman MD Work Phone: [facility] 06-11-2024 10:48-0500 Systolic blood pressure 118 mm[Hg] Devyn Roman MD Work Phone: [facility] 06-10-2024 08:43-0500 Body weight 72.12 kg Sherry Aung DO Work Phone: [facility] 06-10-2024 08:43-0500 Diastolic blood pressure 70 mm[Hg] Sherry Aung DO Work Phone: [facility] 06-10-2024 08:43-0500 Systolic blood pressure 110 mm[Hg] Sherry Aung DO Work Phone: [facility] 06-05-2024 09:00-0500 Body mass index (BMI) [Ratio] 26.55 kg/m2 [facility] 1 [facility] 06-05-2024 09:00-0500 Body temperature 98.4 [degF] [facility] 1 [facility] 06-05-2024 09:00-0500 Body weight 63.78 kg [facility] 1 [facility] 06-05-2024 09:00-0500 Diastolic blood pressure 73 mm[Hg] [facility] 1 [facility] 06-05-2024 09:00-0500 Heart rate 99 /min [facility] 1 [facility] 06-05-2024 09:00-0500 Respiratory rate 16 /min [facility] 1 [facility] 06-05-2024 09:00-0500 Systolic blood pressure 114 mm[Hg] [facility] 1 [facility] 06-03-2024 08:25-0500 Body weight 70.76 kg Sherry Aung DO Work Phone: [facility] 06-03-2024 08:25-0500 Diastolic blood pressure 68 mm[Hg] Sherry Aung DO Work Phone: [facility] 06-03-2024 08:25-0500 Systolic blood pressure 114 mm[Hg] Sherry Aung DO Work Phone: [facility] 05-16-2024 09:01-0400 Body weight 70.67 kg Sherry Aung DO Work Phone: [facility] 05-16-2024 09:01-0400 Diastolic blood pressure 64 mm[Hg] Sherry Aung DO Work Phone: [facility] 05-16-2024 09:01-0400 Systolic blood pressure 120 mm[Hg] Sherry Aung DO Work Phone: [facility] 05-15-2024 16:05-0400 Diastolic blood pressure 72 mm[Hg] Tt Nst1 [facility] 05-15-2024 16:05-0400 Heart rate 93 /min [address] 05-15-2024 16:05-0400 Systolic blood pressure 110 mm[Hg] [address] 05-02-2024 09:35-0400 Body weight 68.58 kg Sayra BROWN Work Phone: [facility] 05-02-2024 09:35-0400 Diastolic blood pressure 68 mm[Hg] Sayra BROWN Work Phone: [facility] 05-02-2024 09:35-0400 Systolic blood pressure 110 mm[Hg] Sayra BROWN Work Phone: [facility] 10-25-2023 11:28-0400 Body temperature 99.1 [degF] [facility] 10-25-2023 11:28-0400 Diastolic blood pressure 62 mm[Hg] [facility] 2 [facility] 10-25-2023 11:28-0400 Heart rate 74 /min [facility] 2 [facility] 10-25-2023 11:28-0400 Respiratory rate 18 /min [facility] 10-25-2023 11:28-0400 Systolic blood pressure 97 mm[Hg] [facility] 2 [facility] 10-25-2023 08:54-0400 Body mass index (BMI) [Ratio] 25.32 kg/m2 [facility] 2 [facility] 10-25-2023 08:54-0400 Body weight 60.78 kg [facility] 2 [facility] 08-30-2023 11:44-0500 Body temperature 98.2 [degF] [facility] 1 [facility] 08-30-2023 11:44-0500 Diastolic blood pressure 68 mm[Hg] [facility] 1 [facility] 08-30-2023 11:44-0500 Heart rate 73 /min [facility] 1 [facility] 08-30-2023 11:44-0500 SaO2% (BldA) [Mass fraction] 98 % [facility] 1 [facility] 08-30-2023 11:44-0500 Systolic blood pressure 99 mm[Hg] [facility] 1 [facility] 08-30-2023 09:00-0500 Body mass index (BMI) [Ratio] 26.38 kg/m2 [facility] 1 [facility] 08-30-2023 09:00-0500 Body weight 63.32 kg [facility] 1 [facility] Encounters Encounter Date Encounter Type Care Provider Facility Start: 06-24-2024 End: 06-24-2024 Office outpatient visit 15 minutes Sherry Aung DO Work Phone: [facility] Comment on above: 37 weeks gestation o f ; Third trimester Start: 06-24-2024 End: 06-24-2024 ambulatory SHERRY AUNG Not Available Start: 06-24-2024 End: 06-24-2024 Bamboo flowsheet Sherry [...] Roman MD Work Phone: [facility] Comment on above: Crohn's disease of b oth small and large intestine with intestinal obstruction (CMS-HCC) (Primary Dx) Start: 06-11-2024 End: 06-11-2024 ambulatory SHERRY R AUNG [facility] Start: 06-10-2024 End: 06-10-2024 Bamboo flowsheet Sherry Aung DO Work Phone: [facility] Start: 06-10-2024 End: 06-10-2024 Bamboo flowsheet Sherry Aung DO Work Phone: [facility] Start: 06-10-2024 End: 06-10-2024 Office outpatient visit 15 minutes Sherry Aung DO Work Phone: [facility] Comment on above: Third trimester preg delfina; 35 weeks gestation of ; Herpes Start: 06-10-2024 End: 06-10-2024 ambulatory SHERRY AUNG Not Available Start: 06-05-2024 End: 06-05-2024 ambulatory Ppl[facility] Infusion [facility] 1 [facility] Comment on above: Crohn's disease of s mall and large intestines with complication ([facility]-HCC) (Primary Dx) Start: 06-03-2024 End: 06-03-2024 Bamboo flowsheet Sherry Aung DO Work Phone: [facility] Start: 06-03-2024 End: 06-03-2024 Bamboo flowsheet Sherry Anug DO Work Phone: [facility] Start: 06-03-2024 End: 06-03-2024 Office outpatient visit 15 minutes Sherry Aung DO Work Phone: [facility] Comment on above: Third trimester preg delfina; 34 weeks gestation of Start: 06-03-2024 End: 06-03-2024 ambulatory SHERRY AUNG Not Available Start: 05-30-2024 End: 05-30-2024 ambulatory [facility]Y R [facility] Start: 05-17-2024 End: 05-17-2024 Orders Only Akila Snider RN [facility] Comment on above: growth restric tion [...] 05-15-2024 End: 05-15-2024 Orders Only Jenni Owen [facility] Comment on above: growth restric tion antepartum (Primary Dx) Crohn's disease of b oth small and large intestine with intestinal obstruction (CMS-HCC) (Primary Dx); growth restriction antepartum Start: 05-02-2024 End: 05-02-2024 Bamboo flowsheet Sayra BROWN Work Phone: [facility] Start: 05-02-2024 End: 05-02-2024 Bamboo flowsheet aSyra BROWN Work Phone: [facility] Start: 05-02-2024 End: 05-02-2024 Office outpatient visit 15 minutes Sayra BROWN Work Phone: [facility] Comment on above: 30 weeks gestation o f (Primary Dx); Third trimester Start: 05-02-2024 End: 05-02-2024 ambulatory SAYRA ANDREWS Not Available Start: 04-30-2024 End: 04-30-2024 ambulatory [facility] Start: 04-17-2024 End: 04-17-2024 ambulatory [facility] Start: 04-10-2024 End: 04-10-[address] [facility] Eriberto [facility] Start: 04-04-2024 End: 04-04-2024 ambulatory SHERRY AUNG Not Available Start: 04-02-2024 End: 04-02-2024 ambulatory [facility] R [facility] Start: 03-29-2024 End: 03-29-[address] [facility] Eriberto [facility] Start: 03-28-2024 End: 03-28-2024 [address] [facility] Start: 03-28-2024 End: 03-28-2024 ambulatory [facility] Start: 03-19-2024 End: 03-19-2024 [facility] Start: 03-05-2024 End: 03-05-2024 ambulatory SAYRA ANDREWS Not Available Start: 02-29-2024 End: 02-29-2024 ambulatory [facility] Start: 02-20-2024 End: 02-20-2024 ambulatory [facility] Start: 02-14-2024 End: 02-14-2024 ambulatory [facility] Start: 02-06-2024 End: 02-06-2024 ambulatory SHERRY AUNG Not Available Start: 01-09-2024 End: 01-09-2024 ambulatory SHERRY AUNG Not Available Start: 12-20-2023 End: 12-20-[address] [facility] E[facility] Start: 12-11-2023 End: 12-11-2023 ambulatory SHERRY R [facility] Start: 12-08-2023 End: 12-08-2023 ambulatory SHERRY AUNG Not Available Start: 11-30-2023 End: 11-30-2023 ambulatory [facility] Start: 10-25-2023 End: 10-25-2023 ambulatory [facility] Infusion Chair 2 [facility] Comment on above: Crohn's disease of s mall and large intestines with complication (CMS-HCC) (Primary Dx) Start: 10-24-2023 Telephone encounter Amanda Cole RN P Erin [facility] Start: 10-08-2023 End: 10-08-2023 Emergency department patient visit PREMA ABRAHAM [facility] Start: 08-30-2023 End: 08-30-2023 ambulatory [facility] Infusion Chair [address] [facility] Comment on above: Crohn's disease of s mall and large intestines with complication (CMS-HCC) (Primary Dx) Start: 09-17-2019 End: 09-18-2019 Patient encounter procedure PREMA ABRAHAM Facility: Start: 06-04-2018 End: 06-05-2018 Patient encounter procedure Trang Harrison Facility:[facility]astroenterol [facility]gy [facility] Procedures Date Procedure Procedure Detail Performing [...] DO Work Phone: Start: 05-15-2024 nonstress test Tayler Roman MD Work Phone: Start: 02-06-2024 Microscopic observat ion [Identifier] in Cervix by Cyto stain Jenni Owen CMA Start: 11-30-2023 Follow-up visit Follow-up SURESH DIAZ Start: 11-11-2021 Microscopic observat ion [Identifier] in Cervix by Cyto stain [facility] 1 Start: 03-04-2021 Adult depression scr eening assessment [facility] 1 Start: 04-14-2020 H/O: colostomy Colostomy status [facility] 1 Start: 12-03-2019 H/O: ileostomy Ileostomy status [facility] 1 Plan of Treatment Date Care Activity Detail Author Start: 02-05-2027 Screening for malign ant neoplasm of cervix Pap [facility] Start: 06-11-2025 Adult BMI Screening Adult BMI Screen ing [facility] Start: 06-11-2025 [facility] Start: 06-05-2025 Adult BMI Screening Adult BMI Screen ing [facility] Start: 05-17-2025 End: 05-17-2025 US MFM with or without consult US MFM with or without consult Imaging Routine growth restriction antepartum Crohn's disease of both small and large intestine with intestinal obstruction (CMS-HCC) 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 Expected: 05/17/2025 (Approximate), Expires: 05/17/2025 [facility] Work Phone: Comment on above: Expected: 05/17/2025 (Approximate), Expires: 05/17/2025 Start: 05-15-2025 Tobacco Screening Tobacco Screening [facility] Start: 04-17-2025 Adult BMI Screening Adult BMI Screen ing [facility] Start: 11-11-2024 Screening for malign ant neoplasm of cervix Pap [facility] Start: 10-24-2024 Adult BMI Screening Adult BMI Screen ing [facility] Start: 10-07-2024 Tobacco Screening Tobacco Screening [facility] Start: 08-30-2024 Adult BMI Screening [facility] ing [facility] Start: 08-12-2024 End: 08-12-2024 Patient encounter procedure 08/12/2024 8:30 AM EST Office Visit [facility] [address] [place] [phone] Suresh Diaz MD [address] [place] [address] [facility] Start: 08-01-2024 End: 08-01-2024 ambulatory 08/01/2024 9:30 AM EST Infusion [facility] [address] [place] [address] [facility] Start: 07-01-2024 End: 07-01-2024 Patient encounter procedure 07/01/2024 1:50 PM EST Routine [facility] [address] [place] [id number] Sayra Andrews, PA [address] [place], [place] [id number] [facility] Start: 06-24-2024 End: 06-24-2024 Patient encounter procedure [facility] Comment on above: Arrived Start: 06-17-2024 End: 06-17-2024 Patient encounter procedure 06/17/2024 1:50 PM EST Routine [facility] [address] [place] [phone] Sayra Adnrews, PA [address] [place], [facility] Start: 06-11-2024 End: 06-11-2024 Patient encounter procedure [facility] Start: 06-10-2024 End: 06-10-2025 Strep B [...] EST Infusion [facility] [address] [place] [phone] [facility] Start: 06-03-2024 End: 06-03-2024 Patient encounter procedure [facility] Comment on above: Arrived Start: 05-30-2024 End: 05-30-2024 Patient encounter procedure 05/30/2024 3:[address] [facility] [address] [place] [address] [facility] Start: 05-16-2024 End: 05-16-2024 Patient encounter procedure [facility] Comment on above: Arrived Start: 05-10-2024 Tobacco Screening Tobacco Screening [facility] Start: 05-02-2024 End: 05-02-2024 Patient encounter procedure 05/02/2024 9:30 AM EDT Routine [facility] [address] [place] [phone] Sayra Andrews PA [address] [place] [address] Arrived [facility] Comment on above: Arrived Start: 03-31-2024 Influenza vaccination Influenza Vacc ine [facility] Start: 12-20-2023 End: 12-20-2023 ambulatory 12/20/2023 9:00 AM EDT Infusion [facility] [address] [facility] [address] [facility] [address] [place] [phone] [facility] Start: 11-30-2023 End: 11-30-2023 Patient encounter procedure 11/30/2023 9:30 AM EDT Office Visit [facility] [address] [place] [address] Suresh Diaz MD [address] [facility] [address] [place] [address] [facility] Start: 10-25-2023 End: 10-25-2023 ambulatory 10/25/2023 9:00 AM EDT [facility]fusion [facility] [address] [place] [phone] [facility] Start: 03-31-2023 Influenza vaccination Influenza Vacc ine [facility] Start: 03-04-2022 Depression Screening Depression Scre [facility] Start: 2012 DTaP,Tdap and Td Vaccines (1 - Tdap) DTaP,Tdap and Td Vaccines (1 - Tdap) [facility] Start: 2011 Adult BMI Follow Up Plan Adult BMI Follow Up Plan [facility] Start: 2005 Depression Screening Depression Scre [facility] End: 10-24-2024 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[employer] Lab Routine Crohn's disease of small and large intestines with complication ([facility]-HCC) 1 Occurrences starting 10/25/2023 until 10/24/2024 [facility] Work Phone: Comment on above: 1 Occurrences starti ng 10/25/2023 until 10/24/2024 Payers Date Payer Category Payer Medicaid [id number] 2022 Medicaid [id number] 1995 Unknown [id number] 2.16.8 40.1.512399.3.579.2.196 1993 Unknown [id number] 2.16.84 0.1.842651.3.579.2.593 1993 Unknown [id number] 2.16.8 40.1.485293.3.579.2.1286 1993 Unknown [id number] 2.16.8 40.1.392517.3.579.2.1286 1993 Unknown [id number] 2.16.8 40.1.255070.3.579.2.1286 1993 Unknown [id number] 2.16.8 40.1.918025.3.579.2.1285 1993 Unknown [id number] 2.16.8 40.1.076841.3.579.2.1285 1993 Unknown [id number] 2.16.8 40.1.871570.3.579.2.1285 1993 Unknown [id number] 2.16.8 40.1.974269.3.579.2.1285 1993 Unknown [id number] 2.16.8 40.1.959218.3.579.2.1285 1993 Unknown [id number] 2.16.8 40.1.402927.3.579.2.1285 1993 Unknown [id number] 2.16.8 40.1.949372.3.579.2.1285 1993 Unknown [id number] 2.16.8 40.1.418261.3.579.2.1285 1993 Unknown [id number] 2.16.8 40.1.279938.3.579.2.1285 1993 Unknown [id number] 2.16.8 40.1.929954.3.579.2.1285 1993 Unknown [id number] 2.16.8 40.1.706038.3.579.2.1285 1993 Unknown [id number] 2.16.8 40.1.159755.3.579.2.1285 1993 Unknown [id number] 2.16.8 40.1.937605.3.579.2.1285 1993 Unknown [id number] 2.16.8 40.1.979323.3.579.2.1285 1993 Unknown [id number] 2.16.8 40.1.912771.3.579.2.1285 1993 Unknown [id number] 2.16.8 40.1.270568.3.579.2.1286 1993 Unknown [id number] 2.16.8 40.1.490493.3.579.2.1286 1993 Unknown [id number] 2.16.8 40.1.509660.3.579.2.1286 1993 Unknown [id number] 2.16.8 40.1.426817.3.579.2.1286 1993 Unknown [id number] 2.16.8 40.1.453661.3.579.2.1286 1993 Unknown [id number] 2.16.8 40.1.249058.3.579.2.1286 1993 Unknown [id number] 2.16.8 40.1.042290.3.579.2.1286 1993 Unknown [id number] 2.16.8 40.1.250704.3.579.2.1286 1993 Unknown [id number] 2.16.84 0.1.025041.3.579.2.1259 1993 Unknown [id number] 2.16.84 0.1.323317.3.579.2.9 1993 Unknown [id number] 2.16.84 0.1.569392.3.579.2.1259 1993 Unknown [id number] 2.16.84 0.1.759441.3.579.2.1259 1993 Unknown [id number] 2.16.84 0.1.440998.3.579.2.1259 1993 Unknown [id number] 2.16.84 0.1.848057.3.579.2.1259 1993 Unknown [id number] 2.16.84 0.1.135732.3.579.2.9 1993 Unknown [id number] 2.16.84 0.1.191691.3.579.2.1259 1993 Unknown [id number] 2.16.84 0.1.091626.3.579.2.1259 1993 Unknown [id number] 2.16.84 0.1.625081.3.579.2.1259 1993 Unknown [id number] 2.16.84 0.1.556603.3.579.2.1259 1959 Self-pay [id number] 07-31-1799 Self-pay Social History Date Type Detail Facility Start: 07-05-2022 End: 12-08-2023 Tobacco smoking status NHIS Never smoked tobacco [facility] Start: 07-05-2022 End: 12-08-2023 Tobacco use and exposure Smokeless tobacco non-user [facility] Start: 05-10-2023 End: 10-08-2023 Alcohol intake Current drinker of alcohol (finding) [facility] Start: 05-10-2023 End: 12-08-2023 Alcohol intake [facility] Start: 08-06-2020 End: 12-08-2023 Social connection and isolation panel [facility] Do you belong to any clubs or organizations such as mandaeism groups, unions, fraternal or athletic groups, or school groups? No [facility] Are you now , , , , never or living with a partner? [facility] How often to you hav e a drink containing alcohol? 2-4 times a month [facility] Average Number of Drinks Not on file [facility] Do you feel stress - tense, restless, nervous, or anxious, or unable to sleep at night because your mind is troubled all the time - these days [OSQ] Only a little [facility] Start: 12-22-2021 Alcohol Comment socially [facility] Start: 1995 Sex Assigned At Not on file P [facility] Start: 05-02-2024 End: 06-24-2024 Alcoholic beverage intake Ex-drinker (finding) [facility] Start: 10-17-2023 [facility] Start: 10-16-2019 Sex Female (finding) [facility] Goals Date Patient Goal Desired Activity /State Personal health goal Comment on above: Formatting of this n ote might be different from the original. Evaluation of progress towards goal: Patient plans to return home with [facility] Clinical Notes 08-30-2023 to 06-24-2024 Paddy Garza [...] nursing note reviewed. Exam conducted with a laser beam machine operator present. Vitals: There is no height [...] in this encounter [facility] 06-17-2024 History of Presen t illness Narrative [...] in this encounter [facility] 06-11-2024 History of Presen t illness Narrative [...] intestine with intestinal obstruction (CMS-HCC) Ileostomy status ([facility]) Colostomy status ([facility]) Rectal stricture Crohn's disease of small and large intestines with complication ([facility]) Cyst of right ovary Poor growth [...] Past Medical History: Diagnosis Date Crohn's colitis (CMS-HCC) Fibromyalgia, primary Herpes Ovarian cyst REVIEW OF [...] ROMAN MD documented in this encounter [facility] [employer] 06-10-2024 History of Presen t illness Narrative [...] nursing note reviewed. Exam conducted with a laser beam machine operator present. Vitals: There is no height [...] in this encounter [facility] 06-05-2024 History of Presen t illness Narrative IV Infusion START time: 914 Patient here for Entyvio infusion. Patient denies any recent infections, open wounds, recent/future surgery, or insurance changes. IV started with 22g needle to Right AC by Renuka Middleton RN x1 attempt. Patient tolerated well. Remicade Lot# [id number] Exp- 08/27/2026 Time out performed prior to medication administration. Name, , medication(s) verified IV Infusion END time: 1124 patient infusion complete. IV discontinued, catheter intact, vitals WNL. Patient tolerated infusion well PIV flushed with 10 ml of 0.9% NS after medication infused documented in this encounter [facility] [employer] 06-03-2024 History of Presen t illness Narrative [...] nursing note reviewed. Exam conducted with a laser beam machine operator present. Vitals: There is no height [...] in this encounter [facility] 05-16-2024 History of Presen t [...] Past Medical History: Diagnosis Date Crohn's disease ([facility]) Genital warts Herpes Ovarian cyst HISTORY [...] nursing note reviewed. Exam conducted with a laser beam machine operator present. Vitals: There is no height [...] order to have NST/BPP done locally at [facility]. Documented by Paddy Garza LPN on [...] all scheduled appointments documented in this encounter [facility] 05-02-2024 History of Presen t illness Narrative [...] tolerated well. Avsola x 2 vials, lot# [id number], exp date Avsola x 1 vial, lot# [id number], exp date 02/27/2027 Time out performed with [...] of info given. documented in this encounter [facility] 10-24-2023 Miscellaneous Notes Formattin g of this note might be different from the original. Patient currently receiving Avsola 5mg/kg every 8 weeks. However due to electrical tester battery delay we are unable to obtain medication. Prior auth request forms completed for Remicade 5mg/kg to be given every 56 days, faxed to [phone] Remicade approved for 5mg/kg (400mg) for 7 visits from 10/25/2023-10/23/2024. Auth # [id number] Referral placed. Therapy plan updated. Flowsheet updated. documented in this encounter [facility] 10-24-2023 Telephone encount er Note Patient currently receiving Avsola 5mg/kg every 8 weeks. However due to electrical tester battery delay we are unable to obtain medication. Prior auth request forms completed for Remicade 5mg/kg to be given every 56 days, faxed to [phone] [facility] 10-24-2023 Telephone encount er Note Remicade approved for 5mg/kg (400mg) for 7 visits from 10/25/2023-10/23/2024. Auth # [id number] Referral placed. Therapy plan updated. Flowsheet updated. [facility] 08-30-2023 History of Presen t illness Narrative 0906 Patient here for Avsola infusion. Patient denies any recent infections, open wounds, recent/future surgery, or insurance changes . Site cleansed with alcohol. IV started with 22g needle by Juan M GILL in right antecube. Patient tolerated well. 1142 patient infusion complete. IV discontinued at 1142. Patient tolerated infusion well. documented in this encounter [facility] Evaluation note Diagnosis Crohn's disease of small and large intestines with complication (CMS-HCC)- Primary documented in this encounter [facility] Diagnosis Crohn's disease of small and large intestines with complication (CMS-HCC)- Primary documented in this encounter [facility] Diagnosis 30 weeks gestation of - Primary Third trimester state, incidental [facility] Crohn's disease of both small and large intestine with intestinal obstruction (CMS-HCC)- Primary growth restriction antepartum growth restriction antepartum- Primary documented in this encounter [facility] Diagnosis Crohn's disease of both small and large intestine with intestinal obstruction (CMS-HCC)- Primary growth restriction antepartum documented in this encounter [facility] Diagnosis 32 weeks gestation of Third trimester state, incidental [facility] Diagnosis growth restriction antepartum- Primary Crohn's disease of both small and large intestine with intestinal obstruction (CMS-HCC) 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 documented in this encounter [facility] Diagnosis Third trimester state, incidental 34 weeks gestation of [facility] Diagnosis Crohn's disease of small and large intestines with complication (CMS-HCC)- Primary documented in this encounter [facility] Diagnosis Third trimester state, incidental 35 weeks gestation of Herpes Herpes simplex without mention of complication [facility] Diagnosis Crohn's disease of both small and large intestine with intestinal obstruction (CMS-HCC)- Primary documented in this encounter [facility] Diagnosis 36 weeks gestation of Third trimester state, incidental [facility] Diagnosis 37 weeks gestation of Third trimester state, incidental documented [facility]ructionsNot on filedocumented in this [facility] SystemInstructionsNot on filedocumented in this encounterPro[facility] SystemInstructionsNot on filedocumented in this encounterBl[facility]ructionsNot on filedocumented in this encounterBl[facility] InstructionsNot on filedocumented in this encounterBl[facility] InstructionsNot on filedocumented in this encounterBl[facility] Summary Purpose Family History No [...] section and content) DATE CREATED AUTHOR 07/08/2018 [facility] DATE CREATED AUTHOR AUTHOR'S ORGANIZ ATION 09/20/2019 [facility] DATE CREATED AUTHOR AUTHOR'S ORGANIZ ATION 12/18/2019 [facility] DATE CREATED AUTHOR AUTHOR'S ORGANIZ ATION 04/03/2024 [facility] DATE CREATED AUTHOR AUTHOR'S ORGANIZ ATION 06/06/2024 [facility] DATE CREATED AUTHOR AUTHOR'S ORGANIZ ATION 06/13/2024 [facility] DATE CREATED AUTHOR AUTHOR'S ORGANIZ ATION 06/27/2024 [facility] EPIC Reason for Visit [...] 10 MG INFUSION Prema Abraham MD [address] [place] [address] [facility] [address] [address] Referral ID Status Reason Start Date Expiration Date V isits Requested Visits Authorized [id number] Authorized 02/02/2023 02/02/2024 7 7 Reason Comments Outpatient Infusion Avsola Reason Comments Routine Visit Reason Comments add on NST for FGR Specialty Diagnoses / Procedures Referred By Theodore kohli Referred To Contact Maternal and Medicine Diagnoses growth restriction antepartum Procedures nonstress test - Maternal Medicine Devyn Roman MD [address] [address] [place] [address] Phone: tel: fax: [facility]- Medicine at [facility] [address] [place] [address] Phone: tel: fax: Referral ID Status Reason Start Date Expiration Date V isits Requested Visits Authorized [id number] Pending Review 05/15/2024 05/15/2025 1 1 Reason Comments Outpatient Infusion Remicade Specialty Diagnoses / Procedures Referred By Theodore kohli Referred To Contact Gastroenterology Diagnoses Crohn's disease of both small and large intestine with unspecified complications Remicade 5mg/kg every 56 days ( 400 mg) Auth'd from 10/25/2023-10/23/2024 for 7 Visits, [facility], Crohn's Procedures AL INFLIXIMAB INJECTION INFUSION Prema Abraham MD [address] [place] [id number] Phone: tel: fax: [facility] [address] [address] Phone: tel: fax: Referral ID Status Reason Start Date Expiration Date V isits Requested Visits Authorized [id number] Authorized 12/20/2023 12/19/2024 7 7 Reason Comments growth restriction history of bowel resection Chrohns disease Care Teams (unrecognized sec tion and content) Police Shift Commander Relationship Specialty Start Date End Date Prema Abraham MD [address] [place] [address] PCP - General Family Medicine 12/17/19 Police Shift Commander Relationship Specialty Start Date End Date Prema Abraham MD [address] [place] [address] PCP - General Family Medicine 10/08/23 Police Shift Commander Relationship Specialty Start Date End Date Prema Abraham MD [address] [place], [place] [phone] PCP - General Family Medicine 10/08/23 Police Shift Commander Relationship Specialty Start Date End Date Prema Abraham MD [address] [place], [place] [phone] PCP - General Family Medicine 02/29/24 Police Shift Commander Relationship Specialty Start Date End Date Prema Abraham MD [address] [place], [place] [phone] PCP - General Family Medicine 02/29/24 Police Shift Commander Relationship Specialty Start Date End Date Prema Abraham MD [address] [place] [address] PCP - General Family Medicine 02/29/24 Police Shift Commander Relationship Specialty Start Date End Date Prema Abraham MD [address] [place] [address] PCP - General Family Medicine 02/29/24 Police Shift Commander Relationship Specialty [place] [address] [place] [address] PCP - General Family Medicine 02/29/24 FOR [...] BE BASED ON THE PRIMARY CLINICAL RECORDS. [facility]. provides no warranty or guarantee of the accuracy or completeness of information in this document.
[2024-06-28 09:25] VITALS: BP 113/71; PULSE 115
== END 2024-06-28 09:34 | disposition home or self-care (01) ==
LOC: FBCO 08:17 → FBC 08:49
PROVIDERS: PCP Family Medicine; Visit Provider Obstetrics & Gynecology
DX: O26.893 Other specified pregnancy related conditions, third trimester (principal); Z3A.38 38 weeks gestation of pregnancy
CPT/HCPCS: 59025

== ENCOUNTER 2024-07-02 04:57 | Inpatient (IN) | payer MEDICAID, SELFPAY ==
[2024-07-02] VITALS (34 sets, daily range): BP systolic 92–131; BP diastolic 59–88; PULSE 80–122; TEMP 36.5–37.1; O2SAT 92–98
--- OUTSIDE RECORDS SUMMARY | 2024-07-02 05:01 | XMS_ITS | CCD ---
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 Name Role Phone Trang Harrison Unavailable [...] 10 tablet 0 10/08/2023 Active Vit-Fe Fumarate-FA (Endoart VITAMINS PO) (18 sources) Start: 11-16-2023 take 1 dose by mouth once daily Vit-Fe Fumarate-FA (Endoart VITAMINS PO) 1 each Daily 11/16/2023 Active [...] UA Negative Negative - 4(70) +++ mg/dL [facility] Blood, UA Positive Negative - 50 Kal/mcL [facility] Comment on above: large Clarity, UA Clear [facility] Color, UA Yellow [facility] Glucose, UA Negative Negative - 2000(110) ++++ mg/dL [facility] Interpretation and review of laboratory results Abnormal [facility] Ketones, UA Positive Negative - 160(16) ++++ mg/dL [facility] Comment on above: trace Leukocytes, UA Negative Negative - 500+++ Sandra/mcL [facility] Nitrite, UA Negative Negative - Positive [facility] pH, UA 6.5 5 - 9 [facility] Protein, UA Negative Negative - 1999(20) ++++ mg/dL [facility] Spec Grav, UA 1.02 1 - 1.03 [facility] Urobilinogen, UA 0.2 0.2 - 12 mg/dL [facility] Urinalysis macro (dipstick) panel (U)on 06-17-2024 Bilirubin, UA Negative Negative - 4(70) +++ mg/dL [facility] Blood, UA Positive Negative - 50 Kal/mcL [facility] Comment on above: trace-intact Clarity, UA Clear [facility] Color, UA Yellow [facility] Glucose, UA Negative Negative - 1999(110) ++++ mg/dL [facility] Interpretation and review of laboratory results Abnormal [facility] Ketones, UA Positive Negative - 160(16) ++++ mg/dL [facility] Comment on above: trace Leukocytes, UA Negative Negative - 500+++ Sandra/mcL [facility] Nitrite, UA Negative Negative - Positive [facility] pH, UA 5.5 5 - 9 [facility] Protein, UA Negative Negative - 1999(20) ++++ mg/dL [facility] Spec Grav, UA 1.01 1 - 1.03 [facility] Urobilinogen, UA 0.2 0.2 - 12 mg/dL [facility] Urinalysis macro (dipstick) panel (U)on 06-10-2024 Bilirubin, UA Negative Negative - 4(70) +++ mg/dL [facility] Blood, UA Positive Negative - 50 Kal/mcL [facility] Clarity, UA Clear [facility] Color, UA Yellow [facility] Glucose, UA Negative Negative - 1999(110) ++++ mg/dL [facility] Interpretation and review of laboratory results Abnormal [facility] Ketones, UA Negative Negative - 160(16) ++++ mg/dL [facility] Leukocytes, UA Negative Negative - 500+++ Sandra/mcL [facility] Nitrite, UA Negative Negative - Positive [facility] pH, UA 6 5 - 9 [facility] Protein, UA Negative Negative - 1999(20) ++++ mg/dL [facility] Spec Grav, UA 1.02 1 - 1.03 [facility] Urobilinogen, UA 1.0 0.2 - 12 mg/dL [facility] Urinalysis macro (dipstick) panel (U)on 06-03-2024 Bilirubin, UA Negative Negative - 4(70) +++ mg/dL [facility] Blood, UA Negative Negative - 50 Kal/mcL [facility] Healthcare Clarity, UA Clear [facility] Color, UA Yellow [facility] Glucose, UA Negative Negative - 1999(110) ++++ mg/dL [facility] Interpretation and review of laboratory results Normal [facility] Ketones, UA Negative Negative - 160(16) ++++ mg/dL [facility] Leukocytes, UA Negative Negative - 500+++ Sandra/mcL [facility] Nitrite, UA Negative Negative - Positive [facility] pH, UA 5.5 5 - 9 [facility] Protein, UA Negative Negative - 1999(20) ++++ mg/dL [facility] Spec Grav, UA 1.03 1 - 1.03 [facility] Urobilinogen, UA 0.2 0.2 - 12 mg/dL [facility] Urinalysis macro (dipstick) panel (U)on 05-16-2024 Bilirubin, UA Negative Negative - 4(70) +++ mg/dL [facility] Blood, UA Positive Negative - 50 Kal/mcL [facility] Comment on above: trace-intact Clarity, UA Clear [facility] Color, UA Yellow [facility] Glucose, UA Negative Negative - 1999(110) ++++ mg/dL [facility] Interpretation and review of laboratory results Abnormal [facility] Ketones, UA Negative Negative - 160(16) ++++ mg/dL [facility] Leukocytes, UA Negative Negative - 500+++ Sandra/mcL [facility] Nitrite, UA Negative Negative - Positive [facility] pH, UA 6 5 - 9 [facility] Protein, UA Negative Negative - 1999(20) ++++ mg/dL [facility] Healthcare Spec Grav, UA 1.025 1 - 1.03 [facility] Urobilinogen, UA 0.2 0.2 - 12 mg/dL [facility] No Panel Informationon 05-15 Patient Name: Kishor Maldonado Patient : 1995 NST Objective Findings: Variability: Moderate Decelerations: None Accelerations: Yes Acoustic Stimulator: No Baseline: 130 BPM Uterine Irritability: Yes Contractions: Not present Comments: Uterine irritability noted, intercourse this morning. [facility] instructions/handout and labor precautions reviewed. NST Interpretation: Nonstress Test Interpretation: Reactive (Devyn Roman MD) NST performed by: Aislinn Richardson RN 05/15/2024 4:30 PM [facility] M. tuberculosis stim IFN-g p venkat (Bld)on 03-29-2024 Mitogen minus Nil Result 1.22 IU/mL Normal [facility] Comment on above: Performed By: #### C AGNES, 1989-11, HA1C, CBCA, 5196-1, 89337-1, 31628-0, 2132-9, 64756-3, 8014-3, 92842-8 #### [facility] ([id number]) [address] [place] [address], [address] [place] [address] Nil Result 0.02 IU/mL Normal [facility] Comment on above: Result Comment: NOTE Test Performed by: [facility] [place] [address] [place] [address] Alterations Workroom Clerk: Donnie Sanon Ph.D.; CLIA# [id number] Performed By: #### C AGNES, 1989-11, HA1C, CBCA, 5196-1, 18531-3, 75043-9, 2-9, 23276-0, 8014-3, 93508-5 #### [facility] ([id number]) [address] [facility], [address] [place] [address] QuantiFERON-Tb Gold Plus Result Negative Normal Negative [facility] Comment on above: Result Comment: NOTE [...] #### C AGNES, 1989-11, HA1C, CBCA, 5196-1, 94183-1, 96334-5, 2132-9, 29681-0, 8014-3, 17453-5 #### [facility] ([id number]) [address] [facility] [address], [address] [place] [address] TB1 Ag minus Nil Result NEG 0.01 Normal [facility] Comment on above: Performed By: #### C AGNES, 1989-11, HA1C, CBCA, 5196-1, 82104-0, 09601-0, 2132-9, 34886-4, 8014-3, 56098-0 #### [facility] ([id number]) [address] [facility], [address] [place] [address] TB2 Ag minus Nil Result NEG 0.01 Normal [facility] Comment on above: Performed By: #### C AGNES, 1989-11, HA1C, CBCA, 5196-1, 07183-3, 88781-0, 2132-9, 35448-2, 8014-3, 29262-0 #### [facility] ([id number]) [address], [address] [place] [address] CBC AND AUTO DIFFon 12-10- 24 ABSOLUTE BASOPHIL 0.0 X10E9/L Normal 0.0-0.2 [facility] Comment on above: Performed By: #### C AGNES, 1989-11, HA1C, CBCA, 5196-1, 22472-7, 13056-0, 2132-9, 18182-5, 8014-3, 79630-2 #### [facility] ([id number]) [address], [address] [place] [address] ABSOLUTE NEUTROPHIL 5.5 X10E9/L Normal 1.5-6.6 [facility] Comment on above: Performed By: #### C AGNES, 1989-11, HA1C, CBCA, 5196-1, 34345-1, 76278-1, 2132-9, 51010-8, 8014-3, 94561-2 #### [facility] ([id number]) [address], [address] [place] [address] Basophils/100 WBC (Bld) 0.3 % Normal [facility] Comment on above: Performed By: #### C AGNES, 1989-11, HA1C, CBCA, 5196-1, 43830-3, 79770-0, 2132-9, 73621-0, 8014-3, 72775-6 #### [facility] ([id number]) [address], [address] [place] [address] Eosinophils (Bld) [#/Vol] 0.2 10*3/uL Normal 0.0-0.4 [facility] Comment on above: Performed By: #### C AGNES, 1989-11, HA1C, CBCA, 5196-1, 60220-7, 57182-8, 2132-9, 56416-7, 8014-3, 97395-9 #### [facility] ([id number]) [address], [address] [place] [address] Eosinophils/100 WBC (Bld) 2.6 % Normal [facility] Comment on above: Performed By: #### C AGNES, 1989-11, HA1C, CBCA, 5196-1, 14019-2, 57896-0, 2132-9, 06480-1, 8014-3, 62995-6 #### [facility] ([id number]) [address], [address] [place] [address] Erythrocyte distribution width (RBC) [Ratio] 13.3 % Normal 11.5-15.0 [facility] Comment on above: Performed By: #### C AGNES, 1989-11, HA1C, CBCA, 5196-1, 99964-5, 28038-3, 2131-9, 63308-5, 8014-3, 77928-3 #### [facility] ([id number]) [address], [address] [place] [address] Hematocrit (Bld) [Volume fraction] 40.5 % Normal 35-47 [facility] Comment on above: Performed By: #### C AGNES, 1989-11, HA1C, CBCA, 5196-1, 28706-7, 40755-3, 2131-9, 58263-8, 8014-3, 04681-9 #### [facility] ([id number]) [address], [address] [place] [address] Hemoglobin (Bld) [Mass/Vol] 14.2 g/dL Normal 11.7-15.5 [facility] Comment on above: Performed By: #### C AGNES, 1989-11, HA1C, CBCA, 5196-1, 15377-3, 58054-3, 2131-9, 83686-1, 8014-3, 54090-8 #### [facility] ([id number]) [address], [address] [place] [address] Lymphocytes (Bld) [#/Vol] 1.3 10*3/uL Normal 1.0-3.5 [facility] Comment on above: Performed By: #### C AGNES, 1989-11, HA1C, CBCA, 5196-1, 72768-9, 58404-1, 2131-9, 33625-4, 8014-3, 68270-4 #### [facility] ([id number]) [address], [address] [place] [address] Lymphocytes/100 WBC (Bld) 18.2 % Normal [facility] Comment on above: Performed By: #### C AGNES, 1989-11, HA1C, CBCA, 5196-1, 55569-0, 65800-6, 213-9, 54233-8, 8014-3, 96600-8 #### [facility] ([id number]) [address], [address] [place] [address] MCH (RBC) [Entitic mass] 30.7 pg Normal 27-34 [facility] Comment on above: Performed By: #### C AGNES, 1989-11, HA1C, CBCA, 5196-1, 33166-8, 77601-7, 2131-9, 96418-5, 8014-3, 97832-5 #### [facility] ([id number]) [address], [address] [place] [address] MCHC (RBC) [Mass/Vol] 35.2 g/dL Normal 32-36 [facility] Comment on above: Performed By: #### C AGNES, 1989-11, HA1C, CBCA, 5196-1, 26113-2, 57567-5, 2131-9, 57644-8, 8014-3, 33351-0 #### [facility] ([id number]) [address], [address] [place] [address] MCV (RBC) [Entitic vol] 87 fL Normal 80-100 [facility] Comment on above: Performed By: #### C AGNES, 1989-11, HA1C, CBCA, 5196-1, 14660-3, 62099-5, 2131-9, 07003-8, 8014-3, 27427-4 #### [facility] ([id number]) [address], [address] [place] [address] Monocytes (Bld) [#/Vol] 0.4 10*3/uL Normal 0-0.9 [facility] Comment on above: Performed By: #### C AGNES, 1989-11, HA1C, CBCA, 5196-1, 21620-4, 00159-3, 2132-9, 95855-4, 8014-3, 50734-3 #### [facility] ([id number]) [address], [address] [place] [address] Monocytes/100 WBC (Bld) 5.1 % Normal [facility] Comment on above: Performed By: #### C AGNES, 1989-11, HA1C, CBCA, 5196-1, 38976-1, 72761-3, 2131-9, 89220-2, 8014-3, 84229-9 #### [facility] ([id number]) [address], [address] [place] [address] Neutrophils/100 WBC (Bld) 73.8 % Normal [facility] Comment on above: Performed By: #### C AGNES, 1989-11, HA1C, CBCA, 5196-1, 43746-3, 47692-8, 2131-9, 41821-3, 8014-3, 18011-5 #### [facility] ([id number]) [address], [address] [place] [address] Platelet mean volume (Bld) [Entitic vol] 9.1 fL Normal 7-12 [facility] Comment on above: Performed By: #### C AGNES, 1989-11, HA1C, CBCA, 5196-1, 16652-4, 74856-9, 2131-9, 36940-7, 8014-3, 59888-0 #### [facility] ([id number]) [address], [address] [place] [address] Platelets (Bld) [#/Vol] 254 10*3/uL Normal 150-450 [facility] Comment on above: Performed By: #### C AGNES, 1989-11, HA1C, CBCA, 5196-1, 22772-4, 77730-8, 2131-9, 38616-9, 8014-3, 57463-7 #### [facility] ([id number]) [address], [address] [place] [address] RBC COUNT 4.63 X10E12/L Normal 3.80-5.20 [facility] Comment on above: Performed By: #### C AGNES, 1989-11, HA1C, CBCA, 5196-1, 80969-5, 27859-9, 2132-9, 90869-3, 8014-3, 74883-6 #### [facility] ([id number]) [address], [address] [place] [address] WBC (Bld) [#/Vol] 7.4 10*3/uL Normal 4.0-11.0 [facility] Comment on above: Performed By: #### C AGNES, 1989-11, HA1C, CBCA, 5196-1, 30295-4, 93475-3, 2-9, 98695-6, 8014-3, 53195-3 #### [facility] ([id number]) [address] [facility], [address] [place] [address] COMPREHENSIVE METABOLIC PANE Jesse 12-11-2023 Albumin [Mass/Vol] 4.3 g/dL Normal 3.2-5.3 [facility] Comment on above: Performed By: #### C AGNES, 1989-11, HA1C, CBCA, 5196-1, 78268-0, 45354-1, 2-9, 08695-6, 8014-3, 66051-2 #### [facility] ([id number]) [address] [place] [address], [address] [place] [address] ALP [Catalytic activity/Vol] 48 U/L Normal 39-130 [facility] Comment on above: Performed By: #### C AGNES, 1989-11, HA1C, CBCA, 5196-1, 09040-5, 18791-2, 2132-9, 20275-5, 8014-3, 81117-5 #### [facility] ([id number]) [address] [facility], [address] [place] [address] ALT [Catalytic activity/Vol] 13 U/L Normal 0-31 [facility] Comment on above: Performed By: #### C AGNES, 1989-11, HA1C, CBCA, 5196-1, 29856-3, 58959-0, 2131-9, 87373-3, 8014-3, 19001-0 #### [facility] ([id number]) [address], [address] [place] [address] Anion gap [Moles/Vol] 10 mmol/L Normal 5-15 [facility] Comment on above: Performed By: #### C AGENS, 1989-11, HA1C, CBCA, 5196-1, 91100-0, 19212-1, 2131-9, 94979-1, 8014-3, 54443-2 #### [facility] ([id number]) [address], [address] [place] [address] AST [Catalytic activity/Vol] 17 U/L Normal 0-41 [facility] Comment on above: Performed By: #### C AGNES, 1989-11, HA1C, CBCA, 5196-1, 69747-4, 20358-1, 2131-9, 14620-5, 8014-3, 04448-9 #### [facility] ([id number]) [address], [address] [place] [address] Bilirubin [Mass/Vol] 0.7 mg/dL Normal 0.3-1.2 [facility] Comment on above: Performed By: #### C AGNES, 1989-11, HA1C, CBCA, 5196-1, 86245-9, 10998-4, 2131-9, 14859-0, 8014-3, 10054-6 #### [facility] ([id number]) [address], [address] [place] [address] Calcium [Mass/Vol] 9.5 mg/dL Normal 8.5-10.5 [facility] Comment on above: Performed By: #### C AGNES, 1989-11, HA1C, CBCA, 5196-1, 80891-8, 52199-4, 2132-9, 50708-5, 8014-3, 71140-6 #### [facility] ([id number]) [address], [address] [place] [address] Chloride [Moles/Vol] 104 mmol/L Normal 98-109 [facility] Comment on above: Performed By: #### C AGNES, 1989-11, HA1C, CBCA, 5196-1, 25197-4, 45015-3, 2132-9, 77409-0, 8014-3, 05186-9 #### [facility] ([id number]) [address], [address] [place] [address] CO2 [Moles/Vol] 23 mmol/L Normal 22-32 [facility] Comment on above: Performed By: #### C AGNES, 1989-11, HA1C, CBCA, 5196-1, 07489-8, 77727-5, 2132-9, 71427-3, 8014-3, 69916-7 #### [facility] ([id number]) [address] [facility] [address], [address] [place] [address] Creatinine [Mass/Vol] 0.49 mg/dL Normal 0.40-1.00 [facility] Comment on above: Result Comment: METH OD TRACEABLE TO IDMS STANDARD Performed By: #### C AGNES, 1989-11, HA1C, CBCA, 5196-1, 54991-9, 61972-7, 2132-9, 48834-8, 8014-3, 54596-6 #### [facility] ([id number]) [address], [address] [place] [address] eGFR (CKD-EPI) NON-RACE DEPENDENT >90 Normal >59 [facility] Comment on above: Result Comment: Reported eGFR is based on the CKD-EPI 2020 equation that does not use a race coefficient. Performed By: #### C AGNES, 1989-11, HA1C, CBCA, 5196-1, 76242-3, 46845-9, 2131-9, 97547-4, 8014-3, 76145-6 #### [facility] ([id number]) [address], [address] [place] [address] Glucose [Mass/Vol] 92 mg/dL Normal 65-99 [facility] Comment on above: Performed By: #### C AGNES, 1989-11, HA1C, CBCA, 5196-1, 82606-8, 95216-7, 2131-9, 97512-3, 8014-3, 33949-6 #### [facility] ([id number]) [address] [address], [address] [place] [address] Potassium [Moles/Vol] 4.1 mmol/L Normal 3.5-5.0 [facility] Comment on above: Performed By: #### C AGNES, 1989-11, HA1C, CBCA, 5196-1, 69892-1, 92260-7, 2131-9, 65925-4, 8014-3, 23078-7 #### [facility] ([id number]) [address] [address], [address] [place] [address] Protein [Mass/Vol] 7.5 g/dL Normal 6.0-8.0 [facility] Comment on above: Performed By: #### C AGNES, 1989-11, HA1C, CBCA, 5196-1, 52693-5, 03745-9, 2131-9, 27391-0, 8014-3, 14230-6 #### [facility] ([id number]) [address], [address] [place] [address] Sodium [Moles/Vol] 137 mmol/L Normal 134-146 [facility] Comment on above: Performed By: #### C AGNES, 1989-11, HA1C, CBCA, 5196-1, 45186-1, 72077-0, 2131-9, 59414-5, 8014-3, 72256-6 #### [facility] ([id number]) [address], [address] [place] [address] Urea nitrogen [Mass/Vol] 6 mg/dL Normal 5-23 [facility] Comment on above: Performed By: #### C AGNES, 1989-11, HA1C, CBCA, 5196-1, 92128-4, 18783-6, 2131-9, 46546-6, 8014-3, 12237-8 #### [facility] ([id number]) [address], [address] [place] [address] CRP [Mass/Vol]on 12-11-2023 C REACTIVE PROTEIN 0.5 mg/dL Normal 0.000-0.744 [facility] Comment on above: Performed By: #### C AGNES, 1989-11, HA1C, CBCA, 5196-1, 50583-9, 44400-2, 9, 90184-4, 8014-3, 39478-3 #### [facility] ([id number]) [address], [address] [place] [address] HBV surface Ag IA [facility] 12-10 HEPATITIS B SURF AG Negative Normal NEG [facility] Comment on above: Performed By: #### C AGNES, 1989-11, HA1C, CBCA, 5196-1, 02324-6, 93914-1, 9, 59983-7, 8014-3, 84940-7 #### [facility] ([id number]) [address], [address] [place] [address] HCV Ab IA Qlon 12-11-2023 ANTI HCV W/PCR REFLX Non-Reactive Normal NRCT Pr [facility] Comment on above: Result Comment: If recent infection suspected, recommend repeat testing (>2 months). Gvanmc-nn-emgzue ratio is <0.80. Performed By: #### C AGNES, 1989-11, HA1C, CBCA, 5196-1, 97424-8, 33625-8, 2131-9, 58069-7, 8014-3, 37237-1 #### [facility] ([id number]) [address] [place] [address], [address] [place] [address] HGB A1C (GLYCO-HGB)on 2023 Glucose [Mass/Vol] 103 mg/dL Normal [facility] Comment on above: Performed By: #### Clyde ALARCON, 1989-11, HA1C, CBCA, 5196-1, 30038-6, 73912-1, 2131-9, 10275-8, 8014-3, 56167-5 #### [facility] ([id number]) [address] [place] [address], [facility] [address] [place] [address] HbA1c (Bld) [Mass fraction] 5.2 % Normal 4.4-5.6 [facility] Comment on above: Result Comment: NOTE ADA Guidelines Result HgbA1c Normal : less than 5.7 % Prediabetes : 5.7 % to 6.4 % Diabetes : > 6.4 % Use with caution in patients with abnormal hemoglobin variants as the half-life of red blood cells and in vivo glycation rates are affected. Performed By: #### C AGNES, 1989-11, HA1C, CBCA, 5196-1, 68949-6, 23910-3, 2131-9, 41548-7, 8014-3, 01883-0 #### [facility] ([id number]) [address] [place] [address], [address] [place] [address] HIV 1+2 Ab+HIV1 p24 Ag IA Ql on 12-11-2023 HIV 1 and 2 Ab/Ag Screen Non-Reactive Normal NRCT [facility] Comment on above: Result Comment: This [...] #### C AGNES, 1989-11, HA1C, CBCA, 5196-1, 26396-0, 63452-5, 9, 03045-1, 8014-3, 25044-4 #### [facility] ([id number]) [address] [place] [address], [address] [place] [address] Rubella virus IgG Qn (S)on 12-11-2023 RUBELLA IgG 30 IU/mL Normal [facility] Comment on above: Result Comment: Interpretation-------- <8 NEGATIVE-considered Not Immune 8-9 EQUIVOCAL-consider retesting with new specimen >9 POSITIVE-considered Immune Performed By: #### C AGNES, 1989-11, HA1C, CBCA, 5196-1, 13813-8, 89321-0, 9, 54574-9, 8014-3, 57695-2 #### [facility] ([id number]) [address] [place] [address], [address] [place] [address] T. pallidum IgG+IgM IA Ql (S )on 12-11-2023 Syphilis Total <0.2 Normal 0.0-0.8 [facility] Comment on above: Result Comment: NON REACTIVE No serologic evidence of infection to Treponema pallidum (syphilis). Repeat testing may be considered in patients with suspected acute or primary syphilis in 2 to 4 weeks. Performed By: #### Clyde ALARCON, 1989-11, HA1C, CBCA, 5196-1, 52810-5, 43142-9, 2131-9, 81882-4, 8014-3, 03351-0 #### [facility] ([id number]) [address], [address] [place] [address] VITAMIN B12on 12-11-2023 Cobalamin (Vitamin B12) [Mass/Vol] 142 pg/mL Low 180-914 [facility] Comment on above: Performed By: #### C AGNES, 1989-11, HA1C, CBCA, 5196-1, 56200-8, 24688-4, 2132-03, 34013-4, 8014-3, 79680-0 #### [facility] ([id number]) [address], [address] [place] [address] Vitamin D+Metabolites [Mass/ Vol]on 12-11-2023 VITAMIN D 25 HYD TOT 21.8 ng/mL Low 30-100 [facility] Comment on above: Result Comment: Vitamin D status 25 [place] Vitamin D Deficiency <20 ng/mL Insufficiency 20-29 ng/mL Sufficiency 30-100 ng/mL Toxicity >100 ng/mL NOTE: A pediatric reference range has not been established by the plant science professor of this kit. The [employer] recommends a Vitamin D level of = or >20ng/mL in infants and children. Performed By: #### C , 1989-11, HA1C, CBCA, 5196-1, 69940-5, 05256-8, 2132-03, 62054-1, 8014-3, 27422-2 #### [facility] ([id number]) [address], [address] [place] [address] SARS/FLU A+B/RSV by NAAT/Mol ecularon 10-08-2023 SARS/FLU [...] operators who are performing tests using either [employer] or [employer] systems and is limited to laboratories that [...] repeat. Fact Sheet for Healthcare Providers: https://www.fda.gov/media /661413/download Fact Sheet for Patients: https://www.fda.gov/media /222813/download Normal [facility] Comment on above: Performed By: #### C OVFLR #### [facility] ([id number]) [address] [place] [address], [place] [address] Consultation Noteon 12-18-19 Consultation Note [id number]:12 7 Normal [facility] Ambulatory Patient Education on 06-04-2018 Ambulatory Patient Education Patient Education MaterialsName: Comfort Maldonado Current Date: 06/04/2018 11:43:12 [place] 1995 following sheet(s) are the Patient Education Leaflets for Comfort Maldonado Normal [facility] Gastroenterology Office/Clin ic Noteon 06-04-2018 Gastroenterology Office/Clinic [...] her being referred to Dr. Bowers at [facility] in [place]. She states that she had a colonoscopy [...] Endoscopy history: Colonoscopy done on 04/17/2018 at [facility] Constitutional: 45 pound weight loss since [...] she was placed on steroids at the [facility] GI physician. She states that she [...] MD 06/05/18 15:58 EST Normal [facility] Vital Signs Date Time Vital Sign Value Performing Clinician Facility 06-24-2024 15: Body weight 72.12 kg Sherry Livingstono DO Work Phone: [facility] 06-24-2024 15:02-0500 Diastolic blood pressure 70 mm[Hg] Sherry Aung DO Work Phone: [facility] 06-24-2024 15:02-0500 Systolic blood pressure 120 mm[Hg] Sherry Aung DO Work Phone: [facility] 06-17-2024 14:18-0500 Body weight 73.21 kg Sayra Lawton PA Work Phone: [facility] 06-17-2024 14:18-0500 Diastolic blood pressure 62 mm[Hg] Sayra Juliana PA Work Phone: [facility] 06-17-2024 14:18-0500 Systolic blood pressure 100 mm[Hg] Sayra Andrews PA Work Phone: [facility] 06-11-2024 10:48-0500 Body height 155 cm Devyn Roman MD Work Phone: [facility] 06-11-2024 10:48-0500 Body mass index (BMI) [Ratio] 29.98 kg/m2 Devyn Roman MD Work Phone: [facility] 06-11-2024 10:48-0500 Body weight 72.03 kg Devyn Roman MD Work Phone: [facility] 06-11-2024 10:48-0500 Diastolic blood pressure 83 mm[Hg] Dveyn Roman MD Work Phone: [facility] 06-11-2024 10:48-0500 Heart rate 105 /min Devyn Roman MD Work Phone: [facility] 06-11-2024 10:48-0500 Systolic blood pressure 118 mm[Hg] Devyn Roman MD Work Phone: [facility] 06-10-2024 08:43-0500 Body weight 72.12 kg Sherry Aung DO Work Phone: [facility] 06-10-2024 08:43-0500 Diastolic blood pressure 70 mm[Hg] Sherry Aung DO Work Phone: [facility] 06-10-2024 08:43-0500 Systolic blood pressure 110 mm[Hg] Sherry Aung DO Work Phone: [facility] 06-05-2024 09:00-0500 Body mass index (BMI) [Ratio] 26.55 kg/m2 [facility] 1 [facility] 06-05-2024 09:00-0500 Body temperature 98.4 [degF] [facility] 1 [facility] 06-05-2024 09:00-0500 Body weight 63.78 kg Ppl[facility] 1 [facility] 06-05-2024 09:00-0500 Diastolic blood pressure 73 mm[Hg] [facility]pl[facility] 1 [facility] 06-05-2024 09:00-0500 Heart rate 99 /min [facility] 1 [facility] 06-05-2024 09:00-0500 Respiratory rate 16 /min [facility] 1 [facility] 06-05-2024 09:00-0500 Systolic blood pressure 114 mm[Hg] [facility]pl[facility] 1 [facility] 06-03-2024 08:25-0500 Body weight 70.76 kg Sherry Aung DO Work Phone: [facility] 06-03-2024 08:25-0500 Diastolic blood pressure 68 mm[Hg] Sherry Aung DO Work Phone: [facility] 06-03-2024 08:25-0500 Systolic blood pressure 114 mm[Hg] Sherry Aung DO Work Phone: [facility] 05-16-2024 09:01-0400 Body weight 70.67 kg Sherry Aung DO Work Phone: [facility] 05-16-2024 09:01-0400 Diastolic blood pressure 64 mm[Hg] Sherry Aung DO Work Phone: [facility] 05-16-2024 09:01-0400 Systolic blood pressure 120 mm[Hg] Sherry Aung DO Work Phone: [facility] 05-15-2024 16:05-0400 Diastolic blood pressure 72 mm[Hg] Tt Nst1 [facility] 05-15-2024 16:05-0400 Heart rate 93 /min [address] 05-15-2024 16:05-0400 Systolic blood pressure 110 mm[Hg] [address] 05-02-2024 09:35-0400 Body weight 68.58 kg Sayra BROWN Work Phone: [facility] 05-02-2024 09:35-0400 Diastolic blood pressure 68 mm[Hg] Sayra BROWN Work Phone: [facility] 05-02-2024 09:35-0400 Systolic blood pressure 110 mm[Hg] Sayra BROWN Work Phone: [facility] 10-25-2023 11:28-0400 Body temperature 99.1 [degF] [facility] 2 [facility] 10-25-2023 11:28-0400 Diastolic blood pressure 62 mm[Hg] [facility] 2 [facility] 10-25-2023 11:28-0400 Heart rate 74 /min [facility] 2 [facility] 10-25-2023 11:28-0400 Respiratory rate 18 /min [facility] 2 [facility] 10-25-2023 11:28-0400 Systolic blood pressure 97 mm[Hg] [facility] 2 [facility] 10-25-2023 08:54-0400 Body mass index (BMI) [Ratio] 25.32 kg/m2 [facility] 2 [facility] 10-25-2023 08:54-0400 Body weight 60.[address] [facility] 2 [facility] 08-30-2023 11:44-0500 Body temperature 98.2 [degF] [facility] 1 [facility] 08-30-2023 11:44-0500 Diastolic blood pressure 68 mm[Hg] [facility] 1 [facility] 08-30-2023 11:44-0500 Heart rate 73 /min [facility] 1 [facility] 08-30-2023 11:44-0500 SaO2% (BldA) [Mass fraction] 98 % [facility] 1 [facility] 08-30-2023 11:44-0500 Systolic blood pressure 99 mm[Hg] [facility] 1 [facility] 08-30-2023 09:00-0500 Body mass index (BMI) [Ratio] 26.38 kg/m2 [facility] 1 [facility] 08-30-2023 09:00-0500 Body weight 63.[address] [facility] 1 [facility] Encounters Encounter Date Encounter Type [...] Roman MD Work Phone: [facility] Comment on above: Crohn's disease of b oth small and large intestine with intestinal obstruction (CMS-HCC) (Primary Dx) Start: 06-11-2024 End: 06-11-2024 ambulatory SHERRY R AUNG [facility] Start: 06-10-2024 End: 06-10-2024 Bamboo flowsheet Sherry Aung DO Work Phone: [facility] Start: 06-10-2024 End: 06-10-2024 Bamboo flowsheet Sherry Aung DO Work Phone: [facility] Start: 06-10-2024 End: 06-10-2024 Office outpatient visit 15 minutes Sherry Aung DO Work Phone: [facility] Comment on above: Third trimester preg delfina; 35 weeks gestation of ; Herpes Start: 06-10-2024 End: 06-10-2024 ambulatory SHERRY AUNG Not Available Start: 06-05-2024 End: 06-05-2024 ambulatory [facility] Infusion Chair 1 [facility] Comment on above: Crohn's disease of s mall and large intestines with complication ([facility]-HCC) (Primary Dx) Start: 06-03-2024 End: 06-03-2024 Bamboo flowsheet Sherry Aung DO Work Phone: [facility] Start: 06-03-2024 End: 06-03-2024 Bamboo flowsheet Sherry Aung DO Work Phone: [facility] Start: 06-03-2024 End: 06-03-2024 Office outpatient visit 15 minutes Sherry Aung DO Work Phone: [facility] Comment on above: Third trimester preg delfina; 34 weeks gestation of Start: 06-03-2024 End: 06-03-2024 ambulatory SHERRY AUNG Not Available Start: 05-30-2024 End: 05-30-2024 ambulatory SHERRY R [facility] Start: 05-17-2024 End: 05-17-2024 Orders Only Akila Snider RN [facility] Comment on above: growth restric tion [...] 05-15-2024 End: 05-15-2024 Orders Only Jenni Owen [facility]- [facility] at [facility] Comment on above: growth restric tion antepartum (Primary Dx) Crohn's disease of b oth small and large intestine with intestinal obstruction (CMS-HCC) (Primary Dx); growth restriction antepartum Start: 05-02-2024 End: 05-02-2024 Bamboo flowsheet Sayra BROWN Work Phone: [facility] Start: 05-02-2024 End: 05-02-2024 Bamboo flowsheet Sayra BROWN Work Phone: [facility] Start: 05-02-2024 End: 05-02-2024 Office outpatient visit 15 minutes Sayra BROWN Work Phone: [facility] Comment on above: 30 weeks gestation o f (Primary Dx); Third trimester Start: 05-02-2024 End: 05-02-2024 ambulatory SAYRA ANDREWS Not Available Start: 04-30-2024 End: 04-30-2024 ambulatory [facility] Start: 04-17-2024 End: 04-17-2024 ambulatory SHERRY R [facility] Start: 04-10-2024 End: 04-10-2024 ambulatory [facility] Eriberto [facility] Start: 04-04-2024 End: 04-04-2024 ambulatory SHERRY AUNG Not Available Start: 04-02-2024 End: 04-02-2024 ambulatory SHERRY R [facility] Start: 03-29-2024 End: 03-29-2024 ambulatory [facility] Eriberto [facility] Start: 03-28-2024 End: 03-28-2024 ambulatory DEVYN [facility] Start: 03-28-2024 End: 03-28-2024 ambulatory SHERRY R [facility] Start: 03-19-2024 End: 03-19-[address] [facility] Start: 03-05-2024 End: 03-05-2024 ambulatory SAYRA ANDREWS Not Available Start: 02-29-2024 End: 02-29-2024 ambulatory [facility] Start: 02-20-2024 End: 02-20-2024 ambulatory SHERRY R [facility] Start: 02-14-2024 End: 02-14-2024 ambulatory [facility] Start: 02-06-2024 End: 02-06-2024 ambulatory SHERRY AUNG Not Available Start: 01-09-2024 End: 01-09-2024 ambulatory SHERRY AUNG Not Available Start: 12-20-2023 End: 12-20-2023 ambulatory [facility] Eriberto [facility] Start: 12-11-2023 End: 12-11-2023 ambulatory SHERRY R [facility] Start: 12-08-2023 End: 12-08-2023 ambulatory SHERRY AUNG Not Available Start: 11-30-2023 End: 11-30-2023 ambulatory [facility] Start: 10-25-2023 End: 10-25-2023 ambulatory [facility] Infusion Chair 2 [facility] Comment on above: Crohn's disease of s mall and large intestines with complication (CMS-HCC) (Primary Dx) Start: 10-24-2023 Telephone encounter Amanda Cole RN [facility] Start: 10-08-2023 End: 10-08-2023 Emergency department patient visit PREMA ABRAHAM [facility] Start: 08-30-2023 End: 08-30-[address] [facility] Dh Infusion Chair 1 [facility] Comment on above: Crohn's disease of s mall and large intestines with complication (CMS-HCC) (Primary Dx) Start: 09-17-2019 End: 09-18-2019 Patient encounter procedure PREMA ABRAHAM Facility: Start: 06-04-2018 End: 06-05-2018 Patient encounter procedure Trang Harrison Facility:Gastroenterol ogy [facility] Procedures Date Procedure Procedure Detail [...] [Identifier] in Cervix by Cyto stain [facility] 1 Start: 03-04-2021 Adult depression scr eening assessment [facility] 1 Start: 04-14-2020 H/O: colostomy Colostomy status [facility] 1 Start: 12-03-2019 H/O: ileostomy Ileostomy status [facility] 1 Plan of Treatment Date Care Activity Detail Author Start: 02-05-2027 Screening for malign ant neoplasm of cervix [facility] Start: 06-11-2025 Adult BMI Screening Adult BMI Screen [facility] Start: 06-11-2025 Tobacco Screening [email or web address] Start: 06-05-2025 Adult BMI Screening Adult BMI Screen ing [facility] Start: 05-17-2025 End: 05-17-2025 US MFM with or without consult US MFM with or without consult Imaging Routine growth restriction antepartum Crohn's disease of both small and large intestine with intestinal obstruction (CMS-HCC) 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 Expected: 05/17/2025 (Approximate), Expires: 05/17/2025 [employer] Work Phone: Comment on above: Expected: 05/17/2025 (Approximate), Expires: 05/17/2025 Start: 05-15-2025 Tobacco Screening [facility] Start: 04-17-2025 Adult BMI Screening Adult BMI Screen ing [facility] Start: 11-11-2024 Screening for malign ant neoplasm of cervix Pap [facility]ear [facility] Start: 10-24-2024 Adult BMI Screening Adult BMI Screen ing [facility] Start: 10-07-2024 Tobacco Screening [facility] Start: 08-30-2024 Adult BMI Screening Adult BMI Screen ing [email or web address] Start: 08-12-2024 End: 08-12-2024 Patient encounter procedure 08/12/2024 8:30 AM EST Office Visit [facility] [address] [place] [phone] Suresh Diaz MD [address] [place] [address] [facility] Start: 08-01-2024 End: 08-01-2024 ambulatory 08/01/2024 9:30 AM EST Infusion [facility] [address] [place] [address] [facility] Start: 07-01-2024 End: 07-01-2024 Patient encounter procedure 07/01/2024 1:50 PM EST Routine [facility] [address] [place] [phone] Sayra Andrews, PA [address] [place], [place] [address] [facility] Start: 06-24-2024 End: 06-24-2024 Patient encounter procedure [facility] Comment on above: Arrived Start: 06-17-2024 End: 06-17-2024 Patient encounter procedure 06/17/2024 1:50 PM EST Routine [facility] [address] [place] [id number] Sayra Andrews, PA [address] [place], [facility] Start: 06-11-2024 End: 06-11-2024 Patient encounter procedure [facility] Start: 06-10-2024 End: 06-10-2025 Strep B [...] EST Infusion [facility] [address] [place] [address] [facility] Start: 06-03-2024 End: 06-03-2024 Patient encounter procedure [facility] Comment on above: Arrived Start: 05-30-2024 End: 05-30-2024 Patient encounter procedure 05/30/2024 3:00 PM EDT Appointment [facility] [address] [place] [address] [facility] Start: 05-16-2024 End: 05-16-2024 Patient encounter procedure [facility] Comment on above: Arrived Start: 05-10-2024 Tobacco Screening Tobacco Screening [facility] Start: 05-02-2024 End: 05-02-2024 Patient encounter procedure 05/02/2024 9:30 AM EDT Routine [facility] [address] [place] [phone] Sayra Andrews PA [address] [place] [address] Arrived [facility] Comment on above: Arrived Start: 03-31-2024 Influenza vaccination Influenza Vacc ine [facility] Start: 12-20-2023 End: 12-20-2023 ambulatory 12/20/2023 9:00 AM EDT Infusion [facility] [address] [place] [phone] [facility] Start: 11-30-2023 End: 11-30-2023 Patient encounter procedure 11/30/2023 9:30 AM EDT Office Visit [facility] [address] [place] [address] Suresh Diaz MD [address] [place] [address] [facility] Start: 10-25-2023 End: 10-25-2023 ambulatory 10/25/2023 9:00 AM EDT [facility] [address] [place] [phone] [facility] Start: 03-31-2023 Influenza vaccination Influenza Vacc ine [facility] Start: 03-04-2022 Depression Screening Depression Scre [facility] Start: 2012 DTaP,Tdap and Td Vaccines (1 - Tdap) DTaP,Tdap and Td Vaccines (1 - Tdap) [facility] Start: 2011 Adult BMI Follow Up Plan Adult BMI Follow Up Plan [facility] Start: 2005 Depression Screening Depression Scre [facility] End: 10-24-2024 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[employer] Lab Routine Crohn's disease of small and large intestines with complication ([facility]-HCC) 1 Occurrences starting 10/25/2023 until 10/24/2024 [facility] Work Phone: Comment on above: 1 Occurrences starti ng 10/25/2023 until 10/24/2024 Payers Date Payer Category Payer Medicaid [id number] 2022 Medicaid [id number] 1995 Unknown [id number] 2.16.8 40.1.714230.3.579.2.196 1993 Unknown [id number] 2.16.84 0.1.887845.3.579.2.593 1993 Unknown [id number] 2.16.8 40.1.275770.3.579.2.1286 1993 Unknown [id number] 2.16.8 40.1.928768.3.579.2.1286 1993 Unknown [id number] 2.16.8 40.1.207918.3.579.2.1286 1993 Unknown [id number] 2.16.8 40.1.504253.3.579.2.1285 1993 Unknown [id number] 2.16.8 40.1.442626.3.579.2.1285 1993 Unknown [id number] 2.16.8 40.1.918077.3.579.2.1285 1993 Unknown [id number] 2.16.8 40.1.880740.3.579.2.1285 1993 Unknown [id number] 2.16.8 40.1.260289.3.579.2.1285 1993 Unknown [id number] 2.16.8 40.1.737068.3.579.2.1285 1993 Unknown [id number] 2.16.8 40.1.485316.3.579.2.1285 1993 Unknown [id number] 2.16.8 40.1.339754.3.579.2.1285 1993 Unknown [id number] 2.16.8 40.1.168428.3.579.2.1285 1993 Unknown [id number] 2.16.8 40.1.193899.3.579.2.1285 1993 Unknown [id number] 2.16.8 40.1.427241.3.579.2.1285 1993 Unknown [id number] 2.16.8 40.1.883866.3.579.2.1285 1993 Unknown [id number] 2.16.8 40.1.975626.3.579.2.1285 1993 Unknown [id number] 2.16.8 40.1.862069.3.579.2.1285 1993 Unknown [id number] 2.16.8 40.1.472450.3.579.2.1285 1993 Unknown [id number] 2.16.8 40.1.519463.3.579.2.1286 1993 Unknown [id number] 2.16.8 40.1.420695.3.579.2.1286 1993 Unknown [id number] 2.16.8 40.1.203067.3.579.2.1286 1993 Unknown [id number] 2.16.8 40.1.659095.3.579.2.1286 1993 Unknown [id number] 2.16.8 40.1.276852.3.579.2.1286 1993 Unknown [id number] 2.16.8 40.1.572289.3.579.2.1286 1993 Unknown [id number] 2.16.8 40.1.583970.3.579.2.1286 1993 Unknown [id number] 2.16.8 40.1.879494.3.579.2.1286 1993 Unknown [id number] 2.16.84 0.1.265409.3.579.2.1259 1993 Unknown [id number] 2.16.84 0.1.914391.3.579.2.9 1993 Unknown [id number] 2.16.84 0.1.378209.3.579.2.1259 1993 Unknown [id number] 2.16.84 0.1.897682.3.579.2.1259 1993 Unknown [id number] 2.16.84 0.1.960975.3.579.2.1259 1993 Unknown [id number] 2.16.84 0.1.295769.3.579.2.1259 1993 Unknown [id number] 2.16.84 0.1.051517.3.579.2.9 1993 Unknown [id number] 2.16.84 0.1.127263.3.579.2.1259 1993 Unknown [id number] 2.16.84 0.1.381431.3.579.2.1259 1993 Unknown [id number] 2.16.84 0.1.232562.3.579.2.1259 1993 Unknown [id number] 2.16.84 0.1.993886.3.579.2.1259 1959 Self-pay [id number] 07-31-1799 Self-pay Social History Date Type Detail Facility Start: 07-05-2022 End: 12-08-2023 Tobacco smoking status NHIS Never smoked tobacco [facility] Start: 07-05-2022 End: 12-08-2023 Tobacco use and exposure Smokeless tobacco non-user [facility] Start: 05-10-2023 End: 10-08-2023 Alcohol intake Current drinker of alcohol (finding) [facility] Start: 05-10-2023 End: 12-08-2023 Alcohol intake [facility] Start: 08-06-2020 End: 12-08-2023 Social connection and isolation panel [facility] Do you belong to any clubs or organizations such as mu-ism groups, unions, fraternal or athletic groups, or school groups? No [facility] Are you now , , , , never or living with a partner? [facility] How often to you hav e a drink containing alcohol? 2-4 times a month [facility] Average Number of Drinks Not on file [facility] Do you feel stress - tense, restless, nervous, or anxious, or unable to sleep at night because your mind is troubled all the time - these days [OSQ] Only a little [facility] Start: 12-22-2021 Alcohol Comment socially [facility] Start: 1995 Sex Assigned At Not on file P [facility] Start: 05-02-2024 End: 06-24-2024 Alcoholic beverage intake Ex-drinker (finding) [facility] Start: 10-17-2023 [facility] Start: 10-16-2019 Sex Female (finding) [facility] Goals Date Patient Goal Desired Activity /State Personal health goal Comment on above: Formatting of this n ote might be different from the original. Evaluation of progress towards goal: Patient plans to return home with [facility] Clinical Notes 08-30-2023 to 06-24-2024 Paddy [...] nursing note reviewed. Exam conducted with a licensed investment sales assistant present. Vitals: There is no height [...] Sherry Horan DO documented in this encounter [facility] 06-17-2024 History of Presen t illness [...] of: STEPHANIE Thorne documented in this encounter [facility] 06-11-2024 History of Presen t illness [...] intestine with intestinal obstruction (CMS-HCC) Ileostomy status ([facility]-HCC) Colostomy status ([facility]) Rectal stricture Crohn's disease of small and large intestines with complication ([facility]) Cyst of right ovary Poor growth affecting [...] DEVYN ROMAN MD documented in this encounter [facility] 06-10-2024 History of Presen t illness Narrative [...] nursing note reviewed. Exam conducted with a licensed investment sales assistant present. Vitals: There is no height [...] Sherry Horan DO documented in this encounter [facility] 06-05-2024 History of Presen t illness Narrative IV Infusion START time: 914 Patient here for Entyvio infusion. Patient denies any recent infections, open wounds, recent/future surgery, or insurance changes. IV started with 22g needle to Right AC by Renuka Middleton RN x1 attempt. Patient tolerated well. Remicade Lot# [id number] Exp- 08/27/2026 Time out performed prior to medication administration. Name, , medication(s) verified IV Infusion END time: 1124 patient infusion complete. IV discontinued, catheter intact, vitals WNL. Patient tolerated infusion well PIV flushed with 10 ml of 0.9% NS after medication infused documented in this encounter [facility] 06-03-2024 History of Presen t illness Narrative [...] nursing note reviewed. Exam conducted with a licensed investment sales assistant present. Vitals: There is no height [...] Sherry Horan DO documented in this encounter [facility] 05-16-2024 History of Presen t illness [...] Past Medical History: Diagnosis Date Crohn's disease ([facility]) Genital warts Herpes Ovarian cyst [...] nursing note reviewed. Exam conducted with a licensed investment sales assistant present. Vitals: There is no height [...] order to have NST/BPP done locally at [facility]. Documented by Paddy Garza LPN on behalf of: Sherry Horan DO documented in this encounter [facility] 05-15-2024 History of Presen t illness [...] all scheduled appointments documented in this encounter [facility] 05-02-2024 History of Presen t illness Narrative [...] of: STEPHANIE Thorne documented in this encounter [facility] 10-25-2023 History of Presen t illness Narrative 0900 Patient here for Avsola infusion. Patient denies any recent infections, open wounds, recent/future surgery, or insurance changes . IV started with 22g needle to right AC by paddy gill x 1 attempt . Patient tolerated well. Avsola x 2 vials, lot# [id number], exp date Avsola x 1 vial, lot# [id number], exp date 02/27/2027 Time out performed with [...] of info given. documented in this encounter [facility] 10-24-2023 Miscellaneous Notes Formattin g of this note might be different from the original. Patient currently receiving Avsola 5mg/kg every 8 weeks. 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 Prior auth request forms completed for Remicade 5mg/kg to be given every 56 days, faxed to [phone] Remicade approved for 5mg/kg (400mg) for 7 visits from 10/25/2023-10/23/2024. Auth # [id number] Referral placed. Therapy plan updated. Flowsheet updated. documented in this encounter [facility] 10-24-2023 Telephone encount er Note Patient currently receiving Avsola 5mg/kg every 8 weeks. 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 Prior auth request forms completed for Remicade 5mg/kg to be given every 56 days, faxed to [phone] [facility] 10-24-2023 Telephone encount er Note Remicade approved for 5mg/kg (400mg) for 7 visits from 10/25/2023-10/23/2024. Auth # [id number] Referral placed. Therapy plan updated. Flowsheet updated. [facility] 08-30-2023 History of Presen t illness Narrative 0906 Patient here for Avsola infusion. Patient denies any recent infections, open wounds, recent/future surgery, or insurance changes . Site cleansed with alcohol. IV started with 22g needle by Juan M GILL in right antecube. Patient tolerated well. 1142 patient infusion complete. IV discontinued at 1142. Patient tolerated infusion well. documented in this encounter [facility] Evaluation note Diagnosis Crohn's disease of small and large intestines with complication (CMS-HCC)- Primary [facility] Diagnosis Crohn's disease of small and large intestines with complication (CMS-HCC)- Primary [facility] Diagnosis 30 weeks gestation of - Primary Third trimester state, incidental [facility] Diagnosis Crohn's disease of both small and large intestine with intestinal obstruction (CMS-HCC)- Primary growth restriction antepartum growth restriction antepartum- Primary [facility] Diagnosis Crohn's disease of both small and large intestine with intestinal obstruction (CMS-HCC)- Primary growth restriction antepartum [facility] Diagnosis 32 weeks gestation of Third trimester state, incidental [facility] Diagnosis growth restriction antepartum- Primary Crohn's disease of both small and large intestine with intestinal obstruction (CMS-HCC) 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 [facility] Diagnosis Third trimester state, incidental 34 weeks gestation of [facility] Diagnosis Crohn's disease of small and large intestines with complication (CMS-HCC)- Primary [facility] Diagnosis Third trimester state, incidental 35 weeks gestation of Herpes Herpes simplex without mention of complication [facility] Diagnosis Crohn's disease of both small and large intestine with intestinal obstruction (CMS-HCC)- Primary [facility] Diagnosis 36 weeks gestation of Third trimester state, incidental [facility] Diagnosis 37 weeks gestation of Third trimester state, incidental documented [facility] this [facility]ructionsNot on filedocumented in this [facility] SystemInstructionsNot on filedocumented in this encounterProAv[facility] SystemInstructionsNot on filedocumented in this encounterBelle[facility] SystemInstructionsNot on filedocumented in this encounterB[facility] InstructionsNot on filedocumented in this encounterB[facility] InstructionsNot on filedocumented in this encounterBellevue [facility] Summary Purpose Family History No [...] content) DATE CREATED AUTHOR 07/08/2018 [facility] DATE CREATED AUTHOR AUTHOR'S ORGANIZ ATION 09/20/2019 [facility] DATE CREATED AUTHOR AUTHOR'S ORGANIZ ATION 12/18/2019 [facility] DATE CREATED AUTHOR AUTHOR'S ORGANIZ ATION 04/03/2024 [facility] DATE CREATED AUTHOR AUTHOR'S ORGANIZ ATION 06/06/2024 [facility] DATE CREATED AUTHOR AUTHOR'S ORGANIZ ATION 06/13/2024 [facility] DATE CREATED AUTHOR AUTHOR'S ORGANIZ ATION 06/27/2024 [facility] EPIC Reason for Visit [...] 10 MG INFUSION Prema Abraham MD [address] [place] [address] [facility] [address] [address] Referral ID Status Reason Start Date Expiration Date V isits Requested Visits Authorized [id number] Authorized 02/02/2023 02/02/2024 7 7 Reason Comments Outpatient Infusion Avsola Reason Comments Routine Visit Reason Comments add on NST for FGR Specialty Diagnoses / Procedures Referred By Theodore kholi Referred To Contact Maternal and Medicine Diagnoses growth restriction antepartum Procedures nonstress test - Maternal Medicine Devyn Roman MD [address] [facility] [address] [place] [address] Phone: tel: fax: Maternal- Medicine at [facility] [address] [place] [address] Phone: tel: fax: Referral ID Status Reason Start Date Expiration Date V isits Requested Visits Authorized [id number] Pending Review 05/15/2024 05/15/2025 1 1 Reason Comments Outpatient Infusion Remicade Specialty Diagnoses / Procedures Referred By Theodore kohli Referred To Contact Gastroenterology Diagnoses Crohn's disease of both small and large intestine with unspecified complications Remicade 5mg/kg every 56 days ( 400 mg) Auth'd from 10/25/2023-10/23/2024 for 7 Visits, HK/CF, Crohn's Procedures MS INFLIXIMAB INJECTION INFUSION Prema Abraham MD [address] [place] [id number] Phone: tel: fax: [facility] [address] [address] Phone: tel: fax: Referral ID Status Reason Start Date Expiration Date V isits Requested Visits Authorized [id number] Authorized 12/20/2023 12/19/2024 7 7 Reason Comments growth restriction history of bowel resection Chrohns disease Care Teams (unrecognized sec tion and content) Scrap Shear Operator Relationship Specialty Start Date End Date Prema Abraham MD [address] [place] [address] PCP - General Family Medicine 12/17/19 Scrap Shear Operator Relationship Specialty Start Date End Date Prema Abraham MD [address] [place] [address] PCP - General Family Medicine 10/08/23 Scrap Shear Operator Relationship Specialty Start Date End Date Prema Abraham MD [address] [place], [place] [id number] PCP - General Family Medicine 10/08/23 Scrap Shear Operator Relationship Specialty Start Date End Date Prema Abraham MD [address] [place], [place] [id number] PCP - General Family Medicine 02/29/24 Scrap Shear Operator Relationship Specialty Start Date End Date Prema Abraham MD [address] [place], [place] [id number] PCP - General Family Medicine 02/29/24 Scrap Shear Operator Relationship Specialty Start Date End Date Prema Abraham MD [address] [place] [address] PCP - General Family Medicine 02/29/24 Scrap Shear Operator Relationship Specialty Start Date End Date Prema Abraham MD [address] [place] [address] PCP - General Family Medicine 02/29/24 Scrap Shear Operator Relationship Specialty [place] [address] [place] [id number] PCP - General Family Medicine 02/29/24 FOR [...] BE BASED ON THE PRIMARY CLINICAL RECORDS. [employer] [facility]. provides no warranty or guarantee of the accuracy or completeness of information in this document.
[2024-07-02] MEDS: 0.9 % SODIUM CHLORIDE 1,000 ML 1000 ML IV ×2 (05:30→06:10)
[2024-07-02 05:32] LABS: Basophils Percent Auto 0.2 % (0.2-2.0); Eosinophils Absolute Auto 0.3 10^3/uL (0.0-0.7); Eosinophils Percent Auto 2.9 % (0.9-7.0); Hematocrit 36.8 % (36.0-48.0); Hemoglobin 12.6 g/dL (12.0-16.0); Immature Granulocytes Abs Auto 0.06 10^3/uL (0.00-0.03); Immature Granulocytes Pct Auto 0.5 % (0.0-0.5); Lymphocytes Percent Auto 17.9 % (20.5-60.0); Mean Corpuscular HGB Conc 34.2 g/dL (29.9-35.2); Mean Corpuscular Hemoglobin 31.4 pg (26.7-34.0); Mean Corpuscular Volume 91.8 fL (81.0-99.0); Mean Platelet Volume 9.7 fL (9.5-13.5); Monocytes Absolute Auto 0.7 10^3/uL (0.3-0.8); Monocytes Percent Auto 5.9 % (1.7-12.0); Neutrophils Absolute Auto 8.1 10^3/uL (1.4-6.5); Neutrophils Percent Auto 72.6 % (43.0-75.0); Platelet Count 246 10^3/uL (150-450); Red Blood Count 4.01 10^6/uL (4.20-5.40); White Blood Count 11.1 10^3/uL (4.0-11.0)
[2024-07-02 05:34] LABS: Bilirubin Urine NEGATIVE (NEGATIVE); Blood Urine NEGATIVE (NEGATIVE); Clarity Urine CLEAR (CLEAR); Color Urine YELLOW (YELLOW); Glucose Urine UA NEGATIVE (NEGATIVE); Ketones Urine NEGATIVE (NEGATIVE); Leukocyte Esterase Urine NEGATIVE (NEGATIVE); Nitrite Urine NEGATIVE (NEGATIVE); Protein Urine NEGATIVE (NEG/TRACE); Specific Gravity Urine >=1.030 (1.005-1.025); Urobilinogen Urine 0.2 EU/dL (0.2-1.0)
[2024-07-02 05:43] LABS: Amphetamine Screen Urine NEGATIVE (NEGATIVE); Barbiturates Screen Urine NEGATIVE (NEGATIVE); Benzodiazepines Screen Urine NEGATIVE (NEGATIVE); Buprenorphine Screen Urine NEGATIVE (NEGATIVE); Cannabinoid Screen Urine NEGATIVE (NEGATIVE); Cocaine Screen Urine NEGATIVE (NEGATIVE); Methadone Screen Urine NEGATIVE (NEGATIVE); Methamphetamines Screen Urine NEGATIVE (NEGATIVE); Opiate Screen Urine NEGATIVE (NEGATIVE); Oxycodone Screen Urine NEGATIVE (NEGATIVE); Phencyclidine Screen Urine NEGATIVE (NEGATIVE); Tricyclic Antidepressant Urine NEGATIVE (NEGATIVE)
[2024-07-02 05:49] LABS: Bacteria Urine LARGE #/HPF (NONE SEEN); Calcium Oxalate Crystals Urine RARE; Cast Seen? NONE SEEN #/LPF (NONE SEEN); Crystals Seen? Seen #/HPF (None Seen); Mucus Urine NONE SEEN (NONE SEEN); RBC Urine 0-2 #/HPF (0-2); Squamous Epithelial Cell Urine MANY #/LPF (NONE/RARE); WBC Urine 0-2 #/HPF (NONE SEEN)
[2024-07-02 05:50] LABS: Urine Culture Indicated YES
[2024-07-02] MEDS: FAMOTIDINE/PF 20 MG/2 ML VIAL IV (07:14)
[2024-07-02] MEDS: METOCLOPRAMIDE HCL 10 MG/2 ML VIAL IVP (07:14)
[2024-07-02] MEDS: CITRIC ACID/SODIUM CITRATE 30 ML SOLUTION ORACIT SHOHL'S SOLN PO (07:14)
[2024-07-02] MEDS: CEFAZOLIN SODIUM/DEXTROSE,ISO 2 GM/50 ML PIGGYBACK IV ×2 (07:18→12:06)
--- NOTE | 2024-07-02 07:28 | W.PC.ACHO ---
Registration Status: ADM IN Primary Language: Mauritanian Preferred Language: Mauritanian Report given to Chai GILL at 0700. Active Medications Generic Name Dose Route Start Last Admin Trade Name Freq PRN Reason Stop Dose Admin Oxytocin/Sodium Chloride 20 units in 1,000 mls @ 125 mls/hr 07/02/24 05:00 Pitocin 20 Unit/1,000 Ml-Ns IV Q8H PRN POST DELIVERY Valacyclovir HCl 500 mg 07/03/24 09:00 Valacyclovir Hcl 500 Mg Tablet PO DAILY ZANDER Consults Category Date Time Status Consult to Anesthesiology Routine Cons 07/02/24 Ordered IV Insertion/Site Date of IV Line Insertion [ 07/02/24 Short PIV (<1.75 in) 20g right Forearm] IV Insertion Time [Short PIV ( 05:25 <1.75 in) 20g right Forearm] Neurology Patient orientation (short person,place,time list) Respiratory Oxygen Delivery Method Room Air
[2024-07-02] MEDS: OXYTOCIN/0.9 % SODIUM CHLORIDE 20 UNITS/1,000 ML PLAST..BAG 125 UNIT IV (08:23)
--- NOTE | 2024-07-02 08:45 | P.ON_ITS ---
Brief Operative Note Date of procedure: 07/02/24 Pre-op diagnosis general: previous c/s, iup at 39wks, small for gestation age Post-op diagnosis: same as pre-op Procedure: NAME OF PROCEDURE: [ section ] PROCEDURE: Patient was taken back to the Operating Room where she was given a spinal anesthesia with Duramorph without difficulty. She was prepped and draped in the normal sterile fashion. A Pfannenstiel skin incision was then made 2 cm above the symphysis pubis and carried down to underlying rectus fascia using a Bovie. The fascia was incised in the midline and extended laterally using Roque scissors. Two Coty clamps were placed on the superior aspect of the fascia and dissected off the underlying rectus muscles. The same was performed on the inferior aspect as well. The muscles were then in the midline. Peritoneum was identified and entered bluntly. The peritoneum was then extended superiorly and inferiorly with good visualization of the bladder. The bladder blade was inserted. A low transverse incision was made on the patient's uterus and extended laterally digitally. The was then delivered atraumatically after the bladder blade was removed in the cephalic position. The cord was clamped and cut. Cord blood was obtained. The was handed off to awaiting team. The patient's placenta was spontaneously delivered. The uterus was then exteriorized. The uterus was cleared of all clots and debris. The bladder blade was reinserted. The patient's uterine incision was closed using #0 Vicryl in a running lock fashion. Excellent hemostasis was assured. The uterus was then returned to the patient's abdomen. The patient's abdomen was copiously irrigated using warm saline. Peritoneal gutters were cleared of all clots and debris. Again excellent hemostasis was assured. The patient's peritoneum was closed using 3-0 Vicryl in a running fashion. The patient's fascia was closed using #0 Vicryl in a running fashion. The patient's skin was closed using 4-0 Vicryl subcuticularly. The patient tolerated the procedure well. Sponge, lap, and needle counts were correct x2. The patient was taken to the Recovery Room in stable condition. Anesthesia: spinal Surgeon: Art Horan Burning Supervisor: Trinh Wills Estimated blood loss (mL): 575 Pathology: other (placenta) Condition: stable Disposition: PACU
--- NOTE | 2024-07-02 08:47 | PM.OBPRCCS ---
Procedure Regulatory Process Manager: Trinh Wills Estimated blood loss (mL): 575 Disposition: PACU Anesthesia type: Spinal
[2024-07-02] MEDS: 0.9 % SODIUM CHLORIDE 1,000 ML 125 ML IV (09:45)
[2024-07-02] MEDS: KETOROLAC TROMETHAMINE 30 MG/ML VIAL IVP ×2 (14:04→21:18)
[2024-07-02] MEDS: ACETAMINOPHEN 500 MG TABLET 1000 MG PO (16:14)
[2024-07-03] VITALS (7 sets, daily range): BP systolic 114–125; BP diastolic 76–83; PULSE 81–95; TEMP 36.5–36.7; O2SAT 97–99
[2024-07-03] MEDS: ACETAMINOPHEN 500 MG TABLET 1000 MG PO ×3 (03:15→16:46)
[2024-07-03] MEDS: KETOROLAC TROMETHAMINE 30 MG/ML VIAL IVP (03:15)
[2024-07-03] MEDS: ENOXAPARIN SODIUM 40 MG/0.4 ML SYRINGE SUBQ (03:16)
[2024-07-03 06:23] LABS: Basophils Percent Auto 0.2 % (0.2-2.0); Eosinophils Absolute Auto 0.1 10^3/uL (0.0-0.7); Eosinophils Percent Auto 0.6 % (0.9-7.0); Hematocrit 27.7 % (36.0-48.0); Hemoglobin 9.3 g/dL (12.0-16.0); Immature Granulocytes Abs Auto 0.08 10^3/uL (0.00-0.03); Immature Granulocytes Pct Auto 0.4 % (0.0-0.5); Lymphocytes Absolute Auto 2.6 10^3/uL (1.2-3.8); Lymphocytes Percent Auto 14.4 % (20.5-60.0); Mean Corpuscular HGB Conc 33.6 g/dL (29.9-35.2); Mean Corpuscular Hemoglobin 31.6 pg (26.7-34.0); Mean Corpuscular Volume 94.2 fL (81.0-99.0); Mean Platelet Volume 10.1 fL (9.5-13.5); Monocytes Absolute Auto 1.1 10^3/uL (0.3-0.8); Monocytes Percent Auto 6.2 % (1.7-12.0); Neutrophils Percent Auto 78.2 % (43.0-75.0); Platelet Count 225 10^3/uL (150-450); Red Blood Count 2.94 10^6/uL (4.20-5.40); Red Cell Distribution Width 13.2 % (11.0-15.0); White Blood Count 17.9 10^3/uL (4.0-11.0)
[2024-07-03] MEDS: VALACYCLOVIR HCL 500 MG TABLET PO (08:17)
--- NOTE | 2024-07-03 08:17 | P.OBPN_ITS ---
OB - PN: Subj Subjective Patient comments: no complaints and pain well controlled [place] status: doing well Exam Constitutional Vital Signs, click to edit/add: Last Vital Signs Temp 97.7 F 07/03/24 08:11 Pulse 102 H 07/02/24 11:30 Resp 18 07/03/24 08:11 BP 117/77 07/03/24 08:11 Pulse Ox 99 07/03/24 08:12 O2 Del Method Room Air 07/03/24 08:12 Documenting provider has reviewed patient's vital signs: yes Common normals: no apparent distress Respiratory Common normals: clear to auscultation bilaterally Cardio Common normals: regular rate and regular rhythm GI Common normals: Normal to inspection, nondistended, normoactive bowel sounds present Extremity Common normals: no calf tenderness Results Labs Labs: Short CBC 07/03/24 Range/Units 06:12 WBC 17.9 H (4.0-11.0) 10^3/uL Hgb 9.3 L (12.0-16.0) g/dL Hct 27.7 L (36.0-48.0) % Plt Count 225 (150-450) 10^3/uL Urinary Catheter Management Urinary Catheter Management Urethral: Cath placed during this visit: yes, but has since been removed by the nurse Insertion date: 07/02/24 Insertion time: 07:50 Removal date: 07/02/24 Removal time: 17:50 OB - PN: A/P Plan - day: 1 Plan: routine postop care Time Spent with Patient Time: Total time spent is greater than 50% in coordination of care (as documented) at patient's floor/unit and/or counseling patient: Total time spent with greater than 50% in coordination of care (as documented) at patient's floor/unit and/or counseling patient: less than 15 minutes
[2024-07-03] MEDS: DOCUSATE SODIUM 100 MG CAPSULE PO ×2 (08:18→20:07)
[2024-07-03] MEDS: SIMETHICONE 80 MG TAB.CHEW PO (08:28)
[2024-07-03] MEDS: AZITHROMYCIN 250 MG TABLET 500 MG PO (10:15)
--- NOTE | 2024-07-03 11:13 | RESP.RT ---
done per nsg
[2024-07-03] MEDS: IBUPROFEN 400 MG TABLET 800 MG PO ×3 (11:52→23:29)
[2024-07-04] MEDS: ACETAMINOPHEN 500 MG TABLET 1000 MG PO ×2 (00:22→08:51)
[2024-07-04] MEDS: ENOXAPARIN SODIUM 40 MG/0.4 ML SYRINGE SUBQ (03:27)
[2024-07-04] MEDS: IBUPROFEN 400 MG TABLET 800 MG PO ×2 (06:41→15:26)
--- NOTE | 2024-07-04 08:30 | PM.OBPN ---
OB - PN: Subj Subjective Patient comments: no complaints and pain well controlled [place] status: doing well Exam Constitutional Vital Signs, click to edit/add: Last Vital Signs Temp 98.0 F 07/03/24 23:20 Pulse 95 H 07/03/24 23:20 Resp 16 07/03/24 23:20 BP 125/83 07/03/24 23:20 Pulse Ox 98 07/03/24 17:38 O2 Del Method Room Air 07/03/24 23:21 Documenting provider has reviewed patient's vital signs: yes Common normals: no apparent distress Respiratory Common normals: normal respiratory effort and clear to auscultation bilaterally Cardio Common normals: regular rate and regular rhythm GI Common normals: Normal to inspection, nondistended, normoactive bowel sounds present Extremity Common normals: no calf tenderness Urinary Catheter Management Urinary Catheter Management Urethral: Cath placed during this visit: yes, but has since been removed by the nurse Insertion date: 07/02/24 Insertion time: 07:50 Removal date: 07/02/24 Removal time: 17:50 OB - PN: A/P Plan - day: 2 Plan: routine postop care, discharge home and other (fu 1wk) Time Spent with Patient Time: Total time spent is greater than 50% in coordination of care (as documented) at patient's floor/unit and/or counseling patient: Total time spent with greater than 50% in coordination of care (as documented) at patient's floor/unit and/or counseling patient: less than 15 minutes
[2024-07-04 08:50] VITALS: O2SAT 97
[2024-07-04] MEDS: VALACYCLOVIR HCL 500 MG TABLET PO (08:51)
[2024-07-04] MEDS: AZITHROMYCIN 250 MG TABLET PO (08:51)
[2024-07-04 08:52] VITALS: BP 133/79; PULSE 110
--- NOTE | 2024-07-04 14:26 | RESP.RT ---
Done per nursing
--- NOTE | 2024-07-04 18:50 | DS_ITS ---
DISCHARGE DATE: ??07/04/2024 ? PRIMARY DIAGNOSES: 1.? Intrauterine at 39 weeks. 2.? Small for gestational age. 3.? Previous . ? PROCEDURE:? section. ? HOSPITAL COURSE:? As expected.? Please see chart for full details.? ? LABORATORY DATA:? Please see chart. ? COMPLICATIONS:? None. ? DISCHARGE CONDITION:? Stable. ? CONSULTATION:? Anesthesia. ? DISCHARGE INSTRUCTIONS: 1.? Diet:? Regular. 2.? Medications: a.? Percocet 5/325 one to two p.o. every 4-6 hours p.r.n. pain. b.? Motrin 800 one p.o. every 8 hours p.r.n. pain. 3.? Followup in one week.Restrictions:? Pelvic rest for 6 weeks.? No heavy lifting.? May drive when pain free and no longer on narcotics. MTDD
== END 2024-07-04 18:50 | disposition home or self-care (01) | DRG 540 ==
PROVIDERS: Admitting Provider Obstetrics & Gynecology; PCP Family Medicine; Visit Provider Obstetrics & Gynecology
DX: O34.211 Maternal care for low transverse scar from previous cesarean delivery (principal); O99.62 Diseases of the digestive system complicating childbirth; Z3A.39 39 weeks gestation of pregnancy; Z37.0 Single live birth; K50.90 Crohn's disease, unspecified, without complications; Z90.49 Acquired absence of other specified parts of digestive tract; O36.5930 Maternal care for other known or suspected poor fetal growth, third trimester, not applicable or unspecified
CPT/HCPCS: 36415; 51702; 59025; 64488; 80307; 81001; 85025; 86850; 86900; 86901; 87086; 88307; 94667; 94668; J0131; J0690; J1100; J1650; J1885; J2274; J2371; J2405; J2590; J2765

== ENCOUNTER 2025-01-30 14:39 | Outpatient (OUT) | payer MEDICAID, SELFPAY ==
--- NOTE | 2025-01-30 14:42 | US_ITS ---
The [address] [address] Patient Name: ZAINAB SAAVEDRA MRN: [id number] date: 1995 Sex: F Assigned Patient Location: Current Patient Location: Accession/Order Number: [id number] Exam Date: 01/30/2025 15:50 Report Date: 01/30/2025 15:51 At the request of: SHERRY REYNA DO Procedure: US pelvis w/ transvaginal Pelvic ultrasound. Reason for exam: Menorrhagia Comparison: none Technique: Transabdominal imaging of the uterus and ovaries was performed. Transvaginal imaging of the uterus and ovaries was also obtained. Additional spectral Doppler analysis of the ovaries was also obtained. Findings: Uterus measures 7.8 x 3.2 x 5.3 cm. No fibroid. Endometrium measures 3 mm without focal abnormality. Right ovary measures 2.9 x 2.3 x 2.8 cm. Left ovary measures 2.6 x 1.5 x 2.8 cm. Normal arterial and venous Doppler waveforms. Small amount of free fluid is seen. US/US pelvis w/ transvaginal Impression: Unremarkable pelvic ultrasound. Impression dictated by: Doroteo Finley Jr., D.O. 01/30/2025 3:51 PM Dictation Location: [place] [address] Electronically authenticated by: [id number] Y Date: 01/30/2025 15:51
[2025-01-30 15:43] LABS: Hematocrit 36.7 % (36.0-48.0); Hemoglobin 11.9 g/dL (12.0-16.0); Immature Granulocytes Abs Auto 0.01 10^3/uL (0.00-0.03); Immature Granulocytes Pct Auto 0.1 % (0.0-0.5); Lymphocytes Absolute Auto 1.8 10^3/uL (1.2-3.8); Mean Corpuscular HGB Conc 32.4 g/dL (29.9-35.2); Mean Corpuscular Hemoglobin 28.7 pg (26.7-34.0); Mean Corpuscular Volume 88.4 fL (81.0-99.0); Platelet Count 350 10^3/uL (150-450); Red Blood Count 4.15 10^6/uL (4.20-5.40); White Blood Count 7.3 10^3/uL (4.0-11.0)
[2025-01-30 16:01] LABS: Thyroid Stimulating Hormone 1.131 uIU/mL (0.358-3.740)
[2025-01-31 04:07] LABS: FSH 5.1 mIU/mL (.)
[2025-02-05 02:12] LABS: DHEA, Serum 139 ng/dL (31-701)
== END 2025-01-30 14:40 | disposition home or self-care (01) ==
LOC: US 14:39
PROVIDERS: PCP Family Medicine; Visit Provider Obstetrics & Gynecology
DX: N92.0 Excessive and frequent menstruation with regular cycle (principal); E28.2 Polycystic ovarian syndrome
CPT/HCPCS: 36415; 76830; 76856; 82626; 82627; 83001; 83002; 83036; 84439; 84443; 84702; 85025

== ENCOUNTER 2025-02-10 22:07 | Outpatient (REF) | payer MEDICAID, SELFPAY ==
--- OUTSIDE RECORDS SUMMARY | 2025-02-10 22:12 | XMS_ITS | CCD ---
Author Organization [facility] Care Team Providers Care Honing Machine Set Up Operator Tool Name Role Phone Trang Harrison Unavailable Unavailable Sean Abraham Unavailable Unavaila SEAN Mahan Admitting Unavailable SEAN ABRAHAM Attending Unavailable SEAN ABRAHAM Primary Care Unavailable ALLISON TOWNSEND V Consulting Unavailable SEAN ABRAHAM Consulting Unavailable SEAN ABRAHAM Primary Care Unavailable AUNG, ART R Referring Unavailable SEAN ABRAHAM Referring Unavailable SEAN ABRAHAM Primary Care Unavailable Unavailable Primary Care Provider UnavailSEAN Sheriff Referring Unavailable SEAN ABRAHAM Primary Care Unavailable SURESH DIAZ Referring Unavailable SEAN ABRAHAM Referring Unavailable SEAN ABRAHAM Primary Care Unavailable Sean Abraham Primary Care Unavailable Art Horan Attending Unavailable Art Horan Admitting Unavailable Sean Abraham MD Primary Care Provider Unavailable Primary Care Provider UnavailSean Sheriff MD Primary Care Provider Sean Abraham MD Primary Care Provider Sean Abraham MD Primary Care Provider ART HORAN R Referring Unavailable MAYCO ROMAN Attending Unavailable JANNA MACDONALD Referring Unavailab SURESH Garces Attending Unavailable SEAN ABRAHAM Primary Care Unavailable YADIRA CHAU Attending Unavaila MAYCO Vears Referring Unavailable SEAN ABRAHAM Primary Care Unavailable YADIRA CHAU Referring Unavaila ble SEAN ABRAHAM Primary Care Unavailable ART HORAN R Referring Unavailable SEAN ABRAHAM Primary Care Unavailable MAYCO ROMAN Attending Unavailable ANGEL KAUFMAN Referring Unavailable SEAN ABRAAHM Primary Care Unavailable AUNG, ART R Referring Unavailable ABRAHAM, SEAN E Primary Care Unavailable AUNG, ART R Referring Unavailable ABRAHAM, SEAN E Primary Care Unavailable MAYCO ROMAN Attending Unavailable AUNG, ART R Referring Unavailable ABRAHAM, SEAN E Primary Care Unavailable AUNG, ART R Referring Unavailable ABRAHAM, SEAN E Primary Care Unavailable PORTIA CORDOVA Referring Unavailable ABRAHAM, SEAN E Primary Care Unavailable ABRAHAM, SEAN E Referring Unavailable ABRAHAM, SEAN E Primary Care Unavailable AUNG, ART R Referring Unavailable ABRAHAM, SEAN E Primary Care Unavailable AUNG, ART R Referring Unavailable ABRAHAM, SEAN E Primary Care Unavailable MAYCO ROMAN Attending Unavailable AUNG, ART R Referring Unavailable ABRAHAM, SEAN E Primary Care Unavailable ABRAHAM, SEAN E Referring Unavailable ABRAHAM, SEAN E Primary Care Unavailable ABRAHAM, SEAN E Referring Unavailable ABRAHAM, SEAN E Primary Care Unavailable SURESH DIAZ Attending Unavailable ABRAHAM, SEAN E Referring Unavailable ABRAHAM, SEAN E Primary Care Unavailable ABRAHAM, SEAN E Referring Unavailable ABRAHAM, SEAN E Primary Care Unavailable ABRAHAM, SEAN E Referring Unavailable ABRAHAM, SEAN E Primary Care Unavailable AUNG, ART Attending Unavailable AUNG, ART Attending Unavailable JULIANA, SAYRA Attending Unavailable AUNG, ART Attending Unavailable JULIANA, SAYRA Attending Unavailable AUNG, ART Attending Unavailable AUNG, ART Attending Unavailable AUNG, ART Attending Unavailable JULIANA, SAYRA Attending Unavailable AUNG, ART Attending Unavailable JULIANA, SAYRA Attending Unavailable Medications Current Medications Medication Drug Class(es) Dates Sig (Normalized) Sig (Original) cholecalciferol 0.025 mg chewable tablet (20 sources) Vitamin D End: 06-17-2024 cholecalciferol, vitamin D3, 25 mcg (1,000 unit) tablet,chewable Chew and swallow daily. Active Ethinyl Estradiol / Ferrous fumarate / Norethindrone (5 sources) Estrogen Start: 01-21-2025 End: 01-21-2026 norethindrone-ethi nyl estradiol (08/19) 1-20 MG-MCG tablet Indications: Menorrhagia with regular cycle Take 1 tablet by mouth Daily 28 tablet 11 01/21/2025 01/21/2026 Active folic acid 1 mg oral tablet (14 sources) Start: 01-01-2024 End: 04-30-2024 folic acid (FOLVITE) 1 mg tablet Take 1 tablet (1,000 mcg total) by mouth. 04/01/2024 Active inFLIXimab-axxq 100 mg injection (20 sources) Tumor Necrosis Factor Leo Start: 12-06-2020 inFLIXimab-axxq (Avsola) 100 MG injection Infuse 5 mg/kg into a venous catheter every 2 months 12/06/2020 Active inFLIXimab-axxq (AVSOLA) 100 mg injection Infuse 5 mg/kg into a venous catheter every 60 (sixty) days. Active End: 12-20-2023 inFLIXimab-abda (RENFLEXIS) 100 mg injection Infuse 5 mg/kg into a venous catheter once. 12/20/2023 Discontinued (Alternate therapy) norethindrone 0.35 mg oral tablet (14 sources) Start: 07-10-2024 End: 07-10-2025 take 1 tablet by mouth once daily, then take 1 tablet by mouth once daily norethindrone (Micronor) 0.35 MG tablet Indications: Encounter for repeat prescription of oral contraceptives Take 1 tablet (0.35 mg) by mouth Daily Take 1 tablet by mouth daily 28 tablet 11 07/10/2024 07/10/2025 Active Vit-Fe Fumarate-FA (Ubisense VITAMINS PO) (20 sources) Start: 11-16-2023 take 1 dose by mouth once daily Vit-Fe Fumarate-FA (Ubisense VITAMINS PO) 1 each Daily 11/16/2023 Active vit37/iron/folic acid (PRENATA ORAL) (20 sources) vit37/iron/folic acid (PRENATA ORAL) Take by mouth daily. Active vit37/i diana/folic acid (PRENATA ORAL) Take by mouth daily. 0 Active pyridoxine hydrochloride 25 mg oral tablet (14 sources) Start: 01-01-2024 End: 04-30-2024 vitamin B-6 25 MG tablet Take 1 tablet (25 mg total) by mouth. 04/03/2024 Active 1000 ml sodium chloride 9 mg/ml injection (7 sources) Start: 01-16-2025 take 25 mL intravenously every hour as needed 25 mL/hr, intravenous, Continuous PRN, When mainline IV needed., Starting on [facility] 01/16/25 at 0855, Match IVF to base solution of product being administered to ensure compatibility. Start: 09-26-2024 End: 09-26-2024 take 25 mL intravenously every hour as needed 25 mL/hr, intravenous, Continuous PRN, When mainline IV needed., Starting on Mon09/26/24 at 0958, Match IVF to base solution of product being administered to ensure compatibility. Start: 04-10-2024 End: 04-10-2024 take 25 mL intravenously every hour as needed 25 mL/hr, intravenous, Continuous PRN, When mainline IV needed., Starting on Mon04/10/24 at 0855, Match IVF to base solution of product being administered to ensure compatibility. Start: 02-14-2024 End: 02-14-2024 take 25 mL intravenously every hour as needed 25 mL/hr, intravenous, Continuous PRN, When mainline IV needed., Starting on Mon02/14/24 at 0905, Match IVF to base solution of product being administered to ensure compatibility. Start: 12-20-2023 End: 12-20-2023 take 25 mL intravenously every hour as needed 25 mL/hr, intravenous, Continuous PRN, When mainline IV needed., Starting on Mon12/20/23 at 0934, Match IVF to base solution of product being administered to ensure compatibility. Start: 10-25-2023 End: 10-25-2023 sodium chloride 0.9 % infusi on Start: 08-30-2023 End: 08-30-2023 sodium chloride 0.9 % infusi on valACYclovir 1000 mg oral tablet (14 sources) Herpesvirus Nucleoside Analog DNA Polymerase Inhibitor, [...] tablet (500 mg total) before bedtime. Active Completed/Discontinued Medications Medication Drug Class(es) Dates Sig (Normalized) Sig (Original) benzonatate 100 mg oral capsule (6 sources) Non-narcotic Antitussive Start: 10-08-2023 End: 12-20-2023 take 1 capsule by mouth three times daily as needed for cough benzonatate (TESSALON PERLES) 100 mg capsule Take 1 capsule (100 mg total) by mouth 3 (three) times a day as needed for cough. 21 capsule 10/08/2023 12/20/2023 Discontinued (Therapy completed) inFLIXimab (REMICADE) 5 mg/kg = 300 mg in sodium chloride 0.9 % (PVC) 250 mL IVPB (1 source) Start: 01-16-2025 End: 01-16-2025 300 mg (rounded from 322 mg = 5 mg/kg 64.4 kg), intravenous, Once, On [facility] 01/16/25 at 0900, For 1 dose, Infuse over at least 2 hours: For 250 mL total volume: 10 mL/hr x 15 min, then 20 mL/hr x 15 min, then 40 mL/hr x 15 min, then 80 mL/hr x 15 min, then 150 mL/hr x 30 min, then 250 mL/hr until infusion complete. Adjust rates respectively for other volumes. Look-alike/sound-a like medication - verify indication for use. Administer using 0.2 - 1.2 micron filter. inFLIXimab (REMICADE) 5 mg/kg = 300 mg in sodium chloride 0.9 % 250 mL IVPB (3 sources) Start: 06-05-2024 End: 06-05-2024 300 mg (rounded [...] complete. Adjust rates respectively for other volumes. Look-alike/sound-a like medication - verify indication for use. Administer using 0.2 - 1.2 micron filter. Start: 02-14-2024 End: 02-14-2024 300 mg (rounded from 308.5 m g = 5 mg/kg 61.7 kg), intravenous, Once, On Mon02/14/24 at 0915, For 1 dose, Infuse over at least 2 hours: For 250 mL total volume: 10 mL/hr x 15 min, then 20 mL/hr x 15 min, then 40 mL/hr x 15 min, then 80 mL/hr x 15 min, then 150 mL/hr x 30 min, then 250 mL/hr until infusion complete. Adjust rates respectively for other volumes. Look-alike/sound-alike medication - verify indication for use. Administer using 0.2 - 1.2 micron filter. Start: 12-20-2023 End: 12-20-2023 300 mg (rounded from 293 mg = 5 mg/kg 58.6 kg), intravenous, Once, On Mon12/20/23 at 0945, For 1 dose, Infuse over at least 2 hours: For 250 mL total volume: 10 mL/hr x 15 min, then 20 mL/hr x 15 min, then 40 mL/hr x 15 min, then 80 mL/hr x 15 min, then 150 mL/hr x 30 min, then 250 mL/hr until infusion complete. Adjust rates respectively for other volumes. Look-alike/sound-alike medication - verify indication for use. Administer using 0.2 - 1.2 micron filter. inFLIXimab (REMICADE) 5 mg/kg = 338 mg in sodium chloride 0.9 % 250 mL IVPB (1 source) Start: 04-10-2024 End: 04-10-2024 338 mg (5 mg/kg 67.6 kg), intravenous, Once, On Mon04/10/24 at 0900, For 1 dose, Infuse over at least 2 hours: For 250 mL total volume: 10 mL/hr x 15 min, then 20 mL/hr x 15 min, then 40 mL/hr x 15 min, then 80 mL/hr x 15 min, then 150 mL/hr x 30 min, then 250 mL/hr until infusion complete. Adjust rates respectively for other volumes. Look-alike/sound-alike medication - verify indication for use. Administer using 0.2 - 1.2 micron filter. inFLIXimab (REMICADE) 5 mg/kg = 351 mg in sodium chloride 0.9 % 250 mL IVPB (1 source) Start: 08-01-2024 End: 08-01-2024 351 mg (rounded from 350.5 m g = 5 mg/kg 70.1 kg), intravenous, Once, On Mag[facility] 08/01/24 at 0945, For 1 dose, Infuse over at least 2 hours: For 250 mL total volume: 10 mL/hr x 15 min, then 20 mL/hr x 15 min, then 40 mL/hr x 15 min, then 80 mL/hr x 15 min, then 150 mL/hr x 30 min, then 250 mL/hr until infusion complete. Adjust rates respectively for other volumes. Look-alike/sound-alike medication - verify indication for use. Administer using 0.2 - 1.2 micron filter. inFLIXimab (REMICADE) 5 mg/kg = 352 mg in sodium chloride 0.9 % 250 mL IVPB (1 source) Start: 11-21-2024 End: 11-21-2024 352 mg (rounded from 351.5 m g = 5 mg/kg 70.3 kg), intravenous, Once, On [facility] 11/21/24 at 0900, For 1 dose, Infuse over at least 2 hours: For 250 mL total volume: 10 mL/hr x 15 min, then 20 mL/hr x 15 min, then 40 mL/hr x 15 min, then 80 mL/hr x 15 min, then 150 mL/hr x 30 min, then 250 mL/hr until infusion complete. Adjust rates respectively for other volumes. Look-alike/sound-alike medication - verify indication for use. Administer using 0.2 - 1.2 micron filter. inFLIXimab (REMICADE) 5 mg/kg = 400 mg in sodium chloride 0.9 % 250 mL IVPB (1 source) Start: 09-26-2024 End: 09-26-2024 400 mg (rounded from 373.5 m g = 5 mg/kg 74.7 kg), intravenous, Once, On Mag[facility] 09/26/24 at 1000, For 1 dose, Infuse over at least 2 hours: For 250 mL total volume: 10 mL/hr x 15 min, then 20 mL/hr x 15 min, then 40 mL/hr x 15 min, then 80 mL/hr x 15 min, then 150 mL/hr x 30 min, then 250 mL/hr until infusion complete. Adjust rates respectively for other volumes. Look-alike/sound-alike medication - verify indication for use. Administer using 0.2 - 1.2 micron filter. inFLIXimab-axxq (AVSOLA) 5 mg/kg = 300 mg in sodium chloride 0.9 % 250 mL IVPB (2 sources) Start: 10-25-2023 End: 10-25-2023 inFLIXimab-axxq (AVSOLA) 5 m g/kg = 300 mg in sodium chloride 0.9 % 250 mL IVPB Start: 08-30-2023 End: 08-30-2023 inFLIXimab-axxq (AVSOLA) 5 m g/kg = 300 mg in sodium chloride 0.9 % 250 mL IVPB ondansetron 4 mg disintegrating oral tablet (13 sources) Serotonin-3 Receptor Antagonist Start: 10-08-2023 End: 03-19-2024 take 1 tablet by mouth every eight hours as needed for nausea ondansetron ODT (ZOFRAN ODT) 4 mg disintegrating tablet Dissolve 1 tablet (4 mg total) on tongue every 8 (eight) hours as needed for nausea for up to 10 doses. 10 tablet 10/08/2023 03/19/2024 Discontinued tiZANidine 4 mg oral tablet (14 sources) Central alpha-2 Adrenergic Agonist Start: 08-17-2021 End: 03-19-2024 take 1 tablet by mouth twice daily as needed tiZANidine (ZANAFLEX) 4 mg tablet Take 1 tablet (4 mg total) by mouth 2 (two) times a day as needed. 08/17/2021 03/19/2024 Discontinued vitamin b12 2.5 mg sublingual tablet (14 sources) Vitamin B12 End: 03-19-2024 take 1 tablet under the tongue once daily cyanocobalamin, vitamin B-12, 2,500 mcg tablet, sublingual Place 1 tablet under the tongue once daily. 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] Onset: 03-19-2024 02-20-2024 Chronic Contraceptive and procreative management (2 sources) Patient encounter status; Translations: [Encounter for surveillance of contraceptive pills] 07-10-2024 Episodic Genitourinary congenital anomalies (20 sources) Congenital hydronephrosis; Translations: [Congenital hydronephrosis] Onset: 12-03-2019 12-03-2019 Chronic Menstrual disorders (3 sources) Irregular menstruation, unspecified; Translations: [Menorrhagia] Onset: 12-11-2023 01-21-2025 Chronic Nutritional deficiencies (20 sources) Deficiency of macronutrients; Translations: [Unspecified severe protein-calorie malnutrition] Onset: 12-03-2019 Resolved: 04-14-2020 04-14-2020 Chronic Other endocrine disorders (2 sources) Polycystic ovary syndrome; Translations: [Polycystic ovarian syndrome] 01-21-2025 Chronic Other and delivery including normal (12 sources) Third trimester ; Translations: [Encounter for supervision of normal , unspecified, third trimester] 05-02-2024 Episodic Regional enteritis and ulcerative colitis (20 sources) Crohn's disease of both small and large intestine with unspecified complications; Translations: [Crohn's disease of both small and large intestine with intestinal obstruction] Onset: 12-03-2019 08-01-2024 Chronic Residual codes; unclassified (2 sources) Gestation [...] 10-08-2023 Unclassified (2 sources) Outpatient Infusion Onset: 02-14-2024 Unclassified (1 source) Maternal care for other [...] Da te Episodic/Chronic Anal and rectal conditions (20 sources) Stricture of rectum; 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] Onset: 04-14-2020 04-14-2020 Episodic Influenza (1 source) Influenza due to other identified influenza virus with other respiratory manifestations; Translations: [Influenza due to other identified influenza virus with other respiratory manifestations] Onset: 10-08-2023 Episodic Mood disorders (20 sources) Mood disorders Onset: 03-04-2021 03-04-2021 Nutritional deficiencies (8 sources) Cobalamin deficiency; Translations: [Deficiency of other specified B group vitamins] Onset: 09-26-2024 02-29-2024 Episodic Open wounds of head; neck; and trunk (20 sources) Finding of sacral region; Translations: [Unspecified open wound of lower back and pelvis without penetration into retroperitoneum, initial encounter] Onset: 10-30-2019 10-30-2019 Episodic Other complications of ; puerperium affecting management of mother (1 source) Abnormality of heart; Translations: [Anomaly of heart of fetus affecting , antepartum, single or unspecified fetus] 03-15-2024 Episodic Other complications of ; puerperium affecting management of mother (2 sources) 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 05-17-2024 Episodic Other complications of (13 sources) Poor growth affecting management; Translations: [Maternal care for other known or suspected poor growth, third trimester, not applicable or unspecified] Onset: 04-17-2024 04-17-2024 Episodic Other complications of (2 sources) ultrasound scan abnormal; Translations: [Abnormal ultrasonic finding on screening of mother] 02-20-2024 Episodic Other complications of (2 sources) Crohn's disease; Translations: [Diseases of the digestive system complicating , second trimester] 02-20-2024 Episodic Other complications of (2 sources) Disorder of ; Translations: [Maternal care for other known or suspected poor growth, unspecified trimester, not applicable or unspecified] 03-28-2024 Episodic Other complications of (1 source) Disease of the digestive system complicating , childbirth and/or the puerperium; Translations: [Diseases of the digestive system complicating , third trimester] 04-17-2024 Episodic Other complications of (6 sources) growth restriction; Translations: [Maternal care for other known or suspected poor growth, unspecified trimester, not applicable or unspecified] 05-15-2024 Episodic Other complications of (1 source) Diseases [...] trimester] Onset: 02-20-2024 Episodic Other gastrointestinal disorders (20 sources) Abdominal wall fistula; 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] Onset: 10-23-2019 10-23-2019 Episodic Other screening for suspected conditions (not mental disorders or infectious disease) (4 sources) Encounter for other screening follow-up; Translations: [Encounter for other specified screening] Onset: 02-20-2024 Episodic Other skin disorders (1 source) Skin problem Onset: 10-08-2023 Episodic Ovarian cyst (20 sources) Cyst of right ovary; Translations: [Unspecified ovarian cyst, right side] Onset: 11-11-2021 11-11-2021 Episodic Previous (1 source) Maternal care for unspecified type scar from previous delivery; Translations: [Maternal care for unspecified type scar from previous delivery] Onset: 02-20-2024 Episodic Residual codes; unclassified (2 sources) Gestation period, 26 weeks; Translations: [26 weeks gestation of ] 04-04-2024 Episodic Results Test Name Value Interpretation Reference Range Facility [facility] HEMOGLOBIN A1Con 025 Glucose [Mass/Vol] 105 mg/dL [facility] HbA1c (Bld) [Mass fraction] 5.3 % 4.5 - 6.2 % [facility] Comment on above: ADA RECOMMENDED LIMI T 4.0 - 6.0 ADA THERAPEUTIC TARGET < 7.0 ACTION SUGGESTED > 7.0 [facility] US PELVIS W/ TRANSVAGINALon 01-30-2025 [place] [address] Ultrasound Report Signed Patient: COMFORT MALDONADO MR#: [id number] : 1995 Acct:[id number] Age/Sex: 29 / F ADM Date: 01/30/25 Loc: Attending Dr: Art Horan D.O. Ordering Physician: Art Horan D.O. Date of Service: 01/30/25 Procedure(s): US pelvis w/ transvaginal Accession Number(s): [id number] cc: Sean Abraham M.D.; Art Horan D.O. [address] [address] Patient Name: COMFORT MALDONADO MRN: [id number] date: 1995 Sex: F Assigned Patient Location: US Current Patient Location: US Accession/Order Number: [id number] Exam Date: 01/30/2025 15:50 Report Date: 01/30/2025 15:51 At the request of: ART HORAN DO Procedure: US pelvis w/ transvaginal Pelvic ultrasound. Reason for exam: Menorrhagia Comparison: none Technique: Transabdominal imaging of the uterus and ovaries was performed. Transvaginal imaging of the uterus and ovaries was also obtained. Additional spectral Doppler analysis of the ovaries was also obtained. Findings: Uterus measures 7.8 x 3.2 x 5.3 cm. No fibroid. Endometrium measures 3 mm without focal abnormality. Right ovary measures 2.9 x 2.3 x 2.8 cm. Left ovary measures 2.6 x 1.5 x 2.8 cm. Normal arterial and venous Doppler waveforms. Small amount of free fluid is seen. US/US pelvis w/ transvaginal Impression: Unremarkable pelvic ultrasound. Impression dictated by: Doroteo Finley Jr., D.O. 01/30/2025 3:51 PM Dictation Location: [place] [address] Electronically authenticated by: [id number] Y Date: 01/30/2025 15:51 Dictated By: Doroteo Finley M.D. Signed By: 01/30/25 1554 DD/ 1551 TD/TT: Motor Equipment Sergeant: Cassandra RadiologyTommieogsam olson MD - 01/30/2025 [place] [address] Ultrasound Report Signed Patient: COMFORT MALDONADO MR#: [id number] : 1995 Acct:[id number] Age/Sex: 29 / F ADM Date: 01/30/25 Loc: US Attending Dr: Art Horan D.O. Ordering Physician: Art Horan D.O. Date of Service: 01/30/25 Procedure(s): US pelvis w/ transvaginal Accession Number(s): [id number] cc: Sean Abraham M.D.; Art Horan D.O. The [place] [id number] Patient Name: COMFORT MALDONADO MRN: [facility]:[id number] date: 1995 Sex: F Assigned Patient Location: Current Patient Location: Accession/Order Number: [id number] Exam Date: 01/30/2025 15:50 Report Date: 01/30/2025 15:51 At the request of: ART HORAN DO Procedure: US pelvis w/ transvaginal Pelvic ultrasound. Reason for exam: Menorrhagia Comparison: none Technique: Transabdominal imaging of the uterus and ovaries was performed. Transvaginal imaging of the uterus and ovaries was also obtained. Additional spectral Doppler analysis of the ovaries was also obtained. Findings: Uterus measures 7.8 x 3.2 x 5.3 cm. No fibroid. Endometrium measures 3 mm without focal abnormality. Right ovary measures 2.9 x 2.3 x 2.8 cm. Left ovary measures 2.6 x 1.5 x 2.8 cm. Normal arterial and venous Doppler waveforms. Small amount of free fluid is seen. US/US pelvis w/ transvaginal Impression: Unremarkable pelvic ultrasound. Impression dictated by: Doroteo Finley Jr., D.O. 01/30/2025 3:51 PM Dictation Location: [place] [address] Electronically authenticated by: [id number] Y Date: 01/30/2025 15:51 Dictated By: Doroteo Finley M.D. Signed By: 01/30/25 1554 DD/ 1551 TD/TT: Motor Equipment Sergeant: [facility] Radiology Study observation (narrative) [facility] US PELVIS W/ TRANSVAGINALOrd ered By: Radiologist Radiology on 01-30-2025 [facility] Work Phone: ALL CBC WITH AUTO DIFFon BASOPHILS ABSOLUTE AUTO 0 [facility] Basophils/100 WBC (Bld) 0.2 % 0.2 - 2.0 % [facility] Eosinophils/100 WBC (Bld) 0.6 % Low 0.9 - 7.0 % [facility] Erythrocyte distribution width (RBC) [Ratio] 13.2 % 11.0 - 15.0 % [facility] Hematocrit (Bld) [Volume fraction] 27.7 % Low 36.0 - 48.0 % [facility] Hemoglobin (Bld) [Mass/Vol] 9.3 g/dL Low 12.0 - 16.0 g/dL [facility] IMMATURE GRANULOCYTES ABS AUTO 0.08 High [facility] Immature granulocytes/100 WBC (Bld) 0.4 % 0.0 - 0.5 % [facility] Interpretation and review of laboratory results Abnormal [facility] LYMPHOCYTES ABSOLUTE AUTO 2.6 [facility] Lymphocytes/100 WBC (Bld) 14.4 % Low 20.5 - 60.0 % [facility] MCH (RBC) [Entitic mass] 31.6 pg 26.7 - 34.0 pg [facility] MCHC (RBC) [Mass/Vol] 33.6 g/dL 29.9 - 35.2 g/dL [facility] MCV (RBC) [Entitic vol] 94.2 fL 81.0 - 99.0 fL [facility] MONOCYTES ABSOLUTE AUTO 1.1 High [facility] Monocytes/100 WBC (Bld) 6.2 % 1.7 - 12.0 % [facility] NEUTROPHILS ABSOLUTE AUTO 14 High [facility] Neutrophils/100 WBC (Bld) 78.2 % High 43.0 - 75.0 % [facility] Platelet mean volume (Bld) [Entitic vol] 10.1 fL 9.5 - 13.5 fL [facility] EO # 0.1 [facility] PLT 225 [facility] RBC 2.94 Low [facility] WBC 17.9 High [facility] ALL CBC WITH AUTO DIFFon BASOPHILS ABSOLUTE AUTO 0 [facility] Basophils/100 WBC (Bld) 0.2 % 0.2 - 2.0 % [facility] Eosinophils/100 WBC (Bld) 2.9 % 0.9 - 7.0 % [facility] Erythrocyte distribution width (RBC) [Ratio] 13 % 11.0 - 15.0 % [facility] Hematocrit (Bld) [Volume fraction] 36.8 % 36.0 - 48.0 % [facility] Hemoglobin (Bld) [Mass/Vol] 12.6 g/dL 12.0 - 16.0 g/dL [facility] IMMATURE GRANULOCYTES ABS AUTO 0.06 High [facility] Immature granulocytes/100 WBC (Bld) 0.5 % 0.0 - 0.5 % [facility] Interpretation and review of laboratory results Abnormal [facility] LYMPHOCYTES ABSOLUTE AUTO 2 [facility] Lymphocytes/100 WBC (Bld) 17.9 % Low 20.5 - 60.0 % [facility] MCH (RBC) [Entitic mass] 31.4 pg 26.7 - 34.0 pg [facility] MCHC (RBC) [Mass/Vol] 34.2 g/dL 29.9 - 35.2 g/dL [facility] MCV (RBC) [Entitic vol] 91.8 fL 81.0 - 99.0 fL [facility] MONOCYTES ABSOLUTE AUTO 0.7 [facility] Monocytes/100 WBC (Bld) 5.9 % 1.7 - 12.0 % [facility] NEUTROPHILS ABSOLUTE AUTO 8.1 High [facility] Neutrophils/100 WBC (Bld) 72.6 % 43.0 - 75.0 % [facility] Platelet mean volume (Bld) [Entitic vol] 9.7 fL 9.5 - 13.5 fL [facility] TBH EO # 0.3 [facility] TB PLT 246 [facility] TB RBC 4.01 Low [facility] TB WBC 11.1 High [facility] Urinalysis macro (dipstick) panel (U)on 06-24-2024 Bilirubin, UA Negative Negative - 4(70) +++ mg/dL [facility] Blood, UA Positive Negative - 50 Kal/mcL [facility] Comment on above: large Clarity, UA Clear [facility] Color, UA Yellow [facility] Glucose, UA Negative Negative - 1999(110) ++++ mg/dL [facility] Interpretation and review of laboratory results Abnormal [facility] Ketones, UA Positive Negative - 160(16) ++++ mg/dL [facility] Comment on above: trace Leukocytes, UA Negative Negative - 500+++ Sandra/mcL [facility] Nitrite, UA Negative Negative - Positive [facility] pH, UA 6.5 5 - 9 [facility] Protein, UA Negative Negative - 1999(20) ++++ mg/dL [facility] Spec Grav, UA 1.02 1 - 1.03 [facility] Urobilinogen, UA 0.2 0.2 - 12 mg/dL [facility] Urinalysis macro (dipstick) panel (U)on 06-17-2024 Bilirubin, UA Negative Negative - 4(70) +++ mg/dL [facility] Blood, UA Positive Negative - 50 Kal/mcL [facility] Comment on above: trace-intact Clarity, UA Clear [facility] Color, UA Yellow [facility] Glucose, UA Negative Negative - 1999(110) ++++ mg/dL [facility] Interpretation and review of laboratory results Abnormal [facility] Ketones, UA Positive Negative - 160(16) ++++ mg/dL [facility] Comment on above: trace Leukocytes, UA Negative Negative - 500+++ Sandra/mcL [facility] Nitrite, UA Negative Negative - Positive [facility] pH, UA 5.5 5 - 9 [facility] Protein, UA Negative Negative - 1999(20) ++++ mg/dL [facility] Spec Grav, UA 1.01 1 - 1.03 [facility] Urobilinogen, UA 0.2 0.2 - 12 mg/dL [facility] Urinalysis macro (dipstick) panel (U)on 06-10-2024 Bilirubin, UA Negative Negative - 4(70) +++ mg/dL [facility] Blood, UA Positive Negative - 50 Kal/mcL [facility] Clarity, UA Clear [facility] Color, UA Yellow [facility] Glucose, UA Negative Negative - 1999(110) ++++ mg/dL [facility] Interpretation and review of laboratory results Abnormal [facility] Ketones, UA Negative Negative - 160(16) ++++ mg/dL [facility] Leukocytes, UA Negative Negative - 500+++ Sandra/mcL [facility] Nitrite, UA Negative Negative - Positive [facility] pH, UA 6 5 - 9 [facility] Protein, UA Negative Negative - 1999(20) ++++ mg/dL [facility] Spec Grav, UA 1.02 1 - 1.03 [facility] Urobilinogen, UA 1.0 0.2 - 12 mg/dL [facility] Urinalysis macro (dipstick) panel (U)on 06-03-2024 Bilirubin, UA Negative Negative - 4(70) +++ mg/dL [facility] Blood, UA Negative Negative - 50 Kal/mcL [facility] Clarity, UA Clear [facility] Color, UA Yellow [facility] Glucose, UA Negative Negative - 1999(110) ++++ mg/dL [facility] Interpretation and review of laboratory results Normal [facility] Ketones, UA Negative Negative - 160(16) ++++ mg/dL [facility] Leukocytes, UA Negative Negative - 500+++ Sandra/mcL [facility] Nitrite, UA Negative Negative - Positive [facility] pH, UA 5.5 5 - 9 [facility] Protein, UA Negative Negative - 2000(20) ++++ mg/dL [facility] Spec Grav, UA 1.03 1 - 1.03 [facility] Urobilinogen, UA 0.2 0.2 - 12 mg/dL [facility] Urinalysis macro (dipstick) panel (U)on 05-16-2024 Bilirubin, UA Negative Negative - 4(70) +++ mg/dL [facility] Blood, UA Positive Negative - 50 Kal/mcL [facility] Comment on above: trace-intact Clarity, UA Clear [facility] Color, UA Yellow [facility] Glucose, UA Negative Negative - 1999(110) ++++ mg/dL [facility] Interpretation and review of laboratory results Abnormal [facility] Ketones, UA Negative Negative - 160(16) ++++ mg/dL [facility] Leukocytes, UA Negative Negative - 500+++ Sandra/mcL [facility] Nitrite, UA Negative Negative - Positive [facility] pH, UA 6 5 - 9 [facility] Protein, UA Negative Negative - 1999(20) ++++ mg/dL [facility] Spec Grav, UA 1.025 1 - 1.03 [facility] Urobilinogen, UA 0.2 0.2 - 12 mg/dL [facility] No Panel Informationon 05-15 Patient Name: Kishor Maldonado Patient : 1995 NST Objective Findings: Variability: Moderate Decelerations: None Accelerations: Yes Acoustic Stimulator: No Baseline: 130 BPM Uterine Irritability: Yes Contractions: Not present Comments: Uterine irritability noted, intercourse this morning. [facility] instructions/handout and labor precautions reviewed. NST Interpretation: Nonstress Test Interpretation: Reactive (Mayco Roman MD) NST performed by: Aislinn Richardson RN 05/15/2024 4:30 PM [facility] Urinalysis macro (dipstick) panel (U)on 04-04-2024 Bilirubin, UA Negative Negative - 4(70) +++ mg/dL [facility] Blood, UA Negative Negative - 50 Kal/mcL [facility] Clarity, UA Clear [facility] Color, UA Yellow [facility] Glucose, UA Negative Negative - 1999(110) ++++ mg/dL [facility] Interpretation and review of laboratory results Normal [facility] Ketones, UA Negative Negative - 160(16) ++++ mg/dL [facility] Leukocytes, UA Negative Negative - 500+++ Sandra/mcL [facility] Nitrite, UA Negative Negative - Positive [facility] pH, UA 6.0 5 - 9 [facility] Protein, UA Negative Negative - 1999(20) ++++ mg/dL [facility] Spec Grav, UA 1.030 1 - 1.03 [facility] Urobilinogen, UA 0.2 0.2 - 12 mg/dL [facility] M. tuberculosis stim IFN-g p venkat (Bld)on 03-29-2024 Mitogen minus Nil Result 1.22 IU/mL Normal [facility] Comment on above: Performed By: #### C AGNES, 1989-11, HA1C, CBCA, 5196-1, 85562-5, 38939-9, 2132-9, 10645-7, 8014-3, 66743-9 #### [facility] ([id number]) [address] [place] [address], [address] [place] [address] Nil Result 0.02 IU/mL Normal [facility] Comment on above: Result Comment: NOTE Test Performed by: [facility] [address] [place] [address] Travel Consultant: Donnie Sanon Ph.D.; CLIA# [id number] Performed By: #### C AGNES, 1989-11, HA1C, CBCA, 5196-1, 58249-4, 02964-0, 2132-9, 35071-9, 8014-3, 73288-7 #### [facility] ([id number]) [address] [place] [address], [address] [place] [address] QuantiFERON-Tb Gold Plus Result Negative Normal Negative [facility] Comment on above: Result Comment: [...] Diagnosis of Tuberculosis in Adults and Children [Christineohkanu GOMEZ et. al. Clin. Infect. Dis. 2017;64(2):111-115]. The reference range for the 'TB1 Ag minus Nil Result' and 'TB2 Ag minus Nil Result' is an Interferon-gamma level <0.35 IU/mL. Performed By: #### C AGNES, 1989-11, HA1C, CBCA, 5196-1, 19715-0, 00432-5, 2132-9, 00794-2, 8014-3, 04493-1 #### [facility] ([id number]) [facility] [place] [id number] TB1 Ag minus Nil Result NEG 0.01 Normal [facility] Comment on above: Performed By: #### C AGNES, 1989-11, HA1C, CBCA, 5196-1, 72861-5, 12672-7, 2132-9, 47533-7, 8014-3, 71201-9 #### [facility] ([id number]) [address] [facility], [address] [address] TB2 Ag minus Nil Result NEG 0.01 Normal [facility] Comment on above: Performed By: #### C AGNES, 1989-11, HA1C, CBCA, 5196-1, 84843-2, 83040-8, 2132-9, 65745-6, 8014-3, 75483-9 #### [facility] ([id number]) [facility], [address] [address] ALL CBC WITH AUTO DIFFon BASOPHILS ABSOLUTE AUTO 0.0 [facility] Basophils/100 WBC (Bld) 0.2 % 0.2 - 2.0 % [facility] Eosinophils/100 WBC (Bld) 1.2 % 0.9 - 7.0 % [facility] Erythrocyte distribution width (RBC) [Ratio] 12.9 % 11.0 - 15.0 % [facility] Hematocrit (Bld) [Volume fraction] 35.4 % Low 36.0 - 48.0 % [facility] Hemoglobin (Bld) [Mass/Vol] 11.8 g/dL Low 12.0 - 16.0 g/dL [facility] IMMATURE GRANULOCYTES ABS AUTO 0.02 [facility] Immature granulocytes/100 WBC (Bld) 0.2 % 0.0 - 0.5 % [facility] Interpretation and review of laboratory results Abnormal [facility] LYMPHOCYTES ABSOLUTE AUTO 1.0 Low [facility] Lymphocytes/100 WBC (Bld) 10.4 % Low 20.5 - 60.0 % [facility] MCH (RBC) [Entitic mass] 31.2 pg 26.7 - 34.0 pg [facility] MCHC (RBC) [Mass/Vol] 33.3 g/dL 29.9 - 35.2 g/dL [facility] MCV (RBC) [Entitic vol] 93.7 fL 81.0 - 99.0 fL [facility] MONOCYTES ABSOLUTE AUTO 0.4 [facility] Monocytes/100 WBC (Bld) 3.5 % 1.7 - 12.0 % [facility] NEUTROPHILS ABSOLUTE AUTO 8.5 High [facility] Neutrophils/100 WBC (Bld) 84.5 % High 43.0 - 75.0 % [facility] Platelet mean volume (Bld) [Entitic vol] 9.3 fL Low 9.5 - 13.5 fL [facility] TBH EO # 0.1 [facility] TB PLT 260 [facility] RBC 3.78 Low [facility] WBC 10.0 [facility] Cardiac echo study Procedure on 03-19-2024 Addendum by Yadira Colbert MD on 03/19/2024 1:37 PM EDT Gestational age 24 weeks Normal intracardiac anatomy Left axis deviation (upper limit of normal) Recommend evaluation Procedure Info: Echocardiography Report. Image quality is good. Procedures: Echo Doppler Color Flow echo echo Doppler study Situs and Relations: There is atrial situs solitus, atrioventricular concordance (D-looped ventricles) normally related great arteries (S,D,S). There is levocardia. The heart is located in the left chest. The cardiac apex points to the left.Left axis deviation . Systemic Veins: There are normal systemic venous connections, with the superior and inferior Vena Cava returning to the right atrium. Right Atrium: The right atrium has normal size and appearance. Tricuspid Valve: The tricuspid valve appears normal. Trivial intermittent tricuspid valve regurgitation. Tricuspid valve annulus measures 7.09 mm ; Z-score -0.1 Right Ventricle: The right ventricle has a normal size, wall thickness, and systolic function. Pulmonary valve and Artery The pulmonary valve, main and branch pulmonary arteries are normal. Pulmonary valve annulus measures 4.21 mm ; Z-score of -0.02. The left pulmonary artery measures 2.91 mm; Z-score 0.16. The right pulmonary artery measures 2.68 mm; Z-score -0.49 Septal Defects: There is a patent foramen ovale (PFO). There is right -to-left shunting across the patent foramen ovale. The interventricular septum appears intact with no evidence of ventricular level shunting. Pulmonary Veins: The right upper pulmonary vein drains normally to the left atrium. The left Lower pulmonary vein drains normally to the left atrium. Left Atrium: The left atrium has normal size and appearance. Mitral Valve: The Mitral valve appears normal. Mitral valve annulus measures 6.53 mm with a Z-score of -0.25 Left Ventricle: The left ventricle has normal has normal size, wall thickness, and systolic function. Aortic Valve: The left ventricular outflow tract and aortic valve are normal. The ascending aorta measures 4.4 mm; Z-score 0.66 Aortic valve measures 3.79 mm ; Z-score 0.97 Aorta and Ductus: Normal left sided aortic arch with no coarctation or dilation. There is a left-sided patent ductus arteriosus. There is pulmonary artery to descending aorta shunt across the patent ductus arteriosus. Rhythm: Normal sinus rhythm with an average heart rate of 138 beats per minute, normal mechanical LA interval of 120 milliseconds Other: Small anterior pericardial effusion Miscellaneous: Small septal defects, minor valve abnormalities and post- development of coarctation may not be evident during cardiac examination. Summary Normal intracardiac anatomy and function Normal atrioventricular coupling with normal heart rate Normal cardiothoracic index PFO with right to left shunting PDA with right to left shunting Follow-up: Postnatally Study Details Study quality was good. A echocardiogram was performed. [facility] Radiology Study observation (narrative) [facility] - [facility] [place], [place] 03-19-2024 [facility] CBC AND AUTO DIFFon 12-11-19 24 ABSOLUTE BASOPHIL 0.0 X10E9/L Normal 0.0-0.2 [facility] Comment on above: Performed By: #### C AGNES, 1989-11, HA1C, CBCA, 5196-1, 99873-1, 18117-6, 2132-9, 53667-2, 8014-3, 22141-6 #### [facility] ([id number]) [address] [facility], [address] [place] [address] ABSOLUTE NEUTROPHIL 5.5 X10E9/L Normal 1.5-6.6 [facility] Comment on above: Performed By: #### C AGNSE, 1989-11, HA1C, CBCA, 5196-1, 36777-0, 45843-7, 2132-9, 90104-8, 8014-3, 16059-4 #### [facility] ([id number]) [address] [facility], [address] [place] [address] Basophils/100 WBC (Bld) 0.3 % Normal [facility] Comment on above: Performed By: #### C AGNES, 1989-11, HA1C, CBCA, 5196-1, 58183-8, 10470-6, 2132-9, 06669-1, 8014-3, 85160-8 #### [facility] ([id number]) [address], [address] [place] [address] Eosinophils (Bld) [#/Vol] 0.2 10*3/uL Normal 0.0-0.4 [facility] Comment on above: Performed By: #### C AGNES, 1989-11, HA1C, CBCA, 5196-1, 35370-7, 42153-3, 2132-9, 86768-9, 8014-3, 49069-4 #### [facility] ([id number]) [address], [address] [place] [address] Eosinophils/100 WBC (Bld) 2.6 % Normal [facility] Comment on above: Performed By: #### C AGNES, 1989-11, HA1C, CBCA, 5196-1, 60178-0, 91484-4, 2132-9, 21620-6, 8014-3, 45719-7 #### [facility] ([id number]) [address], [address] [place] [address] Erythrocyte distribution width (RBC) [Ratio] 13.3 % Normal 11.5-15.0 [facility] Comment on above: Performed By: #### C AGNES, 1989-11, HA1C, CBCA, 5196-1, 16883-8, 61373-7, 2132-9, 07794-3, 8014-3, 42991-0 #### [facility] ([id number]) [address], [address] [place] [address] Hematocrit (Bld) [Volume fraction] 40.5 % Normal 35-47 [facility] Comment on above: Performed By: #### C AGNES, 1989-11, HA1C, CBCA, 5196-1, 04475-6, 97805-8, 2132-9, 06765-3, 8014-3, 73894-3 #### [facility] ([id number]) [address], [address] [place] [address] Hemoglobin (Bld) [Mass/Vol] 14.2 g/dL Normal 11.7-15.5 [facility] Comment on above: Performed By: #### C AGNES, 1989-11, HA1C, CBCA, 5196-1, 06428-4, 07066-4, 2132-9, 29158-0, 8014-3, 65141-0 #### [facility] ([id number]) [address], [address] [place] [address] Lymphocytes (Bld) [#/Vol] 1.3 10*3/uL Normal 1.0-3.5 [facility] Comment on above: Performed By: #### C AGNES, 1989-11, HA1C, CBCA, 5196-1, 23714-1, 45393-7, 2132-9, 38079-9, 8014-3, 56306-3 #### [facility] ([id number]) [address], [address] [place] [address] Lymphocytes/100 WBC (Bld) 18.2 % Normal [facility] Comment on above: Performed By: #### C AGNES, 1989-11, HA1C, CBCA, 5196-1, 24857-9, 17989-0, 2131-9, 28258-3, 8014-3, 38871-2 #### [facility] ([id number]) [address], [address] [place] [address] MCH (RBC) [Entitic mass] 30.7 pg Normal 27-34 [facility] Comment on above: Performed By: #### C AGNES, 1989-11, HA1C, CBCA, 5196-1, 21997-5, 90416-3, 2131-9, 29023-5, 8014-3, 66909-1 #### [facility] ([id number]) [address], [address] [place] [address] MCHC (RBC) [Mass/Vol] 35.2 g/dL Normal 32-36 [facility] Comment on above: Performed By: #### C AGNES, 1989-11, HA1C, CBCA, 5196-1, 89124-0, 94795-8, 213-9, 02620-6, 8014-3, 63705-3 #### [facility] ([id number]) [address], [address] [place] [address] MCV (RBC) [Entitic vol] 87 fL Normal 80-100 [facility] Comment on above: Performed By: #### C AGNES, 1989-11, HA1C, CBCA, 5196-1, 53159-3, 41384-4, 2131-9, 07074-0, 8014-3, 78383-5 #### [facility] ([id number]) [address], [address] [place] [address] Monocytes (Bld) [#/Vol] 0.4 10*3/uL Normal 0-0.9 [facility] Comment on above: Performed By: #### C AGNES, 1989-11, HA1C, CBCA, 5196-1, 76762-9, 44540-0, 2131-9, 82167-7, 8014-3, 67021-2 #### [facility] ([id number]) [address], [address] [place] [address] Monocytes/100 WBC (Bld) 5.1 % Normal [facility] Comment on above: Performed By: #### C AGNES, 1989-11, HA1C, CBCA, 5196-1, 77050-3, 87414-4, 2131-9, 96018-3, 8014-3, 88273-8 #### [facility] ([id number]) [address], [address] [place] [address] Neutrophils/100 WBC (Bld) 73.8 % Normal [facility] Comment on above: Performed By: #### C AGNES, 1989-11, HA1C, CBCA, 5196-1, 14171-3, 52107-5, 2131-9, 59628-9, 8014-3, 31197-0 #### [facility] ([id number]) [address], [address] [place] [address] Platelet mean volume (Bld) [Entitic vol] 9.1 fL Normal 7-12 [facility] Comment on above: Performed By: #### C AGNES, 1989-11, HA1C, CBCA, 5196-1, 81371-4, 38933-5, 2131-9, 24153-7, 8014-3, 94779-6 #### [facility] ([id number]) [address], [address] [place] [address] Platelets (Bld) [#/Vol] 254 10*3/uL Normal 150-450 [facility] Comment on above: Performed By: #### C AGNES, 1989-11, HA1C, CBCA, 5196-1, 10400-9, 47963-8, 9, 98588-7, 8014-3, 30718-1 #### [facility] ([id number]) [address] [facility], [address] [place] [address] RBC COUNT 4.63 X10E12/L Normal 3.80-5.20 [facility] Comment on above: Performed By: #### C AGNES, 1989-11, HA1C, CBCA, 5196-1, 16651-9, 43745-4, 9, 11509-6, 8014-3, 89240-8 #### [facility] ([id number]) [address] [facility], [address] [place] [address] WBC (Bld) [#/Vol] 7.4 10*3/uL Normal 4.0-11.0 [facility] Comment on above: Performed By: #### C AGNES, 1989-11, HA1C, CBCA, 5196-1, 40133-8, 75063-7, 9, 86624-5, 8014-3, 87973-1 #### [facility] ([id number]) [address], [address] [place] [address] COMPREHENSIVE METABOLIC PANE Jesse 12-11-2023 Albumin [Mass/Vol] 4.3 g/dL Normal 3.2-5.3 [facility] Comment on above: Performed By: #### C AGNES, 1989-11, HA1C, CBCA, 5196-1, 31892-2, 05081-4, 2132-9, 52802-0, 8014-3, 92679-7 #### [facility] ([id number]) [address], [address] [place] [address] ALP [Catalytic activity/Vol] 48 U/L Normal 39-130 [facility] Comment on above: Performed By: #### C AGNES, 1989-11, HA1C, CBCA, 5196-1, 60632-8, 40419-1, 2131-9, 26321-6, 8014-3, 16341-8 #### [facility] ([id number]) [address], [address] [place] [address] ALT [Catalytic activity/Vol] 13 U/L Normal 0-31 [facility] Comment on above: Performed By: #### C AGNES, 1989-11, HA1C, CBCA, 5196-1, 59831-1, 89533-6, 2131-9, 42028-5, 8014-3, 38916-0 #### [facility] ([id number]) [address], [address] [place] [address] Anion gap [Moles/Vol] 10 mmol/L Normal 5-15 [facility] Comment on above: Performed By: #### C AGNES, 1989-11, HA1C, CBCA, 5196-1, 27223-2, 40324-6, 2131-9, 03137-4, 8014-3, 60635-2 #### [facility] ([id number]) [address], [address] [place] [address] AST [Catalytic activity/Vol] 17 U/L Normal 0-41 [facility] Comment on above: Performed By: #### C AGNES, 1989-11, HA1C, CBCA, 5196-1, 37878-6, 43703-5, 2131-9, 90643-8, 8014-3, 16561-8 #### [facility] ([id number]) [address], [address] [place] [address] Bilirubin [Mass/Vol] 0.7 mg/dL Normal 0.3-1.2 [facility] Comment on above: Performed By: #### Clyde ALARCON, 1989-11, HA1C, CBCA, 5196-1, 20326-2, 94603-0, 2132-9, 94160-8, 8014-3, 80830-4 #### [facility] ([id number]) [address], [address] [place] [address] Calcium [Mass/Vol] 9.5 mg/dL Normal 8.5-10.5 [facility] Comment on above: Performed By: #### Clyde ALARCON, 1989-11, HA1C, CBCA, 5196-1, 50506-8, 41957-7, 2131-9, 23123-9, 8014-3, 05146-6 #### [facility] ([id number]) [address], [address] [place] [address] Chloride [Moles/Vol] 104 mmol/L Normal 98-109 [facility] Comment on above: Performed By: #### Clyde ALARCON, 1989-11, HA1C, CBCA, 5196-1, 22078-2, 10381-9, 2131-9, 26805-5, 8014-3, 39267-8 #### [facility] ([id number]) [address], [address] [place] [address] CO2 [Moles/Vol] 23 mmol/L Normal 22-32 [facility] Comment on above: Performed By: #### Clyde ALARCON, 1989-11, HA1C, CBCA, 5196-1, 93616-7, 09168-8, 2131-9, 93208-0, 8014-3, 32244-9 #### [facility] ([id number]) [address], [address] [place] [address] Creatinine [Mass/Vol] 0.49 mg/dL Normal 0.40-1.00 [facility] Comment on above: Result Comment: METH OD TRACEABLE TO IDMS STANDARD Performed By: #### C AGNES, 1989-11, HA1C, CBCA, 5196-1, 09746-0, 77939-2, 2131-9, 51637-6, 8014-3, 93702-6 #### [facility] ([id number]) [address], [address] [place] [address] eGFR (CKD-EPI) NON-RACE DEPENDENT >90 Normal >59 [facility] Comment on above: Result Comment: Reported eGFR is based on the CKD-EPI 2020 equation that does not use a race coefficient. Performed By: #### C AGNES, 1989-11, HA1C, CBCA, 5196-1, 44356-8, 12062-3, 2131-9, 11344-8, 8014-3, 87147-0 #### [facility] ([id number]) [address], [address] [place] [address] Glucose [Mass/Vol] 92 mg/dL Normal 65-99 [facility] Comment on above: Performed By: #### C AGNES, 1989-11, HA1C, CBCA, 5196-1, 51439-4, 45471-0, 2131-9, 37628-5, 8014-3, 85787-8 #### [facility] ([id number]) [address], [address] [place] [address] Potassium [Moles/Vol] 4.1 mmol/L Normal 3.5-5.0 [facility] Comment on above: Performed By: #### C AGNES, 1989-11, HA1C, CBCA, 5196-1, 52963-2, 02282-9, 2131-9, 12158-6, 8014-3, 11385-4 #### [facility] ([id number]) [address], [address] [place] [address] Protein [Mass/Vol] 7.5 g/dL Normal 6.0-8.0 [facility] Comment on above: Performed By: #### C AGNES, 1989-11, HA1C, CBCA, 5196-1, 17398-1, 56430-3, 213-9, 52439-3, 8014-3, 73566-4 #### [facility] ([id number]) [address], [address] [place] [address] Sodium [Moles/Vol] 137 mmol/L Normal 134-146 [facility] Comment on above: Performed By: #### C AGNES, 1989-11, HA1C, CBCA, 5196-1, 49350-7, 20113-3, 2131-9, 59010-5, 8014-3, 27636-2 #### [facility] ([id number]) [address] [place] [address] Urea nitrogen [Mass/Vol] 6 mg/dL Normal 5-23 [facility] Comment on above: Performed By: #### C AGNES, 1989-11, HA1C, CBCA, 5196-1, 21977-9, 79496-3, 2131-9, 17998-8, 8014-3, 16555-2 #### [facility] ([id number]) [address] [place] [address] CRP [Mass/Vol]on 12-11-2023 C REACTIVE PROTEIN 0.5 mg/dL Normal 0.000-0.744 [facility] Comment on above: Performed By: #### C AGNES, 1989-11, HA1C, CBCA, 5196-1, 30614-2, 39861-6, 2131-9, 40443-2, 8014-3, 83000-6 #### [facility] ([id number]) [address], [address] [place] [address] HBV surface Ag IA Qlon 12-10 HEPATITIS B SURF AG Negative Normal NEG [facility] Comment on above: Performed By: #### C AGNES, 1989-11, HA1C, CBCA, 5196-1, 65712-3, 44235-0, 2132-9, 35804-2, 8014-3, 99904-6 #### [facility] ([id number]) [address], [address] [place] [address] HCV Ab IA Qlon 12-11-2023 ANTI HCV W/PCR REFLX Non-Reactive Normal NRCT Pr [facility] Comment on above: Result Comment: If recent infection suspected, recommend repeat testing (>2 months). Bnrizd-ng-dfugna ratio is <0.80. Performed By: #### C AGNES, 1989-11, HA1C, CBCA, 5196-1, 96922-9, 83188-9, 2-9, 92662-5, 8014-3, 99630-0 #### [facility] ([id number]) [address] [place] [address] HGB A1C (GLYCO-HGB)on 2023 Glucose [Mass/Vol] 103 mg/dL Normal [facility] Comment on above: Performed By: #### C AGNES, 1989-11, HA1C, CBCA, 5196-1, 72252-6, 52111-9, 2131-9, 44469-9, 8014-3, 07240-0 #### [facility] ([id number]) [address] [place] [address] HbA1c (Bld) [Mass fraction] 5.2 % Normal 4.4-5.6 [facility] Comment on above: Result Comment: NOTE ADA Guidelines Result HgbA1c Normal : less than 5.7 % Prediabetes : 5.7 % to 6.4 % Diabetes : > 6.4 % Use with caution in patients with abnormal hemoglobin variants as the half-life of red blood cells and in vivo glycation rates are affected. Performed By: #### C AGNES, 1989-11, HA1C, CBCA, 5196-1, 19569-8, 21289-2, 2131-9, 07883-0, 8014-3, 54100-3 #### [facility] ([id number]) [address] [place] [address], [address] [place] [address] HIV 1+2 Ab+HIV1 p24 Ag IA Ql on 12-11-2023 HIV 1 and 2 Ab/Ag Screen Non-Reactive Normal NRCT [facility] Comment on above: Result Comment: [...] #### Clyde ALARCON, 1989-11, HA1C, CBCA, 5196-1, 70166-4, 38646-8, 9, 27213-6, 8014-3, 79456-6 #### [facility] ([id number]) [address] [place] [address], [address] [place] [address] Rubella virus IgG Qn (S)on 0 12-11-2023 RUBELLA IgG 30 IU/mL Normal [facility] Comment on above: Result Comment: Interpretation-------- <8 NEGATIVE-considered Not Immune 8-9 EQUIVOCAL-consider retesting with new specimen >9 POSITIVE-considered Immune Performed By: #### Clyde ALARCON, 1989-11, HA1C, CBCA, 5196-1, 59457-9, 64901-5, 2131-9, 52330-9, 8014-3, 73725-4 #### [facility] ([id number]) [address] [place] [address], [address] [place] [address] T. pallidum IgG+IgM IA Ql (S )on 12-11-2023 Syphilis Total <0.2 Normal 0.0-0.8 [facility] Comment on above: Result Comment: NON REACTIVE No serologic evidence of infection to Treponema pallidum (syphilis). Repeat testing may be considered in patients with suspected acute or primary syphilis in 2 to 4 weeks. Performed By: #### C AGNES, 1989-11, HA1C, CBCA, 5196-1, 23918-8, 80471-7, 2132-9, 56559-6, 8014-3, 00129-7 #### [facility] ([id number]) [address] [place] [address], [address] [place] [address] VITAMIN B12on 12-11-2023 Cobalamin (Vitamin B12) [Mass/Vol] 142 pg/mL Low 180-914 [facility] Comment on above: Performed By: #### C AGNES, 1989-11, HA1C, CBCA, 5196-1, 02750-3, 07182-8, 2-9, 58871-5, 8014-3, 05994-3 #### [facility] ([id number]) [address] [place] [address], [address] [place] [address] Vitamin D+Metabolites [Mass/ Vol]on 12-11-2023 VITAMIN D 25 HYD TOT 21.8 ng/mL Low 30-100 [facility] Comment on above: Result Comment: Vitamin D status 25 [place] Vitamin D Deficiency <20 ng/mL Insufficiency 20-29 ng/mL Sufficiency 30-100 ng/mL Toxicity >100 ng/mL NOTE: A pediatric reference range has not been established by the bricklayer apprentice of this kit. The [place] [employer] recommends a Vitamin D level of = or >20ng/mL in infants and children. Performed By: #### C AGNES, 1989-11, HA1C, CBCA, 5196-1, 28326-2, 03736-6, 2132-9, 23212-5, 8014-3, 00633-6 #### [facility] ([id number]) [address], [address] [place] [address] SARS/FLU A+B/RSV by NAAT/Mol ecularon 10-08-2023 SARS/FLU [...] operators who are performing tests using either [employer] or [employer] systems and is limited to laboratories that [...] specimen repeat. Fact Sheet for Healthcare Providers: https://www.fda.gov/medi a/073326/download Fact Sheet for Patients: https://www.fda.gov/medi a/906977/download Normal [facility] Comment on above: Performed By: #### C OVFLR #### [facility] ([id number]) [address] [place] [address], [place] [address] Consultation Noteon 12-18-19 Consultation Note [id number]: 127 Normal [facility] Ambulatory Patient Education on 06-04-2018 Ambulatory Patient Education Patient Education MaterialsName: Comfort Maldonado Current Date: 06/04/2018 11:43:12 [place] 1995 following sheet(s) are the Patient Education Leaflets for Comfort Maldonado Normal [facility] Gastroenterology Office/Clin ic Noteon 06-04-2018 Gastroenterology [...] her being referred to Dr. Bowers at [facility] in [place]. She states that she had a colonoscopy [...] available. No qualifying data available.Electronically signed by ___Trang Harrison MD 06/05/18 15:52 [facility] records: Colonoscopy 04/17/2018 Crohn's disease involving the ascending colon, cecum, terminal ileum IC valve was visualized and abnormal with ulceration and stenosis Pathology report: Ileum:mild acute and chronic ileitis with tall and slender, intact intestinal villi lining the ileum Colon, ascending: active colitis with rare crypt abscesses, cryptitis and focal srchitectural distortion. Findings are consistent with CD in this settingElectronically signed by ___Trang Harrison MD 06/05/18 15:[address] [facility] Vital Signs Date Time Vital Sign Value Performing Clinician Facility 01-21-2025 11:22-0400 Body weight 65.37 kg [employer] DO Work Phone: [facility] 01-21-2025 11:22-0400 Diastolic blood pressure 72 mm[Hg] [facility] Aung DO Work Phone: [facility] 01-21-2025 11:22-0400 Systolic blood pressure 110 mm[Hg] [facility] DO Work Phone: [facility] 01-16-2025 10:17-0400 Body temperature 98.1 [degF] [address] 01-16-2025 10:17-0400 Diastolic blood pressure 72 mm[Hg] [address] 01-16-2025 10:17-0400 Heart rate 69 /min [address] 01-16-2025 10:17-0400 Respiratory rate 16 /min [address] 01-16-2025 10:17-0400 Systolic blood pressure 115 mm[Hg] [address] 01-16-2025 08:54-0400 Body mass index (BMI) [Ratio] 26.81 kg/m2 [address] 01-16-2025 08:54-0400 Body weight 64.[address] 11-21-2024 10:20-0400 Body temperature 98.01 [degF] [address] 11-21-2024 10:20-0400 Diastolic blood pressure 77 mm[Hg] [address] 11-21-2024 10:20-0400 Heart rate 80 /min Wlc 1 [facility] 11-21-2024 10:20-0400 Respiratory rate 16 /min Wlc 1 [facility] 11-21-2024 10:20-0400 Systolic blood pressure 120 mm[Hg] Wlc 1 [facility] 11-21-2024 08:56-0400 Body mass index (BMI) [Ratio] 29.27 kg/m2 Wlc 1 [facility] 11-21-2024 08:56-0400 Body weight 70.31 kg Wl 1 [facility] 09-26-2024 11:15-0500 Body height 155 cm Suresh Diaz MD Work Phone: [facility] 09-26-2024 11:15-0500 Body mass index (BMI) [Ratio] 30.97 kg/m2 Suresh Diaz MD Work Phone: [facility] 09-26-2024 11:15-0500 Body temperature 98.2 [degF] Wl 3 [facility] 09-26-2024 11:15-0500 Body weight 74.39 kg Suresh Diaz MD Work Phone: [facility] 09-26-2024 11:15-0500 Diastolic blood pressure 60 mm[Hg] Suresh Diaz MD Work Phone: [facility] 09-26-2024 11:15-0500 Diastolic blood pressure 69 mm[Hg] Wlc 3 [facility] 09-26-2024 11:15-0500 Heart rate 93 /min Suresh Diaz MD Work Phone: [facility] 09-26-2024 11:15-0500 Heart rate 70 /min Wlc 3 [facility] 09-26-2024 11:15-0500 Respiratory rate 18 /min Wlc 3 [facility] 09-26-2024 11:15-0500 Systolic blood pressure 94 mm[Hg] Suresh Diaz MD Work Phone: [facility] 09-26-2024 11:15-0500 Systolic blood pressure 99 mm[Hg] [address] 09-26-2024 09:57-0500 Body mass index (BMI) [Ratio] 31.08 kg/m2 [address] 09-26-2024 09:57-0500 Body weight 74.[address] 08-01-2024 10:58-0500 Body temperature 98.6 [degF] [address] 08-01-2024 10:58-0500 Diastolic blood pressure 80 mm[Hg] [address] 08-01-2024 10:58-0500 Heart rate 81 /min [address] 08-01-2024 10:58-0500 Respiratory rate 20 /min [address] 08-01-2024 10:58-0500 Systolic blood pressure 120 mm[Hg] [address] 08-01-2024 09:30-0500 Body mass index (BMI) [Ratio] 29.19 kg/m2 [address] 08-01-2024 09:30-0500 Body weight 70.[address] 07-10-2024 15:20-0500 Body weight 70.36 kg Sayra BROWN Work Phone: [facility] 07-10-2024 15:20-0500 Diastolic blood pressure 62 mm[Hg] Sayra BROWN Work Phone: [facility] 07-10-2024 15:20-0500 Systolic blood pressure 102 mm[Hg] Sayra BROWN Work Phone: [facility] 06-24-2024 15:02-0500 Body weight 72.12 kg Art Aung DO Work Phone: [facility] 06-24-2024 15:02-0500 Diastolic blood pressure 70 mm[Hg] Art Aung DO Work Phone: [facility] 06-24-2024 15:02-0500 Systolic blood pressure 120 mm[Hg] Art Aung DO Work Phone: [facility] 06-17-2024 14:18-0500 Body weight 73.21 kg Sayra BROWN Work Phone: [facility] 06-17-2024 14:18-0500 Diastolic blood pressure 62 mm[Hg] Sayra BROWN Work Phone: [facility] 06-17-2024 14:18-0500 Systolic blood pressure 100 mm[Hg] Sayra BROWN Work Phone: [facility] 06-11-2024 10:48-0500 Body height 155 cm Mayco Roman MD Work Phone: [facility] 06-11-2024 10:48-0500 Body mass index (BMI) [Ratio] 29.98 kg/m2 Mayco Roman MD Work Phone: [facility] 06-11-2024 10:48-0500 Body weight 72.03 kg Mayco Roman MD Work Phone: [facility] 06-11-2024 10:48-0500 Diastolic blood pressure 83 mm[Hg] Mayco Roman MD Work Phone: [facility] 06-11-2024 10:48-0500 Heart rate 105 /min Mayco Roman MD Work Phone: [facility] 06-11-2024 10:48-0500 Systolic blood pressure 118 mm[Hg] Mayco Roman MD Work Phone: [facility] 06-10-2024 08:43-0500 Body weight 72.12 kg Art Aung DO Work Phone: [facility] 06-10-2024 08:43-0500 Diastolic blood pressure 70 mm[Hg] Art Aung DO Work Phone: [facility] 06-10-2024 08:43-0500 Systolic blood pressure 110 mm[Hg] Art Aung DO Work Phone: [facility] 06-05-2024 09:00-0500 Body mass index (BMI) [Ratio] 26.55 kg/m2 Pplc 1 [facility] 06-05-2024 09:00-0500 Body temperature 98.4 [degF] Pplc 1 [facility] 06-05-2024 09:00-0500 Body weight 63.78 kg Pplc 1 [facility] 06-05-2024 09:00-0500 Diastolic blood pressure 73 mm[Hg] Pplc 1 [facility] 06-05-2024 09:00-0500 Heart rate 99 /min Pplc 1 [facility] 06-05-2024 09:00-0500 Respiratory rate 16 /min Pplc 1 [facility] 06-05-2024 09:00-0500 Systolic blood pressure 114 mm[Hg] Pplc 1 [facility] 06-03-2024 08:25-0500 Body weight 70.76 kg Art Aung DO Work Phone: [facility] 06-03-2024 08:25-0500 Diastolic blood pressure 68 mm[Hg] Art Aung DO Work Phone: [facility] 06-03-2024 08:25-0500 Systolic blood pressure 114 mm[Hg] Art Aung DO Work Phone: [facility] 05-16-2024 09:01-0400 Body weight 70.67 kg Art Aung DO Work Phone: [facility] 05-16-2024 09:01-0400 Diastolic blood pressure 64 mm[Hg] Art Aung DO Work Phone: [facility] 05-16-2024 09:01-0400 Systolic blood pressure 120 mm[Hg] Art Aung DO Work Phone: [facility] 05-15-2024 16:05-0400 Diastolic blood pressure 72 mm[Hg] Tth Nst1 [facility] 05-15-2024 16:05-0400 Heart rate 93 /min [address] 05-15-2024 16:05-0400 Systolic blood pressure 110 mm[Hg] Tt Nst1 [facility] 05-02-2024 09:35-0400 Body weight 68.58 kg Sayra BROWN Work Phone: [facility] 05-02-2024 09:35-0400 Diastolic blood pressure 68 mm[Hg] Sayra BROWN Work Phone: [facility] 05-02-2024 09:35-0400 Systolic blood pressure 110 mm[Hg] Sayra BROWN Work Phone: [facility] 04-17-2024 09:56-0400 Body mass index (BMI) [Ratio] 26.89 kg/m2 Mayco Roman MD Work Phone: [facility] 04-17-2024 09:56-0400 Body weight 64.59 kg Mayco Roman MD Work Phone: [facility] 04-17-2024 09:56-0400 Diastolic blood pressure 73 mm[Hg] Mayco Roman MD Work Phone: [facility] 04-17-2024 09:56-0400 Heart rate 104 /min Mayco Roman MD Work Phone: [facility] 04-17-2024 09:56-0400 Systolic blood pressure 112 mm[Hg] Mayco Roman MD Work Phone: [facility] 04-10-2024 11:20-0400 Body temperature 97.9 [degF] Pplc 1 [facility] 04-10-2024 11:20-0400 Diastolic blood pressure 65 mm[Hg] Pplc 1 [facility] 04-10-2024 11:20-0400 Heart rate 77 /min Pplc 1 [facility] 04-10-2024 11:20-0400 Systolic blood pressure 110 mm[Hg] Pplc 1 [facility] 04-10-2024 08:54-0400 Body mass index (BMI) [Ratio] 28.13 kg/m2 Pplc 1 [facility] 04-10-2024 08:54-0400 Body weight 67.59 kg Pplc 1 [facility] 04-10-2024 08:54-0400 Respiratory rate 18 /min Pplc 1 [facility] 04-04-2024 10:51-0400 Body weight 65.55 kg Art Aung DO Work Phone: [facility] 04-04-2024 10:51-0400 Diastolic blood pressure 64 mm[Hg] Art Aung DO Work Phone: [facility] 04-04-2024 10:51-0400 Systolic blood pressure 104 mm[Hg] Art Aung DO Work Phone: [facility] 03-19-2024 10:48-0400 Body height 155 cm Yadira Chau MD Work Phone: [facility] 03-19-2024 10:48-0400 Body mass index (BMI) [Ratio] 27.3 kg/m2 Yadira Chau MD Work Phone: [facility] 03-19-2024 10:48-0400 Body weight 65.59 kg Yadira Chau MD Work Phone: [facility] 03-19-2024 10:48-0400 Diastolic blood pressure 81 mm[Hg] Yadira Chau MD Work Phone: [facility] 03-19-2024 10:48-0400 Heart rate 101 /min Yadira Chau MD Work Phone: [facility] 03-19-2024 10:48-0400 SaO2% (BldA) [Mass fraction] 100 % Yadira Chau MD Work Phone: [facility] 03-19-2024 10:48-0400 Systolic blood pressure 118 mm[Hg] Yadira Chau MD Work Phone: [facility] 02-29-2024 08:31-0400 Body height 154.9 cm Suresh Diaz MD Work Phone: [facility] 02-29-2024 08:31-0400 Body mass index (BMI) [Ratio] 26.26 kg/m2 Suresh Diaz MD Work Phone: [facility] 02-29-2024 08:31-0400 Body weight 63.05 kg Suresh Diaz MD Work Phone: [facility] 02-29-2024 08:31-0400 Diastolic blood pressure 70 mm[Hg] Suresh Diaz MD Work Phone: [facility] 02-29-2024 08:31-0400 Systolic blood pressure 110 mm[Hg] Suresh Diaz MD Work Phone: [facility] 02-20-2024 09:23-0400 Body mass index (BMI) [Ratio] 25.74 kg/m2 Mayco Roman MD Work Phone: [facility] 02-20-2024 09:23-0400 Body weight 61.8 kg Mayco Roman MD Work Phone: [facility] 02-20-2024 09:23-0400 Diastolic blood pressure 63 mm[Hg] Mayco Roman MD Work Phone: [facility] 02-20-2024 09:23-0400 Heart rate 92 /min Mayco Roman MD Work Phone: [facility] 02-20-2024 09:23-0400 Systolic blood pressure 106 mm[Hg] Mayco Roman MD Work Phone: [facility] 02-14-2024 11:30-0400 Body temperature 98.29 [degF] Pplc 1 [facility] 02-14-2024 11:30-0400 Diastolic blood pressure 70 mm[Hg] Pplc 1 [facility] 02-14-2024 11:30-0400 Heart rate 76 /min Pplc 1 [facility] 02-14-2024 11:30-0400 Respiratory rate 16 /min Pplc 1 [facility] 02-14-2024 11:30-0400 Systolic blood pressure 105 mm[Hg] Pplc 1 [facility] 02-14-2024 09:03-0400 Body mass index (BMI) [Ratio] 25.7 kg/m2 Pplc 1 [facility] 02-14-2024 09:03-0400 Body weight 61.69 kg Pplc 1 [facility] 12-20-2023 11:35-0400 Body temperature 99.61 [degF] [facility] 2 [facility] 12-20-2023 11:35-0400 Diastolic blood pressure 70 mm[Hg] [facility] 2 [facility] 12-20-2023 11:35-0400 Heart rate 96 /min [facility] 2 [facility] 12-20-2023 11:35-0400 Respiratory rate 18 /min [facility] 2 [facility] 12-20-2023 11:35-0400 Systolic blood pressure 107 mm[Hg] [facility] 2 [facility] 12-20-2023 09:18-0400 Body mass index (BMI) [Ratio] 24.41 kg/m2 [facility] 2 [facility] 12-20-2023 09:18-0400 Body weight 58.6 kg [facility] 2 [facility] 11-30-2023 09:43-0400 Body height 154.9 cm Suresh Diaz MD Work Phone: [facility] 11-30-2023 09:43-0400 Body mass index (BMI) [Ratio] 24.75 kg/m2 Suresh Diaz MD Work Phone: [facility] 11-30-2023 09:43-0400 Body weight 59.42 kg Suresh Diaz MD Work Phone: [facility] 11-30-2023 09:43-0400 Diastolic blood pressure 80 mm[Hg] Suresh Diaz MD Work Phone: [facility] 11-30-2023 09:43-0400 Systolic blood pressure 120 mm[Hg] Suresh Diaz MD Work Phone: [facility] 10-25-2023 11:28-0400 Body temperature 99.1 [degF] [facility] 10-25-2023 11:28-0400 Diastolic blood pressure 62 mm[Hg] [facility] 2 [facility] 10-25-2023 11:28-0400 Heart rate 74 /min [facility] 2 [facility] 10-25-2023 11:28-0400 Respiratory rate 18 /min [facility] 2 [facility] 10-25-2023 11:28-0400 Systolic blood pressure 97 mm[Hg] [facility] 2 [facility] 10-25-2023 08:54-0400 Body mass index (BMI) [Ratio] 25.32 kg/m2 [facility] 2 [facility] 10-25-2023 08:54-0400 Body weight 60.78 kg [facility] 2 [facility] 08-30-2023 11:44-0500 Body temperature 98.2 [degF] [facility] 1 [facility] 08-30-2023 11:44-0500 Diastolic blood pressure 68 mm[Hg] [facility] 1 [facility] 08-30-2023 11:44-0500 Heart rate 73 /min [facility] 1 [facility] 08-30-2023 11:44-0500 SaO2% (BldA) [Mass fraction] 98 % [facility] 1 [facility] 08-30-2023 11:44-0500 Systolic blood pressure 99 mm[Hg] [facility] 1 [facility] 08-30-2023 09:00-0500 Body mass index (BMI) [Ratio] 26.38 kg/m2 [facility] 1 [facility] 08-30-2023 09:00-0500 Body weight 63.32 kg [facility] 1 [facility] Encounters Encounter Date Encounter Type Care Provider Facility Start: 02-10-2025 End: 02-10-2025 [employer] flowsheet [employer] DO Work Phone: [facility] Start: 02-10-2025 End: 02-10-2025 Bamboo flowsheet Art Aung DO Work Phone: [facility] Start: 01-30-2025 End: 01-30-2025 Clinisync Result Encounter Art Aung DO Work Phone: [facility] External Department Unsolicited Start: 01-30-2025 End: 01-30-2025 Clinisync Result Encounter Art Aung DO Work Phone: [facility] External Department Unsolicited Start: 01-21-2025 End: 01-21-2025 Bamboo flowsheet Art Aung DO Work Phone: [facility] Start: 01-21-2025 End: 01-21-2025 Bamboo flowsheet Art Aung DO Work Phone: [facility] Start: 01-21-2025 End: 01-21-2025 Office outpatient visit 15 minutes Art Aung DO Work Phone: [facility] Comment on above: Menorrhagia with reg ular cycle; PCOS (polycystic ovarian syndrome) Start: 01-21-2025 End: 01-21-2025 ambulatory ART AUNG Not Available Start: 01-16-2025 End: 01-16-2025 ambulatory [facility] Infusion Chair 3 [facility] Comment on above: Crohn's disease of s mall and large intestines with complication (CMS-HCC) (Primary Dx) Start: 11-21-2024 End: 11-21-2024 ambulatory [facility] Infusion Chair 1 [facility] Comment on above: Crohn's disease of s mall and large intestines with complication (CMS-HCC) (Primary Dx) Start: 09-26-2024 End: 10-09-2024 Telephone encounter Adelaida Timmons RN [facility] Start: 09-26-2024 End: 09-26-2024 Office outpatient visit 15 minutes Suresh Diaz MD Work Phone: [facility] Comment on above: Crohn's disease of b oth small and large intestine with intestinal obstruction (CMS-HCC) (Primary Dx); Rectal stricture; B12 deficiency; Vitamin D deficiency Start: 09-26-2024 End: 09-26-2024 ambulatory [facility] Infusion Chair 3 [facility] Comment on above: Crohn's disease of s mall and large intestines with complication (CMS-HCC) (Primary Dx) Start: 08-01-2024 End: 08-01-2024 ambulatory [facility] Infusion Chair 3 [facility] Comment on above: Crohn's disease of s mall and large intestines with complication (CMS-HCC) (Primary Dx) Start: 07-10-2024 End: 07-10-2024 care visit Sayra BROWN Work Phone: [facility] Comment on above: Encounter for repeat prescription of oral contraceptives (Primary Dx); S/P Start: 07-10-2024 End: 07-10-2024 ambulatory SAYRA ANDREWS Not Available Start: 07-10-2024 End: 07-10-2024 Bamboo flowsheet Sayra BROWN Work Phone: [facility] Start: 07-10-2024 End: 07-10-2024 Bamboo flowsheet Sayra BROWN Work Phone: [facility] Start: 07-03-2024 End: 07-03-2024 Clinisync Result Encounter Art Aung DO Work Phone: [facility] Unsolicited Start: 07-03-2024 End: 07-03-2024 Clinisync Result Encounter Art Aung DO Work Phone: [facility] Unsolicited Start: 07-02-2024 End: 07-02-2024 Clinisync Result Encounter Art Aung DO Work Phone: [facility] Unsolicited Start: 07-02-2024 End: 07-02-2024 Clinisync Result Encounter Art Aung DO Work Phone: [facility] Unsolicited Start: 07-02-2024 End: 07-02-2024 ambulatory Sean Abraham Facility:[facility] Start: 06-24-2024 End: 06-24-2024 Office outpatient visit 15 minutes Art Aung DO Work Phone: [facility] Comment on above: 37 weeks gestation o f ; Third trimester Start: 06-24-2024 End: 06-24-2024 ambulatory ART AUNG Not Available Start: 06-24-2024 End: 06-24-2024 Bamboo flowsheet Art Aung DO Work Phone: [facility] Start: 06-24-2024 End: 06-24-2024 Bamboo flowsheet Art Aung DO Work Phone: [facility] [...] End: 06-11-2024 Office outpatient visit 15 minutes Mayco Roman MD Work Phone: [facility] Comment on above: Crohn's disease of b oth small and large intestine with intestinal obstruction (CMS-HCC) (Primary Dx) Start: 06-11-2024 End: 06-11-2024 ambulatory ART R [facility] Start: 06-10-2024 End: 06-10-2024 Bamboo flowsheet Art Aung DO Work Phone: [facility] Start: 06-10-2024 End: 06-10-2024 Bamboo flowsheet Art Aung DO Work Phone: [facility] Start: 06-10-2024 End: 06-10-2024 Office outpatient visit 15 minutes Art Aung DO Work Phone: [facility] Comment on above: Third trimester preg delfina; 35 weeks gestation of ; Herpes Start: 06-10-2024 End: 06-10-2024 ambulatory ART AUNG Not Available Start: 06-05-2024 End: 06-05-2024 ambulatory SEAN ABRAHAM [facility] Comment on above: Crohn's disease of s mall and large intestines with complication (CMS-HCC) (Primary Dx) Start: 06-03-2024 End: 06-03-2024 Bamboo flowsheet Art Aung DO Work Phone: [facility] Start: 06-03-2024 End: 06-03-2024 Bamboo flowsheet Art Aung DO Work Phone: [facility] Start: 06-03-2024 End: 06-03-2024 Office outpatient visit 15 minutes Art Aung DO Work Phone: [facility] Comment on above: Third trimester preg delfina; 34 weeks gestation of Start: 06-03-2024 End: 06-03-2024 ambulatory ART AUNG Not Available Start: 05-30-2024 End: 05-30-2024 ambulatory ART R [facility] Start: 05-17-2024 End: 05-17-2024 Orders Only Akila Snider RN [facility] Comment on above: growth restric tion antepartum (Primary Dx); Crohn's disease of both small and large intestine with intestinal obstruction ([facility]-HCC); 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 Start: 05-16-2024 End: 05-16-2024 Bamboo flowsheet Art Aung DO Work Phone: [facility] Start: 05-16-2024 End: 05-16-2024 Bamboo flowsheet Art Aung DO Work Phone: [facility] Start: 05-16-2024 End: 05-16-2024 Office outpatient visit 15 minutes Art Aung DO Work Phone: [facility] Comment on above: 32 weeks gestation o f ; Third trimester Start: 05-16-2024 End: 05-16-2024 ambulatory ART AUNG Not Available Start: 05-15-2024 End: 05-15-2024 Orders Only Jenni Owen CMA [facility] Comment on above: growth restric tion antepartum (Primary Dx) Crohn's disease of b oth small and large intestine with intestinal obstruction (CMS-HCC) (Primary Dx); growth restriction antepartum Start: 05-02-2024 End: 05-02-2024 Bamboo flowsheet Sayra BROWN Work Phone: [facility] Start: 05-02-2024 End: 05-02-2024 Bamboo flowsheet Sayra BROWN Work Phone: [facility] Start: 05-02-2024 End: 05-02-2024 Office outpatient visit 15 minutes Sayra BROWN Work Phone: [facility] Comment on above: 30 weeks gestation o f (Primary Dx); Third trimester Start: 05-02-2024 End: 05-02-2024 ambulatory SAYRA ANDREWS Not Available Start: 04-30-2024 End: 04-30-2024 ambulatory ART R [facility] Start: 04-17-2024 End: 04-17-2024 Office outpatient visit 15 minutes Mayco Roman MD Work Phone: [facility] Comment on above: Crohn's disease of b oth small and large intestine with intestinal obstruction (CMS-HCC) (Primary Dx) Start: 04-17-2024 End: 04-17-2024 Orders Only Aleena Goddard RN [facility] Comment on above: Maternal Crohn's dis ease affecting in third trimester (CMS-HCC) (Primary Dx); 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; affected by growth restriction; Abnormal ultrasound Start: 04-10-2024 End: 04-10-2024 ambulatory SEAN ABRAHAM [facility] Comment on above: Crohn's disease of s mall and large intestines with complication (CMS-HCC) (Primary Dx) Start: 04-04-2024 End: 04-04-2024 Bamboo flowsheet Art Aung DO Work Phone: [facility] Start: 04-04-2024 End: 04-04-2024 Bamboo flowsheet Art Aung DO Work Phone: [facility] Start: 04-04-2024 End: 04-04-2024 Office outpatient visit 15 minutes Art Aung DO Work Phone: [facility] Comment on above: 26 weeks gestation o f Start: 04-04-2024 End: 04-04-2024 ambulatory ART AUNG Not Available Start: 04-02-2024 End: 04-02-2024 ambulatory ART R [facility] Start: 03-29-2024 End: 03-29-2024 ambulatory SEAN ABRAHAM [facility] Start: 03-28-2024 End: 03-28-2024 Office outpatient visit 25 minutes Mayco Roman MD Work Phone: [facility] Comment on above: Crohn's disease of s mall and large intestines with complication (CMS-HCC) (Primary Dx) Start: 03-28-2024 End: 03-28-2024 Orders Only Juliet Valdez RN [facility] Comment on above: Maternal Crohn's dis ease affecting in second trimester (CMS-HCC) (Primary Dx); affected by growth restriction Start: 03-27-2024 End: 03-27-2024 Clinisync Result Encounter Art Aung DO Work Phone: [facility] Unsolicited Start: 03-27-2024 End: 03-27-2024 Clinisync Result Encounter Art Aung DO Work Phone: [facility] Unsolicited Start: 03-19-2024 End: 03-19-2024 ambulatory YADIRA CHAU [facility] Start: 03-19-2024 End: 03-19-2024 Office consultation new/estab patient 80 min Yadira Chau MD Work Phone: [facility] Comment on above: Anomaly of heart of fetus affecting , antepartum, single or unspecified fetus (Primary Dx); 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 Start: 03-05-2024 End: 03-05-2024 ambulatory SAYRA ANDREWS Not Available Start: 02-29-2024 End: 02-29-2024 Office outpatient visit 25 minutes Suresh Diaz MD Work Phone: [facility] Comment on above: Crohn's disease of b oth small and large intestine with intestinal obstruction (CMS-HCC) (Primary Dx); Vitamin D deficiency; B12 deficiency Start: 02-29-2024 End: 02-29-2024 ambulatory SURESH DIAZ [facility] Start: 02-20-2024 End: 02-20-2024 Office consultation new/estab patient 60 min Mayco Roman MD Work Phone: [facility] Comment on above: Deviation of long ax is of heart 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 (Primary Dx); Crohn's disease of both small and large intestine with intestinal obstruction (CMS-HCC); Rectal stricture Start: 02-20-2024 End: 02-20-2024 Orders Only Juliet Valdez RN [facility] Comment on above: Abnormal ultra sound (Primary Dx); Maternal Crohn's disease affecting in second trimester (CMS-HCC) Start: 02-14-2024 End: 02-14-2024 ambulatory SEAN ABRAHAM [facility] Comment on above: Crohn's disease of s mall and large intestines with complication (CMS-HCC) (Primary Dx) Start: 02-06-2024 End: 02-06-2024 ambulatory ART HORAN Not Available Start: 01-16-2024 End: 01-16-2024 Chart abstracting Mayco Roman MD Work Phone: [facility] Start: 12-20-2023 End: 12-20-2023 ambulatory [facility] Chair 2 [facility] Comment on above: Crohn's disease of s mall and large intestines with complication (CMS-HCC) (Primary Dx) Start: 12-12-2023 End: 12-18-2023 Telephone encounter Suresh Diaz MD Work Phone: [facility] Start: 12-11-2023 End: 12-11-2023 ambulatory [facility] Start: 11-30-2023 End: 11-30-2023 Office outpatient visit 25 minutes Suresh Diaz MD Work Phone: [facility] Comment on above: Crohn's disease of b oth small and large intestine with intestinal obstruction (CMS-HCC) (Primary Dx); Rectal stricture Start: 10-25-2023 End: 10-25-2023 ambulatory [facility] Infusion Chair 2 [facility] Comment on above: Crohn's disease of s mall and large intestines with complication (CMS-HCC) (Primary Dx) Start: 10-24-2023 Telephone encounter Amanda [facility] Start: 10-08-2023 End: 10-08-2023 Emergency department patient visit SEAN ABRAHAM [facility] Start: 08-30-2023 End: 08-30-2023 ambulatory [facility] 1 [facility] Comment on above: Crohn's disease of s mall and large intestines with complication (CMS-HCC) (Primary Dx) Start: 09-17-2019 End: 09-18-2019 Patient encounter procedure SEAN ABRAHAM Facility:[facility] Start: 06-04-2018 End: 06-05-2018 Patient encounter procedure Trang Harrison Facility:[facility] Procedures Date Procedure Procedure Detail Performing Clinician Start: 01-30-2025 US PELVIS W/ TRANSVAGINAL Art Horan DO Work Phone: Start: 01-30-2025 MLR HEMOGLOBIN A1C Core y Aung DO Work Phone: Start: 07-10-2024 H/O: section S/P Sayra BROWN Work Phone: Start: 07-03-2024 ALL CBC WITH AUTO DIFF Art Aung DO Work Phone: Start: 07-02-2024 ALL CBC WITH AUTO DIFF Art Aung DO Work Phone: Start: 06-24-2024 Urnls dip stick/tabl et rgnt non-auto w/o micrscp Art Aung DO Work Phone: Start: 06-17-2024 Urnls dip stick/tabl et rgnt non-auto w/o micrscp Sayra BROWN Work Phone: Start: 06-10-2024 Urnls dip stick/tabl et rgnt non-auto w/o micrscp Art Aung DO Work Phone: Start: 06-03-2024 Urnls dip stick/tabl et rgnt non-auto w/o micrscp Art Aung DO Work Phone: Start: 05-16-2024 Urnls dip stick/tabl et rgnt non-auto w/o micrscp Art Aung DO Work Phone: Start: 05-15-2024 nonstress test Tayler Roman MD Work Phone: Start: 04-04-2024 Urnls dip stick/tabl et rgnt non-auto w/o micrscp Art Aung DO Work Phone: Start: 03-27-2024 ALL CBC WITH AUTO DIFF Art Aung DO Work Phone: Start: 03-19-2024 AMB REFERRAL TO [facility] Mayco Roman MD Work Phone: Start: 02-29-2024 Follow-up visit Follow-up SURESH DIAZ Start: 02-06-2024 Microscopic observat ion [Identifier] in Cervix by Cyto stain Pp 1 Start: 11-11-2021 Microscopic observat ion [Identifier] in Cervix by Cyto stain [facility] 1 Start: 03-04-2021 Adult depression scr eening assessment [facility] 1 Start: 04-14-2020 H/O: colostomy Colostomy status [facility] 1 Start: 12-03-2019 H/O: ileostomy Ileostomy status [facility] 1 Plan of Treatment Date Care Activity Detail Author Start: 02-05-2027 [facility] Start: 01-16-2026 Adult BMI Screening Adult BMI Screen ing [employer] Start: 11-21-2025 Adult BMI Screening [facility] Start: 09-26-2025 Adult BMI Screening [facility] Start: 09-26-2025 Tobacco Screening Tobacco [facility] Start: 08-01-2025 Adult BMI Screening Adult BMI Screen ing [facility] Start: 08-01-2025 Tobacco Screening Tobacco Screening [facility] Start: 06-11-2025 Adult BMI Screening [facility] Start: 06-11-2025 Tobacco Screening [facility] Start: 06-05-2025 Adult BMI Screening [facility] Screen [facility] Start: 05-17-2025 End: 05-17-2025 US MFM with or without consult US MFM with or without consult Imaging Routine growth restriction antepartum Crohn's disease of both small and large intestine with intestinal obstruction (CMS-HCC) 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 Expected: 05/17/2025 (Approximate), Expires: 05/17/2025 [employer] Phone: Comment on above: Expected: 05/17/2025 (Approximate), Expires: 05/17/2025 Start: 05-15-2025 Tobacco Screening [facility] Start: 04-17-2025 Adult BMI Screening Adult BMI Screen ing [employer] Start: 04-17-2025 Tobacco Screening [facility] Start: 04-17-2025 End: 04-17-2025 US MFM with or without consult US MFM with or without consult Imaging Routine Maternal Crohn's disease affecting in third trimester ([facility]-HCC) 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 affected by growth restriction Abnormal ultrasound Expected: 04/17/2025 (Approximate), Expires: 04/17/2025 [employer] Work Phone: Comment on above: Expected: 04/17/2025 (Approximate), Expires: 04/17/2025 Start: 04-10-2025 Adult BMI Screening Adult BMI Screen ing [facility] Start: 03-31-2025 Influenza vaccination [facility] Start: 03-28-2025 End: 03-28-2025 US MFM with or without consult US MFM with or without consult Imaging Routine Maternal Crohn's disease affecting in second trimester ([facility]-HCC) affected by growth restriction Expected: 03/28/2025 (Approximate), Expires: 03/28/2025 [employer] Work Phone: Comment on above: Expected: 03/28/2025 (Approximate), Expires: 03/28/2025 Start: 03-19-2025 Adult BMI Screening Adult BMI Screen ing [facility] Start: 03-19-2025 Tobacco Screening Tobacco Screening [facility] Start: 03-14-2025 End: 03-14-2025 ambulatory 03/14/2025 9:00 AM EDT [facility] [address] [phone] [facility] Start: 02-28-2025 Adult BMI Screening Adult BMI Screen ing [facility] Start: 02-28-2025 Tobacco Screening Tobacco Screening [facility] Start: 02-19-2025 Adult BMI Screening Adult BMI Screen ing [facility] Start: 02-19-2025 Tobacco Screening Tobacco Screening [facility] Start: 02-19-2025 End: 02-19-2025 US MFM with or without consult US MFM with or without consult Imaging Routine Abnormal ultrasound Maternal Crohn's disease affecting in second trimester ([facility]-HCC) Expected: 02/19/2025 (Approximate), Expires: 02/19/2025 [facility] Work Phone: Comment on above: Expected: 02/19/2025 (Approximate), Expires: 02/19/2025 Start: 02-13-2025 Adult BMI Screening Adult BMI Screen [facility] Start: 02-10-2025 End: 02-10-2025 Patient encounter procedure 02/10/2025 3:00 PM EDT Office Visit [facility] [address] [place] [phone] Art Horan, DO [address] [place] [address] [facility] Start: 01-21-2025 End: 01-21-2026 DHEA DHEA Lab Routine Menorrhagia with regular cycle PCOS (polycystic ovarian syndrome) Expected: 01/21/2025 (Approximate), Expires: 01/21/2026 [facility] Comment on above: Expected: 01/21/2025 (Approximate), Expires: 01/21/2026 Start: 01-21-2025 End: 01-21-2026 US Pelvis US Pelvis w/ TV Imaging Routine Menorrhagia with regular cycle PCOS (polycystic ovarian syndrome) Expected: 01/21/2025, Expires: 01/21/2026 [facility] Comment on above: Expected: 01/21/2025 , Expires: 01/21/2026 Start: 01-21-2025 End: 01-21-2025 Patient encounter procedure 01/21/2025 11:00 AM EDT Office Visit [facility] [address] [place] [phone] Art Horan, DO [address] [place] [address] Arrived [facility] Comment on above: Arrived Start: 01-16-2025 End: 01-16-2025 ambulatory 01/16/2025 9:00 AM EDT [facility] [address] [phone] [facility] Start: 12-24-2024 End: 09-26-2025 C-reactive protein C-reactive protein Lab Routine Crohn's disease of both small and large intestine with intestinal obstruction (CMS-HCC) Expected: 12/24/2024 (Approximate), Expires: 09/26/2025 [facility] Comment on above: Expected: 12/24/2024 (Approximate), Expires: 09/26/2025 Start: 12-24-2024 End: 09-26-2025 Cyanocobalamin vitamin b-12 Vitamin B12 Lab Routine Crohn's disease of both small and large intestine with intestinal obstruction (CMS-HCC) B12 deficiency Expected: 12/24/2024 (Approximate), Expires: 09/26/2025 [employer] Work Phone: Comment on above: Expected: 12/24/2024 (Approximate), Expires: 09/26/2025 Start: 12-24-2024 End: 09-26-2025 Vitamin D 25 hydroxy Vitamin D 25 hydroxy Lab Routine Crohn's disease of both small and large intestine with intestinal obstruction (CMS-HCC) Vitamin D deficiency Expected: 12/24/2024 (Approximate), Expires: 09/26/2025 [facility] Comment on above: Expected: 12/24/2024 (Approximate), Expires: 09/26/2025 Start: 12-19-2024 Adult BMI Screening Adult BMI Screen ing [facility] Start: 11-29-2024 Adult BMI Screening Adult BMI Screen ing [facility] Start: 11-29-2024 Tobacco Screening Tobacco Screening [facility] Start: 11-21-2024 End: 11-21-2024 ambulatory [facility] Start: 11-11-2024 Screening for malign ant neoplasm of cervix Pap Smear [facility] Start: 10-24-2024 Adult BMI Screening Adult BMI Screen ing [facility] Start: 10-07-2024 Tobacco Screening Tobacco Screening [facility] Start: 09-26-2024 End: 09-26-2024 ambulatory 09/26/2024 10:00 AM EST Infusion [facility] [address] [place] [address] [place] [phone] [facility] Start: 08-30-2024 Adult BMI Screening Adult BMI Screen [facility] Start: 08-12-2024 End: 08-12-2024 Patient encounter procedure 08/12/2024 8:30 AM EST Office Visit [facility] [address] [place] [address] Suresh Diaz MD [address], [address] [place] [address] [facility] Start: 08-01-2024 End: 08-01-2024 ambulatory 08/01/2024 9:30 AM EST Infusion [facility] [address] [place] [address] [facility] Start: 07-10-2024 End: 07-10-2024 Patient encounter procedure 07/10/2024 2:10 PM EST Office Visit [facility] [address] [place] [phone] Sayra Andrews PA [address] [place], [place] [id number] Arrived [facility] Comment on above: Arrived Start: 07-01-2024 End: 07-01-2024 Patient encounter procedure 07/01/2024 1:50 PM EST Routine [facility] [address] [place] [phone] Sayra Andrews PA [address] [place], [place] [phone] [facility] Start: 06-24-2024 End: 06-24-2024 Patient encounter procedure [facility] Comment on above: Arrived Start: 06-17-2024 End: 06-17-2024 Patient encounter procedure 06/17/2024 1:50 PM EST Routine [facility] [address] [place] [phone] Sayra Andrews PA [address] [place] [address] [facility] Start: 06-11-2024 End: 06-11-2024 Patient encounter [facility] Start: 06-10-2024 End: 06-10-2025 Strep B [...] Infusion [facility] [address] [phone] [facility] Start: 06-03-2024 End: 06-03-2024 Patient encounter procedure [facility] Comment on above: Arrived Start: 05-30-2024 End: 05-30-2024 Patient encounter procedure 05/30/2024 3:00 PM EDT Appointment [facility] [address] [place] [address] [facility] Start: 05-16-2024 End: 05-16-2024 Patient encounter procedure [facility] Comment on above: Arrived Start: 05-15-2024 End: 05-15-2024 Patient encounter procedure 05/15/2024 2:30 PM EDT Appointment [facility] [address] [place] [phone] [facility] Start: 05-10-2024 Tobacco Screening Tobacco Screening [facility] Start: 05-02-2024 End: 05-02-2024 Patient encounter procedure [facility] Comment on above: Arrived Start: 04-30-2024 End: 04-30-2024 Patient encounter procedure 04/30/2024 9:00 AM EDT Appointment [facility] [address] [place] [address] [facility] Start: 04-17-2024 End: 04-17-2024 Patient encounter procedure 04/17/2024 11:30 AM EDT Office Visit [facility] [address] [place] [address] Mayco Roman MD [address] [place] [address] [facility] Start: 04-17-2024 End: 04-17-2024 Patient encounter procedure 04/17/2024 9:45 AM EDT Appointment [facility] [address] [place] [address] [facility] Start: 04-17-2024 Subsequent hospital visit by physician 04/17/2024 9:45 AM EDT Hospital Encounter [facility] [address] [place] [address] [facility] Start: 04-10-2024 End: 04-10-2024 ambulatory 04/10/2024 9:00 AM EDT Infusion [facility] [address] [phone] [facility] Start: 04-04-2024 End: 04-04-2024 Patient encounter procedure 04/04/2024 10:10 AM EDT Routine [facility] [address] [facility] [place] [phone] Art Horan DO [address] [place] [address] [facility] Start: 04-02-2024 End: 04-02-2024 Patient encounter procedure 04/02/2024 1:45 PM EDT [facility] [address] [facility] [place] [phone] [facility] Start: 03-31-2024 Influenza vaccination Influenza Vacc ine [facility] Start: 03-29-2024 End: 03-29-2024 Patient encounter procedure 03/29/2024 9:00 AM EDT Appointment [facility] [address] [place] [address] [facility] Start: 03-28-2024 End: 03-28-2024 Patient encounter procedure 03/28/2024 9:45 AM EDT Office Visit [facility] [address] [place] [phone] Mayco Roman MD [address], [address] [place] [address] [facility] Start: 03-28-2024 End: 03-28-2024 Patient encounter procedure 03/28/2024 8:30 AM EDT Appointment [facility] [address] [place] [phone] [facility] Start: 03-19-2024 End: 03-19-2024 Patient encounter procedure 03/19/2024 10:30 AM EDT Office Visit [facility] [address] [place] [address] Yadira Chau MD [address] [facility] [address] [place] [address] [facility] Start: 02-29-2024 End: 02-29-2024 Patient encounter procedure 02/29/2024 8:30 AM EDT Office Visit [facility] [address] [place] [phone] Suresh Diaz MD [address] [facility] [address] [place] [address] [facility] Start: 02-20-2024 End: 02-20-2024 Patient encounter procedure 02/20/2024 10:30 AM EDT Office Visit [facility] [address] [place] [address] Mayco Roman MD [address] [facility] [place] [address] [facility] Start: 02-20-2024 End: 02-20-2024 Patient encounter procedure 02/20/2024 9:15 AM EDT Appointment [facility] [address] [place] [address] [facility] Start: 02-14-2024 End: 02-14-2024 ambulatory 02/14/2024 9:00 AM EDT Infusion [facility] [address] [place] [phone] [facility] Start: 12-20-2023 End: 12-20-2023 ambulatory 12/20/2023 9:00 AM EDT Infusion [facility] [address] [facility] [facility] [address] [place] [address] [facility] Start: 11-30-2023 End: 11-29-2024 CBC W Auto Differential panel - Blood CBC auto differential Lab Routine Crohn's disease of both small and large intestine with intestinal obstruction ([facility]) Expected: 11/30/2023 (Approximate), Expires: 11/29/2024 [facility] Comment on above: Expected: 11/30/2023 (Approximate), Expires: 11/29/2024 Start: 11-30-2023 End: 11-30-2023 Patient encounter procedure 11/30/2023 9:30 AM EDT Office Visit [facility] [address] [place] [address] Suresh Diaz MD [address] [facility] [address] [place] [address] [facility] Start: 10-25-2023 End: 10-25-2023 ambulatory 10/25/2023 9:00 AM EDT Infusion [facility] [address] [place] [phone] [facility] Start: 2023 Screening for malign ant neoplasm of cervix HPV/Cotest [facility] Start: 03-31-2023 Influenza vaccination Influenza Vacc ine [facility] Start: 03-04-2022 Depression Screening Depression Scre [facility] Start: 2012 DTaP,Tdap and Td Vaccines (1 - Tdap) DTaP,Tdap and Td Vaccines (1 - Tdap) [facility] Start: 2011 Adult BMI Follow Up Plan Adult BMI Follow Up Plan [facility] Start: 2005 Depression Screening Depression Scre [facility] End: 11-29-2024 C-reactive protein C-reactive protein Lab Routine Crohn's disease of both small and large intestine with intestinal obstruction ([facility]) 1 Occurrences starting 11/30/2023 until 11/29/2024 [employer]: Comment on above: 1 Occurrences starti ng 11/30/2023 until 11/29/2024 CBC W Auto Different ial panel - Blood CBC and differential Lab Routine Menorrhagia with regular cycle PCOS (polycystic ovarian syndrome) Ordered: 01/21/2025 [facility] [employer] Comment on above: Ordered: 01/21/2025 End: 11-29-2024 Comprehensive metabolic 2000 panel - Serum or Plasma Comprehensive metabolic panel Lab Routine Crohn's disease of both small and large intestine with intestinal obstruction (CMS-HCC) 1 Occurrences starting 11/30/2023 until 11/29/2024 [employer] Comment on above: 1 Occurrences starti ng 11/30/2023 until 11/29/2024 End: 11-29-2024 Cyanocobalamin vitamin b-12 Vitamin B12 Lab Routine Crohn's disease of both small and large intestine with intestinal obstruction ([facility]) 1 Occurrences starting 11/30/2023 until 11/29/2024 [employer] Comment on above: 1 Occurrences starti ng 11/30/2023 until 11/29/2024 DHEA-sulfate DHEA-sulfate Lab Routine Menorrhagia with regular cycle PCOS (polycystic ovarian syndrome) Ordered: 01/21/2025 [facility] Comment on above: Ordered: 01/21/2025 Follicle stimulating hormone Follicle stimulating hormone Lab Routine Menorrhagia with regular cycle PCOS (polycystic ovarian syndrome) Ordered: 01/21/2025 [facility] Comment on above: Ordered: 01/21/2025 hCG, quantitative, hCG, quantitative, Lab Routine Menorrhagia with regular cycle PCOS (polycystic ovarian syndrome) Ordered: 01/21/2025 [facility] [employer] Work Phone: Comment on above: Ordered: 01/21/2025 Hemoglobin A1c/Hemoglobin.total in Blood Hemoglobin A1c Lab Routine Menorrhagia with regular cycle Ordered: 01/21/2025 [facility] Comment on above: Ordered: 01/21/2025 Luteinizing hormone Luteinizing hormone Lab Routine Menorrhagia with regular cycle PCOS (polycystic ovarian syndrome) Ordered: 01/21/2025 [facility] Comment on above: Ordered: 01/21/2025 End: 10-24-2024 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[employer] Lab Routine Crohn's disease of small and large intestines with complication ([facility]) 1 Occurrences starting 10/25/2023 until 10/24/2024 [employer]: Comment on above: 1 Occurrences starti ng 10/25/2023 until 10/24/2024 Thyrotropin [Units/volume] in Serum or Plasma TSH Lab Routine Menorrhagia with regular cycle PCOS (polycystic ovarian syndrome) Ordered: 01/21/2025 [employer] Comment on above: Ordered: 01/21/2025 Thyroxine (T4) free [Mass/volume] in Serum or Plasma T4, free Lab Routine Menorrhagia with regular cycle PCOS (polycystic ovarian syndrome) Ordered: 01/21/2025 [employer] Comment on above: Ordered: 01/21/2025 End: 11-29-2024 Vitamin D 25 hydroxy Vitamin D 25 hydroxy Lab Routine Crohn's disease of both small and large intestine with intestinal obstruction ([facility]) 1 Occurrences starting 11/30/2023 until 11/29/2024 [employer] Comment on above: 1 Occurrences starti ng 11/30/2023 until 11/29/2024 Payers Date Payer Category Payer Medicaid [id number] 2022 Medicaid [id number] 1993 Unknown [id number] 2.16.8 40.1.967899.3.579.2.196 1993 Unknown [id number] 2.16.84 0.1.840949.3.579.2.593 1993 Unknown [id number] 2.16.8 40.1.424584.3.579.2.1286 1993 Unknown [id number] 2.16.8 40.1.509749.3.579.2.1286 1993 Unknown [id number] 2.16.8 40.1.956176.3.579.2.1286 1993 Unknown [id number] 2.16.8 40.1.660967.3.579.2.128 1993 Unknown [id number] 2.16.8 40.1.925893.3.579.2.1285 1993 Unknown [id number] 2.16.8 40.1.551442.3.579.2.1285 1993 Unknown [id number] 2.16. 840.1.000090.3.579.2.1285 1993 Unknown [id number] 2.16. 840.1.720287.3.579.2.1285 1993 Unknown [id number] 2.16. 840.1.532727.3.579.2.1285 1993 Unknown [id number] 2.16. 840.1.885330.3.579.2.1285 1993 Unknown [id number] 2.16. 840.1.844389.3.579.2.1285 1993 Unknown [id number] 2.16.8 40.1.337928.3.579.2.1285 1993 Unknown [id number] 2.16.8 40.1.341963.3.579.2.1285 1993 Unknown [id number] 2.16.8 40.1.719983.3.579.2.1285 1993 Unknown [id number] 2.16.8 40.1.101797.3.579.2.1285 1993 Unknown [id number] 2.16.8 40.1.556039.3.579.2.1285 1993 Unknown [id number] 2.16.8 40.1.820097.3.579.2.1285 1993 Unknown [id number] 2.16.8 40.1.513553.3.579.2.1285 1993 Unknown [id number] 2.16.8 40.1.441789.3.579.2.1285 1993 Unknown [id number] 2.16.8 40.1.815280.3.579.2.1286 1993 Unknown [id number] 2.16.8 40.1.256111.3.579.2.1286 1993 Unknown [id number] 2.16.8 40.1.540531.3.579.2.1286 1993 Unknown [id number] 2.16.8 40.1.413199.3.579.2.128 1993 Unknown [id number] 2.16.8 40.1.362201.3.579.2.1286 1993 Unknown [id number] 2.16.8 40.1.654927.3.579.2.1286 1993 Unknown [id number] 2.16.8 40.1.489258.3.579.2.1286 1993 Unknown [id number] 2.16.8 40.1.901287.3.579.2.1286 1993 Unknown [id number] 2.16.8 40.1.245794.3.579.2.1259 1993 Unknown [id number] 2.16.84 0.1.487640.3.579.2.1258 1993 Unknown [id number] 2.16.84 0.1.922646.3.579.2.9 1993 Unknown [id number] 2.16.84 0.1.597476.3.579.2.1259 1993 Unknown [id number] 2.16.84 0.1.420755.3.579.2.1259 1993 Unknown [id number] 2.16.84 0.1.016691.3.579.2.1258 1993 Unknown [id number] 2.16.84 0.1.053969.3.579.2.1259 1993 Unknown [id number] 2.16.84 0.1.935740.3.579.2.1258 1993 Unknown [id number] 2.16.84 0.1.863653.3.579.2.1259 1993 Unknown [id number] 2.16.84 0.1.796989.3.579.2.1259 1993 Unknown [id number] 2.16.84 0.1.058655.3.579.2.1259 1959 Self-pay [id number] 07-31-1799 Self-pay Unknown [id number] 2.16.8 40.1.018488.3.579.2.531 Social History Date Type Detail Facility Start: 07-05-2022 End: 12-08-2023 Tobacco smoking status AKIS Never smoked tobacco [facility] Start: 07-05-2022 End: 12-08-2023 Tobacco use and exposure Smokeless tobacco non-user [facility] Start: 05-02-2024 End: 01-21-2025 Alcoholic beverage intake Ex-drinker (finding) [facility] Start: 12-08-2023 End: 04-04-2024 History of Social function [facility] Start: 12-08-2023 End: 04-04-2024 Tobacco use panel [facility] Start: 10-17-2023 [facility] Start: 1995 Sex assigned at Not on file [facility] Do you belong to any clubs or organizations such as spiritism groups, unions, fraternal or athletic groups, or school groups? No [facility] Are you now , , , , never or living with a partner? [facility] How often to you hav e a drink containing alcohol? 2-4 times a month [facility] Average Number of Drinks Not on file [facility] Do you feel stress - tense, restless, nervous, or anxious, or unable to sleep at night because your mind is troubled all the time - these days [OSQ] Only a little [facility] Start: 12-22-2021 Alcohol Comment socially [facility] Start: 10-16-2019 Sex Female (finding) [facility] Start: 05-10-2023 End: 03-10-2024 Alcohol intake Current drinker of alcohol (finding) [facility] Goals Date Patient Goal Desired Activity /State Personal health goal Comment on above: Formatting of this n ote might be different from the original. Evaluation of progress towards goal: Patient plans to return home with [facility] Clinical Notes 08-30-2023 to 01-21-2025 Zully HdzWENDY - 01/21/2025 11:00 AM Mario Abdalla RN - 01/16/2025 9:00 AM Mario Abdalla RN - 01/16/2025 9:00 AM Mario Abdalla RN - 11/21/2024 9:00 AM EDT Note Date & Type Note Facility 01-21-2025 History of Presen t illness Narrative Reason for Appointment: Patient ID: Comfort Maldonado is a 29 y.o. female who presents for discuss cycles Patient presents today for Acute Visit. MEDICATIONS Current Outpatient Medications Medication Instructions inFLIXimab-axxq (Avsola) 100 MG injection 5 mg/kg, Every 2 months norethindrone (MICRONOR) 0.35 mg, Oral, Daily, Take 1 tablet by mouth daily norethindrone-ethinyl estradiol (Junel FE 08/19) 1-20 MG-MCG tablet 1 tablet, Oral, Daily Vit-Fe Fumarate-FA (GOODSENSE VITAMINS PO) 1 each, Daily ALLERGIES No Known Allergies PROBLEMS Active Ambulatory Problems Diagnosis Date Noted S/P 07/10/2024 Resolved Ambulatory Problems Diagnosis Date Noted No Resolved Ambulatory Problems Past Medical History: Diagnosis Date Crohn's disease (HCC) Genital warts Herpes Ovarian cyst HISTORY PAST MEDICAL HISTORY SOCIAL HISTORY Past Medical History: Diagnosis Date Crohn's disease (HCC) Genital warts Herpes Ovarian cyst Social History [...] nursing note reviewed. Exam conducted with a wire wheeler present. Vitals: There is no height or weight on file to calculate BMI. BP: 110/72 No LMP recorded. ASSESSMENT & PLAN ICD-10-CM 1. Menorrhagia with regular cycle N92.0 hCG, quantitative, TSH T4, free CBC and differential Follicle stimulating hormone Luteinizing hormone Hemoglobin A1c DHEA-sulfate DHEA US Pelvis w/ TV norethindrone-ethinyl estradiol (Junel FE 08/19) 1-20 MG-MCG tablet DHEA 2. PCOS (polycystic ovarian syndrome) E28.2 hCG, quantitative, TSH T4, free CBC and differential Follicle stimulating hormone Luteinizing hormone DHEA-sulfate DHEA US Pelvis w/ TV DHEA Pt presents to discuss cycles and is currently taking OCP while . Rx for junel faxed to pharmacy. Pt given labs and ultrasound to have obtained. Pt to return as needed. Documented by Zully Hdz LPN on behalf of: Art Horan DO documented in this encounter [facility] 01-16-2025 History of Presen t illness Narrative IV Infusion START time: 0855 Patient here for Remicade infusion. Patient denies any recent infections, open wounds, recent/future surgery, or insurance changes. IV started with 22g needle to Right AC by Renuka Middleton RN x1 attempt. Patient tolerated well. Remicade Lot# [id number] - 200mg Exp- 04/27/2027 Lot# [id number] -100 mg Exp- 08/27/2027 Time out performed prior to medication administration. Name, , medication(s) verified IV Infusion END time: 1016 patient infusion complete. IV discontinued, catheter intact, vitals WNL. Patient tolerated infusion well PIV flushed with 20 ml of 0.9% NS after medication infused Madonna Marrero NP , was present in infusion suite during infusion and immediately available. documented in this encounter [facility] 11-21-2024 History of Presen t illness Narrative IV Infusion START time: 912 Patient here for Remicade infusion. Patient denies any recent infections, open wounds, recent/future surgery, or insurance changes. IV started with 22g needle to Right AC by Renuka Middleton RN x1 attempt. Patient tolerated well. Remicade Lot# [id number] Exp- 05/27/2027 Time out performed prior to medication administration. Name, , medication(s) verified IV Infusion END time: 1023 patient infusion complete. IV discontinued, catheter intact, vitals WNL. Patient tolerated infusion well PIV flushed with 20 ml of 0.9% NS after medication infused documented in this encounter [facility] 09-26-2024 History of Presen t illness Narrative [facility] Follow Up Visit CHIEF COMPLAINT: No chief complaint on file. 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 Her last surgery was in 2019, she had been on infliximab when she was put on Renflexis. I reviewed her last surgical note, from Sep 29, 2020, where she was better on Remicade It states that her last colonoscopy in flexible sigmoidoscopy follow-ups were in 2018 in 2019 at [facility]. In 2020-had laparotomy with lysis of adhesions, takedown of end ileostomy with ileocolonic anastomosis, and then takedown of the loop colostomy with some bowel resection and colocolonic reanastomosis. Last C-reactive protein in November was 0.5. She also had low vitamin-D and B12 at that time. The patient is seen here at the infusion Center today, doing very well. She has no abdominal pain, no diarrhea, no bleeding, no nausea vomiting, or any weight loss. After she had her child about 3 months ago, her rehabilitation psychologist told her to stop the B12 and vitamin-D, but I would urge her to restart those and take them regularly daily. We will then recheck the values in 3 months, as I explained the potential side effects without those, since she will always malabsorption after her surgery. We also can get the CRP at that time. The patient is doing well on her infliximab treatments, without apparent side effects, and does not appear to have active disease, without any other skin lesions or bowel problems, having normal stools even with a history of rectal stricture. Therefore will follow-up in a year. REVIEW OF SYSTEMS: Review of Systems Musculoskeletal: Positive for myalgias. All other systems reviewed and are negative. ALLERGIES: Patient has no known allergies. Current Medications: Current Outpatient Medications: cholecalciferol, vitamin D3, 25 mcg (1,000 unit) tablet,chewable, Chew and swallow daily. (Patient not taking: Reported on 08/01/2024), Disp: , Rfl: folic acid (FOLVITE) 1 mg tablet, Take 1 tablet (1,000 mcg total) by mouth. (Patient not taking: Reported on 08/01/2024), Disp: , Rfl: inFLIXimab-axxq (AVSOLA) 100 mg injection, Infuse 5 mg/kg into a venous catheter every 60 (sixty) days. (Patient not taking: Reported on 05/15/2024), Disp: , Rfl: norethindrone (MICRONOR) 0.35 mg tablet, Take 1 tablet (0.35 mg total) by mouth in the morning., Disp: , Rfl: vit37/iron/folic acid (PRENATA ORAL), Take by mouth daily., Disp: , Rfl: valACYclovir (VALTREX) 500 mg tablet, Take 1 tablet (500 mg total) by mouth in the morning and 1 tablet (500 mg total) before bedtime., Disp: , Rfl: vitamin B-6 25 MG tablet, Take 1 tablet (25 mg total) by mouth. (Patient not taking: Reported on 06/11/2024), Disp: , Rfl: No current facility-administered medications for this visit. Facility-Administered Medications Ordered in Other Visits: sodium chloride 0.9 % infusion, 25 mL/hr, intravenous, Continuous PRN, Suresh Diaz MD, Last Rate: 25 mL/hr at 09/26/24 1000, 25 mL/hr at 09/26/24 1000 I reviewed and reconciled this patient's medication list today. The list included in this note is the most up to date list that I can attest to at this time based on the information that the patient has provided me and the electronic medical record. PAST MEDICAL, SOCIAL AND FAMILY HISTORY: Past Medical History: Past Medical History: Diagnosis Date Crohn's colitis ([facility]) Fibromyalgia, primary Herpes Ovarian cyst Past Surgical History: Past Surgical History: Procedure Laterality Date SECTION COLON SURGERY 10/21/2019 COLOSTOMY FLEXIBLE SIGMOIDOSCOPY N/A 08/06/2020 Performed by Efe Hooks MD at [facility] FLEXIBLE SIGMOIDOSCOPY N/A 04/17/2020 Performed by Efe Hooks MD at [facility] ENDOSCOPY ILEOCECECTOMY, LOOP COLOSTOMY, DRAINAGE OF PELVIC ABSCESS, OMENTAL FLAP, END ILEOSTOMY, WOUND VAC APPLICATION, DEBRIDEMENT OF SACRAL AND GLUTEAL WOUND N/A 10/24/2019 Performed by Efe Hooks MD at [facility] ILEOSTOMY LAPAROTOMY EXPLORATORY/TAKEDOWN SPLENIC FLEXURE N/A 08/06/2020 Performed by Efe Hooks MD at [facility] RESECTION SMALL BOWEL/ SEGMENTAL BOWEL RESECTION N/A 08/06/2020 Performed by Efe Hooks MD at [facility] TAKE DOWN COLOSTOMY N/A 08/06/2020 Performed by Efe Hooks MD at [facility] TAKEDOWN ILEOSTOMY N/A 08/06/2020 Performed by Efe Hooks MD at [facility] SOCIAL HISTORY: Social History Tobacco Use Smoking status: Never Smokeless tobacco: Never Vaping Use Vaping status: Never Used Substance Use Topics Alcohol use: Not Currently Alcohol/week: 2.0 standard drinks of alcohol Types: 2 Glasses of wine per week Comment: socially Drug use: Not Currently Types: Marijuana Comment: daily PHYSICAL EXAM: LMP 10/03/2023 (Exact Date) There is no height or weight on file to calculate BMI. Wt Readings from Last 7 Encounters: 09/26/24 74.7 kg (164 lb 9.6 oz) 08/01/24 70.1 kg (154 lb 9.6 oz) 06/11/24 72 kg (158 lb 12.8 oz) 06/05/24 63.8 kg (140 lb 9.6 oz) 04/17/24 64.6 kg (142 lb 6.4 oz) 04/10/24 67.6 kg (149 lb) 03/19/24 65.6 kg (144 lb 9.6 oz) Physical Exam Vitals reviewed. Exam conducted with a wire wheeler present (When appropriate). Constitutional: Appearance: Normal appearance. She is normal weight. HENT: Head: Normocephalic and atraumatic. Eyes: Conjunctiva/sclera: Conjunctivae normal. Abdominal: General: Bowel sounds are normal. There is no distension. Palpations: Abdomen is soft. There is no mass. Tenderness: There is no abdominal tenderness. Hernia: No hernia is present. Comments: Central scar Skin: General: Skin is warm and dry. Neurological: General: No focal deficit present. Mental Status: She is alert and oriented to person, place, and time. Psychiatric: Mood and Affect: Mood normal. Behavior: Behavior normal. RADIOLOGICAL DATA: No results found. DATA: CBC: Lab Results Component Value Date WBC 7.4 12/11/2023 HGB 14.2 12/11/2023 HCT 40.5 12/11/2023 MCV 87 12/11/2023 RDW 13.3 12/11/2023 PLT 254 12/11/2023 CMP: Lab Results Component Value Date K 4.1 12/11/2023 CL 104 12/11/2023 CO2 23 12/11/2023 BUN 6 12/11/2023 GLU 92 12/11/2023 GLU 91 10/29/2019 Iron Studies: Lab Results Component Value Date IRON 149 01/07/2021 TIBC 438 (H) 01/07/2021 PT/INR: No results found for: INR , PROTIME VITAMIN B12: Lab Results Component Value Date [id number] 142 (L) 12/11/2023 FOLATE: No results found for: FOLATE LIPASE: No results found for: LIPA DIAGNOSTIC STUDIES REVIEWED: As noted in the HPI Patient Care Team: Sean Abraham MD as PCP - General (Family Medicine) Suresh Diaz MD as Consulting Physician (Gastroenterology) Efe Hooks MD as Referring Physician (General Surgery) ASSESSMENT AND PLAN: Decision making: Essentially patient is very stable regarding her Crohn's, without any sign of fistulas, or active disease, but we will follow-up CRP. She was previously low in the B12 and vitamin-D, which will likely be continuous with the prior bowel resections, therefore I have urged her to restart the treatments, and she has 1000 mg tablets at home, which I suggest take 2000 units. Also she seem to be stable on oral B12 and there is some literature that high dose will work for her. Therefore will continue this as well and recheck in 3 months. Otherwise follow-up in a year or if problems. For now continue the infliximab. Diagnoses and all orders for this visit: Crohn's disease of both small and large intestine with intestinal obstruction (CMS-HCC) Rectal stricture B12 deficiency Vitamin D deficiency Thank you for allowing me to participate in this pleasant patient s care. This note was created with the assistance of a speech-recognition program. While intending to generate a timely document that accurately reflects the content of the visit, no guarantee can be provided that every grammatical or spelling mistake has been or will be identified or corrected. Thank you for your understanding. Suresh Glass MD, MPH [facility] [facility] [place] [id number] PH: [phone] documented in this encounter [facility] 09-26-2024 Miscellaneous Notes K 50.819 / Crohn's Patient authorization expires on 10/23/24. Patient is taking the Remicade infusion. The dose is 300 mg ( weight was good for 400 mg)every 8 weeks. The next infusion is on 11/21/24 The diagnosis code is K 50.819 Remicade 400mg every 56 days PA was faxed to [phone] documented in this encounter [facility] 09-26-2024 Telephone encounter Note K 50.819 / Crohn's Patient authorization expires on 10/23/24. Patient is taking the Remicade infusion. The dose is 300 mg ( weight was good for 400 mg)every 8 weeks. The next infusion is on 11/21/24 The diagnosis code is K 50.819 [facility] 09-26-2024 Telephone encounter Note Remicade 400mg every 56 days PA was faxed to [phone] [facility] 09-26-2024 History of Presen t illness Narrative Infusion start time: 1015 Patient here for Remicade infusion. Patient denies any recent infections or on antibiotics, open wounds, recent/future surgery, vaccinations or insurance changes. IV started with 22g needle to right ac by Sayra Timmons RN x1 attempt. Patient tolerated well. Remicade Lot# [id number] 2 vials Exp- 03/30/2027 Lot# [id number] 1vial Exp 03/30/2027 Time out performed prior to medication administration. Name, , medication(s) verified 1115 patient infusion complete. IV flushed with normal saline. IV discontinued at 1117, catheter intact, vitals WNL. Patient tolerated infusion well documented in this encounter [facility] 08-01-2024 History of Presen t illness Narrative Time out performed with Sayra GILL. Remicade to be mixed and administered to patient per current treatment plan orders Infusion start time: 956 Patient here for Remicade infusion. Patient denies any recent infections or on antibiotics, open wounds, recent/future surgery, vaccinations or insurance changes. IV started with 22g needle to right ac by Sayra Timmons RN x1 attempt. Patient tolerated well. Remicade Lot# [id number] Exp- 12/28/2026 Time out performed prior to medication administration. Name, , medication(s) verified 10:58 am patient infusion complete. IV flushed with 10ml normal saline. IV discontinued, catheter intact, vitals WNL. Patient tolerated infusion well documented in this encounter [facility] 07-10-2024 History of Presen t illness Narrative Reason for Appointment: Patient ID: Comfort Maldonado is a 28 y.o. female who presents for Post-op Visit ( 07/02/24) Patient presents today for Post Follow Up appointment. MEDICATIONS Current Outpatient Medications Medication Instructions inFLIXimab-axxq (Avsola) 100 MG injection 5 mg/kg, Every 2 months Vit-Fe Fumarate-FA (GOODSENSE VITAMINS PO) 1 each, Daily ALLERGIES No Known Allergies PROBLEMS Active Ambulatory Problems Diagnosis Date Noted S/P 07/10/2024 Resolved Ambulatory Problems Diagnosis Date Noted No [...] weight on file to calculate BMI. BP: 102/62 Patient's last menstrual period was 10/03/2023. ASSESSMENT & PLAN ICD-10-CM 1. S/P Z98.891 Post Follow Up: Patient is doing well. Patient presents today for 6 week visit. Patient is s/p delivery. Patient states depression but denies suicidal and homicidal ideations. All options were discussed with the patient regarding control and patient desires oral contraception . Follow Up: Patient is to return for annual unless needed otherwise. Documented by STEPHANIE Thorne on behalf of: STEPHANIE Thorne documented in this encounter [facility] 06-24-2024 History of Presen t illness Narrative [...] nursing note reviewed. Exam conducted with a wire wheeler present. Vitals: There is no height or [...] by Paddy Garza LPN on behalf of: Art Horan DO documented in this encounter [facility] 06-17-2024 History of Presen t [...] of: STEPHANIE Thorne documented in this encounter [facility] 06-11-2024 History of Presen t [...] small and large intestine with intestinal obstruction ([facility]) Ileostomy status ([facility] Colostomy status ([facility]) Rectal stricture Crohn's disease of small and large intestines with complication ([facility]) Cyst of right ovary Poor growth affecting [...] Past Medical History: Diagnosis Date Crohn's colitis ([facility]) Fibromyalgia, primary Herpes Ovarian cyst REVIEW OF [...] do not hesitate to call me. Sincerely, MAYCO ROMAN MD documented in this encounter [facility] [employer] [facility] 06-10-2024 History of Presen t illness Narrative [...] nursing note reviewed. Exam conducted with a wire wheeler present. Vitals: There is no height or [...] by Paddy Garza LPN on behalf of: Art Horan DO documented in this encounter [facility] 06-05-2024 History of Presen t illness Narrative IV Infusion START time: 0915 Patient here for Entyvio infusion. Patient denies any recent infections, open wounds, recent/future surgery, or insurance changes. IV started with 22g needle to Right AC by Renuka Middleton RN x1 attempt. Patient tolerated well. Remicade Lot# [id number] Exp- 08/27/2026 Time out performed prior to medication administration. Name, , medication(s) verified IV Infusion END time: 1125 patient infusion complete. IV discontinued, catheter intact, vitals WNL. Patient tolerated infusion well PIV flushed with 10 ml of 0.9% NS after medication infused documented in this encounter [facility] 06-03-2024 History of Presen t illness Narrative [...] nursing note reviewed. Exam conducted with a wire wheeler present. Vitals: There is no height or [...] by Paddy Garza LPN on behalf of: Art Horan DO documented in this encounter [facility] 05-16-2024 History of Presen t [...] nursing note reviewed. Exam conducted with a wire wheeler present. Vitals: There is no height or [...] order to have NST/BPP done locally at [facility]. Documented by Paddy Garza LPN on behalf of: Art Horan DO documented in this encounter [facility] 05-15-2024 History of Presen t [...] all scheduled appointments documented in this encounter [facility] 05-02-2024 History of Presen t illness [...] of: STEPHANIE Thorne documented in this encounter [facility] 04-17-2024 History of Presen t illness Narrative Headache/epigastric pain/blurry vision/swelling? No Cramping/contractions? No Abnormal vaginal discharge? No Spotting or vaginal bleeding? No Loss or gush of fluid like your water may have broken? No Recent ER visits or hospitalizations? No Any concerns that you would like me to mention to the provider today? No REASON FOR OFFICE VISIT: growth restriction. HISTORY OF PRESENT ILLNESS: Comfort Maldonado is a pleasant 28 y.o. 001 at 28w1d due on Estimated Date of Delivery: 07/09/24 . has been complicated with growth restriction with estimated weight at the 7th percentile with normal Doppler studies. 2. Complex Crohn's disease that has required multiple surgical interventions currently in remission. No active flare Complex Crohn's disease that has required multiple surgical interventions. This includes ex lap/takedown end ileostomy with small bowel resection and ileocolonic anastomosis/takedown of loop colostomy with large bowel resection and colocolonic anastomosis/takedown splenic flexure/incisional wound VAC application.Patient initially started with complex Crohn's disease that led to complicated bowel involvement. Colorectal surgery ( Dr. Hooks) was involved at [facility] and the patient underwent ileocecectomy with end ileostomy and diverting loop colostomy and debridement of her back due to complicated Crohn's disease with a large pelvic abscess draining in her back through a fistula communicating through the soft tissues lateral to the sacrum to the skin in the area near the distal lumbar spine and the sacrum. Surgery was on 10/24/2019. She also had a very tight stricture in the distal rectum secondary to Crohn's disease that has required sigmoidsopy. 3. Suspected cardiac defect ruled out. Patient was sent to Pediatric Cardiology and it has been ruled out. Currently the patient has no complaints. The patient denies nausea, vomiting, abdominal pain, vaginal bleeding, SOB or chest pain. Patient Active Problem List Diagnosis Abdominal fistula Sacral wound Primary hydronephrosis Crohn's disease of both small and large intestine with intestinal obstruction (CMS-HCC) Ileostomy status ([facility]) Colostomy status ([facility]) Rectal stricture Crohn's disease of small and large intestines with complication (CMS-HCC) Cyst of right ovary Poor growth affecting management of mother in third trimester ALLERGIES: No Known Allergies CURRENT MEDICATIONS: Current Outpatient Medications: cholecalciferol, vitamin D3, 25 mcg (1,000 unit) tablet,chewable, Chew and swallow daily., Disp: , Rfl: inFLIXimab-axxq (AVSOLA) 100 mg injection, Infuse 5 mg/kg into a venous catheter every 60 (sixty) days., Disp: , Rfl: vit37/iron/folic acid (PRENATA ORAL), Take by mouth daily., Disp: , Rfl: Past Medical History: Diagnosis [...] Ultrasound findings are see report. PHYSICAL EXAMINATION: Wt 64.6 kg (142 lb 6.4 oz) LMP 10/03/2023 (Exact Date) BMI 26.89 kg/m . Gravid abdomen, Respirations not labored. Normal gait well oriented in time place and person. RECOMMENDATION: 1. Continue serial Doppler studies at MFM office. 2. Continue testing at her OB office. 3. Delivery at 39 weeks gestation at her local hospital via . 4. Initiate testing form once a week NST and ANJELICA starting at 28 weeks gestation at her OB office. 5. Follow-up in 8 weeks for office visit. Thank you for allowing me to participate in Comfort Maldonado care. If there are any questions, please do not hesitate to call me. Sincerely, MAYCO ROMAN MD documented in this encounter [facility] 04-10-2024 History of Presen t illness Narrative IV Infusion START time: 855 Patient here for Remicade infusion. Patient denies any recent infections, open wounds, recent/future surgery, or insurance changes. IV started with 22g needle to Right AC by Renuka Middleton RN x1 attempt. Patient tolerated well. Remicade Lot# [id number] - 300mg Exp- 10/26/2023 Time out performed prior to medication administration. Name, , medication(s) verified 1120 patient infusion complete. IV discontinued, catheter intact, vitals WNL. Patient tolerated infusion well and discharged home. documented in this encounter [facility] 04-04-2024 History of Presen t illness Narrative Reason for Appointment: Patient ID: Comfort Maldonado is a 28 y.o. female who presents for Routine Visit Patient presents today for Return OB appointment. MEDICATIONS Current Outpatient Medications Medication Instructions folic acid (FOLVITE) 1 mg, Oral, Daily inFLIXimab-axxq (Avsola) 100 MG injection 5 mg/kg, Intravenous, Every 2 months Vit-Fe Fumarate-FA (ZapointENSE VITAMINS PO) 1 each, Daily pyridoxine (VITAMIN B-6) 25 mg, Oral, Daily ALLERGIES No Known Allergies PROBLEMS Active [...] nursing note reviewed. Exam conducted with a wire wheeler present. Vitals: There is no height or weight on file to calculate BMI. BP: 104/64 Patient's last menstrual period was 10/03/2023. ASSESSMENT & PLAN ICD-10-CM 1. 26 weeks gestation of Z3A.26 POCT urinalysis dipstick manually resulted Patient presents today for a routine obstetrics appointment. Patient is currently 26w2d with a Estimated Date of Delivery: 07/09/24. Patient to RTC in 2-3 weeks. Documented by Paddy Garza LPN on behalf of: Art Horan DO documented in this encounter [facility] 03-28-2024 History of Presen t illness Narrative REASON FOR OFFICE VISIT: growth restriction HISTORY OF PRESENT ILLNESS: Comfort Maldonado is a pleasant 28 y.o. G 2 P1 001 at 25w2d due on Estimated Date of Delivery: 07/09/24 . has been complicated with growth restriction with estimated weight at the 9th percentile with normal Doppler studies. 2. Complex Crohn's disease that has required multiple surgical interventions currently in remission. No active flare Complex Crohn's disease that has required multiple surgical interventions. This includes ex lap/takedown end ileostomy with small bowel resection and ileocolonic anastomosis/takedown of loop colostomy with large bowel resection and colocolonic anastomosis/takedown splenic flexure/incisional wound VAC application.Patient initially started with complex Crohn's disease that led to complicated bowel involvement. Colorectal surgery ( Dr. Hooks) was involved at [facility] and the patient underwent ileocecectomy with end ileostomy and diverting loop colostomy and debridement of her back due to complicated Crohn's disease with a large pelvic abscess draining in her back through a fistula communicating through the soft tissues lateral to the sacrum to the skin in the area near the distal lumbar spine and the sacrum. Surgery was on 10/24/2019. She also had a very tight stricture in the distal rectum secondary to Crohn's disease that has required sigmoidsopy. 3. Suspected cardiac defect ruled out. Patient was sent to Pediatric Cardiology and it has been ruled out. Currently the patient has no complaints. The [...] with complication (CMS-HCC) Cyst of right ovary ALLERGIES: No Known Allergies CURRENT MEDICATIONS: Current Outpatient Medications: cholecalciferol, vitamin D3, 25 mcg (1,000 unit) tablet,chewable, Chew and swallow daily., Disp: , Rfl: inFLIXimab-axxq (AVSOLA) 100 mg injection, Infuse 5 mg/kg into a venous catheter every 60 (sixty) days., Disp: , Rfl: vit37/iron/folic acid (PRENATA ORAL), Take by mouth daily., Disp: , Rfl: Past Medical History: Diagnosis Date Crohn's colitis ([facility]) Fibromyalgia, primary Herpes Ovarian cyst REVIEW OF SYSTEMS: Head and Neck: Negative for any dizziness and headaches. Cardiovascular and Respiratory System: Denies any chest pain, shortness of breath, and coughing. Abdominal and System: Denies any abdominal pain, nausea, vomiting, vaginal bleeding, and vaginal discharge RECOMMENDATION: 1. Continue serial Doppler studies at [facility] office. 2. Continue growth ultrasounds at [facility] office. 3. testing at her local Ob office. 4. Delivery at 39 weeks gestation via at her local hospital. 5. Will continue follow patient. Thank you for allowing me to participate in Comfort Maldonado care. If there are any questions, please do not hesitate to call me. Sincerely, MAYCO ROMAN MD documented in this encounter [facility] 03-19-2024 History of Presen t illness Narrative [address] [facility] [address] March 19, 2024 Patient: Comfort Maldonado Date of : 1995 Date of Visit: 03/19/2024 Dear ; I had the pleasure of seeing Comfort Maldonado, at our pediatric cardiology clinic on 03/19/2024 .As you know, Mrs Comfort Alexander is a 28 y.o. female G 2 P1 001. referred to Cardiology ([facility] 07/09/24) at 24 weeks and 0 days for observation of deviation of long axis of heart 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 .Mrs Comfort Maldonado is accompanied by her and daughter. Since Mrs Comfort Al denies having any cardiac symptoms:No chest pain, no cyanosis, no palpitations, lightheadedness, dizziness, syncope, or near syncope. No shortness of breath, no wheezing. No seizures. No headaches. No abdominal pain/contractions, no recent viral illnesses, no abdominal bleeding, spotting or discharge. has been complicated by complex Crohn's disease. She is currently on IV Remicade. Review of Systems Constitution: Negative for diaphoresis, fever, weight gain or weight loss. Head: Negative for headaches or vision changes ENT: Negative for congestion or nosebleeds. Cardiovascular: Negative for chest pain, palpitations, racing heart, irregular heart beats or cyanosis. No recent illnesses. Respiratory: Negative for shortness of breath, dyspnea, coughing or increased work of breathing. Musculoskeletal: Negative for joint pain or swelling. Gastrointestinal: Negative for diarrhea, nausea or vomiting. Renal: Negative for excessive urination or painful urination. Neurological: Negative for dizziness, light-headedness, syncope, seizures, numbness, or tingling. Psychiatric/Behavioral: Negative for stress, anxiety or depression. Negative for cramping or contractions, spotting or bleeding, or abnormal discharge. All other systems negative Current Outpatient Medications Medication Sig Dispense Refill cholecalciferol, vitamin D3, 25 mcg (1,000 unit) tablet,chewable Chew and swallow daily. inFLIXimab-axxq (AVSOLA) 100 mg injection Infuse 5 mg/kg into a venous catheter every 60 (sixty) days. vit37/iron/folic acid (PRENATA ORAL) Take by mouth daily. cyanocobalamin, vitamin B-12, 2,500 mcg tablet, sublingual Place 1 tablet under the tongue once daily. (Patient not taking: Reported on 02/29/2024) ondansetron ODT (ZOFRAN ODT) 4 mg disintegrating tablet Dissolve 1 tablet (4 mg total) on tongue every 8 (eight) hours as needed for nausea for up to 10 doses. (Patient not taking: Reported on 02/20/2024) 10 tablet 0 tiZANidine (ZANAFLEX) 4 mg tablet Take 1 tablet (4 mg total) by mouth 2 (two) times a day as needed. (Patient not taking: Reported on 02/20/2024) No current facility-administered medications for this visit. No Known Allergies Past Medical History: Diagnosis Date Crohn's colitis ([facility]) Fibromyalgia, primary Herpes Ovarian cyst Past Surgical History: Procedure Laterality Date SECTION COLON SURGERY 10/21/2019 COLOSTOMY FLEXIBLE SIGMOIDOSCOPY N/A 08/06/2020 Performed by Efe Hooks MD at [facility] FLEXIBLE SIGMOIDOSCOPY N/A 04/17/2020 Performed by Efe Hooks MD at [facility] ILEOCECECTOMY, LOOP COLOSTOMY, DRAINAGE OF PELVIC ABSCESS, OMENTAL FLAP, END ILEOSTOMY, WOUND VAC APPLICATION, DEBRIDEMENT OF SACRAL AND GLUTEAL WOUND N/A 10/24/2019 Performed by Efe Hooks MD at [facility] ILEOSTOMY LAPAROTOMY EXPLORATORY/TAKEDOWN SPLENIC FLEXURE N/A 08/06/2020 Performed by Efe Hooks MD at [facility] RESECTION SMALL BOWEL/ SEGMENTAL BOWEL RESECTION N/A 08/06/2020 Performed by Efe Hooks MD at [facility] TAKE DOWN COLOSTOMY N/A 08/06/2020 Performed by Efe Hooks MD at [facility] TAKEDOWN ILEOSTOMY N/A 08/06/2020 Performed by Efe Hooks MD at [facility] Family History Problem Relation Age of Onset Thyroid Issues Mother Diabetes Father Breast cancer Maternal Grandmother Stroke Maternal Grandfather Heart defect Maternal Grandfather unknown Colon cancer Neg Hx Anesthesia problems Neg Hx Seizures Neg Hx Hypertension Neg Hx Arrhythmia Neg Hx Asthma Neg Hx Heart attack Neg Hx Sudden Neg Hx Clotting disorder Neg Hx High Cholesterol Neg Hx There is no family history of cyanotic congenital heart disease, SIDS, sudden cardiac , or congenital anomalies or arrhythmias or hypercoaguble state ,no congenital deafness.No family history of anyone with sudden, unexplained, and unexpected before the age of 50.Parent denies anyone in the family who has been diagnosed with a sudden -predisposing heart condition such as HCM, LQTS, Brugada syndrome. Social History: Social History Socioeconomic History Marital status: Spouse name: Not on file Number of children: Not on file Years of education: Not on file Highest education level: Not on file Occupational History Not on file Tobacco Use Smoking status: Never Smokeless tobacco: Never Vaping Use Vaping status: Never Used Substance and Sexual Activity Alcohol use: Not Currently Alcohol/week: 2.0 standard drinks of alcohol Types: 2 Glasses of wine per week Comment: socially Drug use: Not Currently Types: Marijuana Comment: daily Sexual activity: Yes Partners: Male control/protection: None Other Topics Concern Not on file Social History Narrative Not on file Social Determinants of Health Financial Resource Strain: Low Risk (08/06/2020) Overall Financial Resource Strain (CARDIA) Difficulty of Paying Living Expenses: Not hard at all Food Insecurity: No Food Insecurity (03/19/2024) Hunger Screening Food Insecurity - Worry: Never True Food Insecurity - Inability: Never True Transportation Needs: No Transportation Needs (08/06/2020) PRAPARE - Transportation Lack of Transportation (Medical): No Lack of Transportation (Non-Medical): No Physical Activity: Not on file Stress: No Stress Concern Present (08/06/2020) [place] of Occupational [employer] - Occupational Stress Questionnaire Feeling of Stress : Only a little Social Connections: Moderately Isolated (08/06/2020) Social Connection and Isolation Panel [NHANES] Frequency of Communication with Friends and Family: Three times a week Frequency of Social Gatherings with Friends and Family: Once a week Attends Restorationist Services: Never Active Member of Clubs or Organizations: No Attends Club or Organization Meetings: Never Marital Status: Interpersonal Safety: Not At Risk (08/06/2020) Humiliation, Afraid, Rape, and Kick questionnaire Fear of Current or Ex-Partner: No Emotionally Abused: No Physically Abused: No Sexually Abused: No Housing Instability: Not on file Living Conditions Lives with and daughter Secondhand Smoke Exposure? No Vitals: 03/19/24 1048 BP: 118/81 BP Site: Right Arm BP Postition: Sitting Pulse: 101 SpO2: 100% Weight: 65.6 kg (144 lb 9.6 oz) Height: 155 cm (5' 1.02 ) On examination I found a well appearing female in no respiratory distress.she was alert and oriented. Mucous membranes were pink and moist.she was anicteric and acyanotic echcoardiogram of a female fetus who parents have named Ashleigh, demonstrated normal intracardiac anatomy. The cardiac index is on the upper limit of normal, slightly more left axis than average. .There was normal atrioventricular coupling with normal heart rate.The cardiothoracic was normal index. There was normal right left shunting the patent foremen ovale as well as a patent ductus arteriosus. Both the left-sided ductal as well as the left sided aortic arch were widely patent with laminar flow. Inferior vena cava, superior vena cava, umbilical artery and umbilical vein as well as ductus venosus Doppler flow patterns were all normal. We visualized 2 normal unobstructed pulmonary veins entering into the left atrium. Of note small septal defects, minor valve abnormalities and post jeanine development of coarctation may not be evident during cardiac examination. There is a small anterior pericardial effusion. My impression is that Mrs. Comfort Maldonado is a 28 y.o. female who is currently 24 weeks gestation with a female fetus who today demonstrated normal intracardiac anatomy with normal myocardial function. I agree that the cardiac axis is more than average but falls just within the upper limits of normal. With the aid of diagrams I discussed with Mrs. Comfort Maldonado and her the findings and all fetuses must have have to remain alive in utero: Foremen ovale and a ductus arteriosus. I discussed foremen ovale patent (patent foremen ovale) is found in 30% of the normal population is not clinically significant especially if there is no family history of hypercoagulable state. Therefore in the absence of any hypercoagulable state or right to left shunting this patent foramen ovale does not need to be closed. With respect to the ductus arteriosus if it remains patent (patent ductus arteriosus) the management will depend on the size: If it is large it will cause left heart failure and will require either surgical closure or cardiac catheterization depending on her age and size. If it remains present and is small then it can be closed electively by cardiac catheterization when she gets older. I however emphasized that the majority ductus arteriosus close within 1st weeks of life. I also explained that we do monitor all PDAs even if they are small and are not causing any congestive heart failure to ensure that if and when it closes, coarctation of the aorta does not develop. Certainly respect to the small anterior pericardial effusion there is no evidence of myocardial dysfunction and there is normal sinus rhythm. There is trivial intermittent tricuspid valve regurgitation which is not clinically significant. The right ventricle qualitatively is not dilated. Based on today's echocardiogram I do not see any contraindication for delivery to occur in an outside facility. Since small septal defects, minor valve abnormalities and post jeanine development of coarctation may not be evident during cardiac examination I do recommend post echocardiogram which does not neccessarily need to be done while admitted to hospital but can be done in office at approximately 1 week of life. If there is a cardiac concern before discharge it is reasonable to do one at that time. I do not recommend an echocardiogram in the first 24 hours of life as all neonates require time to transition physiologically in the first 24 hours of life. Since they live in [place] , it was appropriate for her to have her echocardiogram as Isabela since I do cover pediatric cardiology that hospital: [facility] Time spent with Mrs. Comfort Hopper and her was 95 minutes, 50% or more was face to face interaction coordinating care and discussing pathophysiology and management.This time included time spent preparing for the visit, obtaining and reviewing any outside history/data, taking a history, performing an exam/evaluation, counseling and educating the patient/family about the diagnosis and plan, performing medical decision making, referring to and communicating with other health care referrals, independently interpreting results and documenting in the EMR, and coordinating care Thank you so much for allowing me to participate in Mrs Maldonado's care .Please feel free to contact me if you have any queries or concerns. Sincerely, Yadira Chau M.D. [employer] [facility] This note is dictated with the use of M*Modal.Please note that this dictation was completed with computer voice recognition software. Quite often unanticipated grammatical, syntax, homophones, and other interpretive errors are inadvertently transcribed by the computer software. Please disregard these errors. Please excuse any errors that have escaped final proofreading. documented in this encounter [facility] 02-29-2024 History of Presen t illness Narrative [facility] Follow Up Visit CHIEF COMPLAINT: Chief Complaint Patient presents with Follow-up Patient is here for a follow up and denies any issues HISTORY OF PRESENT ILLNESS: Last seen : 11/30/2023 Interval history / Interim evaluation: 28-year-old, with complex Crohn's of the small and large bowel, status post I see resection, with temporary colostomy after she had sacral abscess and enterocutaneous fistula. Her last surgery was in 2019, she had been on infliximab when she was put on Renflexis. I reviewed her last surgical note, from Sep 29, 2020, where she was better on Remicade It states that her last colonoscopy in flexible sigmoidoscopy follow-ups were in 2018 in 2020 at [facility]. He really has not seen Dr. Hooks in a couple years, and otherwise she is doing well, with no obvious fistulas. Most recently she has then replacing vitamin-D and B12. She has been on infliximab for about 3 years at this point, and her most recent CT showed cystic masses in the pelvis, right hydronephrosis, cholelithiasis, a dilated right ureter, but no significant mentioned if small-bowel disease. I see that there were images from sigmoidoscopy in colonoscopy back in 2020, but I do not have those reports or photos. Crohn's is not active at this time, with no abdominal pain or diarrhea her weight is stable as expected, slight gained 11 lb at 21 weeks and ultrasound shows baby size is as expected. Have reviewed the sigmoidoscopy, and then operative report from July of 2020, noting that he had laparotomy with lysis of adhesions, takedown of end ileostomy with ileocolonic anastomosis, and then takedown of the loop colostomy with some bowel resection and colocolonic reanastomosis. She is also taking a vitamin at this time, as well as her B12 and vitamin-D supplements these were prescribed by her Ob at that time. REVIEW OF SYSTEMS: Review of Systems ALLERGIES: Patient has no known allergies. Current Medications: Current Outpatient Medications: cholecalciferol, vitamin D3, 25 mcg (1,000 unit) tablet,chewable, Chew and swallow daily., Disp: , Rfl: inFLIXimab-axxq (AVSOLA) 100 mg injection, Infuse 5 mg/kg into a venous catheter every 60 (sixty) days., Disp: , Rfl: vit37/iron/folic acid (PRENATA ORAL), Take by mouth daily., Disp: , Rfl: cyanocobalamin, vitamin B-12, 2,500 mcg tablet, sublingual, Place 1 tablet under the tongue once daily. (Patient not taking: Reported on 02/29/2024), Disp: , Rfl: ondansetron ODT (ZOFRAN ODT) 4 mg disintegrating tablet, Dissolve 1 tablet (4 mg total) on tongue every 8 (eight) hours as needed for nausea for up to 10 doses. (Patient not taking: Reported on 02/20/2024), Disp: 10 tablet, Rfl: 0 tiZANidine (ZANAFLEX) 4 mg tablet, Take 1 tablet (4 mg total) by mouth 2 (two) times a day as needed. (Patient not taking: Reported on 02/20/2024), Disp: , Rfl: I reviewed and reconciled this patient's medication list today. The list included in this note is the most up to date list that I can attest to at this time based on the information that the patient has provided me and the electronic medical record. PAST MEDICAL, SOCIAL AND FAMILY HISTORY: Past Medical History: Past Medical History: Diagnosis Date Crohn's colitis ([facility]) Fibromyalgia, primary Herpes Ovarian cyst Past Surgical History: Past Surgical History: Procedure Laterality Date SECTION COLON SURGERY 10/21/2019 COLOSTOMY FLEXIBLE SIGMOIDOSCOPY N/A 08/06/2020 Performed by Efe Hooks MD at [facility] FLEXIBLE SIGMOIDOSCOPY N/A 04/17/2020 Performed by Efe Hooks MD at [facility] ILEOCECECTOMY, LOOP COLOSTOMY, DRAINAGE OF PELVIC ABSCESS, OMENTAL FLAP, END ILEOSTOMY, WOUND VAC APPLICATION, DEBRIDEMENT OF SACRAL AND GLUTEAL WOUND N/A 10/24/2019 Performed by Efe Hooks MD at [facility] ILEOSTOMY LAPAROTOMY EXPLORATORY/TAKEDOWN SPLENIC FLEXURE N/A 08/06/2020 Performed by Efe oHoks MD at [facility] RESECTION SMALL BOWEL/ SEGMENTAL BOWEL RESECTION N/A 08/06/2020 Performed by Efe Hooks MD at [facility] TAKE DOWN COLOSTOMY N/A 08/06/2020 Performed by Efe Hooks MD at [facility] TAKEDOWN ILEOSTOMY N/A 08/06/2020 Performed by Efe Hooks MD at [facility] SOCIAL HISTORY: Social History Tobacco Use Smoking status: Never Smokeless tobacco: Never Vaping Use Vaping status: Never Used Substance Use Topics Alcohol use: Not Currently Alcohol/week: 2.0 standard drinks of alcohol Types: 2 Glasses of wine per week Comment: socially Drug use: Not Currently Types: Marijuana Comment: daily PHYSICAL EXAM: BP 110/70 Ht 154.9 cm (5' 1 ) Wt 63 kg (139 lb) LMP 10/03/2023 (Exact Date) BMI 26.26 kg/m Body mass index is 26.26 kg/m . Wt Readings from Last 7 Encounters: 02/29/24 63 kg (139 lb) 02/20/24 61.8 kg (136 lb 3.9 oz) 02/14/24 61.7 kg (136 lb) 12/20/23 58.6 kg (129 lb 3.2 oz) 11/30/23 59.4 kg (131 lb) 10/25/23 60.8 kg (134 lb) 08/30/23 63.3 kg (139 lb 9.6 oz) Physical Exam RADIOLOGICAL DATA: US MFM with or without consult Result Date: 02/20/2024 Narrative: ------ OBSTETRICS REPORT (Signed Final 02/20/2024 14:24) ------ PATIENT INFO: ID #: [id number] : [birth year] (28 yrs)(F) Name: COMFORT BUSH Visit Date: 02/20/2024 10:32 QUENTIN ------ PERFORMED BY: Attending: Mayco Roman MD Performed By: Fannie Feliciano RDMS Referred By: Art Horan DO Ref. Address: [address] [place] [address] [place] [address] Location: [facility] ------ SERVICE(S) PROVIDED: Comprehensive Anatomic Survey 80744 Echocardiogram-complete 66186 OB Transvaginal 59344 ------ INDICATIONS: Screening for anatomic survey Z36.89 Screening for congenital cardiac abnormality Z36.83 Screening for cervical length Z36.86 Supervision of other high risk , O09.90 antepartum: Chron's disease with Hx of bowel resection / Levo position of heart Prior O34.21 ------ VITAL SIGNS: Weight (lb): 136 Height: 5'1 BMI: 25.69 ------ EVALUATION: Num Of Fetuses: 1 Heart Rate(bpm): 148 Cardiac Activity: Present & appears normal Presentation: Variable Placenta: Anterior, away from cervical os P. Cord Insertion: Eccentric (>2cm from edge) Amniotic Fluid ANJELICA FV: Subjectively within normal limits ------ BIOMETRY: BPD: 43.9 mm G.Age: 19w 2d 21 % OFD: 56.2 mm HC: 160.5 mm G.Age: 18w 6d 5 % AC: 145.1 mm G.Age: 19w 6d 38 % FL: 33.5 mm G.Age: 20w 3d 61 % HUM: 32.5 mm G.Age: 20w 6d 78 % CER: 20.9 mm G.Age: 20w 0d 60 % NFT: 3.62 mm NB: 6.09 mm 32 % > 1 MoM LV: 6.4 mm CM: 2.9 mm TIB: 26.5 mm G.Age: 19w 4d 44 % CI: 78.1 % 70 - 86 FL/HC: 20.9 % 16.8 - 19.8 HC/AC: 1.11 1.09 - 1.39 FL/BPD: 76.3 % FL/AC: 23.1 % 20 - 24 Est. FW: 325 gm 0 lb 11 oz 44 % ------ OB HISTORY: : 2 Term: 1 Livin ------ GESTATIONAL AGE: LMP: 20w 0d Date: 10/03/23 EBEN: 07/09/24 U/S Today: 19w 4d EBEN: 07/12/24 Best: 20w 0d Det. By: LMP (10/03/23) EBEN: 07/09/24 ------ TARGETED ANATOMY: Central Nervous System Calvarium/Cranial V.: Appears normal Intracranial Tegan: Appears normal Cavum: Appears normal Lateral Ventricles: Appears normal Choroid Plexus: Appears normal Cereb./Vermis: Appears normal Cisterna Magna: Appears normal Midline Falx: Appears Normal Spine Cervical: Could not document Thoracic: Could not document Lumbar: Could not document Sacral: Could not document Head/Neck Face: Appears normal Lips: Appears normal Neck: Appears normal Nuchal Fold: Appears normal Nasal Bone: Present Profile: Appears normal Orbits/Eyes: Appears normal Mandible: Appears Normal Maxilla: Appears normal Thorax Thoracic Contour: Appears normal Lungs: Appears normal 4 Chamber View: Abnormal, see bel Cardiac Activity: Appears Normal Cardiac Rhythm: Normal Cardiac Situs: Appears normal Rt Outflow Tract: Appears normal Lt Outflow Tract: Appears normal Aortic Arch: Appears normal Ductal Arch: Appears normal SVC: Appears Normal Interventr. Septum: Appears Normal Cardiac [place]: Appears normal Diaphragm: Could not document 3 Vessel View: Appears normal 3 V Trachea View: Appears Normal IVC: Appears normal Abdomen Ventral Wall: Appears normal Cord Insertion: Appears normal Situs: Appears normal Stomach: Appears normal Liver: Appears normal Lt Kidney: Appears normal Rt Kidney: Appears normal Bladder: Appears normal Extremities Lt Humerus: Appears normal Rt Humerus: Appears normal Lt Forearm: Appears normal Rt Forearm: Appears normal Lt Hand: Appears normal Rt Hand: Appears normal Lt Femur: Appears normal Rt Femur: Appears normal Lt Lower Leg: Appears normal Rt Lower Leg: Appears normal Lt Foot: Appears normal Rt Foot: Appears normal Other Umbilical Cord: Appears normal Genitalia: Female ------ CERVIX UTERUS ADNEXA: Cervix Length: 3 cm. Appears closed, without funnelling Uterus Gravid uterus Right Ovary Not visualized due to overlying bowel Left Ovary Not visualized due to overlying bowel Cul De Sac No fluid seen Adnexa No adnexal masses identified ------ COMMENTS: 1. Ultrasound is not diagnostic for chromosomal abnormalities, will not detect all structural abnormalities, and is not diagnostic for genetic disorders even if multiple exams are performed during a given . 2. In addition to the trans abdominal approach, a trans vaginal ultrasound was also performed to optimize the visualization of the lower uterine segment and the cervix. 3. anatomic survey is incomplete due to position. ------ ------ Mayco Roman MD Electronically Signed Final Report 02/20/2024 14:24 ------ Impression: IMPRESSION: 1. Single intrauterine with size consistent with dates. 2. 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 3. heart echo did not reveal sonographic evidence of any other gross structural abnormalities. 4. Transvaginal Cervical Length = 3 cm. ------ RECOMMENDATIONS: 1. Please see M consultation documentation from today's encounter. 2. Patient is scheduled in four weeks to complete the anatomic survey. 3. Subsequent follow up or other follow up as clinically determined by primary OB provider unless otherwise specified by MFM. 4. Results forwarded to ordering provider so they can follow up with the patient as necessary. DATA: CBC: Lab Results Component Value Date WBC 7.4 12/11/2023 HGB 14.2 12/11/2023 HCT 40.5 12/11/2023 MCV 87 12/11/2023 RDW 13.3 12/11/2023 PLT 254 12/11/2023 CMP: Lab Results Component Value Date K 4.1 12/11/2023 CL 104 12/11/2023 CO2 23 12/11/2023 BUN 6 12/11/2023 GLU 92 12/11/2023 GLU 91 10/29/2019 Iron Studies: Lab Results Component Value Date IRON 149 01/07/2021 TIBC 438 (H) 01/07/2021 PT/INR: No results found for: INR , PROTIME VITAMIN B12: Lab Results Component Value Date [id number] 142 (L) 12/11/2023 FOLATE: No results found for: FOLATE LIPASE: No results found for: LIPA DIAGNOSTIC STUDIES REVIEWED: As noted in the HPI Patient Care Team: Sean Abraham MD as PCP - General (Family Medicine) Suresh Diaz MD as Consulting Physician (Gastroenterology) Efe Hooks MD as Referring Physician (General Surgery) ASSESSMENT AND PLAN: At this point, it sounds like her Crohn's is under excellent control, although she still has a planned , unlikely has adhesions from her prior surgeries, and therefore with a the 1st time, certainly that appears to be her only real option. There was no sign of any flares, but she should contact us if any occurs in the meantime, will certainly continue her medication regularly, as she is due in March now for her infusion. For now continue the vitamin supplements,. Comfort was seen today for follow-up. Diagnoses and all orders for this visit: Crohn's disease of both small and large intestine with intestinal obstruction ([facility]) Vitamin D deficiency B12 deficiency Thank you for allowing me to participate in this pleasant patient s care. This note was created with the assistance of a speech-recognition program. While intending to generate a timely document that accurately reflects the content of the visit, no guarantee can be provided that every grammatical or spelling mistake has been or will be identified or corrected. Thank you for your understanding. Suresh Glass MD, MPH [facility] [place] [address] PH: [phone] documented in this encounter [facility] 02-20-2024 Miscellaneous Notes Attempted to contact [facility] ([place]) per Dr. Roman's request. No answer. LVM requesting return call regarding patient POC and delivery planning due to recommendation for surgery backup at time of c/s. documented in this encounter [facility] 02-20-2024 Telephone encounter Note Attempted to contact [facility] ([place]) per Dr. Roman's request. No answer. LVM requesting return call regarding patient POC and delivery planning due to recommendation for surgery backup at time of c/s. [facility] 02-20-2024 History of Presen t illness Narrative Headache/epigastric pain/blurry vision/swelling? No Cramping/contractions? No Abnormal vaginal discharge? No Spotting/vaginal bleeding? No Loss or gush of fluid like your water may have broken? No Do you have cats at home? No Do you change the litter box (reason: risk of toxoplasmosis)? N/A Genetic testing done this here or other office? No Have you been seen here at [facility] in a previous ? No Recent ER visits or hospitalizations? No Bring blood sugar log or meter with you today? (Please bring them with you for every visit at [facility]) N/A Flu vaccine (May-September)? N/A Traveled outside the country in the past 6 months? No Any concerns that you would like me to mention to the provider today? No REASON FOR CONSULTATION: Complex Crohn's disease. HISTORY OF PRESENT ILLNESS: Comfort Maldonado is a pleasant 28 y.o. G 2 P1 001. at 20w0d due on Estimated Date of Delivery: 07/09/24 . Patient was seen today due to the following 1. Complex Crohn's disease that has required multiple surgical interventions. This includes ex lap/takedown end ileostomy with small bowel resection and ileocolonic anastomosis/takedown of loop colostomy with large bowel resection and colocolonic anastomosis/takedown splenic flexure/incisional wound VAC application. Patient initially started with complex Crohn's disease that led to complicated bowel involvement. Colorectal surgery ( Dr. Hooks) was involved at [facility] and the patient underwent ileocecectomy with end ileostomy and diverting loop colostomy and debridement of her back due to complicated Crohn's disease with a large pelvic abscess draining in her back through a fistula communicating through the soft tissues lateral to the sacrum to the skin in the area near the distal lumbar spine and the sacrum. Surgery was on 10/24/2019. She also had a very tight stricture in the distal rectum secondary to Crohn's disease that has required sigmoidsopy. Patient Crohn's disease is stable currently on IV infusion of Remicade. 2. 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 Limited but normal cardiac anatomy and echocardiography was seen. Patient will be referred to pediatric Cardiology. Currently the patient has no complaints. The patient denies nausea, vomiting, abdominal pain, vaginal bleeding, SOB or chest pain. Patient's PMH/PSH,SH,PSYCH Hx, MEDs, ALLERGIES, and ROS were all reviewed and updated in the appropriate sections. Patient Active Problem List Diagnosis Abdominal fistula Sacral wound Primary hydronephrosis Crohn's disease of both small and large intestine with intestinal obstruction (CMS-HCC) Ileostomy status (CMS-HCC) Colostomy status (CMS-HCC) Rectal stricture Crohn's disease of small and large intestines with complication (CMS-HCC) Cyst of right ovary Past Medical History: Diagnosis Date Crohn's colitis (CMS-HCC) Fibromyalgia, primary Herpes Ovarian cyst PAST OBSTETRICAL HISTORY: OB History 2 Para 1 Term 1 AB Living 1 SAB IAB Ectopic Multiple Live Births 1 SURGICAL HISTORY: Past Surgical History: Procedure Laterality Date SECTION COLON SURGERY 10/21/2019 COLOSTOMY FLEXIBLE SIGMOIDOSCOPY N/A 08/06/2020 Performed by Efe Hooks MD at [facility] FLEXIBLE SIGMOIDOSCOPY N/A 04/17/2020 Performed by Efe Hooks MD at [facility] ENDOSCOPY ILEOCECECTOMY, LOOP COLOSTOMY, DRAINAGE OF PELVIC ABSCESS, OMENTAL FLAP, END ILEOSTOMY, WOUND VAC APPLICATION, DEBRIDEMENT OF SACRAL AND GLUTEAL WOUND N/A 10/24/2019 Performed by Efe Hooks MD at [facility] ILEOSTOMY LAPAROTOMY EXPLORATORY/TAKEDOWN SPLENIC FLEXURE N/A 08/06/2020 Performed by Efe Hooks MD at [facility] RESECTION SMALL BOWEL/ SEGMENTAL BOWEL RESECTION N/A 08/06/2020 Performed by Efe Hooks MD at [facility] TAKE DOWN COLOSTOMY N/A 08/06/2020 Performed by Efe Hooks MD at [facility] TAKEDOWN ILEOSTOMY N/A 08/06/2020 Performed by Efe Hooks MD at [facility] ALLERGIES: No Known Allergies CURRENT MEDICATIONS: Current Outpatient Medications: cholecalciferol, vitamin D3, 25 mcg (1,000 unit) tablet,chewable, Chew and swallow daily., Disp: , Rfl: cyanocobalamin, vitamin B-12, 2,500 mcg tablet, sublingual, Place 1 tablet under the tongue once daily., Disp: , Rfl: inFLIXimab-axxq (AVSOLA) 100 mg injection, Infuse 5 mg/kg into a venous catheter every 60 (sixty) days., Disp: , Rfl: vit37/iron/folic acid (PRENATA ORAL), Take by mouth daily., Disp: , Rfl: ondansetron ODT (ZOFRAN ODT) 4 mg disintegrating tablet, Dissolve 1 tablet (4 mg total) on tongue every 8 (eight) hours as needed for nausea for up to 10 doses. (Patient not taking: Reported on 02/20/2024), Disp: 10 tablet, Rfl: 0 tiZANidine (ZANAFLEX) 4 mg tablet, Take 1 tablet (4 mg total) by mouth 2 (two) times a day as needed. (Patient not taking: Reported on 02/20/2024), Disp: , Rfl: FAMILY/GENETIC HISTORY: No family history of VTE, cardiac defects and mental retardation . SOCIAL HISTORY:Patient denies tobacco use, alcohol use, or drug use. RECENT HOSPITALIZATION: none I did review all the labs results available in addition to labs which were ordered by the primary care physician, and the other consultants, we search on [employer] and all the available care everywhere epic I did review all the imaging studies of the patient available on EMR, ordered by the primary care physician and the other advanced manufacturing consultant HABITS: Patient activity no restrictions, diet no restrictions REVIEW OF SYSTEM: Head and Neck: Negative for any dizziness and headaches. Cardiovascular and Respiratory System: Denies any chest pain, shortness of breath, and coughing. Abdominal and System: Denies any abdominal pain, nausea, vomiting, vaginal bleeding, and vaginal discharge Social Determinants of Health Financial Resource Strain: n Food Insecurity: n Transportation Needs: n Physical Activity: y Social Connections: y Intimate Partner Violence: n Housing Stability: y PHYSICAL EXAMINATION: BP 106/63 Pulse 92 Wt 61.8 kg (136 lb 3.9 oz) LMP 10/03/2023 (Exact Date) BMI 25.74 kg/m . Gravid abdomen, Respirations not labored. Well oriented time place person, normal gait MEDICAL DECISION MAKING DISCUSSION: Crohn disease is an idiopathic, chronic inflammatory process that can affect any part of the gastrointestinal tract from the mouth to the rectum. Individuals with this condition often experience periods of symptomatic relapse and remission. Medications used in the treatment of Crohn disease include 5-Aminosalicylic acid derivative agents (eg, mesalamine rectal, mesalamine, sulfasalazine, balsalazide ,Corticosteroids OR moclonal antibodies such as infliximab. Goal of management is no active disease flare-up during . Therefore the patient should continue her Remicade through the whole and . For acute flares patient can be given oral high dose corticosteroids or steroid enemas. should be continue with targeted anatomy with dedicated echocardiography at [facility] office. Serial growth ultrasounds every 4 weeks after OB office. Patient is high risk for developing anemia and therefore anemic workup between 28-32 weeks gestation is suggested. InCase of anemia patient will be a candidate for IV iron. Due to complicated multiple abdominal surgeries patient is extremely high risk to have abdominal adhesions and therefore we would recommend to have surgery backup at the time of . We further discussed abnormal axis of the heart. This will need to be evaluated. Referral to Pediatric Cardiology was done today. RECOMMENDATION: 1. Abnormal cardiac axis on the heart. Structurally normal looking heart. 2. Referral to Pediatric Cardiology for formal evaluation. 3. Normal but limited targeted Anatomy seen on today's ultrasound. 4. Follow-up in 4 weeks for completion of targeted anatomy. 5. Serial growth ultrasounds every 4 weeks after 24 weeks gestation at her OB office. 6. Patient increased risk for developing anemia and therefore will be a candidate for IV iron in case 28 week labs shows anemia. 7. Initiate testing starting at 32 weeks gestation at her OB office. 8. Delivery at 39 weeks gestation via repeat . 9. Anticipate complex adhesions due to multiple abdominal surgeries from Crohn's disease. We would suggest to have a surgery backup at the time of . 10. Continue Remicade through the whole and . 11. For acute exacerbation of Crohn's disease patient can receive high-dose corticosteroids orally or locally. DISPOSITION: At this point the patient is in complete care of her rehabilitation psychologist. Patient does have ultrasound office visit scheduled with us. Thank you for allowing me to participate in Comfort Maldonado . If there any questions please do not hesitate to contact us. Sincerely, MAYCO ROMAN MD documented in this encounter [employer] 02-14-2024 History of Presen t illness Narrative IV Infusion START time: 09 Patient here for Remicade infusion. Patient denies any recent infections, open wounds, recent/future surgery, or insurance changes. IV started with 22g needle to Right FA by Renuka GOMEZ RN x1 attempt. Patient tolerated well. Remicade Lot# [id number] - 200mg Exp- 08/27/2026 Lot# [id number] - 100mg Exp- 08/27/2026 Time out performed prior to medication administration. Name, , medication(s) verified Patient wt 61.7kg Remicade 5mg/kg 5mg x 61.7kg = 308.5 Patient given 300mg Remicade IV Infusion END time: 1132 patient infusion complete. IV discontinued, catheter intact, vitals WNL. Patient tolerated infusion well [facility] History of Presen t illness Narrative IV Infusion start time: 0908. Patient here for Remicade infusion. Patient denies any recent infections or on antibiotics, open wounds, recent/future surgery, vaccinations or insurance changes. IV started with 22g needle to right AC by JAIRO Oh x1 attempt. Patient tolerated well. Remicade x 3 vials Lot# [id number] Exp- 07/30/2026 Time out performed prior to medication administration. Name, , medication(s) verified Time out performed @ 0930 with JAIRO Oh. 300 mg of Remicade to be mixed and administered to patient per current treatment plan orders. 1135 patient infusion complete. IV discontinued, catheter intact, vitals WNL. Patient tolerated infusion well Patient due for their Tuberculosis lab draw; order printed and given to patient. Instructed patient to have drawn; patient verbalized understanding of info given. [facility]-12-2023 Miscellaneous Notes Regarding: Test Results- B12 and Vitamin D Contact: ----- Message from Adelaida Timmons RN sent at 12/12/2023 11:10 AM EDT ----- From recent labs ----- Message from Comfort Maldonado to Suresh Diaz MD sent at 12/12/2023 8:30 AM ----- Teodora, I received your message about my test results. I ll be starting on 2500mcg of B12 and 125mcg of vitamin D. That is sounds reasonable documented in this encounter [facility] 12-12-2023 Telephone encounter Note Regarding: Test Results- B12 and Vitamin D Contact: ----- Message from Adelaida Timmons RN sent at 12/12/2023 11:10 AM EDT ----- From recent labs ----- Message from Comfort Maldonado to Suresh Diaz MD sent at 12/12/2023 8:30 AM ----- Teodora, I received your message about my test results. I ll be starting on 2500mcg of B12 and 125mcg of vitamin D. [facility] 12-12-2023 Telephone encounter Note That is sounds reasonable [facility] 11-30-2023 History of Presen t illness Narrative [facility] Follow Up Visit CHIEF COMPLAINT: Chief Complaint Patient presents with Follow-up Patient is here for follow up. She denies any issues at this time. She just found out she is about 8wks along. HISTORY OF PRESENT ILLNESS: Last seen : 07/05/2022 Interval history / Interim evaluation: 28-year-old, who I have not seen for 2 years, complex Crohn's of the small and large bowel, status post I see resection, with temporary colostomy after she had sacral abscess and enterocutaneous fistula. Her last surgery was in 2019, she had been on infliximab when she was put on Renflexis. I reviewed her last surgical note, from Sep 29, 2020, where she was better on Remicade It states that her last colonoscopy in flexible sigmoidoscopy follow-ups were in 2018 in 2020 at [facility]. He really has not seen Dr. Hooks in a couple years, and otherwise she is doing well, with no obvious fistulas, and the bowels are working order. She has 1 or 2 generally formed stools a day. That really has any abdominal pain, with no blood in the stool. She has had some recent nausea and upset stomach, since she is at about 8 weeks at this point. Her weight is been stable with minimal fluctuation. Does not seem to have any symptoms of the rectal stricture with normal caliber stools, and no trouble with delivery. She is already taking the vitamin at this point. We will however check her vitamin-D and B12 levels, and her there is activity of the disease, and blood count, to make sure that she has not anemic at this point, only in case there is any iron malabsorption. REVIEW OF SYSTEMS: Review of Systems Gastrointestinal: Positive for abdominal pain. All other systems reviewed and are negative. ALLERGIES: Patient has no known allergies. Current Medications: Current Outpatient Medications: ondansetron ODT (ZOFRAN ODT) 4 mg disintegrating tablet, Dissolve 1 tablet (4 mg total) on tongue every 8 (eight) hours as needed for nausea for up to 10 doses., Disp: 10 tablet, Rfl: 0 vit37/iron/folic acid (PRENATA ORAL), Take by mouth daily., Disp: , Rfl: benzonatate (TESSALON PERLES) 100 mg capsule, Take 1 capsule (100 mg total) by mouth 3 (three) times a day as needed for cough. (Patient not taking: Reported on 10/25/2023), Disp: 21 capsule, Rfl: 0 cholecalciferol, vitamin D3, 25 mcg (1,000 unit) tablet,chewable, Chew and swallow daily. (Patient not taking: Reported on 11/30/2023), Disp: , Rfl: cyanocobalamin, vitamin B-12, 2,500 mcg tablet, sublingual, Place 1 tablet under the tongue once daily. (Patient not taking: Reported on 11/30/2023), Disp: , Rfl: inFLIXimab-abda (RENFLEXIS) 100 mg injection, Infuse 5 mg/kg into a venous catheter once. (Patient not taking: Reported on 05/10/2023), Disp: , Rfl: inFLIXimab-axxq (AVSOLA) 100 mg injection, Infuse 5 mg/kg into a venous catheter every 60 (sixty) days. (Patient not taking: Reported on 11/30/2023), Disp: , Rfl: tiZANidine (ZANAFLEX) 4 mg tablet, Take 4 mg by mouth as needed in the morning and 4 mg as needed in the evening. (Patient not taking: Reported on 11/11/2021), Disp: , Rfl: I reviewed and reconciled this patient's medication list today. The list included in this note is the most up to date list that I can attest to at this time based on the information that the patient has provided me and the electronic medical record. PAST MEDICAL, SOCIAL AND FAMILY HISTORY: Past Medical History: Past Medical History: Diagnosis Date Crohn's colitis ([facility]) Fibromyalgia, primary Herpes Past Surgical History: Past Surgical History: Procedure Laterality Date SECTION COLON SURGERY 10/21/2019 COLOSTOMY FLEXIBLE SIGMOIDOSCOPY N/A 08/06/2020 Performed by Efe Hooks MD at [facility] FLEXIBLE SIGMOIDOSCOPY N/A 04/17/2020 Performed by Efe Hooks MD at [facility] ENDOSCOPY ILEOCECECTOMY, LOOP COLOSTOMY, DRAINAGE OF PELVIC ABSCESS, OMENTAL FLAP, END ILEOSTOMY, WOUND VAC APPLICATION, DEBRIDEMENT OF SACRAL AND GLUTEAL WOUND N/A 10/24/2019 Performed by Efe Hooks MD at [facility] ILEOSTOMY LAPAROTOMY EXPLORATORY/TAKEDOWN SPLENIC FLEXURE N/A 08/06/2020 Performed by Efe Hooks MD at [facility] RESECTION SMALL BOWEL/ SEGMENTAL BOWEL RESECTION N/A 08/06/2020 Performed by Efe Hooks MD at [facility] TAKE DOWN COLOSTOMY N/A 08/06/2020 Performed by Efe Hooks MD at [facility] TAKEDOWN ILEOSTOMY N/A 08/06/2020 Performed by Efe Hooks MD at [facility] SOCIAL HISTORY: Social History Tobacco Use Smoking status: Never Smokeless tobacco: Never Vaping Use Vaping status: Never Used Substance Use Topics Alcohol use: Not Currently Alcohol/week: 2.0 standard drinks of alcohol Types: 2 Glasses of wine per week Comment: socially Drug use: Yes Types: Marijuana Comment: daily PHYSICAL EXAM: BP 120/80 Ht 154.9 cm (5' 1 ) Wt 59.4 kg (131 lb) BMI 24.75 kg/m Body mass index is 24.75 kg/m . Wt Readings from Last 7 Encounters: 11/30/23 59.4 kg (131 lb) 10/25/23 60.8 kg (134 lb) 08/30/23 63.3 kg (139 lb 9.6 oz) 07/05/23 65.3 kg (144 lb) 05/10/23 63.4 kg (139 lb 12.8 oz) 03/15/23 67.9 kg (149 lb 12.8 oz) 01/18/23 68.1 kg (150 lb 3.2 oz) Physical Exam Vitals reviewed. Exam conducted with a wire wheeler present (When appropriate). Constitutional: Appearance: Normal appearance. She is normal weight. HENT: Head: Normocephalic and atraumatic. Eyes: Conjunctiva/sclera: Conjunctivae normal. Abdominal: General: Bowel sounds are normal. There is no distension. Palpations: Abdomen is soft. There is no mass. Tenderness: There is no abdominal tenderness. Hernia: No hernia is present. Comments: scars Skin: General: Skin is warm and dry. Neurological: General: No focal deficit present. Mental Status: She is alert and oriented to person, place, and time. Psychiatric: Mood and Affect: Mood normal. Behavior: Behavior normal. RADIOLOGICAL DATA: No results found. DATA: CBC: Lab Results Component Value Date WBC 11.9 (H) 01/07/2021 HGB 13.6 01/07/2021 HCT 40.3 01/07/2021 MCV 88 01/07/2021 RDW 13.1 01/07/2021 PLT 296 01/07/2021 CMP: Lab Results Component Value Date K 4.2 01/07/2021 CL 104 01/07/2021 CO2 26 01/07/2021 BUN 7 01/07/2021 GLU 83 01/07/2021 GLU 91 10/29/2019 Iron Studies: Lab Results Component Value Date IRON 149 01/07/2021 TIBC 438 (H) 01/07/2021 PT/INR: No results found for: INR , PROTIME VITAMIN B12: Lab Results Component Value Date [id number] 179 (L) 01/07/2021 FOLATE: No results found for: FOLATE LIPASE: No results found for: LIPA DIAGNOSTIC STUDIES REVIEWED: As noted in the HPI Patient Care Team: Suresh Diaz MD as Consulting Physician (Gastroenterology) Efe Hooks MD as Referring Physician (General Surgery) ASSESSMENT AND PLAN: Decision making: Essentially it sounds like her Crohn's is under excellent control on the infliximab time, that she has been on for around 3 years at this point, since all her major surgeries, that she completed in late 2020. Therefore will get a inflammatory marker with the CRP, follow-up B12 and vitamin-D levels, especially because she is , and CBC, be sure there has no obvious iron deficiency anemia panel for completeness. She is due to see her OB, next week and she may put those labs together so I will not expect them until a week or so from now for review. Otherwise see her back in 3 months for reassessment. Comfort was seen today for follow-up. Diagnoses and all orders for this visit: Crohn's disease of both small and large intestine with intestinal obstruction (CMS-HCC) Rectal stricture Thank you for allowing me to participate in this pleasant patient s care. This note was created with the assistance of a speech-recognition program. While intending to generate a timely document that accurately reflects the content of the visit, no guarantee can be provided that every grammatical or spelling mistake has been or will be identified or corrected. Thank you for your understanding. Suresh Glass MD, [place] [address] PH: [phone] documented in this encounter [employer] [facility] 10-25-2023 History of Presen t illness Narrative 0900 Patient here for Avsola infusion. Patient denies any recent infections, open wounds, recent/future surgery, or insurance changes . IV started with 22g needle to right AC by paddy gill x 1 attempt . Patient tolerated well. Avsola x 2 vials, lot# [id number], exp date Avsola x 1 vial, lot# [id number], exp date 02/27/2027 Time out performed with [...] of info given. documented in this encounter [facility] 10-24-2023 Miscellaneous Notes Patient currently receiving Avsola 5mg/kg every 8 weeks. 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 Prior auth request forms completed for Remicade 5mg/kg to be given every 56 days, faxed to [phone] Remicade approved for 5mg/kg (400mg) for 7 visits from 10/25/2023-10/23/2024. Auth # [id number] Referral placed. Therapy plan updated. Flowsheet updated. documented in this encounter [facility] 10-24-2023 Telephone encounter Note Patient currently receiving Avsola 5mg/kg every 8 weeks. 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 Prior auth request forms completed for Remicade 5mg/kg to be given every 56 days, faxed to [phone] [facility] 10-24-2023 Telephone encounter Note Remicade approved for 5mg/kg (400mg) for 7 visits from 10/25/2023-10/23/2024. Auth # [id number] Referral placed. Therapy plan updated. Flowsheet updated. [facility] 08-30-2023 History of Presen t illness Narrative 0906 Patient here for Avsola infusion. Patient denies any recent infections, open wounds, recent/future surgery, or insurance changes . Site cleansed with alcohol. IV started with 22g needle by Juan M GILL in right antecube. Patient tolerated well. 1142 patient infusion complete. IV discontinued at 1142. Patient tolerated infusion well. documented in this encounter [facility] Evaluation note Diagnosis 30 weeks gestation of - Primary Third trimester state, incidental [facility] Diagnosis 32 weeks gestation of Third trimester state, incidental [facility] Diagnosis Third trimester state, incidental 34 weeks gestation of [facility] Diagnosis Third trimester state, incidental 35 weeks gestation of Herpes Herpes simplex without mention of complication [facility] Diagnosis 36 weeks gestation of Third trimester state, incidental [facility] Diagnosis 37 weeks gestation of Third trimester state, incidental [facility] Diagnosis Encounter for repeat prescription of oral contraceptives- Primary S/P [facility] Diagnosis 26 weeks gestation of [facility] Diagnosis Crohn's disease of small and large intestines with complication (CMS-HCC)- Primary [facility] Diagnosis Crohn's disease of both small and large intestine with intestinal obstruction (CMS-HCC)- Primary Rectal stricture Stenosis of rectum and anus [facility] Diagnosis Crohn's disease of small and large intestines with complication (CMS-HCC)- [facility] Diagnosis Crohn's disease of small and large intestines with complication (CMS-HCC)- Primary [facility] Diagnosis Abnormal ultrasound- Primary Maternal Crohn's disease affecting in second trimester (CMS-HCC) [facility] Diagnosis 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- Primary Crohn's disease of both small and large intestine with intestinal obstruction (CMS-HCC) Rectal stricture Stenosis of rectum and anus [facility] Diagnosis Crohn's disease of both small and large intestine with intestinal obstruction (CMS-HCC)- Primary Vitamin D deficiency B12 deficiency [facility] Diagnosis Anomaly of heart of fetus affecting , antepartum, single or unspecified fetus- Primary 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 affecting , antepartum, single or unspecified fetus [facility] Diagnosis Maternal Crohn's disease affecting in second trimester (CMS-HCC)- Primary affected by growth restriction [facility] Diagnosis Crohn's disease of small and large intestines with complication (CMS-HCC)- Primary [facility] Diagnosis Crohn's disease of both small and large intestine with intestinal obstruction (CMS-HCC)- Primary [facility] Diagnosis Maternal Crohn's disease affecting in third trimester (CMS-HCC)- Primary 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 affected by growth restriction Abnormal ultrasound [facility] Diagnosis Crohn's disease of both small and large intestine with intestinal obstruction (CMS-HCC)- Primary growth restriction antepartum growth restriction antepartum- Primary [facility] Diagnosis Crohn's disease of both small and large intestine with intestinal obstruction (CMS-HCC)- Primary growth restriction antepartum [facility] Diagnosis growth restriction antepartum- Primary Crohn's disease of both small and large intestine with intestinal obstruction (CMS-HCC) 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 [facility] Diagnosis Crohn's disease of both small and large intestine with intestinal obstruction (CMS-HCC)- Primary [facility] Diagnosis Crohn's disease of both small and large intestine with intestinal obstruction (CMS-HCC)- Primary Rectal stricture Stenosis of rectum and anus B12 deficiency Vitamin D deficiency [facility] Diagnosis Crohn's disease of small and large intestines with complication (CMS-HCC)- Primary [facility] Diagnosis Menorrhagia with regular cycle PCOS (polycystic ovarian syndrome) Polycystic ovaries [facility] filedocumented in this encounter[facility] System[facility]ructionsNot on filedocumented in this encounter[facility]ructionsNot on filedocumented in this encounter[facility] Hospital[facility]ructionsNot on filedocumented in this [facility] InstructionsNot on filedocumented in this [facility] InstructionsNot on filedocumented in this [facility] InstructionsNot on filedocumented in this [facility] InstructionsNot on filedocumented in this [facility] InstructionsNot on filedocumented in this [facility] InstructionsNot on filedocumented in this encounterCleveland Clinic SystemReason for referral (narrative)* Consultation (Routine) - Pending Review Specialty Diagnoses / Procedures Referred By Theodore t Referred To Contact Pediatric Cardiology Diagnoses 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 Mayco Roman MD [address] [place] [address] Yadira Chau MD [address] [address] Referral ID Status Reason Start Date Expiration Date Visits Requested Visits Authorized [id number] Pending Review Specialty Services Required 02/20/2024 02/19/2025 1 1 [facility] Summary Purpose Family History No Family History Records FoundNo Family History Records FoundNo Family History Records FoundNo Family History Records FoundNo Family History Records FoundNo Family History Records FoundNo Family History Records FoundNo Family History Records Found Advance Directives Date Activated Date Inactivated Comments 08/06/2020 1:34 PM 08/12/2020 7:54 PM Latest Code Status on File Code Status Date Activated Date Inactivated Comments Full Code 08/06/2020 1:34 PM 08/12/2020 7:54 PM Date Activated Date Inactivated Comments 08/06/2020 1:34 PM 08/12/2020 7:54 PM Reason for Referral Specialty Diagnoses / Procedures Referred By Contac t Referred To Contact Maternal and Medicine Diagnoses Abnormal ultrasound Maternal Crohn's disease affecting in second trimester ([facility]) Procedures [facility] with or without consult Mayco Roman MD [address] [place] [address] [facility] [address] [place] [address] Referral ID Status Reason Start Date Expiration Date V isits Requested Visits Authorized [id number] Pending Review 02/20/2024 02/19/2025 1 1 Specialty Diagnoses / Procedures Referred By Contac t Referred To Contact Diagnoses Anomaly of heart of fetus affecting , antepartum, single or unspecified fetus Procedures echo 2D W/ color flow Yadira Chau MD [address] [address] Referral ID Status Reason Start Date Expiration Date Visits Re quested Visits Authorized [id number] Closed 03/15/2024 03/15/2025 1 1 Specialty Diagnoses / Procedures Referred By Contac t Referred To Contact Maternal and Medicine Diagnoses Maternal Crohn's disease affecting in second trimester ([facility]) affected by growth restriction Procedures US MFM with or without consult Mayco Roman MD [address], [address] [place] [address] [facility] [address] [place] [address] Referral ID Status Reason Start Date Expiration Date V isits Requested Visits Authorized [id number] Pending Review 03/28/2024 03/28/2025 1 1 Referral ID Status Reason Start Date Expiration Date V isits Requested Visits Authorized [id number] Pending Review 03/28/2024 03/28/2025 1 1 Specialty Diagnoses / Procedures Referred By Theodore kohli Referred To Contact Maternal and Medicine Diagnoses Maternal Crohn's disease affecting in third trimester ([facility]) 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 affected by growth restriction Abnormal ultrasound Procedures US MFM with or without consult Mayco Roman MD [address], [address] [place] [address] [facility] [address] [place] [address] Referral ID Status Reason Start Date Expiration Date V isits Requested Visits Authorized [id number] Pending Review 04/17/2024 04/17/2025 1 1 Referral ID Status Reason Start Date Expiration Date V isits Requested Visits Authorized [id number] Pending Review 04/17/2024 04/17/2025 1 1 Additional Source Comments INFORMATION SOURCE (unrecogn ized section and content) DATE CREATED AUTHOR 07/08/[address] [facility] DATE CREATED AUTHOR AUTHOR'S ORGANIZ ATION 09/20/2019 [facility] DATE CREATED AUTHOR AUTHOR'S ORGANIZ ATION 12/18/2019 [facility] DATE CREATED AUTHOR AUTHOR'S ORGANIZ ATION 04/03/2024 [facility] DATE CREATED AUTHOR AUTHOR'S ORGANIZ ATION 06/06/2024 [facility] DATE CREATED AUTHOR AUTHOR'S ORGANIZ ATION 07/04/2024 [facility] DATE CREATED AUTHOR AUTHOR'S ORGANIZ ATION 01/19/2025 [facility] DATE CREATED AUTHOR AUTHOR'S ORGANIZ ATION 01/22/2025 [facility] EPIC Reason for Visit (unrecogniz ed section and content) Reason Comments Routine Visit Reason Comments Post-op Visit 07/02/24 Reason Comments Outpatient Infusion Remicade Specialty Diagnoses / Procedures Referred By Theodore kohli Referred To Contact Diagnoses Crohn's disease of small and large intestines with complication ([facility]) Suresh Diaz MD [address] [address] Phone: tel: fax: [address] [address] Phone: tel: fax: Referral ID Status Reason Start Date Expiration Date V isits Requested Visits Authorized [id number] Pending Review 09/21/2020 09/21/2021 1 1 Reason Comments Follow-up Patient is here for follow up. She denies any issues at this time. She just found out she is about 8wks along. Reason Comments Outpatient Infusion remicade Specialty Diagnoses / Procedures Referred By Theodore kohli Referred To Contact Gastroenterology Diagnoses Crohn's disease of both small and large intestine with unspecified complications Remicade 5mg/kg every 56 days ( 400 mg) Auth'd from 10/25/2023-10/23/2024 for 7 Visits, HK/CF, Crohn's Procedures LA INFLIXIMAB INJECTION INFUSION Sean Abraham MD [address] [place] [address] [facility] [address] [place] [address] Referral ID Status Reason Start Date Expiration Date V isits Requested Visits Authorized [id number] Authorized 12/20/2023 12/19/2024 7 7 Reason Comments Outpatient Infusion [facility] Specialty Diagnoses / Procedures Referred By Theodore kohli Referred To Contact Gastroenterology Diagnoses Crohn's disease of both small and large intestine with unspecified complications Renflexis 400mg q8 weeks, 7 visits, 02.02.23 - 24, HK/CF, Crohn's Procedures INJECTION, INFLIXIMAB-AXXQ, BIOSIMILAR, ([facility]), 10 MG INFUSION Sean Abraham MD [address] [place] [address] [address] Referral ID Status Reason Start Date Expiration Date V isits Requested Visits Authorized [id number] Authorized 02/02/2023 02/02/2024 7 7 Reason Comments Crohn's Disease Hx C/S Reason Comments Follow-up Patient is here for a follow up and denies any issues Reason Comments Outpatient Infusion [facility] Reason Comments observation of Deviation of long a xis of heart of fet Specialty Diagnoses / Procedures Referred By Theodore kohli Referred To Contact Pediatric Cardiology Diagnoses 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 Mayco Roman MD [address], [address] [place] [address] Yadira Chau MD [address] [place] [id number] Referral ID Status Reason Start Date Expiration Date Visits Requested Visits Authorized [id number] Pending Review Specialty Services Required 02/20/2024 02/19/2025 1 1 Specialty Diagnoses / Procedures Referred By Theodore kohli Referred To Contact Gastroenterology Diagnoses Crohn's disease of both small and large intestine with unspecified complications Remicade 5mg/kg every 56 days ( 400 mg) Auth'd from 10/25/2023-10/23/2024 for 7 Visits, HK/CF, Crohn's Procedures LA INFLIXIMAB INJECTION INFUSION Sean Abraham MD [address] [place] [address] [facility] [address] [phone] Reason Comments growth restriction Crohn's Disease history of bowel resection Reason Comments add on NST for FGR Specialty Diagnoses / Procedures Referred By Theodore kohli Referred To Contact Maternal and Medicine Diagnoses growth restriction antepartum Procedures nonstress test - Maternal Medicine Mayco Roman MD [address] [facility], [address] [place] [address] Phone: tel: fax: [facility] [address] [place] [address] Phone: tel: fax: Referral ID Status Reason Start Date Expiration Date V isits Requested Visits Authorized [id number] Pending Review 05/15/2024 05/15/2025 1 1 Specialty Diagnoses / Procedures Referred By Theodore kohli Referred To Contact Gastroenterology Diagnoses Crohn's disease of both small and large intestine with unspecified complications Remicade 5mg/kg every 56 days ( 400 mg) Auth'd from 10/25/2023-10/23/2024 for 7 Visits, HK/CF, Crohn's Procedures LA INFLIXIMAB INJECTION INFUSION Sean Abraham MD [address] [place] [address] Phone: tel: fax: [facility] [address] [address] Phone: tel: fax: Reason Comments growth restriction history of bowel resection Chrohns disease Reason Comments Outpatient Infusion Crohn's Disease Remicade Specialty Diagnoses / Procedures Referred By Theodore kohli Referred To Contact Diagnoses Crohn's disease of small and large intestines with complication ([facility]) Suresh Diaz MD [address] [facility] [address] [place] [address] Phone: tel: fax: [facility] [address] [place] [address]. [facility] [address] [place] [address] Phone: tel: fax: Reason Comments Outpatient Infusion Specialty Diagnoses / Procedures Referred By Theodore kohli Referred To Contact Gastroenterology Diagnoses Crohn's disease of both small and large intestine with unspecified complications Approved: Remicade 400mg Auth Number: [id number] Visits: ICD 10: K50.819 Valid: 10.24.2024-10.24.2025 Procedures [place] INFLIXIMAB [place] [address] [place] [address] Phone: tel: fax: [facility] [address] [place] [phone] Phone: tel: fax: Referral ID Status Reason Start Date Expiration Date V isits Requested Visits Authorized [id number] Authorized 10/24/2024 10/24/2025 7 7 Reason Comments discuss cycles Care Teams (unrecognized sec tion and content) Honing Machine Set Up Operator Tool Relationship Specialty Start Date End Date Sean Abraham MD [address] [place], [place] [id number] PCP - General Family Medicine 02/29/24 Honing Machine Set Up Operator Tool Relationship Specialty Start Date End Date Sean Abraham MD [address] [place] [id number] PCP - General Family Medicine 12/17/19 Honing Machine Set Up Operator Tool Relationship Specialty Start Date End Date Sean Abraham MD [address] [place], [place] [id number] PCP - General Family Medicine 02/29/24 Honing Machine Set Up Operator Tool Relationship Specialty Start Date End Date Sean Abraham MD [address] [place] [address] PCP - General Family Medicine 10/08/23 Honing Machine Set Up Operator Tool Relationship Specialty Start Date End Date Sean Abraham MD [address] [place] [id number] PCP - General Family Medicine 10/08/23 Honing Machine Set Up Operator Tool Relationship Specialty Start Date End Date Sean Abraham MD [address] [place] [address] PCP - General Family Medicine 02/29/24 Honing Machine Set Up Operator Tool Relationship Specialty Start Date End Date Sean Abraham MD [address] [place] [address] PCP - General Family Medicine 02/29/24 Honing Machine Set Up Operator Tool Relationship Specialty Start Date End Date Sean Abraham MD [address] [place] [address] PCP - General Family Medicine 02/29/24 Honing Machine Set Up Operator Tool Relationship Specialty Start Date End Date Sean Abraham MD [address] [place] [address] PCP - General Family Medicine 02/29/24 Honing Machine Set Up Operator Tool Relationship Specialty Start Date End Date Sean Abraham MD [address] [place] [address] PCP - General Family Medicine 02/29/24 Honing Machine Set Up Operator Tool Relationship Specialty Start Date End Date Sean Abraham MD [address] [place] [id number] PCP - General Family Medicine 02/29/24 Honing Machine Set Up Operator Tool Relationship Specialty Start Date End Date Sean Abraham MD [address] [place] [address] [id number] PCP - General Family Medicine 02/29/24 Honing Machine Set Up Operator Tool Relationship Specialty Start Date End Date Sean Abraham MD [address] [place] [address] PCP - General Family Medicine 02/29/24 Honing Machine Set Up Operator Tool Relationship Specialty Start Date End Date Sean Abraham MD [address] [place] [address] PCP - General Family Medicine 02/29/24 Honing Machine Set Up Operator Tool Relationship Specialty Start Date End Date Sean Abraham MD [address] [place] [id number] PCP - General Family Medicine 02/29/24 Honing Machine Set Up Operator Tool Relationship Specialty Start Date End Date Sean Abraham MD [address] [place] [address] PCP - General Family Medicine 02/29/24 Honing Machine Set Up Operator Tool Relationship Specialty Start Date End Date Sean Abraham MD [address] [place] [id number] PCP - General Family Medicine 02/29/24 FOR [...] BE BASED ON THE PRIMARY CLINICAL RECORDS. [facility] Center[facility] provides no warranty or guarantee of the accuracy or completeness of information in this document.
[2025-02-13 19:08] LABS: Age Gdln ACOG Testing Note (.); IGP, Aptima HPV, rfx 16/18,45 Note (.)
== END 2025-02-10 22:08 | disposition home or self-care (01) ==
LOC: LAB 22:07
PROVIDERS: PCP Family Medicine; Visit Provider Obstetrics & Gynecology
DX: Z01.419 Encounter for gynecological examination (general) (routine) without abnormal findings (principal)
CPT/HCPCS: 88175